=== PATIENT | male | born 1965 | race American Indian/Alaskan Native ===

== ENCOUNTER 2018-10-19 18:59 | Emergency (ER) | payer MEDICARE ==
[2018-10-19 20:23] LABS: Basophils % (Auto) 0.5 % (0.0-1.8); Eosinophils # (Auto) 0.1 K/mm3 (0.0-0.4); Eosinophils % (Auto) 2.6 % (0.0-4.3); Hematocrit 38.6 % (35.5-45.6); Hemoglobin 13.6 gm/dl (11.8-15.2); Lymphocytes # (Auto) 1.6 K/mm3 (1.2-5.4); Lymphocytes % (Auto) 46.4 % (13.4-35.0); Mean Corpuscular HGB Conc 35 % (32-34); Mean Corpuscular Volume 94 fl (84-94); Monocytes # (Auto) 0.4 K/mm3 (0.0-0.8); Monocytes % (Auto) 11.5 % (0.0-7.3); Platelet Count 191 K/mm3 (140-440); Red Blood Count 4.12 M/mm3 (3.65-5.03); Red Cell Distribution Width 13.3 % (13.2-15.2)
[2018-10-19 20:56] LABS: Bilirubin,Urine NEG (Negative); Blood,Urine NEG (Negative); Color,Urine Straw (Yellow); Protein,Urine <15 mg/dL mg/dL (Negative); Urobilinogen,Urine < 2.0 mg/dL (<2.0); WBC,Urine < 1.0 /HPF (0.0-6.0)
[2018-10-19 20:56] LABS: Creatine Kinase MB 1.7 ng/mL (0.0-4.0)
[2018-10-19 20:57] LABS: Alanine Aminotransferase 13 units/L (7-56); Albumin 3.9 g/dL (3.9-5); BUN/Creatinine Ratio 11; Blood Urea Nitrogen 10 mg/dL (9-20); Calcium 8.9 mg/dL (8.4-10.2); Hemolysis Index 8
--- NOTE | 2018-10-19 21:05 | XRay Report ---
FINAL REPORT EXAM: XR CHEST ROUTINE 2V HISTORY: Cough and congestion COMPARISON: August 2018 FINDINGS:: Frontal and lateral views of the chest obtained. Heart normal in size. Prior median quiles otomy.. No focal consolidation or effusion. No pneumothorax. Visualized bony thorax is grossly intact . IMPRESSION:: No acute findings.
--- NOTE | 2018-10-19 21:25 | Emergency Department Report ---
ED General Adult HPI - General Chief complaint: Dizziness Stated complaint: DIZZY,PASSING Time Seen by Provider: 10/19/18 20:53 Source: patient Mode of arrival: Ambulatory Limitations: Other - History of Present Illness Initial comments: Patient is a 53-year-old male past history of HIV CABG lupus and COPD who presents with syncopal episode. Patient states that he had a syncopal episode today he states that this is been going on. Much every day for the last 23 days. Patient states that he has some mild body pain all over his body. Patient denies any nausea or vomiting. He was admitted to this hospital 2 weeks ago for a similar complaint and had a full workup. Patient has no chest pain and was brought in by EMS. - Related Data Home Medications Medication Instructions Recorded Confirmed Last Taken Dronabinol [Marinol] 10 mg PO BID 09/20/18 09/20/18 09/19/18 22:00 Tapentadol HCl [Nucynta] 75 mg PO BID 09/20/18 09/20/18 09/19/18 22:00 Tapentadol HCl [Nucynta] 75 mg PO DAILY 09/20/18 09/20/18 09/18/18 ARIPiprazole [Abilify] 50 mg PO DAILY 09/21/18 09/21/18 Unknown Clopidogrel Bisulfate [Plavix] 75 mg PO DAILY 09/21/18 09/21/[address] [Depakote Dr] 500 mg PO DAILY 09/21/18 09/21/18 Unknown Doxepin [SINEquan] 10 mg PO QHS 09/21/18 09/21/18 Unknown Furosemide [Lasix] 40 mg PO DAILY 09/21/18 09/21/18 Unknown Potassium Chloride [K-Dur] 20 meq PO QDAY 09/21/18 09/21/18 Unknown Rosuvastatin Calcium [Crestor] 40 mg PO DAILY 09/21/18 09/21/18 Unknown busPIRone [Buspar] 10 mg PO DAILY 09/21/18 09/21/18 Unknown Previous Rx's Medication Instructions Recorded Last Taken Type Doxycycline [Vibramycin CAP] 100 mg PO Q12HR #10 capsule 09/09/18 09/19/18 Rx Acetaminophen/Codeine [Tylenol 1 tab PO Q6H PRN #14 tab 09/17/18 09/19/18 Rx /Codeine # 3 tab] Ofloxacin 0.3% [Ocuflox] 1 - 2 drops OP TID #1 bottle 09/18/18 09/19/18 Rx Meclizine HCl [Meclizine CHEW] 25 mg PO Q6H #20 tab.chew 10/19/18 Unknown Rx oxyCODONE /ACETAMINOPHEN [Percocet 1 tab PO Q4HR #7 tab 10/19/18 Unknown Rx 5/325] Allergies Allergy/AdvReac Type Severity Reaction Status Date / Time metoclopramide [From Reglan] Allergy Anaphylaxis Verified 09/09/18 01:28 prochlorperazine Allergy Anaphylaxis Verified 09/09/18 01:28 [From Compazine] promethazine [From Phenergan] Allergy Anaphylaxis Verified 09/09/18 01:28 ED Review of Systems ROS: Stated complaint: DIZZY,PASSING Other details as noted in HPI Constitutional: denies: chills, fever Eyes: denies: eye pain, eye discharge, vision change ENT: denies: ear pain, throat pain Respiratory: denies: cough, shortness of breath, wheezing Cardiovascular: syncope. denies: chest pain, palpitations Endocrine: no symptoms reported Gastrointestinal: denies: abdominal pain, nausea, diarrhea Genitourinary: denies: urgency, dysuria Musculoskeletal: denies: back pain, joint swelling, arthralgia Skin: denies: rash, lesions Neurological: denies: headache, weakness, paresthesias Psychiatric: denies: anxiety, depression Hematological/Lymphatic: denies: easy bleeding, easy bruising ED Past Medical Hx - Past Medical History Previous Medical History?: Yes Hx Hypertension: Yes Hx Heart Attack/AMI: Yes (x6 CABG 2016) Hx Congestive Heart Failure: Yes Hx Diabetes: Yes Hx Seizures: Yes Hx Psychiatric Treatment: Yes (PTSD,depression) Hx Asthma: Yes Hx COPD: Yes Hx HIV: Yes (Off meds x 4 months) Additional medical history: Cerebral palsy - Surgical History Past Surgical History?: Yes Additional Surgical History: CABG - Social History Smoking Status: Current Every Day Smoker - Medications Home Medications: Home Medications Medication Instructions Recorded Confirmed Last Taken Type Doxycycline [Vibramycin CAP] 100 mg PO Q12HR #10 capsule 09/09/18 09/20/18 09/19/18 Rx Acetaminophen/Codeine [Tylenol 1 tab PO Q6H PRN #14 tab 09/17/18 09/20/18 09/19/18 Rx /Codeine # 3 tab] Ofloxacin 0.3% [Ocuflox] 1 - 2 drops OP TID #1 bottle 09/18/18 09/20/18 09/19/18 Rx Dronabinol [Marinol] 10 mg PO BID 09/20/18 09/20/18 09/19/18 22:00 History Tapentadol HCl [Nucynta] 75 mg PO BID 09/20/18 09/20/18 09/19/18 22:00 History Tapentadol HCl [Nucynta] 75 mg PO DAILY 09/20/18 09/20/18 09/18/18 History ARIPiprazole [Abilify] 50 mg PO DAILY 09/21/18 09/21/18 Unknown History Clopidogrel Bisulfate [Plavix] 75 mg PO DAILY 09/21/18 09/21/[address] [Depakote Dr] 500 mg PO DAILY 09/21/18 09/21/18 Unknown History Doxepin [SINEquan] 10 mg PO QHS 09/21/18 09/21/18 Unknown History Furosemide [Lasix] 40 mg PO DAILY 09/21/18 09/21/18 Unknown History Potassium Chloride [K-Dur] 20 meq PO QDAY 09/21/18 09/21/18 Unknown History Rosuvastatin Calcium [Crestor] 40 mg PO DAILY 09/21/18 09/21/18 Unknown History busPIRone [Buspar] 10 mg PO DAILY 09/21/18 09/21/18 Unknown History Meclizine HCl [Meclizine CHEW] 25 mg PO Q6H #20 tab.chew 10/19/18 Unknown Rx oxyCODONE /ACETAMINOPHEN [Percocet 1 tab PO Q4HR #7 tab 10/19/18 Unknown Rx 5/325] ED Physical Exam - General Limitations: Other General appearance: alert, in no apparent distress - Head Head exam: Present: atraumatic, normocephalic - Eye Eye exam: Present: normal appearance - ENT ENT exam: Present: mucous membranes moist - Neck Neck exam: Present: normal inspection - Respiratory Respiratory exam: Present: normal lung sounds bilaterally. Absent: respiratory distress - Cardiovascular Cardiovascular Exam: Present: regular rate, normal rhythm. Absent: systolic murmur, diastolic murmur, rubs, gallop - GI/Abdominal GI/Abdominal exam: Present: soft, normal bowel sounds - Rectal Rectal exam: Present: deferred - Extremities Exam Extremities exam: Present: normal inspection - Back Exam Back exam: Present: normal inspection - Neurological Exam Neurological exam: Present: alert, oriented X3 - Psychiatric Psychiatric exam: Present: normal affect, normal mood - Skin Skin exam: Present: warm, dry, intact, normal color. Absent: rash ED Course Vital Signs 10/19/18 10/19/18 10/19/18 19:31 21:12 21:15 Temperature 98.6 F Pulse Rate 84 82 73 Respiratory 20 24 Rate Blood Pressure 135/82 127/79 O2 Sat by Pulse 99 94 Oximetry ED Medical Decision Making - Lab Data Result diagrams: 10/19/18 20:00 10/19/18 20:00 Lab Results 10/19/18 10/19/18 10/19/18 Range/Units 19:58 20:00 20:00 WBC 3.4 L (4.5-11.0) K/mm3 RBC 4.12 (3.65-5.03) M/mm3 Hgb 13.6 (11.8-15.2) gm/dl Hct 38.6 (35.5-45.6) % MCV 94 (84-94) fl MCH 33 H (28-32) pg MCHC 35 H (32-34) % RDW 13.3 (13.2-15.2) % Plt Count 191 (140-440) K/mm3 Lymph % (Auto) 46.4 H (13.4-35.0) % [place] % (Auto) 11.5 H (0.0-7.3) % Eos % (Auto) 2.6 (0.0-4.3) % Baso % (Auto) 0.5 (0.0-1.8) % Lymph # 1.6 (1.2-5.4) K/mm3 [place] # 0.4 (0.0-0.8) K/mm3 Eos # 0.1 (0.0-0.4) K/mm3 Baso # 0.0 (0.0-0.1) K/mm3 Seg Neutrophils % 39.0 L (40.0-70.0) % Seg Neutrophils # 1.3 L (1.8-7.7) K/mm3 Sodium 138 (137-145) mmol/L Potassium 4.7 (3.6-5.0) mmol/L Chloride 104.7 (98-107) mmol/L Carbon Dioxide 23 (22-30) mmol/L Anion Gap 15 mmol/L BUN 10 (9-20) mg/dL Creatinine 0.9 (0.8-1.5) mg/dL Estimated GFR > 60 ml/min BUN/Creatinine Ratio 11 % Glucose 105 H (75-100) mg/dL Calcium 8.9 (8.4-10.2) mg/dL Total Bilirubin 0.30 (0.1-1.2) mg/dL AST 16 (5-40) units/L ALT 13 (7-56) units/L Alkaline Phosphatase 81 (35-129) units/L Total Creatine Kinase 129 (55-170) units/L CK-MB (CK-2) 1.7 (0.0-4.0) ng/mL CK-MB (CK-2) Rel Index 1.3 (0-4) Troponin T < 0.010 (0.00-0.029) ng/mL Total Protein 7.4 (6.3-8.2) g/dL Albumin 3.9 (3.9-5) g/dL Albumin/Globulin Ratio 1.1 % Lipase 29 (13-60) units/L Urine Color Straw (Yellow) Urine Turbidity Clear (Clear) Urine pH 7.0 (5.0-7.0) Ur Specific [place] 1.010 (1.003-1.030) Urine Protein <15 mg/dl (Negative) mg/dL Urine Glucose (UA) Neg (Negative) mg/dL Urine Ketones Neg (Negative) mg/dL Urine Blood Neg (Negative) Urine Nitrite Neg (Negative) Urine Bilirubin Neg (Negative) Urine Urobilinogen < 2.0 (<2.0) mg/dL Ur Leukocyte Esterase Neg (Negative) Urine WBC (Auto) < 1.0 (0.0-6.0) /HPF Urine RBC (Auto) 1.0 (0.0-6.0) /HPF - EKG Data -: EKG Interpreted by Me - EKG Data 10/19/18 21:56 K she shows normal sinus rhythm no ST segment elevation noted T-wave inversion normal axis. - Radiology Data Radiology results: report reviewed, image reviewed Chest x-ray: Shows no acute cardiopulmonary process prior sternotomy wires. Head CT: Shows no acute intracranial process - Medical Decision Making Chief medical diagnosis: Vasogenic syncope Differential medical diagnosis: Arrhythmia, electrolyte abnormality I will get chest x-ray, CBC, BMP, troponin, EKG I will give PATIENT oral Valium The patient's blood work is unremarkable patient states that he does not want to be admitted to the hospital engaged in shared decision-making. Patient states that he will follow-up with his primary care doctor and states that there is "no way I am staying here." I'll send patient home with Percocet and meclizine Critical care attestation.: If time is entered above; I have spent that time in minutes in the direct care of this critically ill patient, excluding procedure time. ED Disposition Clinical Impression: History of syncope, Myalgia Syncope Qualifiers: Syncope type: unspecified Qualified Code(s): R55 - Syncope and collapse Disposition: DC- TO HOME OR SELFCARE Is pt being admited?: No Does the pt Need Aspirin: No Condition: Stable Instructions: Syncope (ED) Prescriptions: Meclizine HCl [Meclizine CHEW] 25 mg PO Q6H #20 tab.chew oxyCODONE /ACETAMINOPHEN [Percocet 5/325] 1 tab PO Q4HR #7 tab Referrals: ARASH CUEVAS MD [Staff Physician] - 3-5 Days
[2018-10-19] MEDS ORDERED: VALIUM PO ONE (21:28)
[2018-10-19 21:29] VITALS: BP 127/79
[2018-10-19] MEDS ORDERED: PERCOCET 5/325 PO ONE (22:06)
--- NOTE | 2018-10-19 22:13 | Cat Scan Report ---
FINAL REPORT EXAM: CT HEAD/BRAIN WO CON HISTORY: Syncope COMPARISON: CT of the head from August 2018. TECHNIQUE: Axial images obtained skull base through vertex. FINDINGS: No acute intracranial hemorrhage, midline shift or pathologic extra axial fluid collection. Stable vo lume loss the right cerebral hemisphere. Ex vacuo dilatation right lateral ventricle. Stable mild chr onic small vessel ischemic disease. Ocular globes are grossly unremarkable. Otherwise, randall-white dif ferentiation preserved. Calvarium grossly intact. Remote bilateral nasal bone fractures. Mastoid air cells are clear. IMPRESSION: No grossly acute intracranial abnormality. Stable volume loss the right cerebral hemisphere and mild chronic small vessel ischemic disease.
== END 2018-10-19 23:49 | disposition home or self-care (01) ==
LOC: ED 18:59
DX: R55 Syncope and collapse (principal); M79.10 Myalgia, unspecified site; I11.0 Hypertensive heart disease with heart failure; I50.9 Heart failure, unspecified; I25.2 Old myocardial infarction; E11.9 Type 2 diabetes mellitus without complications; F32.9 Major depressive disorder, single episode, unspecified; F43.10 Post-traumatic stress disorder, unspecified; J44.9 Chronic obstructive pulmonary disease, unspecified; F17.200 Nicotine dependence, unspecified, uncomplicated; G80.9 Cerebral palsy, unspecified; Z95.1 Presence of aortocoronary bypass graft; Z88.2 Allergy status to sulfonamides; Z88.8 Allergy status to other drugs, medicaments and biological substances
CPT/HCPCS: 36415; 70450; 71046; 80053; 81001; 82550; 82553; 83690; 84484; 85025; 93005; 93010

== ENCOUNTER 2018-11-14 23:28 | Emergency (ER) | payer MEDICARE ==
--- NOTE | 2018-11-15 00:37 | Emergency Department Report ---
ED General Adult HPI - General Chief complaint: Abdominal Pain Stated complaint: ABD PAIN Time Seen by Provider: 11/15/18 00:29 Source: patient, RN notes reviewed, old records reviewed Mode of arrival: Wheelchair Limitations: No Limitations - History of Present Illness Initial comments: This is a 53-year-old gentleman. I have evaluated him multiple times in the past. A few days ago, the patient was in this emergency department, and had a prolonged stay in room 18, with multiple complaints, including dizziness, syncope, diarrhea, incontinence. Of note, the patient was observed on a olive picker without any episodes of hypotension or arrhythmia, did not have any witnessed episodes of syncope, and multiple nurses, multiple physicians chuyin orion myself did not witness any episodes of diarrhea or loss of consciousness. He was seen in consultation with the hospital physician team, who prescribed him antibiotics, and recommended outpatient follow-up. The patient reports that he's been taking his antibiotic. He reports he is going to follow up with a city planner next week. He presents today to the emergency department stating "the same thing is happening to me." The patient is noted to be walking around his room without difficulty. He is noted to be eating food without difficulty or vomiting. He's not had any episodes of diarrhea. I asked the patient if he would like to speak to a heel caser or health care social worker because of housing issues. He indicated that he would like to do that. The patient is currently resting in his room, room 26, in no acute distress. -: Gradual Severity scale (0 -10): 10 - Related Data Home Medications Medication Instructions Recorded Confirmed Last Taken Dronabinol [Marinol] 10 mg PO BID 09/20/18 11/15/18 09/19/18 22:00 Tapentadol HCl [Nucynta] 75 mg PO BID 09/20/18 11/15/18 09/19/18 22:00 ARIPiprazole [Abilify] 50 mg PO DAILY 09/21/18 11/15/18 Unknown Clopidogrel Bisulfate [Plavix] 75 mg PO DAILY 09/21/18 11/15/18 Unknown Divalproex [Renetta Dykes] 500 mg PO DAILY 09/21/18 11/15/18 Unknown Doxepin [SINEquan] 10 mg PO QHS 09/21/18 11/15/18 Unknown Furosemide [Lasix] 40 mg PO DAILY 09/21/18 11/15/18 Unknown Potassium Chloride [K-Dur] 20 meq PO QDAY 09/21/18 11/15/18 Unknown Rosuvastatin Calcium [Crestor] 40 mg PO DAILY 09/21/18 11/15/18 Unknown busPIRone [Buspar] 10 mg PO DAILY 09/21/18 11/15/18 Unknown Oxycodone HCl [Oxycontin] 20 mg PO Q12H 11/12/18 11/15/18 Unknown Previous Rx's Medication Instructions Recorded Last Taken Type Doxycycline [Vibramycin CAP] 100 mg PO Q12HR #10 capsule 09/09/18 09/19/18 Rx Acetaminophen/Codeine [Tylenol 1 tab PO Q6H PRN #14 tab 09/17/18 09/19/18 Rx /Codeine # 3 tab] Ofloxacin 0.3% [Ocuflox] 1 - 2 drops OP TID #1 bottle 09/18/18 09/19/18 Rx Meclizine HCl [Meclizine CHEW] 25 mg PO Q6H #20 tab.chew 10/19/18 Unknown Rx oxyCODONE /ACETAMINOPHEN [Percocet 1 tab PO Q4HR #7 tab 10/19/18 Unknown Rx 5/325] Oxycodone HCl/Acetaminophen 1 each PO Q6HR PRN #20 tablet 11/12/18 Unknown Rx [Percocet 10/325 mg] levoFLOXacin [Levaquin] 750 mg PO QDAY #14 tablet 11/12/18 Unknown Rx metroNIDAZOLE [Flagyl] 500 mg PO Q8HR #21 tablet 11/12/18 Unknown Rx Allergies Allergy/AdvReac Type Severity Reaction Status Date / Time metoclopramide [From Reglan] Allergy Anaphylaxis Verified 09/09/18 01:28 prochlorperazine Allergy Anaphylaxis Verified 09/09/18 01:28 [From Compazine] promethazine [From Phenergan] Allergy Anaphylaxis Verified 09/09/18 01:28 ED Review of Systems ROS: Stated complaint: ABD PAIN Other details as noted in HPI Constitutional: denies: fever, malaise Eyes: denies: vision change Respiratory: denies: cough Cardiovascular: denies: chest pain Gastrointestinal: diarrhea. denies: abdominal pain Psychiatric: anxiety ED Past Medical Hx - Past Medical History Previous Medical History?: Yes Hx Hypertension: Yes Hx CVA: Yes (left sided weakness) Hx Heart Attack/AMI: Yes (x6 CABG 2016) Hx Congestive Heart Failure: Yes Hx Diabetes: Yes Hx Seizures: Yes Hx Psychiatric Treatment: Yes (PTSD,depression) Hx Asthma: Yes Hx COPD: Yes Hx HIV: Yes (Off meds x 4 months) Additional medical history: Cerebral palsy - Surgical History Past Surgical History?: Yes Additional Surgical History: CABG - Social History Smoking Status: Current Every Day Smoker Substance Use Type: Alcohol, Marijuana - Medications Home Medications: Home Medications Medication Instructions Recorded Confirmed Last Taken Type Doxycycline [Vibramycin CAP] 100 mg PO Q12HR #10 capsule 09/09/18 11/15/18 09/19/18 Rx Acetaminophen/Codeine [Tylenol 1 tab PO Q6H PRN #14 tab 09/17/18 11/15/18 09/19/18 Rx /Codeine # 3 tab] Ofloxacin 0.3% [Ocuflox] 1 - 2 drops OP TID #1 bottle 09/18/18 11/15/18 09/19/18 Rx Dronabinol [Marinol] 10 mg PO BID 09/20/18 11/15/18 09/19/18 22:00 History Tapentadol HCl [Nucynta] 75 mg PO BID 09/20/18 11/15/18 09/19/18 22:00 History ARIPiprazole [Abilify] 50 mg PO DAILY 09/21/18 11/15/18 Unknown History Clopidogrel Bisulfate [Plavix] 75 mg PO DAILY 09/21/18 11/15/18 Unknown History Divalproex [Renetta Dykes] 500 mg PO DAILY 09/21/18 11/15/18 Unknown History Doxepin [SINEquan] 10 mg PO QHS 09/21/18 11/15/18 Unknown History Furosemide [Lasix] 40 mg PO DAILY 09/21/18 11/15/18 Unknown History Potassium Chloride [K-Dur] 20 meq PO QDAY 09/21/18 11/15/18 Unknown History Rosuvastatin Calcium [Crestor] 40 mg PO DAILY 09/21/18 11/15/18 Unknown History busPIRone [Buspar] 10 mg PO DAILY 09/21/18 11/15/18 Unknown History Meclizine HCl [Meclizine CHEW] 25 mg PO Q6H #20 tab.chew 10/19/18 11/15/18 Unknown Rx oxyCODONE /ACETAMINOPHEN [Percocet 1 tab PO Q4HR #7 tab 10/19/18 11/15/18 Unknown Rx 5/325] Oxycodone HCl [Oxycontin] 20 mg PO Q12H 11/12/18 11/15/18 Unknown History Oxycodone HCl/Acetaminophen 1 each PO Q6HR PRN #20 tablet 11/12/18 11/15/18 Unknown Rx [Percocet 10/325 mg] levoFLOXacin [Levaquin] 750 mg PO QDAY #14 tablet 11/12/18 11/15/18 Unknown Rx metroNIDAZOLE [Flagyl] 500 mg PO Q8HR #21 tablet 11/12/18 11/15/18 Unknown Rx ED Physical Exam - General Limitations: Physical Limitation General appearance: alert, in no apparent distress - Head Head exam: Present: atraumatic, normocephalic - Eye Eye exam: Present: normal appearance, EOMI. Absent: nystagmus - ENT ENT exam: Present: normal exam, normal orophraynx, mucous membranes moist - Neck Neck exam: Present: normal inspection, full ROM. Absent: tenderness, meningismus - Respiratory Respiratory exam: Present: normal lung sounds bilaterally. Absent: respiratory distress - Cardiovascular Cardiovascular Exam: Present: regular rate, normal rhythm, normal heart sounds. Absent: bradycardia, tachycardia, irregular rhythm, systolic murmur, diastolic murmur, rubs, gallop - GI/Abdominal GI/Abdominal exam: Present: soft, pulsatile mass. Absent: distended, tenderness, guarding, rebound, rigid - Rectal Rectal exam: Present: deferred - Extremities Exam Extremities exam: Present: normal inspection, full ROM, other (patient moving 4 extremities spontaneously. No palpable cord. No redness, pus or streaking.). Absent: pedal edema, calf tenderness - Back Exam Back exam: Present: normal inspection, full ROM. Absent: paraspinal tenderness, vertebral tenderness - Neurological Exam Neurological exam: Present: alert, oriented X3, normal gait, other (there is no facial droop. Speaking in full sentences. Moving 4 extremities spontaneously.) - Psychiatric Psychiatric exam: Present: normal affect, normal mood - Skin Skin exam: Present: warm, dry, intact, normal color. Absent: rash ED Course Vital Signs 11/14/18 23:36 Temperature 98.2 F Pulse Rate 83 Respiratory 20 Rate Blood Pressure 136/88 O2 Sat by Pulse 97 Oximetry ED Medical Decision Making - Lab Data Vital Signs 11/14/18 23:36 Temperature 98.2 F Pulse Rate 83 Respiratory 20 Rate Blood Pressure 136/88 O2 Sat by Pulse 97 Oximetry - Medical Decision Making Differential diagnosis, including but not limited to: Homelessness, secondary gain, enteritis Assessment and plan: 53-year-old woman who presents to the emergency room, with a wheelchair, but walking around, has numerous bags packed with him, no active vomiting, no active diarrhea, stable vital signs, unremarkable physical exam. The patient appears to have a primary social issue as his main problem. He does not appear to have an acute medical decompensation. A case management consultation has been requested. The patient may be discharged in the [facility] waiting room pending case management evaluation. Critical care attestation.: If time is entered above; I have spent that time in minutes in the direct care of this critically ill patient, excluding procedure time. ED Disposition Clinical Impression: Homelessness Disposition: DC-01 TO HOME OR SELFCARE Is pt being admited?: No Does the pt Need Aspirin: No Condition: Stable Additional Instructions: Continue outpatient medications. Follow up with a primary care doctor or city planner within the next 2 weeks. Return to the emergency room right away with new, worsened, different symptoms. Referrals: VY LEE [Primary Care Provider] - 3-5 Days ADRIEL FLORES MD [Staff Physician] - 3-5 Days
[2018-11-15 03:18] VITALS: BP 134/76
== END 2018-11-15 03:30 | disposition home or self-care (01) ==
LOC: ED 23:28
DX: R42 Dizziness and giddiness (principal); R55 Syncope and collapse; I11.0 Hypertensive heart disease with heart failure; I50.9 Heart failure, unspecified; I25.2 Old myocardial infarction; E11.9 Type 2 diabetes mellitus without complications; F32.9 Major depressive disorder, single episode, unspecified; F43.10 Post-traumatic stress disorder, unspecified; J44.9 Chronic obstructive pulmonary disease, unspecified; F17.200 Nicotine dependence, unspecified, uncomplicated; F12.10 Cannabis abuse, uncomplicated; Z59.0 Homelessness; Z86.73 Personal history of transient ischemic attack (TIA), and cerebral infarction without residual deficits; Z95.1 Presence of aortocoronary bypass graft; Z86.69 Personal history of other diseases of the nervous system and sense organs; Z88.8 Allergy status to other drugs, medicaments and biological substances
CPT/HCPCS: 93005; 93010; 99282

== ENCOUNTER 2018-12-21 08:52 | Inpatient (IN) | payer MEDICARE ==
[2018-12-21 09:35] LABS: Eosinophils # (Auto) 0.2 K/mm3 (0.0-0.4); Eosinophils % (Auto) 4.4 % (0.0-4.3); Hematocrit 42.2 % (35.5-45.6); Hemoglobin 14.4 gm/dl (11.8-15.2); Lymphocytes # (Auto) 1.5 K/mm3 (1.2-5.4); Lymphocytes % (Auto) 37.8 % (13.4-35.0); Mean Corpuscular HGB Conc 34 % (32-34); Mean Corpuscular Volume 91 fl (84-94); Monocytes # (Auto) 0.5 K/mm3 (0.0-0.8); Monocytes % (Auto) 11.9 % (0.0-7.3); Platelet Count 197 K/mm3 (140-440); Red Blood Count 4.64 M/mm3 (3.65-5.03); Red Cell Distribution Width 12.3 % (13.2-15.2)
[2018-12-21] MEDS ORDERED: NORCO 5/325 PO ONE (09:46)
[2018-12-21 09:47] LABS: BUN/Creatinine Ratio 15; Blood Urea Nitrogen 12 mg/dL (9-20); Calcium 8.5 mg/dL (8.4-10.2); Hemolysis Index 34
--- NOTE | 2018-12-21 09:53 | Emergency Department Report ---
HPI - General Chief Complaint: GI Bleed Time Seen by Provider: 12/21/18 09:34 - HPI HPI: Room 22 The patient is a 53-year-old male presented with a chief complaint of syncope and rectal bleeding. Patient states for the past 3 weeks he has had multiple s yncopal episodes daily. Patient states he gets dizzy whenever he stands sits or lays. Patient states he gets dizzy and then has a syncopal episode. The patient states yesterday he has 7-8 syncopal episodes and today he's had approximately 3-4 so far. Patient states for the past 5 days he's noticed streaks of blood on his stool. Patient denies rectal pain. Patient states for the past 3 days he's noticed blood in his urine. Patient denies dysuria. Patient admits to occasional nausea vomiting but denies hematemesis. The patient currently complains of his chronic body aching secondary to his lupus Location: [See above] Duration: [See above] Quality: Pain Severity: Moderate Modifying factors: [see above] Context: [see above] Mode of transportation: [not driving] ED Past Medical Hx - Past Medical History Hx Hypertension: Yes Hx CVA: Yes (left sided weakness) Hx Heart Attack/AMI: Yes (x6 CABG 2016) Hx Congestive Heart Failure: Yes Hx Diabetes: Yes Hx Seizures: Yes Hx Psychiatric Treatment: Yes (PTSD,depression) Hx Asthma: Yes Hx COPD: Yes Hx HIV: Yes (last CD4 count 26 (November 2018)) Additional medical history: Cerebral palsy - Surgical History Additional Surgical History: CABG - Family History Family history: no significant - Social History Smoking Status: Current Some Day Smoker Substance Use Type: None (denies illicit drug use) - Medications Home Medications: Home Medications Medication Instructions Recorded Confirmed Last Taken Type Doxycycline [Vibramycin CAP] 100 mg PO Q12HR #10 capsule 09/09/18 11/15/18 09/19/18 Rx Acetaminophen/Codeine [Tylenol 1 tab PO Q6H PRN #14 tab 09/17/18 11/15/18 09/19/18 Rx /Codeine # 3 tab] Ofloxacin 0.3% [Ocuflox] 1 - 2 drops OP TID #1 bottle 09/18/18 11/15/18 09/19/18 Rx Dronabinol [Marinol] 10 mg PO BID 09/20/18 11/15/18 09/19/18 22:00 History Tapentadol HCl [Nucynta] 75 mg PO BID 09/20/18 11/15/18 09/19/18 22:00 History ARIPiprazole [Abilify] 50 mg PO DAILY 09/21/18 11/15/18 Unknown History Clopidogrel Bisulfate [Plavix] 75 mg PO DAILY 09/21/18 11/15/[address] [Depakote Dr] 500 mg PO DAILY 09/21/18 11/15/18 Unknown History Doxepin [SINEquan] 10 mg PO QHS 09/21/18 11/15/18 Unknown History Furosemide [Lasix] 40 mg PO DAILY 09/21/18 11/15/18 Unknown History Potassium Chloride [K-Dur] 20 meq PO QDAY 09/21/18 11/15/18 Unknown History Rosuvastatin Calcium [Crestor] 40 mg PO DAILY 09/21/18 11/15/18 Unknown History busPIRone [Buspar] 10 mg PO DAILY 09/21/18 11/15/18 Unknown History Meclizine HCl [Meclizine CHEW] 25 mg PO Q6H #20 tab.chew 10/19/18 11/15/18 Unknown Rx oxyCODONE /ACETAMINOPHEN [Percocet 1 tab PO Q4HR #7 tab 10/19/18 11/15/18 Unknown Rx 5/325] Oxycodone HCl [Oxycontin] 20 mg PO Q12H 11/12/18 11/15/18 Unknown History Oxycodone HCl/Acetaminophen 1 each PO Q6HR PRN #20 tablet 11/12/18 11/15/18 Unknown Rx [Percocet 10/325 mg] levoFLOXacin [Levaquin] 750 mg PO QDAY #14 tablet 11/12/18 11/15/18 Unknown Rx metroNIDAZOLE [Flagyl] 500 mg PO Q8HR #21 tablet 11/12/18 11/15/18 Unknown Rx ED Review of Systems ROS: Stated complaint: RECTUM BLEEDING/PAIN Other details as noted in HPI Constitutional: no symptoms reported Eyes: denies: eye pain ENT: denies: throat pain Respiratory: no symptoms reported Cardiovascular: denies: chest pain Endocrine: no symptoms reported Gastrointestinal: nausea, vomiting, hematochezia. denies: hematemesis Genitourinary: hematuria Musculoskeletal: myalgia Neurological: other (syncope) Physical Exam - Physical Exam Vital Signs: Vital Signs 12/21/18 08:58 Temperature 98.3 F Pulse Rate 95 H Respiratory 18 Rate Blood Pressure 126/83 [Left] O2 Sat by Pulse 98 Oximetry Physical Exam: GENERAL: The patient is well-developed well-nourished male lying on stretcher not appearing to be in acute distress. [] HEENT: Normocephalic. Atraumatic. Extraocular motions are intact. Patient has moist mucous membranes. NECK: Supple. No meningitic signs are noted. Trachea midline CHEST/LUNGS: Clear to auscultation. There is no respiratory distress noted. HEART/CARDIOVASCULAR: Regular. There is no tachycardia. There is no gallop rub or murmur. ABDOMEN: Abdomen is soft, nontender. Patient has normal bowel sounds. There is no abdominal distention. SKIN: There is no rash. There is no edema. There is no diaphoresis. NEURO: The patient is awake, alert, and oriented. The patient is cooperative. The patient has no focal neurologic deficits. The patient has normal speech. Cranial nerves II through XII grossly intact, no drift MUSCULOSKELETAL: There is no evidence of acute injury. ED Course Vital Signs 12/21/18 08:58 Temperature 98.3 F Pulse Rate 95 H Respiratory 18 Rate Blood Pressure 126/83 [Left] O2 Sat by Pulse 98 Oximetry - EJ/Peripheral Line Neck R Time Out Performed: No Indications: nurses unable to establis Skin Cleansed in Sterile Fashion: Yes Size: 20 Dressing Placed: Tegaderm, tape Patient Tolerated Procedure: no complications ED Medical Decision Making - Lab Data Result diagrams: 12/21/18 09:04 12/21/18 09:04 Laboratory Tests 12/21/18 12/21/18 12/21/18 09:04 09:04 09:04 WBC 3.9 L RBC 4.64 Hgb 14.4 Hct 42.2 MCV 91 MCH 31 MCHC 34 RDW 12.3 L Plt Count 197 Lymph % (Auto) 37.8 H [place] % (Auto) 11.9 H Eos % (Auto) 4.4 H Baso % (Auto) 1.0 Lymph # 1.5 Woodson # 0.5 Eos # 0.2 Baso # 0.0 Seg Neutrophils % 44.9 Seg Neutrophils # 1.8 PT INR APTT D-Dimer Sodium 137 Potassium 3.8 Chloride 103.3 Carbon Dioxide 23 Anion Gap 15 BUN 12 Creatinine 0.8 Estimated GFR > 60 BUN/Creatinine Ratio 15 Glucose 100 Calcium 8.5 Total Bilirubin Direct Bilirubin Indirect Bilirubin AST ALT Alkaline Phosphatase Total Creatine Kinase CK-MB (CK-2) CK-MB (CK-2) Rel Index Troponin T Total Protein Albumin Albumin/Globulin Ratio Valproic Acid Blood Type A POSITIVE Antibody Screen Negative 12/21/18 12/21/18 12/21/18 09:04 09:04 09:38 WBC RBC Hgb Hct MCV MCH MCHC RDW Plt Count Lymph % (Auto) [place] % (Auto) Eos % (Auto) Baso % (Auto) Lymph # Woodson # Eos # Baso # Seg Neutrophils % Seg Neutrophils # PT 12.7 INR 0.90 APTT 28.6 D-Dimer Sodium Potassium Chloride Carbon Dioxide Anion Gap BUN Creatinine Estimated GFR BUN/Creatinine Ratio Glucose Calcium Total Bilirubin 0.30 Direct Bilirubin < 0.2 Indirect Bilirubin 0.1 AST 14 ALT 15 Alkaline Phosphatase 78 Total Creatine Kinase 62 CK-MB (CK-2) 1.1 CK-MB (CK-2) Rel Index 1.7 Troponin T < 0.010 Total Protein 7.5 Albumin 3.7 L Albumin/Globulin Ratio 1.0 Valproic Acid Blood Type Antibody Screen 12/21/18 12/21/18 09:38 09:38 WBC RBC Hgb Hct MCV MCH MCHC RDW Plt Count Lymph % (Auto) [place] % (Auto) Eos % (Auto) Baso % (Auto) Lymph # Woodson # Eos # Baso # Seg Neutrophils % Seg Neutrophils # PT INR APTT D-Dimer 178.98 Sodium Potassium Chloride Carbon Dioxide Anion Gap BUN Creatinine Estimated GFR BUN/Creatinine Ratio Glucose Calcium Total Bilirubin Direct Bilirubin Indirect Bilirubin AST ALT Alkaline Phosphatase Total Creatine Kinase CK-MB (CK-2) CK-MB (CK-2) Rel Index Troponin T Total Protein Albumin Albumin/Globulin Ratio Valproic Acid < 2.8 L Blood Type Antibody Screen - EKG Data -: EKG Interpreted by Me EKG shows normal: sinus rhythm Rate: normal - EKG Data When compared to previous EKG there are: previous EKG unavailable Interpretation: nonspecific ST-T wave zeeshan (T-wave inversions in leads aVL, V2) - Radiology Data Radiology results: report reviewed (CT head), image reviewed (CT head) [facility] [address] [place] [address] Cat Scan Report Signed Patient: MARLY COELHO MR#: [id number] : 1965 Acct:[id number] Age/Sex: 53 / M ADM Date: 12/21/18 Loc: ED Attending Dr: Ordering Physician: ROBIN QUIROGA MD Date of Service: 12/21/18 Procedure(s): CT head/brain wo con Accession Number(s): [id number] cc: ROBIN QUIROGA MD PROCEDURE: CT HEAD/BRAIN WO CON TECHNIQUE: Computerized tomography of the head was performed without contrast material. Coronal and sagittal reformatted images were provided. CT DOSE LENGTH PRODUCT: 920.48 mGy-cm. HISTORY: syncope COMPARISONS: CT head November 12, 2018. FINDINGS: Asymmetrical atrophy of the right cerebral hemisphere may be congenital or chronic. Extra-axial dilatation of the right lateral ventricle noted. Overall similar compared to prior. There is no evidence for acute ischemia. There is no hemorrhage. There is no midline shift. There is no hydrocephalus. There is no mass. Age appropriate randall-white matter attenuation is noted. There is no calvarial fracture. The temporal bones demonstrate aerated mastoid air cells. The middle ears appear unremarkable. Paranasal sinuses are unremarkable. Globes are intact. IMPRESSION: * Comparison with prior will be made as an addendum once requested prior images and report are provided. * No acute intracranial findings. * This document is electronically signed by Suraj Georges MD., December 21 2018 11:12:16 AM ET Transcribed By: TYM Dictated By: SURAJ GEORGES MD Electronically Authenticated By: SURAJ GEORGES MD Signed Date/Time: 12/21/18 1114 DD/ 1011 TD/TT: 12/21/18 1013 - Differential Diagnosis syncope, dysrhythmia, ACS, symptomatic anemia, coagulopathy Critical care attestation.: If time is entered above; I have spent that time in minutes in the direct care of this critically ill patient, excluding procedure time. ED Disposition Clinical Impression: Syncope Disposition: - OP ADMIT IP TO THIS HOSP Is pt being admited?: Yes Does the pt Need Aspirin: No Condition: Stable Instructions: Syncope (ED) [facility] [Referring] - 3-5 Days Forms: Accompanied Note Time of Disposition: 12:50 (Hospitalist notified (Dr Turner))
[2018-12-21 10:15] LABS: INR 0.9 (0.87-1.13); Partial Thromboplastin Time 28.6 Sec. (24.2-36.6)
[2018-12-21 10:25] LABS: Alanine Aminotransferase 15 units/L (7-56); Albumin 3.7 g/dL (3.9-5)
[2018-12-21 10:27] LABS: Bilirubin,Direct < 0.2 mg/dL (0-0.2)
--- NOTE | 2018-12-21 11:14 | Cat Scan Report ---
PROCEDURE: CT HEAD/BRAIN WO CON TECHNIQUE: Computerized tomography of the head was performed without contrast material. Coronal and s agittal reformatted images were provided. CT DOSE LENGTH PRODUCT: 920.48 mGy-cm. HISTORY: syncope COMPARISONS: CT head November 12, 2018. FINDINGS: Asymmetrical atrophy of the right cerebral hemisphere may be congenital or chronic. Extra-axial dilat ation of the right lateral ventricle noted. Overall similar compared to prior. There is no evidence for acute ischemia. There is no hemorrhage. There is no midline shift. There is no hydrocephalus. There is no mass. Age appropriate randall-white matter attenuation is noted. There is no calvarial fracture. The temporal bones demonstrate aerated mastoid air cells. The middle ears appear unremarkable. Paranasal sinuses are unremarkable. Globes are intact. IMPRESSION: * Comparison with prior will be made as an addendum once requested prior images and report are provi ded. * No acute intracranial findings. * This document is electronically signed by Suraj Paula MD., December 21 2018 11:12:16 AM ET
[2018-12-21] MEDS ORDERED: ZOFRAN IV ONE (11:48)
[2018-12-21] MEDS ORDERED: SUBLIMAZE IV ONE (11:48)
[2018-12-21 11:50] LABS: Creatine Kinase MB 1.1 ng/mL (0.0-4.0)
--- NOTE | 2018-12-21 13:17 | History and Physical Report ---
History of Present Illness Chief complaint: Im bleeding History of present illness: 53 YO Male with HIV, CVA, CP, SLE, CAD S/P CABG, NV, Cardiomyopathy, DM, PTSD, Depression, HTN, Asthma, Chronic Pain Syndrome, COPD, Nicotine Dependence presents to ED for evaluation. Pt states that he has experienced blood in his stool over the past 5 days, dizziness, as well as 7 episodes of loss of consciousness when rising from a recumbent to a standing position which are preceded by nausea. Pt transported to [facility] via private vehicle. Pt seen and evaluated in ED and found to have GI Bleeding, as well as recurrent syncope and dizziness. pt denies fever, chills, CP, Palpitations, Trauma, Prolonged travel/immobility, unilateral leg swelling, calf pain, or recent ill contacts. Pt last admission on 09/20/18 reviewed. Past History Past Medical History: acute NV, CAD, diabetes, HIV/AIDS, hypertension, hyperlipidemia, seizures, other (Cerabral Palsy, Nicotine Dependence) Past Surgical History: CABG Social history: , smoking Family history: diabetes, hypertension Medications and Allergies Allergies Allergy/AdvReac Type Severity Reaction Status Date / Time metoclopramide [From Reglan] Allergy Anaphylaxis Verified 12/21/18 08:53 prochlorperazine Allergy Anaphylaxis Verified 12/21/18 08:53 [From Compazine] promethazine [From Phenergan] Allergy Anaphylaxis Verified 12/21/18 08:53 Home Medications Medication Instructions Recorded Confirmed Last Taken Type Doxycycline [Vibramycin CAP] 100 mg PO Q12HR #10 capsule 09/09/18 11/15/18 09/19/18 Rx Acetaminophen/Codeine [Tylenol 1 tab PO Q6H PRN #14 tab 09/17/18 11/15/18 09/19/18 Rx /Codeine # 3 tab] Ofloxacin 0.3% [Ocuflox] 1 - 2 drops OP TID #1 bottle 09/18/18 11/15/18 09/19/18 Rx Dronabinol [Marinol] 10 mg PO BID 09/20/18 11/15/18 09/19/18 22:00 History Tapentadol HCl [Nucynta] 75 mg PO BID 09/20/18 11/15/18 09/19/18 22:00 History ARIPiprazole [Abilify] 50 mg PO DAILY 09/21/18 11/15/18 Unknown History Clopidogrel Bisulfate [Plavix] 75 mg PO DAILY 09/21/18 11/15/18 Unknown History Divalproex [Renetta Dykes] 500 mg PO DAILY 09/21/18 11/15/18 Unknown History Doxepin [SINEquan] 10 mg PO QHS 09/21/18 11/15/18 Unknown History Furosemide [Lasix] 40 mg PO DAILY 09/21/18 11/15/18 Unknown History Potassium Chloride [K-Dur] 20 meq PO QDAY 09/21/18 11/15/18 Unknown History Rosuvastatin Calcium [Crestor] 40 mg PO DAILY 09/21/18 11/15/18 Unknown History busPIRone [Buspar] 10 mg PO DAILY 09/21/18 11/15/18 Unknown History Meclizine HCl [Meclizine CHEW] 25 mg PO Q6H #20 tab.chew 10/19/18 11/15/18 Unknown Rx oxyCODONE /ACETAMINOPHEN [Percocet 1 tab PO Q4HR #7 tab 10/19/18 11/15/18 Unknown Rx 5/325] Oxycodone HCl [Oxycontin] 20 mg PO Q12H 11/12/18 11/15/18 Unknown History Oxycodone HCl/Acetaminophen 1 each PO Q6HR PRN #20 tablet 11/12/18 11/15/18 Unknown Rx [Percocet 10/325 mg] levoFLOXacin [Levaquin] 750 mg PO QDAY #14 tablet 11/12/18 11/15/18 Unknown Rx metroNIDAZOLE [Flagyl] 500 mg PO Q8HR #21 tablet 11/12/18 11/15/18 Unknown Rx Review of Systems Constitutional: no weight loss, no weight gain, no fever, no chills Ears, nose, mouth and throat: no ear pain, no ear discharge, no tinnitis, no decreased hearing, no nose pain Cardiovascular: no chest pain, no orthopnea, no palpitations, no rapid/irregular heart beat, no edema Respiratory: no cough, no cough with sputum, no excessive sputum, no hemoptysis Gastrointestinal: nausea, no vomiting, no diarrhea, no constipation, no change in bowel habits, no hematemesis Genitourinary Male: no hematuria, no flank pain, no discharge, no urinary frequency, no urinary hesitancy Rectal: no pain, no incontinence, no bleeding Musculoskeletal: no neck stiffness, no neck pain, no shooting arm pain, no arm numbness/tingling, no low back pain, no shooting leg pain Integumentary: no rash, no pruritis, no redness, no sores, no wounds Neurological: syncope, no paralysis, no weakness, no parathesias, no numbness, no tingling Psychiatric: no anxiety, no memory loss, no sleep disturbances, no insomnia, no hypersomnia Endocrine: no cold intolerance, no heat intolerance, no polyphagia, no excessive thirst, no polydipsia, no polyuria Hematologic/Lymphatic: no easy bruising, no easy bleeding, no lymphadenopathy, no lymphedema Allergic/Immunologic: no urticaria, no allergic rhinitis, no wheezing, no persistent infections, no anaphylaxis, no angioedema Exam - Constitutional Vitals: Temp Pulse Resp BP Pulse Ox 98.3 F 95 H 16 126/83 98 12/21/18 08:58 12/21/18 08:58 12/21/18 10:08 12/21/18 08:58 12/21/18 08:58 General appearance: Present: mild distress - EENT Eyes: Present: PERRL ENT: hearing intact, clear oral mucosa - Neck Neck: Present: supple, normal ROM - Respiratory Respiratory effort: normal Respiratory: bilateral: CTA - Cardiovascular Heart Sounds: Present: S1 & S2. Absent: rub, click - Extremities Extremities: pulses symmetrical, No edema Peripheral Pulses: within normal limits - Abdominal General gastrointestinal: Present: soft, non-tender, non-distended, normal bowel sounds Male genitourinary: Present: normal - Integumentary Integumentary: Present: clear, warm, dry - Musculoskeletal Musculoskeletal: gait normal, strength equal bilaterally - Psychiatric Psychiatric: appropriate mood/affect, intact judgment & insight - Neurologic Neurologic: CNII-XII intact, moves all extremities Results - Labs CBC & Chem 7: 12/21/18 09:04 12/21/18 09:04 Labs: Abnormal lab results 12/21/18 12/21/18 12/21/18 Range/Units 09:04 09:04 09:38 WBC 3.9 L (4.5-11.0) K/mm3 RDW 12.3 L (13.2-15.2) % Lymph % (Auto) 37.8 H (13.4-35.0) % [place] % (Auto) 11.9 H (0.0-7.3) % Eos % (Auto) 4.4 H (0.0-4.3) % Albumin 3.7 L (3.9-5) g/dL Valproic Acid < 2.8 L (50-100) ug/mL Assessment and Plan - Patient Problems (1) GI bleed Current Visit: Yes Status: Acute Qualifiers: GI bleed type/associated pathology: anorectal hemorrhage Qualified Code(s): K62.5 - Hemorrhage of anus and rectum Plan to address problem: CBC, IV ppi therapy, GI consulted, no transfusion at this time. repeat cbc. (2) HIV (human immunodeficiency virus infection) Current Visit: Yes Status: Acute Plan to address problem: Otupatient ID F/U care, continue current therapy (3) Diabetes Current Visit: Yes Status: Acute Plan to address problem: ADA diet, insulin, accu check (4) HTN (hypertension) Current Visit: Yes Status: Acute Qualifiers: Hypertension type: essential hypertension Qualified Code(s): I10 - Essential (primary) hypertension Plan to address problem: monitor bp q shift, continue medical management. (5) Nicotine dependence Current Visit: Yes Status: Acute Qualifiers: Nicotine product type: cigarettes Plan to address problem: Smoking cessation counseling, supportive care. (6) Cardiomyopathy Current Visit: Yes Status: Acute Qualifiers: Cardiomyopathy type: other Qualified Code(s): I42.8 - Other cardiomyopathies Plan to address problem: Supportive care, Strict I/O, daily weight, monitor uop q shift, blood pressure control, no active disease at this time, continue to monitor. (7) DVT prophylaxis Current Visit: Yes Status: Acute Plan to address problem: SCD to BLE while in bed, Hold anticoagulation due to GI bleeding,
[2018-12-21] MEDS ORDERED: ZOFRAN IV PRN (13:18)
[2018-12-21] MEDS ORDERED: SODIUM CHLORIDE FLUSH SYRINGE 10 ML IV PRN (13:18)
[2018-12-21] MEDS ORDERED: PROVENTIL IH PRN (13:18)
[2018-12-21] MEDS ORDERED: TYLENOL PO PRN (13:18)
[2018-12-21] MEDS ORDERED: TYLENOL #3 PO PRN (13:20)
[2018-12-21] MEDS ORDERED: DepaKENE Liq PO ONE (13:26)
[2018-12-21] MEDS: PERCOCET 5/325 PO SCH ×3 (14:00→22:00)
[2018-12-21] MEDS ORDERED: NACL 0.45% 1000 ML 1,000 ML IV SCH (14:00)
[2018-12-21] MEDS: ANTIVERT PO SCH ×2 (14:05→18:56)
[2018-12-21] MEDS ORDERED: PERCOCET 5/325 ONE (19:01)
[2018-12-21] MEDS ORDERED: DRONABINOL 10 MG PO SCH (22:00)
[2018-12-21] MEDS ORDERED: VIBRAMYCIN PO SCH (22:00)
[2018-12-21] MEDS: OxyCONTIN PO SCH (22:02)
[2018-12-21] MEDS: MARINOL PO SCH (22:03)
[2018-12-21] MEDS: PROTONIX IV SCH (22:06)
[2018-12-21] MEDS: SINEquan PO SCH (22:07)
[2018-12-22] MEDS: PERCOCET 5/325 PO SCH ×6 (03:06→21:23)
[2018-12-22] MEDS: ANTIVERT PO SCH ×4 (03:07→18:39)
[2018-12-22] MEDS: SODIUM CHLORIDE FLUSH SYRINGE 10 ML IV SCH ×3 (03:10→21:25)
[2018-12-22 09:23] LABS: Basophils % (Auto) 0.9 % (0.0-1.8); Eosinophils # (Auto) 0.1 K/mm3 (0.0-0.4); Eosinophils % (Auto) 3.3 % (0.0-4.3); Hematocrit 38.9 % (35.5-45.6); Hemoglobin 13.4 gm/dl (11.8-15.2); Lymphocytes # (Auto) 1.4 K/mm3 (1.2-5.4); Lymphocytes % (Auto) 34.6 % (13.4-35.0); Mean Corpuscular HGB Conc 34 % (32-34); Mean Corpuscular Volume 91 fl (84-94); Monocytes # (Auto) 0.5 K/mm3 (0.0-0.8); Monocytes % (Auto) 11.8 % (0.0-7.3); Platelet Count 171 K/mm3 (140-440); Red Blood Count 4.27 M/mm3 (3.65-5.03); Red Cell Distribution Width 12.3 % (13.2-15.2)
[2018-12-22] MEDS ORDERED: NON-FORMULARY (Rosuvastatin Calcium [Crestor] 40 MG) PO SCH (10:00)
[2018-12-22] MEDS: LASIX PO SCH (10:55)
[2018-12-22] MEDS: PROTONIX IV SCH ×2 (10:57→21:22)
[2018-12-22] MEDS: OxyCONTIN PO SCH ×2 (10:57→21:22)
[2018-12-22] MEDS: K-DUR PO SCH (10:58)
[2018-12-22] MEDS ORDERED: ABILIFY PO SCH (11:00)
[2018-12-22] MEDS: NUCYNTA PO SCH ×2 (14:20→23:18)
--- NOTE | 2018-12-22 14:20 | Progress Note ---
Assessment and Plan Assessment and plan: --Lower GI bleeding; Mild improvement, patient is hemodynamically stable H&H stable, continue supportive care Pending GI evaluation --Type 2 diabetes mellitus; Accu-Chek sliding scale coverage and ADA diet Insulin as needed --Hypertension; well controlled Continue current antihypertensives and when necessary medications --History of HIV; not on antiretrovirals Patient with follow-up ID/health department upon discharge Consider ID evaluation if needed --Chronic pain syndrome; patient is on multiple pain medications Check with pharmacy, continue current management --History of seizure disorder; continue antiepileptic medications Seizure precautions --DVT prophylaxis; SCDs We'll closely monitor the patient and adjust management as needed Follow GI evaluation and recommendations Possible discharge in 1-2 days if stable Plan of care reviewed with the patient History Interval history: Patient seen and examined this afternoon medical records reviewed Admitted with rectal bleeding intermittent for the last 5 days Patient reports that he had mild rectal bleeding[red blood] this morning, Denies nausea vomiting or hematemesis. Patient comfortable not in acute distress Vital signs reviewed, stable Hospitalist Physical - Constitutional Vitals: Temp Pulse Resp BP Pulse Ox 98.2 F 74 20 124/79 99 12/22/18 11:26 12/22/18 11:26 12/22/18 11:26 12/22/18 11:26 12/22/18 11:26 General appearance: Present: no acute distress, well-nourished - EENT Eyes: Present: PERRL, EOM intact - Neck Neck: Present: supple, normal ROM - Respiratory Respiratory effort: normal Respiratory: negative: rales, rhonchi, wheezing - Cardiovascular Rhythm: regular Heart Sounds: Present: S1 & S2 - Extremities Extremities: no ischemia, No edema - Abdominal General gastrointestinal: soft, non-tender, non-distended, normal bowel sounds - Integumentary Integumentary: Present: clear, warm - Psychiatric Psychiatric: appropriate mood/affect, cooperative - Neurologic Neurologic: CNII-XII intact, moves all extremities Results - Labs CBC & Chem 7: 12/22/18 08:40 12/21/18 09:04 Labs: Laboratory Last Values WBC 4.1 K/mm3 (4.5-11.0) L 12/22/18 08:40 RBC 4.27 M/mm3 (3.65-5.03) 12/22/18 08:40 Hgb 13.4 gm/dl (11.8-15.2) 12/22/18 08:40 Hct 38.9 % (35.5-45.6) 12/22/18 08:40 MCV 91 fl (84-94) 12/22/18 08:40 MCH 31 pg (28-32) 12/22/18 08:40 MCHC 34 % (32-34) 12/22/18 08:40 RDW 12.3 % (13.2-15.2) L 12/22/18 08:40 Plt Count 171 K/mm3 (140-440) 12/22/18 08:40 Lymph % (Auto) 34.6 % (13.4-35.0) 12/22/18 08:40 [place] % (Auto) 11.8 % (0.0-7.3) H 12/22/18 08:40 Eos % (Auto) 3.3 % (0.0-4.3) 12/22/18 08:40 Baso % (Auto) 0.9 % (0.0-1.8) 12/22/18 08:40 Lymph # 1.4 K/mm3 (1.2-5.4) 12/22/18 08:40 [place] # 0.5 K/mm3 (0.0-0.8) 12/22/18 08:40 Eos # 0.1 K/mm3 (0.0-0.4) 12/22/18 08:40 Baso # 0.0 K/mm3 (0.0-0.1) 12/22/18 08:40 Seg Neutrophils % 49.4 % (40.0-70.0) 12/22/18 08:40 Seg Neutrophils # 2.0 K/mm3 (1.8-7.7) 12/22/18 08:40 PT 12.7 Sec. (12.2-14.9) 12/21/18 09:38 INR 0.90 (0.87-1.13) 12/21/18 09:38 APTT 28.6 Sec. (24.2-36.6) 12/21/18 09:38 D-Dimer 178.98 ng/mlDDU (0-234) 12/21/18 09:38 Sodium 137 mmol/L (137-145) 12/21/18 09:04 Potassium 3.8 mmol/L (3.6-5.0) 12/21/18 09:04 Chloride 103.3 mmol/L (98-107) 12/21/18 09:04 Carbon Dioxide 23 mmol/L (22-30) 12/21/18 09:04 Anion Gap 15 mmol/L 12/21/18 09:04 BUN 12 mg/dL (9-20) 12/21/18 09:04 Creatinine 0.8 mg/dL (0.8-1.5) 12/21/18 09:04 Estimated GFR > 60 ml/min 12/21/18 09:04 BUN/Creatinine Ratio 15 % 12/21/18 09:04 Glucose 100 mg/dL (75-100) 12/21/18 09:04 Calcium 8.5 mg/dL (8.4-10.2) 12/21/18 09:04 Total Bilirubin 0.30 mg/dL (0.1-1.2) 12/21/18 09:04 Direct Bilirubin < 0.2 mg/dL (0-0.2) 12/21/18 09:04 Indirect Bilirubin 0.1 mg/dL 12/21/18 09:04 AST 14 units/L (5-40) 12/21/18 09:04 ALT 15 units/L (7-56) 12/21/18 09:04 Alkaline Phosphatase 78 units/L (35-129) 12/21/18 09:04 Total Creatine Kinase 62 units/L (55-170) 12/21/18 09:04 CK-MB (CK-2) 1.1 ng/mL (0.0-4.0) 12/21/18 09:04 CK-MB (CK-2) Rel Index 1.7 (0-4) 12/21/18 09:04 Troponin T < 0.010 ng/mL (0.00-0.029) 12/21/18 09:04 Total Protein 7.5 g/dL (6.3-8.2) 12/21/18 09:04 Albumin 3.7 g/dL (3.9-5) L 12/21/18 09:04 Albumin/Globulin Ratio 1.0 % 12/21/18 09:04 Valproic Acid < 2.8 ug/mL (50-100) L 12/21/18 09:38 Blood Type A POSITIVE 12/21/18 09:04 Antibody Screen Negative 12/21/18 09:04 Active Medications - Current Medications Current Medications: Generic Name Dose Route Start Last Admin Trade Name Freq PRN Reason Stop Dose Admin Acetaminophen 650 mg 12/21/18 13:18 Tylenol PO Q4H PRN Pain MILD(1-3)/Fever >100.5/GARCIA Acetaminophen/Codeine Phosphate 1 tab 12/21/18 13:20 Tylenol #3 PO Q6H PRN moderate to severe pain Albuterol 2.5 mg 12/21/18 13:18 Proventil IH Q4H PRN Shortness Of Breath Aripiprazole 50 mg 12/23/18 10:00 Abilify PO QDAY DEBRA Atorvastatin Calcium 40 mg 12/21/18 22:00 12/21/18 22:07 Lipitor PO 40 mg QHS DEBRA Administration Buspirone HCl 10 mg 12/22/18 10:00 Buspar PO DAILY DEBRA Divalproex Sodium 500 mg 12/23/18 10:[address] PO DAILY DEBRA Doxepin HCl 10 mg 12/21/18 22:00 12/21/18 22:07 Sinequan PO 10 mg QHS DEBRA Administration Dronabinol 10 mg 12/21/18 22:00 12/21/18 22:03 Marinol PO 10 mg BID DBERA Administration Furosemide 40 mg 12/22/18 10:00 12/22/18 10:55 Lasix PO 40 mg DAILY DEBRA Administration Sodium Chloride 1,000 mls @ 42 mls/hr 12/21/18 14:00 Nacl 0.45% 1000 Ml IV DIRECT DEBRA Levetiracetam 500 mg 12/22/18 22:00 Keppra PO BID DBERA Meclizine HCl 25 mg 12/21/18 13:42 12/22/18 11:09 Antivert PO 25 mg Q6HR DEBRA Administration Ondansetron HCl 4 mg 12/21/18 13:18 Zofran IV Q8H PRN Nausea And Vomiting Oxycodone HCl 20 mg 12/21/18 22:00 12/22/18 10:57 Oxycontin PO 20 mg Q12HR DEBRA Administration Oxycodone/Acetaminophen 1 tab 12/21/18 14:00 12/22/18 10:56 Percocet 5/325 PO 1 tab Q4HR DEBRA Administration Pantoprazole Sodium 40 mg 12/21/18 22:00 12/22/18 10:57 Protonix IV 40 mg BID DEBRA Administration Potassium Chloride 20 meq 12/22/18 10:00 12/22/18 10:58 K-Dur PO 20 meq QDAY DEBRA Administration Sodium Chloride 10 ml 12/21/18 22:00 12/22/18 11:10 Sodium Chloride Flush Syringe 10 Ml IV 10 ml BID DEBRA Administration Sodium Chloride 10 ml 12/21/18 13:18 Sodium Chloride Flush Syringe 10 Ml IV PRN PRN LINE FLUSH Tapentadol 75 mg 12/22/18 11:16 Nucynta PO BID DEBRA
[2018-12-22] MEDS: MARINOL PO SCH ×2 (14:23→21:34)
[2018-12-22] MEDS: BUSPAR PO SCH (14:23)
--- NOTE | 2018-12-22 16:03 | Gastroenterology Consultation ---
History of Present Illness - Reason for Consult Consult date: 12/22/18 Rectal Bleeding Requesting physician: LARISSA MACK - History of Present Illness The patient is a 53 yo male with multiple medical problems who was admitted after "passing out" several times at home. He says this is associated with rectal bleeding (hematochezia) that has been present every day for several months. He has no N/V/anorexia but does have diffuse abdominal pain. He denies prior colonoscopy to evaluate, but was admitted here about 1 month ago for presumed diverticulitis (v mass in the sigmoid) based on a CT scan. It is not clear if he was compliant with his PO abx on discharge (says he is out of several of his medications; he is actively requesting more pain meds). He has n o family hx of colon cancer, and has no emesis (witness eating regular diet today). He denies blood thinners. Past History Past Medical History: acute OR, CAD, diabetes, HIV/AIDS, hypertension, hyperlipidemia, seizures, other (Cerabral Palsy, Nicotine Dependence) Past Surgical History: CABG Social history: , smoking Family history: diabetes, hypertension Medications and Allergies Allergies Allergy/AdvReac Type Severity Reaction Status Date / Time metoclopramide [From Reglan] Allergy Anaphylaxis Verified 12/21/18 08:53 prochlorperazine Allergy Anaphylaxis Verified 12/21/18 08:53 [From Compazine] promethazine [From Phenergan] Allergy Anaphylaxis Verified 12/21/18 08:53 Home Medications Medication Instructions Recorded Confirmed Last Taken Type Doxycycline [Vibramycin CAP] 100 mg PO Q12HR #10 capsule 09/09/18 12/22/18 12/21/18 Rx Acetaminophen/Codeine [Tylenol 1 tab PO Q6H PRN #14 tab 09/17/18 12/22/18 09/19/18 Rx /Codeine # 3 tab] Ofloxacin 0.3% [Ocuflox] 1 - 2 drops OP TID #1 bottle 09/18/18 12/22/18 12/21/18 Rx Dronabinol [Marinol] 10 mg PO BID 09/20/18 12/22/18 12/21/18 History Tapentadol HCl [Nucynta] 75 mg PO BID 09/20/18 12/22/18 12/21/18 History ARIPiprazole [Abilify] 50 mg PO DAILY 09/21/18 12/22/18 12/21/18 History Clopidogrel Bisulfate [Plavix] 75 mg PO DAILY 09/21/18 12/22/18 12/21/18 History Doxepin [SINEquan] 10 mg PO QHS 09/21/18 12/22/18 12/21/18 History Furosemide [Lasix] 40 mg PO DAILY 09/21/18 12/22/18 12/21/18 History Potassium Chloride [K-Dur] 20 meq PO QDAY 09/21/18 12/22/18 12/21/18 History Rosuvastatin Calcium [Crestor] 40 mg PO DAILY 09/21/18 12/22/18 12/21/18 History busPIRone [Buspar] 10 mg PO DAILY 09/21/18 12/22/18 12/21/18 History Meclizine HCl [Meclizine CHEW] 25 mg PO Q6H #20 tab.chew 10/19/18 12/22/18 12/21/18 Rx oxyCODONE /ACETAMINOPHEN [Percocet 1 tab PO Q4HR #7 tab 10/19/18 12/22/18 12/21/18 Rx 5/325] Oxycodone HCl [Oxycontin] 20 mg PO Q12H 11/12/18 12/22/18 12/21/18 History Oxycodone HCl/Acetaminophen 1 each PO Q6HR PRN #20 tablet 11/12/18 12/22/18 12/21/18 Rx [Percocet 10/325 mg] levoFLOXacin [Levaquin] 750 mg PO QDAY #14 tablet 11/12/18 12/22/18 12/20/18 Rx metroNIDAZOLE [Flagyl] 500 mg PO Q8HR #21 tablet 11/12/18 12/22/18 12/21/18 Rx Dilantin (Nf) 300 mg PO DAILY 12/22/18 12/22/18 12/21/18 History levETIRAcetam [Keppra] 1 mg PO QDAY 12/22/18 12/22/18 1 Day Ago History ~12/21/18 Active Meds: Active Medications Acetaminophen (Tylenol) 650 mg PO Q4H PRN PRN Reason: Pain MILD(1-3)/Fever >100.5/GARCIA Acetaminophen/Codeine Phosphate (Tylenol #3) 1 tab PO Q6H PRN PRN Reason: moderate to severe pain Albuterol (Proventil) 2.5 mg IH Q4H PRN PRN Reason: Shortness Of Breath Atorvastatin Calcium (Lipitor) 40 mg PO QHS [facility] Last Admin: 12/21/18 22:07 Dose: 40 mg Documented by: Buspirone HCl (Buspar) 10 mg PO DAILY [facility] Last Admin: 12/22/18 14:23 Dose: 10 mg Documented by: Divalproex Sodium (Depakote Dr) 500 mg PO DAILY [facility] Doxepin HCl (Sinequan) 10 mg PO QHS [facility] Last Admin: 12/21/18 22:07 Dose: 10 mg Documented by: Dronabinol (Marinol) 10 mg PO BID [facility] Last Admin: 12/22/18 14:23 Dose: Not Given Documented by: Furosemide (Lasix) 40 mg PO DAILY [facility] Last Admin: 12/22/18 10:55 Dose: 40 mg Documented by: Sodium Chloride (Nacl 0.45% 1000 Ml) 1,000 mls @ 42 mls/hr IV DIRECT [facility] Levetiracetam (Keppra) 500 mg PO BID [facility] Meclizine HCl (Antivert) 25 mg PO Q6HR [facility] Last Admin: 12/22/18 11:09 Dose: 25 mg Documented by: Ondansetron HCl (Zofran) 4 mg IV Q8H PRN PRN Reason: Nausea And Vomiting Oxycodone HCl (Oxycontin) 20 mg PO Q12HR [facility] Last Admin: 12/22/18 10:57 Dose: 20 mg Documented by: Oxycodone/Acetaminophen (Percocet 5/325) 1 tab PO Q4HR [facility] Last Admin: 12/22/18 15:04 Dose: 1 tab Documented by: Pantoprazole Sodium (Protonix) 40 mg IV BID [facility] Last Admin: 12/22/18 10:57 Dose: 40 mg Documented by: Phenytoin (Dilantin) 100 mg PO Q8HR [facility] Potassium Chloride (K-Dur) 20 meq PO QDAY [facility] Last Admin: 12/22/18 10:58 Dose: 20 meq Documented by: Sodium Chloride (Sodium Chloride Flush Syringe 10 Ml) 10 ml IV BID [facility] Last Admin: 12/22/18 11:10 Dose: 10 ml Documented by: Sodium Chloride (Sodium Chloride Flush Syringe 10 Ml) 10 ml IV PRN PRN PRN Reason: LINE FLUSH Tapentadol (Nucynta) 75 mg PO BID [facility] Last Admin: 12/22/18 14:20 Dose: 75 mg Documented by: I HAVE REVIEWED AND RECONCILED MEDICATIONS Review of Systems - Review of Systems All systems: negative (as noted in the HPI) Exam - Constitutional Vital Signs: Temp Pulse Resp BP Pulse Ox 98.2 F 74 20 124/79 99 12/22/18 11:26 12/22/18 11:26 12/22/18 11:26 12/22/18 11:26 12/22/18 11:26 General appearance: no acute distress - EENT Eyes: PERRL, EOM intact ENT: hearing intact, clear oral mucosa, poor dentition - Neck Neck: supple, normal ROM - Respiratory Respiratory effort: normal Respiratory: bilateral: CTA - Cardiovascular Rhythm: regular Heart Sounds: Present: S1 & S2 - Gastrointestinal General gastrointestinal: Present: soft, non-tender, non-distended - Integumentary Integumentary: Present: clear, warm, dry - Neurologic Neurological: alert and oriented x3 - Labs CBC & Chem 7: 12/22/18 08:40 12/21/18 09:04 Lab Results: Laboratory Results - last 24 hr 12/22/18 08:40 WBC 4.1 L RBC 4.27 Hgb 13.4 Hct 38.9 MCV 91 MCH 31 MCHC 34 RDW 12.3 L Plt Count 171 Lymph % (Auto) 34.6 [place] % (Auto) 11.8 H Eos % (Auto) 3.3 Baso % (Auto) 0.9 Lymph # 1.4 [place] # 0.5 Eos # 0.1 Baso # 0.0 Seg Neutrophils % 49.4 Seg Neutrophils # 2.0 Assessment and Plan - Patient Problems (1) GI bleed Current Visit: Yes Status: Acute Qualifiers: GI bleed type/associated pathology: anorectal hemorrhage Qualified Code(s): K62.5 - Hemorrhage of anus and rectum Plan to address problem: - Given CT scan from 11/2018, will plan colonoscopy to further evaluate, zainab with rectal bleeding. - No fevers/elevated WBC to suggest active diverticular disease. - Patient does take chronic pain meds, and has a hx of seeking behaviour. No documentation of HIV status, so will draw a rapid HIV panel to ascertain.
[2018-12-22] MEDS: SINEquan PO SCH (21:24)
[2018-12-23] MEDS: PERCOCET 5/325 PO SCH ×6 (01:27→22:17)
[2018-12-23] MEDS: ANTIVERT PO SCH ×4 (01:28→18:37)
[2018-12-23] MEDS ORDERED: XANAX PO ONE (01:35)
[2018-12-23 06:28] LABS: Basophils % (Auto) 0.9 % (0.0-1.8); Eosinophils # (Auto) 0.1 K/mm3 (0.0-0.4); Eosinophils % (Auto) 3.2 % (0.0-4.3); Hematocrit 41.6 % (35.5-45.6); Hemoglobin 14.4 gm/dl (11.8-15.2); Lymphocytes # (Auto) 1.4 K/mm3 (1.2-5.4); Lymphocytes % (Auto) 36.5 % (13.4-35.0); Mean Corpuscular HGB Conc 35 % (32-34); Mean Corpuscular Volume 90 fl (84-94); Monocytes # (Auto) 0.5 K/mm3 (0.0-0.8); Monocytes % (Auto) 12.2 % (0.0-7.3); Platelet Count 189 K/mm3 (140-440); Red Blood Count 4.62 M/mm3 (3.65-5.03); Red Cell Distribution Width 12.2 % (13.2-15.2)
[2018-12-23] MEDS ORDERED: ABILIFY PO SCH (10:00)
[2018-12-23] MEDS: PROTONIX IV SCH (10:03)
[2018-12-23] MEDS: K-DUR PO SCH (10:04)
[2018-12-23] MEDS: BUSPAR PO SCH (10:04)
[2018-12-23] MEDS: LASIX PO SCH (10:04)
[2018-12-23] MEDS: OxyCONTIN PO SCH ×2 (10:05→22:18)
[2018-12-23] MEDS: SODIUM CHLORIDE FLUSH SYRINGE 10 ML IV SCH ×2 (10:06→22:19)
[2018-12-23] MEDS: NUCYNTA PO SCH ×2 (10:26→23:45)
[2018-12-23] MEDS: MARINOL PO SCH ×2 (10:26→23:45)
--- NOTE | 2018-12-23 13:37 | Gastroenterology Progress Note ---
Assessment and Plan 1.GI bleed/rectal bleeding -H/H WNL (14.4/41.6) -continue to monitor H/H and transfuse as needed -reports 1 episode of rectal bleeding overnight but none this am -currently HD stable -etiology unclear -given CT scan from 11/2018, will plan a colonoscopy tomorrow for further evaluation r/o neoplasm (no fever or elevated WBC to suggest active diverticular disease) -clear liquids today then NPO after MN -continue supportive care -will follow 2.DM 3.HTN 4.HIV -rapid HIV reactive -ID evaluation as outpatient 5.chronic pain syndrome -hx of seeking behavior -on chronic pain meds 6.hx of seizure disorder Subjective Date of service: 12/23/18 Principal diagnosis: rectal bleeding Interval history: No acute distress. Reports 1 episode of rectal bleeding overnight but no signs of bleeding this am. Has mild lower abdominal pain. No N/V. Objective - Constitutional Vitals: Temp Pulse Resp BP Pulse Ox 97.8 F 98 H 18 128/77 97 12/23/18 05:21 12/23/18 05:21 12/23/18 05:21 12/23/18 05:21 12/23/18 05:21 General appearance: no acute distress - Respiratory Respiratory: bilateral: CTA - Cardiovascular Rhythm: regular - Gastrointestinal General gastrointestinal: Present: soft, tender (slight diffuse lower abdominal TTP), non-distended, normal bowel sounds - Neurologic Neurological: alert and oriented x3 - Labs CBC & Chem 7: 12/23/18 06:00 12/21/18 09:04 Labs: Laboratory Results - last 24 hr 12/23/18 06:00 WBC 3.7 L RBC 4.62 Hgb 14.4 Hct 41.6 MCV 90 MCH 31 MCHC 35 H RDW 12.2 L Plt Count 189 Lymph % (Auto) 36.5 H [place] % (Auto) 12.2 H Eos % (Auto) 3.2 Baso % (Auto) 0.9 Lymph # 1.4 [place] # 0.5 Eos # 0.1 Baso # 0.0 Seg Neutrophils % 47.2 Seg Neutrophils # 1.8 HIV 1&2 Antibody Rapid Reactive HIV P24 Antigen React
[2018-12-23] MEDS ORDERED: GOLYTELY PO ONE (13:48)
--- NOTE | 2018-12-23 13:58 | Progress Note ---
Assessment and Plan Assessment and plan: --Generalized anxiety disorder patient is anxious walking in the hallways; Xanax when necessary, psych evaluation --Lower GI bleeding; GI evaluation and recommendations noted the patient No new episodes of bleeding, H&H stable, GI plans colonoscopy tomorrow --Type 2 diabetes mellitus; Accu-Chek sliding scale coverage and ADA diet Insulin as needed --Hypertension; well controlled Continue current antihypertensives and when necessary medications --History of HIV; not on antiretrovirals Patient with follow-up ID/health department upon discharge Consider ID evaluation if needed --Chronic pain syndrome; patient is on multiple pain medications Check with pharmacy, continue current management --History of seizure disorder; continue antiepileptic medications Seizure precautions --DVT prophylaxis; SCDs We'll closely monitor the patient and adjust management as needed Follow GI evaluation and recommendations Possible discharge in 1-2 days if stable Plan of care reviewed with the patient History Interval history: Patient seen and examined medical records reviewed No new episodes of rectal bleeding Hemodynamically stable H&H no change Patient is comfortable no new complaints Vital signs noted Hospitalist Physical - Constitutional Vitals: Temp Pulse Resp BP Pulse Ox 97.8 F 98 H 18 128/77 97 12/23/18 05:21 12/23/18 05:21 12/23/18 05:21 12/23/18 05:21 12/23/18 05:21 General appearance: Present: no acute distress, well-nourished - EENT Eyes: Present: PERRL, EOM intact - Neck Neck: Present: supple, normal ROM - Respiratory Respiratory effort: normal Respiratory: bilateral: diminished, negative: rales, rhonchi, wheezing - Cardiovascular Rhythm: regular Heart Sounds: Present: S1 & S2 - Extremities Extremities: no ischemia, No edema - Abdominal General gastrointestinal: soft, non-tender, non-distended, normal bowel sounds - Integumentary Integumentary: Present: clear, warm - Psychiatric Psychiatric: appropriate mood/affect, cooperative - Neurologic Neurologic: CNII-XII intact, moves all extremities Results - Labs CBC & Chem 7: 12/23/18 06:00 12/21/18 09:04 Labs: Laboratory Last Values WBC 3.7 K/mm3 (4.5-11.0) L 12/23/18 06:00 RBC 4.62 M/mm3 (3.65-5.03) 12/23/18 06:00 Hgb 14.4 gm/dl (11.8-15.2) 12/23/18 06:00 Hct 41.6 % (35.5-45.6) 12/23/18 06:00 MCV 90 fl (84-94) 12/23/18 06:00 MCH 31 pg (28-32) 12/23/18 06:00 MCHC 35 % (32-34) H 12/23/18 06:00 RDW 12.2 % (13.2-15.2) L 12/23/18 06:00 Plt Count 189 K/mm3 (140-440) 12/23/18 06:00 Lymph % (Auto) 36.5 % (13.4-35.0) H 12/23/18 06:00 [place] % (Auto) 12.2 % (0.0-7.3) H 12/23/18 06:00 Eos % (Auto) 3.2 % (0.0-4.3) 12/23/18 06:00 Baso % (Auto) 0.9 % (0.0-1.8) 12/23/18 06:00 Lymph # 1.4 K/mm3 (1.2-5.4) 12/23/18 06:00 [place] # 0.5 K/mm3 (0.0-0.8) 12/23/18 06:00 Eos # 0.1 K/mm3 (0.0-0.4) 12/23/18 06:00 Baso # 0.0 K/mm3 (0.0-0.1) 12/23/18 06:00 Seg Neutrophils % 47.2 % (40.0-70.0) 12/23/18 06:00 Seg Neutrophils # 1.8 K/mm3 (1.8-7.7) 12/23/18 06:00 PT 12.7 Sec. (12.2-14.9) 12/21/18 09:38 INR 0.90 (0.87-1.13) 12/21/18 09:38 APTT 28.6 Sec. (24.2-36.6) 12/21/18 09:38 D-Dimer 178.98 ng/mlDDU (0-234) 12/21/18 09:38 Sodium 137 mmol/L (137-145) 12/21/18 09:04 Potassium 3.8 mmol/L (3.6-5.0) 12/21/18 09:04 Chloride 103.3 mmol/L (98-107) 12/21/18 09:04 Carbon Dioxide 23 mmol/L (22-30) 12/21/18 09:04 Anion Gap 15 mmol/L 12/21/18 09:04 BUN 12 mg/dL (9-20) 12/21/18 09:04 Creatinine 0.8 mg/dL (0.8-1.5) 12/21/18 09:04 Estimated GFR > 60 ml/min 12/21/18 09:04 BUN/Creatinine Ratio 15 % 12/21/18 09:04 Glucose 100 mg/dL (75-100) 12/21/18 09:04 Calcium 8.5 mg/dL (8.4-10.2) 12/21/18 09:04 Total Bilirubin 0.30 mg/dL (0.1-1.2) 12/21/18 09:04 Direct Bilirubin < 0.2 mg/dL (0-0.2) 12/21/18 09:04 Indirect Bilirubin 0.1 mg/dL 12/21/18 09:04 AST 14 units/L (5-40) 12/21/18 09:04 ALT 15 units/L (7-56) 12/21/18 09:04 Alkaline Phosphatase 78 units/L (35-129) 12/21/18 09:04 Total Creatine Kinase 62 units/L (55-170) 12/21/18 09:04 CK-MB (CK-2) 1.1 ng/mL (0.0-4.0) 12/21/18 09:04 CK-MB (CK-2) Rel Index 1.7 (0-4) 12/21/18 09:04 Troponin T < 0.010 ng/mL (0.00-0.029) 12/21/18 09:04 Total Protein 7.5 g/dL (6.3-8.2) 12/21/18 09:04 Albumin 3.7 g/dL (3.9-5) L 12/21/18 09:04 Albumin/Globulin Ratio 1.0 % 12/21/18 09:04 Valproic Acid < 2.8 ug/mL (50-100) L 12/21/18 09:38 HIV 1&2 Antibody Rapid Reactive (Non React) 12/23/18 06:00 HIV P24 Antigen React (Non React) 12/23/18 06:00 Blood Type A POSITIVE 12/21/18 09:04 Antibody Screen Negative 12/21/18 09:04 Active Medications - Current Medications Current Medications: Generic Name Dose Route Start Last Admin Trade Name Freq PRN Reason Stop Dose Admin Acetaminophen 650 mg 12/21/18 13:18 Tylenol PO Q4H PRN Pain MILD(1-3)/Fever >100.5/GARCIA Acetaminophen/Codeine Phosphate 1 tab 12/21/18 13:20 Tylenol #3 PO Q6H PRN moderate to severe pain Albuterol 2.5 mg 12/21/18 13:18 Proventil IH Q4H PRN Shortness Of Breath Atorvastatin Calcium 40 mg 12/21/18 22:00 12/22/18 21:23 Lipitor PO 40 mg QHS DEBRA Administration Buspirone HCl 10 mg 12/22/18 10:00 12/23/18 10:04 Buspar PO 10 mg DAILY DEBRA Administration Divalproex Sodium 500 mg 12/23/18 10:[address] PO DAILY DEBRA Doxepin HCl 10 mg 12/21/18 22:00 12/22/18 21:24 Sinequan PO 10 mg QHS DEBRA Administration Dronabinol 10 mg 12/21/18 22:00 12/23/18 10:26 Marinol PO 10 mg BID DEBRA Administration Furosemide 40 mg 12/22/18 10:00 12/23/18 10:04 Lasix PO 40 mg DAILY DEBRA Administration Levetiracetam 500 mg 12/22/18 22:00 Keppra PO BID DEBRA Meclizine HCl 25 mg 12/21/18 13:42 12/23/18 12:52 Antivert PO 25 mg Q6HR DEBRA Administration Ondansetron HCl 4 mg 12/21/18 13:18 Zofran IV Q8H PRN Nausea And Vomiting Oxycodone HCl 20 mg 12/21/18 22:00 12/23/18 10:05 Oxycontin PO 20 mg Q12HR DEBRA Administration Oxycodone/Acetaminophen 1 tab 12/21/18 14:00 12/23/18 10:05 Percocet 5/325 PO 1 tab Q4HR DEBRA Administration Pantoprazole Sodium 40 mg 12/24/18 10:00 Protonix PO DAILY DEBRA Phenytoin 100 mg 12/22/18 22:00 Dilantin PO Q8HR DEBRA Polyethylene Glycol/Electrolytes 4,000 ml 12/23/18 13:48 Golytely PO 12/23/18 13:49 ONCE ONE Potassium Chloride 20 meq 12/22/18 10:00 12/23/18 10:04 K-Dur PO 20 meq QDAY DEBRA Administration Sodium Chloride 10 ml 12/21/18 22:00 12/23/18 10:06 Sodium Chloride Flush Syringe 10 Ml IV 10 ml BID DEBRA Administration Sodium Chloride 10 ml 12/21/18 13:18 Sodium Chloride Flush Syringe 10 Ml IV PRN PRN LINE FLUSH Tapentadol 75 mg 12/22/18 11:16 12/23/18 10:26 Nucynta PO 75 mg BID DEBRA Administration
[2018-12-23] MEDS: XANAX PO PRN (16:00)
[2018-12-23] MEDS: SINEquan PO SCH (22:19)
[2018-12-24] MEDS ORDERED: D50W (25GM) Syringe IV PRN (01:27)
[2018-12-24] MEDS: PERCOCET 5/325 PO SCH ×5 (02:25→21:14)
[2018-12-24] MEDS: ANTIVERT PO SCH ×3 (02:25→15:22)
[2018-12-24] MEDS ORDERED: MORPHINE IV PRN (08:04)
[2018-12-24] MEDS: HumuLIN R SUB-Q SCH ×3 (08:06→22:56)
[2018-12-24] MEDS: DILANTIN PO SCH ×4 (08:46→21:15)
[2018-12-24] MEDS: KEPPRA PO SCH ×5 (08:47→21:12)
[2018-12-24] MEDS ORDERED: D5NS 1,000 ML IV SCH (10:00)
[2018-12-24] MEDS: MARINOL PO SCH ×2 (12:09→22:29)
[2018-12-24] MEDS: NUCYNTA PO SCH ×2 (12:09→22:28)
--- NOTE | 2018-12-24 12:25 | Anesthesia Day of Surgery ---
Anesthesia Day of Surgery - Day of Surgery Patient Examined: Yes Patient H&P Reviewed: Yes Patient is NPO: Yes Beta Blockers: No
--- NOTE | 2018-12-24 12:28 | Anesthesia Consultation ---
Anesthesia Consult and Med Hx Date of service: 12/24/18 - Airway Anesthetic Teeth Evaluation: Poor (missing and broken ) ROM Head & Neck: Adequate Mental/Hyoid Distance: Adequate Mallampati Class: Class III Intubation Access Assessment: Good - Pulmonary Exam CTA: Yes - Cardiac Exam Cardiac Exam: No Murmur - Pre-Operative Health Status ASA Pre-Surgery Classification: ASA3 Proposed Anesthetic Plan: MAC - Pulmonary Hx Smoking: Yes Hx Asthma: Yes COPD: Yes Hx Pneumonia: Yes - Cardiovascular System Hx Hypertension: Yes Hx Coronary Artery Disease: Yes (CABG X 4 2017) Hx Heart Attack/AMI: Yes (2019) - Central Nervous System Hx Seizures: Yes CVA: Yes (6 months ago) Hx Psychiatric Problems: Yes - Other Systems Hx Cancer: No - Additional Comments Anesthesia Medical History Comments: ASA IV : History of HIV, Cerebral palsy, ID, BM, Seizres, COPD
[2018-12-24] MEDS ORDERED: NACL 0.9% 1000 ML 1,000 ML IV SCH (13:00)
[2018-12-24] MEDS ORDERED: XYLOCAINE 2% INFILTRATI ONE (13:03)
[2018-12-24] MEDS ORDERED: DIPRIVAN 10 MG/ML IV ONE (13:03)
[2018-12-24] MEDS ORDERED: WATER FOR IRRIG STERILE IR ONE (13:57)
[2018-12-24] MEDS ORDERED: VERSED ONE (14:02)
[2018-12-24] MEDS ORDERED: WATER FOR IRRIG STERILE ONE (14:18)
--- NOTE | 2018-12-24 14:21 | Post Operative Note ---
Pre-op diagnosis: Abnormal CT Post-op diagnosis: other (Poor prep, diverticulosis, hemorrhoids) Findings: 1. Incomplete colonoscopy to transverse (poor prep with solid stool in colon) 2. Diverticulosis 3. Int hemorrhoids, grade I Procedure: Incomplete colonoscopy (to transverse colon, 2nd poor prep) Anesthesia: MAC Surgeon: GEORGE BENDER Estimated blood loss: none Pathology: none Specimen disposition: other (N/A) Condition: stable Disposition: floor (Recs: 1. OK to d/c patient home since no obvious divert iculitis or mass. 2. Patient may f/u in the clinic for repeat colonoscopy with improved prep.)
[2018-12-24] MEDS ORDERED: NEO SYNEPHRINE/NS Syringe(OR USE) IV ONE (14:28)
[2018-12-24] MEDS: OxyCONTIN PO SCH ×2 (15:16→21:12)
[2018-12-24] MEDS: BUSPAR PO SCH (15:22)
[2018-12-24] MEDS: K-DUR PO SCH (15:22)
[2018-12-24] MEDS: PROTONIX PO SCH (15:22)
[2018-12-24] MEDS: LASIX PO SCH (15:22)
[2018-12-24] MEDS: SODIUM CHLORIDE FLUSH SYRINGE 10 ML IV SCH ×2 (15:23→21:14)
[2018-12-24] MEDS: XANAX PO PRN (15:28)
--- NOTE | 2018-12-24 17:45 | Progress Note ---
Assessment and Plan Assessment and plan: --Lower GI bleeding; GI evaluated patient Had a colonoscopy today --Generalized anxiety disorder patient is anxious walking in the hallways; Xanax when necessary, psych evaluation --Type 2 diabetes mellitus; Accu-Chek sliding scale coverage and ADA diet Insulin as needed --Hypertension; well controlled Continue current antihypertensives and when necessary medications --History of HIV; not on antiretrovirals Patient with follow-up ID/health department upon discharge Consider ID evaluation if needed --Chronic pain syndrome; patient is on multiple pain medications Check with pharmacy, continue current management --History of seizure disorder; continue antiepileptic medications Seizure precautions --DVT prophylaxis; SCDs We'll closely monitor the patient and adjust management as needed Follow GI evaluation and recommendations Possible discharge in 1-2 days if stable Plan of care reviewed with the patient History Interval history: Patient seen and examined medical records reviewed Patient had colonoscopy today GI cleared for discharge if stable Patient is anxious Hospitalist Physical - Constitutional Vitals: Temp Pulse Resp BP Pulse Ox 98.2 F 77 17 95/53 100 12/24/18 14:21 12/24/18 14:51 12/24/18 14:51 12/24/18 14:51 12/24/18 14:51 General appearance: Present: no acute distress, well-nourished - EENT Eyes: Present: PERRL, EOM intact - Neck Neck: Present: supple, normal ROM - Respiratory Respiratory: bilateral: diminished, negative: rales, rhonchi, wheezing - Cardiovascular Rhythm: regular Heart Sounds: Present: S1 & S2 - Extremities Extremities: no ischemia, pulses intact Extremity abnormal: edema, cyanosis - Abdominal General gastrointestinal: soft, non-tender, non-distended, normal bowel sounds - Integumentary Integumentary: Present: clear, warm - Psychiatric Psychiatric: appropriate mood/affect, cooperative - Neurologic Neurologic: CNII-XII intact, moves all extremities Results - Labs CBC & Chem 7: 12/23/18 06:00 12/21/18 09:04 Labs: Laboratory Last Values WBC 3.7 K/mm3 (4.5-11.0) L 12/23/18 06:00 RBC 4.62 M/mm3 (3.65-5.03) 12/23/18 06:00 Hgb 14.4 gm/dl (11.8-15.2) 12/23/18 06:00 Hct 41.6 % (35.5-45.6) 12/23/18 06:00 MCV 90 fl (84-94) 12/23/18 06:00 MCH 31 pg (28-32) 12/23/18 06:00 MCHC 35 % (32-34) H 12/23/18 06:00 RDW 12.2 % (13.2-15.2) L 12/23/18 06:00 Plt Count 189 K/mm3 (140-440) 12/23/18 06:00 Lymph % (Auto) 36.5 % (13.4-35.0) H 12/23/18 06:00 Major % (Auto) 12.2 % (0.0-7.3) H 12/23/18 06:00 Eos % (Auto) 3.2 % (0.0-4.3) 12/23/18 06:00 Baso % (Auto) 0.9 % (0.0-1.8) 12/23/18 06:00 Lymph # 1.4 K/mm3 (1.2-5.4) 12/23/18 06:00 Major # 0.5 K/mm3 (0.0-0.8) 12/23/18 06:00 Eos # 0.1 K/mm3 (0.0-0.4) 12/23/18 06:00 Baso # 0.0 K/mm3 (0.0-0.1) 12/23/18 06:00 Seg Neutrophils % 47.2 % (40.0-70.0) 12/23/18 06:00 Seg Neutrophils # 1.8 K/mm3 (1.8-7.7) 12/23/18 06:00 PT 12.7 Sec. (12.2-14.9) 12/21/18 09:38 INR 0.90 (0.87-1.13) 12/21/18 09:38 APTT 28.6 Sec. (24.2-36.6) 12/21/18 09:38 D-Dimer 178.98 ng/mlDDU (0-234) 12/21/18 09:38 Sodium 137 mmol/L (137-145) 12/21/18 09:04 Potassium 3.8 mmol/L (3.6-5.0) 12/21/18 09:04 Chloride 103.3 mmol/L (98-107) 12/21/18 09:04 Carbon Dioxide 23 mmol/L (22-30) 12/21/18 09:04 Anion Gap 15 mmol/L 12/21/18 09:04 BUN 12 mg/dL (9-20) 12/21/18 09:04 Creatinine 0.8 mg/dL (0.8-1.5) 12/21/18 09:04 Estimated GFR > 60 ml/min 12/21/18 09:04 BUN/Creatinine Ratio 15 % 12/21/18 09:04 Glucose 100 mg/dL (75-100) 12/21/18 09:04 POC Glucose 130 (70-105) H 12/24/18 16:42 Calcium 8.5 mg/dL (8.4-10.2) 12/21/18 09:04 Total Bilirubin 0.30 mg/dL (0.1-1.2) 12/21/18 09:04 Direct Bilirubin < 0.2 mg/dL (0-0.2) 12/21/18 09:04 Indirect Bilirubin 0.1 mg/dL 12/21/18 09:04 AST 14 units/L (5-40) 12/21/18 09:04 ALT 15 units/L (7-56) 12/21/18 09:04 Alkaline Phosphatase 78 units/L (35-129) 12/21/18 09:04 Total Creatine Kinase 62 units/L (55-170) 12/21/18 09:04 CK-MB (CK-2) 1.1 ng/mL (0.0-4.0) 12/21/18 09:04 CK-MB (CK-2) Rel Index 1.7 (0-4) 12/21/18 09:04 Troponin T < 0.010 ng/mL (0.00-0.029) 12/21/18 09:04 Total Protein 7.5 g/dL (6.3-8.2) 12/21/18 09:04 Albumin 3.7 g/dL (3.9-5) L 12/21/18 09:04 Albumin/Globulin Ratio 1.0 % 12/21/18 09:04 Valproic Acid < 2.8 ug/mL (50-100) L 12/21/18 09:38 HIV 1&2 Antibody Rapid Reactive (Non React) 12/23/18 06:00 HIV P24 Antigen React (Non React) 12/23/18 06:00 Blood Type A POSITIVE 12/21/18 09:04 Antibody Screen Negative 12/21/18 09:04 Active Medications - Current Medications Current Medications: Generic Name Dose Route Start Last Admin Trade Name Freq PRN Reason Stop Dose Admin Acetaminophen 650 mg 12/21/18 13:18 Tylenol PO Q4H PRN Pain MILD(1-3)/Fever >100.5/GARCIA Acetaminophen/Codeine Phosphate 1 tab 12/21/18 13:20 Tylenol #3 PO Q6H PRN moderate to severe pain Albuterol 2.5 mg 12/21/18 13:18 Proventil IH Q4H PRN Shortness Of Breath Alprazolam 0.25 mg 12/23/18 13:55 12/24/18 15:28 Xanax PO 0.25 mg Q12HR PRN Administration Anxiety Atorvastatin Calcium 40 mg 12/21/18 22:00 12/23/18 22:18 Lipitor PO 40 mg QHS DEBRA Administration Buspirone HCl 10 mg 12/22/18 10:00 12/24/18 15:22 Buspar PO 10 mg DAILY DEBRA Administration Dextrose 50 ml 12/24/18 01:27 D50w (25gm) Syringe IV PRN PRN Hypoglycemia Doxepin HCl 10 mg 12/21/18 22:00 12/23/18 22:19 Sinequan PO 10 mg QHS DEBRA Administration Dronabinol 10 mg 12/21/18 22:00 12/24/18 12:09 Marinol PO Not Given BID DEBRA Furosemide 40 mg 12/22/18 10:00 12/24/18 15:22 Lasix PO 40 mg DAILY DEBRA Administration Sodium Chloride 1,000 mls @ 50 mls/hr 12/24/18 13:00 12/24/18 12:32 Nacl 0.9% 1000 Ml IV 50 mls/hr DIRECT DEBRA Administration Insulin Human Regular 0 units 12/24/18 07:30 12/24/18 12:10 Humulin R SUB-Q Not Given ACHS DEBRA Protocol Levetiracetam 500 mg 12/22/18 22:00 12/24/18 15:22 Keppra PO 500 mg BID DEBRA Administration Meclizine HCl 25 mg 12/21/18 13:42 12/24/18 15:22 Antivert PO 25 mg Q6HR DEBRA Administration Morphine Sulfate 1 mg 12/24/18 08:04 12/24/18 08:41 Morphine IV 1 mg Q4H PRN Administration Pain, Moderate (4-6) Ondansetron HCl 4 mg 12/21/18 13:18 Zofran IV Q8H PRN Nausea And Vomiting Oxycodone HCl 20 mg 12/21/18 22:00 12/24/18 15:16 Oxycontin PO Not Given Q12HR DEBRA Oxycodone/Acetaminophen 1 tab 12/21/18 14:00 12/24/18 15:22 Percocet 5/325 PO 1 tab Q4HR DEBRA Administration Pantoprazole Sodium 40 mg 12/24/18 10:00 12/24/18 15:22 Protonix PO 40 mg DAILY DEBRA Administration Phenytoin 100 mg 12/22/18 22:00 12/24/18 15:22 Dilantin PO 100 mg Q8HR DEBRA Administration Potassium Chloride 20 meq 12/22/18 10:00 12/24/18 15:22 K-Dur PO 20 meq QDAY DEBRA Administration Sodium Chloride 10 ml 12/21/18 22:00 12/24/18 15:23 Sodium Chloride Flush Syringe 10 Ml IV 10 ml BID DEBRA Administration Sodium Chloride 10 ml 12/21/18 13:18 Sodium Chloride Flush Syringe 10 Ml IV PRN PRN LINE FLUSH Tapentadol 75 mg 12/22/18 11:16 12/24/18 12:09 Nucynta PO Not Given BID [facility] Nutrition/Malnutrition Assess - Dietary Evaluation Nutrition/Malnutrition Findings: Nutrition Notes Start: 12/23/18 15:31 Freq: Status: Active Protocol: Document 12/24/18 15:21 TW (Rec: 12/24/18 15:39 TW [id number]) Co-Sign 12/24/18 15:21 NHALL Nutrition Notes Need for Assessment generated from: MD Order Initial or Follow up Brief Note Current Diagnosis Coronary Artery Disease, Hypertension,Stroke Other Pertinent Diagnosis HIV; DEPRESSION; chronic pain syndrome Current Diet consistent CHO Subjective/Other Information MD consult for malnutrition. Pt not in room at time of visit. Noted lunch tray at bedside and diet advanced to CHO consistent. Burn Absent Trauma Absent #1 Nutrition Diagnosis Inadequate oral intake Diagnosis Progress(for reassessment Continues documentation) Is patient on ventilator? No Is Patient Ambulatory and/or Out of Bed Yes REE-([place]-ambulatory/OOB) [ 0 NUTR.MSJOOB] Kcal/Kg value to use for calculation 30 Calculation Used for Recommendations Kcal/kg Additional Notes FLUID: 1 ml/kcal PRO: 1-1.3 G/KG 80-104 G/DAY Nutrition Intervention Change Diet Order: Continue current Goal #1 Meet at least 75% kcal and pro needs by PO/ONS intake Anticipated Discharge Needs: To be determined Follow-Up By: 12/26/18 Additional Comments F/U for PO/ONS intakes
--- NOTE | 2018-12-24 20:17 | Operative Report ---
PROCEDURE PERFORMED: Incomplete colonoscopy to the transverse colon, incomplete secondary to poor preparation. PREOPERATIVE DIAGNOSIS: Abnormal CT scan with possible lesion in the sigmoid colon. POSTOPERATIVE DIAGNOSES: Poor preparation, diverticulosis, hemorrhoids. ENDOSCOPIST: Sd Tom MD INSTRUMENT: [employer]vision [employer] video endoscope. MEDICATIONS: MAC anesthesia by Anesthesia Services. COMPLICATIONS: No apparent complications. ESTIMATED BLOOD LOSS: Minimal. SPECIMENS: None. IMPLANTS: None. ASSISTANTS: None. CONDITION AT COMPLETION: Stable. TECHNIQUE: The patient was informed of the risks and benefits of the procedure. He signed the informed consent to proceed. He was placed in the left lateral decubitus position. The above sedative medications were given. His vital signs remained stable throughout the procedure. The instrument was advanced from the anus to the mid transverse colon under direct visualization. At that point, the bowel was insufflated and the endoscope was slowly withdrawn. The transverse colon was identified by landmarks as well as palpation and transillumination. The quality of the preparation was poor. FINDINGS: 1. Solid stool extending from the rectosigmoid to the transverse colon, there was solid and unable to be lavaged. 2. Sigmoid diverticulosis. 3. Internal hemorrhoids, grade 1. 4. No evidence of significant diverticulitis or mass lesion in the sigmoid colon. RECOMMENDATIONS: 1. Okay to discharge the patient home since no obvious mass or diverticulosis. 2. The patient may follow up in the colon for repeat screening colonoscopy with improved preparation. 3. We will sign off. Please call if needed. JOB# [id number] RIMA/NTS
[2018-12-24] MEDS: SINEquan PO SCH (21:15)
[2018-12-24] MEDS ORDERED: XANAX PO ONE (23:33)
[2018-12-25] MEDS: PERCOCET 5/325 PO SCH ×5 (03:34→13:44)
[2018-12-25] MEDS: XANAX PO PRN (03:34)
[2018-12-25] MEDS: ANTIVERT PO SCH ×3 (04:59→11:32)
[2018-12-25] MEDS: DILANTIN PO SCH ×2 (06:48→13:55)
[2018-12-25] MEDS: HumuLIN R SUB-Q SCH ×2 (11:27→11:33)
[2018-12-25] MEDS: K-DUR PO SCH (11:28)
[2018-12-25] MEDS: MARINOL PO SCH (11:28)
[2018-12-25] MEDS: KEPPRA PO SCH (11:28)
[2018-12-25] MEDS: LASIX PO SCH (11:29)
[2018-12-25] MEDS: BUSPAR PO SCH (11:29)
[2018-12-25] MEDS: PROTONIX PO SCH (11:29)
[2018-12-25] MEDS: OxyCONTIN PO SCH (11:29)
[2018-12-25 12:26] VITALS: BP 87/43
--- NOTE | 2018-12-25 13:09 | Discharge Summary ---
Providers - Providers Date of Admission: 12/21/18 13:18 Date of discharge: 12/25/18 Attending physician: LARISSA MACK 12/21/18 13:18 Consult to Physician [CONS] Routine Comment: A/S NOTIFIED WESLEY Consulting Provider: ADRIEL FLORES Physician Instructions: Reason For Exam: rectal bleeding 12/23/18 13:52 psychiatry consult [Consult to Mental Health] [CONS] Routine Reason For Exam: gen anxiety ,psychotic at times Place consult to:: mission worker/ Notified:: Phone number called:: [phone] Was contact made?: Yes If yes, spoke with:: cherie Time called:: 14:56 12/24/18 01:27 Consult to Dietitian/Nutrition [CONS] Routine Physician Instructions: Reason For Exam: Reason for Consult: Malnutrition Primary care physician: KEV MILIAN Hospitalization Reason for admission: rectal bleeding Condition: Stable Procedures: Colonoscopy; 1. Incomplete colonoscopy to transverse (poor prep with solid stool in colon) 2. Diverticulosis 3. Int hemorrhoids, grade I Cleared for discharge follow-up in the office Hospital course: --Lower GI bleeding; resolved .GI evaluated patient s/p colonoscopy 1. Incomplete colonoscopy to transverse (poor prep with solid stool in colon) 2. Diverticulosis 3. Int hemorrhoids, grade I Cleared by GI for discharge follow-up in the office --Generalized anxiety disorder patient is anxious walking in the hallways; Xanax when necessary, psych evaluation --Type 2 diabetes mellitus; Accu-Chek sliding scale coverage and ADA diet Insulin as needed --Hypertension; well controlled Continue current antihypertensives and when necessary medications --History of HIV; not on antiretrovirals Patient with follow-up ID/health department upon discharge Consider ID evaluation if needed --Chronic pain syndrome; patient is on multiple pain medications Check with pharmacy, continue current management --History of seizure disorder; continue antiepileptic medications Seizure precautions --DVT prophylaxis; SCDs Medical stable for discharge Disposition: DC-01 TO HOME OR SELFCARE Time spent for discharge: 32min Core Measure Documentation - Palliative Care Palliative Care/ Comfort Measures: Not Applicable - Core Measures Any of the following diagnoses?: none Exam - Constitutional Vitals: Temp Pulse Resp BP Pulse Ox 97.2 F L 69 16 87/43 94 12/25/18 12:23 12/25/18 12:23 12/25/18 12:23 12/25/18 12:23 12/25/18 12:23 General appearance: Present: no acute distress, well-nourished - EENT Eyes: Present: PERRL, EOM intact - Neck Neck: Present: supple, normal ROM - Respiratory Respiratory effort: normal Respiratory: bilateral: diminished, negative: rales, rhonchi, wheezing - Cardiovascular Rhythm: regular Heart Sounds: Present: S1 & S2 - Extremities Extremities: no ischemia, No edema - Abdominal General gastrointestinal: Present: soft, non-tender, non-distended, normal bowel sounds - Integumentary Integumentary: Present: clear, warm - Musculoskeletal Musculoskeletal: strength equal bilaterally - Psychiatric Psychiatric: appropriate mood/affect, cooperative - Neurologic Neurologic: moves all extremities Plan Activity: advance as tolerated, fall precautions, other (seizure precautions) Additional Instructions: Advised to follow Infectious diseases/Health Department as scheduled. you are on many home medications, advised to check with primary care physician PMD before resuming them. Primary care physician to review the home med list and advise the patient Follow up with: ELIZABETH PICKERING MD [Referring] - 3-5 Days GEORGE BENDER MD [Staff Physician] - 7 Days Forms: Accompanied Note Prescriptions: Pantoprazole [Protonix TAB] 40 mg PO DAILY #30 tablet
[2018-12-25] MEDS: SODIUM CHLORIDE FLUSH SYRINGE 10 ML IV SCH (13:36)
[2018-12-25] MEDS: NUCYNTA PO SCH (13:55)
--- NOTE | 2018-12-25 14:04 | Consultation ---
History of Present Illness - Reason for Consult Consult date: 12/25/18 Reason for consult: Initial Psychiatric Evaluation - History of Present Psychiatric Illness Psychiatry was consulted for anxiety and intermittent psychosis. Current Psychiatric Medications: Past Psychiatric History: Past Medication Trials: History of Alcohol/Substance Abuse: History of Abuse/Trauma: Social History: Family History of Psychiatric Illness/ Substance Abuse: Mental Status Exam: Appearance: in hospital attire Behavior: regular eye contact Speech: regular rate and tone Mood: Affect: congruent to mood Thought Process: circumstantial Thought Content: denies SI/HI's with VH's Motor Activity: ambulatory Cognition: A/Ox 3 Insight: vague Judgment: poor Assessment and plan: Impression: Today the patient is during the assessment. DDx: Recommendation/Plan: Attempt to reassess the patient in 24 hours. Disposition: The patient was referred to inpatient psy services. Will staff with Dr. Hiren Bedoya. Medications and Allergies Allergies Allergy/AdvReac Type Severity Reaction Status Date / Time metoclopramide [From Reglan] Allergy Anaphylaxis Verified 12/21/18 08:53 prochlorperazine Allergy Anaphylaxis Verified 12/21/18 08:53 [From Compazine] promethazine [From Phenergan] Allergy Anaphylaxis Verified 12/21/18 08:53 Home Medications Medication Instructions Recorded Confirmed Last Taken Type Acetaminophen/Codeine [Tylenol 1 tab PO Q6H PRN #14 tab 09/17/18 12/22/18 09/19/18 Rx /Codeine # 3 tab] ARIPiprazole [Abilify] 50 mg PO DAILY 09/21/18 12/22/18 12/21/18 History Clopidogrel Bisulfate [Plavix] 75 mg PO DAILY 09/21/18 12/22/18 12/21/18 History Furosemide [Lasix] 40 mg PO DAILY 09/21/18 12/22/18 12/21/18 History Rosuvastatin Calcium [Crestor] 40 mg PO DAILY 09/21/18 12/22/18 12/21/18 History busPIRone [Buspar] 10 mg PO DAILY 09/21/18 12/22/18 12/21/18 History Meclizine HCl [Meclizine CHEW] 25 mg PO Q6H #20 tab.chew 10/19/18 12/22/18 12/21/18 Rx oxyCODONE /ACETAMINOPHEN [Percocet 1 tab PO Q4HR #7 tab 10/19/18 12/22/18 12/21/18 Rx 5/325 mg] Dilantin (Nf) 300 mg PO DAILY 12/22/18 12/22/18 12/21/18 History levETIRAcetam [Keppra] 1 mg PO QDAY 12/22/18 12/22/18 1 Day Ago History ~12/21/18 Abacavir 1 tab PO DAILY 12/23/18 12/23/18 Unknown History Aspirin 81 mg PO DAILY 12/23/18 12/23/18 Unknown History Colace CAP 1 cap PO Q12HR 12/23/18 12/23/18 Unknown History Divalproex Sodium 1,000 mg PO BID 12/23/18 12/23/18 Unknown History Doxepin [SINEquan] 10 mg PO QHS capsule 12/25/18 Unknown Rx Pantoprazole [Protonix TAB] 40 mg PO DAILY #30 tablet 12/25/18 Unknown Rx Active Meds: Active Medications Acetaminophen (Tylenol) 650 mg PO Q4H PRN PRN Reason: Pain MILD(1-3)/Fever >100.5/GARCIA Acetaminophen/Codeine Phosphate (Tylenol #3) 1 tab PO Q6H PRN PRN Reason: moderate to severe pain Albuterol (Proventil) 2.5 mg IH Q4H PRN PRN Reason: Shortness Of Breath Alprazolam (Xanax) 0.25 mg PO Q12HR PRN PRN Reason: Anxiety Last Admin: 12/25/18 03:34 Dose: 0.25 mg Documented by: Atorvastatin Calcium (Lipitor) 40 mg PO QHS [facility] Last Admin: 12/24/18 21:15 Dose: 40 mg Documented by: Buspirone HCl (Buspar) 10 mg PO DAILY [facility] Last Admin: 12/25/18 11:29 Dose: 10 mg Documented by: Dextrose (D50w (25gm) Syringe) 50 ml IV PRN PRN PRN Reason: Hypoglycemia Doxepin HCl (Sinequan) 10 mg PO QHS [facility] Last Admin: 12/24/18 21:15 Dose: 10 mg Documented by: Dronabinol (Marinol) 10 mg PO BID [facility] Last Admin: 12/25/18 11:28 Dose: 10 mg Documented by: Furosemide (Lasix) 40 mg PO DAILY [facility] Last Admin: 12/25/18 11:29 Dose: 40 mg Documented by: Sodium Chloride (Nacl 0.9% 1000 Ml) 1,000 mls @ 50 mls/hr IV DIRECT [facility] Last Admin: 12/24/18 12:32 Dose: 50 mls/hr Documented by: Insulin Human Regular (Humulin R) 0 units SUB-Q ACHS [facility]; Protocol Last Admin: 12/25/18 11:33 Dose: Not Given Documented by: Levetiracetam (Keppra) 500 mg PO BID [facility] Last Admin: 12/25/18 11:28 Dose: 500 mg Documented by: Meclizine HCl (Antivert) 25 mg PO Q6HR [facility] Last Admin: 12/25/18 11:32 Dose: 25 mg Documented by: Morphine Sulfate (Morphine) 1 mg IV Q4H PRN PRN Reason: Pain, Moderate (4-6) Last Admin: 12/24/18 08:41 Dose: 1 mg Documented by: Ondansetron HCl (Zofran) 4 mg IV Q8H PRN PRN Reason: Nausea And Vomiting Oxycodone HCl (Oxycontin) 20 mg PO Q12HR [facility] Last Admin: 12/25/18 11:29 Dose: 20 mg Documented by: Oxycodone/Acetaminophen (Percocet 5/325) 1 tab PO Q4HR [facility] Last Admin: 12/25/18 13:44 Dose: Not Given Documented by: Pantoprazole Sodium (Protonix) 40 mg PO DAILY [facility] Last Admin: 12/25/18 11:29 Dose: 40 mg Documented by: Phenytoin (Dilantin) 100 mg PO Q8HR [facility] Last Admin: 12/25/18 13:55 Dose: 100 mg Documented by: Potassium Chloride (K-Dur) 20 meq PO QDAY [facility] Last Admin: 12/25/18 11:28 Dose: 20 meq Documented by: Sodium Chloride (Sodium Chloride Flush Syringe 10 Ml) 10 ml IV BID [facility] Last Admin: 12/25/18 13:36 Dose: Not Given Documented by: Sodium Chloride (Sodium Chloride Flush Syringe 10 Ml) 10 ml IV PRN PRN PRN Reason: LINE FLUSH Tapentadol (Nucynta) 75 mg PO BID [facility] Last Admin: 12/25/18 13:55 Dose: 75 mg Documented by: Mental Status Exam - Vital signs Last Vital Signs Temp 97.2 F L 12/25/18 12:23 Pulse 69 12/25/18 12:23 Resp 16 12/25/18 12:23 BP 87/43 12/25/18 12:23 Pulse Ox 94 12/25/18 12:23 Results Result Diagrams: 12/23/18 06:00 12/21/18 09:04 Abnormal lab results 12/24/18 12/24/18 12/24/18 Range/Units 14:16 14:30 16:42 POC Glucose 68 L 134 H 130 H (70-105) All other labs normal.
[2019-01-02 08:33] LABS: HIV-1 Antibody Differentiation SEE SCANNED RESULTS; HIV-2 Antibody Differentiation SEE SCANNED RESULTS
== END 2018-12-25 16:30 | disposition home or self-care (01) | DRG 378 ==
LOC: ED 08:52 → 3A 13:18
PROVIDERS: ADMIT Internal Medicine; ATTEND Internal Medicine
PROC: 0DJD8ZZ Inspection of Lower Intestinal Tract, Via Natural or Artificial Opening Endoscopic (ICD-10-PCS; principal; 2018-12-24)
DX: K57.31 Diverticulosis of large intestine without perforation or abscess with bleeding (principal); I69.354 Hemiplegia and hemiparesis following cerebral infarction affecting left non-dominant side; I42.8 Other cardiomyopathies; K64.8 Other hemorrhoids; R55 Syncope and collapse; M32.9 Systemic lupus erythematosus, unspecified; I25.2 Old myocardial infarction; I11.0 Hypertensive heart disease with heart failure; I50.9 Heart failure, unspecified; E11.9 Type 2 diabetes mellitus without complications; F32.9 Major depressive disorder, single episode, unspecified; F43.10 Post-traumatic stress disorder, unspecified; J44.9 Chronic obstructive pulmonary disease, unspecified; F17.210 Nicotine dependence, cigarettes, uncomplicated; G80.9 Cerebral palsy, unspecified; I25.10 Atherosclerotic heart disease of native coronary artery without angina pectoris; G89.4 Chronic pain syndrome; G40.909 Epilepsy, unspecified, not intractable, without status epilepticus; F41.1 Generalized anxiety disorder; Z95.1 Presence of aortocoronary bypass graft; Z88.8 Allergy status to other drugs, medicaments and biological substances; Z21 Asymptomatic human immunodeficiency virus [HIV] infection status
CPT/HCPCS: 36415; 70450; 80048; 80076; 80164; 82270; 82550; 82553; 82962; 84484; 85025; 85379; 85610; 85730; 86689; 86850; 86900; 86901; 87116; 87806; 93005; 93010; 99406; G0378; A9270-GY; C9113; J2250; J2270; J2370; J2405; J2704; J3010; J7030; J7042; Q0167

== ENCOUNTER 2018-12-26 00:21 | Emergency (ER) | payer MEDICARE ==
[2018-12-26 01:24] LABS: Bilirubin,Urine NEG (Negative); Blood,Urine NEG (Negative); Color,Urine Yellow (Yellow); Protein,Urine <15 mg/dL mg/dL (Negative)
[2018-12-26 01:30] LABS: Amphetamine Screen,Urine PRESUMPTIVE NEGATIVE; Benzodiazepines Screen,Urine PRESUMPTIVE NEGATIVE; Cocaine Screen,Urine PRESUMPTIVE NEGATIVE; Methadone Screen,Urine PRESUMPTIVE NEGATIVE; Opiate Screen,Urine PRESUMPTIVE NEGATIVE; WBC,Urine < 1.0 /HPF (0.0-6.0)
[2018-12-26] MEDS ORDERED: ATIVAN IM PRN (02:15)
[2018-12-26] MEDS ORDERED: HALDOL IM PRN (02:15)
--- NOTE | 2018-12-26 02:17 | Emergency Department Report ---
<DUSTIN GOMEZ - Last Filed: 12/26/18 05:48> ED General Adult HPI - General Chief complaint: Psych Stated complaint: ROSIE MARCOS Time Seen by Provider: 12/26/18 02:10 Source: patient, RN notes reviewed, old records reviewed Mode of arrival: Ambulatory Limitations: No Limitations - History of Present Illness Initial comments: This is a 53-year-old gentleman. I am quite familiar with this patient, and I have evaluated him multiple times in the past. Please see my multiple ER evaluations for the details of his past medical history, or see his recent discharge summary from yesterday. Today, the patient presents to the emergency room with the complaint of painless depression. He endorses suicidality. He is vague about having access to guns or firearms. He states that he feels like he might jump into traffic just end i t all. He is elusive about having hallucinations. Apparently symptoms were constant, and they are worsening with numerous psychosocial stressors. -: Gradual Severity scale (0 -10): 10 Consistency: constant Improves with: none Worsens with: other (psychosocial stressors) - Related Data Home Medications Medication Instructions Recorded Confirmed Last Taken ARIPiprazole [Abilify] 50 mg PO DAILY 09/21/18 12/26/18 12/21/18 Clopidogrel Bisulfate [Plavix] 75 mg PO DAILY 09/21/18 12/26/18 12/21/18 Furosemide [Lasix] 40 mg PO DAILY 09/21/18 12/26/18 12/21/18 Rosuvastatin Calcium [Crestor] 40 mg PO DAILY 09/21/18 12/26/18 12/21/18 busPIRone [Buspar] 10 mg PO DAILY 09/21/18 12/26/18 12/21/18 Dilantin (Nf) 300 mg PO DAILY 12/22/18 12/26/18 12/21/18 levETIRAcetam [Keppra] 1 mg PO QDAY 12/22/18 12/26/18 1 Day Ago ~12/21/18 Abacavir 1 tab PO DAILY 12/23/18 12/26/18 Unknown Aspirin 81 mg PO DAILY 12/23/18 12/26/18 Unknown Colace CAP 1 cap PO Q12HR 12/23/18 12/26/18 Unknown Divalproex Sodium 1,000 mg PO BID 12/23/18 12/26/18 Unknown Previous Rx's Medication Instructions Recorded Last Taken Type Acetaminophen/Codeine [Tylenol 1 tab PO Q6H PRN #14 tab 09/17/18 09/19/18 Rx /Codeine # 3 tab] Meclizine HCl [Meclizine CHEW] 25 mg PO Q6H #20 tab.chew 10/19/18 12/21/18 Rx oxyCODONE /ACETAMINOPHEN [Percocet 1 tab PO Q4HR #7 tab 10/19/18 12/21/18 Rx 5/325 mg] Doxepin [SINEquan] 10 mg PO QHS capsule 12/25/18 Unknown Rx Pantoprazole [Protonix TAB] 40 mg PO DAILY #30 tablet 12/25/18 Unknown Rx Mirtazapine [Remeron] 15 mg PO HS #30 tablet 12/27/18 Unknown Rx Allergies Allergy/AdvReac Type Severity Reaction Status Date / Time metoclopramide [From Reglan] Allergy Anaphylaxis Verified 12/21/18 08:53 prochlorperazine Allergy Anaphylaxis Verified 12/21/18 08:53 [From Compazine] promethazine [From Phenergan] Allergy Anaphylaxis Verified 12/21/18 08:53 ED Review of Systems Constitutional: denies: fever, malaise Eyes: denies: vision change ENT: denies: epistaxis Respiratory: denies: cough Cardiovascular: denies: chest pain Gastrointestinal: denies: abdominal pain Genitourinary: denies: dysuria Musculoskeletal: denies: back pain Skin: denies: lesions Neurological: weakness Psychiatric: anxiety, depression, suicidal thoughts ED Past Medical Hx - Past Medical History Previous Medical History?: Yes Hx Hypertension: Yes Hx CVA: Yes (left sided weakness) Hx Heart Attack/AMI: Yes (2018) Hx Congestive Heart Failure: Yes Hx Diabetes: Yes Hx Seizures: Yes Hx Psychiatric Treatment: Yes (PTSD,depression) Hx Asthma: Yes Hx COPD: Yes Hx HIV: Yes Additional medical history: Cerebral palsy - Surgical History Past Surgical History?: Yes Additional Surgical History: CABG - Social History Smoking Status: Current Every Day Smoker Substance Use Type: None - Medications Home Medications: Home Medications Medication Instructions Recorded Confirmed Last Taken Type Acetaminophen/Codeine [Tylenol 1 tab PO Q6H PRN #14 tab 09/17/18 12/26/18 09/19/18 Rx /Codeine # 3 tab] ARIPiprazole [Abilify] 50 mg PO DAILY 09/21/18 12/26/18 12/21/18 History Clopidogrel Bisulfate [Plavix] 75 mg PO DAILY 09/21/18 12/26/18 12/21/18 History Furosemide [Lasix] 40 mg PO DAILY 09/21/18 12/26/18 12/21/18 History Rosuvastatin Calcium [Crestor] 40 mg PO DAILY 09/21/18 12/26/18 12/21/18 History busPIRone [Buspar] 10 mg PO DAILY 09/21/18 12/26/18 12/21/18 History Meclizine HCl [Meclizine CHEW] 25 mg PO Q6H #20 tab.chew 10/19/18 12/26/18 12/21/18 Rx oxyCODONE /ACETAMINOPHEN [Percocet 1 tab PO Q4HR #7 tab 10/19/18 12/26/18 12/21/18 Rx 5/325 mg] Dilantin (Nf) 300 mg PO DAILY 12/22/18 12/26/18 12/21/18 History levETIRAcetam [Keppra] 1 mg PO QDAY 12/22/18 12/26/18 1 Day Ago History ~12/21/18 Abacavir 1 tab PO DAILY 12/23/18 12/26/18 Unknown History Aspirin 81 mg PO DAILY 12/23/18 12/26/18 Unknown History Colace CAP 1 cap PO Q12HR 12/23/18 12/26/18 Unknown History Divalproex Sodium 1,000 mg PO BID 12/23/18 12/26/18 Unknown History Doxepin [SINEquan] 10 mg PO QHS capsule 12/25/18 12/26/18 Unknown Rx Pantoprazole [Protonix TAB] 40 mg PO DAILY #30 tablet 12/25/18 12/26/18 Unknown Rx Mirtazapine [Remeron] 15 mg PO HS #30 tablet 12/27/18 Unknown Rx ED Physical Exam - General Limitations: No Limitations General appearance: alert, in no apparent distress - Head Head exam: Present: atraumatic, normocephalic - Eye Eye exam: Present: normal appearance, EOMI. Absent: nystagmus - ENT ENT exam: Present: normal exam, normal orophraynx, mucous membranes moist, normal external ear exam, other (patient has poor dentition) - Neck Neck exam: Present: normal inspection, full ROM. Absent: tenderness, meningismus - Respiratory Respiratory exam: Present: normal lung sounds bilaterally. Absent: respiratory distress - Cardiovascular Cardiovascular Exam: Present: regular rate, normal rhythm, normal heart sounds. Absent: bradycardia, tachycardia, irregular rhythm, systolic murmur, diastolic murmur, rubs, gallop - GI/Abdominal GI/Abdominal exam: Present: soft. Absent: distended, tenderness, guarding, rebound, rigid, pulsatile mass - Rectal Rectal exam: Present: deferred - Extremities Exam Extremities exam: Present: normal inspection, full ROM, other (2+ pulses noted in the bilateral upper, lower extremities. Compartments soft. No long bony tenderness. The pelvis is stable.). Absent: pedal edema, joint swelling, calf tenderness - Back Exam Back exam: Present: normal inspection, full ROM. Absent: tenderness, CVA tenderness (R), paraspinal tenderness, vertebral tenderness - Neurological Exam Neurological exam: Present: alert, normal gait, other (Extraocular movements intact. Tongue midline. No facial droop. Facial sensation intact to light touch in the V1, V2, V3 distribution bilaterally. 5 and 5 strength in 4 extremities.. Sensation is intact to light touch in 4 extremities.). Absent: motor sensory deficit - Psychiatric Psychiatric exam: Present: suicidal ideation, other (patient is pleasant, cooperative, engaging and quite friendly. He complements this authorized haircut on multiple instances during the history and physical. He makes good eye contact, he is not withdrawn, and he is not sullen) - Skin Skin exam: Present: warm, dry, intact, normal color. Absent: rash ED Course - Reevaluation(s) Reevaluation #1: 12/26/18 02:47 Differential diagnosis, including not limited to: Depression, mood disorder, dysthymia, malingering Assessment and plan: 53-year-old gentleman who states that he is depressed and suicidal. However, he smiles, he is pleasant, he is calm, he is cooperative, he is engaging, and he is complementary to myself and other staff members. Geoff small discharged from the hospital yesterday. He is afebrile, with reassuring vital signs and benign, unremarkable physical examination. He is placed on a 1013 for his complaint of suicidality, and desired to walk, run into traffic. I suspect that the patient is motivated by secondary gain. We will obtain appropriate screening laboratory studies, psychiatric consultation, and contact the psychiatric team once medically suitable for placement. Reevaluation #2: 12/26/18 05:24 Laboratory studies so far unremarkable, only laboratory study pending at this time his phenytoin level. Assuming phenytoin level not toxic or supratherapeutic, we would consider the patient medically stable for psychiatric placement. Reevaluation #3: 12/26/18 05:48 Laboratory studies unremarkable. At this point in time, does not appear to be in immediate medical contraindication to psychiatric admission, evaluation, placement. Crisis team is paged. ED Medical Decision Making - Lab Data Result diagrams: 12/26/18 03:59 12/26/18 03:59 Vital Signs 12/26/18 00:44 Temperature 98.2 F Pulse Rate 91 H Respiratory 20 Rate Blood Pressure 103/79 O2 Sat by Pulse 99 Oximetry Vital Signs 12/26/18 12/26/18 00:44 04:42 Temperature 98.2 F 98.4 F Pulse Rate 91 H 88 Respiratory 20 18 Rate Blood Pressure 103/79 Blood Pressure 123/77 [Left] O2 Sat by Pulse 99 96 Oximetry Laboratory Last Values WBC 4.4 K/mm3 (4.5-11.0) L 12/26/18 03:59 RBC 4.34 M/mm3 (3.65-5.03) 12/26/18 03:59 Hgb 13.8 gm/dl (11.8-15.2) 12/26/18 03:59 Hct 39.6 % (35.5-45.6) 12/26/18 03:59 MCV 91 fl (84-94) 12/26/18 03:59 MCH 32 pg (28-32) 12/26/18 03:59 MCHC 35 % (32-34) H 12/26/18 03:59 RDW 12.3 % (13.2-15.2) L 12/26/18 03:59 Plt Count 169 K/mm3 (140-440) 12/26/18 03:59 Sodium 136 mmol/L (137-145) L 12/26/18 03:59 Potassium 4.5 mmol/L (3.6-5.0) 12/26/18 03:59 Chloride 98.5 mmol/L (98-107) 12/26/18 03:59 Carbon Dioxide 26 mmol/L (22-30) 12/26/18 03:59 Anion Gap 16 mmol/L 12/26/18 03:59 BUN 12 mg/dL (9-20) 12/26/18 03:59 Creatinine 0.9 mg/dL (0.8-1.5) 12/26/18 03:59 Estimated GFR > 60 ml/min 12/26/18 03:59 BUN/Creatinine Ratio 13 % 12/26/18 03:59 Glucose 105 mg/dL (75-100) H 12/26/18 03:59 Calcium 8.5 mg/dL (8.4-10.2) 12/26/18 03:59 Total Creatine Kinase 114 units/L (55-170) 12/26/18 03:59 Urine Color Yellow (Yellow) 12/26/18 00:58 Urine Turbidity Clear (Clear) 12/26/18 00:58 Urine pH 7.0 (5.0-7.0) 12/26/18 00:58 Ur Specific [place] 1.015 (1.003-1.030) 12/26/18 00:58 Urine Protein <15 mg/dl mg/dL (Negative) 12/26/18 00:58 Urine Glucose (UA) Neg mg/dL (Negative) 12/26/18 00:58 Urine Ketones Neg mg/dL (Negative) 12/26/18 00:58 Urine Blood Neg (Negative) 12/26/18 00:58 Urine Nitrite Neg (Negative) 12/26/18 00:58 Urine Bilirubin Neg (Negative) 12/26/18 00:58 Urine Urobilinogen 4.0 mg/dL (<2.0) 12/26/18 00:58 Ur Leukocyte Esterase Neg (Negative) 12/26/18 00:58 Urine WBC (Auto) < 1.0 /HPF (0.0-6.0) 12/26/18 00:58 Urine RBC (Auto) 1.0 /HPF (0.0-6.0) 12/26/18 00:58 Salicylates < 0.3 mg/dL (2.8-20.0) L 12/26/18 03:59 Urine Opiates Screen Presumptive negative 12/26/18 00:58 Urine Methadone Screen Presumptive negative 12/26/18 00:58 Acetaminophen < 5.0 ug/mL (10.0-30.0) L 12/26/18 03:59 Ur Barbiturates Screen Presumptive negative 12/26/18 00:58 Valproic Acid < 2.8 ug/mL (50-100) L 12/26/18 03:59 Ur Phencyclidine Scrn Presumptive negative 12/26/18 00:58 Ur Amphetamines Screen Presumptive negative 12/26/18 00:58 U Benzodiazepines Scrn Presumptive negative 12/26/18 00:58 Urine Cocaine Screen Presumptive negative 12/26/18 00:58 U Marijuana (THC) Screen Presumptive positive 12/26/18 00:58 Drugs of Abuse Note Disclamer 12/26/18 00:58 ED Disposition Clinical Impression: Depressed Qualifiers: Depression Type: unspecified Qualified Code(s): F32.9 - Major depressive disorder, single episode, unspecified Disposition: DC-01 TO HOME OR SELFCARE Is pt being admited?: No Does the pt Need Aspirin: No Condition: Good Instructions: Depression (ED) Prescriptions: Mirtazapine [Remeron] 15 mg PO HS #30 tablet Referrals: VY LEE MD [Primary Care Provider] - 3-5 Days <PILAR ARMSTRONG - Last Filed: 12/27/18 12:16> ED Review of Systems ROS: Stated complaint: MH EVAL Other details as noted in HPI ED Course Vital Signs 12/26/18 12/26/18 12/26/18 00:44 04:42 08:48 Temperature 98.2 F 98.4 F 97.6 F Pulse Rate 91 H 88 74 Respiratory 20 18 18 Rate Blood Pressure 103/79 Blood Pressure 123/77 109/65 [Left] O2 Sat by Pulse 99 96 98 Oximetry 12/26/18 12/26/18 12:00 19:05 Temperature 97.4 F L Pulse Rate 91 H Respiratory 18 18 Rate Blood Pressure Blood Pressure 116/83 [Left] O2 Sat by Pulse 99 96 Oximetry - Reevaluation(s) Reevaluation #4: 12/27/18 12:15 Patient was seen by mental health professionals. Tender to be rescinded. Patient is calm and states that they're no longer suicidal and that they're only just depressed. Patient was started on Remeron and will been given outpatient follow-up. ED Medical Decision Making - Lab Data Result diagrams: 12/26/18 03:59 12/26/18 03:59 Critical care attestation.: If time is entered above; I have spent that time in minutes in the direct care of this critically ill patient, excluding procedure time. ED Disposition Is pt being admited?: No Does the pt Need Aspirin: No Time of Disposition: 12:16
[2018-12-26 02:21] LABS: Cannabinoid Screen,Urine PRESUMPTIVE POSITIVE
[2018-12-26] MEDS: ANTIVERT PO SCH ×2 (02:51→14:51)
[2018-12-26] MEDS: LASIX PO SCH ×2 (02:51→11:15)
[2018-12-26 04:39] LABS: Hematocrit 39.6 % (35.5-45.6); Hemoglobin 13.8 gm/dl (11.8-15.2); Mean Corpuscular HGB Conc 35 % (32-34); Mean Corpuscular Volume 91 fl (84-94); Platelet Count 169 K/mm3 (140-440); Red Blood Count 4.34 M/mm3 (3.65-5.03); Red Cell Distribution Width 12.3 % (13.2-15.2)
[2018-12-26 05:02] LABS: BUN/Creatinine Ratio 13; Blood Urea Nitrogen 12 mg/dL (9-20); Calcium 8.5 mg/dL (8.4-10.2); Hemolysis Index 24
[2018-12-26] MEDS: KEPPRA PO SCH (11:15)
[2018-12-26] MEDS: PLAVIX PO SCH (11:15)
[2018-12-26] MEDS: PROTONIX PO SCH (11:15)
[2018-12-26] MEDS: ZIAGEN PO SCH (11:16)
--- NOTE | 2018-12-26 12:20 | Consultation ---
History of Present Illness - Reason for Consult Consult date: 12/26/18 Reason for consult: Mental Health EValuation Requesting physician: DUSTIN GOMEZ - Chief Complaint Chief complaint: "I was treated right" - History of Present Psychiatric Illness 53 y.o. male who presented to the ER with SI's. The patient was discharged from [facility] 12/25/2018 and returned to the ER the next day. Today the patient is calm, but vague during the assessment. He stated that he felt like the hospital didn't "do a good job" treating his medical concerns on his 12/21/2018 admission to [facility]. He stated that he thought about how he was treated by the hospital and became suicidal. He rate his depression 6/10, with 10 being the worse. He was asked several questions about his mental health, he was vague with his answers. He does endorse SI's, but would not confirm or deny a suicide plan. He denies HI's and AVH's. He denies recreational drug use, but was positive for marijuana. He denies alcohol consumption (etoh). Medications and Allergies Allergies Allergy/AdvReac Type Severity Reaction Status Date / Time metoclopramide [From Reglan] Allergy Anaphylaxis Verified 12/21/18 08:53 prochlorperazine Allergy Anaphylaxis Verified 12/21/18 08:53 [From Compazine] promethazine [From Phenergan] Allergy Anaphylaxis Verified 12/21/18 08:53 Home Medications Medication Instructions Recorded Confirmed Last Taken Type Acetaminophen/Codeine [Tylenol 1 tab PO Q6H PRN #14 tab 09/17/18 12/26/18 09/19/18 Rx /Codeine # 3 tab] ARIPiprazole [Abilify] 50 mg PO DAILY 09/21/18 12/26/18 12/21/18 History Clopidogrel Bisulfate [Plavix] 75 mg PO DAILY 09/21/18 12/26/18 12/21/18 History Furosemide [Lasix] 40 mg PO DAILY 09/21/18 12/26/18 12/21/18 History Rosuvastatin Calcium [Crestor] 40 mg PO DAILY 09/21/18 12/26/18 12/21/18 History busPIRone [Buspar] 10 mg PO DAILY 09/21/18 12/26/18 12/21/18 History Meclizine HCl [Meclizine CHEW] 25 mg PO Q6H #20 tab.chew 10/19/18 12/26/18 12/21/18 Rx oxyCODONE /ACETAMINOPHEN [Percocet 1 tab PO Q4HR #7 tab 10/19/18 12/26/18 12/21/18 Rx 5/325 mg] Dilantin (Nf) 300 mg PO DAILY 12/22/18 12/26/18 12/21/18 History levETIRAcetam [Keppra] 1 mg PO QDAY 12/22/18 12/26/18 1 Day Ago History ~12/21/18 Abacavir 1 tab PO DAILY 12/23/18 12/26/18 Unknown History Aspirin 81 mg PO DAILY 12/23/18 12/26/18 Unknown History Colace CAP 1 cap PO Q12HR 12/23/18 12/26/18 Unknown History Divalproex Sodium 1,000 mg PO BID 12/23/18 12/26/18 Unknown History Doxepin [SINEquan] 10 mg PO QHS capsule 12/25/18 12/26/18 Unknown Rx Pantoprazole [Protonix TAB] 40 mg PO DAILY #30 tablet 12/25/18 12/26/18 Unknown Rx Active Meds: Active Medications Abacavir Sulfate (Ziagen) 300 mg PO DAILY [facility] Last Admin: 12/26/18 11:16 Dose: Not Given Documented by: Atorvastatin Calcium (Lipitor) 40 mg PO QHS [facility] Clopidogrel Bisulfate (Plavix) 75 mg PO DAILY [facility] Last Admin: 12/26/18 11:15 Dose: Not Given Documented by: Furosemide (Lasix) 40 mg PO QDAY [facility] Last Admin: 12/26/18 11:15 Dose: Not Given Documented by: Haloperidol Lactate (Haldol) 5 mg IM Q6HR PRN PRN Reason: Agitation Levetiracetam (Keppra) 1,000 mg PO QDAY [facility] Last Admin: 12/26/18 11:15 Dose: Not Given Documented by: Lorazepam (Ativan) 2 mg IM Q4HR PRN PRN Reason: Agitation Meclizine HCl (Antivert) 25 mg PO Q6HR [facility] Last Admin: 12/26/18 02:51 Dose: Not Given Documented by: Pantoprazole Sodium (Protonix) 40 mg PO DAILY [facility] Last Admin: 12/26/18 11:15 Dose: Not Given Documented by: Past psychiatric history - Past Medical History Past Medical History: HIV/AIDS, hypertension Past Surgical History: No surgical history - past Psychiatric treatment and history psychiatric treatment history: Inpatient psy services in the past. Denies a fam psy hx. - Social History Social history: Lives alone Mental Status Exam - Vital signs Last Vital Signs Temp 97.6 F 12/26/18 08:48 Pulse 74 12/26/18 08:48 Resp 18 12/26/18 08:48 BP 109/65 12/26/18 08:48 Pulse Ox 98 12/26/18 08:48 - Exam Narrative exam: MSE: Appearance: calm Behavior: regular eye contact Speech: regular rate and tone Mood: guarded Affect: flat Thought Process: circumstantial Thought Content: denies HI and AVH's Motor Activity: ambulatory Cognition: A/Ox 3 Insight: vague Judgment: poor Results Result Diagrams: 12/26/18 03:59 12/26/18 03:59 Abnormal lab results 12/26/18 12/26/18 12/26/18 Range/Units 03:59 03:59 03:59 WBC 4.4 L (4.5-11.0) K/mm3 MCHC 35 H (32-34) % RDW 12.3 L (13.2-15.2) % Sodium 136 L (137-145) mmol/L Glucose 105 H (75-100) mg/dL Salicylates < 0.3 L (2.8-20.0) mg/dL Acetaminophen (10.0-30.0) ug/mL Phenytoin 3.5 L (10.0-20.0) ug/mL Valproic Acid < 2.8 L (50-100) ug/mL 12/26/18 Range/Units 03:59 WBC (4.5-11.0) K/mm3 MCHC (32-34) % RDW (13.2-15.2) % Sodium (137-145) mmol/L Glucose (75-100) mg/dL Salicylates (2.8-20.0) mg/dL Acetaminophen < 5.0 L (10.0-30.0) ug/mL Phenytoin (10.0-20.0) ug/mL Valproic Acid (50-100) ug/mL All other labs normal. Assessment and Plan Assessment and plan: Impression: MDD. Cannabis Use DO. Today the patient is calm, but vague during the assessment. DDx: Bipolar DO Recommendation/Plan: Continue 1013 and start Remeron 15 mg Po HS for depression. Discussed possible suicidality/medication induced jessica with patient reference Remeron. Dispo: The patient was referred to inpatient psy services. Will staff with Dr Diggs.
[2018-12-26] MEDS ORDERED: REMERON PO SCH (22:00)
[2018-12-27 03:42] VITALS: BP 116/83
[2018-12-27] MEDS: ANTIVERT PO SCH ×2 (08:01→12:57)
--- NOTE | 2018-12-27 10:52 | Progress Note ---
Subjective - Reason for Consult Consult date: 12/27/18 Reason for consult: Psychiatry Follow-up - Chief Complaint Chief complaint: "I am okay" 53 y.o. male who presented to the ER with SI's. The patient was discharged from [facility] 12/25/2018 and returned to the ER the next day. Today the patient is calm and cooperative during the assessment. He is more engaging today. He stated that he will handle his issues in a better way. He stated, "I wasn't suicidal, I was depressed yesterday." He denies SI/HI's and AVH's. He denies any side effects of his medication. Mental Status Exam - Vital signs Last Vital Signs Temp 97.4 F L 12/26/18 19:05 Pulse 91 H 12/26/18 19:05 Resp 18 12/26/18 19:05 BP 116/83 12/26/18 19:05 Pulse Ox 96 12/26/18 19:05 - Exam Narrative exam: MSE: Appearance: calm, cooperative Behavior: regular eye contact Speech: regular rate and tone Mood: "okay" Affect: congruent to mood Thought Process: logical Thought Content: denies SI/HI and AVH's Motor Activity: ambulatory Cognition: A/Ox 3 Insight: fair Judgment:fair Assessment and Plan Impression: MDD. Cannabis Use DO. Today the patient is calm and cooperative during the assessment. The patient is no threat to self. DDx: Bipolar DO Recommendation/Plan: Rescind 1013 and continue Remeron 15 mg Po HS for depression. Discussed possible suicidality/medication induced jessica with patient reference Remeron. Discussed the importance to abstain from recreational drug use. Dispo: The patient can follow up with [facility] for outpatient psy services. Will staff with Dr Mateo Bedoya.
[2018-12-27] MEDS: LASIX PO SCH (11:02)
[2018-12-27] MEDS: KEPPRA PO SCH (11:02)
[2018-12-27] MEDS: PLAVIX PO SCH (11:02)
[2018-12-27] MEDS: PROTONIX PO SCH (11:03)
[2018-12-27] MEDS: ZIAGEN PO SCH (11:03)
== END 2018-12-27 13:24 | disposition home or self-care (01) ==
LOC: ED 00:21
DX: F32.9 Major depressive disorder, single episode, unspecified (principal); F12.10 Cannabis abuse, uncomplicated; I11.0 Hypertensive heart disease with heart failure; I50.9 Heart failure, unspecified; I25.2 Old myocardial infarction; E11.9 Type 2 diabetes mellitus without complications; J44.9 Chronic obstructive pulmonary disease, unspecified; G80.9 Cerebral palsy, unspecified; F17.200 Nicotine dependence, unspecified, uncomplicated; F43.10 Post-traumatic stress disorder, unspecified; Z79.899 Other long term (current) drug therapy; Z88.8 Allergy status to other drugs, medicaments and biological substances
CPT/HCPCS: 36415; 80048; 80164; 80185; 80307; 81001; 82550; 85027; 99284; G0480; 80320

== ENCOUNTER 2019-01-08 11:15 | Emergency (ER) | payer MEDICARE ==
--- NOTE | 2019-01-08 12:11 | Emergency Department Report ---
Blank Doc - Documentation Documentation: This is a 53-year-old male that present with bilateral knee pain and lower back pain s/p fall. Stated that his legs keep giving out. Denies any head trauma or any other pain. This initial assessment/diagnostic orders/clinical plan/treatment(s) is/are subject to change based on patient's health status, clinical progression and re- assessment by fellow clinical providers in the ED. Further treatment and workup at subsequent clinical providers discretion. Patient/guardians urged not to elope from the ED as their condition may be serious if not clinically assessed and managed. Initial orders include: 1- Patient sent to [facility] for further evaluation and treatment 2- xrays 3- labs
[2019-01-08 13:15] LABS: Basophils % (Auto) 0.8 % (0.0-1.8); Eosinophils # (Auto) 0.1 K/mm3 (0.0-0.4); Eosinophils % (Auto) 3.4 % (0.0-4.3); Hematocrit 34.1 % (35.5-45.6); Hemoglobin 11.8 gm/dl (11.8-15.2); Lymphocytes # (Auto) 1.1 K/mm3 (1.2-5.4); Lymphocytes % (Auto) 32.1 % (13.4-35.0); Mean Corpuscular HGB Conc 35 % (32-34); Mean Corpuscular Volume 91 fl (84-94); Monocytes # (Auto) 0.4 K/mm3 (0.0-0.8); Platelet Count 172 K/mm3 (140-440); Red Blood Count 3.76 M/mm3 (3.65-5.03); Red Cell Distribution Width 12.3 % (13.2-15.2)
--- NOTE | 2019-01-08 13:31 | Emergency Department Report ---
ED Fall HPI - General Chief Complaint: Fall Stated Complaint: CONTINUE TO PASS OUT Time Seen by Provider: 01/08/19 11:58 Source: patient Mode of arrival: Ambulatory - History of Present Illness Initial Comments: Mrs. Barroso is a 53-year-old male with history of HIV, type 2 diabetes, coronary disease status post CABG, SLE, hypertension, COPD, chronic pain syndrome, seizure disorder, cerebral palsy who presents with frequent falls. He is wheelchair bound. MD Complaint: fall -: month(s) (several months) Severity: mild Context: history of frequent falls Associated Symptoms: denies - Related Data Home Medications Medication Instructions Recorded Confirmed Last Taken ARIPiprazole [Abilify] 50 mg PO DAILY 09/21/18 12/26/18 12/21/18 Clopidogrel Bisulfate [Plavix] 75 mg PO DAILY 09/21/18 12/26/18 12/21/18 Furosemide [Lasix] 40 mg PO DAILY 09/21/18 12/26/18 12/21/18 Rosuvastatin Calcium [Crestor] 40 mg PO DAILY 09/21/18 12/26/18 12/21/18 busPIRone [Buspar] 10 mg PO DAILY 09/21/18 12/26/18 12/21/18 Dilantin (Nf) 300 mg PO DAILY 12/22/18 12/26/18 12/21/18 levETIRAcetam [Keppra] 1 mg PO QDAY 12/22/18 12/26/18 1 Day Ago ~12/21/18 Abacavir 1 tab PO DAILY 12/23/18 12/26/18 Unknown Aspirin 81 mg PO DAILY 12/23/18 12/26/18 Unknown Colace CAP 1 cap PO Q12HR 12/23/18 12/26/18 Unknown Divalproex Sodium 1,000 mg PO BID 12/23/18 12/26/18 Unknown Previous Rx's Medication Instructions Recorded Last Taken Type Acetaminophen/Codeine [Tylenol 1 tab PO Q6H PRN #14 tab 09/17/18 09/19/18 Rx /Codeine # 3 tab] Meclizine HCl [Meclizine CHEW] 25 mg PO Q6H #20 tab.chew 10/19/18 12/21/18 Rx oxyCODONE /ACETAMINOPHEN [Percocet 1 tab PO Q4HR #7 tab 10/19/18 12/21/18 Rx 5/325 mg] Doxepin [SINEquan] 10 mg PO QHS capsule 12/25/18 Unknown Rx Pantoprazole [Protonix TAB] 40 mg PO DAILY #30 tablet 12/25/18 Unknown Rx Mirtazapine [Remeron] 15 mg PO HS #30 tablet 12/27/18 Unknown Rx Allergies Allergy/AdvReac Type Severity Reaction Status Date / Time metoclopramide [From Reglan] Allergy Anaphylaxis Verified 01/08/19 11:16 prochlorperazine Allergy Anaphylaxis Verified 01/08/19 11:16 [From Compazine] promethazine [From Phenergan] Allergy Anaphylaxis Verified 01/08/19 11:16 ED Review of Systems ROS: Stated complaint: CONTINUE TO PASS OUT Other details as noted in HPI Comment: All other systems reviewed and negative Respiratory: denies: cough Cardiovascular: denies: chest pain ED Past Medical Hx - Past Medical History Previous Medical History?: Yes Hx Hypertension: Yes Hx CVA: Yes (left sided weakness) Hx Heart Attack/AMI: Yes (2018) Hx Congestive Heart Failure: Yes Hx Diabetes: Yes Hx Seizures: Yes Hx Psychiatric Treatment: Yes (PTSD,depression) Hx Asthma: Yes Hx COPD: Yes Hx HIV: Yes Additional medical history: Cerebral palsy - Surgical History Additional Surgical History: CABG - Social History Smoking Status: Current Every Day Smoker Substance Use Type: None - Medications Home Medications: Home Medications Medication Instructions Recorded Confirmed Last Taken Type Acetaminophen/Codeine [Tylenol 1 tab PO Q6H PRN #14 tab 09/17/18 12/26/18 09/19/18 Rx /Codeine # 3 tab] ARIPiprazole [Abilify] 50 mg PO DAILY 09/21/18 12/26/18 12/21/18 History Clopidogrel Bisulfate [Plavix] 75 mg PO DAILY 09/21/18 12/26/18 12/21/18 History Furosemide [Lasix] 40 mg PO DAILY 09/21/18 12/26/18 12/21/18 History Rosuvastatin Calcium [Crestor] 40 mg PO DAILY 09/21/18 12/26/18 12/21/18 History busPIRone [Buspar] 10 mg PO DAILY 09/21/18 12/26/18 12/21/18 History Meclizine HCl [Meclizine CHEW] 25 mg PO Q6H #20 tab.chew 10/19/18 12/26/18 12/21/18 Rx oxyCODONE /ACETAMINOPHEN [Percocet 1 tab PO Q4HR #7 tab 10/19/18 12/26/18 12/21/18 Rx 5/325 mg] Dilantin (Nf) 300 mg PO DAILY 12/22/18 12/26/18 12/21/18 History levETIRAcetam [Keppra] 1 mg PO QDAY 12/22/18 12/26/18 1 Day Ago History ~12/21/18 Abacavir 1 tab PO DAILY 12/23/18 12/26/18 Unknown History Aspirin 81 mg PO DAILY 12/23/18 12/26/18 Unknown History Colace CAP 1 cap PO Q12HR 12/23/18 12/26/18 Unknown History Divalproex Sodium 1,000 mg PO BID 12/23/18 12/26/18 Unknown History Doxepin [SINEquan] 10 mg PO QHS capsule 12/25/18 12/26/18 Unknown Rx Pantoprazole [Protonix TAB] 40 mg PO DAILY #30 tablet 12/25/18 12/26/18 Unknown Rx Mirtazapine [Remeron] 15 mg PO HS #30 tablet 12/27/18 Unknown Rx ED Physical Exam - General Limitations: No Limitations General appearance: alert, in no apparent distress - Head Head exam: Present: atraumatic, normocephalic - Eye Eye exam: Present: normal appearance - ENT ENT exam: Present: mucous membranes moist - Neck Neck exam: Present: normal inspection, full ROM - Respiratory Respiratory exam: Present: normal lung sounds bilaterally. Absent: respiratory distress, wheezes, rales, rhonchi - Cardiovascular Cardiovascular Exam: Present: regular rate, normal rhythm, normal heart sounds. Absent: systolic murmur, diastolic murmur, rubs, gallop - GI/Abdominal GI/Abdominal exam: Present: soft, normal bowel sounds. Absent: distended, tenderness, guarding, rebound - Rectal Rectal exam: Present: deferred - Extremities Exam Extremities exam: Present: normal inspection - Back Exam Back exam: Present: normal inspection - Neurological Exam Neurological exam: Present: alert, oriented X3 - Psychiatric Psychiatric exam: Present: normal affect, agitated - Skin Skin exam: Present: warm, dry, intact, normal color. Absent: rash ED Course Vital Signs 01/08/19 01/08/19 13:06 13:15 Pulse Rate 72 77 Respiratory 12 19 Rate Blood Pressure 131/91 O2 Sat by Pulse 98 98 Oximetry ED Medical Decision Making - Lab Data Result diagrams: 01/08/19 12:56 Laboratory Results - last 24 hr 01/08/19 12:56 WBC 3.5 L RBC 3.76 Hgb 11.8 Hct 34.1 L MCV 91 MCH 31 MCHC 35 H RDW 12.3 L Plt Count 172 Lymph % (Auto) 32.1 [place] % (Auto) 11.0 H Eos % (Auto) 3.4 Baso % (Auto) 0.8 Lymph # 1.1 L [place] # 0.4 Eos # 0.1 Baso # 0.0 Seg Neutrophils % 52.7 Seg Neutrophils # 1.8 - Radiology Data Radiology results: image reviewed interpreted by me: Lumbar spine and bilateral knee radiographs reviewed per me no acute process - Medical Decision Making Mr. Barroso presents to ED with reported frequent falls. He has home health care nurse visitation mckayla. He lives with his who is unable to provide care due to mental illness, schizophrenia. Mr. Barroso is mostly in wheelchair 90% of the time according to his report. He is unable to describe the fall mechanism. Due to his of cerebral palsy and possible CVA, deconditioning and instability are likely. No indication of syncope or severe injury. Upon discharge Mr. Barroso became irate and agitated. He felt that an appropriate work up was not performed. He is discharged and encouraged to speak with patient advocate. Critical care attestation.: If time is entered above; I have spent that time in minutes in the direct care of this critically ill patient, excluding procedure time. ED Disposition Clinical Impression: Recurrent falls Disposition: DC-01 TO HOME OR SELFCARE Is pt being admited?: No Does the pt Need Aspirin: No Condition: Stable Instructions: Fall Prevention (ED) Referrals: VY LEE MD [Primary Care Provider] - 3-5 Days CJ GUO MD [Staff Physician] - 3-5 Days
[2019-01-08 13:52] VITALS: BP 131/81
[2019-01-08 13:52] LABS: BUN/Creatinine Ratio 13; Blood Urea Nitrogen 10 mg/dL (9-20); Hemolysis Index 6
[2019-01-08 13:56] LABS: Calcium 8.1 mg/dL (8.4-10.2)
--- NOTE | 2019-01-08 13:56 | XRay Report ---
AP AND LATERAL LUMBOSACRAL SPINE: History: Low back pain. The vertebral bodies are well mineralized and normal in alignment and vertebral height with well preserved interspace distances. The visualized portions of the posterior elements are normal. IMPRESSION: Unremarkable lumbar spine films.
--- NOTE | 2019-01-08 13:57 | XRay Report ---
BILATERAL KNEES, 3 VIEWS History: Bilateral knee pain. Findings: Normal bone mineralization. Minimal retropatellar and tibial spine spurring is identified in both knees. The joint space is within normal limits otherwise. No evidence for fracture, bone lesion or large joint effusion. Impression: Minimal osteoarthritic changes.
[2019-01-08 14:55] LABS: Bilirubin,Urine NEG (Negative); Blood,Urine NEG (Negative); Color,Urine Yellow (Yellow); Mucus,Urine 3+ /HPF; Protein,Urine <15 mg/dL mg/dL (Negative)
== END 2019-01-08 14:30 | disposition home or self-care (01) ==
LOC: ED 11:15
DX: M25.561 Pain in right knee (principal); M25.562 Pain in left knee; M54.5 Low back pain; I11.0 Hypertensive heart disease with heart failure; I50.9 Heart failure, unspecified; I25.2 Old myocardial infarction; E11.9 Type 2 diabetes mellitus without complications; F32.9 Major depressive disorder, single episode, unspecified; J44.9 Chronic obstructive pulmonary disease, unspecified; G80.9 Cerebral palsy, unspecified; F17.200 Nicotine dependence, unspecified, uncomplicated; Z88.8 Allergy status to other drugs, medicaments and biological substances; W18.30XA Fall on same level, unspecified, initial encounter; Y93.89 Activity, other specified; Y92.89 Other specified places as the place of occurrence of the external cause; Y99.8 Other external cause status
CPT/HCPCS: 36415; 72100; 80048; 81001; 85025; 99283

== ENCOUNTER 2019-03-08 21:57 | Observation (INO) | payer OTHER, MEDICARE ==
--- NOTE | 2019-03-08 22:28 | Emergency Department Report ---
Blank Doc - Documentation Documentation: 53 y o male who was recently d/c today from ER with a hx of MH returns to ED cc of dizziness that started today after he went [place] and ate at a restaurant also cc of a burning rash on his aems and leg MAin ed eval MH?
[2019-03-08 22:52] LABS: Eosinophils # (Auto) 0.1 K/mm3 (0.0-0.4); Hematocrit 37.3 % (35.5-45.6); Hemoglobin 13.4 gm/dl (11.8-15.2); Lymphocytes # (Auto) 1.2 K/mm3 (1.2-5.4); Lymphocytes % (Auto) 36.5 % (13.4-35.0); Mean Corpuscular HGB Conc 36 % (32-34); Mean Corpuscular Volume 90 fl (84-94); Monocytes # (Auto) 0.5 K/mm3 (0.0-0.8); Monocytes % (Auto) 14.8 % (0.0-7.3); Platelet Count 179 K/mm3 (140-440); Red Blood Count 4.12 M/mm3 (3.65-5.03); Red Cell Distribution Width 13.7 % (13.2-15.2)
[2019-03-08 23:07] LABS: BUN/Creatinine Ratio 13; Blood Urea Nitrogen 12 mg/dL (9-20); Calcium 8.1 mg/dL (8.4-10.2); Hemolysis Index 8
[2019-03-09] MEDS ORDERED: ANTIVERT PO ONE (00:06)
--- NOTE | 2019-03-09 00:16 | Emergency Department Report ---
HPI - General Chief Complaint: Dizziness Time Seen by Provider: 03/08/19 22:26 - HPI HPI: Room 24 The patient is a 53-year-old male presenting with chief complaint syncope and dizziness. The patient states he's had 6 syncopal episodes over the past 3 d ays. Patient states his episodes are preceded by dizziness. Patient states he becomes dizzy whenever he changes position. The patient states he did not have seizures during his 6 syncopal episodes as they were witnessed by his . The patient states his spouse has also noted patient has had worsening left sided facial droop and left-sided weakness for the past 32 hours. Patient states she is also had a diffuse pruritic rash over the past 2 weeks Location: [See above] Duration: [See above] Quality: [See above] Severity: [See above] Modifying factors: [see above] Context: [see above] Mode of transportation: [not driving] ED Past Medical Hx - Past Medical History Previous Medical History?: Yes Hx Hypertension: Yes Hx CVA: Yes (left sided weakness) Hx Heart Attack/AMI: Yes (2018) Hx Congestive Heart Failure: Yes Hx Diabetes: Yes Hx Seizures: Yes Hx Psychiatric Treatment: Yes (PTSD,depression) Hx Asthma: Yes Hx COPD: Yes Hx HIV: Yes (last CD4 count 10 (spring 2018)) Additional medical history: Cerebral palsy - Surgical History Past Surgical History?: Yes Additional Surgical History: CABG - Family History Family history: no significant - Social History Smoking Status: Current Every Day Smoker (2/3 pack per day) Substance Use Type: None (denies illicit drug use), Alcohol (occasional) - Medications Home Medications: Home Medications Medication Instructions Recorded Confirmed Last Taken Type Acetaminophen/Codeine [Tylenol 1 tab PO Q6H PRN #14 tab 09/17/18 12/26/18 09/19/18 Rx /Codeine # 3 tab] ARIPiprazole [Abilify] 50 mg PO DAILY 09/21/18 12/26/18 12/21/18 History Clopidogrel Bisulfate [Plavix] 75 mg PO DAILY 09/21/18 12/26/18 12/21/18 History Furosemide [Lasix] 40 mg PO DAILY 09/21/18 12/26/18 12/21/18 History Rosuvastatin Calcium [Crestor] 40 mg PO DAILY 09/21/18 12/26/18 12/21/18 History busPIRone [Buspar] 10 mg PO DAILY 09/21/18 12/26/18 12/21/18 History Meclizine HCl [Meclizine CHEW] 25 mg PO Q6H #20 tab.chew 10/19/18 12/26/18 12/21/18 Rx oxyCODONE /ACETAMINOPHEN [Percocet 1 tab PO Q4HR #7 tab 10/19/18 12/26/18 12/21/18 Rx 5/325 mg] Dilantin (Nf) 300 mg PO DAILY 12/22/18 12/26/18 12/21/18 History levETIRAcetam [Keppra] 1 mg PO QDAY 12/22/18 12/26/18 1 Day Ago History ~12/21/18 Abacavir 1 tab PO DAILY 12/23/18 12/26/18 Unknown History Aspirin 81 mg PO DAILY 12/23/18 12/26/18 Unknown History Colace CAP 1 cap PO Q12HR 12/23/18 12/26/18 Unknown History Divalproex Sodium 1,000 mg PO BID 12/23/18 12/26/18 Unknown History Doxepin [SINEquan] 10 mg PO QHS capsule 12/25/18 12/26/18 Unknown Rx Pantoprazole [Protonix TAB] 40 mg PO DAILY #30 tablet 12/25/18 12/26/18 Unknown Rx Mirtazapine [Remeron 15mg TAB] 15 mg PO HS #30 tablet 12/27/18 Unknown Rx Prednisone [predniSONE 10 mg 10 mg PO .TAPER #1 tab.ds.pk 03/08/19 Unknown Rx (6-Day Pack, 21 Tabs)] diphenhydrAMINE [Benadryl CAP] 25 mg PO Q8HR PRN #20 capsule 03/08/19 Unknown Rx traMADol [Ultram 50 MG tab] 50 mg PO Q4HR PRN #10 tablet 03/08/19 Unknown Rx ED Review of Systems ROS: Stated complaint: DIZZINESS Other details as noted in HPI Constitutional: no symptoms reported Eyes: denies: eye pain ENT: denies: throat pain Respiratory: no symptoms reported Cardiovascular: denies: chest pain Endocrine: no symptoms reported Gastrointestinal: denies: abdominal pain Genitourinary: denies: dysuria Musculoskeletal: denies: back pain Skin: rash, pruritus Neurological: vertigo, other (syncope). denies: headache Physical Exam - Physical Exam Vital Signs: Vital Signs 03/08/19 22:12 Temperature 97.4 F L Pulse Rate 76 Respiratory 18 Rate Blood Pressure 130/80 O2 Sat by Pulse 97 Oximetry Physical Exam: GENERAL: The patient is well-developed well-nourished male lying on stretcher not appear to be in acute distress. [] HEENT: Normocephalic. Atraumatic. Extraocular motions are intact. Patient has moist mucous membranes. NECK: Supple. Trachea midline CHEST/LUNGS: Clear to auscultation. There is no respiratory distress noted. HEART/CARDIOVASCULAR: Regular. There is no tachycardia. There is no gallop rub or murmur. ABDOMEN: Abdomen is soft, nontender. Patient has normal bowel sounds. There is no abdominal distention. SKIN: There is no rash. There is no edema. There is no diaphoresis. NEURO: The patient is awake, alert, and oriented. The patient is cooperative. There is left-sided pronator drift. The patient has normal speech. Cranial nerves II-12 grossly intact. MUSCULOSKELETAL: There is no evidence of acute injury. ED Course Vital Signs 03/08/19 22:12 Temperature 97.4 F L Pulse Rate 76 Respiratory 18 Rate Blood Pressure 130/80 O2 Sat by Pulse 97 Oximetry ED Medical Decision Making - Lab Data Result diagrams: 03/08/19 22:39 03/08/19 22:39 Laboratory Tests 03/08/19 03/08/19 03/09/19 22:39 22:39 00:14 WBC 3.3 L RBC 4.12 Hgb 13.4 Hct 37.3 MCV 90 MCH 32 MCHC 36 H RDW 13.7 Plt Count 179 Lymph % (Auto) 36.5 H [place] % (Auto) 14.8 H Eos % (Auto) 3.0 Baso % (Auto) 1.0 Lymph # 1.2 [place] # 0.5 Eos # 0.1 Baso # 0.0 Seg Neutrophils % 44.7 Seg Neutrophils # 1.5 L PT 13.7 INR 0.99 APTT 26.1 Sodium 137 Potassium 3.9 Chloride 105.0 Carbon Dioxide 21 L Anion Gap 15 BUN 12 Creatinine 0.9 Estimated GFR > 60 BUN/Creatinine Ratio 13 Glucose 122 H Calcium 8.1 L Magnesium Total Creatine Kinase CK-MB (CK-2) CK-MB (CK-2) Rel Index Troponin T 03/09/19 00:14 WBC RBC Hgb Hct MCV MCH MCHC RDW Plt Count Lymph % (Auto) [place] % (Auto) Eos % (Auto) Baso % (Auto) Lymph # [place] # Eos # Baso # Seg Neutrophils % Seg Neutrophils # PT INR APTT Sodium Potassium Chloride Carbon Dioxide Anion Gap BUN Creatinine Estimated GFR BUN/Creatinine Ratio Glucose Calcium Magnesium 1.70 Total Creatine Kinase 178 H CK-MB (CK-2) 2.6 CK-MB (CK-2) Rel Index 1.4 Troponin T < 0.010 - EKG Data -: EKG Interpreted by In EKG shows normal: sinus rhythm Rate: normal - EKG Data When compared to previous EKG there are: changes noted Interpretation: nonspecific ST-T wave zeeshan (Biphasic T-wave in lead V2 otherwise unchanged when compared to previous EKG dated 11/12/2018) - Radiology Data Radiology results: report reviewed (CT head), image reviewed (CT head) [place] [id number] Cat Scan Report Signed Patient: MARLY COELHO MR#: [id number] : 1965 Acct:[id number] Age/Sex: 53 / M ADM Date: 03/08/19 Loc: ED Attending Dr: Ordering Physician: ROBIN QUIROGA MD Date of Service: 03/09/19 Procedure(s): CT head/brain wo con Accession Number(s): [id number] cc: ROBIN QUIROGA MD PROCEDURE: CT HEAD/BRAIN WO CON TECHNIQUE: Computerized tomography of the head was performed without contrast material. CT DOSE LENGTH PRODUCT: 1035.5 mGycm HISTORY: mult syncopal episodes, dizziness, weak on left COMPARISONS: 12/21/2018 . FINDINGS: Skull and scalp: Normal . Paranasal sinuses: Normal . Ventricles and subarachnoid spaces: There is stable dilatation of the ventricular system with asymmetric enlargement of the right lateral ventricle. . Cerebrum: No evidence of hemorrhage, acute infarction or mass . Cerebellum and brainstem: No evidence of hemorrhage, acute infarction or mass . Vasculature: Normal . Other: None . ASPECTS: 10 IMPRESSION: No evidence of acute stroke or hemorrhage. Stable asymmetric enlargement of the right lateral ventricle . This document is elec tronically signed by Pati Hudson MD., March 09 2019 01:59:02 AM ET Transcribed By: RB Dictated By: PATI HUDSON MD Electronically Authenticated By: PATI HUDSON MD Signed Date/Time: 03/09/19200 DD/ TD/TT: 03/09/1945 - Differential Diagnosis syncope, dysrhythmia, CVA, Sanya's paralysis, Critical care attestation.: If time is entered above; I have spent that time in minutes in the direct care of this critically ill patient, excluding procedure time. ED Disposition Clinical Impression: Syncope, Left-sided weakness Disposition: OP ADMIT IP TO THIS HOSP Is pt being admited?: Yes Does the pt Need Aspirin: Yes Condition: Fair Instructions: Syncope (ED) Referrals: VY LEE MD [Primary Care Provider] - 3-5 Days Time of Disposition: 02:28 (hospitalist paged (Dr Merino))
[2019-03-09 00:42] LABS: INR 0.99 (0.87-1.13)
[2019-03-09 00:43] LABS: Partial Thromboplastin Time 26.1 Sec. (24.2-36.6)
[2019-03-09 01:28] LABS: Creatine Kinase MB 2.6 ng/mL (0.0-4.0)
[2019-03-09] MEDS ORDERED: BENADRYL IV ONE (01:57)
--- NOTE | 2019-03-09 02:01 | Cat Scan Report ---
PROCEDURE: CT HEAD/BRAIN WO CON TECHNIQUE: Computerized tomography of the head was performed without contrast material. CT DOSE LENGTH PRODUCT: 1035.5 mGycm HISTORY: mult syncopal episodes, dizziness, weak on left COMPARISONS: 12/21/2018 . FINDINGS: Skull and scalp: Normal . Paranasal sinuses: Normal . Ventricles and subarachnoid spaces: There is stable dilatation of the ventricular system with asymme tric enlargement of the right lateral ventricle. . Cerebrum: No evidence of hemorrhage, acute infarction or mass . Cerebellum and brainstem: No evidence of hemorrhage, acute infarction or mass . Vasculature: Normal . Other: None . ASPECTS: 10 IMPRESSION: No evidence of acute stroke or hemorrhage. Stable asymmetric enlargement of the right la teral ventricle . This document is electronically signed by Audie Hudson MD., March 09 2019 01:59:02 AM ET
[2019-03-09] MEDS ORDERED: ASPIRIN PO ONE (02:28)
[2019-03-09] MEDS ORDERED: ZOFRAN IV PRN (02:45)
[2019-03-09] MEDS ORDERED: TYLENOL PO PRN ×2 (02:45→02:49)
[2019-03-09] MEDS ORDERED: SODIUM CHLORIDE FLUSH SYRINGE 10 ML IV PRN (02:45)
[2019-03-09] MEDS ORDERED: SODIUM CHLORIDE FLUSH SYRINGE 10 ML INJ PRN (02:49)
--- NOTE | 2019-03-09 03:23 | History and Physical Report ---
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 According to patient he's had 6 syncopal episodes, 4 seizures over the past 3 days, and all events were witnessed by his . Of note patient's is not at bedside to confirm this. However, patient's brother is at the bedside, but is unable to confirm events. Patient states he also has worsening left side facial droop and left side weakness. Additionally diffuse pruritic rash over the past 2 weeks. He complains of itchiness associated with the rash. Of note this is patient's second visit to the ED within 12 hours. He was seen around 1pm and returned to ED around midnight. Even though patient states that he has been experiencing syncopal episodes and seizures for past 3 days he did not mention this on his initial visit on 03/08/19. Instead patient complained of diarrhea for 3 weeks, elevated BP for 1 day and diffuse pruritic rash. He is diagnosed with contact dermatitis. He was treated with Toradol for pain and advised to follow-up with PCP in 2-3 days. Denies fever, cough, sputum production, headache, visual disturbances, recent sick contact Past History Past Medical History: diabetes, heart failure (status post CABG), HIV/AIDS (last CD4 count of 10 in spring 2018), seizures, stroke (12/2018 residual left-sided weakness), other (asthma, lupus, cerebral palsy) Social history: smoking (smokes 2/3 pack per day) Medications and Allergies Allergies Allergy/AdvReac Type Severity Reaction Status Date / Time metoclopramide [From Reglan] Allergy Anaphylaxis Verified 01/08/19 11:16 prochlorperazine Allergy Anaphylaxis Verified 01/08/19 11:16 [From Compazine] promethazine [From Phenergan] Allergy Anaphylaxis Verified 01/08/19 11:16 Home Medications Medication Instructions Recorded Confirmed Last Taken Type Clopidogrel Bisulfate [Plavix] 75 mg PO DAILY 09/21/18 12/26/18 12/21/18 History Furosemide [Lasix] 40 mg PO DAILY 09/21/18 12/26/18 12/21/18 History Colace CAP 1 cap PO Q12HR 12/23/18 12/26/18 Unknown History Pantoprazole [Protonix TAB] 40 mg PO DAILY #30 tablet 12/25/18 03/10/19 Unknown Rx ALBUTEROL NEB's 03/09/19 Unknown History Advair Diskus 500-50 mcg 03/09/19 Unknown History Calcium Carbonate [Calcium 600MG 600 mg PO 03/09/19 Unknown History TAB] Combivent Inhaler 03/09/19 Unknown History Dronabinol [Marinol] 5 mg PO BID 03/09/19 03/09/19 Unknown History Insulin Aspart [NovoLOG Flexpen] 0 units SQ AC 03/09/19 03/09/19 Unknown History Insulin NPH Hum/Reg Insulin Hm 03/09/19 Unknown History [Novolin 70-30 100 Unit/ml Vial] Metoprolol [Lopressor] 100 mg PO BID 03/09/19 03/09/19 Unknown History Oxycodone HCl/Acetaminophen 1 each PO Q6HR PRN 03/09/19 03/09/19 Unknown History [Percocet 10/325 mg] Potassium Chloride [K-Dur] 20 meq PO BID 03/09/19 03/09/19 Unknown History Tapentadol HCl [Nucynta] 75 mg PO 03/09/19 Unknown History Triumeq 600-50-300 mg Tablet 03/09/19 Unknown History diphenhydrAMINE [Benadryl CAP] 50 mg PO Q8HR PRN 03/09/19 03/09/19 Unknown History levETIRAcetam [Keppra TAB] 750 mg PO BID 03/09/19 03/09/19 Unknown History Active Meds: Active Medications Acetaminophen (Tylenol) 650 mg PO Q4H PRN PRN Reason: Pain MILD(1-3)/Fever >100.5/GARCIA Clopidogrel Bisulfate (Plavix) 75 mg PO DAILY DEBRA Docusate Sodium (Colace) 100 mg PO BID DEBRA Enoxaparin Sodium (Lovenox) 40 mg SUB-Q QDAY DEBRA Levetiracetam (Keppra) 500 mg PO BID [facility] Ondansetron HCl (Zofran) 4 mg IV Q8H PRN PRN Reason: Nausea And Vomiting Pantoprazole Sodium (Protonix) 40 mg PO DAILY DEBRA Phenytoin (Dilantin) 300 mg PO DAILY DEBRA Pravastatin Sodium (Pravachol) 40 mg PO QHS DEBRA Sodium Chloride (Sodium Chloride Flush Syringe 10 Ml) 10 ml IV BID DEBRA Sodium Chloride (Sodium Chloride Flush Syringe 10 Ml) 10 ml IV PRN PRN PRN Reason: LINE FLUSH Review of Systems All systems: negative (reviewed an additional remarkable complaints except as noted below) Cardiovascular: syncope Respiratory: cough Musculoskeletal: gait dysfunction (Violette of left leg related to cerebral palsy and residual deficit s/p cva) Neurological: weakness (left-sided weakness), seizures, syncope Exam - Physical Exam Narrative exam: Physical exam General appearance: Present: No acute distress, alert and oriented 3, middle age adult male - EENT Eyes: Present: PERRL, EOM intact ENT: hearing intact, poor dentition - Neck Neck: Present: supple, normal ROM - Respiratory Respiratory effort: Non-labored Respiratory: Clear throughout - Cardiovascular Heart rate: 61 (bpm) Rhythm: Sinus rhythm, nonspecific T-wave abnormality Heart Sounds: Present: S1 & S2. Absent: rub, click - Extremities Extremities: no ischemia, pulses intact, abnormal (deformity and weakness and left upper and lower extremity related to cerebral palsy and residual deficit from CVA) - Peripheral Assessment Peripheral Pulses: within normal limits - Abdominal General gastrointestinal: soft, non-tender, normal bowel sounds - Integumentary Integumentary: Present: warm, dry - Musculoskeletal Musculoskeletal: Able to move all extremities, stable gait - Psychiatric Psychiatric: cooperative - Constitutional Vitals: Temp Pulse Resp BP Pulse Ox 97.4 F L 61 18 130/80 100 03/08/19 22:12 03/09/19 02:13 03/09/19 01:13 03/08/19 22:12 03/09/19 01:13 Results - Labs CBC & Chem 7: 03/08/19 22:39 03/08/19 22:39 Labs: Laboratory Last Values WBC 3.3 K/mm3 (4.5-11.0) L 03/08/19 22:39 RBC 4.12 M/mm3 (3.65-5.03) 03/08/19 22:39 Hgb 13.4 gm/dl (11.8-15.2) 03/08/19 22:39 Hct 37.3 % (35.5-45.6) 03/08/19 22:39 MCV 90 fl (84-94) 03/08/19 22:39 MCH 32 pg (28-32) 03/08/19 22:39 MCHC 36 % (32-34) H 03/08/19 22:39 RDW 13.7 % (13.2-15.2) 03/08/19 22:39 Plt Count 179 K/mm3 (140-440) 03/08/19 22:39 Lymph % (Auto) 36.5 % (13.4-35.0) H 03/08/19 22:39 Boy[place] % (Auto) 14.8 % (0.0-7.3) H 03/08/19 22:39 Eos % (Auto) 3.0 % (0.0-4.3) 03/08/19 22:39 Baso % (Auto) 1.0 % (0.0-1.8) 03/08/19 22:39 Lymph # 1.2 K/mm3 (1.2-5.4) 03/08/19 22:39 Boyle # 0.5 K/mm3 (0.0-0.8) 03/08/19 22:39 Eos # 0.1 K/mm3 (0.0-0.4) 03/08/19 22:39 Baso # 0.0 K/mm3 (0.0-0.1) 03/08/19 22:39 Seg Neutrophils % 44.7 % (40.0-70.0) 03/08/19 22:39 Seg Neutrophils # 1.5 K/mm3 (1.8-7.7) L 03/08/19 22:39 PT 13.7 Sec. (12.2-14.9) 03/09/19 00:14 INR 0.99 (0.87-1.13) 03/09/19 00:14 APTT 26.1 Sec. (24.2-36.6) 03/09/19 00:14 Sodium 137 mmol/L (137-145) 03/08/19 22:39 Potassium 3.9 mmol/L (3.6-5.0) 03/08/19 22:39 Chloride 105.0 mmol/L (98-107) 03/08/19 22:39 Carbon Dioxide 21 mmol/L (22-30) L 03/08/19 22:39 15 mmol/L 03/08/19 22:39 BUN 12 mg/dL (9-20) 03/08/19 22:39 0.9 mg/dL (0.8-1.5) 03/08/19 22:39 Estimated GFR > 60 ml/min 03/08/19 22:39 13 % 03/08/19 22:39 Glucose 122 mg/dL (75-100) H 03/08/19 22:39 Calcium 8.1 mg/dL (8.4-10.2) L 03/08/19 22:39 Magnesium 1.70 mg/dL (1.7-2.3) 03/09/19 00:14 178 units/L (55-170) H 03/09/19 00:14 CK-MB (CK-2) 2.6 ng/mL (0.0-4.0) 03/09/19 00:14 CK-MB (CK-2) Rel Index 1.4 (0-4) 03/09/19 00:14 < 0.010 ng/mL (0.00-0.029) 03/09/19 00:14 - Imaging and Cardiology EKG: image reviewed (sinus rhythm 61 bpm, nonspecific T-wave abnormalities) CT Scan - head: report reviewed ( FINDINGS: Skull and scalp: Normal .Paranasal sinuses: Normal . Ventricles and subarachnoid spaces: There is stable dilatation of the ventricular system with asymmetric enlargement of the right lateral ventricle.Cerebrum: No evidence of hemorrhage, acute infarction or mass .Cerebellum and brainstem: No evidence of hemorrhage, acute infarction or mass. Vasculature: Normal . IMPRESSION: No evidence of acute stroke or hemorrhage. 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 head negative for acute stroke or hemorrhage; and is stable compared to study done on 12/21/18. Troponin negative 1. Slight elevation in total creatinine kinase at 178. Will admit to telemetry for further evaluation. Syncope Seizure Neutropenia DM 2 CHF s/p CABG Asthma HTN Cerebral palsy with left-sided weakness CVA (12/2018) History of SLE HIV/AIDS (per pt CD4 count of 10 in ) Plan: Continue supportive care Initiate seizure precautions Neuro checks Repeat troponin pending Monitor BP Metoprolol 100 mg twice a day POC BG monitoring SSI and scheduled pre-meal coverage HgbA1c pending Echo, bilateral carotid duplex pending Resume home Plavix 75 mg daily, BB, Lasix Benadryl when necessary Resume keppra 500 mg twice a day and phenytoin 300 mg daily PT/OT eval pending Drug abuse panel pending Resume antiretrovirals Resume heart failure medication Monitor electrolytes and replete when necessary Schedule Pulmicort, albuterol when necessary Resume Dronabinol appetite stimulant Dietitian consult pending Monitor CBC, neutropenia likely secondary to advance disease progression HIV/AIDS DVT PPX anticoagulated on Plavix, on SCD's Advance Directives: No VTE prophylaxis?: Chemical Reason for no VTE Prophylaxis: Anticoagulant allergy Plan of care discussed with patient/family: Yes <FLORES MOSES - Last Filed: 03/21/19 21:15> History of Present Illness Date of admission: 03/09/19 02:45 Exam - Constitutional Vitals: Temp Pulse Resp BP Pulse Ox 98.1 F 63 18 120/73 97 03/10/19 12:15 03/10/19 13:00 03/10/19 12:15 03/10/19 12:15 03/10/19 05:11 Results - Labs CBC & Chem 7: 03/10/19 02:10 03/10/19 02:10 Labs: Laboratory Last Values WBC 3.7 K/mm3 (4.5-11.0) L 03/10/19 02:10 RBC 4.38 M/mm3 (3.65-5.03) 03/10/19 02:10 Hgb 13.8 gm/dl (11.8-15.2) 03/10/19 02:10 Hct 40.5 % (35.5-45.6) 03/10/19 02:10 MCV 93 fl (84-94) 03/10/19 02:10 MCH 32 pg (28-32) 03/10/19 02:10 MCHC 34 % (32-34) 03/10/19 02:10 RDW 13.8 % (13.2-15.2) 03/10/19 02:10 Plt Count 188 K/mm3 (140-440) 03/10/19 02:10 Lymph % (Auto) 35.2 % (13.4-35.0) H 03/10/19 02:10 Boy[place] % (Auto) 12.4 % (0.0-7.3) H 03/10/19 02:10 Eos % (Auto) 3.2 % (0.0-4.3) 03/10/19 02:10 Baso % (Auto) 0.8 % (0.0-1.8) 03/10/19 02:10 Lymph # 1.3 K/mm3 (1.2-5.4) 03/10/19 02:10 Boyle # 0.5 K/mm3 (0.0-0.8) 03/10/19 02:10 Eos # 0.1 K/mm3 (0.0-0.4) 03/10/19 02:10 Baso # 0.0 K/mm3 (0.0-0.1) 03/10/19 02:10 Seg Neutrophils % 48.4 % (40.0-70.0) 03/10/19 02:10 Seg Neutrophils # 1.8 K/mm3 (1.8-7.7) 03/10/19 02:10 PT 13.7 Sec. (12.2-14.9) 03/09/19 00:14 INR 0.99 (0.87-1.13) 03/09/19 00:14 APTT 26.1 Sec. (24.2-36.6) 03/09/19 00:14 Sodium 139 mmol/L (137-145) 03/10/19 02:10 Potassium 4.4 mmol/L (3.6-5.0) 03/10/19 02:10 Chloride 104.3 mmol/L (98-107) 03/10/19 02:10 Carbon Dioxide 22 mmol/L (22-30) 03/10/19 02:10 17 mmol/L 03/10/19 02:10 BUN 14 mg/dL (9-20) 03/10/19 02:10 1.1 mg/dL (0.8-1.5) 03/10/19 02:10 Estimated GFR > 60 ml/min 03/10/19 02:10 13 % 03/10/19 02:10 Glucose 99 mg/dL (75-100) 03/10/19 02:10 POC Glucose 93 (70-105) 03/10/19 12:40 5.1 % (4-6) 03/09/19 03:35 Calcium 8.7 mg/dL (8.4-10.2) 03/10/19 02:10 Magnesium 1.70 mg/dL (1.7-2.3) 03/09/19 00:14 178 units/L (55-170) H 03/09/19 00:14 CK-MB (CK-2) 2.6 ng/mL (0.0-4.0) 03/09/19 00:14 CK-MB (CK-2) Rel Index 1.4 (0-4) 03/09/19 00:14 < 0.010 ng/mL (0.00-0.029) 03/09/19 22:17 Triglycerides 103 mg/dL (2-149) 03/10/19 02:10 Cholesterol 124 mg/dL (50-199) 03/10/19 02:10 77 mg/dL (50-130) 03/10/19 02:10 41 mg/dL (40-59) 03/10/19 02:10 3.02 % 03/10/19 02:10 Assessment and Plan Assessment and plan: I personally discussed the patient with the CASINO DEALER-C and I agree with the above assessment and plan
[2019-03-09] MEDS ORDERED: D50W (25GM) Syringe IV PRN (03:26)
[2019-03-09] MEDS ORDERED: BENADRYL PO PRN (03:56)
[2019-03-09] MEDS ORDERED: PROVENTIL IH PRN (04:03)
[2019-03-09] MEDS: HumaLOG SUB-Q SCH ×4 (07:30→22:21)
[2019-03-09] MEDS: HumuLIN R SUB-Q SCH ×5 (07:30→17:22)
[2019-03-09] MEDS: PULMICORT IH SCH ×2 (09:30→21:44)
[2019-03-09] MEDS ORDERED: DILANTIN 300 MG PO SCH (10:00)
[2019-03-09] MEDS ORDERED: DRONABINOL 5 MG PO SCH (10:00)
[2019-03-09] MEDS ORDERED: KEPPRA PO SCH (10:00)
[2019-03-09] MEDS ORDERED: NON-FORMULARY (Triumeq 600-50-300 Mg Tablet 600 MG) PO SCH (10:00)
[2019-03-09] MEDS ORDERED: NON-FORMULARY (Calcium Carbonate [Calcium 600mg Tab] 600 MG) PO SCH (10:00)
[2019-03-09] MEDS ORDERED: LOVENOX SUB-Q SCH (10:00)
[2019-03-09] MEDS: ZIAGEN PO SCH (10:40)
[2019-03-09] MEDS: LOPRESSOR PO SCH ×2 (10:41→22:23)
[2019-03-09] MEDS: OSCAL PO SCH (10:41)
[2019-03-09] MEDS: K-DUR PO SCH ×2 (10:41→22:32)
[2019-03-09] MEDS: LASIX PO SCH (10:41)
[2019-03-09] MEDS: PROTONIX PO SCH (10:41)
[2019-03-09] MEDS: DILANTIN PO SCH (10:42)
[2019-03-09] MEDS: MARINOL PO SCH ×3 (10:44→22:42)
[2019-03-09] MEDS: COLACE PO SCH ×2 (10:44→22:33)
[2019-03-09] MEDS: EPIVIR PO SCH (10:44)
[2019-03-09] MEDS: PLAVIX PO SCH (10:45)
[2019-03-09] MEDS: TIVICAY PO SCH (10:46)
[2019-03-09] MEDS: SODIUM CHLORIDE FLUSH SYRINGE 10 ML IV SCH ×2 (10:46→22:34)
[2019-03-09] MEDS ORDERED: NON-FORMULARY (Levetiracetam [Keppra Tab] 750 MG) PO SCH (11:45)
--- NOTE | 2019-03-09 12:30 | Progress Note ---
Subjective Date of service: 03/09/19 Interval history: spoke to patient and the floor nurse supervisor inspection and testing, security and nurses aides... not medically appropriate to compelte neurology consut as he is not cooperative and belligerent... makes all types of threaths w/o justification in my view of outside details... clearly not in medical distress and no overt seizures reviewed records/ notes/ course in the ED... can not really make recommendation because patient not accepting medical advice... please review outside docum entation please note I was aware of background details before entering the room discussing with patient interesting only valid complaint is pain from lupus but no clear distress administrative disposition recommended Objective - Vital Sign Vital Signs - 12hr 03/09/19 03/09/19 03/09/19 01:13 02:13 05:21 Temperature Pulse Rate 61 62 Pulse Rate [ Throughout] Respiratory 18 18 Rate Respiratory Rate [ Throughout] Blood Pressure Blood Pressure 142/62 [Right] O2 Sat by Pulse 100 Oximetry 03/09/19 03/09/19 03/09/19 05:35 08:00 09:44 Temperature Pulse Rate 62 Pulse Rate [ 85 96 H Throughout] Respiratory Rate Respiratory 16 16 Rate [ Throughout] Blood Pressure Blood Pressure [Right] O2 Sat by Pulse Oximetry 03/09/19 12:00 Temperature 98.4 F Pulse Rate 72 Pulse Rate [ Throughout] Respiratory 20 Rate Respiratory Rate [ Throughout] Blood Pressure 123/74 Blood Pressure [Right] O2 Sat by Pulse 95 Oximetry - Laboratory Findings CBC and BMP: 03/08/19 22:39 03/08/19 22:39 Abnormal Lab Findings: Abnormal Labs 03/08/19 03/08/19 03/09/19 22:39 22:39 00:14 WBC 3.3 L MCHC 36 H Lymph % (Auto) 36.5 H [place] % (Auto) 14.8 H Seg Neutrophils # 1.5 L Carbon Dioxide 21 L Glucose 122 H POC Glucose Calcium 8.1 L Total Creatine Kinase 178 H 03/09/19 10:18 WBC MCHC Lymph % (Auto) [place] % (Auto) Seg Neutrophils # Carbon Dioxide Glucose POC Glucose 115 H Calcium Total Creatine Kinase
--- NOTE | 2019-03-09 12:51 | Event Note ---
Date: 03/09/19 Patient is 53 yo with HIV/AIDS, lupus , seizure disorder, presented with multiple syncopal episodes. I have seen and examined him. He has dogs with him in room and Admin is looking into that. Consulted Neurolgy.
[2019-03-09] MEDS ORDERED: KEPPRA PO ONE (13:00)
--- NOTE | 2019-03-09 13:07 | Vascular Lab Report ---
PROCEDURE: VL CAROTID DUPLEX BILAT TECHNIQUE: Carotid ultrasound. Degree of carotid stenosis calculated by indirect methods via the peak systolic velocities of the ICA and CCA and reference with the society of Radiologist and Ultrasound consensus conference radiology 2003. HISTORY: syncopal events x6 COMPARISONS: None currently available. FINDINGS: Catheter in the left neck limits evaluation. Note: Measurement of carotid stenosis is based on flow velocity values that correlate with the [place] Symptomatic Carotid Endarterectomy Trial (NASCET) based stenosis criteria using the internal carotid artery diameter as the denominator for stenosis calculation. RIGHT CCA, ICA, and ECA (cm/s): 92, 52, and 53. Ratio = 0.57. LEFT CCA, ICA, and ECA (cm/s): 91, 66, and 6 to. Ratio = 0.73. There is plaque in both carotids. Both vertebral arteries demonstrate antegrade flow. Normal spectral rhythm is identified. IMPRESSION: * No hemodynamically significant (>50%) stenosis noted based on the ratios, velocities, and color Do ppler images. This document is electronically signed by Suraj Paula MD., March 09 2019 01:05:09 PM ET
[2019-03-09] MEDS ORDERED: BANOPHEN ANTI-ITCH TP PRN (15:07)
[2019-03-09] MEDS: BENADRYL PO PRN (17:16)
[2019-03-09] MEDS ORDERED: PRAVACHOL PO SCH (22:00)
[2019-03-09] MEDS: PERCOCET 5/325 PO PRN (22:30)
[2019-03-09] MEDS: KEPPRA PO SCH (22:32)
[2019-03-10] MEDS: BENADRYL PO PRN (00:39)
[2019-03-10 02:28] LABS: Basophils % (Auto) 0.8 % (0.0-1.8); Eosinophils # (Auto) 0.1 K/mm3 (0.0-0.4); Eosinophils % (Auto) 3.2 % (0.0-4.3); Hematocrit 40.5 % (35.5-45.6); Hemoglobin 13.8 gm/dl (11.8-15.2); Lymphocytes # (Auto) 1.3 K/mm3 (1.2-5.4); Lymphocytes % (Auto) 35.2 % (13.4-35.0); Mean Corpuscular HGB Conc 34 % (32-34); Mean Corpuscular Volume 93 fl (84-94); Monocytes # (Auto) 0.5 K/mm3 (0.0-0.8); Monocytes % (Auto) 12.4 % (0.0-7.3); Platelet Count 188 K/mm3 (140-440); Red Blood Count 4.38 M/mm3 (3.65-5.03); Red Cell Distribution Width 13.8 % (13.2-15.2)
[2019-03-10 03:07] LABS: BUN/Creatinine Ratio 13; Blood Urea Nitrogen 14 mg/dL (9-20); Calcium 8.7 mg/dL (8.4-10.2); Hemolysis Index 22
[2019-03-10 04:41] LABS: Chol/HDL Ratio 3.02 %; HDL Cholesterol 41 mg/dL (40-59); LDL Cholesterol,Direct 77 mg/dL (50-130)
--- NOTE | 2019-03-10 08:30 | Progress Note ---
Subjective Date of service: 03/10/19 Interval history: I spoke to Dr. Maddox yesterday and advised him of the nature of the patient's state of uncooperation with nursing staff mesdical issue he was very evasive about the nature of what caused the maximino hole in skull I suspect trauma to lizzy and this was ventricular shunt or pressure monitor... he would not provide info this accounts for his seizures I went over his list of meds and there are very toxic amounts of antipsychotics and anticonvulsant drugs listed plus he self manages seizures with Ativan and prn Xanax clearly he is not appropriate and outside boundries for counseling etc. recommend mental health worker deal with his communication as he is very argumentative Objective - Vital Sign Vital Signs - 12hr 03/09/19 03/09/19 03/09/19 21:00 22:00 22:23 Temperature Pulse Rate 70 78 Pulse Rate [ 74 From Monitor] Respiratory 20 Rate Blood Pressure 109/70 O2 Sat by Pulse 97 Oximetry 03/10/19 03/10/19 03/10/19 00:09 05:00 05:11 Temperature 98.5 F 98.1 F Pulse Rate 68 61 61 Pulse Rate [ From Monitor] Respiratory 18 18 Rate Blood Pressure 102/64 84/43 O2 Sat by Pulse 98 97 Oximetry - Laboratory Findings CBC and BMP: 03/10/19 02:10 03/10/19 02:10 Abnormal Lab Findings: Abnormal Labs 03/08/19 03/08/19 03/09/19 22:39 22:39 00:14 WBC 3.3 L MCHC 36 H Lymph % (Auto) 36.5 H [place] % (Auto) 14.8 H Seg Neutrophils # 1.5 L Carbon Dioxide 21 L Glucose 122 H POC Glucose Calcium 8.1 L Total Creatine Kinase 178 H 03/09/19 03/09/19 03/10/19 10:18 16:55 02:10 WBC 3.7 L MCHC Lymph % (Auto) 35.2 H [place] % (Auto) 12.4 H Seg Neutrophils # Carbon Dioxide Glucose POC Glucose 115 H 114 H Calcium Total Creatine Kinase
[2019-03-10] MEDS: PULMICORT IH SCH (09:16)
--- NOTE | 2019-03-10 11:29 | Consultation ---
HISTORY OF PRESENT ILLNESS: A 53-year-old black male that is admitted to [facility]. Please see the Emergency Room note. This patient was admitted because of dizziness, although I do note he has been on profoundly high doses of Abilify ____ mg daily as well as taking Xanax, Keppra, Dilantin, and oxycodone. He has been also taking meclizine and BuSpar. He complained of being dizzy, but in noting his past medical history he has been on a great many medications including Remeron, prednisone, doxepin, valproic acid, all of which I expect would be associated with dizziness. The patient's history would indicate that he has issue with polypharmacy. His vital signs were all stable, pulse rate was 76, blood pressure was 110/80. His calcium was slightly low. His potassium was 3.3. Reviewing Dr. Haines's note from the Emergency Room, CT scan of the head was negative. The patient was thought to have a syncope and possibly Sanya's paralysis. PHYSICAL EXAMINATION: NEUROLOGIC: On my examination, the patient is fully alert. He has full speech. Face is symmetrical. Motor tone is normal. Library Technician strength is unremarkable. Unfortunately, the patient is agitated and very noncooperative towards the nursing staff, security, nursing supervisor sawmill, other care providers. There is a social disruption being created by the patient and/or family members, which is being dealt with administratively. The patient does not seem cooperative at all in discussing neurological aspects of his case. Interestingly, he did not reveal a history of being on seizure medicines which certainly could be contributing to his vertigo. I do not have any further recommendations in the case at this point. I have reviewed over his CT scan of the head and I do note that his sinuses appear normal. Mastoids are clear of any fluid. He has evidence of very mild brain atrophy bilaterally because the temporal horns are prominent more so on the right than the left cerebral hemisphere indicating some type of prior insult in the right brain and certainly he may be having seizures as a result of this process. 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 This may be responsible for area of focal seizures. I will further ask questions about that issue which is happened back. JOB# [id number] DEANNE/JUDY
[2019-03-10] MEDS: PERCOCET 5/325 PO PRN (12:20)
[2019-03-10] MEDS: LASIX PO SCH (12:20)
[2019-03-10] MEDS: DILANTIN PO SCH (12:21)
[2019-03-10] MEDS: KEPPRA PO SCH (12:23)
[2019-03-10] MEDS: OSCAL PO SCH (12:25)
[2019-03-10] MEDS: PROTONIX PO SCH (12:26)
[2019-03-10] MEDS: PLAVIX PO SCH (12:26)
[2019-03-10] MEDS: K-DUR PO SCH (12:26)
[2019-03-10] MEDS: HumuLIN R SUB-Q SCH ×2 (12:29→17:37)
[2019-03-10] MEDS: HumaLOG SUB-Q SCH ×2 (12:29→15:30)
[2019-03-10] MEDS: SODIUM CHLORIDE FLUSH SYRINGE 10 ML IV SCH (12:30)
[2019-03-10] MEDS: COLACE PO SCH (12:30)
[2019-03-10 13:59] VITALS: BP 120/73
[2019-03-10] MEDS: TIVICAY PO SCH (15:29)
[2019-03-10] MEDS: EPIVIR PO SCH (15:30)
[2019-03-10] MEDS: ZIAGEN PO SCH (15:30)
[2019-03-10] MEDS: MARINOL PO SCH (15:41)
--- NOTE | 2019-03-10 16:19 | Discharge Summary ---
Providers - Providers Date of Admission: 03/09/19 02:45 Date of discharge: 03/22/19 Attending physician: DUSTIN OSWALD 03/09/19 02:49 Consult to Dietitian/Nutrition [CONS] Routine Physician Instructions: Reason For Exam: Reason for Consult: Nutrition Recommendations Reason for Consult: Malnutrition Occupational Therapy Evaluate and Treat [CONS] Routine Comment: Reason For Exam: Neuro deficits Physical Therapy Evaluation and Treat [CONS] Routine Comment: Reason For Exam: Neuro deficits 03/09/19 11:31 Consult to Physician [CONS] Routine Comment: Consulting Provider: YURY MARTINEZ Physician Instructions: Reason For Exam: Syncope, dizziness,seizure disorder Primary care physician: VY LEE Hospitalization Condition: Fair Hospital course: Patient is 53-year-old male who is an ongoing smoker with history of chronic pain, diabetes, cerebral palsy, CHF, asthma, SLE, hypertension, epilepsy/seiz ure, 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 He presented to [facility] ED via EMS with complaints of syncopal episodes and dizziness. he stated that he has had 6 syncopal episodes over the past [address] head negative for acute stroke or hemorrhage; and is stable compared to study done on 12/21/18. Troponin negative 1. He was admitted, evaluated by Neurology. Echo was unremarkable. patient had 2 dogs with him in room. One of the dogs left the room and was running on the hallway in the telemetry floor. Security was called and Risk management was consulted. The patient was told that the dogs have to leave the hospital Patient got upset and decided to sign on left AGAINST MEDICAL ADVICE. Total time spent on discharge, 32 mins Disposition: [id number] LEFT AGAINST MED ADVICE - Discharge Diagnoses (1) Vasovagal syncope Status: Acute (2) Left against medical advice Status: Acute (3) CAD (coronary artery disease) Status: Chronic Qualifiers: Coronary Disease-Associated Artery/Lesion type: bypass graft [place] vs. transplanted heart: ione heart Associated angina: without angina Qualified Code(s): I25.810 - Atherosclerosis of coronary artery bypass graft(s) without angina pectoris (4) Cerebral palsy Status: Chronic (5) Diabetes Status: Acute (6) HIV (human immunodeficiency virus infection) Status: Acute (7) HIV (human immunodeficiency virus infection) Status: Chronic (8) HTN (hypertension) Status: Acute Qualifiers: Hypertension type: essential hypertension Qualified Code(s): I10 - Essential (primary) hypertension (9) Hx of CABG Status: Chronic (10) Hypertension Status: Chronic Qualifiers: Hypertension type: essential hypertension Qualified Code(s): I10 - Essential (primary) hypertension (11) Lupus (systemic lupus erythematosus) Status: Chronic Qualifiers: Systemic lupus erythematosus organ involvement: other (12) Syncope Status: Acute (13) Type 2 diabetes mellitus Status: Chronic Core Measure Documentation - Palliative Care Palliative Care/ Comfort Measures: Not Applicable - Core Measures Any of the following diagnoses?: none Exam - Constitutional Vitals: Temp Pulse Resp BP Pulse Ox 98.1 F 69 18 120/73 97 03/10/19 12:15 03/10/19 09:16 03/10/19 12:15 03/10/19 12:15 03/10/19 05:11 Plan Follow up with: VY LEE MD [Primary Care Provider] - 3-5 Days
== END 2019-03-10 15:50 | disposition left against medical advice (07) ==
LOC: ED 21:57 → INTOOBSV 03-09 02:45 → 4A 03-09 02:45
PROVIDERS: ADMIT Internal Medicine; ATTEND Internal Medicine
DX: R55 Syncope and collapse (principal); I63.9 Cerebral infarction, unspecified; B20 Human immunodeficiency virus [HIV] disease; D70.9 Neutropenia, unspecified; E11.9 Type 2 diabetes mellitus without complications; I11.0 Hypertensive heart disease with heart failure; I50.9 Heart failure, unspecified; G80.9 Cerebral palsy, unspecified; Z87.39 Personal history of other diseases of the musculoskeletal system and connective tissue; G89.29 Other chronic pain; J45.909 Unspecified asthma, uncomplicated; G40.909 Epilepsy, unspecified, not intractable, without status epilepticus; F17.210 Nicotine dependence, cigarettes, uncomplicated; Z79.899 Other long term (current) drug therapy; I25.10 Atherosclerotic heart disease of native coronary artery without angina pectoris; Z95.1 Presence of aortocoronary bypass graft
CPT/HCPCS: 36415; 70450; 80048; 80053; 80061; 82550; 82553; 82962; 83036; 83735; 84484; 85025; 85610; 85730; 93005; 93010; 93306; 93880; 94640; 96372; 96374; 99284; 99406; A9270; G0378; J1200; J1885; Q0167; J1815

== ENCOUNTER 2019-05-08 16:44 | Inpatient (IN) | payer OTHER, MEDICARE ==
--- NOTE | 2019-05-08 16:48 | Emergency Department Report ---
Blank Doc - Documentation Documentation: This is a 53-year-old male that presents with left sided weakness and slurred speech. HX of stroke. This initial assessment/diagnostic orders/clinical plan/treatment(s) is/are subject to change based on patient's health status, clinical progression and re- assessment by fellow clinical providers in the ED. Further treatment and workup at subsequent clinical providers discretion. Patient/guardians urged not to elope from the ED as their condition may be serious if not clinically assessed and managed. Initial orders include: 1- Patient sent to MAIN ED for further evaluation and treatment 2- stroke protocol initiated
--- NOTE | 2019-05-08 16:56 | Emergency Department Report ---
ED Neuro Deficit HPI - General Chief Complaint: Neuro Symptoms/Deficit Stated Complaint: POSS STROKE/MOUTH DROP Time Seen by Provider: 05/08/19 16:56 Source: patient Mode of arrival: Ambulatory Limitations: Physical Limitation - History of Present Illness Initial Comments: Patient is a 53-year-old male presents emergency room with sided facial droop and left-sided weakness. Patient states his last known well time was last night at 11:30. Patient states he went to sleep last night normal and woke up with these symptoms. Patient denies headache. Patient denies blurred vision. Patient denies chest pain shortness of breath. -: Sudden Presenting Symptoms: Present: Weak/Paralyzed One Side, Facial Droop/Numbness History of same: No Place: home Severity: severe Quality: weak Improves With: none Worsens With: none On Anticoagulants: No Associated Symptoms: weakness. denies: confusion, chest pain, cough, diaphoresis, fever/chills, headaches, loss of appetite, malise, nausea/vomiting, vertigo, seizures, shortness of breath, syncope Treatments Prior to Arrival: none - Related Data Home Medications: Home Medications Medication Instructions Recorded Confirmed Last Taken Clopidogrel Bisulfate [Plavix] 75 mg PO DAILY 09/21/18 05/08/19 12/21/18 Furosemide [Lasix] 40 mg PO DAILY 09/21/18 05/08/19 12/21/18 Colace CAP 1 cap PO DAILY 12/23/18 05/08/19 Unknown ALBUTEROL NEB's 1 each IH PRN PRN 03/09/19 05/08/19 Unknown Advair Diskus 500-50 mcg 1 puff IH DAILY 03/09/19 05/08/19 Unknown Calcium Carbonate [Calcium 600MG 600 mg PO DAILY 03/09/19 05/08/19 Unknown TAB] Combivent Inhaler 1 puff IH DAILY 03/09/19 05/08/19 Unknown Dronabinol [Marinol] 10 mg PO TID 03/09/19 05/08/19 Unknown Insulin Aspart [NovoLOG Flexpen] 0 units SQ AC 03/09/19 05/08/19 Unknown Insulin NPH Hum/Reg Insulin Hm 0 units SQ BID 03/09/19 05/08/19 Unknown [Novolin 70-30 100 Unit/ml Vial] Metoprolol [Lopressor] 100 mg PO BID 03/09/19 05/08/19 Unknown Oxycodone HCl/Acetaminophen 1 each PO Q6HR PRN 03/09/19 05/08/19 Unknown [Percocet 10/325 mg] Potassium Chloride [K-Dur] 20 meq PO BID 03/09/19 05/08/19 Unknown Tapentadol HCl [Nucynta] 75 mg PO DAILY 03/09/19 05/08/19 Unknown Triumeq 600-50-300 mg Tablet 1 each PO DAILY 03/09/19 05/08/19 Unknown diphenhydrAMINE [Benadryl CAP] 50 mg PO Q8HR PRN 03/09/19 05/08/19 Unknown levETIRAcetam [Keppra TAB] 750 mg PO BID 03/09/19 05/08/19 Unknown Previous Rx's Medication Instructions Recorded Last Taken Type Pantoprazole [Protonix TAB] 40 mg PO DAILY #30 tablet 12/25/18 Unknown Rx Allergies/Adverse Reactions: Allergies Allergy/AdvReac Type Severity Reaction Status Date / Time metoclopramide [From Reglan] Allergy Anaphylaxis Verified 05/08/19 16:45 prochlorperazine Allergy Anaphylaxis Verified 05/08/19 16:45 [From Compazine] promethazine [From Phenergan] Allergy Anaphylaxis Verified 05/08/19 16:45 ED Review of Systems ROS: Stated complaint: POSS STROKE/MOUTH DROP Other details as noted in HPI Constitutional: weakness. denies: chills, fever Eyes: denies: eye pain, eye discharge, vision change ENT: denies: ear pain, throat pain Respiratory: denies: cough, shortness of breath, wheezing Cardiovascular: denies: chest pain, palpitations Endocrine: no symptoms reported Gastrointestinal: denies: abdominal pain, nausea, diarrhea Genitourinary: denies: urgency, dysuria Musculoskeletal: denies: back pain, joint swelling, arthralgia Skin: denies: rash, lesions Neurological: weakness. denies: headache, paresthesias Psychiatric: denies: anxiety, depression Hematological/Lymphatic: denies: easy bleeding, easy bruising ED Past Medical Hx - Past Medical History Previous Medical History?: Yes Hx Hypertension: Yes Hx CVA: Yes (left sided weakness) Hx Heart Attack/AMI: Yes (2019) Hx Congestive Heart Failure: Yes Hx Diabetes: Yes Hx Seizures: Yes Hx Psychiatric Treatment: Yes (PTSD,depression) Hx Asthma: Yes Hx COPD: Yes Hx HIV: Yes Additional medical history: Cerebral palsy - Surgical History Past Surgical History?: Yes Additional Surgical History: CABG - Family History Family history: no significant - Social History Smoking Status: Current Every Day Smoker Substance Use Type: None - Medications Home Medications: Home Medications Medication Instructions Recorded Confirmed Last Taken Type Clopidogrel Bisulfate [Plavix] 75 mg PO DAILY 09/21/18 05/08/19 12/21/18 History Furosemide [Lasix] 40 mg PO DAILY 09/21/18 05/08/19 12/21/18 History Colace CAP 1 cap PO DAILY 12/23/18 05/08/19 Unknown History Pantoprazole [Protonix TAB] 40 mg PO DAILY #30 tablet 12/25/18 05/08/19 Unknown Rx ALBUTEROL NEB's 1 each IH PRN PRN 03/09/19 05/08/19 Unknown History Advair Diskus 500-50 mcg 1 puff IH DAILY 03/09/19 05/08/19 Unknown History Calcium Carbonate [Calcium 600MG 600 mg PO DAILY 03/09/19 05/08/19 Unknown History TAB] Combivent Inhaler 1 puff IH DAILY 03/09/19 05/08/19 Unknown History Dronabinol [Marinol] 10 mg PO TID 03/09/19 05/08/19 Unknown History Insulin Aspart [NovoLOG Flexpen] 0 units SQ AC 03/09/19 05/08/19 Unknown History Insulin NPH Hum/Reg Insulin Hm 0 units SQ BID 03/09/19 05/08/19 Unknown History [Novolin 70-30 100 Unit/ml Vial] Metoprolol [Lopressor] 100 mg PO BID 03/09/19 05/08/19 Unknown History Oxycodone HCl/Acetaminophen 1 each PO Q6HR PRN 03/09/19 05/08/19 Unknown History [Percocet 10/325 mg] Potassium Chloride [K-Dur] 20 meq PO BID 03/09/19 05/08/19 Unknown History Tapentadol HCl [Nucynta] 75 mg PO DAILY 03/09/19 05/08/19 Unknown History Triumeq 600-50-300 mg Tablet 1 each PO DAILY 03/09/19 05/08/19 Unknown History diphenhydrAMINE [Benadryl CAP] 50 mg PO Q8HR PRN 03/09/19 05/08/19 Unknown History levETIRAcetam [Keppra TAB] 750 mg PO BID 03/09/19 05/08/19 Unknown History ED Neuro Physical Exam - General Limitations: Physical Limitation General appearance: alert, in no apparent distress Suspected Stroke: Yes - Head Head exam: Present: atraumatic, normocephalic - Eye Eye exam: Present: normal appearance - ENT ENT exam: Present: mucous membranes moist - Neck Neck exam: Present: normal inspection - Respiratory Respiratory exam: Present: normal lung sounds bilaterally. Absent: respiratory distress - Cardiovascular Cardiovascular Exam: Present: regular rate, normal rhythm. Absent: systolic murmur, diastolic murmur, rubs, gallop - GI/Abdominal GI/Abdominal exam: Present: soft, normal bowel sounds - Rectal Rectal exam: Present: deferred - Extremities Exam Extremities exam: Present: normal inspection - Back Exam Back exam: Present: normal inspection - Neurological Exam Neurological exam: Present: alert, oriented X3 - NIHSS Assessment Interval: Baseline 1a. Level of Consciousness: alert/keenly responsive 1b. LOC Questions: answers both correctly 1c. LOC Commands: performs tasks correctly 2. Best Gaze: normal 3. Visual: no visual loss 4. Facial Palsy: normal symmetrical movement 5b. Motor Arm Right: no drift 5a. Motor Arm Left: some gravity effort 6a. Motor Leg Left: some gravity effort 6b. Motor Leg Right: some gravity effort 7. Limb Ataxia: absent 8. Sensory: mild/moderate sensory loss 9. Best Language: no aphasia 10. Dysarthria: normal 11. Extinction/Inattention: no abnormality Total Score: 7 Stroke Severity: Moderate Stroke - Psychiatric Psychiatric exam: Present: normal affect, normal mood - Skin Skin exam: Present: warm, dry, intact, normal color. Absent: rash ED Course Vital Signs 05/08/19 05/08/19 05/08/19 17:04 17:21 17:22 Temperature 97.7 F Pulse Rate 78 Respiratory 20 20 Rate Blood Pressure Blood Pressure 118/70 [Right] O2 Sat by Pulse 95 96 96 Oximetry 05/08/19 05/08/19 05/08/19 18:06 19:45 20:21 Temperature Pulse Rate 76 88 Respiratory 14 25 H Rate Blood Pressure 130/81 97/56 Blood Pressure 109/82 [Right] O2 Sat by Pulse 97 95 Oximetry 05/08/19 05/08/19 20:31 21:23 Temperature Pulse Rate Respiratory Rate Blood Pressure 97/56 115/89 Blood Pressure [Right] O2 Sat by Pulse 98 Oximetry - Reevaluation(s) Reevaluation #1: initial eval done. code stroke called. neuro consulted. 05/08/19 16:56 Reevaluation #2: I discussed all results with patient. I discussed plan of care with patient. Patient will be admitted to the hospital service. Patient agrees plan of care. 05/08/19 18:43 - Consultations Consultation #1: neurology consulted. 05/08/19 16:43 Consultation #2: Hospitalists consulted. Hospitalist to admit pt. 05/08/19 18:44 - Lab Data Result diagrams: 05/08/19 16:59 05/08/19 16:59 Lab Results 05/08/19 05/08/19 05/08/19 Range/Units 16:56 16:59 16:59 WBC 5.1 (4.5-11.0) K/mm3 RBC 4.54 (3.65-5.03) M/mm3 Hgb 14.5 (11.8-15.2) gm/dl Hct 41.2 (35.5-45.6) % MCV 91 (84-94) fl MCH 32 (28-32) pg MCHC 35 H (32-34) % RDW 13.8 (13.2-15.2) % Plt Count 218 (140-440) K/mm3 Lymph % (Auto) 43.2 H (13.4-35.0) % [place] % (Auto) 11.0 H (0.0-7.3) % Eos % (Auto) 3.1 (0.0-4.3) % Baso % (Auto) 1.0 (0.0-1.8) % Lymph # 2.2 (1.2-5.4) K/mm3 [place] # 0.6 (0.0-0.8) K/mm3 Eos # 0.2 (0.0-0.4) K/mm3 Baso # 0.1 (0.0-0.1) K/mm3 Seg Neutrophils % 41.7 (40.0-70.0) % Seg Neutrophils # 2.1 (1.8-7.7) K/mm3 PT 12.4 (12.2-14.9) Sec. INR 0.95 (0.87-1.13) APTT 24.4 (24.2-36.6) Sec. Thrombin Time 16.6 (15.1-19.6) Sec. Sodium (137-145) mmol/L Potassium (3.6-5.0) mmol/L Chloride (98-107) mmol/L Carbon Dioxide (22-30) mmol/L Anion Gap mmol/L BUN (9-20) mg/dL Creatinine (0.8-1.5) mg/dL Estimated GFR ml/min BUN/Creatinine Ratio % Glucose (75-100) mg/dL POC Glucose 98 (70-105) Calcium (8.4-10.2) mg/dL Total Bilirubin (0.1-1.2) mg/dL AST (5-40) units/L ALT (7-56) units/L Alkaline Phosphatase (35-129) units/L Total Creatine Kinase (55-170) units/L CK-MB (CK-2) (0.0-4.0) ng/mL CK-MB (CK-2) Rel Index (0-4) Troponin T (0.00-0.029) ng/mL Total Protein (6.3-8.2) g/dL Albumin (3.9-5) g/dL Albumin/Globulin Ratio % 05/08/19 05/08/19 Range/Units 16:59 17:10 WBC (4.5-11.0) K/mm3 RBC (3.65-5.03) M/mm3 Hgb (11.8-15.2) gm/dl Hct (35.5-45.6) % MCV (84-94) fl MCH (28-32) pg MCHC (32-34) % RDW (13.2-15.2) % Plt Count (140-440) K/mm3 Lymph % (Auto) (13.4-35.0) % [place] % (Auto) (0.0-7.3) % Eos % (Auto) (0.0-4.3) % Baso % (Auto) (0.0-1.8) % Lymph # (1.2-5.4) K/mm3 [place] # (0.0-0.8) K/mm3 Eos # (0.0-0.4) K/mm3 Baso # (0.0-0.1) K/mm3 Seg Neutrophils % (40.0-70.0) % Seg Neutrophils # (1.8-7.7) K/mm3 PT (12.2-14.9) Sec. INR (0.87-1.13) APTT (24.2-36.6) Sec. Thrombin Time (15.1-19.6) Sec. Sodium 138 (137-145) mmol/L Potassium 4.7 (3.6-5.0) mmol/L Chloride 101.2 (98-107) mmol/L Carbon Dioxide 24 (22-30) mmol/L Anion Gap 18 mmol/L BUN 13 (9-20) mg/dL Creatinine 0.8 (0.8-1.5) mg/dL Estimated GFR > 60 ml/min BUN/Creatinine Ratio 16 % Glucose 99 (75-100) mg/dL POC Glucose 101 (70-105) Calcium 9.2 (8.4-10.2) mg/dL Total Bilirubin 0.50 (0.1-1.2) mg/dL AST 37 (5-40) units/L ALT 23 (7-56) units/L Alkaline Phosphatase 104 (35-129) units/L Total Creatine Kinase 1081 H (55-170) units/L CK-MB (CK-2) 3.1 (0.0-4.0) ng/mL CK-MB (CK-2) Rel Index 0.2 (0-4) Troponin T < 0.010 (0.00-0.029) ng/mL Total Protein 8.5 H (6.3-8.2) g/dL Albumin 4.1 (3.9-5) g/dL Albumin/Globulin Ratio 0.9 % - EKG Data -: EKG Interpreted by Ia EKG shows normal: sinus rhythm, axis, intervals, QRS complexes, ST-T waves Rate: normal - Radiology Data Radiology results: report reviewed CT BRAIN: 05/08/2019 INDICATION / CLINICAL INFORMATION: MAIN: CODE STROKE . COMPARISON: 03/09/2019 FINDINGS: BRAIN/INTRACRANIAL STRUCTURES: Unenhanced CT images of the brain were obtained and compared to the prior exam from 03/09/2019. There has been no change. Again seen is relative volume loss of the right cerebral hemisphere. Right greater than left ventricular megaly is present, without change. There is no evidence of acute ischemic injury, hemorrhage, or mass. There are no abnormal extra- axial fluid collections. EXTRACRANIAL STRUCTURES: Unremarkable. IMPRESSION: No acute abnormality. No change when compared to 03/09/2019. Stable asymmetric cerebral atrophy. - Medical Decision Making Patient is a 53-year-old male presents [facility] with left-sided weakness. Patient also complained of left facial droop. Patient saw the neurologist immediately upon arrival. Patient had a head CT which is negative for acute findings. Patient's labs unremarkable. Patient admitted to the hospitalist service for further evaluation treatment and subacute stroke workup. Patient noted to have left-sided hemiparesis. Neurology recommends admission for subacute workup.. Patient's labs unremarkable except for elevated CK and UDS positive for cocaine - Differential Diagnosis left-sided weakness. CVA. Encephalopathy. Critical Care Time: Yes Critical care attestation.: If time is entered above; I have spent that time in minutes in the direct care of this critically ill patient, excluding procedure time. Critical Care Time: 45 minutes ED Disposition Clinical Impression: Left-sided weakness, Facial droop Hemiparesis Qualifiers: Hemiparesis etiology: unspecified Hemiparesis laterality: unspecified Qualified Code(s): G81.90 - Hemiplegia, unspecified affecting unspecified side Disposition: OP ADMIT IP TO THIS HOSP Is pt being admited?: Yes Does the pt Need Aspirin: No Condition: Critical Time of Disposition: 19:43
[2019-05-08 17:07] LABS: Basophils # (Auto) 0.1 K/mm3 (0.0-0.1); Eosinophils # (Auto) 0.2 K/mm3 (0.0-0.4); Eosinophils % (Auto) 3.1 % (0.0-4.3); Hematocrit 41.2 % (35.5-45.6); Hemoglobin 14.5 gm/dl (11.8-15.2); Lymphocytes # (Auto) 2.2 K/mm3 (1.2-5.4); Lymphocytes % (Auto) 43.2 % (13.4-35.0); Mean Corpuscular HGB Conc 35 % (32-34); Mean Corpuscular Volume 91 fl (84-94); Monocytes # (Auto) 0.6 K/mm3 (0.0-0.8); Red Blood Count 4.54 M/mm3 (3.65-5.03); Red Cell Distribution Width 13.8 % (13.2-15.2)
[2019-05-08 17:17] LABS: Platelet Count 218 K/mm3 (140-440)
--- NOTE | 2019-05-08 17:19 | Emergency Department Report ---
ED Neuro Deficit HPI - General Chief Complaint: Neuro Symptoms/Deficit Stated Complaint: POSS STROKE/MOUTH DROP Time Seen by Provider: 05/08/19 16:56 Source: patient Mode of arrival: Ambulatory Limitations: Physical Limitation - History of Present Illness Initial Comments: [employer] [facility] Date of Service: 05/08/2019 16:53:07 Impression: Right Hemispheric Mechanism of Stroke: Not Clear Metrics: Last Known Well: 05/07/2019 23:00:00 [employer] Notification Time: 05/08/2019 16:51:35 Arrival Time: 05/08/2019 16:44:00 Stamp Time: 05/08/2019 16:53:07 Time First Login Attempt: 05/08/2019 16:55:22 Video Start Time: 05/08/2019 16:55:22 Symptoms: left leg weakness NIHSS Start Assessment Time: 05/08/2019 17:03:00 Patient is not a candidate for tPA. Patient was not deemed candidate for tPA thrombolytics because of Last Well Known above 4.5 hours. Video End Time: 05/08/2019 17:14:24 CT head showed no acute hemorrhage or acute core infarct. CT head was reviewed. Advanced imaging was not obtained as the presentation was not suggestive of Large Vessel Occlusive Disease. ER physician notified of the decision on thrombolytics management. Comments: Would consider subcortical right hemispheric infarct vs post ictal weakness vs c spine lesion. Our recommendations are outlined below. Recommendations: Initiate Aspirin 81 MG Daily Recommended Scan: MRI Head Without Contrast Lipid Panel to Be Obtained, if Not Done in the Last Three Months Therapies: Physical Therapy, Occupational Therapy, Speech Therapy Assessment When Applicable Dysphaghia Screen: Swallow Evaluation, Bedside DVT prophylaxis: SCDs, Pneumatic Compression Disposition: Follow up with Teleneurology Follow up Sign Out: Discussed with Emergency Department Provider History of Present Illness: Patient is a 53 years old Male. Patient was brought by EMS for symptoms of left leg weakness 53 yo M with history of cerebral palsy and left leg weakness who is presenting with worsening left sided weakness. Patient has a history of cerebral palsy with weakness on the left leg and when he woke up from a nap it is worse. He now has left hand weakness that is new. He states that the last time his strength was at his baseline was when he went to bed last night at 23:00 CT head showed no acute hemorrhage or acute core infarct. CT head was reviewed. Examination: 1A: Level of Consciousness - Alert; keenly responsive + 0 1B: Ask Month and Age - 1 Question Right + 1 1C: Blink Eyes & Squeeze Hands - Performs Both Tasks + 0 2: Test Horizontal Extraocular Movements - Normal + 0 3: Test Visual Cam - No Visual Loss + 0 4: Test Facial Palsy (Use Grimace if Obtunded) - Normal symmetry + 0 5A: Test Left Arm Motor Drift - Some Effort Against [place] + 2 5B: Test Right Arm Motor Drift - No Effort Against [place] + 3 6A: Test Left Leg Motor Drift - No Movement + 4 6B: Test Right Leg Motor Drift - No Drift for 5 Seconds + 0 7: Test Limb Ataxia (FNF/Heel-Love) - No Ataxia + 0 8: Test Sensation - Mild-Moderate Loss: Less Sharp/More Dull + 1 9: Test Language/Aphasia - Normal; No aphasia + 0 10: Test Dysarthria - Normal + 0 11: Test Extinction/Inattention - No abnormality + 0 NIHSS Score: 11 Patient was informed the Neurology Consult would happen via TeleHealth consult by way of interactive audio and video telecommunications and consented to receiving care in this manner. Due to the immediate potential for life-threatening deterioration due to underlying acute neurologic illness, I spent 35 minutes providing critical care. This time includes time for face to face visit via telemedicine, review of medical records, imaging studies and discussion of findings with providers, the patient and/or family. Dr Aleida Landrum [employer] History of same: No Place: home Severity: severe Quality: weak Improves With: none Worsens With: none On Anticoagulants: No Treatments Prior to Arrival: none - Related Data Home Medications: Home Medications Medication Instructions Recorded Confirmed Last Taken Clopidogrel Bisulfate [Plavix] 75 mg PO DAILY 09/21/18 12/26/18 12/21/18 Furosemide [Lasix] 40 mg PO DAILY 1212/26/18 12/21/18 Colace CAP 1 cap PO Q12HR 12/23/18 12/26/18 Unknown ALBUTEROL NEB's 03/09/19 Unknown Advair Diskus 500-50 mcg 03/09/19 Unknown Calcium Carbonate [Calcium 600MG 600 mg PO 03/09/19 Unknown TAB] Combivent Inhaler 03/09/19 Unknown Dronabinol [Marinol] 5 mg PO BID 03/09/19 03/09/19 Unknown Insulin Aspart [NovoLOG Flexpen] 0 units SQ AC 03/09/19 03/09/19 Unknown Insulin NPH Hum/Reg Insulin Hm 03/09/19 Unknown [Novolin 70-30 100 Unit/ml Vial] Metoprolol [Lopressor] 100 mg PO BID 03/09/19 03/09/19 Unknown Oxycodone HCl/Acetaminophen 1 each PO Q6HR PRN 03/09/19 03/09/19 Unknown [Percocet 10/325 mg] Potassium Chloride [K-Dur] 20 meq PO BID 03/09/19 03/09/19 Unknown Tapentadol HCl [Nucynta] 75 mg PO 03/09/19 Unknown Triumeq 600-50-300 mg Tablet 03/09/19 Unknown diphenhydrAMINE [Benadryl CAP] 50 mg PO Q8HR PRN 03/09/19 03/09/19 Unknown levETIRAcetam [Keppra TAB] 750 mg PO BID 03/09/19 03/09/19 Unknown Previous Rx's Medication Instructions Recorded Last Taken Type Pantoprazole [Protonix TAB] 40 mg PO DAILY #30 tablet 12/25/18 Unknown Rx Allergies/Adverse Reactions: Allergies Allergy/AdvReac Type Severity Reaction Status Date / Time metoclopramide [From Reglan] Allergy Anaphylaxis Verified 05/08/19 16:45 prochlorperazine Allergy Anaphylaxis Verified 05/08/19 16:45 [From Compazine] promethazine [From Phenergan] Allergy Anaphylaxis Verified 05/08/19 16:45 ED Review of Systems ROS: Stated complaint: POSS STROKE/MOUTH DROP Other details as noted in HPI Constitutional: weakness. denies: chills, fever Eyes: denies: eye pain, eye discharge, vision change ENT: denies: ear pain, throat pain Respiratory: denies: cough, shortness of breath, wheezing Cardiovascular: denies: chest pain, palpitations Endocrine: no symptoms reported Gastrointestinal: denies: abdominal pain, nausea, diarrhea Genitourinary: denies: urgency, dysuria Musculoskeletal: denies: back pain, joint swelling, arthralgia Skin: denies: rash, lesions Neurological: weakness. denies: headache, paresthesias Psychiatric: denies: anxiety, depression Hematological/Lymphatic: denies: easy bleeding, easy bruising ED Past Medical Hx - Past Medical History Previous Medical History?: Yes Hx Hypertension: Yes Hx CVA: Yes (left sided weakness) Hx Heart Attack/AMI: Yes (2019) Hx Congestive Heart Failure: Yes Hx Diabetes: Yes Hx Seizures: Yes Hx Psychiatric Treatment: Yes (PTSD,depression) Hx Asthma: Yes Hx COPD: Yes Hx HIV: Yes Additional medical history: Cerebral palsy - Surgical History Past Surgical History?: Yes Additional Surgical History: CABG - Social History Smoking Status: Current Every Day Smoker Substance Use Type: None - Medications Home Medications: Home Medications Medication Instructions Recorded Confirmed Last Taken Type Clopidogrel Bisulfate [Plavix] 75 mg PO DAILY 09/21/18 12/26/18 12/21/18 History Furosemide [Lasix] 40 mg PO DAILY 09/21/18 12/26/18 12/21/18 History Colace CAP 1 cap PO Q12HR 12/23/18 12/26/18 Unknown History Pantoprazole [Protonix TAB] 40 mg PO DAILY #30 tablet 12/25/18 03/10/19 Unknown Rx ALBUTEROL NEB's 03/09/19 Unknown History Advair Diskus 500-50 mcg 03/09/19 Unknown History Calcium Carbonate [Calcium 600MG 600 mg PO 03/09/19 Unknown History TAB] Combivent Inhaler 03/09/19 Unknown History Dronabinol [Marinol] 5 mg PO BID 03/09/19 03/09/19 Unknown History Insulin Aspart [NovoLOG Flexpen] 0 units SQ AC 03/09/19 03/09/19 Unknown History Insulin NPH Hum/Reg Insulin Hm 03/09/19 Unknown History [Novolin 70-30 100 Unit/ml Vial] Metoprolol [Lopressor] 100 mg PO BID 03/09/19 03/09/19 Unknown History Oxycodone HCl/Acetaminophen 1 each PO Q6HR PRN 03/09/19 03/09/19 Unknown History [Percocet 10/325 mg] Potassium Chloride [K-Dur] 20 meq PO BID 03/09/19 03/09/19 Unknown History Tapentadol HCl [Nucynta] 75 mg PO 03/09/19 Unknown History Triumeq 600-50-300 mg Tablet 03/09/19 Unknown History diphenhydrAMINE [Benadryl CAP] 50 mg PO Q8HR PRN 03/09/19 03/09/19 Unknown History levETIRAcetam [Keppra TAB] 750 mg PO BID 03/09/19 03/09/19 Unknown History ED Neuro Physical Exam - General Limitations: Physical Limitation General appearance: alert, in no apparent distress Suspected Stroke: Yes - NIHSS Assessment Interval: Baseline 1a. Level of Consciousness: alert/keenly responsive 1b. LOC Questions: answers 1 question correctly 1c. LOC Commands: performs tasks correctly 2. Best Gaze: normal 3. Visual: no visual loss 4. Facial Palsy: normal symmetrical movement 5b. Motor Arm Right: no drift 5a. Motor Arm Left: some gravity effort 6a. Motor Leg Left: no drift 6b. Motor Leg Right: no gravity effort 7. Limb Ataxia: absent 8. Sensory: mild/moderate sensory loss 9. Best Language: no aphasia 10. Dysarthria: normal 11. Extinction/Inattention: no abnormality Total Score: 7 Stroke Severity: Moderate Stroke - Lab Data Result diagrams: 05/08/19 16:59 Lab Results 05/08/19 05/08/19 05/08/19 Range/Units 16:56 16:59 17:10 WBC 5.1 (4.5-11.0) K/mm3 RBC 4.54 (3.65-5.03) M/mm3 Hgb 14.5 (11.8-15.2) gm/dl Hct 41.2 (35.5-45.6) % MCV 91 (84-94) fl MCH 32 (28-32) pg MCHC 35 H (32-34) % RDW 13.8 (13.2-15.2) % Lymph % (Auto) 43.2 H (13.4-35.0) % [place] % (Auto) 11.0 H (0.0-7.3) % Eos % (Auto) 3.1 (0.0-4.3) % Baso % (Auto) 1.0 (0.0-1.8) % Lymph # 2.2 (1.2-5.4) K/mm3 [place] # 0.6 (0.0-0.8) K/mm3 Eos # 0.2 (0.0-0.4) K/mm3 Baso # 0.1 (0.0-0.1) K/mm3 Seg Neutrophils % 41.7 (40.0-70.0) % Seg Neutrophils # 2.1 (1.8-7.7) K/mm3 POC Glucose 98 101 (70-105) Critical care attestation.: If time is entered above; I have spent that time in minutes in the direct care of this critically ill patient, excluding procedure time. ED Disposition Clinical Impression: Hemiparesis Disposition: OP ADMIT IP TO THIS HOSP Is pt being admited?: Yes Condition: Stable
[2019-05-08 17:22] LABS: INR 0.95 (0.87-1.13); Partial Thromboplastin Time 24.4 Sec. (24.2-36.6); Thrombin Time 16.6 Sec. (15.1-19.6)
[2019-05-08 17:27] LABS: Creatine Kinase MB 3.1 ng/mL (0.0-4.0)
[2019-05-08 17:28] LABS: Alanine Aminotransferase 23 units/L (7-56); Albumin 4.1 g/dL (3.9-5); BUN/Creatinine Ratio 16; Blood Urea Nitrogen 13 mg/dL (9-20); Calcium 9.2 mg/dL (8.4-10.2); Hemolysis Index 35
--- NOTE | 2019-05-08 17:37 | Cat Scan Report ---
CT BRAIN: 05/08/2019 INDICATION / CLINICAL INFORMATION: MAIN: CODE STROKE . COMPARISON: 03/09/2019 FINDINGS: BRAIN/INTRACRANIAL STRUCTURES: Unenhanced CT images of the brain were obtained and compared to the pr ior exam from 03/09/2019. There has been no change. Again seen is relative volume loss of the right cerebral hemisphere. Right greater than left ventricu lar megaly is present, without change. There is no evidence of acute ischemic injury, hemorrhage, or mass. There are no abnormal extra-axial fluid collections. EXTRACRANIAL STRUCTURES: Unremarkable. IMPRESSION: No acute abnormality. No change when compared to 03/09/2019. Stable asymmetric cerebral atrophy. Called CS report [id number] scans at this location are performed using dose reduction to ALARA by means of automated expos ure control. Signer Name: Delvis Calles MD Signed: 05/08/2019 5:33 PM Workstation Name: [id number]
--- NOTE | 2019-05-08 19:13 | History and Physical Report ---
History of Present Illness Chief complaint: I feel weak History of present illness: 53 YO Male with HIV, CVA, CP, SLE, CAD S/P CABG, [place], Cardiomyopathy, DM, PTSD, Depression, HTN, Asthma, Chronic Pain Syndrome, COPD, Nicotine Dependence presents to ED for evaluation. Pt states that he was in his usual state of health at bedtime which was around 2330 hrs. Pt stats that he awoke from sleep this morning with Left arm and leg weakness, left sided facial drooping and slurred speech. Pt transported to [facility] via private vehicle. Pt seen and evaluated in ED and found to have neurologic deficit. A code stroke was called and the patient was initiated on CVA protocol. Pt is outside therapeutic window for TPA at time of my exam. Pt admitted to telemetry. Neurology consulted in ED. Pt denies fever, chills, CP, Palpitations, NVD, Trauma, BRBPR, Productive cough, skin rash, or recent ill contacts. Past History Past Medical History: CAD, COPD, diabetes, HIV/AIDS, stroke, other (PTSD,SLE,) Past Surgical History: CABG Social history: , smoking Family history: diabetes, hypertension Medications and Allergies Allergies Allergy/AdvReac Type Severity Reaction Status Date / Time metoclopramide [From Reglan] Allergy Anaphylaxis Verified 05/08/19 16:45 prochlorperazine Allergy Anaphylaxis Verified 05/08/19 16:45 [From Compazine] promethazine [From Phenergan] Allergy Anaphylaxis Verified 05/08/19 16:45 Home Medications Medication Instructions Recorded Confirmed Last Taken Type Furosemide [Lasix] 40 mg PO DAILY 09/21/18 05/08/19 12/21/18 History Colace CAP 1 cap PO DAILY 12/23/18 05/08/19 Unknown History ALBUTEROL NEB's 1 each IH PRN PRN 03/09/19 05/08/19 Unknown History Advair Diskus 500-50 mcg 1 puff IH DAILY 03/09/19 05/08/19 Unknown History Calcium Carbonate [Calcium 600MG 600 mg PO DAILY 03/09/19 05/08/19 Unknown History TAB] Combivent Inhaler 1 puff IH DAILY 03/09/19 05/08/19 Unknown History Dronabinol [Marinol] 10 mg PO TID 03/09/19 05/08/19 Unknown History Insulin Aspart [NovoLOG Flexpen] 0 units SQ AC 03/09/19 05/08/19 Unknown History Insulin NPH Hum/Reg Insulin Hm 0 units SQ BID 03/09/19 05/08/19 Unknown History [Novolin 70-30 100 Unit/ml Vial] Oxycodone HCl/Acetaminophen 1 each PO Q6HR PRN 03/09/19 05/08/19 Unknown History [Percocet 10/325 mg] Tapentadol HCl [Nucynta] 75 mg PO DAILY 03/09/19 05/08/19 Unknown History Triumeq 600-50-300 mg Tablet 1 each PO DAILY 03/09/19 05/08/19 Unknown History Aspirin 325 mg PO QDAY tablet 05/10/19 Unknown Rx AtorvaSTATin [Lipitor] 40 mg PO QHS #30 tablet 05/10/19 Unknown Rx Clopidogrel [Plavix] 75 mg PO DAILY #30 tablet 05/10/19 Unknown Rx Metoprolol [Lopressor TAB] 100 mg PO BID #60 tablet 05/10/19 Unknown Rx Pantoprazole [Protonix TAB] 40 mg PO DAILY #30 tablet 05/10/19 Unknown Rx diphenhydrAMINE [Benadryl CAP] 50 mg PO Q8HR PRN #15 capsule 05/10/19 Unknown Rx levETIRAcetam [Keppra TAB] 750 mg PO BID #60 tablet 05/10/19 Unknown Rx Review of Systems Constitutional: no weight loss, no weight gain, no fever, no chills Ears, nose, mouth and throat: no ear pain, no ear discharge, no tinnitis, no n ose pain, no nasal discharge, no sinus pressure Cardiovascular: no chest pain, no orthopnea, no palpitations, no rapid/irregular heart beat, no edema, no lightheadedness Respiratory: no cough, no cough with sputum, no excessive sputum Gastrointestinal: no abdominal pain, no nausea, no vomiting, no diarrhea, no change in bowel habits Genitourinary Male: no dysuria, no hematuria, no flank pain, no discharge, no urinary frequency, no urinary hesitancy Rectal: no pain, no incontinence, no bleeding Musculoskeletal: no neck stiffness, no neck pain, no arm numbness/tingling, no low back pain Integumentary: no rash, no pruritis, no redness, no sores, no wounds Neurological: weakness, gait dysfunction, no head injury, no paralysis, no parathesias, no tingling Psychiatric: no anxiety, no memory loss, no change in sleep habits, no sleep disturbances, no insomnia Endocrine: no cold intolerance, no heat intolerance, no polyphagia, no excessive thirst, no polydipsia, no polyuria, no excessive sweating Hematologic/Lymphatic: no easy bruising, no easy bleeding, no lymphadenopathy Allergic/Immunologic: no urticaria, no allergic rhinitis, no wheezing, no persistent infections, no anaphylaxis, no angioedema Exam - Constitutional Vitals: Temp Pulse Resp BP Pulse Ox 97.7 F 76 14 109/82 97 05/08/19 17:22 05/08/19 18:06 05/08/19 18:06 05/08/19 18:06 05/08/19 18:06 General appearance: Present: mild distress - EENT Eyes: Present: PERRL ENT: hearing intact, clear oral mucosa - Neck Neck: Present: supple, normal ROM - Respiratory Respiratory effort: normal Respiratory: bilateral: CTA - Cardiovascular Heart Sounds: Present: S1 & S2. Absent: rub, click - Extremities Extremities: pulses symmetrical, No edema Peripheral Pulses: within normal limits - Abdominal General gastrointestinal: Present: soft, non-tender, non-distended, normal bowel sounds Male genitourinary: Present: normal - Integumentary Integumentary: Present: clear, warm, dry - Musculoskeletal Musculoskeletal: left sided weakness - Psychiatric Psychiatric: appropriate mood/affect, intact judgment & insight - Neurologic Neurologic: CNII-XII intact, focal deficits, no moves all extremities, no gait normal Results - Labs CBC & Chem 7: 05/10/19 05:55 05/10/19 05:55 Labs: Abnormal lab results 05/08/19 05/08/19 Range/Units 16:59 16:59 MCHC 35 H (32-34) % Lymph % (Auto) 43.2 H (13.4-35.0) % [place] % (Auto) 11.0 H (0.0-7.3) % Total Creatine Kinase 1081 H (55-170) units/L Total Protein 8.5 H (6.3-8.2) g/dL Assessment and Plan - Patient Problems (1) CVA (cerebral vascular accident) Current Visit: Yes Status: Acute Qualifiers: Laterality of affected vessel: unspecified Plan to address problem: CVA Ptotocol: Admit to telemetry, CT head, Neuro check, MRI Brain, MRA Brain, Echo, Carotid doppler, antiplatelet therapy, PT/OT/Speech Therapy, lipid panel, Neurology consult (2) SLE (systemic lupus erythematosus) Current Visit: Yes Status: Acute Qualifiers: Systemic lupus erythematosus organ involvement: unspecified Plan to address problem: Supportive care, (3) CAD (coronary artery disease) Current Visit: Yes Status: Acute Plan to address problem: Lipid panel, statin therapy, risk factory reduction, (4) Diabetes Current Visit: Yes Status: Acute Plan to address problem: ADA diet, insulin, accu check (5) Nicotine dependence unspecified, with withdrawal Current Visit: Yes Status: Acute Qualifiers: Nicotine product type: cigarettes Qualified Code(s): F17.213 - Nicotine de pendence, cigarettes, with withdrawal Plan to address problem: smoking cessation counseling +15min, supportive care. (6) HIV (human immunodeficiency virus infection) Current Visit: No Status: Acute Qualifiers: HIV symptom status: unspecified Qualified Code(s): B20 - Human immunodeficiency virus [HIV] disease Plan to address problem: HAART therapy, supportive care, outpatient ID F/U care. (7) PTSD (post-traumatic stress disorder) Current Visit: Yes Status: Acute Plan to address problem: Supportive care, anxiolytic therapy prn, outpatient Psychiatry F/U care, (8) DVT prophylaxis Current Visit: Yes Status: Acute Plan to address problem: SCD to BLE while inbed.
[2019-05-08] MEDS ORDERED: TYLENOL PO PRN (19:14)
[2019-05-08] MEDS ORDERED: PHENERGAN PR PRN (19:14)
[2019-05-08] MEDS ORDERED: REGLAN PO PRN (19:14)
[2019-05-08] MEDS ORDERED: DULCOLAX PR PRN (19:14)
[2019-05-08] MEDS ORDERED: ZOFRAN IV PRN (19:14)
[2019-05-08] MEDS ORDERED: SODIUM CHLORIDE FLUSH SYRINGE 10 ML IV PRN (19:14)
[2019-05-08] MEDS ORDERED: PROVENTIL IH PRN (19:14)
[2019-05-08] MEDS ORDERED: MILK OF MAGNESIA PO PRN (19:14)
[2019-05-08] MEDS ORDERED: NON-FORMULARY (Oxycodone Hcl/Acetaminophen [Percocet 10/325 Mg] 1 EACH) PO PRN (19:16)
[2019-05-08] MEDS ORDERED: BENADRYL PO PRN (19:16)
[2019-05-08] MEDS ORDERED: PERCOCET 5/325 PO PRN (19:36)
[2019-05-08] MEDS ORDERED: ROXICODONE PO PRN (19:37)
[2019-05-08 20:38] LABS: Bilirubin,Urine NEG (Negative); Blood,Urine SM (Negative); Color,Urine Yellow (Yellow); Protein,Urine <15 mg/dL mg/dL (Negative); WBC,Urine < 1.0 /HPF (0.0-6.0)
[2019-05-08 20:45] LABS: Amphetamine Screen,Urine PRESUMPTIVE NEGATIVE; Benzodiazepines Screen,Urine PRESUMPTIVE NEGATIVE; Cannabinoid Screen,Urine PRESUMPTIVE NEGATIVE; Methadone Screen,Urine PRESUMPTIVE NEGATIVE; Opiate Screen,Urine PRESUMPTIVE NEGATIVE
[2019-05-08] MEDS ORDERED: PERCOCET 5/325 ONE (20:57)
[2019-05-08 21:04] LABS: Cocaine Screen,Urine PRESUMPTIVE POSITIVE
[2019-05-08] MEDS: PERCOCET 5/325 PO PRN (21:14)
[2019-05-08] MEDS ORDERED: DRONABINOL 5 MG PO SCH (22:00)
[2019-05-08] MEDS ORDERED: NON-FORMULARY (Levetiracetam [Keppra Tab] 750 MG) PO SCH (22:00)
[2019-05-08] MEDS: KEPPRA PO SCH (22:16)
[2019-05-08] MEDS: K-DUR PO SCH (22:17)
[2019-05-08] MEDS: LOPRESSOR PO SCH (22:18)
[2019-05-09] MEDS: MARINOL PO SCH ×3 (00:22→22:25)
[2019-05-09] MEDS: LASIX PO SCH (05:17)
[2019-05-09 06:08] LABS: Chol/HDL Ratio 3.26 %
[2019-05-09] MEDS: ASPIRIN PO SCH (09:28)
[2019-05-09] MEDS: K-DUR PO SCH ×2 (09:28→22:24)
[2019-05-09] MEDS: PROTONIX PO SCH (09:28)
[2019-05-09] MEDS: PLAVIX PO SCH (09:28)
[2019-05-09] MEDS: KEPPRA PO SCH ×2 (09:28→22:25)
[2019-05-09] MEDS: LOPRESSOR PO SCH ×2 (09:29→22:26)
--- NOTE | 2019-05-09 12:01 | Vascular Lab Report ---
"DUPLEX DOPPLER ULTRASOUND CAROTID, BILATERAL INDICATION: stroke. FINDINGS: RIGHT CAROTID: Mild atherosclerotic plaque Right CCA velocity: 101 cm/sec. Right ICA peak systolic velocity: 88 cm/sec. ICA/CCA PSV Ratio: Less than 2. Right Vertebral Artery: Antegrade flow. LEFT CAROTID: Mild atherosclerotic plaque Left CCA velocity: 85 cm/sec. Left ICA peak systolic velocity: 58 cm/sec. ICA/CCA PSV Ratio: Less than 2. Left Vertebral Artery: Antegrade flow. IMPRESSION: 1. Right Internal Carotid Artery: Less than 50% diameter stenosis. 2. Left Internal Carotid Artery: Less than 50% diameter stenosis. Velocity criteria are extrapolated from diameter data as defined by the Society of Radiologists in Ul trasound Consensus Conference, Radiology 2003; 229;340-346. Degree of Stenosis (%) || ICA PSV (cm/sec) || Plaque estimate (%) || ICA/CCA PSV Ratio Normal <125 None <2.0 <50 <125 <50 <2.0 50-69 125-230 50 2.0-4.0 70 but less than 100 >230 50 >4.0 Near occlusion High, low, or none visible variable Total occlusion None visible; no lumen N/A Signer Name: Dick Sandy MD Signed: 05/09/2019 11:56 AM Workstation Name: [id number]
--- NOTE | 2019-05-09 14:22 | Progress Note ---
Assessment and Plan Assessment and plan: CVA. Follow-up echocardiogram, carotid Doppler and MRI. Neuro consultation pending. PT evaluation. SLE. Continue supportive care. CAD. Stable. Diabetes mellitus type 2. Continue Accu-Cheks and sliding scale insulin. HIV. Stable. History of PTSD Tobacco abuse. Patient will be counseled on smoking cessation. History Interval history: No new issues overnight. Hospitalist Physical - Constitutional Vitals: Temp Pulse Resp BP Pulse Ox 98.0 F 76 18 110/60 98 05/09/19 07:20 05/09/19 09:29 05/09/19 10:00 05/09/19 09:29 05/09/19 04:00 General appearance: Present: mild distress - EENT Eyes: Present: PERRL, EOM intact ENT: hearing intact, clear oral mucosa, dentition normal - Neck Neck: Present: supple, normal ROM - Respiratory Respiratory effort: normal Respiratory: bilateral: CTA - Cardiovascular Rhythm: regular Heart Sounds: Present: S1 & S2. Absent: gallop, rub - Extremities Extremities: no ischemia, No edema, Full ROM - Abdominal General gastrointestinal: soft, non-tender, non-distended, normal bowel sounds - Integumentary Integumentary: Present: clear, warm, dry - Neurologic Neurologic: CNII-XII intact, moves all extremities Results - Labs CBC & Chem 7: 05/08/19 16:59 05/08/19 16:59 Labs: Laboratory Last Values WBC 5.1 K/mm3 (4.5-11.0) 05/08/19 16:59 RBC 4.54 M/mm3 (3.65-5.03) 05/08/19 16:59 Hgb 14.5 gm/dl (11.8-15.2) 05/08/19 16:59 Hct 41.2 % (35.5-45.6) 05/08/19 16:59 MCV 91 fl (84-94) 05/08/19 16:59 MCH 32 pg (28-32) 05/08/19 16:59 MCHC 35 % (32-34) H 05/08/19 16:59 RDW 13.8 % (13.2-15.2) 05/08/19 16:59 Plt Count 218 K/mm3 (140-440) 05/08/19 16:59 Lymph % (Auto) 43.2 % (13.4-35.0) H 05/08/19 16:59 [place] % (Auto) 11.0 % (0.0-7.3) H 05/08/19 16:59 Eos % (Auto) 3.1 % (0.0-4.3) 05/08/19 16:59 Baso % (Auto) 1.0 % (0.0-1.8) 05/08/19 16:59 Lymph # 2.2 K/mm3 (1.2-5.4) 05/08/19 16:59 [place] # 0.6 K/mm3 (0.0-0.8) 05/08/19 16:59 Eos # 0.2 K/mm3 (0.0-0.4) 05/08/19 16:59 Baso # 0.1 K/mm3 (0.0-0.1) 05/08/19 16:59 Seg Neutrophils % 41.7 % (40.0-70.0) 05/08/19 16:59 Seg Neutrophils # 2.1 K/mm3 (1.8-7.7) 05/08/19 16:59 PT 12.4 Sec. (12.2-14.9) 05/08/19 16:59 INR 0.95 (0.87-1.13) 05/08/19 16:59 APTT 24.4 Sec. (24.2-36.6) 05/08/19 16:59 16.6 Sec. (15.1-19.6) 05/08/19 16:59 Sodium 138 mmol/L (137-145) 05/08/19 16:59 Potassium 4.7 mmol/L (3.6-5.0) 05/08/19 16:59 Chloride 101.2 mmol/L (98-107) 05/08/19 16:59 Carbon Dioxide 24 mmol/L (22-30) 05/08/19 16:59 18 mmol/L 05/08/19 16:59 BUN 13 mg/dL (9-20) 05/08/19 16:59 0.8 mg/dL (0.8-1.5) 05/08/19 16:59 Estimated GFR > 60 ml/min 05/08/19 16:59 16 % 05/08/19 16:59 Glucose 99 mg/dL (75-100) 05/08/19 16:59 POC Glucose 102 (70-105) 05/09/19 07:25 Calcium 9.2 mg/dL (8.4-10.2) 05/08/19 16:59 0.50 mg/dL (0.1-1.2) 05/08/19 16:59 AST 37 units/L (5-40) 05/08/19 16:59 ALT 23 units/L (7-56) 05/08/19 16:59 104 units/L (35-129) 05/08/19 16:59 1081 units/L (55-170) H 05/08/19 16:59 CK-MB (CK-2) 3.1 ng/mL (0.0-4.0) 05/08/19 16:59 CK-MB (CK-2) Rel Index 0.2 (0-4) 05/08/19 16:59 < 0.010 ng/mL (0.00-0.029) 05/08/19 16:59 8.5 g/dL (6.3-8.2) H 05/08/19 16:59 4.1 g/dL (3.9-5) 05/08/19 16:59 0.9 % 05/08/19 16:59 Triglycerides 162 mg/dL (2-149) H 05/09/19 05:33 Cholesterol 134 mg/dL (50-199) 05/09/19 05:33 89 mg/dL (50-130) 05/09/19 05:33 41 mg/dL (40-59) 05/09/19 05:33 3.26 % 05/09/19 05:33 Yellow (Yellow) 05/08/19 Unknown Clear (Clear) 05/08/19 Unknown 6.0 (5.0-7.0) 05/08/19 Unknown Ur Specific [place] 1.018 (1.003-1.030) 05/08/19 Unknown <15 mg/dl mg/dL (Negative) 05/08/19 Unknown Neg mg/dL (Negative) 05/08/19 Unknown Neg mg/dL (Negative) 05/08/19 Unknown Sm (Negative) 05/08/19 Unknown Neg (Negative) 05/08/19 Unknown Neg (Negative) 05/08/19 Unknown 2.0 mg/dL (<2.0) 05/08/19 Unknown Ur Leukocyte Esterase Neg (Negative) 05/08/19 Unknown < 1.0 /HPF (0.0-6.0) 05/08/19 Unknown 4.0 /HPF (0.0-6.0) 05/08/19 Unknown U Epithel Cells (Auto) < 1.0 /HPF (0-13.0) 05/08/19 Unknown Presumptive negative 05/08/19 Unknown Presumptive negative 05/08/19 Unknown Ur Barbiturates Screen Presumptive negative 05/08/19 Unknown Ur Phencyclidine Scrn Presumptive negative 05/08/19 Unknown Ur Amphetamines Screen Presumptive negative 05/08/19 Unknown U Benzodiazepines Scrn Presumptive negative 05/08/19 Unknown Presumptive positive 05/08/19 Unknown U Marijuana (THC) Screen Presumptive negative 05/08/19 Unknown Disclamer 05/08/19 Unknown Active Medications - Current Medications Current Medications: Generic Name Dose Route Start Last Admin Trade Name Freq PRN Reason Stop Dose Admin Acetaminophen 650 mg 05/08/19 19:14 Tylenol PO Q4H PRN Pain, Mild (1-3) Albuterol 2.5 mg 05/08/19 19:14 Proventil IH Q3HRT PRN Shortness Of Breath Aspirin 325 mg 05/09/19 10:00 05/09/19 09:28 Aspirin PO 325 mg QDAY DEBRA Administration Atorvastatin Calcium 40 mg 05/08/19 22:00 05/08/19 22:16 Lipitor PO 40 mg QHS DEBRA Administration Bisacodyl 10 mg 05/08/19 19:14 Dulcolax UT QDAY PRN Constipation Clopidogrel Bisulfate 75 mg 05/09/19 10:00 05/09/19 09:28 Plavix PO 75 mg DAILY DEBRA Administration Diphenhydramine HCl 50 mg 05/08/19 19:16 Benadryl PO Q8HR PRN Itching Dronabinol 5 mg 05/08/19 22:00 05/09/19 10:46 Marinol PO 5 mg BID DEBRA Administration Furosemide 40 mg 05/09/19 06:00 05/09/19 05:17 Lasix PO 40 mg DAILY@0600 DEBRA Administration Levetiracetam 750 mg 05/08/19 22:00 05/09/19 09:28 Keppra PO 750 mg BID DEBRA Administration Magnesium Hydroxide 30 ml 05/08/19 19:14 Milk Of Magnesia PO Q4H PRN Constipation Metoprolol Tartrate 100 mg 05/08/19 22:00 05/09/19 09:29 Lopressor PO 100 mg BID DEBRA Administration Ondansetron HCl 4 mg 05/08/19 19:14 Zofran IV Q8H PRN Nausea And Vomiting Oxycodone HCl 5 mg 05/08/19 19:37 Roxicodone PO Q6H PRN Pain, Moderate (4-6) Oxycodone/Acetaminophen 1 tab 05/08/19 19:36 Percocet 5/325 PO Q6H PRN Pain, Moderate (4-6) Oxycodone/Acetaminophen 2 tab 05/08/19 20:50 05/08/19 21:14 Percocet 5/325 PO 2 tab Q8H PRN Administration Pain, Moderate (4-6) Pantoprazole Sodium 40 mg 05/09/19 10:00 05/09/19 09:28 Protonix PO 40 mg DAILY DEBRA Administration Potassium Chloride 20 meq 05/08/19 22:00 05/09/19 09:28 K-Dur PO 20 meq BID DEBRA Administration Sodium Chloride 10 ml 05/08/19 19:14 Sodium Chloride Flush Syringe 10 Ml IV PRN PRN LINE FLUSH
--- NOTE | 2019-05-09 15:59 | Magnetic Resonance Report ---
MRI BRAIN WITHOUT CONTRAST INDICATION / CLINICAL INFORMATION: stroke. TECHNIQUE: Multiplanar, multisequence MR images of the brain were obtained. COMPARISON: None available. FINDINGS: BRAIN / INTRACRANIAL CONTENTS: There is asymmetry of the right cerebral hemisphere with moderate atro phy. 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 However, there is no bony overgrowth of the right calvarium. There is corresponding prominence of the right lateral ventricle which.. This finding correlates with the earlier CT of 05/08/2019. There are mild cerebral white matter changes with a few small hyperintense foci most consistent with mild microvascular angiopathy. The diffusion imaging reveals no evidence of acute infarction. CRANIOCERVICAL JUNCTION: No significant abnormality. VASCULAR FLOW-VOIDS: No significant abnormality. ORBITS: No significant abnormality of visualized orbits. SINUSES / MASTOIDS: No significant abnormality of the visualized paranasal sinuses or mastoid air miracle ls. ADDITIONAL FINDINGS: None. IMPRESSION: 1. There is moderate to atrophy of the right cerebral hemisphere as detailed above which appears to b e a developmental. 2. There are minimal white matter changes without evidence of recent infarction. Signer Name: Juan Truong MD Signed: 05/09/2019 3:54 PM Workstation Name: [id number]
--- NOTE | 2019-05-09 16:09 | Magnetic Resonance Report ---
MRA HEAD 05/09/2019 INDICATION / CLINICAL INFORMATION: stroke. Left-sided weakness TECHNIQUE: Routine MRA of the head is performed. 3-D/MIP reformats postprocessed. COMPARISON: None available. FINDINGS: MRA HEAD: Intracranial internal carotid arteries: No significant abnormality. Anterior cerebral arteries: No significant abnormality. Middle cerebral arteries: No significant abnormality. Intracranial vertebral arteries: No significant abnormality. Basilar artery: No significant abnormality. Posterior cerebral arteries: No significant abnormality. IMPRESSION: No significant abnormality. Signer Name: Delvis Calles MD Signed: 05/09/2019 4:04 PM Workstation Name: [id number]
[2019-05-09] MEDS: PERCOCET 5/325 PO PRN (17:52)
--- NOTE | 2019-05-09 23:58 | Consultation ---
History of Present Illness Consult date: 05/09/19 Reason for Consult: Possible Stroke Chief complaint: Left sided weakness History of present illness: Patient is a 53 y/o man w/ a h/o cerebral palsy, h/o seizures, h/o stroke w/ residual left sided weakness, HTN, CAD, SLE, DM, COPD, HIV, PTSD, depression, s/p CABG. On Sunday, the patient awoke from a nap, and noted that his left arm and leg were weaker than usual. Patient has baseline of residual LUE/LLE weakness since after his stroke, however this was increased some baseline. He feels that symtpoms have not improved much since onset 2 days ago. Past History Past Medical History: CAD, COPD, diabetes, HIV/AIDS, stroke, other (PTSD,SLE,) Past Surgical History: CABG Social history: , smoking Family history: diabetes, hypertension Medications and Allergies Allergies Allergy/AdvReac Type Severity Reaction Status Date / Time metoclopramide [From Reglan] Allergy Anaphylaxis Verified 05/08/19 16:45 prochlorperazine Allergy Anaphylaxis Verified 05/08/19 16:45 [From Compazine] promethazine [From Phenergan] Allergy Anaphylaxis Verified 05/08/19 16:45 Home Medications Medication Instructions Recorded Confirmed Last Taken Type Clopidogrel Bisulfate [Plavix] 75 mg PO DAILY 09/21/18 05/08/19 12/21/18 History Furosemide [Lasix] 40 mg PO DAILY 09/21/18 05/08/19 12/21/18 History Colace CAP 1 cap PO DAILY 12/23/18 05/08/19 Unknown History Pantoprazole [Protonix TAB] 40 mg PO DAILY #30 tablet 12/25/18 05/08/19 Unknown Rx ALBUTEROL NEB's 1 each IH PRN PRN 03/09/19 05/08/19 Unknown History Advair Diskus 500-50 mcg 1 puff IH DAILY 03/09/19 05/08/19 Unknown History Calcium Carbonate [Calcium 600MG 600 mg PO DAILY 03/09/19 05/08/19 Unknown History TAB] Combivent Inhaler 1 puff IH DAILY 03/09/19 05/08/19 Unknown History Dronabinol [Marinol] 10 mg PO TID 03/09/19 05/08/19 Unknown History Insulin Aspart [NovoLOG Flexpen] 0 units SQ AC 03/09/19 05/08/19 Unknown History Insulin NPH Hum/Reg Insulin Hm 0 units SQ BID 03/09/19 05/08/19 Unknown History [Novolin 70-30 100 Unit/ml Vial] Metoprolol [Lopressor] 100 mg PO BID 03/09/19 05/08/19 Unknown History Oxycodone HCl/Acetaminophen 1 each PO Q6HR PRN 03/09/19 05/08/19 Unknown History [Percocet 10/325 mg] Potassium Chloride [K-Dur] 20 meq PO BID 03/09/19 05/08/19 Unknown History Tapentadol HCl [Nucynta] 75 mg PO DAILY 03/09/19 05/08/19 Unknown History Triumeq 600-50-300 mg Tablet 1 each PO DAILY 03/09/19 05/08/19 Unknown History diphenhydrAMINE [Benadryl CAP] 50 mg PO Q8HR PRN 03/09/19 05/08/19 Unknown History levETIRAcetam [Keppra TAB] 750 mg PO BID 03/09/19 05/08/19 Unknown History Active Meds: Active Medications Acetaminophen (Tylenol) 650 mg PO Q4H PRN PRN Reason: Pain, Mild (1-3) Albuterol (Proventil) 2.5 mg IH Q3HRT PRN PRN Reason: Shortness Of Breath Aspirin (Aspirin) 325 mg PO QDAY [facility] Last Admin: 05/09/19 09:28 Dose: 325 mg Documented by: Atorvastatin Calcium (Lipitor) 40 mg PO QHS [facility] Last Admin: 05/09/19 22:24 Dose: 40 mg Documented by: Bisacodyl (Dulcolax) 10 mg [place] QDAY PRN PRN Reason: Constipation Clopidogrel Bisulfate (Plavix) 75 mg PO DAILY [facility] Last Admin: 05/09/19 09:28 Dose: 75 mg Documented by: Diphenhydramine HCl (Benadryl) 50 mg PO Q8HR PRN PRN Reason: Itching Dronabinol (Marinol) 5 mg PO BID [facility] Last Admin: 05/09/19 22:25 Dose: 5 mg Documented by: Furosemide (Lasix) 40 mg PO DAILY@0600 [facility] Last Admin: 05/09/19 05:17 Dose: 40 mg Documented by: Levetiracetam (Keppra) 750 mg PO BID [facility] Last Admin: 05/09/19 22:25 Dose: 750 mg Documented by: Magnesium Hydroxide (Milk Of Magnesia) 30 ml PO Q4H PRN PRN Reason: Constipation Metoprolol Tartrate (Lopressor) 100 mg PO BID [facility] Last Admin: 05/09/19 22:26 Dose: 100 mg Documented by: Ondansetron HCl (Zofran) 4 mg IV Q8H PRN PRN Reason: Nausea And Vomiting Oxycodone HCl (Roxicodone) 5 mg PO Q6H PRN PRN Reason: Pain, Moderate (4-6) Oxycodone/Acetaminophen (Percocet 5/325) 1 tab PO Q6H PRN PRN Reason: Pain, Moderate (4-6) Oxycodone/Acetaminophen (Percocet 5/325) 2 tab PO Q8H PRN PRN Reason: Pain, Moderate (4-6) Last Admin: 05/09/19 17:52 Dose: 2 tab Documented by: Pantoprazole Sodium (Protonix) 40 mg PO DAILY [facility] Last Admin: 05/09/19 09:28 Dose: 40 mg Documented by: Potassium Chloride (K-Dur) 20 meq PO BID [facility] Last Admin: 05/09/19 22:24 Dose: 20 meq Documented by: Sodium Chloride (Sodium Chloride Flush Syringe 10 Ml) 10 ml IV PRN PRN PRN Reason: LINE FLUSH Review of Systems All systems: negative Neurological: weakness Physical Examination - Vital Signs Vital Signs: Vital Signs Pulse Ox 95 05/08/19 17:04 - Physical Exam Narrative exam: Gen: no distress, cooperative Neck: no JVD, masses, or bruits HEENT: atraumatic, sclera anicteric CV RRR Lung symmetric chest expansion Abd: soft, non-tender, non-distended Ext: no edema Neurological Examination: Mental status: Alert, oriented x 3, appropriate in conversation to recent and remote events Language: Fluent, comprehension, repetition and naming intact CN: Rt. HH, pupils ERR, EOMi, V1-3 decreased on left No droop, no dysarthria Uvula are midline Tongue midline Motor system: Muscle tone and appearance are normal Strength: RUE: proximal: 5/5, distal: 5/5 LUE: proximal: 1/5, distal: 1/5 RLE: proximal: 5/5, distal: 5/5 LLE: proximal: 1/5, distal: 1/5 Reflexes: 2+ in biceps/brachioradialis/triceps/patellar/ankle on right, 3+ on left. Sensory: decreased on left to LT Coord: No tremor, FTN, HTS intact on Rt., unable to assess on left to weakness. Gait: Walks with walker. Of note, patient was notably moving LUE/LLE when walking with walker, however when objectively examining LUE/ LLE, patient stated he was not able to move it at all. - Assessment Assessment Interval: Baseline - Level of Consciousness 1a. Level of Consciousness: alert/keenly responsive - LOC Questions 1b. LOC Questions: answers both correctly - LOC Command 1c. LOC Commands: performs tasks correctly - Visual 3. Visual: complete hemianopia - Facial Palsy 4. Facial Palsy: normal symmetrical movement - Motor Arm 5a. Motor Arm Left: no gravity effort 5b. Motor Arm Right: no drift - Motor Leg 6a. Motor Leg Left: no movement 6b. Motor Leg Right: no drift - Limb Ataxia 7. Limb Ataxia: absent - Sensory 8. Sensory: mild/moderate sensory loss - Best Language 9. Best Language: no aphasia - Dysarthria 10. Dysarthria: normal - Extinction and Inattention 11. Extinction/Inattention: no abnormality Results - Laboratory Findings CBC and BMP: 05/08/19 16:59 05/08/19 16:59 Abnormal Lab Findings: Abnormal Labs 05/08/19 05/08/19 05/09/19 16:59 16:59 05:33 MCHC 35 H Lymph % (Auto) 43.2 H [place] % (Auto) 11.0 H POC Glucose Total Creatine Kinase 1081 H Total Protein 8.5 H Triglycerides 162 H 05/09/19 20:57 MCHC Lymph % (Auto) [place] % (Auto) POC Glucose 131 H Total Creatine Kinase Total Protein Triglycerides Assessment and Plan Patient is a 53 y/o man w/ a h/o cerebral palsy, h/o seizures, h/o stroke w/ residual left sided weakness, HTN, CAD, SLE, DM, COPD, HIV, PTSD, depression, s/p CABG, who p/w increased left sided weakness. According to the patient's clinical findings, it is possible that the increase Lt. sided weakness may be due to recrudescence of previous stroke symptoms in setting of metabolic/infect ious abnormalities. Of note, patient was notably able to move left arm and leg to some extent when walking on his own with walker, however stated he could not move it on objective testing. Therefore, an alternative diagnosis is conversion disorder. Plan: 1. Conversion d/o vs. Recrudescence of previous stroke symptoms: - MRI did not reveal any evidence of acute ischemic strokes. - Cont current home medications for stroke prevention. - Patient states that he has not been able to take meds recently due to insurance issues. - Recommend psychiatry consult, for possible conversion d/o. - Recommend further workup per primary team of possible infectious metabolic derangements. -Will sign off, as I am not covering the weekend. Please consult neurologist that is covering tomorrow, if primary feels that patient will require neurologic monitoring. Charli Davison MD Neurology
[2019-05-10] MEDS: PERCOCET 5/325 PO PRN ×2 (02:27→13:33)
[2019-05-10] MEDS: LASIX PO SCH (06:40)
[2019-05-10 06:43] LABS: Hematocrit 42.2 % (35.5-45.6); Hemoglobin 14.5 gm/dl (11.8-15.2); Mean Corpuscular HGB Conc 34 % (32-34); Mean Corpuscular Volume 91 fl (84-94); Platelet Count 215 K/mm3 (140-440); Red Blood Count 4.64 M/mm3 (3.65-5.03); Red Cell Distribution Width 13.8 % (13.2-15.2)
[2019-05-10 07:01] LABS: BUN/Creatinine Ratio 19; Blood Urea Nitrogen 15 mg/dL (9-20); Calcium 8.6 mg/dL (8.4-10.2); Hemolysis Index 3
[2019-05-10 08:17] VITALS: BP 112/56
[2019-05-10] MEDS: ASPIRIN PO SCH (09:13)
[2019-05-10] MEDS: PLAVIX PO SCH (09:13)
[2019-05-10] MEDS: PROTONIX PO SCH (09:13)
[2019-05-10] MEDS: KEPPRA PO SCH (09:13)
[2019-05-10] MEDS: K-DUR PO SCH (09:13)
[2019-05-10] MEDS: LOPRESSOR PO SCH (09:16)
--- NOTE | 2019-05-10 10:21 | Discharge Summary ---
Providers - Providers Date of Admission: 05/08/19 19:14 Date of discharge: 05/10/19 Attending physician: KIERA ROSADO 05/08/19 19:14 Occupational Therapy Evaluate and Treat [CONS] Routine Comment: Reason For Exam: Neuro deficits Physical Therapy Evaluation and Treat [CONS] Routine Comment: Reason For Exam: Neuro deficits 05/08/19 19:15 Speech Therapy Evaluation and Treat [CONS] Routine Reason For Exam: swallow eval 05/09/19 09:13 Consult to Physician [CONS] Routine Comment: Consulting Provider: KEKE PIERCE Physician Instructions: Reason For Exam: CVA 05/09/19 21:06 Consult to Dietitian/Nutrition [CONS] Routine Physician Instructions: Boost/Ensure Reason For Exam: Reason for Consult: Pt needs oral supplement Primary care physician: VY LEE Hospitalization Reason for admission: Left sided weakness Condition: Critical Hospital course: Patient is a 53 y/o man w/ a h/o cerebral palsy, h/o seizures, h/o stroke w/ residual left sided weakness, HTN, CAD, SLE, DM, COPD, HIV, PTSD, depression, s/p CABG. On Sunday, the patient awoke from a nap, and noted that his left arm and leg were weaker than usual. Patient has baseline of residual LUE/LLE weakness since after his stroke, however this was increased some baseline. He feels that symtpoms have not improved much since onset 2 days ago. On exam from myself as well as the neurologist patient was notably moving LUE/LLE when walking with walker, however when objectively examining LUE/ LLE, patient stated he was not able to move it at all. This accident was also observed from the physical therapist based on their evaluation. Therefore, alternative diagnosis of conversion disorder likely. MRI did not reveal any evidence of acute ischemic strokes. Patient with no evidence of infectious or metabolic derangements. Mental health evaluation prior to discharge. If clear by mental health, patient will discharge home. Dedicated discharge time 32 minutes. Disposition: DC-01 TO HOME OR SELFCARE Time spent for discharge: 32 - Discharge Diagnoses (1) CAD (coronary artery disease) Status: Acute (2) Diabetes Status: Acute (3) Nicotine dependence unspecified, with withdrawal Status: Acute (4) PTSD (post-traumatic stress disorder) Status: Acute (5) SLE (systemic lupus erythematosus) Status: Acute (6) Cardiomyopathy Status: Acute Qualifiers: Cardiomyopathy type: other Qualified Code(s): I42.8 - Other cardiomyopathies (7) Diabetes Status: Acute (8) HIV (human immunodeficiency virus infection) Status: Acute (9) HTN (hypertension) Status: Acute Qualifiers: Hypertension type: essential hypertension Qualified Code(s): I10 - Essential (primary) hypertension (10) Conversion disorder Status: Acute Core Measure Documentation - Palliative Care Palliative Care/ Comfort Measures: Not Applicable - Core Measures Any of the following diagnoses?: none Exam - Constitutional Vitals: Temp Pulse Resp BP Pulse Ox 98.4 F 77 18 112/56 98 05/10/19 07:43 05/10/19 09:16 05/10/19 07:43 05/10/19 09:16 05/10/19 07:43 General appearance: Present: no acute distress, well-nourished - EENT Eyes: Present: PERRL ENT: hearing intact, clear oral mucosa - Neck Neck: Present: supple, normal ROM - Respiratory Respiratory effort: normal Respiratory: bilateral: CTA - Cardiovascular Heart Sounds: Present: S1 & S2. Absent: rub, click - Extremities Extremities: pulses symmetrical, No edema Peripheral Pulses: within normal limits - Abdominal General gastrointestinal: Present: soft, non-tender, non-distended, normal bowel sounds Male genitourinary: Present: normal - Integumentary Integumentary: Present: clear, warm, dry - Musculoskeletal Musculoskeletal: gait normal, strength equal bilaterally - Psychiatric Psychiatric: appropriate mood/affect, intact judgment & insight - Neurologic Neurologic: CNII-XII intact, moves all extremities Plan Activity: advance as tolerated Weight Bearing Status: Weight Bear as Tolerated Diet: diabetic Follow up with: VY LEE MD [Primary Care Provider] - 3-5 Days Prescriptions: diphenhydrAMINE [Benadryl CAP] 50 mg PO Q8HR PRN #15 capsule PRN Reason: Itching levETIRAcetam [Keppra TAB] 750 mg PO BID #60 tablet AtorvaSTATin [Lipitor] 40 mg PO QHS #30 tablet Metoprolol [Lopressor TAB] 100 mg PO BID #60 tablet Clopidogrel [Plavix] 75 mg PO DAILY #30 tablet Pantoprazole [Protonix TAB] 40 mg PO DAILY #30 tablet
[2019-05-10] MEDS: MARINOL PO SCH (10:23)
--- NOTE | 2019-05-10 11:54 | Consultation ---
History of Present Illness - Reason for Consult Consult date: 05/10/19 Reason for consult: Mental Health Evaluation Requesting physician: KIERA ROSADO - Chief Complaint Chief complaint: "I have some left sided weakness" - History of Present Psychiatric Illness 53 y.o. male who presented to the Er for left sided weakness. This patient is known to me. Today the patient was calm and cooperative during the assessment. He stated that he woke up with left side weakness 3 days ago. He stated that he suffered a stroke a couple of months ago and the residual was left sided weakness. He stated that the weakness have not gotten better. Per my observation, the patient needed assistance moving his upper and lower extremities (left side). He stated that prior to his stroke he didn't have any problems with the left side of his body. He wouldn't confirm rehab services when asked. He denies having any stressors in his life other than dealing with his about marital issues. He stated that he is compliant with his psy medications (Zoloft/Buspar). He stated that he has a appt with his psychiatrist (MARK) next week. He denies SI/HI's and AVH's. He denies being depressed, anxiety, erratic sleep, and a poor appetite. He denies alcohol consumption (etoh), but acknowledged some marijuana use. Medications and Allergies Allergies Allergy/AdvReac Type Severity Reaction Status Date / Time metoclopramide [From Reglan] Allergy Anaphylaxis Verified 05/08/19 16:45 prochlorperazine Allergy Anaphylaxis Verified 05/08/19 16:45 [From Compazine] promethazine [From Phenergan] Allergy Anaphylaxis Verified 05/08/19 16:45 Home Medications Medication Instructions Recorded Confirmed Last Taken Type Furosemide [Lasix] 40 mg PO DAILY 09/21/18 05/08/19 12/21/18 History Colace CAP 1 cap PO DAILY 12/23/18 05/08/19 Unknown History ALBUTEROL NEB's 1 each IH PRN PRN 03/09/19 05/08/19 Unknown History Advair Diskus 500-50 mcg 1 puff IH DAILY 03/09/19 05/08/19 Unknown History Calcium Carbonate [Calcium 600MG 600 mg PO DAILY 03/09/19 05/08/19 Unknown History TAB] Combivent Inhaler 1 puff IH DAILY 03/09/19 05/08/19 Unknown History Dronabinol [Marinol] 10 mg PO TID 03/09/19 05/08/19 Unknown History Insulin Aspart [NovoLOG Flexpen] 0 units SQ AC 03/09/19 05/08/19 Unknown History Insulin NPH Hum/Reg Insulin Hm 0 units SQ BID 03/09/19 05/08/19 Unknown History [Novolin 70-30 100 Unit/ml Vial] Oxycodone HCl/Acetaminophen 1 each PO Q6HR PRN 03/09/19 05/08/19 Unknown History [Percocet 10/325 mg] Tapentadol HCl [Nucynta] 75 mg PO DAILY 03/09/19 05/08/19 Unknown History Triumeq 600-50-300 mg Tablet 1 each PO DAILY 03/09/19 05/08/19 Unknown History Aspirin 325 mg PO QDAY tablet 05/10/19 Unknown Rx AtorvaSTATin [Lipitor] 40 mg PO QHS #30 tablet 05/10/19 Unknown Rx Clopidogrel [Plavix] 75 mg PO DAILY #30 tablet 05/10/19 Unknown Rx Metoprolol [Lopressor TAB] 100 mg PO BID #60 tablet 05/10/19 Unknown Rx Pantoprazole [Protonix TAB] 40 mg PO DAILY #30 tablet 05/10/19 Unknown Rx diphenhydrAMINE [Benadryl CAP] 50 mg PO Q8HR PRN #15 capsule 05/10/19 Unknown Rx levETIRAcetam [Keppra TAB] 750 mg PO BID #60 tablet 05/10/19 Unknown Rx Active Meds: Active Medications Acetaminophen (Tylenol) 650 mg PO Q4H PRN PRN Reason: Pain, Mild (1-3) Albuterol (Proventil) 2.5 mg IH Q3HRT PRN PRN Reason: Shortness Of Breath Aspirin (Aspirin) 325 mg PO QDAY [facility] Last Admin: 05/10/19 09:13 Dose: 325 mg Documented by: Atorvastatin Calcium (Lipitor) 40 mg PO QHS [facility] Last Admin: 05/09/19 22:24 Dose: 40 mg Documented by: Bisacodyl (Dulcolax) 10 mg [place] QDAY PRN PRN Reason: Constipation Clopidogrel Bisulfate (Plavix) 75 mg PO DAILY [facility] Last Admin: 05/10/19 09:13 Dose: 75 mg Documented by: Diphenhydramine HCl (Benadryl) 50 mg PO Q8HR PRN PRN Reason: Itching Last Admin: 05/10/19 11:28 Dose: 50 mg Documented by: Dronabinol (Marinol) 5 mg PO BID [facility] Last Admin: 05/10/19 10:23 Dose: 5 mg Documented by: Furosemide (Lasix) 40 mg PO DAILY@0600 [facility] Last Admin: 05/10/19 06:40 Dose: 40 mg Documented by: Levetiracetam (Keppra) 750 mg PO BID [facility] Last Admin: 05/10/19 09:13 Dose: 750 mg Documented by: Magnesium Hydroxide (Milk Of Magnesia) 30 ml PO Q4H PRN PRN Reason: Constipation Metoprolol Tartrate (Lopressor) 100 mg PO BID [facility] Last Admin: 05/10/19 09:16 Dose: 100 mg Documented by: Ondansetron HCl (Zofran) 4 mg IV Q8H PRN PRN Reason: Nausea And Vomiting Oxycodone HCl (Roxicodone) 5 mg PO Q6H PRN PRN Reason: Pain, Moderate (4-6) Oxycodone/Acetaminophen (Percocet 5/325) 1 tab PO Q6H PRN PRN Reason: Pain, Moderate (4-6) Oxycodone/Acetaminophen (Percocet 5/325) 2 tab PO Q8H PRN PRN Reason: Pain, Moderate (4-6) Last Admin: 05/10/19 02:27 Dose: 2 tab Documented by: Pantoprazole Sodium (Protonix) 40 mg PO DAILY [facility] Last Admin: 05/10/19 09:13 Dose: 40 mg Documented by: Potassium Chloride (K-Dur) 20 meq PO BID [facility] Last Admin: 05/10/19 09:13 Dose: 20 meq Documented by: Sodium Chloride (Sodium Chloride Flush Syringe 10 Ml) 10 ml IV PRN PRN PRN Reason: LINE FLUSH Past psychiatric history - Past Medical History Past Medical History: HIV/AIDS, seizures (Cerebral Palsy), stroke, other Past Surgical History: CABG - past Psychiatric treatment and history psychiatric treatment history: Hx of Anxiety. Denies a fam psy hx. - Social History Social history: other (Per the patient, he stated that he reside at personal residential) Mental Status Exam - Vital signs Last Vital Signs Temp 98.4 F 05/10/19 07:43 Pulse 77 05/10/19 09:16 Resp 18 05/10/19 07:43 BP 112/56 05/10/19 09:16 Pulse Ox 98 05/10/19 07:43 - Exam Narrative exam: MSE: Appearance: calm, cooperative Behavior: regular eye contact Speech: regular rate and tone Mood: "okay" Affect: congruent to mood Thought Process: logical Thought Content: denies SI/HI's and AVH's Motor Activity: sitting up in the bed Cognition: A/O x 3 Insight: appropriate Judgment: appropriate Results Result Diagrams: 05/10/19 05:55 05/10/19 05:55 Abnormal lab results 05/09/19 05/10/19 05/10/19 Range/Units 20:57 05:55 05:55 WBC 4.3 L (4.5-11.0) K/mm3 Sodium 134 L (137-145) mmol/L Chloride 97.7 L (98-107) mmol/L POC Glucose 131 H (70-105) 05/10/19 Range/Units 07:52 WBC (4.5-11.0) K/mm3 Sodium (137-145) mmol/L Chloride (98-107) mmol/L POC Glucose 129 H (70-105) All other labs normal. Assessment and Plan Assessment and plan: Impression: Hx of Anxiety DO and Depression. Conversion DO ruled out. Possible residual from previous stroke (left sided weakness). Today the patient was calm during the assessment. Recommendation/Plan: The patient has an appt with his psychiatrist for medication management this upcoming week. Psy sign off. Dispo: The patient can follow up with [facility] for outpatient psy services. Staffed with Dr Hiren Bedoya.
[2019-05-10 15:53] LABS: Basophils % (Manual) 0 % (0.0-1.8); Total Cells Counted 100
[2019-05-10 15:56] LABS: Anisocytosis 1+
== END 2019-05-10 15:20 | disposition home or self-care (01) | DRG 92 ==
LOC: ED 16:44 → 4A 19:14
PROVIDERS: ADMIT Internal Medicine; ATTEND Hospitalist
DX: R29.810 Facial weakness (principal); B20 Human immunodeficiency virus [HIV] disease; F17.203 Nicotine dependence unspecified, with withdrawal; I42.8 Other cardiomyopathies; R47.81 Slurred speech; M32.9 Systemic lupus erythematosus, unspecified; I25.10 Atherosclerotic heart disease of native coronary artery without angina pectoris; F43.10 Post-traumatic stress disorder, unspecified; F32.9 Major depressive disorder, single episode, unspecified; F41.9 Anxiety disorder, unspecified; G80.9 Cerebral palsy, unspecified; J44.9 Chronic obstructive pulmonary disease, unspecified; E11.9 Type 2 diabetes mellitus without complications; G89.4 Chronic pain syndrome; I11.0 Hypertensive heart disease with heart failure; I50.9 Heart failure, unspecified; Z95.1 Presence of aortocoronary bypass graft; Z82.49 Family history of ischemic heart disease and other diseases of the circulatory system; Z83.3 Family history of diabetes mellitus; Z88.8 Allergy status to other drugs, medicaments and biological substances; Z79.899 Other long term (current) drug therapy; Z79.4 Long term (current) use of insulin; Z71.6 Tobacco abuse counseling; I25.2 Old myocardial infarction
CPT/HCPCS: 36415; 70450; 70544; 70551; 80048; 80053; 80061; 80307; 81001; 82550; 82553; 82962; 84484; 85007; 85025; 85610; 85670; 85730; 93005; 93010; 93306; 93880; 94640; 94760; 99406; G0378; A9270-GY; Q0167

== ENCOUNTER 2019-06-05 10:41 | Inpatient (IN) | payer OTHER, MEDICARE ==
--- NOTE | 2019-06-05 11:12 | Emergency Department Report ---
ED Neuro Deficit HPI - General Stated Complaint: NEURO ISSUES - History of Present Illness Initial Comments: [facility] Date of Service: 06/05/2019 10:42:31 Impression: Right Hemispheric Comments: acute onset L sided weakness and slurred speech - concerning for R MCA syndrome. Recommend CTA head/neck to eval for LVO. If negative, recommend admission for stroke workup. Mechanism of Stroke: Possible Thromboembolic Possible Cardioembolic Metrics: Last Known Well: 06/05/2019 00:00:00 [employer] Notification Time: 06/05/2019 10:41:13 Arrival Time: 06/05/2019 10:41:23 Stamp Time: 06/05/2019 10:42:31 Time First Login Attempt: 06/05/2019 10:50:32 Video Start Time: 06/05/2019 10:50:32 Symptoms: slurred speech; L sided weakness NIHSS Start Assessment Time: 06/05/2019 11:03:12 Patient is not a candidate for tPA. Patient was not deemed candidate for tPA thrombolytics because of Last Well Known Above 4.5 Hours. Video End Time: 06/05/2019 11:08:55 CT head pending. Advanced imaging CTA head and neck recommended. ER physician not notified of the decision on thrombolytics management. Our recommendations are outlined below. Recommendations: Initiate Aspirin 325 MG Daily Recommended Scan: MRI Head Lipid Panel to Be Obtained, if Not Done in the Last Three Months Therapies: Physical Therapy, Occupational Therapy, Speech Therapy Assessment When Applicable Dysphaghia Screen: Swallow Evaluation, Bedside NPO Until Swallow Evaluation DVT prophylaxis: Lovenox or LMW Heparin Disposition: Follow up with Teleneurology Follow up Sign Out: Discussed with Emergency Department Provider History of Present Illness: Patient is a 53 years old Male. Patient was brought by EMS for symptoms of slurred speech; L sided weakness 53 yo man with acute onset difficulty speaking noted upon awakening this am. He was LSN at approx He has baseline L sided weakness from a previous stroke, which is worse than normal, as is his speech. He takes ASA but no other blood thinners. He had a CABG x [address] head was not reviewed. Examination: 1A: Level of Consciousness - Alert; keenly responsive + 0 1B: Ask Month and Age - 1 Question Right + 1 1C: Blink Eyes & Squeeze Hands - Performs Both Tasks + 0 2: Test Horizontal Extraocular Movements - Normal + 0 3: Test Visual Cam - No Visual Loss + 0 4: Test Facial Palsy (Use Grimace if Obtunded) - Normal symmetry + 0 5A: Test Left Arm Motor Drift - No Effort Against [place] + 3 5B: Test Right Arm Motor Drift - No Drift for 10 Seconds + 0 6A: Test Left Leg Motor Drift - No Effort Against [place] + 3 6B: Test Right Leg Motor Drift - No Drift for 5 Seconds + 0 7: Test Limb Ataxia (FNF/Heel-Love) - No Ataxia + 0 8: Test Sensation - Normal; No sensory loss + 0 9: Test Language/Aphasia - Mild-Moderate Aphasia: Some Obvious Changes, Without Significant Limitation + 1 10: Test Dysarthria - Severe Dysarthria: Unintelligble Slurring or Out of Proportion to Dysphasia + 2 11: Test Extinction/Inattention - No abnormality + 0 NIHSS Score: 10 Patient was informed the Neurology Consult would happen via TeleHealth consult by way of interactive audio and video telecommunications and consented to receiving care in this manner. Due to the immediate potential for life-threatening deterioration due to underlying acute neurologic illness, I spent 35 minutes providing critical care. This time includes time for face to face visit via telemedicine, review of medical records, imaging studies and discussion of findings with providers, the patient and/or family. Dr Mariano Hendrix [facility] - Related Data Home Medications: Home Medications Medication Instructions Recorded Confirmed Last Taken Furosemide [Lasix] 40 mg PO DAILY 09/21/18 05/08/19 12/21/18 Colace CAP 1 cap PO DAILY 12/23/18 05/08/19 Unknown ALBUTEROL NEB's 1 each IH PRN PRN 03/09/19 05/08/19 Unknown Advair Diskus 500-50 mcg 1 puff IH DAILY 03/09/19 05/08/19 Unknown Calcium Carbonate [Calcium 600MG 600 mg PO DAILY 03/09/19 05/08/19 Unknown TAB] Combivent Inhaler 1 puff IH DAILY 03/09/19 05/08/19 Unknown Dronabinol [Marinol] 10 mg PO TID 03/09/19 05/08/19 Unknown Insulin Aspart [NovoLOG Flexpen] 0 units SQ AC 03/09/19 05/08/19 Unknown Insulin NPH Hum/Reg Insulin Hm 0 units SQ BID 03/09/19 05/08/19 Unknown [Novolin 70-30 100 Unit/ml Vial] Oxycodone HCl/Acetaminophen 1 each PO Q6HR PRN 03/09/19 05/08/19 Unknown [Percocet 10/325 mg] Tapentadol HCl [Nucynta] 75 mg PO DAILY 03/09/19 05/08/19 Unknown Triumeq 600-50-300 mg Tablet 1 each PO DAILY 03/09/19 05/08/19 Unknown Previous Rx's Medication Instructions Recorded Last Taken Type Aspirin 325 mg PO QDAY tablet 05/10/19 Unknown Rx AtorvaSTATin [Lipitor] 40 mg PO QHS #30 tablet 05/10/19 Unknown Rx Clopidogrel [Plavix] 75 mg PO DAILY #30 tablet 05/10/19 Unknown Rx Metoprolol [Lopressor TAB] 100 mg PO BID #60 tablet 05/10/19 Unknown Rx Pantoprazole [Protonix TAB] 40 mg PO DAILY #30 tablet 05/10/19 Unknown Rx diphenhydrAMINE [Benadryl CAP] 50 mg PO Q8HR PRN #15 capsule 05/10/19 Unknown Rx levETIRAcetam [Keppra TAB] 750 mg PO BID #60 tablet 05/10/19 Unknown Rx Allergies/Adverse Reactions: Allergies Allergy/AdvReac Type Severity Reaction Status Date / Time metoclopramide [From Reglan] Allergy Anaphylaxis Verified 05/08/19 16:45 prochlorperazine Allergy Anaphylaxis Verified 05/08/19 16:45 [From Compazine] promethazine [From Phenergan] Allergy Anaphylaxis Verified 05/08/19 16:45 ED Review of Systems ROS: Stated complaint: NEURO ISSUES Other details as noted in HPI ED Past Medical Hx - Past Medical History Hx Hypertension: Yes Hx CVA: Yes (left sided weakness) Hx Heart Attack/AMI: Yes (2019) Hx Congestive Heart Failure: Yes Hx Diabetes: Yes Hx Seizures: Yes Hx Psychiatric Treatment: Yes (PTSD,depression) Hx Asthma: Yes Hx COPD: Yes Hx HIV: Yes Additional medical history: Cerebral palsy - Surgical History Additional Surgical History: CABG - Social History Smoking Status: Current Every Day Smoker Substance Use Type: None - Medications Home Medications: Home Medications Medication Instructions Recorded Confirmed Last Taken Type Furosemide [Lasix] 40 mg PO DAILY 09/21/18 05/08/19 12/21/18 History Colace CAP 1 cap PO DAILY 12/23/18 05/08/19 Unknown History ALBUTEROL NEB's 1 each IH PRN PRN 03/09/19 05/08/19 Unknown History Advair Diskus 500-50 mcg 1 puff IH DAILY 03/09/19 05/08/19 Unknown History Calcium Carbonate [Calcium 600MG 600 mg PO DAILY 03/09/19 05/08/19 Unknown History TAB] Combivent Inhaler 1 puff IH DAILY 03/09/19 05/08/19 Unknown History Dronabinol [Marinol] 10 mg PO TID 03/09/19 05/08/19 Unknown History Insulin Aspart [NovoLOG Flexpen] 0 units SQ AC 03/09/19 05/08/19 Unknown History Insulin NPH Hum/Reg Insulin Hm 0 units SQ BID 03/09/19 05/08/19 Unknown History [Novolin 70-30 100 Unit/ml Vial] Oxycodone HCl/Acetaminophen 1 each PO Q6HR PRN 03/09/19 05/08/19 Unknown History [Percocet 10/325 mg] Tapentadol HCl [Nucynta] 75 mg PO DAILY 03/09/19 05/08/19 Unknown History Triumeq 600-50-300 mg Tablet 1 each PO DAILY 03/09/19 05/08/19 Unknown History Aspirin 325 mg PO QDAY tablet 05/10/19 Unknown Rx AtorvaSTATin [Lipitor] 40 mg PO QHS #30 tablet 05/10/19 Unknown Rx Clopidogrel [Plavix] 75 mg PO DAILY #30 tablet 05/10/19 Unknown Rx Metoprolol [Lopressor TAB] 100 mg PO BID #60 tablet 05/10/19 Unknown Rx Pantoprazole [Protonix TAB] 40 mg PO DAILY #30 tablet 05/10/19 Unknown Rx diphenhydrAMINE [Benadryl CAP] 50 mg PO Q8HR PRN #15 capsule 05/10/19 Unknown Rx levETIRAcetam [Keppra TAB] 750 mg PO BID #60 tablet 05/10/19 Unknown Rx ED Neuro Physical Exam - General Suspected Stroke: Yes - NIHSS Assessment Interval: Baseline 1a. Level of Consciousness: alert/keenly responsive 1b. LOC Questions: answers both correctly 1c. LOC Commands: performs tasks correctly 2. Best Gaze: normal 3. Visual: no visual loss 4. Facial Palsy: normal symmetrical movement 5b. Motor Arm Right: no drift 5a. Motor Arm Left: no gravity effort 6a. Motor Leg Left: no drift 6b. Motor Leg Right: no gravity effort 7. Limb Ataxia: absent 8. Sensory: normal 9. Best Language: mild/moderate aphasia 10. Dysarthria: severe dysarthria 11. Extinction/Inattention: no abnormality Total Score: 9 Stroke Severity: Moderate Stroke ED Course Vital Signs 06/05/19 11:02 Temperature 98.1 F Pulse Rate 90 Respiratory 16 Rate Blood Pressure 131/83 O2 Sat by Pulse 97 Oximetry Critical care attestation.: If time is entered above; I have spent that time in minutes in the direct care of this critically ill patient, excluding procedure time. ED Disposition Clinical Impression: Left hemiparesis Disposition: OP ADMIT IP TO THIS HOSP Is pt being admited?: Yes Condition: Stable
[2019-06-05 11:13] LABS: Basophils % (Auto) 0.7 % (0.0-1.8); Eosinophils # (Auto) 0.1 K/mm3 (0.0-0.4); Eosinophils % (Auto) 1.8 % (0.0-4.3); Hematocrit 40.7 % (35.5-45.6); Hemoglobin 13.9 gm/dl (11.8-15.2); Lymphocytes # (Auto) 1.2 K/mm3 (1.2-5.4); Lymphocytes % (Auto) 31.5 % (13.4-35.0); Mean Corpuscular HGB Conc 34 % (32-34); Mean Corpuscular Volume 93 fl (84-94); Monocytes # (Auto) 0.6 K/mm3 (0.0-0.8); Monocytes % (Auto) 15.5 % (0.0-7.3); Platelet Count 208 K/mm3 (140-440); Red Blood Count 4.39 M/mm3 (3.65-5.03); Red Cell Distribution Width 14.1 % (13.2-15.2)
--- NOTE | 2019-06-05 11:21 | Emergency Department Report ---
ED General Adult HPI - General Chief complaint: Neuro Symptoms/Deficit Stated complaint: NEURO ISSUES Time Seen by Provider: 06/05/19 11:13 Source: patient, EMS Mode of arrival: Stretcher Limitations: Physical Limitation - History of Present Illness Initial comments: The patient presents to the emergency department with a chief complaint of left- sided weakness that was present upon awakening. Patient is also concerned about slurred speech as well. Patient denies chest pain, shortness breath, or abdominal pain. -: Sudden Severity scale (0 -10): 0 Consistency: constant Improves with: none Worsens with: none Associated Symptoms: denies other symptoms Treatments Prior to Arrival: none - Related Data Home Medications Medication Instructions Recorded Confirmed Last Taken ALBUTEROL Inhaler (OR & NICU) 2 puff IH Q4H PRN 06/05/19 06/05/19 Unknown [Proair] ARIPiprazole [Abilify] 15 mg PO DAILY 06/05/19 06/05/19 Unknown Aspirin [Adult Aspirin] 81 mg PO DAILY 06/05/19 06/05/19 Unknown Doxepin [SINEquan] 100 mg PO QHS 06/05/19 06/05/19 Unknown Fluticasone/Salmeterol(Nf) [Advair 2 puff IH BID 06/05/19 06/05/19 Unknown Hfa 230-21 Mcg Inhaler(Nf)] Furosemide [Lasix TAB] 40 mg PO QDAY 06/05/19 06/05/19 Unknown Insulin NPH Hum/Reg Insulin Hm 30 units SUB-Q QHS 06/05/19 06/05/19 Unknown [Novolin 70-30 Flexpen] Insulin NPH/Regular [Novolin 70/30] 20 units SUB-Q QAM 06/05/19 06/05/19 Unknown Ipratropium/Albuterol Sulfate 1 spray IH QID 06/05/19 06/05/19 Unknown [Combivent Respimat] Metoprolol [Lopressor] 100 mg PO BID 06/05/19 06/05/19 Unknown Mirtazapine [Remeron 15mg TAB] 15 mg PO QHS 06/05/19 06/05/19 Unknown Phenytoin [Dilantin] 300 mg PO QHS 06/05/19 06/05/19 Unknown Potassium Chloride [K-Dur] 20 meq PO QDAY 06/05/19 06/05/19 Unknown Rosuvastatin Calcium 40 mg PO QHS 06/05/19 06/05/19 Unknown busPIRone [Buspar] 10 mg PO BID 06/05/19 06/05/19 Unknown levETIRAcetam [Keppra TAB] 500 mg PO BID 06/05/19 06/05/19 Unknown Previous Rx's Medication Instructions Recorded Last Taken Type Clopidogrel [Plavix] 75 mg PO DAILY #30 tablet 05/10/19 Unknown Rx Allergies Allergy/AdvReac Type Severity Reaction Status Date / Time metoclopramide [From Reglan] Allergy Anaphylaxis Verified 05/08/19 16:45 prochlorperazine Allergy Anaphylaxis Verified 05/08/19 16:45 [From Compazine] promethazine [From Phenergan] Allergy Anaphylaxis Verified 05/08/19 16:45 ED Review of Systems ROS: Stated complaint: NEURO ISSUES Other details as noted in HPI Constitutional: denies: chills, fever Eyes: denies: eye pain, eye discharge, vision change ENT: denies: ear pain, throat pain Respiratory: denies: cough, shortness of breath, wheezing Cardiovascular: denies: chest pain, palpitations Endocrine: no symptoms reported Gastrointestinal: denies: abdominal pain, nausea, diarrhea Genitourinary: denies: urgency, dysuria Musculoskeletal: denies: back pain, joint swelling, arthralgia Skin: denies: rash, lesions Neurological: denies: weakness (left-sided weakness) Psychiatric: denies: anxiety, depression Hematological/Lymphatic: denies: easy bleeding, easy bruising ED Past Medical Hx - Past Medical History Previous Medical History?: Yes Hx Hypertension: Yes Hx CVA: Yes (left sided weakness) Hx Heart Attack/AMI: Yes (2019) Hx Congestive Heart Failure: Yes Hx Diabetes: Yes Hx Seizures: Yes Hx Psychiatric Treatment: Yes (PTSD,depression) Hx Asthma: Yes Hx COPD: Yes Hx HIV: Yes Additional medical history: Cerebral palsy - Surgical History Past Surgical History?: Yes Additional Surgical History: CABG - Social History Smoking Status: Current Every Day Smoker Substance Use Type: None - Medications Home Medications: Home Medications Medication Instructions Recorded Confirmed Last Taken Type Clopidogrel [Plavix] 75 mg PO DAILY #30 tablet 05/10/19 06/05/19 Unknown Rx ALBUTEROL Inhaler (OR & NICU) 2 puff IH Q4H PRN 06/05/19 06/05/19 Unknown History [Proair] ARIPiprazole [Abilify] 15 mg PO DAILY 06/05/19 06/05/19 Unknown History Aspirin [Adult Aspirin] 81 mg PO DAILY 06/05/19 06/05/19 Unknown History Doxepin [SINEquan] 100 mg PO QHS 06/05/19 06/05/19 Unknown History Fluticasone/Salmeterol(Nf) [Advair 2 puff IH BID 06/05/19 06/05/19 Unknown History Hfa 230-21 Mcg Inhaler(Nf)] Furosemide [Lasix TAB] 40 mg PO QDAY 06/05/19 06/05/19 Unknown History Insulin NPH Hum/Reg Insulin Hm 30 units SUB-Q QHS 06/05/19 06/05/19 Unknown History [Novolin 70-30 Flexpen] Insulin NPH/Regular [Novolin 70/30] 20 units SUB-Q QAM 06/05/19 06/05/19 Unknown History Ipratropium/Albuterol Sulfate 1 spray IH QID 06/05/19 06/05/19 Unknown History [Combivent Respimat] Metoprolol [Lopressor] 100 mg PO BID 06/05/19 06/05/19 Unknown History Mirtazapine [Remeron 15mg TAB] 15 mg PO QHS 06/05/19 06/05/19 Unknown History Phenytoin [Dilantin] 300 mg PO QHS 06/05/19 06/05/19 Unknown History Potassium Chloride [K-Dur] 20 meq PO QDAY 06/05/19 06/05/19 Unknown History Rosuvastatin Calcium 40 mg PO QHS 06/05/19 06/05/19 Unknown History busPIRone [Buspar] 10 mg PO BID 06/05/19 06/05/19 Unknown History levETIRAcetam [Keppra TAB] 500 mg PO BID 06/05/19 06/05/19 Unknown History ED Physical Exam - General Limitations: Physical Limitation General appearance: alert, in no apparent distress, other (slurred speech) - Head Head exam: Present: atraumatic, normocephalic - Eye Eye exam: Present: normal appearance, PERRL, EOMI, other (left hemianopsia) Pupils: Present: normal accommodation - ENT ENT exam: Present: mucous membranes moist - Neck Neck exam: Present: normal inspection - Respiratory Respiratory exam: Present: normal lung sounds bilaterally. Absent: respiratory distress, wheezes, rales - Cardiovascular Cardiovascular Exam: Present: regular rate, normal rhythm. Absent: systolic murmur, diastolic murmur, rubs, gallop - GI/Abdominal GI/Abdominal exam: Present: soft, normal bowel sounds. Absent: distended, tenderness - Rectal Rectal exam: Present: deferred - Extremities Exam Extremities exam: Present: normal inspection - Back Exam Back exam: Present: normal inspection - Neurological Exam Neurological exam: Present: alert, oriented X3, other (patient has no movement against gravity of the left upper or left lower extremity; patient has slurred speech; no facial droop present) - Psychiatric Psychiatric exam: Present: normal affect, normal mood - Skin Skin exam: Present: warm, dry, intact, normal color. Absent: rash ED Course Vital Signs 06/05/19 06/05/19 06/05/19 11:02 11:10 11:20 Temperature 98.1 F Pulse Rate 95 H 88 90 Respiratory 11 L 15 20 Rate Blood Pressure 131/83 135/72 121/73 O2 Sat by Pulse 97 94 90 Oximetry 06/05/19 06/05/19 06/05/19 11:30 11:40 11:50 Temperature Pulse Rate 87 83 83 Respiratory 20 17 17 Rate Blood Pressure 124/75 111/70 109/70 O2 Sat by Pulse 94 91 92 Oximetry 06/05/19 06/05/19 06/05/19 12:00 12:24 12:30 Temperature Pulse Rate 79 81 Respiratory 17 18 Rate Blood Pressure 112/71 112/71 113/68 O2 Sat by Pulse 93 95 Oximetry 06/05/19 06/05/19 13:00 13:30 Temperature Pulse Rate 87 83 Respiratory 20 13 Rate Blood Pressure 125/69 121/76 O2 Sat by Pulse 93 98 Oximetry ED Medical Decision Making - Lab Data Result diagrams: 06/05/19 11:01 06/05/19 11:01 Lab Results 06/05/19 06/05/19 06/05/19 Range/Units 11:01 11:01 11:01 WBC 3.9 L (4.5-11.0) K/mm3 RBC 4.39 (3.65-5.03) M/mm3 Hgb 13.9 (11.8-15.2) gm/dl Hct 40.7 (35.5-45.6) % MCV 93 (84-94) fl MCH 32 (28-32) pg MCHC 34 (32-34) % RDW 14.1 (13.2-15.2) % Plt Count 208 (140-440) K/mm3 Lymph % (Auto) 31.5 (13.4-35.0) % [place] % (Auto) 15.5 H (0.0-7.3) % Eos % (Auto) 1.8 (0.0-4.3) % Baso % (Auto) 0.7 (0.0-1.8) % Lymph # 1.2 (1.2-5.4) K/mm3 [place] # 0.6 (0.0-0.8) K/mm3 Eos # 0.1 (0.0-0.4) K/mm3 Baso # 0.0 (0.0-0.1) K/mm3 Seg Neutrophils % 50.5 (40.0-70.0) % Seg Neutrophils # 2.0 (1.8-7.7) K/mm3 PT 13.5 (12.2-14.9) Sec. INR 1.06 (0.87-1.13) APTT 27.5 (24.2-36.6) Sec. Thrombin Time 20.1 H (15.1-19.6) Sec. Sodium 138 (137-145) mmol/L Potassium 3.7 (3.6-5.0) mmol/L Chloride 103.3 (98-107) mmol/L Carbon Dioxide 24 (22-30) mmol/L Anion Gap 14 mmol/L BUN 15 (9-20) mg/dL Creatinine 0.9 (0.8-1.5) mg/dL Estimated GFR > 60 ml/min BUN/Creatinine Ratio 17 % Glucose 117 H (75-100) mg/dL Calcium 8.8 (8.4-10.2) mg/dL Troponin T < 0.010 (0.00-0.029) ng/mL - EKG Data -: EKG Interpreted by Il EKG shows normal: sinus rhythm Rate: normal - Radiology Data Radiology results: report reviewed - Medical Decision Making Discussed results with patient Critical Care Time: Yes Critical care time in (mins) excluding proc time.: 45 Critical care attestation.: If time is entered above; I have spent that time in minutes in the direct care of this critically ill patient, excluding procedure time. ED Disposition Clinical Impression: Left hemiparesis, CVA (cerebral vascular accident) Disposition: OP ADMIT IP TO THIS HOSP Is pt being admited?: Yes Does the pt Need Aspirin: Yes Condition: Fair Referrals: PRIMARY CARE, [Primary Care Provider] - 3-5 Days - Assessment Assessment Interval: Baseline - Level of Consciousness 1a. Level of Consciousness: alert/keenly responsive - LOC Questions 1b. LOC Questions: answers 1 question correctly - LOC Command 1c. LOC Commands: performs 1 task correctly - Best Gaze 2. Best Gaze: normal - Visual 3. Visual: complete hemianopia - Facial Palsy 4. Facial Palsy: normal symmetrical movement - Motor Arm 5a. Motor Arm Left: no gravity effort 5b. Motor Arm Right: no drift - Motor Leg 6a. Motor Leg Left: no gravity effort 6b. Motor Leg Right: no drift - Limb Ataxia 7. Limb Ataxia: absent - Sensory 8. Sensory: normal - Best Language 9. Best Language: no aphasia - Dysarthria 10. Dysarthria: mild/moderate dysarthria - Extinction and Inattention 11. Extinction/Inattention: no abnormality - Scoring Total Score: 11 Stroke Severity: Moderate Stroke
--- NOTE | 2019-06-05 11:25 | Cat Scan Report ---
CT HEAD WITHOUT CONTRAST INDICATION : neuro deficits <6hrs or sx present upon awakening. Code stroke. TECHNIQUE: Axial imaging performed from the skull apex through the skull base without the use of con trast. Sagittal and coronal reformatted images. All CT scans at this location are performed using C T dose reduction for ALARA by means of automated exposure control. COMPARISON: 05/08/2019 FINDINGS: Parenchyma: The left MCA appears slightly hyperdense within the left sylvian fissure which is best d emonstrated on image 28, series 2. Focal left MCA thrombosis is difficult to exclude. This is not lenin ntified on the previous study. There is mild diffuse atrophy of the right cerebral hemisphere which i s presumably developmental in nature. This was also noted on previous exams. The brain parenchyma dem onstrates normal attenuation. No evidence for hemorrhage, mass or large area of acute ischemia. No ch ronic infarct is identified. Ventricles: There is mild compensatory enlargement of the right lateral ventricle secondary to volum e loss. Ventricular size appears within normal limits otherwise. Bones: No acute osseous abnormality. Sinuses: Sinuses and mastoid air cells are clear. Soft tissues: Soft tissues including the orbits appear normal. IMPRESSION: Question focal thrombosis in the left MCA. No evidence for hemorrhage or large area of ac buzz ischemia on CT. Chronic volume loss throughout the right cerebral hemisphere which appears develo pmental in nature. These findings were discussed with Dr. Shi in the emergency department at 1114 hours Eastern standar d time. Signer Name: Syed Arnold Jr, MD Signed: 06/05/2019 11:20 AM Workstation Name: [id number]
[2019-06-05 11:29] LABS: BUN/Creatinine Ratio 17; Blood Urea Nitrogen 15 mg/dL (9-20); Calcium 8.8 mg/dL (8.4-10.2); Hemolysis Index 8; INR 1.06 (0.87-1.13)
[2019-06-05 11:31] LABS: Partial Thromboplastin Time 27.5 Sec. (24.2-36.6)
[2019-06-05 11:48] LABS: Thrombin Time 20.1 Sec. (15.1-19.6)
--- NOTE | 2019-06-05 13:37 | Cat Scan Report ---
CTA neck with and without contrast CLINICAL HISTORY: Cerebrovascular accident. Technique: Multiple contiguous postcontrast axial CT images of the neck were obtained at 0.63 mm inte rvals. 3 plane MIP reconstructions were produced. Precontrast localizing images were also performed. All CT scans at this location are performed using the CT dose reduction for ALARA by means of automat ed exposure control. FINDINGS: There is minimal plaque involving right carotid bifurcation. However, there is no significa nt stenosis by NASCET criteria involving the bifurcations at. Unfortunately, the motion significantly degrades segment of the mid cervical ICAs. However, there is grossly no significant narrowing. The c ommon carotid arteries are unremarkable. The corresponding mid segments of the vertebral arteries are also significant degraded by the motion artifact. However, the visualized vertebral arteries demonstrate appropriate caliber without focal na rrowing. The arch of vessels are unremarkable. IMPRESSION: The motion degrades image quality obscures the mid cervical vessels as detailed above. However, there is no significant stenosis involving the visualized carotid or vertebral arteries by NASCET criteria . Signer Name: Juan Truong MD Signed: 06/05/2019 1:32 PM Workstation Name: [id number]
--- NOTE | 2019-06-05 13:43 | Cat Scan Report ---
CTA head with and without IV contrast. CLINICAL HISTORY: Cerebrovascular accident. Technique: Multiple contiguous postcontrast CT images of the head were obtained at 0.63 mm intervals. 3 plane MIP reconstructions were obtained. Precontrast localizing images were also performed. CT scan s at this location are performed using the CT dose reduction for [email or web address] by means of automated exposure control. FINDINGS: The motion degrades the image quality . However, there is no clear CTA evidence of signific ant focal stenosis involving distal internal carotid arteries or vertebrobasilar system. On the [facility] noncontrast CT, there was relative atrophy of the right cerebral hemisphere with prominence of the ventricular system. There appears be a corresponding relative hypoplasia of the right-sided vessels. However, the proximal cerebral arteries also demonstrate appropriate caliber. The more distal branch es are obscured by the degree of motion though there is no clear evidence of occlusion. Furthermore, there is no CTA evidence of intracranial aneurysm. The dural venous sinuses opacify with contrast. On the earlier CT, there is suspicion for thrombus within the left MCA trifurcation. The trifurcation vessels opacify with contrast without evidence of a thrombosis in this region. IMPRESSION: The motion degrades the image quality at. However, there is no clear CT evidence of significant focal stenosis involving intracranial vessels. Signer Name: Juan Truong MD Signed: 06/05/2019 1:39 PM Workstation Name: [id number]
[2019-06-05] MEDS ORDERED: BABY ASPIRIN PO ONE (14:18)
--- NOTE | 2019-06-05 14:18 | History and Physical Report ---
History of Present Illness Chief complaint: Im weak on my left side History of present illness: 53 YO Male with HIV, CVA, CP, SLE, CAD S/P CABG, PA, Cardiomyopathy, DM, PTSD, Depression, HTN, Asthma, Chronic Pain Syndrome, COPD, Nicotine Dependence presents to ED for evaluation. Pt states that he was in his usual state of health at bedtime which was around 2130 hrs. Pt states that he awoke from sleep this morning with Left arm and leg weakness, left sided facial drooping and slurred speech. Pt transported to [facility] via private vehicle. Pt seen and evaluated in ED and found to have neurologic deficit. A code stroke was called and the patient was initiated on CVA protocol. Teleneurology consulted. Pt deemed not a candidate for TPA. Pt admitted to telemetry. Neurology consulted in ED. Pt denies fever, chills, CP, Palpitations, NVD, Trauma, BRBPR, Productive cough, skin rash, or recent ill contacts. Prior admission on 05/08/19 reviewed. All listed medication reconciled at time of admission. Past History Past Medical History: acute PA, COPD, diabetes, heart failure, HIV/AIDS, hypertension, seizures, other (PTSSD, Depression) Past Surgical History: No surgical history, Other (reviewed) Social history: , lives with family, smoking Family history: diabetes, hypertension Medications and Allergies Allergies Allergy/AdvReac Type Severity Reaction Status Date / Time metoclopramide [From Reglan] Allergy Anaphylaxis Verified 05/08/19 16:45 prochlorperazine Allergy Anaphylaxis Verified 05/08/19 16:45 [From Compazine] promethazine [From Phenergan] Allergy Anaphylaxis Verified 05/08/19 16:45 Home Medications Medication Instructions Recorded Confirmed Last Taken Type Clopidogrel [Plavix] 75 mg PO DAILY #30 tablet 05/10/19 06/05/19 Unknown Rx ALBUTEROL Inhaler (OR & NICU) 2 puff IH Q4H PRN 06/05/19 06/05/19 Unknown History [Proair] ARIPiprazole [Abilify] 15 mg PO DAILY 06/05/19 06/05/19 Unknown History Aspirin [Adult Aspirin] 81 mg PO DAILY 06/05/19 06/05/19 Unknown History Doxepin [SINEquan] 100 mg PO QHS 06/05/19 06/05/19 Unknown History Fluticasone/Salmeterol(Nf) [Advair 2 puff IH BID 06/05/19 06/05/19 Unknown History Hfa 230-21 Mcg Inhaler(Nf)] Furosemide [Lasix TAB] 40 mg PO QDAY 06/05/19 06/05/19 Unknown History Insulin NPH Hum/Reg Insulin Hm 30 units SUB-Q QHS 06/05/19 06/05/19 Unknown History [Novolin 70-30 Flexpen] Insulin NPH/Regular [Novolin 70/30] 20 units SUB-Q QAM 06/05/19 06/05/19 Unknown History Ipratropium/Albuterol Sulfate 1 spray IH QID 06/05/19 06/05/19 Unknown History [Combivent Respimat] Metoprolol [Lopressor] 100 mg PO BID 06/05/19 06/05/19 Unknown History Mirtazapine [Remeron 15mg TAB] 15 mg PO QHS 06/05/19 06/05/19 Unknown History Phenytoin [Dilantin] 300 mg PO QHS 06/05/19 06/05/19 Unknown History Potassium Chloride [K-Dur] 20 meq PO QDAY 06/05/19 06/05/19 Unknown History Rosuvastatin Calcium 40 mg PO QHS 06/05/19 06/05/19 Unknown History busPIRone [Buspar] 10 mg PO BID 06/05/19 06/05/19 Unknown History levETIRAcetam [Keppra TAB] 500 mg PO BID 06/05/19 06/05/19 Unknown History Review of Systems Constitutional: no weight loss, no weight gain, no fever, no chills Ears, nose, mouth and throat: no ear pain, no ear discharge, no decreased hearing, no nose pain, no nasal congestion, no nasal discharge Cardiovascular: no chest pain, no orthopnea, no palpitations, no rapid/irregular heart beat, no syncope, no lightheadedness Respiratory: no cough, no cough with sputum, no excessive sputum, no hemoptysis, no shortness of breath, no dyspnea on exertion Gastrointestinal: no abdominal pain, no nausea, no vomiting, no diarrhea, no constipation, no change in bowel habits Genitourinary Male: no dysuria, no hematuria, no flank pain, no discharge, no incontinence Rectal: no pain, no incontinence Musculoskeletal: no neck pain, no arm numbness/tingling, no low back pain, no shooting leg pain Integumentary: no rash, no pruritis, no boils, no lesions, no depigmentation, no acne, no dryness Neurological: weakness, numbness, lack of coordination, change in speech, no head injury, no seizures, no syncope, no memory loss, no hearing difficulties Psychiatric: no anxiety, no memory loss, no change in sleep habits, no sleep disturbances, no insomnia, no hypersomnia Endocrine: no cold intolerance, no heat intolerance, no polyphagia, no excessive thirst, no polydipsia, no nocturia Hematologic/Lymphatic: no easy bruising, no easy bleeding, no lymphadenopathy, no lymphedema Allergic/Immunologic: no urticaria, no allergic rhinitis, no persistent infections, no anaphylaxis Exam - Constitutional Vitals: Temp Pulse Resp BP Pulse Ox 98.1 F 83 13 121/76 98 06/05/19 11:02 06/05/19 13:30 06/05/19 13:30 06/05/19 13:30 06/05/19 13:30 General appearance: Present: mild distress - EENT Eyes: Present: PERRL ENT: hearing intact, clear oral mucosa - Neck Neck: Present: supple, normal ROM - Respiratory Respiratory effort: normal Respiratory: bilateral: CTA - Cardiovascular Heart Sounds: Present: S1 & S2. Absent: rub, click - Extremities Extremities: pulses symmetrical, No edema Peripheral Pulses: within normal limits - Abdominal General gastrointestinal: Present: soft, non-tender, non-distended, normal bowel sounds Male genitourinary: Present: normal - Integumentary Integumentary: Present: clear, warm, dry - Musculoskeletal Musculoskeletal: left sided weakness - Psychiatric Psychiatric: no appropriate mood/affect, no intact judgment & insight, no memory intact - Neurologic Neurologic: CNII-XII intact, moves all extremities, no gait normal Results - Labs CBC & Chem 7: 06/05/19 11:01 06/05/19 11: Labs: Abnormal lab results 06/05/19 06/05/19 06/05/19 Range/Units 11:01 11:01 11:01 WBC 3.9 L (4.5-11.0) K/mm3 [place] % (Auto) 15.5 H (0.0-7.3) % Thrombin Time 20.1 H (15.1-19.6) Sec. Glucose 117 H (75-100) mg/dL Assessment and Plan - Patient Problems (1) CVA (cerebral vascular accident) Current Visit: Yes Status: Acute Qualifiers: Precerebral and cerebral artery: middle cerebral artery Laterality of affected vessel: right Plan to address problem: CT head, Neurology consulted in ED, MRI Brain, MRA brain, Carotid Doppler, neuro check, PT/OT/Speech, Echo, antiplatelet therapy, lipid panel, statin therapy. (2) Nicotine dependence unspecified, with withdrawal Current Visit: No Status: Acute Qualifiers: Nicotine product type: cigarettes Qualified Code(s): F17.213 - Nicotine dependence, cigarettes, with withdrawal Plan to address problem: supportive care, smoking cessation counseling, supportive care. (3) Seizure Current Visit: No Status: Acute Plan to address problem: Antiepileptic drug therapy, neuro check, supportive care. (4) COPD (chronic obstructive pulmonary disease) Current Visit: No Status: Chronic Qualifiers: Chronic bronchitis type: mixed simple and mucopurulent Plan to address problem: supplemental oxygen, nebulizer therapy, pulse oximetry, supportive care. (5) Cerebral palsy Current Visit: No Status: Chronic Qualifiers: Cerebral palsy type: other type Qualified Code(s): G80.8 - Other cerebral palsy Plan to address problem: Supportive care, (6) HIV (human immunodeficiency virus infection) Current Visit: No Status: Chronic Plan to address problem: supportive care, Outpatient I/D F/U care. (7) Hypertension Current Visit: No Status: Chronic Qualifiers: Hypertension type: essential hypertension Qualified Code(s): I10 - Essential (primary) hypertension Plan to address problem: monitor BP q shift, continue medical management, (8) Diabetes Current Visit: Yes Status: Acute Plan to address problem: ADA diet, insulin, accu check, hypoglycemia protocol (9) CHF (congestive heart failure) Current Visit: Yes Status: Acute Qualifiers: Heart failure chronicity: chronic Plan to address problem: supplemental oxygen, strict I/O, daily weight, chest x ray, afterload reduction, pulse oximetry (10) PTSD (post-traumatic stress disorder) Current Visit: Yes Status: Acute Plan to address problem: Supportive care, continue medical management. (11) Depression Current Visit: Yes Status: Acute Plan to address problem: supportive care. (12) DVT prophylaxis Current Visit: No Status: Acute Plan to address problem: SCD to BLE while in bed, prophylactic heparin
[2019-06-05] MEDS ORDERED: PHENERGAN PR PRN (14:30)
[2019-06-05] MEDS ORDERED: TYLENOL PO PRN (14:30)
[2019-06-05] MEDS ORDERED: REGLAN PO PRN (14:30)
[2019-06-05] MEDS ORDERED: SODIUM CHLORIDE FLUSH SYRINGE 10 ML IV PRN (14:30)
[2019-06-05] MEDS ORDERED: DULCOLAX PR PRN (14:30)
[2019-06-05] MEDS ORDERED: ZOFRAN IV PRN (14:30)
[2019-06-05] MEDS ORDERED: MILK OF MAGNESIA PO PRN (14:30)
[2019-06-05] MEDS ORDERED: PROAIR IH PRN (14:38)
[2019-06-05] MEDS ORDERED: PROVENTIL IH PRN (14:48)
--- NOTE | 2019-06-05 15:59 | Vascular Lab Report ---
BILATERAL CAROTID DOPPLER ULTRASOUND INDICATION : stroke TECHNIQUE: Grayscale and color Doppler imaging performed through the neck. COMPARISON: None FINDINGS: Right: There is minimal calcified plaque in the right carotid bulb. Peak systolic velocity in the C CA is 82 cm/s with end-diastolic velocity of 19 cm/s. Peak systolic velocity in the proximal ICA is 7 6 cm/s with end-diastolic velocity of 31 cm/s. ICA to CCA ratio is less than 2. There is antegrade f low in the ECA and the vertebral artery. Left: There is minimal soft plaque in the left carotid bulb. Peak systolic velocity in the CCA is 77 cm/s with end-diastolic velocity of 26 cm/s. Peak systolic velocity in the proximal ICA is 77 cm/s wi th end-diastolic velocity of 33 cm/s. ICA to CCA ratio is less than 2. There is antegrade flow in th e ECA and the vertebral artery. IMPRESSION: No hemodynamically significant stenosis by NASCET criteria. Signer Name: Syed Arnold Jr, MD Signed: 06/05/2019 3:55 PM Workstation Name: [id number]
[2019-06-05] MEDS ORDERED: ORAPRED PO SCH (16:00)
[2019-06-05] MEDS ORDERED: FLUTICASONE IH SCH (22:00)
[2019-06-05] MEDS ORDERED: NON-FORMULARY (Rosuvastatin Calcium [Rosuvastatin Calcium] 40 MG) PO SCH (22:00)
[2019-06-05] MEDS ORDERED: SALMETEROL IH SCH (22:00)
[2019-06-05] MEDS: SINEquan PO SCH (22:46)
[2019-06-05] MEDS: REMERON PO SCH (22:46)
[2019-06-05] MEDS: KEPPRA PO SCH (22:48)
[2019-06-05] MEDS: BUSPAR PO SCH (22:48)
[2019-06-05] MEDS: DILANTIN PO SCH (22:48)
[2019-06-06] MEDS: PULMICORT IH SCH ×3 (08:14→19:37)
[2019-06-06] MEDS: BROVANA NEBU IH SCH ×3 (08:15→19:37)
[2019-06-06] MEDS: PERCOCET 5/325 PO PRN ×2 (10:11→23:40)
[2019-06-06] MEDS: K-DUR PO SCH (10:12)
[2019-06-06] MEDS: ABILIFY PO SCH (10:12)
[2019-06-06] MEDS: HALFPRIN EC PO SCH (10:12)
[2019-06-06] MEDS: LASIX PO SCH (10:12)
[2019-06-06] MEDS: PLAVIX PO SCH (10:12)
[2019-06-06] MEDS: KEPPRA PO SCH ×2 (10:12→22:48)
[2019-06-06] MEDS: BUSPAR PO SCH ×2 (10:12→22:48)
--- NOTE | 2019-06-06 15:11 | Progress Note ---
Assessment and Plan Assessment and plan: CVA (cerebral vascular accident) CT head negative, Neurology consulted in ED, MRI Brain, MRA brain, Carotid Doppler, neuro check, PT/OT/Speech, Echo, antiplatelet therapy, lipid panel, statin therapy. Nicotine dependence unspecified, with withdrawal supportive care, smoking cessation counseling, supportive care. Seizure Antiepileptic drug therapy, neuro check, supportive care. COPD (chronic obstructive pulmonary disease) supplemental oxygen, nebulizer therapy, pulse oximetry, supportive care. Cerebral palsy Supportive care, HIV (human immunodeficiency virus infection) supportive care, Outpatient I/D F/U care. Hypertension monitor BP q shift, continue medical management, Diabetes ADA diet, insulin, accu check, hypoglycemia protocol CHF (congestive heart failure) supplemental oxygen, strict I/O, daily weight, chest x ray, afterload reduction, pulse oximetry PTSD (post-traumatic stress disorder) Supportive care, continue medical management. Depression supportive care. DVT prophylaxis SCD to BLE while in bed, prophylactic heparin History Interval history: No new issues Hospitalist Physical - Constitutional Vitals: Temp Pulse Resp BP Pulse Ox 98.0 F 75 20 97/65 96 06/06/19 04:23 06/06/19 08:15 06/06/19 11:11 06/06/19 04:23 06/06/19 08:15 General appearance: Present: no acute distress - EENT Eyes: Present: PERRL, EOM intact ENT: hearing intact, clear oral mucosa, dentition normal - Neck Neck: Present: supple, normal ROM - Respiratory Respiratory effort: normal Respiratory: bilateral: CTA - Cardiovascular Rhythm: regular Heart Sounds: Present: S1 & S2. Absent: gallop, rub - Extremities Extremities: no ischemia, No edema, Full ROM - Abdominal General gastrointestinal: soft, non-tender, non-distended, normal bowel sounds - Integumentary Integumentary: Present: clear, warm, dry - Neurologic Neurologic: CNII-XII intact, moves all extremities Results - Labs CBC & Chem 7: 06/05/19 11:01 06/05/19 11:01 Labs: Laboratory Last Values WBC 3.9 K/mm3 (4.5-11.0) L 06/05/19 11:01 RBC 4.39 M/mm3 (3.65-5.03) 06/05/19 11:01 Hgb 13.9 gm/dl (11.8-15.2) 06/05/19 11:01 Hct 40.7 % (35.5-45.6) 06/05/19 11:01 MCV 93 fl (84-94) 06/05/19 11:01 MCH 32 pg (28-32) 06/05/19 11:01 MCHC 34 % (32-34) 06/05/19 11:01 RDW 14.1 % (13.2-15.2) 06/05/19 11:01 Plt Count 208 K/mm3 (140-440) 06/05/19 11:01 Lymph % (Auto) 31.5 % (13.4-35.0) 06/05/19 11:01 [place] % (Auto) 15.5 % (0.0-7.3) H 06/05/19 11:01 Eos % (Auto) 1.8 % (0.0-4.3) 06/05/19 11:01 Baso % (Auto) 0.7 % (0.0-1.8) 06/05/19 11:01 Lymph # 1.2 K/mm3 (1.2-5.4) 06/05/19 11:01 [place] # 0.6 K/mm3 (0.0-0.8) 06/05/19 11:01 Eos # 0.1 K/mm3 (0.0-0.4) 06/05/19 11:01 Baso # 0.0 K/mm3 (0.0-0.1) 06/05/19 11:01 Seg Neutrophils % 50.5 % (40.0-70.0) 06/05/19 11:01 Seg Neutrophils # 2.0 K/mm3 (1.8-7.7) 06/05/19 11:01 PT 13.5 Sec. (12.2-14.9) 06/05/19 11:01 INR 1.06 (0.87-1.13) 06/05/19 11:01 APTT 27.5 Sec. (24.2-36.6) 06/05/19 11:01 20.1 Sec. (15.1-19.6) H 06/05/19 11:01 Sodium 138 mmol/L (137-145) 06/05/19 11:01 Potassium 3.7 mmol/L (3.6-5.0) 06/05/19 11:01 Chloride 103.3 mmol/L (98-107) 06/05/19 11:01 Carbon Dioxide 24 mmol/L (22-30) 06/05/19 11:01 14 mmol/L 06/05/19 11:01 BUN 15 mg/dL (9-20) 06/05/19 11:01 0.9 mg/dL (0.8-1.5) 06/05/19 11:01 Estimated GFR > 60 ml/min 06/05/19 11:01 17 % 06/05/19 11:01 Glucose 117 mg/dL (75-100) H 06/05/19 11:01 POC Glucose 104 (70-105) 06/06/19 13:00 Calcium 8.8 mg/dL (8.4-10.2) 06/05/19 11:01 < 0.010 ng/mL (0.00-0.029) 06/05/19 11:01 Active Medications - Current Medications Current Medications: Generic Name Dose Route Start Last Admin Trade Name Freq PRN Reason Stop Dose Admin Acetaminophen 650 mg 06/05/19 14:30 Tylenol PO Q4H PRN Pain, Mild (1-3) Albuterol 2.5 mg 06/05/19 14:48 Proventil IH Q4HRT PRN Shortness Of Breath Arformoterol Tartrate 15 mcg 06/05/19 20:00 06/06/19 08:15 Brovana Nebu IH 15 mcg Q12HRT DEBRA Administration Aripiprazole 15 mg 06/06/19 10:00 06/06/19 10:12 Abilify PO 15 mg DAILY DEBRA Administration Aspirin 81 mg 06/06/19 10:00 06/06/19 10:12 Halfprin Ec PO 81 mg DAILY DEBRA Administration Atorvastatin Calcium 80 mg 06/05/19 22:00 06/05/19 22:45 Lipitor PO 80 mg QHS DEBRA Administration Bisacodyl 10 mg 06/05/19 14:30 Dulcolax NM QDAY PRN Constipation Budesonide 0.5 mg 06/05/19 20:00 06/06/19 08:15 Pulmicort IH 0.5 mg Q12HRT DEBRA Administration Buspirone HCl 10 mg 06/05/19 22:00 06/06/19 10:12 Buspar PO 10 mg BID DEBRA Administration Clopidogrel Bisulfate 75 mg 06/06/19 10:00 06/06/19 10:12 Plavix PO 75 mg DAILY DEBRA Administration Doxepin HCl 100 mg 06/05/19 22:00 06/05/19 22:46 Sinequan PO 100 mg QHS DEBRA Administration Furosemide 40 mg 06/06/19 10:00 06/06/19 10:12 Lasix PO 40 mg QDAY DEBRA Administration Levetiracetam 500 mg 06/05/19 22:00 06/06/19 10:12 Keppra PO 500 mg BID DEBRA Administration Magnesium Hydroxide 30 ml 06/05/19 14:30 Milk Of Magnesia PO Q4H PRN Constipation Metoclopramide HCl 10 mg 06/05/19 14:30 Reglan PO Q6H PRN Nausea And Vomiting Mirtazapine 15 mg 06/05/19 22:00 06/05/19 22:46 Remeron PO 15 mg QHS DEBRA Administration Ondansetron HCl 4 mg 06/05/19 14:30 Zofran IV Q8H PRN Nausea And Vomiting Oxycodone/Acetaminophen 2 tab 06/05/19 23:25 06/06/19 10:11 Percocet 5/325 PO 2 tab Q6H PRN Administration Pain, Moderate (4-6) Phenytoin 300 mg 06/05/19 22:00 06/05/19 22:48 Dilantin PO 300 mg QHS DEBRA Administration Potassium Chloride 20 meq 06/06/19 10:00 06/06/19 10:12 K-Dur PO 20 meq QDAY DEBRA Administration Promethazine HCl 25 mg 06/05/19 14:30 Phenergan NM Q6H PRN Nausea And Vomiting Sodium Chloride 10 ml 06/05/19 14:30 Sodium Chloride Flush Syringe 10 Ml IV PRN PRN LINE FLUSH Nutrition/Malnutrition Assess - Dietary Evaluation Nutrition/Malnutrition Findings: Nutrition Notes Start: 06/06/19 14:24 Freq: Status: Active Protocol: Document 06/06/19 14:24 RS (Rec: 06/06/19 14:33 RS [id number]) Co-Sign 06/06/19 14:24 LP Nutrition Notes Need for Assessment generated from: [email or web address] Initial or Follow up Brief Note Current Diagnosis COPD,Coronary Artery Disease, Diabetes,Hypertension,Heart Failure Other Pertinent Diagnosis HIV Current Diet Cardiac/Consistent Carb Diet Labs/Tests reviewed Pertinent Medications Lasix, KCl, Remeron Height 5 ft 11 in Weight 83.3 kg [place] Body Weight (kg) 78.18 BMI 25.6 Intake Prior to Admission Excellent Weight Status Overweight Subjective/Other Information Observed 100% of bfast consumed. Pt self reports drinking 3 Ensure Enlive TID Percent of energy/protein needs met: 100% Burn Absent Trauma Absent #1 Nutrition Diagnosis No nutrition diagnosis at this time Nutrition Intervention Change Diet Order: Continue cardiac/ consistent carb diet Revisit per MD consult or patient Sign Off request:
--- NOTE | 2019-06-06 15:47 | Magnetic Resonance Report ---
MRI BRAIN WITHOUT CONTRAST INDICATION / CLINICAL INFORMATION: MAIN: stroke, lt arm and leg weakness. TECHNIQUE: Multisequence, multiplanar images were obtained. COMPARISON: CT head dated 06/05/2019. MR brain dated 05/09/2019 FINDINGS: CEREBRAL and CEREBELLAR HEMISPHERES: No evidence of mass or mass effect. No midline shift. No acute hemorrhage. No diffusion restriction to suggest acute infarct. No extra-axial fluid collection. T here is mild diffuse atrophy of the right cerebral hemisphere which appears to be developmental. VENTRICLES: Normal in size and configuration for age. VISUALIZED ORBITS: No significant abnormality. VISUALIZED PARANASAL SINUSES: No significant abnormality. ADDITIONAL FINDINGS: None. IMPRESSION: 1. No acute intracranial abnormality. Atrophy of the right cerebral hemisphere which appears developm ental. No significant change since 05/09/2019. MRA HEAD WITHOUT CONTRAST HISTORY: Stroke, left arm and leg weakness COMPARISON: 05/09/2019 TECHNIQUE: Routine MRA of the head is performed. 3-D/MIP reformats postprocessed. CONTRAST: None. FINDINGS: Intracranial vertebral arteries: No significant abnormality. Basilar artery: No significant abnormality. Posterior cerebral arteries: No significant abnormality. Intracranial internal carotid arteries: No significant abnormality. Anterior cerebral arteries: No significant abnormality. Middle cerebral arteries: No significant abnormality. Additional findings: None. IMPRESSION: 1. No significant abnormality. Signer Name: Syed Arnold Jr, MD Signed: 06/06/2019 3:42 PM Workstation Name: [id number]
--- NOTE | 2019-06-06 16:22 | Consultation ---
History of Present Illness Consult date: 06/06/19 Past History Past Medical History: acute MS, COPD, diabetes, heart failure, HIV/AIDS, hypertension, seizures, other (PTSSD, Depression) Past Surgical History: No surgical history, Other (reviewed) Social history: , lives with family, smoking Family history: diabetes, hypertension Medications and Allergies Allergies Allergy/AdvReac Type Severity Reaction Status Date / Time metoclopramide [From Reglan] Allergy Anaphylaxis Verified 05/08/19 16:45 prochlorperazine Allergy Anaphylaxis Verified 05/08/19 16:45 [From Compazine] promethazine [From Phenergan] Allergy Anaphylaxis Verified 05/08/19 16:45 Home Medications Medication Instructions Recorded Confirmed Last Taken Type Clopidogrel [Plavix] 75 mg PO DAILY #30 tablet 05/10/19 06/05/19 Unknown Rx ALBUTEROL Inhaler (OR & NICU) 2 puff IH Q4H PRN 06/05/19 06/05/19 Unknown History [Proair] ARIPiprazole [Abilify] 15 mg PO DAILY 06/05/19 06/05/19 Unknown History Aspirin [Adult Aspirin] 81 mg PO DAILY 06/05/19 06/05/19 Unknown History Doxepin [SINEquan] 100 mg PO QHS 06/05/19 06/05/19 Unknown History Fluticasone/Salmeterol(Nf) [Advair 2 puff IH BID 06/05/19 06/05/19 Unknown History Hfa 230-21 Mcg Inhaler(Nf)] Furosemide [Lasix TAB] 40 mg PO QDAY 06/05/19 06/05/19 Unknown History Insulin NPH Hum/Reg Insulin Hm 30 units SUB-Q QHS 06/05/19 06/05/19 Unknown History [Novolin 70-30 Flexpen] Insulin NPH/Regular [Novolin 70/30] 20 units SUB-Q QAM 06/05/19 06/05/19 Unknown History Ipratropium/Albuterol Sulfate 1 spray IH QID 06/05/19 06/05/19 Unknown History [Combivent Respimat] Metoprolol [Lopressor] 100 mg PO BID 06/05/19 06/05/19 Unknown History Mirtazapine [Remeron 15mg TAB] 15 mg PO QHS 06/05/19 06/05/19 Unknown History Oxycodone HCl/Acetaminophen 1 each PO Q6HR PRN 06/05/19 06/05/19 Unknown History [Percocet 10/325 mg] Phenytoin [Dilantin] 300 mg PO QHS 06/05/19 06/05/19 Unknown History Potassium Chloride [K-Dur] 20 meq PO QDAY 06/05/19 06/05/19 Unknown History Rosuvastatin Calcium 40 mg PO QHS 06/05/19 06/05/19 Unknown History busPIRone [Buspar] 10 mg PO BID 06/05/19 06/05/19 Unknown History levETIRAcetam [Keppra TAB] 500 mg PO BID 06/05/19 06/05/19 Unknown History Active Meds: Active Medications Acetaminophen (Tylenol) 650 mg PO Q4H PRN PRN Reason: Pain, Mild (1-3) Albuterol (Proventil) 2.5 mg IH Q4HRT PRN PRN Reason: Shortness Of Breath Arformoterol Tartrate (Brovana Nebu) 15 mcg IH Q12HRT [facility] Last Admin: 06/06/19 08:15 Dose: 15 mcg Documented by: Aripiprazole (Abilify) 15 mg PO DAILY [facility] Last Admin: 06/06/19 10:12 Dose: 15 mg Documented by: Aspirin (Halfprin Ec) 81 mg PO DAILY [facility] Last Admin: 06/06/19 10:12 Dose: 81 mg Documented by: Atorvastatin Calcium (Lipitor) 80 mg PO QHS [facility] Last Admin: 06/05/19 22:45 Dose: 80 mg Documented by: Bisacodyl (Dulcolax) [address] QDAY PRN PRN Reason: Constipation Budesonide (Pulmicort) 0.5 mg IH Q12HRT [facility] Last Admin: 06/06/19 08:15 Dose: 0.5 mg Documented by: Buspirone HCl (Buspar) 10 mg PO BID [facility] Last Admin: 06/06/19 10:12 Dose: 10 mg Documented by: Clopidogrel Bisulfate (Plavix) 75 mg PO DAILY [facility] Last Admin: 06/06/19 10:12 Dose: 75 mg Documented by: Doxepin HCl (Sinequan) 100 mg PO QHS [facility] Last Admin: 06/05/19 22:46 Dose: 100 mg Documented by: Furosemide (Lasix) 40 mg PO QDAY [facility] Last Admin: 06/06/19 10:12 Dose: 40 mg Documented by: Levetiracetam (Keppra) 500 mg PO BID [facility] Last Admin: 06/06/19 10:12 Dose: 500 mg Documented by: Magnesium Hydroxide (Milk Of Magnesia) 30 ml PO Q4H PRN PRN Reason: Constipation Metoclopramide HCl (Reglan) 10 mg PO Q6H PRN PRN Reason: Nausea And Vomiting Mirtazapine (Remeron) 15 mg PO QHS [facility] Last Admin: 06/05/19 22:46 Dose: 15 mg Documented by: Ondansetron HCl (Zofran) 4 mg IV Q8H PRN PRN Reason: Nausea And Vomiting Oxycodone/Acetaminophen (Percocet 5/325) 2 tab PO Q6H PRN PRN Reason: Pain, Moderate (4-6) Last Admin: 06/06/19 10:11 Dose: 2 tab Documented by: Phenytoin (Dilantin) 300 mg PO QHS [facility] Last Admin: 06/05/19 22:48 Dose: 300 mg Documented by: Potassium Chloride (K-Dur) 20 meq PO QDAY [facility] Last Admin: 06/06/19 10:12 Dose: 20 meq Documented by: Promethazine HCl (Phenergan) [address] Q6H PRN PRN Reason: Nausea And Vomiting Sodium Chloride (Sodium Chloride Flush Syringe 10 Ml) 10 ml IV PRN PRN PRN Reason: LINE FLUSH Physical Examination - Vital Signs Vital Signs: Vital Signs Temp Pulse Resp BP Pulse Ox 98.1 F 90 16 131/83 97 06/05/19 11:02 06/05/19 11:02 06/05/19 11:02 06/05/19 11:02 06/05/19 11:02 Results - Laboratory Findings CBC and BMP: 06/05/19 11:01 06/05/19 11:01 Abnormal Lab Findings: Abnormal Labs 06/05/19 06/05/19 06/05/19 11:01 11:01 11:01 WBC 3.9 L [place] % (Auto) 15.5 H Thrombin Time 20.1 H Glucose 117 H POC Glucose 06/05/19 22:15 WBC [place] % (Auto) Thrombin Time Glucose POC Glucose 124 H Assessment and Plan 53 YR OLD MALE WITH HIST OF MULTIPLE MEDICAL PROBLEM INCLUDING HIST OF HIV,HTN,CAD,S/P STENT PLACEMENT,STROKE IN THE PAST FROM HE HAD RESIDUAL LEFT NILTON PARESIS,COPD,NICOTINE DEPENDENCE,WHO WAS ON CLOPIDOGREL AND ASPIRIN AND ALSO STATIN DEVELOPED SUDDEN ONSET OF LEFT SIDED INCREASED WEAKNESS ON WAKING UP FROM SLEEP ON 06/05/2016. PATIENT CAME TO ER TEL[facility]URO WAS CONSULTED AND ADMITTED PER STROKE PROTOCOL.TPA WAS NOT GIVEN.WORK UP DID NOT SHOW ANY ACUTE ABNORMALITY INCLUDING, MRA,CT ANGIO AND MRI OF THE BRAIN.MRI SHOWED SIGNIFICANT ATROPHY OF RT HEMISPHERE CAUSING PROMINENT DILATATION OF RIGHT LATERAL VENTRICLES.PATIENT STATED HE WAS REGULAR WITH MEDICATION,HOWEVER HE MAY HAVE FORGOTTEN TO TAKE ASPIRIN,STATIN AND CLOPIDOGREL FOR FEW DAYS OR SO. PHYSICAL EXAMINATION- ALERT AND AWAKE, ANSWERS ALL QUESTIONS APPROPRIATELY, HAS INSIGHT INTO HIS PROBLEM HEART-NORMAL RATE AND RYTHM. CAROTID-BOTH PALPABLE CRANIAL NERVES-ALL WITH IN NORMAL LIMIT,NO FACIAL ASYMMETRY,PUPILS REACT TO LIGHT,EOMI,OTHER CRANIAL NERVES ARE WITH IN NORMAL LIMIT. MOTOR- WEAK LEFT UPPER AND LOWER EXTREMITIE, SIGNIFICANTLY INCRAESED MUSCLE TONE ON THE LEFT UPPER AND LOWER EXTREMITIES.LEFT UPPER AND LOWER EXTREMITIES ARE EQUALLY WEAK. REFLEXES- INCRAESD ON THE LEFT SIDE COMPARED TO THE RIGHT.WITH UP GOING TOE O N THE LEFT. SENSORY- GROSSLY WITH IN NORMAL LIMIT. IMPRESSION. 1. WORSENING OF PRE EXISTING LEFT NILTON PARESIS FROM A NEW INFARCT PROBABLY IN THE RIGHT INTERNAL CAPSULE I.E. SMALL VESSEL DISEASE, WHICH WAS NOT DETECTED BY MRI DUE TO BEING A SMALL INFARCT AND MOTION ARTEFACT CREATED BY MOVEMENT OF THE PATIENT DURING PROCEDUE. RECOMMEND; 1. PATIENT WILL NEED EXTENSIVE PHYSICAL THERAPY AND OCCUPATIONAL THERAPY. 2. SHOULD CONTINUE ASPIRIN,PLAVIX AND STATIN PRESCRIBED AND SHOULD BE REGULAR WITH MEDICATION 3. PATIENT SHOULD BE ADVISED TO AVOID EATING BROCCOLI,SPINACH,AC GREEN THESE AGENTS PROMOTES BLOOD COAGULATION. PATIENT IS IN HYPERCOAGULABLE STATE. 4. IN FUTURE PATIENT MAY BE PLACED ON APIXABAN IF OK WITH HIS MANAGER PUBLIC
[2019-06-06 17:59] LABS: Chol/HDL Ratio 3.2 %
[2019-06-06] MEDS: REMERON PO SCH (22:47)
[2019-06-06] MEDS: DILANTIN PO SCH (22:48)
[2019-06-06] MEDS: SINEquan PO SCH (22:49)
[2019-06-07] MEDS: PERCOCET 5/325 PO PRN ×3 (04:40→23:09)
[2019-06-07] MEDS: BROVANA NEBU IH SCH ×2 (08:13→20:05)
[2019-06-07] MEDS: PULMICORT IH SCH ×2 (08:13→20:05)
[2019-06-07] MEDS: HumuLIN R SUB-Q SCH ×3 (10:17→22:33)
[2019-06-07] MEDS: HALFPRIN EC PO SCH (10:24)
[2019-06-07] MEDS: BUSPAR PO SCH ×2 (10:24→23:07)
[2019-06-07] MEDS: ABILIFY PO SCH (10:24)
[2019-06-07] MEDS: K-DUR PO SCH (10:25)
[2019-06-07] MEDS: PLAVIX PO SCH (10:25)
[2019-06-07] MEDS: KEPPRA PO SCH ×2 (10:25→23:08)
[2019-06-07] MEDS: LASIX PO SCH (10:25)
--- NOTE | 2019-06-07 15:51 | Progress Note ---
Assessment and Plan Assessment and plan: CVA (cerebral vascular accident) CT head negative, MRI Brain, MRA brain, Carotid Doppler shows nothing acute. However, Neurology believes there is worsening of pre-existing L hemiparesis from new infarct prob in right internal capsule. Cont. neuro check, PT/OT/Speech. Cont ASA, plavix, statin. Consider apixaban Nicotine dependence unspecified, with withdrawal supportive care, smoking cessation counseling, supportive care. Seizure Antiepileptic drug therapy, neuro check, supportive care. COPD (chronic obstructive pulmonary disease) supplemental oxygen, nebulizer therapy, pulse oximetry, supportive care. Cerebral palsy Supportive care, HIV (human immunodeficiency virus infection) supportive care, Outpatient I/D F/U care. Hypertension monitor BP q shift, continue medical management, Diabetes ADA diet, insulin, accu check, hypoglycemia protocol CHF (congestive heart failure) supplemental oxygen, strict I/O, daily weight, chest x ray, afterload reduction, pulse oximetry PTSD (post-traumatic stress disorder) Supportive care, continue medical management. Depression supportive care. DVT prophylaxis SCD to BLE while in bed, prophylactic heparin History Interval history: No new issues Hospitalist Physical - Constitutional Vitals: Temp Pulse Resp BP Pulse Ox 98.0 F 84 18 115/78 100 06/07/19 04:22 06/07/19 08:13 06/07/19 08:13 06/07/19 04:22 06/07/19 08:13 General appearance: Present: no acute distress - EENT Eyes: Present: PERRL, EOM intact ENT: hearing intact, clear oral mucosa, dentition normal - Neck Neck: Present: supple, normal ROM - Respiratory Respiratory effort: normal Respiratory: bilateral: CTA - Cardiovascular Rhythm: regular Heart Sounds: Present: S1 & S2. Absent: gallop, rub - Extremities Extremities: no ischemia, No edema, Full ROM - Abdominal General gastrointestinal: soft, non-tender, non-distended, normal bowel sounds - Integumentary Integumentary: Present: clear, warm, dry - Neurologic Neurologic: CNII-XII intact, moves all extremities Results - Labs CBC & Chem 7: 06/05/19 11:01 06/05/19 11:01 Labs: Laboratory Last Values WBC 3.9 K/mm3 (4.5-11.0) L 06/05/19 11:01 RBC 4.39 M/mm3 (3.65-5.03) 06/05/19 11:01 Hgb 13.9 gm/dl (11.8-15.2) 06/05/19 11:01 Hct 40.7 % (35.5-45.6) 06/05/19 11:01 MCV 93 fl (84-94) 06/05/19 11:01 MCH 32 pg (28-32) 06/05/19 11:01 MCHC 34 % (32-34) 06/05/19 11:01 RDW 14.1 % (13.2-15.2) 06/05/19 11:01 Plt Count 208 K/mm3 (140-440) 06/05/19 11:01 Lymph % (Auto) 31.5 % (13.4-35.0) 06/05/19 11:01 [place] % (Auto) 15.5 % (0.0-7.3) H 06/05/19 11:01 Eos % (Auto) 1.8 % (0.0-4.3) 06/05/19 11:01 Baso % (Auto) 0.7 % (0.0-1.8) 06/05/19 11:01 Lymph # 1.2 K/mm3 (1.2-5.4) 06/05/19 11:01 [place] # 0.6 K/mm3 (0.0-0.8) 06/05/19 11:01 Eos # 0.1 K/mm3 (0.0-0.4) 06/05/19 11:01 Baso # 0.0 K/mm3 (0.0-0.1) 06/05/19 11:01 Seg Neutrophils % 50.5 % (40.0-70.0) 06/05/19 11:01 Seg Neutrophils # 2.0 K/mm3 (1.8-7.7) 06/05/19 11:01 PT 13.5 Sec. (12.2-14.9) 06/05/19 11:01 INR 1.06 (0.87-1.13) 06/05/19 11:01 APTT 27.5 Sec. (24.2-36.6) 06/05/19 11:01 20.1 Sec. (15.1-19.6) H 06/05/19 11:01 Sodium 138 mmol/L (137-145) 06/05/19 11:01 Potassium 3.7 mmol/L (3.6-5.0) 06/05/19 11:01 Chloride 103.3 mmol/L (98-107) 06/05/19 11:01 Carbon Dioxide 24 mmol/L (22-30) 06/05/19 11:01 14 mmol/L 06/05/19 11:01 BUN 15 mg/dL (9-20) 06/05/19 11:01 0.9 mg/dL (0.8-1.5) 06/05/19 11:01 Estimated GFR > 60 ml/min 06/05/19 11:01 17 % 06/05/19 11:01 Glucose 117 mg/dL (75-100) H 06/05/19 11:01 POC Glucose 100 (70-105) 06/07/19 08:40 Calcium 8.8 mg/dL (8.4-10.2) 06/05/19 11:01 < 0.010 ng/mL (0.00-0.029) 06/05/19 11:01 Triglycerides 149 mg/dL (2-149) 06/06/19 16:50 Cholesterol 96 mg/dL (50-199) 06/06/19 16:50 63 mg/dL (50-130) 06/06/19 16:50 30 mg/dL (40-59) L 06/06/19 16:50 3.20 % 06/06/19 16:50 Active Medications - Current Medications Current Medications: Generic Name Dose Route Start Last Admin Trade Name Freq PRN Reason Stop Dose Admin Acetaminophen 650 mg 06/05/19 14:30 Tylenol PO Q4H PRN Pain, Mild (1-3) Albuterol 2.5 mg 06/05/19 14:48 Proventil IH Q4HRT PRN Shortness Of Breath Arformoterol Tartrate 15 mcg 06/05/19 20:00 06/07/19 08:13 Brovana Nebu IH 15 mcg Q12HRT [facility] Administration Aripiprazole 15 mg 06/06/19 10:00 06/07/19 10:24 Abilify PO 15 mg DAILY [facility] Administration Aspirin 81 mg 06/06/19 10:00 06/07/19 10:24 Halfprin Ec PO 81 mg DAILY [facility] Administration Atorvastatin Calcium 80 mg 06/05/19 22:00 06/06/19 22:47 Lipitor PO 80 mg QHS [facility] Administration Bisacodyl 10 mg 06/05/19 14:30 Dulcolax [place] QDAY PRN Constipation Budesonide 0.5 mg 06/05/19 20:00 06/07/19 08:13 Pulmicort IH 0.5 mg Q12HRT [facility] Administration Buspirone HCl 10 mg 06/05/19 22:00 06/07/19 10:24 Buspar PO 10 mg BID [facility] Administration Clopidogrel Bisulfate 75 mg 06/06/19 10:00 06/07/19 10:25 Plavix PO 75 mg DAILY [facility] Administration Doxepin HCl 100 mg 06/05/19 22:00 06/06/19 22:49 Sinequan PO 100 mg QHS [facility] Administration Furosemide 40 mg 06/06/19 10:00 06/07/19 10:25 Lasix PO 40 mg QDAY [facility] Administration Insulin Human Regular 0 units 06/07/19 07:30 06/07/19 10:17 Humulin R SUB-Q Not [facility] Protocol Levetiracetam 500 mg 06/05/19 22:00 06/07/19 10:25 Keppra PO 500 mg BID [facility] Administration Magnesium Hydroxide 30 ml 06/05/19 14:30 Milk Of Magnesia PO Q4H PRN Constipation Metoclopramide HCl 10 mg 06/05/19 14:30 Reglan PO Q6H PRN Nausea And Vomiting Mirtazapine 15 mg 06/05/19 22:00 06/06/19 22:47 Remeron PO 15 mg QHS [facility] Administration Ondansetron HCl 4 mg 06/05/19 14:30 Zofran IV Q8H PRN Nausea And Vomiting Oxycodone/Acetaminophen 2 tab 06/05/19 23:25 06/07/19 10:25 Percocet 5/325 PO 2 tab Q6H PRN Administration Pain, Moderate (4-6) Phenytoin 300 mg 06/05/19 22:00 06/06/19 22:48 Dilantin PO 300 mg QHS [facility] Administration Potassium Chloride 20 meq 06/06/19 10:00 06/07/19 10:25 K-Dur PO 20 meq QDAY [facility] Administration Promethazine HCl 25 mg 06/05/19 14:30 Phenergan [place] Q6H PRN Nausea And Vomiting Sodium Chloride 10 ml 06/05/19 14:30 Sodium Chloride Flush Syringe 10 Ml IV PRN PRN LINE FLUSH Nutrition/Malnutrition Assess - Dietary Evaluation Nutrition/Malnutrition Findings: Nutrition Notes Start: 06/06/19 14:24 Freq: Status: Active Protocol: Document 06/06/19 14:24 RS (Rec: 06/06/19 14:33 RS [id number]) Co-Sign 06/06/19 14:24 LP Nutrition Notes Need for Assessment generated from: vendor representatives Initial or Follow up Brief Note Current Diagnosis COPD,Coronary Artery Disease, Diabetes,Hypertension,Heart Failure Other Pertinent Diagnosis HIV Current Diet Cardiac/Consistent Carb Diet Labs/Tests reviewed Pertinent Medications Lasix, KCl, Remeron Height 5 ft 11 in Weight 83.3 kg [place] Body Weight (kg) 78.18 BMI 25.6 Intake Prior to Admission Excellent Weight Status Overweight Subjective/Other Information Observed 100% of bfast consumed. Pt self reports drinking 3 Ensure Enlive TID Percent of energy/protein needs met: 100% Burn Absent Trauma Absent #1 Nutrition Diagnosis No nutrition diagnosis at this time Nutrition Intervention Change Diet Order: Continue cardiac/ consistent carb diet Revisit per MD consult or patient Sign Off request:
[2019-06-07] MEDS: DILANTIN PO SCH (23:08)
[2019-06-07] MEDS: REMERON PO SCH (23:08)
[2019-06-07] MEDS: SINEquan PO SCH (23:09)
[2019-06-08] MEDS: PULMICORT IH SCH ×2 (07:06→20:19)
[2019-06-08] MEDS: BROVANA NEBU IH SCH ×2 (07:06→20:19)
[2019-06-08] MEDS: HumuLIN R SUB-Q SCH ×4 (08:15→21:50)
--- NOTE | 2019-06-08 09:59 | Progress Note ---
Assessment and Plan Assessment and plan: CVA (cerebral vascular accident) CT head negative, MRI Brain, MRA brain, Carotid Doppler shows nothing acute. However, Neurology believes there is worsening of pre-existing L hemiparesis from new infarct prob in right internal capsule. Cont. neuro check, PT/OT/Speech. Cont ASA, plavix, statin. Consider apixaban Nicotine dependence unspecified, with withdrawal supportive care, smoking cessation counseling, supportive care. Seizure Antiepileptic drug therapy, neuro check, supportive care. COPD (chronic obstructive pulmonary disease) supplemental oxygen, nebulizer therapy, pulse oximetry, supportive care. Cerebral palsy Supportive care, HIV (human immunodeficiency virus infection) supportive care, Outpatient I/D F/U care. Hypertension monitor BP q shift, continue medical management, Diabetes ADA diet, insulin, accu check, hypoglycemia protocol CHF (congestive heart failure) supplemental oxygen, strict I/O, daily weight, chest x ray, afterload reduction, pulse oximetry PTSD (post-traumatic stress disorder) Supportive care, continue medical management. Depression supportive care. DVT prophylaxis SCD to BLE while in bed, prophylactic heparin Disposition. Physical therapy recommended home health PT. However, patient reportedly is homeless. Therefore we will discuss with case management options. History Interval history: No new issues Hospitalist Physical - Constitutional Vitals: Temp Pulse Resp BP Pulse Ox 97.8 F 73 20 114/69 98 06/08/19 08:32 06/08/19 08:32 06/08/19 08:32 06/08/19 08:32 06/08/19 08:32 General appearance: Present: no acute distress - EENT Eyes: Present: PERRL, EOM intact ENT: hearing intact, clear oral mucosa, dentition normal - Neck Neck: Present: supple, normal ROM - Respiratory Respiratory effort: normal Respiratory: bilateral: CTA - Cardiovascular Rhythm: regular Heart Sounds: Present: S1 & S2. Absent: gallop, rub - Extremities Extremities: no ischemia, No edema, Full ROM - Abdominal General gastrointestinal: soft, non-tender, non-distended, normal bowel sounds - Integumentary Integumentary: Present: clear, warm, dry - Neurologic Neurologic: CNII-XII intact, moves all extremities Results - Labs CBC & Chem 7: 06/05/19 11:01 06/05/19 11:01 Labs: Laboratory Last Values WBC 3.9 K/mm3 (4.5-11.0) L 06/05/19 11:01 RBC 4.39 M/mm3 (3.65-5.03) 06/05/19 11:01 Hgb 13.9 gm/dl (11.8-15.2) 06/05/19 11:01 Hct 40.7 % (35.5-45.6) 06/05/19 11:01 MCV 93 fl (84-94) 06/05/19 11:01 MCH 32 pg (28-32) 06/05/19 11:01 MCHC 34 % (32-34) 06/05/19 11:01 RDW 14.1 % (13.2-15.2) 06/05/19 11:01 Plt Count 208 K/mm3 (140-440) 06/05/19 11:01 Lymph % (Auto) 31.5 % (13.4-35.0) 06/05/19 11:01 [place] % (Auto) 15.5 % (0.0-7.3) H 06/05/19 11:01 Eos % (Auto) 1.8 % (0.0-4.3) 06/05/19 11:01 Baso % (Auto) 0.7 % (0.0-1.8) 06/05/19 11:01 Lymph # 1.2 K/mm3 (1.2-5.4) 06/05/19 11:01 [place] # 0.6 K/mm3 (0.0-0.8) 06/05/19 11:01 Eos # 0.1 K/mm3 (0.0-0.4) 06/05/19 11:01 Baso # 0.0 K/mm3 (0.0-0.1) 06/05/19 11:01 Seg Neutrophils % 50.5 % (40.0-70.0) 06/05/19 11:01 Seg Neutrophils # 2.0 K/mm3 (1.8-7.7) 06/05/19 11:01 PT 13.5 Sec. (12.2-14.9) 06/05/19 11:01 INR 1.06 (0.87-1.13) 06/05/19 11:01 APTT 27.5 Sec. (24.2-36.6) 06/05/19 11:01 20.1 Sec. (15.1-19.6) H 06/05/19 11:01 Sodium 138 mmol/L (137-145) 06/05/19 11:01 Potassium 3.7 mmol/L (3.6-5.0) 06/05/19 11:01 Chloride 103.3 mmol/L (98-107) 06/05/19 11:01 Carbon Dioxide 24 mmol/L (22-30) 06/05/19 11:01 14 mmol/L 06/05/19 11:01 BUN 15 mg/dL (9-20) 06/05/19 11:01 0.9 mg/dL (0.8-1.5) 06/05/19 11:01 Estimated GFR > 60 ml/min 06/05/19 11:01 17 % 06/05/19 11:01 Glucose 117 mg/dL (75-100) H 06/05/19 11:01 POC Glucose 106 (70-105) H 06/08/19 08:42 Calcium 8.8 mg/dL (8.4-10.2) 06/05/19 11:01 < 0.010 ng/mL (0.00-0.029) 06/05/19 11:01 Triglycerides 149 mg/dL (2-149) 06/06/19 16:50 Cholesterol 96 mg/dL (50-199) 06/06/19 16:50 63 mg/dL (50-130) 06/06/19 16:50 30 mg/dL (40-59) L 06/06/19 16:50 3.20 % 06/06/19 16:50 Active Medications - Current Medications Current Medications: Generic Name Dose Route Start Last Admin Trade Name Freq PRN Reason Stop Dose Admin Acetaminophen 650 mg 06/05/19 14:30 Tylenol PO Q4H PRN Pain, Mild (1-3) Albuterol 2.5 mg 06/05/19 14:48 Proventil IH Q4HRT PRN Shortness Of Breath Arformoterol Tartrate 15 mcg 06/05/19 20:00 06/08/19 07:06 Brovana Nebu IH 15 mcg Q12HRT [facility] Administration Aripiprazole 15 mg 06/06/19 10:00 06/07/19 10:24 Abilify PO 15 mg DAILY [facility] Administration Aspirin 81 mg 06/06/19 10:00 06/07/19 10:24 Halfprin Ec PO 81 mg DAILY [facility] Administration Atorvastatin Calcium 80 mg 06/05/19 22:00 06/07/19 23:07 Lipitor PO 80 mg QHS [facility] Administration Bisacodyl 10 mg 06/05/19 14:30 Dulcolax [place] QDAY PRN Constipation Budesonide 0.5 mg 06/05/19 20:00 06/08/19 07:06 Pulmicort IH 0.5 mg Q12HRT [facility] Administration Buspirone HCl 10 mg 06/05/19 22:00 06/07/19 23:07 Buspar PO 10 mg BID [facility] Administration Clopidogrel Bisulfate 75 mg 06/06/19 10:00 06/07/19 10:25 Plavix PO 75 mg DAILY [facility] Administration Doxepin HCl 100 mg 06/05/19 22:00 06/07/19 23:09 Sinequan PO 100 mg QHS [facility] Administration Furosemide 40 mg 06/06/19 10:00 06/07/19 10:25 Lasix PO 40 mg QDAY [facility] Administration Insulin Human Regular 0 units 06/07/19 07:30 06/07/19 22:33 Humulin R SUB-Q Not Given [facility] Protocol Levetiracetam 500 mg 06/05/19 22:00 06/07/19 23:08 Keppra PO 500 mg BID [facility] Administration Magnesium Hydroxide 30 ml 06/05/19 14:30 Milk Of Magnesia PO Q4H PRN Constipation Metoclopramide HCl 10 mg 06/05/19 14:30 Reglan PO Q6H PRN Nausea And Vomiting Mirtazapine 15 mg 06/05/19 22:00 06/07/19 23:08 Remeron PO 15 mg QHS [facility] Administration Ondansetron HCl 4 mg 06/05/19 14:30 Zofran IV Q8H PRN Nausea And Vomiting Oxycodone/Acetaminophen 2 tab 06/05/19 23:25 06/07/19 23:09 Percocet 5/325 PO 2 tab Q6H PRN Administration Pain, Moderate (4-6) Phenytoin 300 mg 06/05/19 22:00 06/07/19 23:08 Dilantin PO 300 mg QHS [facility] Administration Potassium Chloride 20 meq 06/06/19 10:00 06/07/19 10:25 K-Dur PO 20 meq QDAY [facility] Administration Promethazine HCl 25 mg 06/05/19 14:30 Phenergan [place] Q6H PRN Nausea And Vomiting Sodium Chloride 10 ml 06/05/19 14:30 Sodium Chloride Flush Syringe 10 Ml IV PRN PRN LINE FLUSH Nutrition/Malnutrition Assess - Dietary Evaluation Nutrition/Malnutrition Findings: Nutrition Notes Start: 06/06/19 14:24 Freq: Status: Active Protocol: Document 06/06/19 14:24 RS (Rec: 06/06/19 14:33 RS [id number]) Co-Sign 06/06/19 14:24 LP Nutrition Notes Need for Assessment generated from: event operations manager Initial or Follow up Brief Note Current Diagnosis COPD,Coronary Artery Disease, Diabetes,Hypertension,Heart Failure Other Pertinent Diagnosis HIV Current Diet Cardiac/Consistent Carb Diet Labs/Tests reviewed Pertinent Medications Lasix, KCl, Remeron Height 5 ft 11 in Weight 83.3 kg [place] Body Weight (kg) 78.18 BMI 25.6 Intake Prior to Admission Excellent Weight Status Overweight Subjective/Other Information Observed 100% of bfast consumed. Pt self reports drinking 3 Ensure Enlive TID Percent of energy/protein needs met: 100% Burn Absent Trauma Absent #1 Nutrition Diagnosis No nutrition diagnosis at this time Nutrition Intervention Change Diet Order: Continue cardiac/ consistent carb diet Revisit per MD consult or patient Sign Off request:
[2019-06-08] MEDS: K-DUR PO SCH (10:44)
[2019-06-08] MEDS: ABILIFY PO SCH (10:44)
[2019-06-08] MEDS: KEPPRA PO SCH ×2 (10:44→21:49)
[2019-06-08] MEDS: HALFPRIN EC PO SCH (10:44)
[2019-06-08] MEDS: BUSPAR PO SCH ×2 (10:44→21:50)
[2019-06-08] MEDS: PLAVIX PO SCH (10:44)
[2019-06-08] MEDS: LASIX PO SCH (10:46)
[2019-06-08] MEDS: DILANTIN PO SCH (21:49)
[2019-06-08] MEDS: REMERON PO SCH (21:49)
[2019-06-08] MEDS: SINEquan PO SCH (21:50)
[2019-06-08] MEDS: PERCOCET 5/325 PO PRN (21:51)
[2019-06-09] MEDS: PULMICORT IH SCH ×2 (08:24→21:43)
[2019-06-09] MEDS: BROVANA NEBU IH SCH ×2 (08:24→21:43)
[2019-06-09] MEDS: HumuLIN R SUB-Q SCH ×4 (08:29→22:00)
[2019-06-09] MEDS: LASIX PO SCH (10:51)
[2019-06-09] MEDS: HALFPRIN EC PO SCH (10:51)
[2019-06-09] MEDS: KEPPRA PO SCH ×2 (10:51→22:07)
[2019-06-09] MEDS: PLAVIX PO SCH (10:51)
[2019-06-09] MEDS: K-DUR PO SCH (10:51)
[2019-06-09] MEDS: ABILIFY PO SCH (10:52)
[2019-06-09] MEDS: BUSPAR PO SCH ×2 (10:52→22:07)
[2019-06-09] MEDS: PERCOCET 5/325 PO PRN ×2 (11:02→22:11)
--- NOTE | 2019-06-09 17:34 | Progress Note ---
Assessment and Plan Assessment and plan: CVA (cerebral vascular accident) CT head negative, MRI Brain, MRA brain, Carotid Doppler shows nothing acute. However, Neurology believes there is worsening of pre-existing L hemiparesis from new infarct prob in right internal capsule. Cont. neuro check, PT/OT/Speech. Cont ASA, plavix, statin. Consider apixaban Nicotine dependence unspecified, with withdrawal supportive care, smoking cessation counseling, supportive care. Seizure Antiepileptic drug therapy, neuro check, supportive care. COPD (chronic obstructive pulmonary disease) supplemental oxygen, nebulizer therapy, pulse oximetry, supportive care. Cerebral palsy Supportive care, HIV (human immunodeficiency virus infection) supportive care, Outpatient I/D F/U care. Hypertension monitor BP q shift, continue medical management, Diabetes ADA diet, insulin, accu check, hypoglycemia protocol CHF (congestive heart failure) supplemental oxygen, strict I/O, daily weight, chest x ray, afterload reduction, pulse oximetry PTSD (post-traumatic stress disorder) Supportive care, continue medical management. Depression supportive care. DVT prophylaxis SCD to BLE while in bed, prophylactic heparin Disposition. Physical therapy recommended home health PT. However, patient reportedly is homeless. Cont. to discuss with case management options. History Interval history: No new issues Hospitalist Physical - Constitutional Vitals: Temp Pulse Resp BP Pulse Ox 97.8 F 83 18 121/75 96 06/09/19 17:03 06/09/19 17:03 06/09/19 17:03 06/09/19 17:03 06/09/19 17:03 General appearance: Present: no acute distress - EENT Eyes: Present: PERRL, EOM intact ENT: hearing intact, clear oral mucosa, dentition normal - Neck Neck: Present: supple, normal ROM - Respiratory Respiratory effort: normal Respiratory: bilateral: CTA - Cardiovascular Rhythm: regular Heart Sounds: Present: S1 & S2. Absent: gallop, rub - Extremities Extremities: no ischemia, No edema, Full ROM - Abdominal General gastrointestinal: soft, non-tender, non-distended, normal bowel sounds - Integumentary Integumentary: Present: clear, warm, dry - Neurologic Neurologic: CNII-XII intact, moves all extremities Results - Labs CBC & Chem 7: 06/05/19 11:01 06/05/19 11:01 Labs: Laboratory Last Values WBC 3.9 K/mm3 (4.5-11.0) L 06/05/19 11:01 RBC 4.39 M/mm3 (3.65-5.03) 06/05/19 11:01 Hgb 13.9 gm/dl (11.8-15.2) 06/05/19 11:01 Hct 40.7 % (35.5-45.6) 06/05/19 11:01 MCV 93 fl (84-94) 06/05/19 11:01 MCH 32 pg (28-32) 06/05/19 11:01 MCHC 34 % (32-34) 06/05/19 11:01 RDW 14.1 % (13.2-15.2) 06/05/19 11:01 Plt Count 208 K/mm3 (140-440) 06/05/19 11:01 Lymph % (Auto) 31.5 % (13.4-35.0) 06/05/19 11:01 [place] % (Auto) 15.5 % (0.0-7.3) H 06/05/19 11:01 Eos % (Auto) 1.8 % (0.0-4.3) 06/05/19 11:01 Baso % (Auto) 0.7 % (0.0-1.8) 06/05/19 11:01 Lymph # 1.2 K/mm3 (1.2-5.4) 06/05/19 11:01 [place] # 0.6 K/mm3 (0.0-0.8) 06/05/19 11:01 Eos # 0.1 K/mm3 (0.0-0.4) 06/05/19 11:01 Baso # 0.0 K/mm3 (0.0-0.1) 06/05/19 11:01 Seg Neutrophils % 50.5 % (40.0-70.0) 06/05/19 11:01 Seg Neutrophils # 2.0 K/mm3 (1.8-7.7) 06/05/19 11:01 PT 13.5 Sec. (12.2-14.9) 06/05/19 11:01 INR 1.06 (0.87-1.13) 06/05/19 11:01 APTT 27.5 Sec. (24.2-36.6) 06/05/19 11:01 20.1 Sec. (15.1-19.6) H 06/05/19 11:01 Sodium 138 mmol/L (137-145) 06/05/19 11:01 Potassium 3.7 mmol/L (3.6-5.0) 06/05/19 11:01 Chloride 103.3 mmol/L (98-107) 06/05/19 11:01 Carbon Dioxide 24 mmol/L (22-30) 06/05/19 11:01 14 mmol/L 06/05/19 11:01 BUN 15 mg/dL (9-20) 06/05/19 11:01 0.9 mg/dL (0.8-1.5) 06/05/19 11:01 Estimated GFR > 60 ml/min 06/05/19 11:01 17 % 06/05/19 11:01 Glucose 117 mg/dL (75-100) H 06/05/19 11:01 POC Glucose 116 (70-105) H 06/09/19 17:09 Calcium 8.8 mg/dL (8.4-10.2) 06/05/19 11:01 < 0.010 ng/mL (0.00-0.029) 06/05/19 11:01 Triglycerides 149 mg/dL (2-149) 06/06/19 16:50 Cholesterol 96 mg/dL (50-199) 06/06/19 16:50 63 mg/dL (50-130) 06/06/19 16:50 30 mg/dL (40-59) L 06/06/19 16:50 3.20 % 06/06/19 16:50 Active Medications - Current Medications Current Medications: Generic Name Dose Route Start Last Admin Trade Name Freq PRN Reason Stop Dose Admin Acetaminophen 650 mg 06/05/19 14:30 Tylenol PO Q4H PRN Pain, Mild (1-3) Albuterol 2.5 mg 06/05/19 14:48 Proventil IH Q4HRT PRN Shortness Of Breath Arformoterol Tartrate 15 mcg 06/05/19 20:00 06/09/19 08:24 Brovana Nebu IH 15 mcg Q12HRT DEBRA Administration Aripiprazole 15 mg 06/06/19 10:00 06/09/19 10:52 Abilify PO 15 mg DAILY DEBRA Administration Aspirin 81 mg 06/06/19 10:00 06/09/19 10:51 Halfprin Ec PO 81 mg DAILY DEBRA Administration Atorvastatin Calcium 80 mg 06/05/19 22:00 06/08/19 21:49 Lipitor PO 80 mg QHS DEBRA Administration Bisacodyl 10 mg 06/05/19 14:30 Dulcolax ID QDAY PRN Constipation Budesonide 0.5 mg 06/05/19 20:00 06/09/19 08:24 Pulmicort IH 0.5 mg Q12HRT DEBRA Administration Buspirone HCl 10 mg 06/05/19 22:00 06/09/19 10:52 Buspar PO 10 mg BID DEBRA Administration Clopidogrel Bisulfate 75 mg 06/06/19 10:00 06/09/19 10:51 Plavix PO 75 mg DAILY DEBRA Administration Doxepin HCl 100 mg 06/05/19 22:00 06/08/19 21:50 Sinequan PO 100 mg QHS DEBRA Administration Furosemide 40 mg 06/06/19 10:00 06/09/19 10:51 Lasix PO 40 mg QDAY DEBRA Administration Insulin Human Regular 0 units 06/07/19 07:30 06/09/19 12:29 Humulin R SUB-Q Not Given [facility] Protocol Levetiracetam 500 mg 06/05/19 22:00 06/09/19 10:51 Keppra PO 500 mg BID DEBRA Administration Magnesium Hydroxide 30 ml 06/05/19 14:30 Milk Of Magnesia PO Q4H PRN Constipation Metoclopramide HCl 10 mg 06/05/19 14:30 Reglan PO Q6H PRN Nausea And Vomiting Mirtazapine 15 mg 06/05/19 22:00 06/08/19 21:49 Remeron PO 15 mg QHS DEBRA Administration Ondansetron HCl 4 mg 06/05/19 14:30 Zofran IV Q8H PRN Nausea And Vomiting Oxycodone/Acetaminophen 2 tab 06/05/19 23:25 06/09/19 11:02 Percocet 5/325 PO 2 tab Q6H PRN Administration Pain, Moderate (4-6) Phenytoin 300 mg 06/05/19 22:00 06/08/19 21:49 Dilantin PO 300 mg QHS DEBRA Administration Potassium Chloride 20 meq 06/06/19 10:00 06/09/19 10:51 K-Dur PO 20 meq QDAY DEBRA Administration Promethazine HCl 25 mg 06/05/19 14:30 Phenergan ID Q6H PRN Nausea And Vomiting Sodium Chloride 10 ml 06/05/19 14:30 Sodium Chloride Flush Syringe 10 Ml IV PRN PRN LINE FLUSH Nutrition/Malnutrition Assess - Dietary Evaluation Nutrition/Malnutrition Findings: Nutrition Notes Start: 06/06/19 14:24 Freq: Status: Active Protocol: Document 06/06/19 14:24 RS (Rec: 06/06/19 14:33 RS [id number]) Co-Sign 06/06/19 14:24 LP Nutrition Notes Need for Assessment generated from: cdl program coordinator Initial or Follow up Brief Note Current Diagnosis COPD,Coronary Artery Disease, Diabetes,Hypertension,Heart Failure Other Pertinent Diagnosis HIV Current Diet Cardiac/Consistent Carb Diet Labs/Tests reviewed Pertinent Medications Lasix, KCl, Remeron Height 5 ft 11 in Weight 83.3 kg [place] Body Weight (kg) 78.18 BMI 25.6 Intake Prior to Admission Excellent Weight Status Overweight Subjective/Other Information Observed 100% of bfast consumed. Pt self reports drinking 3 Ensure Enlive TID Percent of energy/protein needs met: 100% Burn Absent Trauma Absent #1 Nutrition Diagnosis No nutrition diagnosis at this time Nutrition Intervention Change Diet Order: Continue cardiac/ consistent carb diet Revisit per MD consult or patient Sign Off request:
[2019-06-09] MEDS: SINEquan PO SCH (22:06)
[2019-06-09] MEDS: DILANTIN PO SCH (22:06)
[2019-06-09] MEDS: REMERON PO SCH (22:07)
[2019-06-10] MEDS: BROVANA NEBU IH SCH (09:08)
[2019-06-10] MEDS: PULMICORT IH SCH (09:08)
--- NOTE | 2019-06-10 10:52 | Discharge Summary ---
Providers - Providers Date of Admission: 06/05/19 14:48 Date of discharge: 06/10/19 Attending physician: CARMELITA CURRAN MD 06/05/19 14:30 Occupational Therapy Evaluate and Treat [CONS] Routine Comment: Reason For Exam: Neuro deficits Physical Therapy Evaluation and Treat [CONS] Routine Comment: Reason For Exam: Neuro deficits 06/05/19 14:36 Speech Therapy Evaluation and Treat [CONS] Routine Reason For Exam: swallow eval 06/06/19 08:28 Consult to Physician [CONS] Routine Comment: Consulting Provider: TRISTIAN VIGIL Physician Instructions: Reason For Exam: cva Primary care physician: FIELD AGENT Hospitalization Reason for admission: left-sided weakness, history of CVA, HIV, homelessness, PTSD Condition: Fair Pertinent studies: CT, MRI head Echo Carotid Doppler Hospital course: 53 YO Male with HIV, CVA, CP, SLE, CAD S/P CABG, [place], Cardiomyopathy, DM, PTSD, Depression, HTN, Asthma, Chronic Pain Syndrome, COPD, Nicotine Dependence presents to ED for evaluation. Pt states that he was in his usual state of health at bedtime which was around 2130 hrs. Pt states that he awoke from sleep this morning with Left arm and leg weakness, left sided facial drooping and slurred speech. Pt transported to [facility] via private vehicle. Pt seen and evaluated in ED and found to have neurologic deficit. A code stroke was called and the patient was initiated on CVA protocol. Teleneurology consulted. Pt deemed not a candidate for TPA. Pt admitted to telemetry. Neurology consulted in ED. Pt denies fever, chills, CP, Palpitations, NVD, Trauma, BRBPR, Productive cough, skin rash, or recent ill contacts. Prior admission on 05/08/19 reviewed. All listed medication reconciled at time of admission. CVA (cerebral vascular accident) CT head negative, MRI Brain, MRA brain, Carotid Doppler shows nothing acute. However, Neurology believes there is worsening of pre-existing L hemiparesis from new infarct prob in right internal capsule. Cont ASA, plavix, statin. Nicotine dependence unspecified, with withdrawal; supportive care, smoking cessation counseling, supportive care. Seizure; continue Antiepileptic drug therapy. COPD (chronic obstructive pulmonary disease); supplemental oxygen, nebulizer therapy, pulse oximetry. Cerebral palsy; Supportive care, HIV (human immunodeficiency virus infection); Outpatient I/D F/U care. Hypertension; and told continue current medication regimen Diabetes; continue outpatient medications CHF (congestive heart failure); stable continue home medication PTSD (post-traumatic stress disorder);Supportive care, continue medical management. Depression; continue medications. Disposition: [id number] HOME UND[facility] Time spent for discharge: 32 minutes - Discharge Diagnoses (1) CHF (congestive heart failure) Status: Chronic Qualifiers: Heart failure chronicity: chronic (2) CVA (cerebral vascular accident) Status: Acute Qualifiers: Precerebral and cerebral artery: middle cerebral artery Laterality of affected vessel: right (3) Depression Status: Acute Qualifiers: Depression Type: major depressive disorder Psychotic features: without psychotic features (4) Diabetes Status: Acute Qualifiers: Diabetes mellitus type: type 2 Diabetes mellitus long goods drier insulin use: with long goods drier use Diabetes mellitus complication status: without complication Qualified Code(s): E11.9 - Type 2 diabetes mellitus without complications; Z79.4 - parts counterman (current) use of insulin (5) Left hemiparesis Status: Acute (6) PTSD (post-traumatic stress disorder) Status: Chronic (7) Seizure Status: Chronic Core Measure Documentation - Palliative Care Palliative Care/ Comfort Measures: Not Applicable - Core Measures Any of the following diagnoses?: stroke - Stroke Discharge Requirements Statin for LDL = or >70 mg/dl on DC: Yes Anticoag for atrial fib/atrial flutter: Not Applicable Antithrombotic for ischemic stroke: Yes Exam - Physical Exam Narrative exam: Not in cardiopulmonary distress. The patient appeared well nourished and normally developed. Vital signs as documented. Head exam is unremarkable. No scleral icterus . Neck is without jugular venous distension, thyromegaly, or carotid bruits. Lungs are clear to auscultation. Cardiac exam reveals regular rate and Rhythm. First and second heart sounds normal. No murmurs, rubs or gallops. Abdominal exam reveals normal bowel sounds, no masses, no organomegaly and no aortic enlargement. Extremities are nonedematous and both femoral and pedal pulses are normal. FLOOR COVERING INSTALLER: Alert and oriented 3. No focal weakness. - Constitutional Vitals: Temp Pulse Resp BP Pulse Ox 98.3 F 85 18 102/69 98 06/10/19 08:53 06/10/19 09:09 06/10/19 09:09 06/10/19 08:53 06/10/19 09:11 Plan Activity: advance as tolerated Weight Bearing Status: Weight Bear as Tolerated Diet: low cholesterol, low salt, diabetic Special Instructions: physical therapy Follow up with: PRIMARY CARE, [Primary Care Provider] - 3-5 Days LEONIDAS SIMON MD [Staff Physician] - 10 Days
[2019-06-10] MEDS: BUSPAR PO SCH (11:02)
[2019-06-10] MEDS: K-DUR PO SCH (11:02)
[2019-06-10] MEDS: HALFPRIN EC PO SCH (11:03)
[2019-06-10] MEDS: PLAVIX PO SCH (11:03)
[2019-06-10] MEDS: ABILIFY PO SCH (11:03)
[2019-06-10] MEDS: LASIX PO SCH (11:03)
[2019-06-10] MEDS: KEPPRA PO SCH (11:03)
[2019-06-10 12:15] VITALS: BP 117/73
== END 2019-06-10 13:52 | disposition home or self-care (01) | DRG 65 ==
LOC: ED 10:41 → 4A 14:48
PROVIDERS: ADMIT Internal Medicine; ATTEND Internal Medicine
DX: I63.9 Cerebral infarction, unspecified (principal); B20 Human immunodeficiency virus [HIV] disease; D68.59 Other primary thrombophilia; I50.22 Chronic systolic (congestive) heart failure; G81.94 Hemiplegia, unspecified affecting left nondominant side; I42.9 Cardiomyopathy, unspecified; F17.213 Nicotine dependence, cigarettes, with withdrawal; J44.9 Chronic obstructive pulmonary disease, unspecified; F43.11 Post-traumatic stress disorder, acute; I11.0 Hypertensive heart disease with heart failure; F32.9 Major depressive disorder, single episode, unspecified; R47.81 Slurred speech; R29.810 Facial weakness; G89.4 Chronic pain syndrome; R29.710 NIHSS score 10; E11.9 Type 2 diabetes mellitus without complications; Z71.6 Tobacco abuse counseling; Z79.82 Long term (current) use of aspirin; Z79.899 Other long term (current) drug therapy; Z88.8 Allergy status to other drugs, medicaments and biological substances; I25.2 Old myocardial infarction; Z79.51 Long term (current) use of inhaled steroids; Z95.1 Presence of aortocoronary bypass graft; Z86.73 Personal history of transient ischemic attack (TIA), and cerebral infarction without residual deficits; Z83.3 Family history of diabetes mellitus; Z82.49 Family history of ischemic heart disease and other diseases of the circulatory system; Z59.0 Homelessness; Z79.4 Long term (current) use of insulin
CPT/HCPCS: 36415; 70450; 70496; 70498; 70544; 70551; 80048; 80061; 82962; 84484; 85025; 85610; 85670; 85730; 93005; 93010; 93880; 94640; 94760; 99406; G0378; A9270-GY; Q9967

== ENCOUNTER 2020-01-21 11:20 | Inpatient (IN) | payer MEDICARE, OTHER ==
[2020-01-21] MEDS ORDERED: FAMOTIDINE 20 MG TAB PO ONE (11:52)
[2020-01-21] MEDS ORDERED: NITROGLYCERIN 0.4 MG TAB SUBL SL PRN (11:52)
--- NOTE | 2020-01-21 11:54 | Emergency Department Report ---
ED Neuro Deficit HPI - General Chief Complaint: Chest Pain Stated Complaint: FEVER/CHEST PAIN/SHORTNESS OF BREATH Time Seen by Provider: 01/21/20 11:38 Source: patient, EMS ( EMS documentation not available at time of chart dictation ), RN notes reviewed, old records reviewed Mode of arrival: Stretcher Limitations: Physical Limitation - History of Present Illness Initial Comments: The patient is a 54-year-old gentleman. I have evaluated this patient in the past. His past medical history includes HIV, stroke, chest pain, lupus, heart disease, CABG, coronary artery disease, cardiomyopathy, diabetes, PTSD, depression, hypertension, asthma, chronic pain syndrome and nicotine dependence. He does not have a local primary care doctor. He presents to the ER today with 2 complaints. He indicates no fever, no cough, no confirmed exposure to the coronavirus. His first complaint is "I think I have a stroke." He indicates left arm weakness, left leg weakness, which started at 9-10 o'clock yesterday evening. Symptoms are constant. He reports no headache, neck pain, abdominal pain, fever, cough, urinary symptoms. This complaint of weakness is constant. He apparently also has a history of cerebral palsy. Please note that the patient had a similar presentation and June 2019, he had a CT scan of the brain which was negative, MRI, MRA, carotid duplex which were fairly unremarkable. His symptoms today are constant, and do not have exacerbating or relieving factors. He also endorses chest pressure and pain. He indicates that it is frontal, and occasionally on the right and the left. There is no complaint of shortness of breath, vomiting, diaphoresis or radiation. He denies recent travel and surgery. He denies recent hospitalizations. He has poor mobility at baseline secondary to underlying cerebral palsy. There is no leg pain or leg swelling at this time. -: Gradual, hour(s) Location: left arm, left leg Presenting Symptoms: Present: Weak/Paralyzed One Side. Absent: Sudden, Severe Headache, Blurred/Loss of Vision, Facial Droop/Numbness, Unable to Speak Clearly, Altered Mental Status History of same: Yes Place: home Improves With: none Worsens With: none Context: gradual onset Associated Symptoms: chest pain - Related Data Home Medications: Home Medications Medication Instructions Recorded Confirmed Last Taken ARIPiprazole [Abilify TAB] 15 mg PO DAILY 06/05/19 06/05/19 Unknown Albuterol INH(or & Nicu Only) 2 puff IH Q4H PRN 06/05/19 06/05/19 Unknown [ProAir HFA Inhaler] Aspirin [Adult Aspirin] 81 mg PO DAILY 06/05/19 06/05/19 Unknown Doxepin [SINEquan] 100 mg PO QHS 06/05/19 06/05/19 Unknown Fluticasone/Salmeterol(Nf) [Advair 2 puff IH BID 06/05/19 06/05/19 Unknown HFA 230-21 mcg] Furosemide [Lasix TAB] 40 mg PO QDAY 06/05/19 06/05/19 Unknown Insulin NPH Hum/Reg Insulin Hm 30 units SUB-Q QHS 06/05/19 06/05/19 Unknown [Novolin 70-30 Flexpen] Insulin NPH/Regular [NovoLIN 70/30] 20 units SUB-Q QAM 06/05/19 06/05/19 Unknown Ipratropium/Albuterol Sulfate 1 spray IH QID 06/05/19 06/05/19 Unknown [Combivent Respimat] Metoprolol [Lopressor TAB] 100 mg PO BID 06/05/19 06/05/19 Unknown Mirtazapine [Remeron 15mg TAB] 15 mg PO QHS 06/05/19 06/05/19 Unknown Oxycodone HCl/Acetaminophen 1 each PO Q6HR PRN 06/05/19 06/05/19 Unknown [Percocet 10/325 mg] Phenytoin [Dilantin] 300 mg PO QHS 06/05/19 06/05/19 Unknown Potassium Chloride [K-Dur] 20 meq PO QDAY 06/05/19 06/05/19 Unknown Rosuvastatin Calcium 40 mg PO QHS 06/05/19 06/05/19 Unknown busPIRone [Buspar] 10 mg PO BID 06/05/19 06/05/19 Unknown levETIRAcetam [Keppra TAB] 500 mg PO BID 06/05/19 06/05/19 Unknown Previous Rx's Medication Instructions Recorded Last Taken Type Clopidogrel [Plavix] 75 mg PO DAILY #30 tablet 05/10/19 Unknown Rx Allergies/Adverse Reactions: Allergies Allergy/AdvReac Type Severity Reaction Status Date / Time metoclopramide [From Reglan] Allergy Anaphylaxis Verified 05/08/19 16:45 prochlorperazine Allergy Anaphylaxis Verified 05/08/19 16:45 [From Compazine] promethazine [From Phenergan] Allergy Anaphylaxis Verified 05/08/19 16:45 ED Review of Systems ROS: Stated complaint: FEVER/CHEST PAIN/SHORTNESS OF BREATH Other details as noted in HPI Constitutional: denies: fever Eyes: denies: eye discharge ENT: denies: epistaxis Respiratory: denies: shortness of breath Cardiovascular: chest pain Gastrointestinal: denies: abdominal pain Genitourinary: denies: dysuria Musculoskeletal: as per HPI Skin: as per HPI Neurological: as per HPI, weakness Psychiatric: as per HPI Hematological/Lymphatic: as per HPI ED Past Medical Hx - Past Medical History Hx Hypertension: Yes Hx CVA: Yes (left sided weakness) Hx Heart Attack/AMI: Yes Hx Congestive Heart Failure: Yes Hx Diabetes: Yes Hx Seizures: Yes Hx Psychiatric Treatment: Yes (PTSD,depression) Hx Asthma: Yes Hx COPD: Yes Hx HIV: Yes Additional medical history: Cerebral palsy - Surgical History Additional Surgical History: CABG - Social History Smoking Status: Never Smoker Substance Use Type: None - Medications Home Medications: Home Medications Medication Instructions Recorded Confirmed Last Taken Type Clopidogrel [Plavix] 75 mg PO DAILY #30 tablet 05/10/19 06/05/19 Unknown Rx ARIPiprazole [Abilify TAB] 15 mg PO DAILY 06/05/19 06/05/19 Unknown History Albuterol INH(or & Nicu Only) 2 puff IH Q4H PRN 06/05/19 06/05/19 Unknown Hi story [ProAir HFA Inhaler] Aspirin [Adult Aspirin] 81 mg PO DAILY 06/05/19 06/05/19 Unknown History Doxepin [SINEquan] 100 mg PO QHS 06/05/19 06/05/19 Unknown History Fluticasone/Salmeterol(Nf) [Advair 2 puff IH BID 06/05/19 06/05/19 Unknown History HFA 230-21 mcg] Furosemide [Lasix TAB] 40 mg PO QDAY 06/05/19 06/05/19 Unknown History Insulin NPH Hum/Reg Insulin Hm 30 units SUB-Q QHS 06/05/19 06/05/19 Unknown History [Novolin 70-30 Flexpen] Insulin NPH/Regular [NovoLIN 70/30] 20 units SUB-Q QAM 06/05/19 06/05/19 Unknown History Ipratropium/Albuterol Sulfate 1 spray IH QID 06/05/19 06/05/19 Unknown History [Combivent Respimat] Metoprolol [Lopressor TAB] 100 mg PO BID 06/05/19 06/05/19 Unknown History Mirtazapine [Remeron 15mg TAB] 15 mg PO QHS 06/05/19 06/05/19 Unknown History Oxycodone HCl/Acetaminophen 1 each PO Q6HR PRN 06/05/19 06/05/19 Unknown History [Percocet 10/325 mg] Phenytoin [Dilantin] 300 mg PO QHS 06/05/19 06/05/19 Unknown History Potassium Chloride [K-Dur] 20 meq PO QDAY 06/05/19 06/05/19 Unknown History Rosuvastatin Calcium 40 mg PO QHS 06/05/19 06/05/19 Unknown History busPIRone [Buspar] 10 mg PO BID 06/05/19 06/05/19 Unknown History levETIRAcetam [Keppra TAB] 500 mg PO BID 06/05/19 06/05/19 Unknown History ED Neuro Physical Exam - General Limitations: Physical Limitation General appearance: alert, in no apparent distress Suspected Stroke: No - Head Head exam: Present: atraumatic, normocephalic - Eye Eye exam: Present: normal appearance, PERRL, EOMI, other (Visual acuity intact to finger counting, color perception, reading at a close distance). Absent: conjunctival injection, nystagmus - ENT ENT exam: Present: normal exam, normal orophraynx, mucous membranes moist, normal external ear exam - Neck Neck exam: Present: normal inspection, full ROM. Absent: tenderness, meningismus - Respiratory Respiratory exam: Present: normal lung sounds bilaterally. Absent: respiratory distress - Cardiovascular Cardiovascular Exam: Present: normal rhythm, tachycardia, normal heart sounds. Absent: systolic murmur, diastolic murmur, rubs, gallop - GI/Abdominal GI/Abdominal exam: Present: soft. Absent: distended, tenderness, guarding, rebound, rigid, pulsatile mass - Rectal Rectal exam: Present: deferred - Extremities Exam Extremities exam: Present: normal inspection, other (2+ pulses noted in the bilateral upper and lower extremities. There is no palpable cord. negative Homans sign. Muscular compartments are soft. The pelvis is stable.). Absent: calf tenderness - Back Exam Back exam: Present: normal inspection. Absent: tenderness, CVA tenderness (R), CVA tenderness (L), paraspinal tenderness, vertebral tenderness - Neurological Exam Neurological exam: Present: alert, oriented X3 - NIHSS Assessment Interval: Baseline 1a. Level of Consciousness: alert/keenly responsive 1b. LOC Questions: answers both correctly 1c. LOC Commands: performs tasks correctly 2. Best Gaze: normal 3. Visual: no visual loss 4. Facial Palsy: normal symmetrical movement 5b. Motor Arm Right: no drift 5a. Motor Arm Left: no movement 6a. Motor Leg Left: no movement 6b. Motor Leg Right: no drift 7. Limb Ataxia: absent 8. Sensory: mild/moderate sensory loss 9. Best Language: no aphasia 10. Dysarthria: normal 11. Extinction/Inattention: no abnormality Total Score: 9 Stroke Severity: Moderate Stroke - Psychiatric Psychiatric exam: Present: normal affect, normal mood - Skin Skin exam: Present: warm, dry, intact, normal color. Absent: rash ED Course - Reevaluation(s) Reevaluation #1: 01/21/20 12:25 Differential diagnosis, including but not limited to: Stroke, pneumonia, urinary tract infection, acute coronary syndrome, aortic dissection, secondary gain, malingering Assessment and plan: 54-year-old gentleman presenting with 2 complaints Complaints #1, acute on chronic left-sided weakness. The patient is afebrile with reassuring vital signs. I have examined this patient multiple times in the past. To my recollection, his left-sided deficits are chronic, and do not appear to be significantly worse when compared to my prior documentation. However, the patient is insistent that he has acutely worsened left-sided weakness and has a number of vascular risk factors. Therefore, code stroke called overhead. Last known well time was last night, he presents more than 4.5 hours after symptom onset, and he is not a TPA candidate. Given NIH score of 9, emergent CT angiogram head and neck will be obtained to evaluate for large vessel occlusion. I think aortic dissection is unlikely, however, the CT angiogram will visualize the arch of the aorta, so if there is indeed a dissection involving either the arterial takeoff from the aorta as they travel to the head and neck, these should be visualized. Complaints #2, chest pain, nonspecific The patient is tachycardic, but he is not hypoxic or tachypneic. I think a pulmonary embolism is unlikely at this time; he does have a number of vascular risk factors, his EKG is unchanged from prior, however, he is at moderate risk for major adverse cardiac event. Assuming no findings noted on CAT scan that would require transfer, patient to be admitted to the medical service for further evaluation and management. Please note that the patient's mood and demeanor are inconsistent with his presentation, he is quite happy, smiling, director of state, watching TV, and does not appear to be in any acute distress or discomfort at this time. Urinalysis and x-ray of the chest are pending. Noncontrast CT scan of the brain is interpreted as negative by neuroradiology. Case is discussed with consulting neurology, Dr. Moran, who agrees with the aforementioned recommendations, and most importantly agrees that the patient is not a TPA candidate. - Consultations Consultation #1: 01/21/20 14:19 Dr Moran advises cta head neck negative for LVO Patient reassessed multiple times. He does not appear to be in any acute distress at this time. Indeed, on multiple re-evaluations, he is playing with his cellular phone, and in no acute distress. Patient will be admitted to the medical service under the care of Dr. Lino Najera - Lab Data Result diagrams: 01/21/20 12:50 01/21/20 12:50 Lab Results 01/21/20 01/21/20 01/21/20 Range/Units 12:12 12:50 12:50 WBC 5.3 (4.5-11.0) K/mm3 RBC 4.38 (3.65-5.03) M/mm3 Hgb 13.9 (11.8-15.2) gm/dl Hct 39.8 (35.5-45.6) % MCV 91 (84-94) fl MCH 32 (28-32) pg MCHC 35 H (32-34) % RDW 13.6 (13.2-15.2) % Plt Count 196 (140-440) K/mm3 Lymph % (Auto) 30.6 (13.4-35.0) % Cannon % (Auto) 8.6 H (0.0-7.3) % Eos % (Auto) 3.4 (0.0-4.3) % Baso % (Auto) 0.7 (0.0-1.8) % Lymph # 1.6 (1.2-5.4) K/mm3 Cannon # 0.5 (0.0-0.8) K/mm3 Eos # 0.2 (0.0-0.4) K/mm3 Baso # 0.0 (0.0-0.1) K/mm3 Seg Neutrophils % 56.7 (40.0-70.0) % Seg Neutrophils # 3.0 (1.8-7.7) K/mm3 PT 13.6 (12.2-14.9) Sec. INR 1.03 (0.87-1.13) APTT 29.0 (24.2-36.6) Sec. Thrombin Time 18.0 (15.1-19.6) Sec. Sodium (137-145) mmol/L Potassium (3.6-5.0) mmol/L Chloride (98-107) mmol/L Carbon Dioxide (22-30) mmol/L Anion Gap mmol/L BUN (9-20) mg/dL Creatinine (0.8-1.5) mg/dL Estimated GFR ml/min BUN/Creatinine Ratio % Glucose (75-100) mg/dL POC Glucose 74 (70-105) Calcium (8.4-10.2) mg/dL Total Bilirubin (0.1-1.2) mg/dL AST (5-40) units/L ALT (7-56) units/L Alkaline Phosphatase (35-129) units/L CK-MB (CK-2) (0.0-4.0) ng/mL Troponin T (0.00-0.029) ng/mL Total Protein (6.3-8.2) g/dL Albumin (3.9-5) g/dL Albumin/Globulin Ratio % Salicylates (2.8-20.0) mg/dL Acetaminophen (10.0-30.0) ug/mL Plasma/Serum Alcohol (0-0.07) % 01/21/20 01/21/20 01/21/20 Range/Units 12:50 12:50 12:50 WBC (4.5-11.0) K/mm3 RBC (3.65-5.03) M/mm3 Hgb (11.8-15.2) gm/dl Hct (35.5-45.6) % MCV (84-94) fl MCH (28-32) pg MCHC (32-34) % RDW (13.2-15.2) % Plt Count (140-440) K/mm3 Lymph % (Auto) (13.4-35.0) % Cannon % (Auto) (0.0-7.3) % Eos % (Auto) (0.0-4.3) % Baso % (Auto) (0.0-1.8) % Lymph # (1.2-5.4) K/mm3 Cannon # (0.0-0.8) K/mm3 Eos # (0.0-0.4) K/mm3 Baso # (0.0-0.1) K/mm3 Seg Neutrophils % (40.0-70.0) % Seg Neutrophils # (1.8-7.7) K/mm3 PT (12.2-14.9) Sec. INR (0.87-1.13) APTT (24.2-36.6) Sec. Thrombin Time (15.1-19.6) Sec. Sodium 138 (137-145) mmol/L Potassium 4.0 (3.6-5.0) mmol/L Chloride 99.1 (98-107) mmol/L Carbon Dioxide 24 (22-30) mmol/L Anion Gap 19 mmol/L BUN 14 (9-20) mg/dL Creatinine 0.9 (0.8-1.5) mg/dL Estimated GFR > 60 ml/min BUN/Creatinine Ratio 16 % Glucose 86 (75-100) mg/dL POC Glucose (70-105) Calcium 9.2 (8.4-10.2) mg/dL Total Bilirubin 1.10 (0.1-1.2) mg/dL AST 57 H (5-40) units/L ALT 94 H (7-56) units/L Alkaline Phosphatase 97 (35-129) units/L CK-MB (CK-2) 2.3 (0.0-4.0) ng/mL Troponin T < 0.010 (0.00-0.029) ng/mL Total Protein 8.1 (6.3-8.2) g/dL Albumin 4.3 (3.9-5) g/dL Albumin/Globulin Ratio 1.1 % Salicylates < 0.3 L (2.8-20.0) mg/dL Acetaminophen < 5.0 L (10.0-30.0) ug/mL Plasma/Serum Alcohol (0-0.07) % 01/21/20 Range/Units 12:50 WBC (4.5-11.0) K/mm3 RBC (3.65-5.03) M/mm3 Hgb (11.8-15.2) gm/dl Hct (35.5-45.6) % MCV (84-94) fl MCH (28-32) pg MCHC (32-34) % RDW (13.2-15.2) % Plt Count (140-440) K/mm3 Lymph % (Auto) (13.4-35.0) % Cannon % (Auto) (0.0-7.3) % Eos % (Auto) (0.0-4.3) % Baso % (Auto) (0.0-1.8) % Lymph # (1.2-5.4) K/mm3 Cannon # (0.0-0.8) K/mm3 Eos # (0.0-0.4) K/mm3 Baso # (0.0-0.1) K/mm3 Seg Neutrophils % (40.0-70.0) % Seg Neutrophils # (1.8-7.7) K/mm3 PT (12.2-14.9) Sec. INR (0.87-1.13) APTT (24.2-36.6) Sec. Thrombin Time (15.1-19.6) Sec. Sodium (137-145) mmol/L Potassium (3.6-5.0) mmol/L Chloride (98-107) mmol/L Carbon Dioxide (22-30) mmol/L Anion Gap mmol/L BUN (9-20) mg/dL Creatinine (0.8-1.5) mg/dL Estimated GFR ml/min BUN/Creatinine Ratio % Glucose (75-100) mg/dL POC Glucose (70-105) Calcium (8.4-10.2) mg/dL Total Bilirubin (0.1-1.2) mg/dL AST (5-40) units/L ALT (7-56) units/L Alkaline Phosphatase (35-129) units/L CK-MB (CK-2) (0.0-4.0) ng/mL Troponin T (0.00-0.029) ng/mL Total Protein (6.3-8.2) g/dL Albumin (3.9-5) g/dL Albumin/Globulin Ratio % Salicylates (2.8-20.0) mg/dL Acetaminophen (10.0-30.0) ug/mL Plasma/Serum Alcohol < 0.01 (0-0.07) % - EKG Data -: EKG Interpreted by Mt EKG shows normal: sinus rhythm Rate: tachycardia 01/21/20 12:30 Sinus rhythm, tachycardia, 104 bpm, normal axis, normal intervals, poor R wave progression, motion artifact, not a STEMI, unchanged from prior EKG from June 2019 - Radiology Data Radiology results: report reviewed, image reviewed FINDINGS: Parenchyma: No acute intracranial hemorrhage or parenchymal abnormality. Ventricles: Stable ventriculomegaly involving the right greater than left lateral ventricles. There is also slight prominence of the third ventricle. The fourth ventricle is normal. Soft tissues: Soft tissues including the orbits appear normal. Bones: No acute osseous abnormality. Sinuses: Sinuses and mastoid air cells are clear. IMPRESSION: No acute abnormality. Chronic findings. COMMUNICATION: Time of Communication (SLIP COVER SEWER/CDT): 11:17 AM Licensed Practitioner Receiving Report: Dr. Mcgrath. Print Report Referring Physician: DUSTIN MCGRATH Patient Name: MARLY COELHO Date of : 1965 Sex: Male Report Date: 2020-01-21 Report Status: Finalized Findings [facility] [address] [place] [address] XRay Report Signed Patient: MARLY COELHO MR#: [id number] : 1965 Acct:[id number] Age/Sex: 54 / M ADM Date: 01/21/20 Loc: ED Attending Dr: Ordering Physician: DUSTIN MCGRATH MD Date of Service: 01/21/20 Procedure(s): XR chest 1V ap Accession Number(s): [id number] cc: DUSTIN MCGRATH MD Fluoro Time In Minutes: CHEST 1 VIEW INDICATION: cp. COMPARISON: 10/19/2018 FINDINGS: Support devices: None. Heart: Within normal limits. Lungs/Pleura: Lungs are normally expanded and clear. No airspace disease or pleural effusion. Additional findings: Median sternotomy wires and aortic sutures. IMPRESSION: 1. No acute findings. Signer Name: Yury Le MD Signed: 01/21/2020 12:55 PM Workstation Name: [id number] Transcribed By: REF Dictated By: YURY LE MD Electronically Authenticated By: YURY LE MD Signed Date/Time: 01/21/20 1255 DD/ 1253 Print Report Referring Physician: MAIRA MORAN Patient Name: MARLY COELHO Date of : 1965 Sex: Male Report Date: 2020-01-21 Report Status: [place] [address] Cat Scan Report Signed Patient: MARLY COELHO MR#: [id number] : 1965 Acct:[id number] Age/Sex: 54 / M ADM Date: 01/21/20 Loc: ED Attending Dr: Ordering Physician: MAIRA MORAN MD Date of Service: 01/21/20 Procedure(s): CT angio head Accession Number(s): [id number] cc: MAIRA MORAN MD CT angio head INDICATION / CLINICAL INFORMATION: 54 years Male; left hemiplegia. TECHNIQUE: Thin cut axial images obtained through the head during IV bolus contrast administration. Sagittal, coronal, and 3 plane MIP reconstructions performed by the technologist. NASCET type cr iteria used evaluate stenoses. Automated exposure control utilized for radiation reduction purposes. Vision artifact present. COMPARISON: 06/05/2019 FINDINGS: INTERNAL CAROTID ARTERIES: No significant narrowing appreciated. There is mild narrowing in the anterior genu of the cavernous portion of the right internal carotid artery. VERTEBROBASILAR SYSTEM: No significant narrowing appreciated. DISTAL BRANCHES: Distal branches of the left MCA territory are better visualized than the right, although there is asymmetrically prominent cerebral atrophy on the right, when compared with the left. Blood flow to the right parietal region, peripherally, appears to be relatively decreased when compared with the same area on the left. Similar type findings seen on prior. The possibility of mild narrowing in the distal M1 segment or in the MCA trifurcation region on the left cannot be excluded, although these findings may be related to motion. Similar type findings seen in the A2 regions of both anterior cerebral arteries. ANEURYSM: None identified. ADDITIONAL FINDINGS: Remainder of the surrounding soft tissues are grossly normal. IMPRESSION: No definitive signs of branch occlusion. Study is limited by motion, as described above. Signer Name: Abdoulaye Tse MD, III Signed: 01/21/2020 2:09 PM Workstation Name: [id number] Transcribed By: HR Dictated By: Abdoulaye Tse MD Electronically Authenticated By: Abdoulaye Tse MD Signed Date/Time: 01/21/20 1409 DD/ 1334 TD/TT: - Core Measures Measure Exclusions: not indicated - Thrombolytic Inclusion/Exclusion Thrombolytic Exclusion Criteria: Symptom Onset > 3 Hours Critical Care Time: Yes Critical care time in (mins) excluding proc time.: 35 Critical care attestation.: If time is entered above; I have spent that time in minutes in the direct care of this critically ill patient, excluding procedure time. ED Disposition Clinical Impression: CAD (coronary artery disease), Abnormal EKG, Hx of CABG, Left-sided weakness, Left hemiparesis, History of chest pain Disposition: OP ADMIT IP TO THIS HOSP Is pt being admited?: Yes Does the pt Need Aspirin: Yes Condition: Stable Referrals: PRIMARY CAREMD [Primary Care Provider] - 3-5 Days
--- NOTE | 2020-01-21 11:59 | Consultation ---
History of Present Illness Consult date: 01/21/20 Requesting physician: DUSTIN GOMEZ Reason for Consult: stroke Chief complaint: left weakness History of present illness: . Medications and Allergies Allergies Allergy/AdvReac Type Severity Reaction Status Date / Time metoclopramide [From Reglan] Allergy Anaphylaxis Verified 05/08/19 16:45 prochlorperazine Allergy Anaphylaxis Verified 05/08/19 16:45 [From Compazine] promethazine [From Phenergan] Allergy Anaphylaxis Verified 05/08/19 16:45 Home Medications Medication Instructions Recorded Confirmed Last Taken Type Clopidogrel [Plavix] 75 mg PO DAILY #30 tablet 05/10/19 06/05/19 Unknown Rx ARIPiprazole [Abilify TAB] 15 mg PO DAILY 06/05/19 06/05/19 Unknown History Albuterol INH(or & Nicu Only) 2 puff IH Q4H PRN 06/05/19 06/05/19 Unknown History [ProAir HFA Inhaler] Aspirin [Adult Aspirin] 81 mg PO DAILY 06/05/19 06/05/19 Unknown History Doxepin [SINEquan] 100 mg PO QHS 06/05/19 06/05/19 Unknown History Fluticasone/Salmeterol(Nf) [Advair 2 puff IH BID 06/05/19 06/05/19 Unknown History HFA 230-21 mcg] Furosemide [Lasix TAB] 40 mg PO QDAY 06/05/19 06/05/19 Unknown History Insulin NPH Hum/Reg Insulin Hm 30 units SUB-Q QHS 06/05/19 06/05/19 Unknown History [Novolin 70-30 Flexpen] Insulin NPH/Regular [NovoLIN 70/30] 20 units SUB-Q QAM 06/05/19 06/05/19 Unknown History Ipratropium/Albuterol Sulfate 1 spray IH QID 06/05/19 06/05/19 Unknown History [Combivent Respimat] Metoprolol [Lopressor TAB] 100 mg PO BID 06/05/19 06/05/19 Unknown History Mirtazapine [Remeron 15mg TAB] 15 mg PO QHS 06/05/19 06/05/19 Unknown History Oxycodone HCl/Acetaminophen 1 each PO Q6HR PRN 06/05/19 06/05/19 Unknown History [Percocet 10/325 mg] Phenytoin [Dilantin] 300 mg PO QHS 06/05/19 06/05/19 Unknown History Potassium Chloride [K-Dur] 20 meq PO QDAY 06/05/19 06/05/19 Unknown History Rosuvastatin Calcium 40 mg PO QHS 06/05/19 06/05/19 Unknown History busPIRone [Buspar] 10 mg PO BID 06/05/19 06/05/19 Unknown History levETIRAcetam [Keppra TAB] 500 mg PO BID 06/05/19 06/05/19 Unknown History Active Meds: Active Medications Nitroglycerin (Nitrostat) 0.4 mg SL .Q5MIN PRN PRN Reason: Chest Pain Assessment and Plan [facility] Date of Service: 01/21/2020 11:51:49 Impression: Rule Out Acute Ischemic Stroke Rule out conversion disorder Less likely post ictal paralysis Comments/Sign-Out: 54 yo M with dense L hemilplegia with onset of symptoms last night around 1999. He has had presentations like this in the past with negative workup concerning for psychogenic etiology. His presentation seems severe today, though he lacks a facial droop and reports sensory loss in his left forehead which is also a ref flag Nonetheless given his cardiac history and report of prior stroke, reasonable to rule out an LVO with CTA. If negative recommend admission and MRI to prove no stroke Mechanism of Stroke: Not Clear Metrics: Last Known Well: 01/20/2020 20:00:00 [facility] Notification Time: 01/21/2020 11:51:13 Arrival Time: 01/21/2020 11:20:00 Stamp Time: 01/21/2020 11:51:49 Time First Login Attempt: 01/21/2020 11:54:28 Video Start Time: 01/21/2020 11:54:28 Symptoms: left sided weakness NIHSS Start Assessment Time: 01/21/2020 12:10:45 Patient is not a candidate for tPA. Patient was not deemed candidate for tPA thrombolytics because of Last Well Known Above 4.5 Hours. Video End Time: 01/21/2020 12:17:00 CT head showed no acute hemorrhage or acute core infarct. Clinical Presentation is Suggestive of Large Vessel Occlusive Disease, Recommendations are as Follows CTA Head and Neck. ED Physician notified of diagnostic impression and management plan on 01/21/2020 12:18:56 Our recommendations are outlined below. Recommendations: Activate Stroke Protocol Admission/Order Set Stroke/Telemetry Floor Neuro Checks Bedside Swallow Eval DVT Prophylaxis IV Fluids, Normal Saline Head of Bed Below 30 Degrees Euglycemia and Avoid Hyperthermia (PRN Acetaminophen) Antiplatelet Therapy Recommended Initiate Aspirin Initiate Plavix Will follow up after CTA head and neck, and discuss with ED attending Routine Consultation with Inhouse Neurology for Follow up Care Sign Out: Discussed with Emergency Department Provider History of Present Illness: Patient is a 54 year old Male. Patient was brought by EMS for symptoms of left sided weakness 54 yo M hx depression/PTSD, HIV, CAD, DM2, HTN, and seizures with chronic developmental R cerebral atrophy on Keppra/dilantin who presents with left sided weakness this morning. He was last well last night at 2000. Last night he was dragging his foot a little. He had a seizure at 2345, but that is typical for him to have a seizure weekly since . He reports no history of post ictal paralysis after a seizure Today he is resting comfortably but plegic on his left side, and also complains of complete lack of sensation including his left forehead. He has no facial droop or dysarthria, though. He had similar presentations in past and is known to the ED physician CT head showed no acute hemorrhage or acute core infarct. Last seen normal was beyond 4.5 hours of presentation. There is no history of hemorrhagic complications or intracranial hemorrhage. There is no history of Recent Anticoagulants. There is no history of recent major surgery. There is no history of recent stroke. Examination: Blood Glucose(74) 1A: Level of Consciousness - Alert; keenly responsive + 0 1B: Ask Month and Age - Both Questions Right + 0 1C: Blink Eyes & Squeeze Hands - Performs Both Tasks + 0 2: Test Horizontal Extraocular Movements - Normal + 0 3: Test Visual Cam - No Visual Loss + 0 4: Test Facial Palsy (Use Grimace if Obtunded) - Normal symmetry + 0 5A: Test Left Arm Motor Drift - No Movement + 4 5B: Test Right Arm Motor Drift - No Drift for 10 Seconds + 0 6A: Test Left Leg Motor Drift - No Movement + 4 6B: Test Right Leg Motor Drift - No Drift for 5 Seconds + 0 7: Test Limb Ataxia (FNF/Heel-Love) - No Ataxia + 0 8: Test Sensation - Complete Loss: Cannot Sense Being Touched At All + 2 9: Test Language/Aphasia - Normal; No aphasia + 0 10: Test Dysarthria - Normal + 0 11: Test Extinction/Inattention - No abnormality + 0 NIHSS Score: 10 Patient was informed the Neurology Consult would happen via TeleHealth consult by way of interactive audio and video telecommunications and consented to receiving care in this manner. Due to the immediate potential for life-threatening deterioration due to underlying acute neurologic illness, I spent 35 minutes providing critical care. This time includes time for face to face visit via telemedicine, review of medical records, imaging studies and discussion of findings with providers, the patient and/or family. Dr Arley [facility] Case [id number]
--- NOTE | 2020-01-21 12:22 | Cat Scan Report ---
CT head without contrast INDICATION : MAIN: CODE STROKE CALL [phone]. TECHNIQUE: Axial imaging performed from the skull apex through the skull base without the use of con trast. All CT scans at this location are performed using CT dose reduction for ALARA by means of aut omated exposure control. COMPARISON: CT head from 06/05/2019 FINDINGS: Parenchyma: No acute intracranial hemorrhage or parenchymal abnormality. Ventricles: Stable ventriculomegaly involving the right greater than left lateral ventricles. There is also slight prominence of the third ventricle. The fourth ventricle is normal. Soft tissues: Soft tissues including the orbits appear normal. Bones: No acute osseous abnormality. Sinuses: Sinuses and mastoid air cells are clear. IMPRESSION: No acute abnormality. Chronic findings. COMMUNICATION: Time of Communication (CHARGE LOADER/CDT): 11:17 AM Licensed Practitioner Receiving Report: Dr. Mcgrath. Signer Name: Brad Ríos MD Signed: 01/21/2020 12:18 PM Workstation Name: [id number]
[2020-01-21] MEDS ORDERED: SODIUM CHLORIDE 0.9% 500 ML 500 ML IV ONE (12:25)
--- NOTE | 2020-01-21 12:59 | XRay Report ---
CHEST 1 VIEW INDICATION: cp. COMPARISON: 10/19/2018 FINDINGS: Support devices: None. Heart: Within normal limits. Lungs/Pleura: Lungs are normally expanded and clear. No airspace disease or pleural effusion. Additional findings: Median sternotomy wires and aortic sutures. IMPRESSION: 1. No acute findings. Signer Name: Kenn Gonzalez MD Signed: 01/21/2020 12:55 PM Workstation Name: [id number]
[2020-01-21 13:25] LABS: Basophils % (Auto) 0.7 % (0.0-1.8); Eosinophils # (Auto) 0.2 K/mm3 (0.0-0.4); Eosinophils % (Auto) 3.4 % (0.0-4.3); Hematocrit 39.8 % (35.5-45.6); Hemoglobin 13.9 gm/dl (11.8-15.2); Lymphocytes # (Auto) 1.6 K/mm3 (1.2-5.4); Lymphocytes % (Auto) 30.6 % (13.4-35.0); Mean Corpuscular HGB Conc 35 % (32-34); Mean Corpuscular Volume 91 fl (84-94); Monocytes # (Auto) 0.5 K/mm3 (0.0-0.8); Monocytes % (Auto) 8.6 % (0.0-7.3); Platelet Count 196 K/mm3 (140-440); Red Blood Count 4.38 M/mm3 (3.65-5.03); Red Cell Distribution Width 13.6 % (13.2-15.2)
[2020-01-21 13:35] LABS: INR 1.03 (0.87-1.13)
[2020-01-21 13:52] LABS: Creatine Kinase MB 2.3 ng/mL (0.0-4.0)
[2020-01-21 13:53] LABS: Alanine Aminotransferase 94 units/L (7-56); Albumin 4.3 g/dL (3.9-5); BUN/Creatinine Ratio 16; Blood Urea Nitrogen 14 mg/dL (9-20); Calcium 9.2 mg/dL (8.4-10.2); Hemolysis Index 2
--- NOTE | 2020-01-21 14:14 | Cat Scan Report ---
CT angio head INDICATION / CLINICAL INFORMATION: 54 years Male; left hemiplegia. TECHNIQUE: Thin cut axial images obtained through the head during IV bolus contrast administration. S agittal, coronal, and 3 plane MIP reconstructions performed by the technologist. NASCET type criteria used evaluate stenoses. Automated exposure control utilized for radiation reduction purposes. Vision artifact present. COMPARISON: 06/05/2019 FINDINGS: INTERNAL CAROTID ARTERIES: No significant narrowing appreciated. There is mild narrowing in the anter ior genu of the cavernous portion of the right internal carotid artery. VERTEBROBASILAR SYSTEM: No significant narrowing appreciated. DISTAL BRANCHES: Distal branches of the left MCA territory are better visualized than the right, alth ough there is asymmetrically prominent cerebral atrophy on the right, when compared with the left. Bl ood flow to the right parietal region, peripherally, appears to be relatively decreased when compared with the same area on the left. Similar type findings seen on prior. The possibility of mild narrowi ng in the distal M1 segment or in the MCA trifurcation region on the left cannot be excluded, althoug h these findings may be related to motion. Similar type findings seen in the A2 regions of both anter ior cerebral arteries. ANEURYSM: None identified. ADDITIONAL FINDINGS: Remainder of the surrounding soft tissues are grossly normal. IMPRESSION: No definitive signs of branch occlusion. Study is limited by motion, as described above. Signer Name: Abdoulaye Tse MD, III Signed: 01/21/2020 2:09 PM Workstation Name: [id number]
--- NOTE | 2020-01-21 14:18 | Cat Scan Report ---
CT angio neck INDICATION / CLINICAL INFORMATION: 54 years Male; left hemiplegia. TECHNIQUE: Thin cut axial images obtained through the head during IV bolus contrast administration. S agittal, coronal, and 3 plane MIP reconstructions performed by the technologist. NASCET type criteria used evaluate stenoses. All CT scans at this location are performed using CT dose reduction for ALAR A by means of automated exposure control. COMPARISON: 06/05/2019 FINDINGS: ARCH: Normal aortic arch branching suggested. CAROTID ARTERIES: The visualized common and internal carotid arteries are widely patent. VERTEBRAL ARTERIES: Codominant vertebral system seen. No significant stenosis appreciated. ADDITIONAL FINDINGS: Mild degenerative changes seen in the cervical spine. No definitive signs of sig nificant canal stenosis. Mild osseous foraminal narrowing seen at various levels from uncinate hypert rophy. IMPRESSION: No significant stenosis appreciated on this CTA of the neck. Signer Name: Abdoulaye Tse MD, III Signed: 01/21/2020 2:14 PM Workstation Name: [id number]
[2020-01-21 14:51] LABS: Bilirubin,Urine NEG (Negative); Blood,Urine NEG (Negative); Color,Urine Yellow (Yellow); Mucus,Urine 3+ /HPF; Protein,Urine <15 mg/dL mg/dL (Negative)
[2020-01-21 14:57] LABS: Amphetamine Screen,Urine PRESUMPTIVE NEGATIVE; Benzodiazepines Screen,Urine PRESUMPTIVE NEGATIVE; Cannabinoid Screen,Urine PRESUMPTIVE NEGATIVE; Cocaine Screen,Urine PRESUMPTIVE NEGATIVE; Methadone Screen,Urine PRESUMPTIVE NEGATIVE; Opiate Screen,Urine PRESUMPTIVE NEGATIVE
--- NOTE | 2020-01-21 17:43 | History and Physical Report ---
History of Present Illness Date of examination: 01/21/20 Date of admission: 01/21/20 14:19 Chief complaint: L sided weakness since 1 day History of present illness: 54-year-old male past medical history includes HIV, stroke, chest pain, lupus, heart disease, CABG, coronary artery disease, cardiomyopathy, diabetes, PTSD, depression, hypertension, asthma, chronic pain syndrome and nicotine dependence comes in for L sided weakness and difficulty walking since yesterday. Has some weakness on L side from prior stroke.He says the weakness in LLE is more pronunced and unable to walk.Has gait difficulty.ALso has some LUE weakness and Dysarthria. Past Medical History Hypertension: Yes CVA: Yes (left sided weakness) Heart Attack/AMI: Yes Congestive Heart Failure: Yes Diabetes: Yes Seizures: Yes Psychiatric Treatment: Yes (PTSD,depression) Asthma: Yes COPD: Yes HIV: Yes Additional medical history: Cerebral palsy -Surgical History Additional Surgical History: CABG Social History Smoking Status: Never Smoker Substance Use Type: None - Medications Home Medications: Home Medications Medication Instructions Recorded Confirmed Last Taken Type Clopidogrel [Plavix] 75 mg PO DAILY #30 tablet 05/10/19 06/05/19 Unknown Rx ARIPiprazole [Abilify TAB] 15 mg PO DAILY 06/05/19 06/05/19 Unknown History Albuterol INH(or & Nicu Only) 2 puff IH Q4H PRN 06/05/19 06/05/19 Unknown History [ProAir HFA Inhaler] Aspirin [Adult Aspirin] 81 mg PO DAILY 06/05/19 06/05/19 Unknown History Doxepin [SINEquan] 100 mg PO QHS 06/05/19 06/05/19 Unknown History Fluticasone/Salmeterol(Nf) [Advair 2 puff IH BID 06/05/19 06/05/19 Unknown History HFA 230-21 mcg] Furosemide [Lasix TAB] 40 mg PO QDAY 06/05/19 06/05/19 Unknown History Insulin NPH Hum/Reg Insulin Hm 30 units SUB-Q QHS 06/05/19 06/05/19 Unknown History [Novolin 70-30 Flexpen] Insulin NPH/Regular [NovoLIN 70/30] 20 units SUB-Q QAM 06/05/19 06/05/19 Unknown History Ipratropium/Albuterol Sulfate 1 spray IH QID 06/05/19 06/05/19 Unknown History [Combivent Respimat] Metoprolol [Lopressor TAB] 100 mg PO BID 06/05/19 06/05/19 Unknown History Mirtazapine [Remeron 15mg TAB] 15 mg PO QHS 06/05/19 06/05/19 Unknown History Oxycodone HCl/Acetaminophen 1 each PO Q6HR PRN 06/05/19 06/05/19 Unknown History [Percocet 10/325 mg] Phenytoin [Dilantin] 300 mg PO QHS 06/05/19 06/05/19 Unknown History Potassium Chloride [K-Dur] 20 meq PO QDAY 06/05/19 06/05/19 Unknown History Rosuvastatin Calcium 40 mg PO QHS 06/05/19 06/05/19 Unknown History busPIRone [Buspar] 10 mg PO BID 06/05/19 06/05/19 Unknown History levETIRAcetam [Keppra TAB] 500 mg PO BID 06/05/19 06/05/19 Unknown History Review of Systems ROS: Stated complaint: FEVER/CHEST PAIN/SHORTNESS OF BREATH Other details as noted in HPI Constitutional: denies: fever Eyes: denies: eye discharge ENT: denies: epistaxis Respiratory: denies: shortness of breath Cardiovascular: chest pain Gastrointestinal: denies: abdominal pain Genitourinary: denies: dysuria Musculoskeletal: as per HPI Skin: as per HPI Neurological: as per HPI, weakness Psychiatric: as per HPI Hematological/Lymphatic: as per HPI Medications and Allergies Allergies Allergy/AdvReac Type Severity Reaction Status Date / Time metoclopramide [From Reglan] Allergy Anaphylaxis Verified 05/08/19 16:45 prochlorperazine Allergy Anaphylaxis Verified 05/08/19 16:45 [From Compazine] promethazine [From Phenergan] Allergy Anaphylaxis Verified 05/08/19 16:45 Home Medications Medication Instructions Recorded Confirmed Last Taken Type Clopidogrel [Plavix] 75 mg PO DAILY #30 tablet 05/10/19 06/05/19 Unknown Rx ARIPiprazole [Abilify TAB] 15 mg PO DAILY 06/05/19 06/05/19 Unknown History Albuterol INH(or & Nicu Only) 2 puff IH Q4H PRN 06/05/19 06/05/19 Unknown History [ProAir HFA Inhaler] Aspirin [Adult Aspirin] 81 mg PO DAILY 06/05/19 06/05/19 Unknown History Doxepin [SINEquan] 100 mg PO QHS 06/05/19 06/05/19 Unknown History Fluticasone/Salmeterol(Nf) [Advair 2 puff IH BID 06/05/19 06/05/19 Unknown History HFA 230-21 mcg] Furosemide [Lasix TAB] 40 mg PO QDAY 06/05/19 06/05/19 Unknown History Insulin NPH Hum/Reg Insulin Hm 30 units SUB-Q QHS 06/05/19 06/05/19 Unknown History [Novolin 70-30 Flexpen] Insulin NPH/Regular [NovoLIN 70/30] 20 units SUB-Q QAM 06/05/19 06/05/19 Unknown History Ipratropium/Albuterol Sulfate 1 spray IH QID 06/05/19 06/05/19 Unknown History [Combivent Respimat] Metoprolol [Lopressor TAB] 100 mg PO BID 06/05/19 06/05/19 Unknown History Mirtazapine [Remeron 15mg TAB] 15 mg PO QHS 06/05/19 06/05/19 Unknown History Oxycodone HCl/Acetaminophen 1 each PO Q6HR PRN 06/05/19 06/05/19 Unknown History [Percocet 10/325 mg] Phenytoin [Dilantin] 300 mg PO QHS 06/05/19 06/05/19 Unknown History Potassium Chloride [K-Dur] 20 meq PO QDAY 06/05/19 06/05/19 Unknown History Rosuvastatin Calcium 40 mg PO QHS 06/05/19 06/05/19 Unknown History busPIRone [Buspar] 10 mg PO BID 06/05/19 06/05/19 Unknown History levETIRAcetam [Keppra TAB] 500 mg PO BID 06/05/19 06/05/19 Unknown History Active Meds: Active Medications Nitroglycerin (Nitrostat) 0.4 mg SL .Q5MIN PRN PRN Reason: Chest Pain Last Admin: 01/21/20 13:50 Dose: 0.4 mg Documented by: Exam - Constitutional Vitals: Temp Pulse Resp BP Pulse Ox 96 H 16 99/70 96 01/21/20 15:42 01/21/20 15:42 01/21/20 15:42 01/21/20 15:42 General appearance: Present: no acute distress, well-nourished - EENT Eyes: Present: PERRL ENT: hearing intact, clear oral mucosa - Neck Neck: Present: supple, normal ROM - Respiratory Respiratory effort: normal Respiratory: bilateral: CTA - Cardiovascular Heart rate: 78 Rhythm: regular Heart Sounds: Present: S1 & S2. Absent: rub, click - Extremities Extremities: no ischemia, pulses symmetrical, No edema Peripheral Pulses: within normal limits - Abdominal General gastrointestinal: Present: soft, non-tender, non-distended, normal bowel sounds Male genitourinary: Present: normal - Rectal Rectal Exam: deferred - Integumentary Integumentary: Present: clear, warm, dry - Musculoskeletal Musculoskeletal: left sided weakness (3/5 power in LLE and 4/5 powert in LUE) - Psychiatric Psychiatric: appropriate mood/affect, intact judgment & insight - Neurologic Neurologic: CNII-XII intact, focal deficits, other (Gait abnormal) ARLEN score - Arlen Score Age > 65: (0) No Aspirin use within the Past 7 Days: (1) Yes 3 or more CAD Risk Factors: (1) Yes 2 or more Angina events in past 24 hrs: (0) No Known CAD with more than 50% Stenosis: (0) No Elevated Cardiac Markers: (0) No ST Deviation Greater than 0.5mm: (0) No ALREN Score: 2 Results - Labs CBC & Chem 7: 01/22/20 04:23 01/22/20 04:23 Labs: Laboratory Last Values WBC 5.3 K/mm3 (4.5-11.0) 01/21/20 12:50 RBC 4.38 M/mm3 (3.65-5.03) 01/21/20 12:50 Hgb 13.9 gm/dl (11.8-15.2) 01/21/20 12:50 Hct 39.8 % (35.5-45.6) 01/21/20 12:50 MCV 91 fl (84-94) 01/21/20 12:50 MCH 32 pg (28-32) 01/21/20 12:50 MCHC 35 % (32-34) H 01/21/20 12:50 RDW 13.6 % (13.2-15.2) 01/21/20 12:50 Plt Count 196 K/mm3 (140-440) 01/21/20 12:50 Lymph % (Auto) 30.6 % (13.4-35.0) 01/21/20 12:50 [place] % (Auto) 8.6 % (0.0-7.3) H 01/21/20 12:50 Eos % (Auto) 3.4 % (0.0-4.3) 01/21/20 12:50 Baso % (Auto) 0.7 % (0.0-1.8) 01/21/20 12:50 Lymph # 1.6 K/mm3 (1.2-5.4) 01/21/20 12:50 [place] # 0.5 K/mm3 (0.0-0.8) 01/21/20 12:50 Eos # 0.2 K/mm3 (0.0-0.4) 01/21/20 12:50 Baso # 0.0 K/mm3 (0.0-0.1) 01/21/20 12:50 Seg Neutrophils % 56.7 % (40.0-70.0) 01/21/20 12:50 Seg Neutrophils # 3.0 K/mm3 (1.8-7.7) 01/21/20 12:50 PT 13.6 Sec. (12.2-14.9) 01/21/20 12:50 INR 1.03 (0.87-1.13) 01/21/20 12:50 APTT 29.0 Sec. (24.2-36.6) 01/21/20 12:50 Thrombin Time 18.0 Sec. (15.1-19.6) 01/21/20 12:50 Sodium 138 mmol/L (137-145) 01/21/20 12:50 Potassium 4.0 mmol/L (3.6-5.0) 01/21/20 12:50 Chloride 99.1 mmol/L (98-107) 01/21/20 12:50 Carbon Dioxide 24 mmol/L (22-30) 01/21/20 12:50 Anion Gap 19 mmol/L 01/21/20 12:50 BUN 14 mg/dL (9-20) 01/21/20 12:50 Creatinine 0.9 mg/dL (0.8-1.5) 01/21/20 12:50 Estimated GFR > 60 ml/min 01/21/20 12:50 BUN/Creatinine Ratio 16 % 01/21/20 12:50 Glucose 86 mg/dL (75-100) 01/21/20 12:50 POC Glucose 74 (70-105) 01/21/20 12:12 Calcium 9.2 mg/dL (8.4-10.2) 01/21/20 12:50 Total Bilirubin 1.10 mg/dL (0.1-1.2) 01/21/20 12:50 AST 57 units/L (5-40) H 01/21/20 12:50 ALT 94 units/L (7-56) H 01/21/20 12:50 Alkaline Phosphatase 97 units/L (35-129) 01/21/20 12:50 Total Creatine Kinase 132 units/L (55-170) 01/21/20 12:50 CK-MB (CK-2) 2.3 ng/mL (0.0-4.0) 01/21/20 12:50 CK-MB (CK-2) Rel Index 1.7 (0-4) 01/21/20 12:50 Troponin T < 0.010 ng/mL (0.00-0.029) 01/21/20 12:50 Total Protein 8.1 g/dL (6.3-8.2) 01/21/20 12:50 Albumin 4.3 g/dL (3.9-5) 01/21/20 12:50 Albumin/Globulin Ratio 1.1 % 01/21/20 12:50 Urine Color Yellow (Yellow) 01/21/20 13:52 Urine Turbidity Clear (Clear) 01/21/20 13:52 Urine pH 5.0 (5.0-7.0) 01/21/20 13:52 Ur Specific [place] 1.027 (1.003-1.030) 01/21/20 13:52 Urine Protein <15 mg/dl mg/dL (Negative) 01/21/20 13:52 Urine Glucose (UA) Neg mg/dL (Negative) 01/21/20 13:52 Urine Ketones Neg mg/dL (Negative) 01/21/20 13:52 Urine Blood Neg (Negative) 01/21/20 13:52 Urine Nitrite Neg (Negative) 01/21/20 13:52 Urine Bilirubin Neg (Negative) 01/21/20 13:52 Urine Urobilinogen 2.0 mg/dL (<2.0) 01/21/20 13:52 Ur Leukocyte Esterase Neg (Negative) 01/21/20 13:52 Urine WBC (Auto) 1.0 /HPF (0.0-6.0) 01/21/20 13:52 Urine RBC (Auto) 5.0 /HPF (0.0-6.0) 01/21/20 13:52 U Epithel Cells (Auto) 1.0 /HPF (0-13.0) 01/21/20 13:52 Urine Mucus 3+ /HPF 01/21/20 13:52 Salicylates < 0.3 mg/dL (2.8-20.0) L 01/21/20 12:50 Urine Opiates Screen Presumptive negative 01/21/20 13:52 Urine Methadone Screen Presumptive negative 01/21/20 13:52 Acetaminophen < 5.0 ug/mL (10.0-30.0) L 01/21/20 12:50 Ur Barbiturates Screen Presumptive negative 01/21/20 13:52 Ur Phencyclidine Scrn Presumptive negative 01/21/20 13:52 Ur Amphetamines Screen Presumptive negative 01/21/20 13:52 U Benzodiazepines Scrn Presumptive negative 01/21/20 13:52 Urine Cocaine Screen Presumptive negative 01/21/20 13:52 U Marijuana (THC) Screen Presumptive negative 01/21/20 13:52 Drugs of Abuse Note Disclamer 01/21/20 13:52 Plasma/Serum Alcohol < 0.01 % (0-0.07) 01/21/20 12:50 Short CBC 01/21/20 01/22/20 Range/Units 12:50 04:23 WBC 5.3 3.5 L (4.5-11.0) K/mm3 Hgb 13.9 12.5 (11.8-15.2) gm/dl Hct 39.8 36.3 (35.5-45.6) % Plt Count 196 178 (140-440) K/mm3 BMP 01/21/20 01/22/20 12:50 04:23 Sodium 138 137 Potassium 4.0 3.7 Chloride 99.1 101.9 Carbon Dioxide 24 19 L BUN 14 13 Creatinine 0.9 0.8 Glucose 86 117 H Calcium 9.2 8.2 L Cardiac Enzymes 01/21/20 Range/Units 12:50 Total Creatine Kinase 132 (55-170) units/L CK-MB (CK-2) 2.3 (0.0-4.0) ng/mL Troponin T < 0.010 (0.00-0.029) ng/mL Liver Function 01/21/20 01/22/20 Range/Units 12:50 04:23 Total Bilirubin 1.10 0.60 (0.1-1.2) mg/dL AST 57 H 37 (5-40) units/L ALT 94 H 69 H (7-56) units/L Alkaline Phosphatase 97 86 (35-129) units/L Albumin 4.3 3.5 L (3.9-5) g/dL Urine 01/21/20 Range/Units 13:52 Urine Color Yellow (Yellow) Urine pH 5.0 (5.0-7.0) Ur Specific [place] 1.027 (1.003-1.030) Urine Protein <15 mg/dl (Negative) mg/dL Urine Glucose (UA) Neg (Negative) mg/dL - Imaging and Cardiology EKG: report reviewed Imaging and Cardiology: Neck CTA [place] CTA Head CT and CXR --NAF or blockages [place]/IV: IV Catheter Type [Left INT / Saline Lock Antecubital] Assessment and Plan Advance Directives: Yes (FC) VTE prophylaxis?: Chemical Plan of care discussed with patient/family: Yes - Patient Problems (1) Acute CVA (cerebrovascular accident) Current Visit: Yes Status: Acute Plan to address problem: Has increased wekaness on L side Stroke protocol MRA and CDS not ordered b/c of CTAs done in ED Neuro consult Statins (2) CAD (coronary artery disease) Current Visit: Yes Status: Chronic Qualifiers: Coronary Disease-Associated Artery/Lesion type: [place] artery [place] vs. transplanted heart: [place] heart Plan to address problem: On ASA and Statins (3) Hx of CABG Current Visit: Yes Status: Chronic (4) HTN (hypertension) Current Visit: No Status: Acute Qualifiers: Hypertension type: essential hypertension Qualified Code(s): I10 - Essential (primary) hypertension (5) Seizure Current Visit: No Status: Chronic Plan to address problem: COnt Keppra and phenytoin (6) CHF (congestive heart failure) Current Visit: No Status: Chronic Qualifiers: Heart failure chronicity: chronic Plan to address problem: Cont lasix (7) COPD (chronic obstructive pulmonary disease) Current Visit: No Status: Chronic Qualifiers: Chronic bronchitis type: mixed simple and mucopurulent Plan to address problem: Bronchodilators prn (8) Nicotine dependence Current Visit: No Status: Chronic Qualifiers: Nicotine product type: cigarettes Plan to address problem: Counselled and Nicoderm patch for now (9) IDDM (insulin dependent diabetes mellitus) Current Visit: Yes Status: Chronic Plan to address problem: Cont Home INsulin and coverage Check A1c (10) DVT prophylaxis Current Visit: No Status: Acute Plan to address problem: On Heparin
[2020-01-21] MEDS ORDERED: ALBUTEROL 8.5 GM INHALATION IH PRN (20:52)
[2020-01-21] MEDS ORDERED: ACETAMINOPHEN 325 MG TAB PO PRN (20:54)
[2020-01-21] MEDS ORDERED: HYDROmorphone 1 MG/1 ML INJ IV PRN (20:54)
[2020-01-21] MEDS ORDERED: ONDANSETRON 4 MG/2 ML INJ IV PRN (20:54)
[2020-01-21] MEDS ORDERED: METOCLOPRAMIDE 10 MG/2 ML INJ IV PRN (20:54)
[2020-01-21] MEDS ORDERED: PROMETHAZINE 25 MG RECT SUPP PR PRN (20:54)
[2020-01-21] MEDS ORDERED: ASPIRIN EC 81 MG TAB PO SCH (21:00)
[2020-01-21] MEDS ORDERED: ALBUTEROL 2.5 MG/3 ML NEBU IH PRN (21:45)
[2020-01-21] MEDS ORDERED: MIRTAZAPINE 15 MG TAB PO SCH (22:00)
[2020-01-21] MEDS ORDERED: SALMETEROL IH SCH (22:00)
[2020-01-21] MEDS ORDERED: FLUTICASONE IH SCH (22:00)
[2020-01-21] MEDS ORDERED: PHENYTOIN 100 MG CAPSULE.ER PO SCH (22:00)
[2020-01-21] MEDS ORDERED: INSULIN NPH HUM SUB-Q SCH (22:00)
[2020-01-21] MEDS ORDERED: DOXEPIN 100 MG CAP PO SCH (22:00)
[2020-01-21] MEDS ORDERED: REG INSULIN SUB-Q SCH (22:00)
[2020-01-21] MEDS: levETIRAcetam 500 MG TAB PO SCH (22:11)
[2020-01-21] MEDS: FAMOTIDINE 20 MG TAB PO SCH (22:11)
[2020-01-21] MEDS: POTASSIUM CHLORIDE ER 20 MEQ TAB PO SCH (22:11)
[2020-01-21] MEDS: oxyCODONE /ACETAMINOPHEN 5-325MG TAB PO PRN (22:12)
[2020-01-21] MEDS: oxyCODONE 5 MG TAB PO PRN (22:12)
[2020-01-21] MEDS: METOPROLOL TARTRATE 100 MG TAB PO SCH (23:13)
[2020-01-21] MEDS: busPIRone 10 MG TAB PO SCH (23:14)
[2020-01-21] MEDS: ARIPiprazole 15 MG TAB PO SCH (23:14)
[2020-01-21] MEDS: INSULIN LISPRO 100 UNIT/ML SUB-Q SCH (23:15)
[2020-01-22 05:03] LABS: Eosinophils % (Auto) 5.6 % (0.0-4.3); Lymphocytes % (Auto) 47.2 % (13.4-35.0)
[2020-01-22 05:09] LABS: Eosinophils # (Auto) 0.2 K/mm3 (0.0-0.4); Hematocrit 36.3 % (35.5-45.6); Hemoglobin 12.5 gm/dl (11.8-15.2); Lymphocytes # (Auto) 1.6 K/mm3 (1.2-5.4); Mean Corpuscular HGB Conc 35 % (32-34); Mean Corpuscular Volume 93 fl (84-94); Monocytes # (Auto) 0.4 K/mm3 (0.0-0.8); Platelet Count 178 K/mm3 (140-440); Red Cell Distribution Width 13.5 % (13.2-15.2)
[2020-01-22 05:46] LABS: Alanine Aminotransferase 69 units/L (7-56); Albumin 3.5 g/dL (3.9-5); BUN/Creatinine Ratio 16; Blood Urea Nitrogen 13 mg/dL (9-20); Calcium 8.2 mg/dL (8.4-10.2); HDL Cholesterol 40 mg/dL (40-59); Hemolysis Index 7; LDL Cholesterol,Direct 72 mg/dL (50-130)
[2020-01-22] MEDS: INSULIN LISPRO 100 UNIT/ML SUB-Q SCH ×3 (07:57→16:44)
[2020-01-22] MEDS ORDERED: INSULIN NPH/REGULAR 70/30 INJ SUB-Q SCH (08:00)
[2020-01-22] MEDS: METOPROLOL TARTRATE 100 MG TAB PO SCH (08:15)
[2020-01-22] MEDS: ARFORMOTEROL 15 MCG/2 ML NEBU IH SCH ×2 (09:03→14:38)
[2020-01-22] MEDS: BUDESONIDE 0.5 MG/2 ML NEBU IH SCH ×2 (09:04→14:39)
[2020-01-22] MEDS ORDERED: HEPARIN 5,000 UNIT/1 ML VIAL SUB-Q SCH (10:00)
[2020-01-22] MEDS ORDERED: CLOPIDOGREL 75 MG TAB PO SCH (10:00)
[2020-01-22] MEDS ORDERED: ASPIRIN 325 MG TAB PO SCH (10:00)
[2020-01-22] MEDS ORDERED: FUROSEMIDE 40 MG TAB PO SCH (10:00)
--- NOTE | 2020-01-22 10:09 | Magnetic Resonance Report ---
MRI BRAIN WITHOUT CONTRAST INDICATION / CLINICAL INFORMATION: Left-sided weakness and difficulty walking. TECHNIQUE: Multiplanar, multisequence MR images of the brain were obtained. COMPARISON: Head CT on 01/21/2020. Brain MRIs on 06/05/2019 and 05/09/2019. FINDINGS: BRAIN / INTRACRANIAL CONTENTS: No acute ischemia, acute hemorrhage, mass effect, midline shift, or hy drocephalus. Stable asymmetric decreased volume of the right cerebral hemisphere with ex vacuo dilat ion of the right lateral ventricle (likely developmental) with decreased gyration. CRANIOCERVICAL JUNCTION: No significant abnormality. VASCULAR FLOW-VOIDS: No significant abnormality. ORBITS: No significant abnormality of visualized orbits. SINUSES / MASTOIDS: No significant abnormality of visualized sinuses and mastoid air cells. ADDITIONAL FINDINGS: None. IMPRESSION: 1. No acute intracranial abnormality. Stable chronic findings compared with multiple previous brain M RIs. Signer Name: Dick Sandy MD Signed: 01/22/2020 10:05 AM Workstation Name: [id number]
[2020-01-22] MEDS: NICOTINE 14 MG/24 HR PATCH TD SCH ×2 (10:18→10:43)
[2020-01-22] MEDS: FAMOTIDINE 20 MG TAB PO SCH (10:18)
[2020-01-22] MEDS: POTASSIUM CHLORIDE ER 20 MEQ TAB PO SCH (10:19)
[2020-01-22] MEDS: levETIRAcetam 500 MG TAB PO SCH (10:19)
[2020-01-22] MEDS: busPIRone 10 MG TAB PO SCH (10:20)
[2020-01-22] MEDS: ARIPiprazole 15 MG TAB PO SCH (10:21)
[2020-01-22] MEDS: oxyCODONE /ACETAMINOPHEN 5-325MG TAB PO PRN (10:41)
[2020-01-22] MEDS: oxyCODONE 5 MG TAB PO PRN (10:45)
[2020-01-22] MEDS ORDERED: FLU VACC QUAD 2019-20 (3 YR UP)/PF 60 MCG/0.5 ML SYRINGE IM ONE (12:00)
--- NOTE | 2020-01-22 13:00 | Discharge Summary ---
Providers - Providers Date of Admission: 01/21/20 14:19 Date of discharge: 01/22/20 Attending physician: JUWAN BROWN 01/21/20 20:54 Consult to Physician [CONS] Routine Comment: Consulting Provider: TRISTIAN VIGIL Physician Instructions: Reason For Exam: cva 01/21/20 20:59 Occupational Therapy Evaluate and Treat [CONS] Routine Comment: Reason For Exam: Neuro deficits Physical Therapy Evaluation and Treat [CONS] Routine Comment: Reason For Exam: Neuro deficits Primary care physician: SENIOR INVESTMENT MANAGER Hospitalization Condition: Stable Hospital course: 54-year-old male past medical history includes HIV, h/o stroke with left-sided weakness, lupus, CABG with coronary artery disease, cardiomyopathy, diabetes, PTSD, depression, hypertension, asthma, chronic pain syndrome and nicotine dependence comes in for L sided weakness and difficulty walking for 1 day. Has some weakness on L side from prior stroke.he stated that the weakness in LLE is more pronunced and unable to walk. Patient was admitted with stroke protocol. Following admission patient noted playing on his phone using his plegic side, raising more suspicion for psychogenic etiology. CT head, CTA head neck in the ER did not show any acute process. MRI of the brain obtained and showed no acute infarct. 2D echo showed preserved EF. Patient was then discharged from the hospital with outpatient follow-up and recommended to be compliant with the medications. Discharge diagnosis: Acute CVA, ruled out -Episodes could be psychogenic -CT head, CTA head neck and MRI brain did not show any acute process -Patient will continue aspirin and statin Coronary artery disease, status post CABG -Continue aspirin statin and beta-vero Hypertension, stable Seizure disorder chronic -On Keppra/Dilantin Developmental delay with a right cerebral atrophy, supportive care CHF, with diastolic dysfunction, compensated COPD without any exacerbation Nicotine dependence, counseled for cessation Chronic pain syndrome, pain management clinic follow-up Insulin-dependent diabetes mellitus type 2, continue home insulin regimen Physical exam: GENERAL: well-developed and well-nourished male lying on bed appeared to be in no discomfort. HEENT: Normocephalic. Atraumatic. No conjunctival congestion or icterus. Patient has moist mucous membranes. NECK: Supple. Trachea midline. CHEST/LUNGS: Clear to auscultated bilaterally, breathing nonlabored. No wheezes crackles or rhonchi. HEART/CARDIOVASCULAR: Regular in rate and rhythm. S1 and S2 positive. ABDOMEN: Abdomen is soft, nontender. Patient has normal bowel sounds. SKIN: There is no rash. Warm and dry. NEURO: Left-sided weakness. Follows command. MUSCULOSKELETAL: No joint effusion or tenderness. EXTRIMITY: No edema, no cyanosis or clubbing. PSYCH: Cooperative. Disposition: [id number] HOME UNDER HOME [facility] Time spent for discharge: 34 minutes Core Measure Documentation - Palliative Care Palliative Care/ Comfort Measures: Not Applicable - Core Measures Any of the following diagnoses?: history only Exam - Constitutional Vitals: Temp Pulse Resp BP Pulse Ox 97.4 F L 69 20 89/58 94 01/22/20 11:08 01/22/20 11:08 01/22/20 11:08 01/22/20 11:08 01/22/20 11:08 Plan Activity: fall precautions Weight Bearing Status: Non-Weight Bearing Diet: low fat, low salt Special Instructions: smoking cessation, home health RN Follow up with: PRIMARY MD YESENIA [Primary Care Provider] - 3-5 Days LEONIDAS SIMON MD [Staff Physician] - 7 Days
[2020-01-22 13:44] VITALS: BP 105/63
--- NOTE | 2020-01-22 14:55 | Consultation ---
Medications and Allergies Allergies Allergy/AdvReac Type Severity Reaction Status Date / Time metoclopramide [From Reglan] Allergy Anaphylaxis Verified 05/08/19 16:45 prochlorperazine Allergy Anaphylaxis Verified 05/08/19 16:45 [From Compazine] promethazine [From Phenergan] Allergy Anaphylaxis Verified 05/08/19 16:45 Home Medications Medication Instructions Recorded Confirmed Last Taken Type Clopidogrel [Plavix] 75 mg PO DAILY #30 tablet 05/10/19 06/05/19 Unknown Rx ARIPiprazole [Abilify TAB] 15 mg PO DAILY 06/05/19 06/05/19 Unknown History Albuterol INH(or & Nicu Only) 2 puff IH Q4H PRN 06/05/19 06/05/19 Unknown History [ProAir HFA Inhaler] Aspirin [Adult Aspirin] 81 mg PO DAILY 06/05/19 06/05/19 Unknown History Doxepin [SINEquan] 100 mg PO QHS 06/05/19 06/05/19 Unknown History Fluticasone/Salmeterol(Nf) [Advair 2 puff IH BID 06/05/19 06/05/19 Unknown History HFA 230-21 mcg] Furosemide [Lasix TAB] 40 mg PO QDAY 06/05/19 06/05/19 Unknown History Insulin NPH Hum/Reg Insulin Hm 30 units SUB-Q QHS 06/05/19 06/05/19 Unknown History [Novolin 70-30 Flexpen] Insulin NPH/Regular [NovoLIN 70/30] 20 units SUB-Q QAM 06/05/19 06/05/19 Unknown History Ipratropium/Albuterol Sulfate 1 spray IH QID 06/05/19 06/05/19 Unknown History [Combivent Respimat] Metoprolol [Lopressor TAB] 100 mg PO BID 06/05/19 06/05/19 Unknown History Mirtazapine [Remeron 15mg TAB] 15 mg PO QHS 06/05/19 06/05/19 Unknown History Oxycodone HCl/Acetaminophen 1 each PO Q6HR PRN 06/05/19 06/05/19 Unknown History [Percocet 10/325 mg] Phenytoin [Dilantin] 300 mg PO QHS 06/05/19 06/05/19 Unknown History Potassium Chloride [K-Dur] 20 meq PO QDAY 06/05/19 06/05/19 Unknown History Rosuvastatin Calcium 40 mg PO QHS 06/05/19 06/05/19 Unknown History busPIRone [Buspar] 10 mg PO BID 06/05/19 06/05/19 Unknown History levETIRAcetam [Keppra TAB] 500 mg PO BID 06/05/19 06/05/19 Unknown History Active Meds: Active Medications Acetaminophen (Tylenol) 650 mg PO Q4H PRN PRN Reason: Pain MILD(1-3)/Fever >100.5/GARCIA Albuterol (Proventil) 2.5 mg IH Q4HRT PRN PRN Reason: Shortness Of Breath Arformoterol Tartrate (Brovana Nebu) 15 mcg IH Q12HRT [facility] Last Admin: 01/22/20 09:03 Dose: Not Given Documented by: Aripiprazole (Abilify) 15 mg PO DAILY [facility] Last Admin: 01/22/20 10:21 Dose: 15 mg Documented by: Aspirin (Aspirin) 325 mg PO QDAY [facility] Last Admin: 01/22/20 10:19 Dose: 325 mg Documented by: Atorvastatin Calcium (Lipitor) 40 mg PO QHS [facility] Last Admin: 01/21/20 22:11 Dose: 40 mg Documented by: Budesonide (Pulmicort) 0.5 mg IH Q12HRT [facility] Last Admin: 01/22/20 09:04 Dose: Not Given Documented by: Buspirone HCl (Buspar) 10 mg PO BID [facility] Last Admin: 01/22/20 10:20 Dose: 10 mg Documented by: Clopidogrel Bisulfate (Plavix) 75 mg PO DAILY [facility] Last Admin: 01/22/20 10:19 Dose: 75 mg Documented by: Doxepin HCl (Sinequan) 100 mg PO QHS [facility] Last Admin: 01/21/20 23:15 Dose: 100 mg Documented by: Famotidine (Pepcid) 20 mg PO BID [facility] Last Admin: 01/22/20 10:18 Dose: 20 mg Documented by: Furosemide (Lasix) 40 mg PO QDAY [facility] Last Admin: 01/22/20 10:19 Dose: 40 mg Documented by: Heparin Sodium (Porcine) (Heparin) 5,000 unit SUB-Q Q12HR [facility] Last Admin: 01/22/20 10:18 Dose: 5,000 unit Documented by: Hydromorphone HCl (Dilaudid) 0.5 mg IV Q3H PRN PRN Reason: Pain , Severe (7-10) Insulin Human Isoph/Insulin Regular (Humulin 70/30) 20 unit SUB-Q BIDDIAB [facility] Last Admin: 01/22/20 08:10 Dose: Not Given Documented by: Insulin Human Lispro (Humalog) 0 unit SUB-Q ACHS [facility]; Protocol Last Admin: 01/22/20 11:57 Dose: Not Given Documented by: Levetiracetam (Keppra) 500 mg PO BID [facility] Last Admin: 01/22/20 10:19 Dose: 500 mg Documented by: Metoprolol Tartrate (Metoprolol) 100 mg PO BID@0800,1700 [facility] Last Admin: 01/22/20 08:15 Dose: Not Given Documented by: Mirtazapine (Remeron) 15 mg PO QHS [facility] Last Admin: 01/21/20 22:12 Dose: 15 mg Documented by: Nicotine (Habitrol) 14 mg TD QDAY [facility] Last Admin: 01/22/20 10:43 Dose: Not Given Documented by: Nitroglycerin (Nitrostat) 0.4 mg SL .Q5MIN PRN PRN Reason: Chest Pain Last Admin: 01/21/20 13:50 Dose: 0.4 mg Documented by: Ondansetron HCl (Zofran) 4 mg IV Q8H PRN PRN Reason: Nausea And Vomiting Oxycodone HCl (Roxicodone) 5 mg PO Q6H PRN PRN Reason: Pain, Moderate (4-6) Last Admin: 01/22/20 10:45 Dose: 5 mg Documented by: Oxycodone/Acetaminophen (Percocet 5/325) 1 tab PO Q6H PRN PRN Reason: Pain, Moderate (4-6) Last Admin: 01/22/20 10:41 Dose: 1 tab Documented by: Phenytoin (Dilantin) 300 mg PO QHS [facility] Last Admin: 01/21/20 22:11 Dose: 300 mg Documented by: Potassium Chloride (K-Dur) 20 meq PO QDAY [facility] Last Admin: 01/22/20 10:19 Dose: 20 meq Documented by: Sodium Chloride (Sodium Chloride Flush Syringe 10 Ml) 10 ml IV BID [facility] Last Admin: 01/22/20 10:20 Dose: 10 ml Documented by: Sodium Chloride (Sodium Chloride Flush Syringe 10 Ml) 10 ml IV PRN PRN PRN Reason: LINE FLUSH Physical Examination - Vital Signs Vital Signs: Vital Signs Pulse Resp BP Pulse Ox 96 H 16 99/70 96 01/21/20 15:42 01/21/20 15:42 01/21/20 15:42 01/21/20 15:42 Results - Laboratory Findings CBC and BMP: 01/22/20 04:23 01/22/20 04:23 Abnormal Lab Findings: Abnormal Labs 01/21/20 01/21/20 01/21/20 12:50 12:50 12:50 WBC MCHC 35 H Lymph % (Auto) Rosebud % (Auto) 8.6 H Eos % (Auto) Seg Neutrophils % Seg Neutrophils # Carbon Dioxide Glucose POC Glucose Calcium AST 57 H ALT 94 H Albumin Salicylates < 0.3 L Acetaminophen 01/21/20 01/21/20 01/22/20 12:50 22:07 04:23 WBC 3.5 L MCHC 35 H Lymph % (Auto) 47.2 H Rosebud % (Auto) 11.0 H Eos % (Auto) 5.6 H Seg Neutrophils % 35.2 L Seg Neutrophils # 1.3 L Carbon Dioxide Glucose POC Glucose 126 H Calcium AST ALT Albumin Salicylates Acetaminophen < 5.0 L 01/22/20 01/22/20 04:23 11:19 WBC MCHC Lymph % (Auto) Rosebud % (Auto) Eos % (Auto) Seg Neutrophils % Seg Neutrophils # Carbon Dioxide 19 L Glucose 117 H POC Glucose 144 H Calcium 8.2 L AST ALT 69 H Albumin 3.5 L Salicylates Acetaminophen Assessment and Plan 54 YR OLD MALE WITH HISTORY OF HTN,PTSD,DM,HIV,CAD DISEASE WHO PRESENT ED TO ER ON 01/21/2020 WITH ONSET OF LEFT SIDED WEAKNESS. PATIENT HAS A HISTORY OF SIMILAR PRESENTATION IN THE PAST WITH IMAGING STUDIES SHOWING NO EVIDENCE OF INFARCT.HE HAD CTA AND CT SCAN OF THE BRAIN YESTERDAY FOLLOWING HIS PRESENTATION TO THE ER,CT SCAN DID NOT SHOW ANY ACUTE CHANGE,HE MORRHAGE OR INFARCT, CT SCAN ALSO SHOWED ATROPHY OF THE RIGHT CEREBRAL HEMISPHERE, WHICH SEEMS TO BE DEVELOPEMENTAL. CTA SHOWED LEFT MCA DISTAL M1 SEGMENT NARROWING COMPARED TO THE RIGHT SIDE. PATIENT WAS FOUND TO PLAY WITH HIS CELL PHONE USING THE HEMIPLEGIC DISTAL UPPER EXTREMITY WHICH RAISED THE POSSIBILITY OF PSYCHOGENIC OVERPLAY. PHYSICAL EXAMINATION- GENERAL- PATIENT IS ALERT AND APPROPRIATE. ANSWERS QUESTIONS APPROPRIATELY. HEART-NORMAL RATE AND RHYTHM. CAROTIDS-BOTH PALPABLE, CRANIAL NERVES- NO FACIAL ASYMMETRY OR WEAKNESS, OTHER CRANIAL NERVES ARE WITH IN NORMAL, LIMIT MOTOR- WEAK LEFT UPPER AND LOWER EXTREMITIES REFLEXES- INCREASED ON THE LEFT SIDE SENSORY- GROSSLY WITH IN NORMAL LIMIT, GAIT-CAN NOT AMBULATE WITH OUT ANY ASSISTIVE DEVICE. IMPRESSION. 1. 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 RECOMMEND 1. PSYCH EVALUATION FOR CONVERSION DISORDER OUT PATIENT 2. ASPIRIN 81MG PO QD.. 3.CONTINUE OTHER MEDS PRESCRIBED.
== END 2020-01-22 16:43 | disposition home health service (06) | DRG 948 ==
LOC: ED 11:20 → 4A 14:19
PROVIDERS: ADMIT Internal Medicine; ATTEND Internal Medicine
DX: R53.1 Weakness (principal); I69.354 Hemiplegia and hemiparesis following cerebral infarction affecting left non-dominant side; I42.9 Cardiomyopathy, unspecified; I50.32 Chronic diastolic (congestive) heart failure; G31.9 Degenerative disease of nervous system, unspecified; I25.10 Atherosclerotic heart disease of native coronary artery without angina pectoris; E11.9 Type 2 diabetes mellitus without complications; F43.10 Post-traumatic stress disorder, unspecified; F32.9 Major depressive disorder, single episode, unspecified; F17.200 Nicotine dependence, unspecified, uncomplicated; J45.909 Unspecified asthma, uncomplicated; G89.4 Chronic pain syndrome; R56.9 Unspecified convulsions; J44.9 Chronic obstructive pulmonary disease, unspecified; I11.0 Hypertensive heart disease with heart failure; Z87.898 Personal history of other specified conditions; Z95.1 Presence of aortocoronary bypass graft; Z88.8 Allergy status to other drugs, medicaments and biological substances; I25.2 Old myocardial infarction; Z79.4 Long term (current) use of insulin; Z71.6 Tobacco abuse counseling
CPT/HCPCS: 36415; 70450; 70496; 70498; 70551; 71045; 80053; 80061; 80307; 80320; 81001; 82550; 82553; 82962; 83036; 84484; 85025; 85610; 85670; 85730; 87641; 90686; 93005; 93306; 94640; G0378; A9270-GY; G0480; J1644; J1815; J7040; Q9967

== ENCOUNTER 2020-04-12 19:50 | Inpatient (IN) | payer MEDICARE ==
--- NOTE | 2020-04-12 20:18 | Emergency Department Report ---
ED Neuro Deficit HPI - General Chief Complaint: Neuro Symptoms/Deficit Stated Complaint: LEFT SIDE NUMBNESS Time Seen by Provider: 04/12/20 20:14 Source: patient Mode of arrival: Ambulatory Limitations: Physical Limitation - History of Present Illness Initial Comments: [facility] Date of Service: 04/12/2020 19:55:40 Impression: Rule Out Acute Ischemic Stroke Comments/Sign-Out: acute onset left sided weakness, worse than baseline - concerning for new right hemisphere stroke. Outside tpa window. Recommend CTA head/neck to eval for LVO. Mechanism of Stroke: Possible Thromboembolic Possible Cardioembolic Small Vessel Disease Metrics: Last Known Well: 04/12/2020 13:00:00 [employer] Notification Time: 04/12/2020 19:55:13 Arrival Time: 04/12/2020 19:50:00 Stamp Time: 04/12/2020 19:55:40 Time First Login Attempt: 04/12/2020 20:02:51 Video Start Time: 04/12/2020 20:02:51 Symptoms: L sided weakenss. NIHSS Start Assessment Time: 04/12/2020 20:08:23 Patient is not a candidate for tPA. Patient was not deemed candidate for tPA thrombolytics because of Last Well Known Above 4.5 Hours. Video End Time: 04/12/2020 20:14:46 CT head showed no acute hemorrhage or acute core infarct. CT head was reviewed. Clinical Presentation is Suggestive of Large Vessel Occlusive Disease, Recomm endations are as Follows CTA Head and Neck. ED Physician notified of diagnostic impression and management plan on 04/12/2020 20:14:47 Our recommendations are outlined below. Recommendations: Activate Stroke Protocol Admission/Order Set Stroke/Telemetry Floor Neuro Checks Bedside Swallow Eval DVT Prophylaxis IV Fluids, Normal Saline Head of Bed 30 Degrees Euglycemia and Avoid Hyperthermia (PRN Acetaminophen) continue plavix if CT head is neg for hemorrhage. Routine Consultation with Inhouse Neurology for Follow up Care Sign Out: Discussed with Emergency Department Provider History of Present Illness: Patient is a 54 year old Male. Patient was brought by private transportation with symptoms of L sided weakenss. 54 yo man with acute onset left sided weakness noted at approx 1700 when he woke up from a nap. He went to sleep at approx 1300, which is the N time. The left face,arm, and leg are involved. He also notes numbness. He takes plavix. He has baseline L sided weakness, but it is weaker than normal. Examination: 1A: Level of Consciousness - Alert; keenly responsive + 0 1B: Ask Month and Age - Could Not Answer Either Question Correctly + 2 1C: Blink Eyes & Squeeze Hands - Performs Both Tasks + 0 2: Test Horizontal Extraocular Movements - Partial Gaze Palsy: Can Be Overcome + 1 3: Test Visual Cam - No Visual Loss + 0 4: Test Facial Palsy (Use Grimace if Obtunded) - Minor paralysis (flat nasolabial fold, smile asymmetry) + 1 5A: Test Left Arm Motor Drift - No Movement + 4 5B: Test Right Arm Motor Drift - No Drift for 10 Seconds + 0 6A: Test Left Leg Motor Drift - Some Effort Against Jackson + 2 6B: Test Right Leg Motor Drift - No Drift for 5 Seconds + 0 7: Test Limb Ataxia (FNF/Heel-Love) - No Ataxia + 0 8: Test Sensation - Complete Loss: Cannot Sense Being Touched At All + 2 9: Test Language/Aphasia - Normal; No aphasia + 0 10: Test Dysarthria - Normal + 0 11: Test Extinction/Inattention - No abnormality + 0 NIHSS Score: 12 Due to the immediate potential for life-threatening deterioration due to underlying acute neurologic illness, I spent 35 minutes providing critical care. This time includes time for face to face visit via telemedicine, review of medical records, imaging studies and discussion of findings with providers, the patient and/or family. Dr Mariano [facility] Case [id number] - Related Data Home Medications: Home Medications Medication Instructions Recorded Confirmed Last Taken ARIPiprazole [Abilify TAB] 15 mg PO DAILY 06/05/19 01/22/20 Unknown Albuterol Mdi (or & Nicu Only) 2 puff IH Q4H PRN 06/05/19 01/22/20 Unknown [ProAir HFA Inhaler] Aspirin [Adult Aspirin] 81 mg PO DAILY 06/05/19 01/22/20 Unknown Doxepin [SINEquan] 100 mg PO QHS 06/05/19 01/22/20 Unknown Fluticasone/Salmeterol(Nf) [Advair 2 puff IH BID 06/05/19 01/22/20 Unknown HFA 230-21 mcg] Furosemide [Lasix TAB] 40 mg PO QDAY 06/05/19 01/22/20 Unknown Insulin NPH Hum/Reg Insulin Hm 30 units SUB-Q QHS 06/05/19 01/22/20 Unknown [Novolin 70-30 Flexpen] Insulin NPH/Regular [NovoLIN 70/30] 20 units SUB-Q QAM 06/05/19 01/22/20 Unknown Ipratropium/Albuterol Sulfate 1 spray IH QID 06/05/19 01/22/20 Unknown [Combivent Respimat] Metoprolol [Lopressor TAB] 100 mg PO BID 06/05/19 01/22/20 Unknown Mirtazapine [Remeron 15mg TAB] 15 mg PO QHS 06/05/19 01/22/20 Unknown Oxycodone HCl/Acetaminophen 1 each PO Q6HR PRN 06/05/19 01/22/20 Unknown [Percocet 10/325 mg] Phenytoin [Dilantin] 300 mg PO QHS 06/05/19 01/22/20 Unknown Potassium Chloride [K-Dur] 20 meq PO QDAY 06/05/19 01/22/20 Unknown Rosuvastatin Calcium 40 mg PO QHS 06/05/19 01/22/20 Unknown busPIRone [Buspar] 10 mg PO BID 06/05/19 01/22/20 Unknown levETIRAcetam [Keppra TAB] 500 mg PO BID 06/05/19 01/22/20 Unknown Previous Rx's Medication Instructions Recorded Last Taken Type Clopidogrel [Plavix] 75 mg PO DAILY #30 tablet 05/10/19 Unknown Rx Allergies/Adverse Reactions: Allergies Allergy/AdvReac Type Severity Reaction Status Date / Time metoclopramide [From Reglan] Allergy Anaphylaxis Verified 05/08/19 16:45 prochlorperazine Allergy Anaphylaxis Verified 05/08/19 16:45 [From Compazine] promethazine [From Phenergan] Allergy Anaphylaxis Verified 05/08/19 16:45 ED Review of Systems ROS: Stated complaint: LEFT SIDE NUMBNESS Other details as noted in HPI ED Past Medical Hx - Past Medical History Hx Hypertension: Yes Hx CVA: Yes (left sided weakness) Hx Heart Attack/AMI: Yes Hx Congestive Heart Failure: Yes Hx Diabetes: Yes Hx Seizures: Yes Hx Psychiatric Treatment: Yes (PTSD,depression) Hx Asthma: Yes Hx COPD: Yes Hx HIV: Yes Additional medical history: Cerebral palsy - Surgical History Additional Surgical History: CABG - Social History Smoking Status: Current Every Day Smoker - Medications Home Medications: Home Medications Medication Instructions Recorded Confirmed Last Taken Type Clopidogrel [Plavix] 75 mg PO DAILY #30 tablet 05/10/19 01/22/20 Unknown Rx ARIPiprazole [Abilify TAB] 15 mg PO DAILY 06/05/19 01/22/20 Unknown History Albuterol Mdi (or & Nicu Only) 2 puff IH Q4H PRN 06/05/19 01/22/20 Unknown History [ProAir HFA Inhaler] Aspirin [Adult Aspirin] 81 mg PO DAILY 06/05/19 01/22/20 Unknown History Doxepin [SINEquan] 100 mg PO QHS 06/05/19 01/22/20 Unknown History Fluticasone/Salmeterol(Nf) [Advair 2 puff IH BID 06/05/19 01/22/20 Unknown History HFA 230-21 mcg] Furosemide [Lasix TAB] 40 mg PO QDAY 06/05/19 01/22/20 Unknown History Insulin NPH Hum/Reg Insulin Hm 30 units SUB-Q QHS 06/05/19 01/22/20 Unknown History [Novolin 70-30 Flexpen] Insulin NPH/Regular [NovoLIN 70/30] 20 units SUB-Q QAM 06/05/19 01/22/20 Unknown History Ipratropium/Albuterol Sulfate 1 spray IH QID 06/05/19 01/22/20 Unknown History [Combivent Respimat] Metoprolol [Lopressor TAB] 100 mg PO BID 06/05/19 01/22/20 Unknown History Mirtazapine [Remeron 15mg TAB] 15 mg PO QHS 06/05/19 01/22/20 Unknown History Oxycodone HCl/Acetaminophen 1 each PO Q6HR PRN 06/05/19 01/22/20 Unknown History [Percocet 10/325 mg] Phenytoin [Dilantin] 300 mg PO QHS 06/05/19 01/22/20 Unknown History Potassium Chloride [K-Dur] 20 meq PO QDAY 06/05/19 01/22/20 Unknown History Rosuvastatin Calcium 40 mg PO QHS 06/05/19 01/22/20 Unknown History busPIRone [Buspar] 10 mg PO BID 06/05/19 01/22/20 Unknown History levETIRAcetam [Keppra TAB] 500 mg PO BID 06/05/19 01/22/20 Unknown History ED Neuro Physical Exam - General Limitations: Physical Limitation Suspected Stroke: Yes - NIHSS Assessment Interval: Baseline 1a. Level of Consciousness: alert/keenly responsive 1b. LOC Questions: answers no questions correctly 1c. LOC Commands: performs tasks correctly 2. Best Gaze: partial gaze palsy 3. Visual: no visual loss 4. Facial Palsy: minor paralysis 5b. Motor Arm Right: no drift 5a. Motor Arm Left: no movement 6a. Motor Leg Left: some gravity effort 6b. Motor Leg Right: no drift 7. Limb Ataxia: absent 8. Sensory: severe/total sensory loss 9. Best Language: no aphasia 10. Dysarthria: normal 11. Extinction/Inattention: no abnormality Total Score: 12 Stroke Severity: Moderate Stroke - Lab Data Lab Results 04/12/20 Range/Units 20:12 POC Glucose 189 H (70-105) Critical care attestation.: If time is entered above; I have spent that time in minutes in the direct care of this critically ill patient, excluding procedure time. ED Disposition Clinical Impression: CVA (cerebral vascular accident) Disposition: -09 OP ADMIT IP TO THIS HOSP Is pt being admited?: Yes Condition: Stable
--- NOTE | 2020-04-12 20:18 | Emergency Department Report ---
ED Neuro Deficit HPI - General Chief Complaint: Neuro Symptoms/Deficit Stated Complaint: LEFT SIDE NUMBNESS Time Seen by Provider: 04/12/20 20:14 Source: patient Mode of arrival: Ambulatory Limitations: Physical Limitation - History of Present Illness Initial Comments: Mr. Barroso is 54 years old male with history of HIV, CVA, CP, SLE, CAD S/P CABG, NE, Cardiomyopathy, DM, PTSD, Depression, HTN, Asthma, Chronic Pain Syndrome, COPD, Nicotine Dependence presents to ED for evaluation of possible stroke. Patient stated that he went to sleep around 1 PM today and he woke up around 7 PM with left upper and lower extremity weakness. Stroke protocol immediately initiated and patient immediately moved to CT for stat CT brain without contrast. Stroke telemetry neurologist immediately consulted and Dr. Hendrix examined the patient through video conference. CT brain is negative for acute finding. Patient is not a TPA candidate because patient presented more than 4.5 hours of last known well time. Patient moved to CT scanner again for stat CTA brain and neck to rule out any large occlusive vessels stroke. - Related Data Home Medications: Home Medications Medication Instructions Recorded Confirmed Last Taken ARIPiprazole [Abilify TAB] 15 mg PO DAILY 06/05/19 01/22/20 Unknown Albuterol Mdi (or & Nicu Only) 2 puff IH Q4H PRN 06/05/19 01/22/20 Unknown [ProAir HFA Inhaler] Aspirin [Adult Aspirin] 81 mg PO DAILY 06/05/19 01/22/20 Unknown Doxepin [SINEquan] 100 mg PO QHS 06/05/19 01/22/20 Unknown Fluticasone/Salmeterol(Nf) [Advair 2 puff IH BID 06/05/19 01/22/20 Unknown HFA 230-21 mcg] Furosemide [Lasix TAB] 40 mg PO QDAY 06/05/19 01/22/20 Unknown Insulin NPH Hum/Reg Insulin Hm 30 units SUB-Q QHS 06/05/19 01/22/20 Unknown [Novolin 70-30 Flexpen] Insulin NPH/Regular [NovoLIN 70/30] 20 units SUB-Q QAM 06/05/19 01/22/20 Unknown Ipratropium/Albuterol Sulfate 1 spray IH QID 06/05/19 01/22/20 Unknown [Combivent Respimat] Metoprolol [Lopressor TAB] 100 mg PO BID 06/05/19 01/22/20 Unknown Mirtazapine [Remeron 15mg TAB] 15 mg PO QHS 06/05/19 01/22/20 Unknown Oxycodone HCl/Acetaminophen 1 each PO Q6HR PRN 06/05/19 01/22/20 Unknown [Percocet 10/325 mg] Phenytoin [Dilantin] 300 mg PO QHS 06/05/19 01/22/20 Unknown Potassium Chloride [K-Dur] 20 meq PO QDAY 06/05/19 01/22/20 Unknown Rosuvastatin Calcium 40 mg PO QHS 06/05/19 01/22/20 Unknown busPIRone [Buspar] 10 mg PO BID 06/05/19 01/22/20 Unknown levETIRAcetam [Keppra TAB] 500 mg PO BID 06/05/19 01/22/20 Unknown Previous Rx's Medication Instructions Recorded Last Taken Type Clopidogrel [Plavix] 75 mg PO DAILY #30 tablet 05/10/19 Unknown Rx Allergies/Adverse Reactions: Allergies Allergy/AdvReac Type Severity Reaction Status Date / Time metoclopramide [From Reglan] Allergy Anaphylaxis Verified 05/08/19 16:45 prochlorperazine Allergy Anaphylaxis Verified 05/08/19 16:45 [From Compazine] promethazine [From Phenergan] Allergy Anaphylaxis Verified 05/08/19 16:45 ED Review of Systems ROS: Stated complaint: LEFT SIDE NUMBNESS Other details as noted in HPI Comment: All other systems reviewed and negative Constitutional: denies: chills, fever Respiratory: denies: cough, shortness of breath, SOB with exertion, wheezing Cardiovascular: denies: chest pain, palpitations Gastrointestinal: denies: abdominal pain, nausea, vomiting Musculoskeletal: denies: back pain Neurological: weakness, numbness. denies: headache, paresthesias, confusion, abnormal gait ED Past Medical Hx - Past Medical History Hx Hypertension: Yes Hx CVA: Yes (left sided weakness) Hx Heart Attack/AMI: Yes Hx Congestive Heart Failure: Yes Hx Diabetes: Yes Hx Seizures: Yes Hx Psychiatric Treatment: Yes (PTSD,depression) Hx Asthma: Yes Hx COPD: Yes Hx HIV: Yes Additional medical history: Cerebral palsy - Surgical History Additional Surgical History: CABG - Social History Smoking Status: Current Every Day Smoker - Medications Home Medications: Home Medications Medication Instructions Recorded Confirmed Last Taken Type Clopidogrel [Plavix] 75 mg PO DAILY #30 tablet 05/10/19 01/22/20 Unknown Rx ARIPiprazole [Abilify TAB] 15 mg PO DAILY 06/05/19 01/22/20 Unknown History Albuterol Mdi (or & Nicu Only) 2 puff IH Q4H PRN 06/05/19 01/22/20 Unknown Hist ory [ProAir HFA Inhaler] Aspirin [Adult Aspirin] 81 mg PO DAILY 06/05/19 01/22/20 Unknown History Doxepin [SINEquan] 100 mg PO QHS 06/05/19 01/22/20 Unknown History Fluticasone/Salmeterol(Nf) [Advair 2 puff IH BID 06/05/19 01/22/20 Unknown History HFA 230-21 mcg] Furosemide [Lasix TAB] 40 mg PO QDAY 06/05/19 01/22/20 Unknown History Insulin NPH Hum/Reg Insulin Hm 30 units SUB-Q QHS 06/05/19 01/22/20 Unknown History [Novolin 70-30 Flexpen] Insulin NPH/Regular [NovoLIN 70/30] 20 units SUB-Q QAM 06/05/19 01/22/20 Unknown History Ipratropium/Albuterol Sulfate 1 spray IH QID 06/05/19 01/22/20 Unknown History [Combivent Respimat] Metoprolol [Lopressor TAB] 100 mg PO BID 06/05/19 01/22/20 Unknown History Mirtazapine [Remeron 15mg TAB] 15 mg PO QHS 06/05/19 01/22/20 Unknown History Oxycodone HCl/Acetaminophen 1 each PO Q6HR PRN 06/05/19 01/22/20 Unknown History [Percocet 10/325 mg] Phenytoin [Dilantin] 300 mg PO QHS 06/05/19 01/22/20 Unknown History Potassium Chloride [K-Dur] 20 meq PO QDAY 06/05/19 01/22/20 Unknown History Rosuvastatin Calcium 40 mg PO QHS 06/05/19 01/22/20 Unknown History busPIRone [Buspar] 10 mg PO BID 06/05/19 01/22/20 Unknown History levETIRAcetam [Keppra TAB] 500 mg PO BID 06/05/19 01/22/20 Unknown History ED Neuro Physical Exam - General Limitations: Physical Limitation General appearance: alert, in no apparent distress Suspected Stroke: Yes - Head Head exam: Present: atraumatic, normocephalic, normal inspection - Eye Eye exam: Present: normal appearance - ENT ENT exam: Present: normal exam, normal orophraynx, mucous membranes moist - Neck Neck exam: Present: normal inspection, full ROM. Absent: tenderness, meningismus, lymphadenopathy, thyromegaly - Respiratory Respiratory exam: Present: normal lung sounds bilaterally - Cardiovascular Cardiovascular Exam: Present: regular rate, normal rhythm, normal heart sounds - GI/Abdominal GI/Abdominal exam: Present: soft, normal bowel sounds. Absent: distended, tenderness, guarding, rebound, rigid, organomegaly, mass, bruit, pulsatile mass, hernia - Extremities Exam Extremities exam: Present: normal inspection, full ROM, normal capillary refill. Absent: tenderness, pedal edema, calf tenderness - Back Exam Back exam: Present: normal inspection, full ROM. Absent: CVA tenderness (R), CVA tenderness (L) - Neurological Exam Neurological exam: Present: alert, oriented X3 - NIHSS Assessment Interval: Baseline 1a. Level of Consciousness: alert/keenly responsive 1b. LOC Questions: answers both correctly 1c. LOC Commands: performs tasks correctly 2. Best Gaze: normal 3. Visual: no visual loss 4. Facial Palsy: minor paralysis 5b. Motor Arm Right: no drift 5a. Motor Arm Left: no gravity effort 6a. Motor Leg Left: some gravity effort 6b. Motor Leg Right: no drift 7. Limb Ataxia: absent 8. Sensory: severe/total sensory loss 9. Best Language: no aphasia 10. Dysarthria: normal 11. Extinction/Inattention: no abnormality Total Score: 8 Stroke Severity: Moderate Stroke - Psychiatric Psychiatric exam: Present: normal mood - Skin Skin exam: Present: warm, intact, normal color ED Course Vital Signs 04/12/20 04/12/20 19:56 21:05 Temperature 98.1 F 98.6 F Pulse Rate 128 H 114 H Respiratory 28 H 19 Rate Blood Pressure 151/92 Blood Pressure 129/92 [Left] O2 Sat by Pulse 96 100 Oximetry - EJ/Peripheral Line Arm R Time Out Performed: Yes Indications: nurses unable to establis Skin Cleansed in Sterile Fashion: Yes Size: 18 Dressing Placed: Tegaderm, tape Patient Tolerated Procedure: well, no complications Additional Comments: Ultrasound-guided. - Lab Data Result diagrams: 04/12/20 20:56 04/12/20 20:56 Lab Results 04/12/20 04/12/20 04/12/20 Range/Units 20:12 20:56 20:56 WBC 3.7 L (4.5-11.0) K/mm3 RBC 4.49 (3.65-5.03) M/mm3 Hgb 14.2 (11.8-15.2) gm/dl Hct 41.6 (35.5-45.6) % MCV 93 (84-94) fl MCH 32 (28-32) pg MCHC 34 (32-34) % RDW 12.6 L (13.2-15.2) % Plt Count 189 (140-440) K/mm3 Lymph % (Auto) 42.3 H (13.4-35.0) % [place] % (Auto) 10.7 H (0.0-7.3) % Eos % (Auto) 1.4 (0.0-4.3) % Baso % (Auto) 0.7 (0.0-1.8) % Lymph # 1.6 (1.2-5.4) K/mm3 [place] # 0.4 (0.0-0.8) K/mm3 Eos # 0.1 (0.0-0.4) K/mm3 Baso # 0.0 (0.0-0.1) K/mm3 Seg Neutrophils % 44.9 (40.0-70.0) % Seg Neutrophils # 1.6 L (1.8-7.7) K/mm3 PT 13.2 (12.2-14.9) Sec. INR 1.02 (0.87-1.13) APTT 28.4 (24.2-36.6) Sec. Thrombin Time (15.1-19.6) Sec. Sodium (137-145) mmol/L Potassium (3.6-5.0) mmol/L Chloride (98-107) mmol/L Carbon Dioxide (22-30) mmol/L Anion Gap mmol/L BUN (9-20) mg/dL Creatinine (0.8-1.5) mg/dL Estimated GFR ml/min BUN/Creatinine Ratio % Glucose (75-100) mg/dL POC Glucose 189 H (70-105) Calcium (8.4-10.2) mg/dL Troponin T (0.00-0.029) ng/mL 04/12/20 04/12/20 Range/Units 20:56 20:56 WBC (4.5-11.0) K/mm3 RBC (3.65-5.03) M/mm3 Hgb (11.8-15.2) gm/dl Hct (35.5-45.6) % MCV (84-94) fl MCH (28-32) pg MCHC (32-34) % RDW (13.2-15.2) % Plt Count (140-440) K/mm3 Lymph % (Auto) (13.4-35.0) % [place] % (Auto) (0.0-7.3) % Eos % (Auto) (0.0-4.3) % Baso % (Auto) (0.0-1.8) % Lymph # (1.2-5.4) K/mm3 [place] # (0.0-0.8) K/mm3 Eos # (0.0-0.4) K/mm3 Baso # (0.0-0.1) K/mm3 Seg Neutrophils % (40.0-70.0) % Seg Neutrophils # (1.8-7.7) K/mm3 PT (12.2-14.9) Sec. INR (0.87-1.13) APTT (24.2-36.6) Sec. Thrombin Time 19.5 (15.1-19.6) Sec. Sodium 136 L (137-145) mmol/L Potassium 4.1 (3.6-5.0) mmol/L Chloride 101.1 (98-107) mmol/L Carbon Dioxide 23 (22-30) mmol/L Anion Gap 16 mmol/L BUN 16 (9-20) mg/dL Creatinine 1.0 (0.8-1.5) mg/dL Estimated GFR > 60 ml/min BUN/Creatinine Ratio 16 % Glucose 193 H (75-100) mg/dL POC Glucose (70-105) Calcium 8.9 (8.4-10.2) mg/dL Troponin T < 0.010 (0.00-0.029) ng/mL - EKG Data -: EKG Interpreted by Me EKG shows normal: sinus rhythm Rate: tachycardia Interpretation: no acute changes - Radiology Data Radiology results: report reviewed - Medical Decision Making Mr. Barroso is 54 years old male with history of HIV, CVA, CP, SLE, CAD S/P CABG, NE, Cardiomyopathy, DM, PTSD, Depression, HTN, Asthma, Chronic Pain Syndrome, COPD, Nicotine Dependence presents to ED for evaluation of possible stroke. Patient stated that he went to sleep around 1 PM today and he woke up around 7 PM with left upper and lower extremity weakness. Stroke protocol immediately initiated and patient immediately moved to CT for stat CT brain without contrast. Stroke telemetry neurologist immediately consul sung and Dr. Hendrix examined the patient through video conference. CT brain is negative for acute finding. Patient is not a TPA candidate because patient presented more than 4.5 hours of last known well time. Patient moved to CT scanner again for stat CTA brain and neck to rule out any large occlusive vessels stroke. CTA neck and brain is negative for large vessels occlusion or stenosis. I discussed the patient with Dr. Waggoner, he agreed to admit the patient to medical service for stroke work-up and further management. Critical Care Time: Yes Critical care time in (mins) excluding proc time.: 30 Critical care attestation.: If time is entered above; I have spent that time in minutes in the direct care of this critically ill patient, excluding procedure time. ED Disposition Clinical Impression: CVA (cerebral vascular accident) Disposition: DC-[id number] OP ADMIT IP TO THIS HOSP Is pt being admited?: Yes Condition: Stable Referrals: PRIMARY CARE,MD [Primary Care Provider] - 3-5 Days
--- NOTE | 2020-04-12 20:34 | Cat Scan Report ---
CT head/brain wo con INDICATION / CLINICAL INFORMATION: 54 years Male; neuro deficits <6hrs or sx present upon awakening. TECHNIQUE: Routine CT head without contrast. All CT scans at this location are performed using CT dos e reduction for ALARA by means of automated exposure control. COMPARISON: The study is compared to the previous CT of 01/21/2020. FINDINGS: BRAIN / INTRACRANIAL CONTENTS: There is continued relative atrophy of the right cerebral hemisphere w ith associated prominence of the right lateral ventricle. Additionally, there is prominence of the CS F attenuation along the right cerebral convexity in the above findings may be developmental. However, there is a persistent bony a defect along the right lateral calvarium as above the findings may be r elated to previous traumatic or ischemic process and correlation would be needed. Similar findings ar e seen on the prior exam. There otherwise appears be mild cerebral white matter disease most consistent with microvascular vida opathy. The ventricular system is unchanged in size and configuration. There is no clear CT evidence of acute intracranial hemorrhage or significant mass effect. ORBITS: No significant abnormality of visualized orbits. SINUSES / MASTOIDS: No significant abnormality in the visualized paranasal sinuses or mastoid air miracle ls. CRANIOCERVICAL JUNCTION: No significant abnormality. ADDITIONAL FINDINGS: None. IMPRESSION: 1. There are continued atrophic changes of the right cerebral hemisphere as detailed above which mimi elates with the previous CT of 01/21/2020. 2. There is no CT evidence of acute intracranial hemorrhage. Signer Name: Juan Truong MD Signed: 04/12/2020 8:29 PM Workstation Name: [id number]
[2020-04-12 21:04] LABS: Basophils % (Auto) 0.7 % (0.0-1.8); Eosinophils # (Auto) 0.1 K/mm3 (0.0-0.4); Eosinophils % (Auto) 1.4 % (0.0-4.3); Hematocrit 41.6 % (35.5-45.6); Hemoglobin 14.2 gm/dl (11.8-15.2); Lymphocytes # (Auto) 1.6 K/mm3 (1.2-5.4); Lymphocytes % (Auto) 42.3 % (13.4-35.0); Mean Corpuscular HGB Conc 34 % (32-34); Mean Corpuscular Volume 93 fl (84-94); Monocytes # (Auto) 0.4 K/mm3 (0.0-0.8); Monocytes % (Auto) 10.7 % (0.0-7.3); Platelet Count 189 K/mm3 (140-440); Red Blood Count 4.49 M/mm3 (3.65-5.03); Red Cell Distribution Width 12.6 % (13.2-15.2)
[2020-04-12 21:14] LABS: INR 1.02 (0.87-1.13)
[2020-04-12 21:15] LABS: Partial Thromboplastin Time 28.4 Sec. (24.2-36.6)
[2020-04-12 21:17] LABS: BUN/Creatinine Ratio 16; Blood Urea Nitrogen 16 mg/dL (9-20); Calcium 8.9 mg/dL (8.4-10.2); Hemolysis Index 13
--- NOTE | 2020-04-12 21:59 | Cat Scan Report ---
. CT angio head INDICATION / CLINICAL INFORMATION: 54 years Male; MAIN. TECHNIQUE: Thin cut axial images obtained through the head during IV bolus contrast administration. S agittal, coronal, and 3 plane MIP reconstructions performed by the technologist. NASCET type criteria used evaluate stenoses. Automated exposure control utilized for radiation reduction purposes. COMPARISON: The study is compared to the most recent of multiple previous CTA exams dated 01/21/2020. FINDINGS: INTERNAL CAROTID ARTERIES: The distal internal carotid arteries demonstrate appropriate caliber witho ut significant developing stenosis by NASCET criteria from the previous CTA. VERTEBROBASILAR SYSTEM: The vertebral basilar system also demonstrate appropriate caliber without dev eloping focal stenosis. CEREBRAL ARTERIES: There is no evidence of significant stenosis involving the proximal cerebral arter ies or of large vessel occlusion. ANEURYSM: None identified. ADDITIONAL FINDINGS: There is opacification of the dural venous sinuses there appears to be relative developmental hypoplasia of the right transverse and sigmoid sinuses. IMPRESSION: There is no CTA evidence of developing significant focal stenosis involving the intracranial vessels. Signer Name: Juan Truong MD Signed: 04/12/2020 9:54 PM Workstation Name: [id number]
--- NOTE | 2020-04-12 22:20 | Cat Scan Report ---
CT angio neck INDICATION / CLINICAL INFORMATION: 54 years Male; stroke. TECHNIQUE: Thin cut axial images obtained through the head during IV bolus contrast administration. S agittal, coronal, and 3 plane MIP reconstructions performed by the technologist. NASCET type criteria used evaluate stenoses. All CT scans at this location are performed using CT dose reduction for ALAR A by means of automated exposure control. COMPARISON: The study is compared to the most recent CTA neck of 01/21/2020. FINDINGS: CAROTID ARTERIES: There is very mild calcified plaque involving proximal internal carotid arteries wi thout significant developing stenosis by NASCET criteria from the previous CTA. VERTEBRAL ARTERIES: The motion and beam hardening degrade the image quality. However, there is also n o CTA evidence of significant developing stenosis involving the vertebral arteries. ARCH: The arch vessels are unremarkable without developing focal stenosis. ADDITIONAL FINDINGS: Remainder of the surrounding soft tissues are grossly normal. IMPRESSION: There is no significant developing stenosis involving the carotid or vertebral arteries by NASCET cr iteria. Signer Name: Juan Truong MD Signed: 04/12/2020 10:16 PM Workstation Name: [id number]
[2020-04-13] MEDS ORDERED: DEXTROSE 50% IN WATER (25GM) 50 ML SYRINGE IV PRN (00:41)
[2020-04-13] MEDS: INSULIN REGULAR, HUMAN 100 UNITS/1 ML SUB-Q SCH ×5 (06:08→22:09)
--- NOTE | 2020-04-13 06:31 | History and Physical Report ---
History of Present Illness Date of examination: 04/12/20 Date of admission: 04/12/20 22:55 Chief complaint: Chief complaint is weakness on the left side of the body History of present illness: History of presenting illness, patient is a 54-year-old male who said he started sleeping at about 1:00 yesterday and woke up 6 hours later with weakness on the left side of the body more than his baseline weakness which he sustained from old stroke. There was also speech impairment, patient denied history of dizziness, headache, change in mental status, chest pain, shortness of breath, nausea or vomiting, there is no history of fever. Past History Past Medical History: CAD, COPD, diabetes, hypertension, seizures, stroke, other (HIV INFECTION, PTSD, DEPRESSION, CEREBRAL PALSY) Past Surgical History: CABG Social history: , smoking Family history: no significant family history Medications and Allergies Allergies Allergy/AdvReac Type Severity Reaction Status Date / Time metoclopramide [From Reglan] Allergy Anaphylaxis Verified 05/08/19 16:45 prochlorperazine Allergy Anaphylaxis Verified 05/08/19 16:45 [From Compazine] promethazine [From Phenergan] Allergy Anaphylaxis Verified 05/08/19 16:45 Home Medications Medication Instructions Recorded Confirmed Last Taken Type Clopidogrel [Plavix] 75 mg PO DAILY #30 tablet 05/10/19 01/22/20 Unknown Rx ARIPiprazole [Abilify TAB] 15 mg PO DAILY 06/05/19 01/22/20 Unknown History Albuterol Mdi (or & Nicu Only) 2 puff IH Q4H PRN 06/05/19 01/22/20 Unknown History [ProAir HFA Inhaler] Aspirin [Adult Aspirin] 81 mg PO DAILY 06/05/19 01/22/20 Unknown History Doxepin [SINEquan] 100 mg PO QHS 06/05/19 01/22/20 Unknown History Fluticasone/Salmeterol(Nf) [Advair 2 puff IH BID 06/05/19 01/22/20 Unknown History HFA 230-21 mcg] Furosemide [Lasix TAB] 40 mg PO QDAY 06/05/19 01/22/20 Unknown History Insulin NPH Hum/Reg Insulin Hm 30 units SUB-Q QHS 06/05/19 01/22/20 Unknown Hist ory [Novolin 70-30 Flexpen] Insulin NPH/Regular [NovoLIN 70/30] 20 units SUB-Q QAM 06/05/19 01/22/20 Unknown History Ipratropium/Albuterol Sulfate 1 spray IH QID 06/05/19 01/22/20 Unknown History [Combivent Respimat] Metoprolol [Lopressor TAB] 100 mg PO BID 06/05/19 01/22/20 Unknown History Mirtazapine [Remeron 15mg TAB] 15 mg PO QHS 06/05/19 01/22/20 Unknown History Oxycodone HCl/Acetaminophen 1 each PO Q6HR PRN 06/05/19 01/22/20 Unknown History [Percocet 10/325 mg] Phenytoin [Dilantin] 300 mg PO QHS 06/05/19 01/22/20 Unknown History Potassium Chloride [K-Dur] 20 meq PO QDAY 06/05/19 01/22/20 Unknown History Rosuvastatin Calcium 40 mg PO QHS 06/05/19 01/22/20 Unknown History busPIRone [Buspar] 10 mg PO BID 06/05/19 01/22/20 Unknown History levETIRAcetam [Keppra TAB] 500 mg PO BID 06/05/19 01/22/20 Unknown History Active Meds: Active Medications Aspirin (Aspirin) 325 mg PO QDAY DEBRA Dextrose (D50w (25gm) Syringe) 0 ml IV Q30MIN PRN; Protocol PRN Reason: Hypoglycemia Insulin Human Regular (Humulin R) 0 units SUB-Q Q4H DEBRA; Protocol Last Admin: 04/13/20 06:08 Dose: Not Given Documented by: Review of Systems Constitutional: weakness, no weight loss, no weight gain, no fever, no chills, no sweats, no anorexia, no malaise, no chronic pain Eyes: bilateral: other (NO BILATERAL EYE SYMPTOM) Ears, nose, mouth and throat: no ear pain, no ear discharge, no tinnitis, no decreased hearing, no nose pain, no nasal congestion, no nasal discharge, no dental pain, no mouth pain, no dysphagia, no hoarseness, no sore throat, no swelling in mouth, no post-nasal drip, no headache, no vertigo, no pain front of neck Cardiovascular: high blood pressure, no chest pain, no orthopnea, no palpitations, no rapid/irregular heart beat, no edema, no syncope, no lightheadedness Respiratory: no cough, no cough with sputum, no excessive sputum, no hemoptysis, no shortness of breath, no dyspnea on exertion, no wheezing, no pleurisy, no pain, no pain on inspiration, no respiratory infections, no home oxygen, no other Gastrointestinal: no nausea, no vomiting, no diarrhea, no constipation, no change in bowel habits, no hematemesis, no coffee ground emesis, no melena, no hematochezia, no loss of appetite, no early satiety, no heartburn, no indigestion, no belching, no jaundice, no dyspepsia/bloating Genitourinary Male: no dysuria, no hematuria, no flank pain, no discharge, no urinary frequency, no urinary hesitancy, no nocturia, no incontinence, no erectile dysfunction, no genital pain, no decreased libido, no testicular pain, no testicular lump, no difficulties fathering child Rectal: no pain, no itching Musculoskeletal: muscle weakness, no neck stiffness, no neck pain, no shooting arm pain, no arm numbness/tingling, no low back pain, no shooting leg pain, no leg numbness/tingling, no redness of joints, no muscle cramps, no myalgias, no atrophy, no limitation of motion, no fractures, no loss of height Integumentary: no rash, no pruritis, no redness, no sores, no wounds, no jaundice, no lesions, no darkening of skin, no depigmentation, no striae Neurological: paralysis, weakness, numbness, change in speech, no parathesias, no tingling, no seizures, no syncope, no tremors, no vertigo, no headaches, no migraines, no convulsions, no aphasia, no change in mentation, no confusion, no memory loss, no double vision, no loss of vision Psychiatric: no anxiety, no memory loss, no change in sleep habits, no sleep disturbances, no insomnia, no hypersomnia, no change in appetite, no change in libido, no suicidal ideation, no disorientation, no depression, no hopelessness, no anhedonia, no anxiety attacks, no difficulties concentrating, no confusion Endocrine: no heat intolerance, no polyphagia, no excessive thirst, no polydipsia, no polyuria, no nocturia, no excessive sweating, no thyroid mass, no palpatations, no high blood sugars, no low blood sugars Hematologic/Lymphatic: no easy bruising, no easy bleeding, no lymphadenopathy, no lymphedema Allergic/Immunologic: no persistent infections, no anaphylaxis, no angioedema Exam - Constitutional Vitals: Temp Pulse Resp BP Pulse Ox 98.6 F 114 H 19 129/92 100 04/12/20 21:05 04/12/20 21:05 04/12/20 21:05 04/12/20 21:05 04/12/20 21:05 General appearance: Present: no acute distress - EENT Eyes: Present: PERRL, EOM intact ENT: hearing intact, clear oral mucosa - Neck Neck: Present: supple, normal ROM. Absent: enlarged thyroid, carotid bruits - Respiratory Respiratory effort: normal - Cardiovascular Rhythm: regular Heart Sounds: Present: S1 & S2. Absent: gallop, systolic murmur, diastolic murmur, rub, click - Extremities Extremities: no ischemia, No edema Peripheral Pulses: within normal limits - Abdominal General gastrointestinal: Present: soft, non-distended. Absent: tender, distended, hepatomegaly, splenomegaly Male genitourinary: Present: deferred - Rectal Rectal Exam: deferred - Integumentary Integumentary: Present: clear, warm, dry - Musculoskeletal Musculoskeletal: left sided weakness - Psychiatric Psychiatric: appropriate mood/affect HEART Score - HEART Score Troponin: Troponin T < 0.010 ng/mL (0.00-0.029) 04/12/20 20:56 Results - Labs CBC & Chem 7: 04/12/20 20:56 04/12/20 20:56 Labs: Laboratory Last Values WBC 3.7 K/mm3 (4.5-11.0) L 04/12/20 20:56 RBC 4.49 M/mm3 (3.65-5.03) 04/12/20 20:56 Hgb 14.2 gm/dl (11.8-15.2) 04/12/20 20:56 Hct 41.6 % (35.5-45.6) 04/12/20 20:56 MCV 93 fl (84-94) 04/12/20 20:56 MCH 32 pg (28-32) 04/12/20 20:56 MCHC 34 % (32-34) 04/12/20 20:56 RDW 12.6 % (13.2-15.2) L 04/12/20 20:56 Plt Count 189 K/mm3 (140-440) 04/12/20 20:56 Lymph % (Auto) 42.3 % (13.4-35.0) H 04/12/20 20:56 [place] % (Auto) 10.7 % (0.0-7.3) H 04/12/20 20:56 Eos % (Auto) 1.4 % (0.0-4.3) 04/12/20 20:56 Baso % (Auto) 0.7 % (0.0-1.8) 04/12/20 20:56 Lymph # 1.6 K/mm3 (1.2-5.4) 04/12/20 20:56 [place] # 0.4 K/mm3 (0.0-0.8) 04/12/20 20:56 Eos # 0.1 K/mm3 (0.0-0.4) 04/12/20 20:56 Baso # 0.0 K/mm3 (0.0-0.1) 04/12/20 20:56 Seg Neutrophils % 44.9 % (40.0-70.0) 04/12/20 20:56 Seg Neutrophils # 1.6 K/mm3 (1.8-7.7) L 04/12/20 20:56 PT 13.2 Sec. (12.2-14.9) 04/12/20 20:56 INR 1.02 (0.87-1.13) 04/12/20 20:56 APTT 28.4 Sec. (24.2-36.6) 04/12/20 20:56 Thrombin Time 19.5 Sec. (15.1-19.6) 04/12/20 20:56 Sodium 136 mmol/L (137-145) L 04/12/20 20:56 Potassium 4.1 mmol/L (3.6-5.0) 04/12/20 20:56 Chloride 101.1 mmol/L (98-107) 04/12/20 20:56 Carbon Dioxide 23 mmol/L (22-30) 04/12/20 20:56 Anion Gap 16 mmol/L 07/13/20 20:56 BUN 16 mg/dL (9-20) 04/12/20 20:56 Creatinine 1.0 mg/dL (0.8-1.5) 04/12/20 20:56 Estimated GFR > 60 ml/min 04/12/20 20:56 BUN/Creatinine Ratio 16 % 04/12/20 20:56 Glucose 193 mg/dL (75-100) H 04/12/20 20:56 POC Glucose 87 (70-105) 04/13/20 05:53 Calcium 8.9 mg/dL (8.4-10.2) 04/12/20 20:56 Troponin T < 0.010 ng/mL (0.00-0.029) 04/12/20 20:56 Iyer/IV: IV Catheter Type [Right Peripheral IV Antecubital] IV Catheter Type [Left Upper INT / Saline Lock arm] Assessment and Plan - Patient Problems (1) Acute CVA (cerebrovascular accident) Current Visit: No Status: Acute Plan to address problem: 1 MRI BRAIN WITHOUT CONTRAST 2. 2 ECHO CARDIOGRAM 3. NEUROLOGY CONSULT 4. PHYSICAL THERSPY CONSULT 5. SPEECH THERAPY CONSULT 6. ASPIRIN PO 7. ATORVASTATIN PO 8. NPO AND SWALLOW STUDY
[2020-04-13] MEDS: ASPIRIN 325 MG TAB PO SCH (11:18)
[2020-04-13 14:34] LABS: Chol/HDL Ratio 5.06 %
--- NOTE | 2020-04-13 15:59 | Consultation ---
History of Present Illness Consult date: 04/13/20 Reason for Consult: Increased left sided weakness Chief complaint: Increased left sided weakness History of present illness: Patient is a 54 y/o man w/ a h/o cerebral palsy, h/o seizures, h/o CVA w/ residual left sided weakness, DM, HTN, PTSD, COPD, HIV, CHF, CAD s/p CABG, depression, asthma, HLD. Patient presented yesterday with increased left sided weakness, which began yesterday at about 5pm, when he awoke from a nap. Patient was brought to [facility] or further evaluation. For seizures he takes keppra 500mg BID and phenytoin 300mg QHS. He states that Lt. sided weakness has persisted since yesterday, and has not had much improvement. Past History Past Medical History: CAD, COPD, diabetes, hypertension, seizures, stroke, other (HIV INFECTION, PTSD, DEPRESSION, CEREBRAL PALSY) Past Surgical History: CABG Social history: , smoking Family history: no significant family history Medications and Allergies Allergies Allergy/AdvReac Type Severity Reaction Status Date / Time metoclopramide [From Reglan] Allergy Anaphylaxis Verified 05/08/19 16:45 prochlorperazine Allergy Anaphylaxis Verified 05/08/19 16:45 [From Compazine] promethazine [From Phenergan] Allergy Anaphylaxis Verified 05/08/19 16:45 Home Medications Medication Instructions Recorded Confirmed Last Taken Type Clopidogrel [Plavix] 75 mg PO DAILY #30 tablet 05/10/19 04/13/20 04/12/20 Rx ARIPiprazole [Abilify TAB] 15 mg PO DAILY 06/05/19 04/13/20 Unknown History Albuterol Mdi (or & Nicu Only) 2 puff IH Q4H PRN 06/05/19 04/13/20 04/12/20 History [ProAir HFA Inhaler] Aspirin [Adult Aspirin] 81 mg PO DAILY 06/05/19 04/13/20 04/13/20 12:17 History Doxepin [SINEquan] 100 mg PO QHS 06/05/19 04/13/20 04/12/20 History Fluticasone/Salmeterol(Nf) [Advair 2 puff IH BID 06/05/19 04/13/20 04/12/20 History HFA 230-21 mcg] Furosemide [Lasix TAB] 40 mg PO QDAY 06/05/19 04/13/20 04/12/20 History Insulin NPH Hum/Reg Insulin Hm 30 units SUB-Q QHS 06/05/19 04/13/20 Unknown History [Novolin 70-30 Flexpen] Insulin NPH/Regular [NovoLIN 70/30] 20 units SUB-Q QAM 06/05/19 04/13/20 Unknown History Ipratropium/Albuterol Sulfate 1 spray IH QID 06/05/19 04/13/20 Unknown History [Combivent Respimat] Metoprolol [Lopressor TAB] 100 mg PO BID 06/05/19 04/13/20 04/12/20 History Mirtazapine [Remeron 15mg TAB] 15 mg PO QHS 06/05/19 04/13/20 04/12/20 History Oxycodone HCl/Acetaminophen 1 each PO Q6HR PRN 06/05/19 04/13/20 04/12/20 History [Percocet 10/325 mg] Phenytoin [Dilantin] 300 mg PO QHS 06/05/19 04/13/20 04/12/20 History Potassium Chloride [K-Dur] 20 meq PO QDAY 06/05/19 04/13/20 04/12/20 History Rosuvastatin Calcium 40 mg PO QHS 06/05/19 04/13/20 Unknown History busPIRone [Buspar] 10 mg PO BID 06/05/19 04/13/20 04/12/20 History levETIRAcetam [Keppra TAB] 500 mg PO BID 06/05/19 04/13/20 04/12/20 History Nucynta 75 mg PO ONCE 04/13/20 04/13/20 04/12/20 History Active Meds: Active Medications Aspirin (Aspirin) 325 mg PO QDAY [facility] Last Admin: 04/13/20 11:18 Dose: 325 mg Documented by: Atorvastatin Calcium (Lipitor) 40 mg PO QHS [facility] Last Admin: 04/13/20 13:53 Dose: 40 mg Documented by: Dextrose (D50w (25gm) Syringe) 0 ml IV Q30MIN PRN; Protocol PRN Reason: Hypoglycemia Insulin Human Regular (Humulin R) 0 units SUB-Q Q4H [facility]; Protocol Last Admin: 04/13/20 12:55 Dose: Not Given Documented by: Review of Systems All systems: negative Neurological: weakness Physical Examination - Vital Signs Vital Signs: Vital Signs Temp Pulse Resp BP Pulse Ox 98.1 F 128 H 28 H 151/92 96 04/12/20 19:56 04/12/20 19:56 04/12/20 19:56 04/12/20 19:56 04/12/20 19:56 - Physical Exam Narrative exam: Patient is alert, awake, oriented x4, follows complex commands. No dysarthria or aphasia noted. PERRL, EOMI, decreased vision in left field, tongue midline, decreased on Lt. to LT, no facial weakness noted. Decreased on Lt. to LT. 5/5 st rength in RUE/RLE, 3/5 in LUE, 2/5 in LLE. Results - Laboratory Findings CBC and BMP: 04/12/20 20:56 04/12/20 20:56 Abnormal Lab Findings: Abnormal Labs 04/12/20 04/12/20 04/12/20 20:12 20:56 20:56 WBC 3.7 L RDW 12.6 L Lymph % (Auto) 42.3 H [place] % (Auto) 10.7 H Seg Neutrophils # 1.6 L Sodium 136 L Glucose 193 H POC Glucose 189 H Triglycerides HDL Cholesterol 04/13/20 04/13/20 13:08 13:44 WBC RDW Lymph % (Auto) [place] % (Auto) Seg Neutrophils # Sodium Glucose POC Glucose 126 H Triglycerides 213 H HDL Cholesterol 33 L Assessment and Plan Patient is a 54 y/o man w/ a h/o cerebral palsy, h/o seizures, h/o CVA w/ residual left sided weakness, DM, HTN, PTSD, COPD, HIV, CHF, CAD s/p CABG, depression, asthma, HLD, who p/w increased left sided weakness. According to the patient's clinical findings it is likely that he has had recrudescence of previous stroke symptoms. Alternatively, he may have had a focal seizure causing increased left sided weakness. Plan: 1. Recrudescence of previous stroke symptoms vs. focal seizure vs. conversion disorder: - MRI brain: no acute abnormalities. Noted to have chronic hemispheric atrophy. - CT head: No acute abnormalities - CTA head/neck: no significant stenosis. - Cont. ASA and plavix, which he is taking at home. - Cont. statin. - Check UA. - Increase keppra to 750mg BID. - - Discussed with patient regarding starting keppra. Discussed risks/benefits, and patient agreed to continuing keppra. - Discussed with patient regarding no driving until cleared by DMV/DPS. Patient understood and accepted this. Further discussed seizure precautions. Also do not recommend driving until weakness has improved to the point where it is safe for him to drive. - If patient has a seizure lasting >2 minutes, recommend giving ativan 1mg IV stat. If seizure does not resolve within 2 minutes, can repeat x1. Please call primary team and neurology stat if patient has a seizure. - Recommend PT/OT - Recommend outpatient psychiatry follow up to address possible conversion disorder with h/o PTSD, depression, and patient also states he is under somewhat increased stress recently. - Will continue to monitor patient. Thank you for allowing me to take part in the care of this patient. Charli Davison MD Neurology This clinical encounter was provided via live telemedicine platform. Consultative service was provided for neurology to support local providers. The Acute Teleneurology team should be contacted with any neurologic worsening or clinical changes, new test results, or new patient history that is reported to or discovered by the local team following completion of the teleneurology consultation, specifically that which has the potential to impact the consultative recommendations. Patient/Family was informed the Neurology Consult would happen via TeleHealth consult by way of interactive audio and video telecommunications and consented to receiving care in this manner. Due to the potential for life-threatening deterioration due to underlying neurologic illness, and limited resources available for patient care, telemedicine was used as means of patient care. Telemedicine consultation is limited in the extent of physical exam that can be virtually provided. Time spent evaluating patient includes time for face to face visit via telemedicine, review of medical records, imaging studies and discussion of findings with providers, the patient and/or family.
--- NOTE | 2020-04-13 19:23 | Progress Note ---
Assessment and Plan Assessment and plan: patient is a 54-year-old male who said he started sleeping at about 1:00 yesterday and woke up 6 hours later with weakness on the left side of the body more than his baseline weakness which he sustained from old stroke. There was also speech impairment, patient denied history of dizziness, headache, change in mental status, chest pain, shortness of breath, nausea or vomiting, there is no history of fever. Patient was seen by neurology and as noted by them patient is a 54 y/o man w/ a h/o cerebral palsy, h/o seizures, h/o CVA w/ residual left sided weakness, DM, HTN, PTSD, COPD, HIV, CHF, CAD s/p CABG, depression, asthma, HLD, who p/w increased left sided weakness. According to the patient's clinical findings it is likely that he has had recrudescence of previous stroke symptoms. Alternatively, he may have had a focal seizure causing increased left sided weakness. He also has a history of syphilis. Acute CVA (cerebrovascular accident)-ruled out no evidence on current imaging study. Recrudescence of previous stroke symptoms vs. focal seizure vs. conversion diso rder: Seizures DM, HTN, PTSD, COPD, HIV, CHF, CAD s/p CABG, depression, asthma, HLD, who p/w increased left sided weaknes h/o cerebral palsy, h/o CVA w/ residual left sided weakness, Plan Renew meds. Continue supportive care - MRI brain: no acute abnormalities. Noted to have chronic hemispheric atrophy. - CT head: No acute abnormalities - CTA head/neck: no significant stenosis. - Cont. ASA and plavix, which he is taking at home. - Cont. statin. - Check UA. - Increase keppra to 750mg BID. PER NEUROLOGY - Recommend outpatient psychiatry follow up to address possible conversion diso rder with h/o PTSD, depression, and patient also states he is under somewhat increased stress recently. dISCHARGE IN AM AND RENEW MEDS. History Interval history: Patient seen and examined no new complaints at this time. According to the patient he ran out of her meds. Hospitalist Physical - Physical exam Narrative exam: VITAL SIGNS: Reviewed. GENERAL: The patient appears normally developed, Vital signs as documented. HEAD: No signs of head trauma. EYES: Pupils are equal. Extraocular motions intact. EARS: Hearing grossly intact. MOUTH: Oropharynx is normal. NECK: No adenopathy, no JVD. CHEST: Chest with clear breath sounds bilaterally. No wheezes, rales, or rhon chi. CARDIAC: Regular rate and rhythm. S1 and S2, without murmurs, gallops, or rubs. VASCULAR: No Edema. Peripheral pulses normal and equal in all extremities. ABDOMEN: Soft, non tender and non distended. No rebound or guarding, and no masses palpated. Bowel Sounds normal. MUSCULOSKELETAL: Good range of motion of all major joints. Extremities without clubbing, cyanosis or edema. NEUROLOGIC EXAM: AAOX3, No dysarthria or aphasia noted. PERRL, EOMI, decreased vision in left field, tongue midline, decreased on Lt. to LT, no facial weakness noted. Decreased on Lt. to LT. 5/5 strength in RUE/RLE, 3/5 in LUE, 2/5 in LLE. PSYCHIATRIC: Mood normal. SKIN: detial exam as documented in skin assessment - Constitutional Vitals: Temp Pulse Resp BP Pulse Ox 98.1 F 99 H 19 130/81 99 04/13/20 15:00 04/13/20 15:10 04/13/20 15:00 04/13/20 15:00 04/13/20 15:00 General appearance: Present: no acute distress HEART Score - HEART Score Troponin: Troponin T < 0.010 ng/mL (0.00-0.029) 04/12/20 20:56 Results - Labs CBC & Chem 7: 04/12/20 20:56 04/12/20 20:56 Labs: Laboratory Last Values WBC 3.7 K/mm3 (4.5-11.0) L 04/12/20 20:56 RBC 4.49 M/mm3 (3.65-5.03) 04/12/20 20:56 Hgb 14.2 gm/dl (11.8-15.2) 04/12/20 20:56 Hct 41.6 % (35.5-45.6) 04/12/20 20:56 MCV 93 fl (84-94) 04/12/20 20:56 MCH 32 pg (28-32) 04/12/20 20:56 MCHC 34 % (32-34) 04/12/20 20:56 RDW 12.6 % (13.2-15.2) L 04/12/20 20:56 Plt Count 189 K/mm3 (140-440) 04/12/20 20:56 Lymph % (Auto) 42.3 % (13.4-35.0) H 04/12/20 20:56 [place] % (Auto) 10.7 % (0.0-7.3) H 04/12/20 20:56 Eos % (Auto) 1.4 % (0.0-4.3) 04/12/20 20:56 Baso % (Auto) 0.7 % (0.0-1.8) 04/12/20 20:56 Lymph # 1.6 K/mm3 (1.2-5.4) 04/12/20 20:56 [place] # 0.4 K/mm3 (0.0-0.8) 04/12/20 20:56 Eos # 0.1 K/mm3 (0.0-0.4) 04/12/20 20:56 Baso # 0.0 K/mm3 (0.0-0.1) 04/12/20 20:56 Seg Neutrophils % 44.9 % (40.0-70.0) 04/12/20 20:56 Seg Neutrophils # 1.6 K/mm3 (1.8-7.7) L 04/12/20 20:56 PT 13.2 Sec. (12.2-14.9) 04/12/20 20:56 INR 1.02 (0.87-1.13) 04/12/20 20:56 APTT 28.4 Sec. (24.2-36.6) 04/12/20 20:56 Thrombin Time 19.5 Sec. (15.1-19.6) 04/12/20 20:56 Sodium 136 mmol/L (137-145) L 04/12/20 20:56 Potassium 4.1 mmol/L (3.6-5.0) 04/12/20 20:56 Chloride 101.1 mmol/L (98-107) 04/12/20 20:56 Carbon Dioxide 23 mmol/L (22-30) 04/12/20 20:56 Anion Gap 16 mmol/L 04/12/20 20:56 BUN 16 mg/dL (9-20) 04/12/20 20:56 Creatinine 1.0 mg/dL (0.8-1.5) 04/12/20 20:56 Estimated GFR > 60 ml/min 04/12/20 20:56 BUN/Creatinine Ratio 16 % 04/12/20 20:56 Glucose 193 mg/dL (75-100) H 04/12/20 20:56 POC Glucose 73 (70-105) 04/13/20 16:46 Calcium 8.9 mg/dL (8.4-10.2) 04/12/20 20:56 Troponin T < 0.010 ng/mL (0.00-0.029) 04/12/20 20:56 Triglycerides 213 mg/dL (2-149) H 04/13/20 13:44 Cholesterol 167 mg/dL (50-199) 04/13/20 13:44 LDL Cholesterol Direct 118 mg/dL (50-130) 04/13/20 13:44 HDL Cholesterol 33 mg/dL (40-59) L 04/13/20 13:44 Cholesterol/HDL Ratio 5.06 % 04/13/20 13:44 Iyer/IV: Voiding Method Toilet IV Catheter Type [Right Peripheral IV Antecubital] IV Catheter Type [Left Upper INT / Saline Lock arm] Active Medications - Current Medications Current Medications: Generic Name Dose Route Start Last Admin Trade Name Nasq PRN Reason Stop Dose Admin Aspirin 325 mg 04/13/20 10:00 04/13/20 11:18 Aspirin PO 325 mg QDAY DEBRA Administration Atorvastatin Calcium 40 mg 04/13/20 14:00 04/13/20 13:53 Lipitor PO 40 mg QHS DEBRA Administration Dextrose 0 ml 04/13/20 00:41 D50w (25gm) Syringe IV Q30MIN PRN Hypoglycemia Protocol Insulin Human Regular 0 units 04/13/20 01:00 04/13/20 16:41 Humulin R SUB-Q Not Given Q4H DEBRA Protocol Levetiracetam 750 mg 04/13/20 22:00 Keppra PO BID DEBRA Phenytoin 300 mg 04/13/20 22:00 Dilantin PO QHS DEBRA
[2020-04-13 21:32] LABS: Bilirubin,Urine NEG (Negative); Blood,Urine NEG (Negative); Color,Urine Yellow (Yellow); Mucus,Urine 1+ /HPF; Protein,Urine <15 mg/dL mg/dL (Negative); Urobilinogen,Urine < 2.0 mg/dL (<2.0)
[2020-04-13] MEDS ORDERED: PHENYTOIN 100 MG CAPSULE.ER PO SCH (22:00)
[2020-04-13] MEDS: levETIRAcetam 500 MG TAB PO SCH (22:36)
[2020-04-14] MEDS: INSULIN REGULAR, HUMAN 100 UNITS/1 ML SUB-Q SCH ×4 (02:54→14:26)
[2020-04-14 10:09] VITALS: BP 119/76
[2020-04-14] MEDS: ASPIRIN 325 MG TAB PO SCH (10:11)
[2020-04-14] MEDS: levETIRAcetam 500 MG TAB PO SCH (10:11)
--- NOTE | 2020-04-14 12:06 | Discharge Summary ---
Providers - Providers Date of Admission: 04/12/20 22:55 Attending physician: JIMENEZ FLORES MD 04/13/20 06:00 Consult to Physician [CONS] Routine Comment: Consulting Provider: KEKE PIERCE Physician Instructions: Reason For Exam: CVA Physical Therapy Evaluation and Treat [CONS] Routine Comment: Reason For Exam: CVA WITH LEFT SIDED WEAKNESS Speech Therapy Evaluation and Treat [CONS] Routine Reason For Exam: CVA WITH SPEECH IMPAIRMENT 04/13/20 17:22 Occupational Therapy Evaluate and Treat [CONS] Routine Comment: Reason For Exam: left sided weakness Primary care physician: FLAP CURER Hospitalization Condition: Stable Hospital course: patient is a 54-year-old male who said he started sleeping at about 1:00 yesterday and woke up 6 hours later with weakness on the left side of the body more than his baseline weakness which he sustained from old stroke. There was also speech impairment, patient denied history of dizziness, headache, change in mental status, chest pain, shortness of breath, nausea or vomiting, there is no history of fever. Patient was seen by neurology and as noted by them patient is a 54 y/o man w/ a h/o cerebral palsy, h/o seizures, h/o CVA w/ residual left sided weakness, DM, HTN, PTSD, COPD, HIV, CHF, CAD s/p CABG, depression, asthma, HLD, who p/w increased left sided weakness. According to the patient's clinical findings it is likely that he has had recrudescence of previous stroke symptoms. Alternatively, he may have had a focal seizure causing increased left sided weakness. He also has a history of syphilis. Acute CVA (cerebrovascular accident)-ruled out no evidence on current imaging study. Recrudescence of previous stroke symptoms vs. focal seizure vs. conversion di sorder: Seizures DM, HTN, PTSD, COPD, HIV, CHF, CAD s/p CABG, depression, asthma, HLD, who p/w increased left sided weaknes h/o cerebral palsy, h/o CVA w/ residual left sided weakness, Plan Renew meds. Continue supportive care - MRI brain: no acute abnormalities. Noted to have chronic hemispheric atrophy. - CT head: No acute abnormalities - CTA head/neck: no significant stenosis. - Cont. ASA and plavix, which he is taking at home. - Cont. statin. - Check UA. - Increase keppra to 750mg BID. PER NEUROLOGY - Recommend outpatient psychiatry follow up to address possible conversion di sorder with h/o PTSD, depression, and patient also states he is under somewhat increased stress recently. dISCHARGE IN AM AND RENEW MEDS. Disposition: DC-01 TO HOME OR SELFCARE Core Measure Documentation - Palliative Care Palliative Care/ Comfort Measures: Not Applicable Exam - Constitutional Vitals: Temp Pulse Resp BP Pulse Ox 97.9 F 95 H 20 119/76 99 04/14/20 09:49 04/14/20 09:49 04/14/20 10:00 04/14/20 09:49 04/14/20 10:00 Plan Activity: advance as tolerated, fall precautions Diet: low fat, diabetic Special Instructions: record daily weights, record daily BP diary, record blood sugar diary Additional Instructions: neurology follow up to be arranged by PCP Follow up with: PRIMARY CARE, [Primary Care Provider] - 3-5 Days [facility] [Outside] - 7 Days Prescriptions: Phenytoin [Dilantin] 300 mg PO QHS #90 Dicyclomine [Bentyl] 10 mg PO QID #30 capsule Docusate Sodium [Colace] 100 mg PO BID PRN #30 capsule PRN Reason: Constipation levETIRAcetam [Keppra TAB] 750 mg PO BID #90 tablet Metoprolol [Lopressor TAB] 100 mg PO BID #60
== END 2020-04-14 14:40 | disposition home or self-care (01) | DRG 101 ==
LOC: ED 19:50 → UNDOADMIN 22:55 → 4A 22:55
PROVIDERS: ADMIT Internal Medicine; ATTEND Internal Medicine
DX: G40.109 Localization-related (focal) (partial) symptomatic epilepsy and epileptic syndromes with simple partial seizures, not intractable, without status epilepticus (principal); I69.354 Hemiplegia and hemiparesis following cerebral infarction affecting left non-dominant side; I11.0 Hypertensive heart disease with heart failure; F44.4 Conversion disorder with motor symptom or deficit; I50.9 Heart failure, unspecified; E11.9 Type 2 diabetes mellitus without complications; I25.2 Old myocardial infarction; F43.10 Post-traumatic stress disorder, unspecified; F32.9 Major depressive disorder, single episode, unspecified; J44.9 Chronic obstructive pulmonary disease, unspecified; Z95.5 Presence of coronary angioplasty implant and graft; F17.210 Nicotine dependence, cigarettes, uncomplicated; G89.4 Chronic pain syndrome; Z88.8 Allergy status to other drugs, medicaments and biological substances; Z88.9 Allergy status to unspecified drugs, medicaments and biological substances; G80.9 Cerebral palsy, unspecified; E78.5 Hyperlipidemia, unspecified; Z21 Asymptomatic human immunodeficiency virus [HIV] infection status; Z79.4 Long term (current) use of insulin
CPT/HCPCS: 36415; 70450; 70496; 70498; 70551; 80048; 80061; 81001; 82962; 84484; 85025; 85610; 85670; 85730; G0378; A9270-GY; Q9967

== ENCOUNTER 2020-07-03 14:36 | Inpatient (IN) | payer MEDICARE ==
--- NOTE | 2020-07-03 15:09 | Cat Scan Report ---
Examination: CT of the head without contrast Clinical information: Stroke symptoms Comparison: CT of the head, 04/12/2020 Technical: Multiple axial CT images of the head were obtained without intravenous contrast. Sagittal and coronal reformats were obtained. All CTs at this facility utilize dose reduction techniques inc luding automated exposure control, iterative reconstruction and weight based dosing when appropriate to reduce patient radiation dose to as low as reasonable achievable. Findings: There is no definitive CT evidence of acute intracranial hemorrhage or acute large territor ial infarct. Atrophic changes throughout the right cerebral hemisphere are again noted with stable mo derate dilatation of the ventricular system most prominently involving the right lateral ventricle. Evaluation of the calvarium demonstrates no evidence of acute bony abnormality. Chronic bony changes of the right calvarium are again noted that may be posttraumatic or postsurgical. The visualized para nasal sinuses and mastoid air cells are clear. Impression: 1. No CT evidence of acute intracranial hemorrhage or large territorial infarct. 2. Stable chronic appearing atrophic changes throughout the right cerebral hemisphere with stable ex vacuo dilatation of the ventricular system. This study was designated as a code stroke protocol. Findings were personally communicated to Dr. Aiden rios in the Emergency Department at 2:05 PM Central time. Signer Name: Romi Vo MD Signed: 07/03/2020 3:05 PM Workstation Name: [id number]
[2020-07-03 15:26] LABS: Hematocrit 40.9 % (35.5-45.6); Hemoglobin 14.5 gm/dl (11.8-15.2); Mean Corpuscular HGB Conc 35 % (32-34); Mean Corpuscular Volume 91 fl (84-94); Platelet Count 178 K/mm3 (140-440); Red Cell Distribution Width 13.6 % (13.2-15.2)
[2020-07-03 15:38] LABS: INR 0.86 (0.87-1.13)
[2020-07-03 15:39] LABS: BUN/Creatinine Ratio 20; Blood Urea Nitrogen 16 mg/dL (9-20); Calcium 8.8 mg/dL (8.4-10.2); Hemolysis Index 24
[2020-07-03 15:40] LABS: Partial Thromboplastin Time 28.1 Sec. (24.2-36.6)
[2020-07-03] MEDS ORDERED: ASPIRIN 325 MG TAB PO ONE (16:03)
--- NOTE | 2020-07-03 16:03 | Emergency Department Report ---
ED Neuro Deficit HPI - General Chief Complaint: Neuro Symptoms/Deficit Stated Complaint: STROKE Time Seen by Provider: 07/03/20 14:42 Source: patient, EMS Mode of arrival: Stretcher Limitations: Physical Limitation - History of Present Illness Initial Comments: Patient is a 54-year-old F [place] male with a past medical history of coronary disease and remote CVA, syphilis and SZ who had bypass surgery approximately 6 months ago is presenting with left-sided weakness and slurred speech. Patient went to bed approximately 11-12 last night and woke up with the symptoms. Patient is denying any chest pain shortness of breath fevers chills cough cold or congestion. - Related Data Home Medications: Home Medications Medication Instructions Recorded Confirmed Last Taken ARIPiprazole [Abilify TAB] 15 mg PO DAILY 06/05/19 04/13/20 Unknown Albuterol Mdi (or & Nicu Only) 2 puff IH Q4H PRN 06/05/19 04/13/20 04/12/20 [ProAir HFA Inhaler] Aspirin [Adult Aspirin] 81 mg PO DAILY 06/05/19 04/13/20 04/13/20 12:17 Doxepin [SINEquan] 100 mg PO QHS 06/05/19 04/13/20 04/12/20 Fluticasone/Salmeterol(Nf) [Advair 2 puff IH BID 06/05/19 04/13/20 04/12/20 HFA 230-21 mcg] Furosemide [Lasix TAB] 40 mg PO QDAY 06/05/19 04/13/20 04/12/20 Insulin NPH Hum/Reg Insulin Hm 30 units SUB-Q QHS 06/05/19 04/13/20 Unknown [Novolin 70-30 Flexpen] Insulin NPH/Regular [NovoLIN 70/30] 20 units SUB-Q QAM 06/05/19 04/13/20 Unknown Ipratropium/Albuterol Sulfate 1 spray IH QID 06/05/19 04/13/20 Unknown [Combivent Respimat] Mirtazapine [Remeron 15mg TAB] 15 mg PO QHS 06/05/19 04/13/20 04/12/20 Oxycodone HCl/Acetaminophen 1 each PO Q6HR PRN 06/05/19 04/13/20 04/12/20 [Percocet 10/325 mg] Potassium Chloride [K-Dur] 20 meq PO QDAY 06/05/19 04/13/20 04/12/20 Rosuvastatin Calcium 40 mg PO QHS 06/05/19 04/13/20 Unknown busPIRone [Buspar] 10 mg PO BID 06/05/19 04/13/20 04/12/20 Nucynta 75 mg PO ONCE 04/13/20 04/13/20 04/12/20 Triumeq 600-50-300 mg Tablet 600 mg PO DAILY 04/14/20 04/14/20 04/12/20 Previous Rx's Medication Instructions Recorded Last Taken Type Clopidogrel [Plavix] 75 mg PO DAILY #30 tablet 05/10/19 04/12/20 Rx Dicyclomine [Bentyl] 10 mg PO QID #30 capsule 04/14/20 Unknown Rx Docusate Sodium [Colace] 100 mg PO BID PRN #30 capsule 04/14/20 Unknown Rx Metoprolol [Lopressor TAB] 100 mg PO BID #60 04/14/20 Unknown Rx Phenytoin [Dilantin] 300 mg PO QHS #90 04/14/20 Unknown Rx levETIRAcetam [Keppra TAB] 750 mg PO BID #90 tablet 04/14/20 Unknown Rx Allergies/Adverse Reactions: Allergies Allergy/AdvReac Type Severity Reaction Status Date / Time metoclopramide [From Reglan] Allergy Anaphylaxis Verified 05/08/19 16:45 prochlorperazine Allergy Anaphylaxis Verified 05/08/19 16:45 [From Compazine] promethazine [From Phenergan] Allergy Anaphylaxis Verified 05/08/19 16:45 ED Review of Systems ROS: Stated complaint: STROKE Other details as noted in HPI Comment: All other systems reviewed and negative ED Past Medical Hx - Past Medical History Previous Medical History?: Yes Hx Hypertension: Yes Hx CVA: Yes (left sided weakness) Hx Heart Attack/AMI: Yes Hx Congestive Heart Failure: Yes Hx Diabetes: Yes Hx Seizures: Yes Hx Psychiatric Treatment: Yes (PTSD,depression) Hx Asthma: Yes Hx COPD: Yes Hx HIV: Yes Additional medical history: Cerebral palsy - Surgical History Additional Surgical History: CABG - Social History Smoking Status: Current Every Day Smoker Substance Use Type: None - Medications Home Medications: Home Medications Medication Instructions Recorded Confirmed Last Taken Type Clopidogrel [Plavix] 75 mg PO DAILY #30 tablet 05/10/19 04/13/20 04/12/20 Rx ARIPiprazole [Abilify TAB] 15 mg PO DAILY 06/05/19 04/13/20 Unknown History Albuterol Mdi (or & Nicu Only) 2 puff IH Q4H PRN 06/05/19 04/13/20 04/12/20 History [ProAir HFA Inhaler] Aspirin [Adult Aspirin] 81 mg PO DAILY 06/05/19 04/13/20 04/13/20 12:17 History Doxepin [SINEquan] 100 mg PO QHS 06/05/19 04/13/20 04/12/20 History Fluticasone/Salmeterol(Nf) [Advair 2 puff IH BID 06/05/19 04/13/20 04/12/20 H istory HFA 230-21 mcg] Furosemide [Lasix TAB] 40 mg PO QDAY 06/05/19 04/13/20 04/12/20 History Insulin NPH Hum/Reg Insulin Hm 30 units SUB-Q QHS 06/05/19 04/13/20 Unknown History [Novolin 70-30 Flexpen] Insulin NPH/Regular [NovoLIN 70/30] 20 units SUB-Q QAM 06/05/19 04/13/20 Unknown History Ipratropium/Albuterol Sulfate 1 spray IH QID 06/05/19 04/13/20 Unknown History [Combivent Respimat] Mirtazapine [Remeron 15mg TAB] 15 mg PO QHS 06/05/19 04/13/20 04/12/20 History Oxycodone HCl/Acetaminophen 1 each PO Q6HR PRN 06/05/19 04/13/20 04/12/20 History [Percocet 10/325 mg] Potassium Chloride [K-Dur] 20 meq PO QDAY 06/05/19 04/13/20 04/12/20 History Rosuvastatin Calcium 40 mg PO QHS 06/05/19 04/13/20 Unknown History busPIRone [Buspar] 10 mg PO BID 06/05/19 04/13/20 04/12/20 History Nucynta 75 mg PO ONCE 04/13/20 04/13/20 04/12/20 History Dicyclomine [Bentyl] 10 mg PO QID #30 capsule 04/14/20 Unknown Rx Docusate Sodium [Colace] 100 mg PO BID PRN #30 capsule 04/14/20 Unknown Rx Metoprolol [Lopressor TAB] 100 mg PO BID #60 04/14/20 Unknown Rx Phenytoin [Dilantin] 300 mg PO QHS #90 04/14/20 Unknown Rx Triumeq 600-50-300 mg Tablet 600 mg PO DAILY 04/14/20 04/14/20 04/12/20 History levETIRAcetam [Keppra TAB] 750 mg PO BID #90 tablet 04/14/20 Unknown Rx ED Neuro Physical Exam - General Limitations: Physical Limitation General appearance: alert, in no apparent distress Suspected Stroke: Yes - Head Head exam: Present: atraumatic, normocephalic - Eye Eye exam: Present: normal appearance, PERRL, EOMI - ENT ENT exam: Present: normal orophraynx, mucous membranes moist - Neck Neck exam: Present: normal inspection - Respiratory Respiratory exam: Present: normal lung sounds bilaterally. Absent: respiratory distress, wheezes, rales, rhonchi - Cardiovascular Cardiovascular Exam: Present: regular rate, normal rhythm, normal heart sounds. Absent: systolic murmur, diastolic murmur, rubs, gallop - GI/Abdominal GI/Abdominal exam: Present: soft, normal bowel sounds. Absent: distended, tenderness, guarding, rebound - Rectal Rectal exam: Present: deferred - Extremities Exam Extremities exam: Present: normal inspection - Back Exam Back exam: Present: normal inspection - Neurological Exam Neurological exam: Present: alert, oriented X3, motor sensory deficit - NIHSS Assessment Interval: Baseline 1a. Level of Consciousness: alert/keenly responsive 1b. LOC Questions: answers both correctly 1c. LOC Commands: performs tasks correctly 2. Best Gaze: normal 3. Visual: no visual loss 4. Facial Palsy: minor paralysis 5b. Motor Arm Right: no drift 5a. Motor Arm Left: some gravity effort 6a. Motor Leg Left: some gravity effort 6b. Motor Leg Right: no drift 7. Limb Ataxia: absent 8. Sensory: normal 9. Best Language: mild/moderate aphasia 10. Dysarthria: normal 11. Extinction/Inattention: no abnormality Total Score: 6 Stroke Severity: Moderate Stroke - Psychiatric Psychiatric exam: Present: normal affect, normal mood - Skin Skin exam: Present: warm, dry, intact, normal color. Absent: rash ED Course Vital Signs 07/03/20 15:30 Temperature 98 F Pulse Rate 90 Respiratory 18 Rate Blood Pressure 131/80 O2 Sat by Pulse 100 Oximetry - Lab Data Result diagrams: 07/03/20 15:15 07/03/20 15:15 Lab Results 07/03/20 07/03/20 07/03/20 Range/Units 15:15 15:15 15:15 WBC 3.6 L (4.5-11.0) K/mm3 RBC 4.50 (3.65-5.03) M/mm3 Hgb 14.5 (11.8-15.2) gm/dl Hct 40.9 (35.5-45.6) % MCV 91 (84-94) fl MCH 32 (28-32) pg MCHC 35 H (32-34) % RDW 13.6 (13.2-15.2) % Plt Count 178 (140-440) K/mm3 [place] % (Auto) Church Official Add Manual Diff Complete Total Counted 100 Seg Neuts % (Manual) 44.0 (40.0-70.0) % Band Neutrophils % 0 % Lymphocytes % (Manual) 38.0 H (13.4-35.0) % Reactive Lymphs % (Man) 0 % Monocytes % (Manual) 16.0 H (0.0-7.3) % Eosinophils % (Manual) 1.0 (0.0-4.3) % Basophils % (Manual) 1.0 (0.0-1.8) % Metamyelocytes % 0 % Myelocytes % 0 % Promyelocytes % 0 % Blast Cells % 0 % Nucleated RBC % Not Reportable Seg Neutrophils # Man 1.6 L (1.8-7.7) K/mm3 Band Neutrophils # 0.0 K/mm3 Lymphocytes # (Manual) 1.4 (1.2-5.4) K/mm3 Abs React Lymphs (Man) 0.0 K/mm3 Monocytes # (Manual) 0.6 (0.0-0.8) K/mm3 Eosinophils # (Manual) 0.0 (0.0-0.4) K/mm3 Basophils # (Manual) 0.0 (0.0-0.1) K/mm3 Metamyelocytes # 0.0 K/mm3 Myelocytes # 0.0 K/mm3 Promyelocytes # 0.0 K/mm3 Blast Cells # 0.0 K/mm3 WBC Morphology Not Reportable Hypersegmented Neuts Not Reportable Hyposegmented Neuts Not Reportable Hypogranular Neuts Not Reportable Smudge Cells Not Reportable Toxic Granulation Not Reportable Toxic Vacuolation Not Reportable Dohle Bodies Not Reportable Pelger-Huet Anomaly Not Reportable Michael Rods Not Reportable Platelet Estimate Not Reportable Clumped Platelets Not Reportable Plt Clumps, EDTA Not Reportable Large Platelets Not Reportable Giant Platelets Not Reportable Platelet Satelliting Not Reportable Plt Morphology Comment Not Reportable RBC Morphology Normal Dimorphic RBCs Not Reportable Polychromasia Not Reportable Hypochromasia Not Reportable Poikilocytosis Not Reportable Anisocytosis Not Reportable Microcytosis Not Reportable Macrocytosis Not Reportable Spherocytes Not Reportable Pappenheimer Bodies Not Reportable Sickle Cells Not Reportable Target Cells Not Reportable Tear Drop Cells Not Reportable Ovalocytes Not Reportable Helmet Cells Not Reportable Lowe-Ronneby Bodies Not Reportable Brea Rings Not Reportable Doug Cells Not Reportable Bite Cells Not Reportable Crenated Cell Not Reportable Elliptocytes Not Reportable Acanthocytes (Spur) Not Reportable Rouleaux Not Reportable Hemoglobin C Crystals Not Reportable Schistocytes Not Reportable Malaria parasites Not Reportable Kirill Bodies Not Reportable Hem Pathologist Commnt No PT 11.9 L (12.2-14.9) Sec. INR 0.86 L (0.87-1.13) APTT 28.1 (24.2-36.6) Sec. Thrombin Time (15.1-19.6) Sec. Sodium 140 (137-145) mmol/L Potassium 4.3 (3.6-5.0) mmol/L Chloride 103.8 (98-107) mmol/L Carbon Dioxide 23 (22-30) mmol/L Anion Gap 18 mmol/L BUN 16 (9-20) mg/dL Creatinine 0.8 (0.8-1.3) mg/dL Estimated GFR > 60 ml/min BUN/Creatinine Ratio 20 % Glucose 86 (75-100) mg/dL POC Glucose (70-105) Calcium 8.8 (8.4-10.2) mg/dL Troponin T < 0.010 (0.00-0.029) ng/mL 07/03/20 07/03/20 Range/Units 15:15 15:55 WBC (4.5-11.0) K/mm3 RBC (3.65-5.03) M/mm3 Hgb (11.8-15.2) gm/dl Hct (35.5-45.6) % MCV (84-94) fl MCH (28-32) pg MCHC (32-34) % RDW (13.2-15.2) % Plt Count (140-440) K/mm3 [place] % (Auto) Add Manual Diff Total Counted Seg Neuts % (Manual) (40.0-70.0) % Band Neutrophils % % Lymphocytes % (Manual) (13.4-35.0) % Reactive Lymphs % (Man) % Monocytes % (Manual) (0.0-7.3) % Eosinophils % (Manual) (0.0-4.3) % Basophils % (Manual) (0.0-1.8) % Metamyelocytes % % Myelocytes % % Promyelocytes % % Blast Cells % % Nucleated RBC % Seg Neutrophils # Man (1.8-7.7) K/mm3 Band Neutrophils # K/mm3 Lymphocytes # (Manual) (1.2-5.4) K/mm3 Abs React Lymphs (Man) K/mm3 Monocytes # (Manual) (0.0-0.8) K/mm3 Eosinophils # (Manual) (0.0-0.4) K/mm3 Basophils # (Manual) (0.0-0.1) K/mm3 Metamyelocytes # K/mm3 Myelocytes # K/mm3 Promyelocytes # K/mm3 Blast Cells # K/mm3 WBC Morphology Hypersegmented Neuts Hyposegmented Neuts Hypogranular Neuts Smudge Cells Toxic Granulation Toxic Vacuolation Dohle Bodies Pelger-Huet Anomaly Michael Rods Platelet Estimate Clumped Platelets Plt Clumps, EDTA Large Platelets Giant Platelets Platelet Satelliting Plt Morphology Comment RBC Morphology Dimorphic RBCs Polychromasia Hypochromasia Poikilocytosis Anisocytosis Microcytosis Macrocytosis Spherocytes Pappenheimer Bodies Sickle Cells Target Cells Tear Drop Cells Ovalocytes Helmet Cells Lowe-Ronneby Bodies Brea Rings Doug Cells Bite Cells Crenated Cell Elliptocytes Acanthocytes (Spur) Rouleaux Hemoglobin C Crystals Schistocytes Malaria parasites Kirill Bodies Hem Pathologist Commnt PT (12.2-14.9) Sec. INR (0.87-1.13) APTT (24.2-36.6) Sec. Thrombin Time 18.1 (15.1-19.6) Sec. Sodium (137-145) mmol/L Potassium (3.6-5.0) mmol/L Chloride (98-107) mmol/L Carbon Dioxide (22-30) mmol/L Anion Gap mmol/L BUN (9-20) mg/dL Creatinine (0.8-1.3) mg/dL Estimated GFR ml/min BUN/Creatinine Ratio % Glucose (75-100) mg/dL POC Glucose 88 (70-105) Calcium (8.4-10.2) mg/dL Troponin T (0.00-0.029) ng/mL - EKG Data -: EKG Interpreted by Ks EKG shows normal: sinus rhythm, axis, intervals, QRS complexes, ST-T waves Rate: normal Interpretation: normal EKG - Radiology Data Ordering Physician: PILAR ABRAMS MD Date of Service: 07/03/20 Procedure(s): CT head/brain wo con Accession Number(s): [id number] cc: PILAR ABRAMS MD Examination: CT of the head without contrast Clinical information: Stroke symptoms Comparison: CT of the head, 04/12/2020 Technical: Multiple axial CT images of the head were obtained without intravenous contrast. Sagittal and coronal reformats were obtained. All CTs at this facility utilize dose reduction techniques including automated exposure control, iterative reconstruction and weight based dosing when appropriate to reduce patient radiation dose to as low as reasonable achievable. Findings: There is no definitive CT evidence of acute intracranial hemorrhage or acute large territorial infarct. Atrophic changes throughout the right cerebral hemisphere are again noted with stable moderate dilatation of the ventricular system most prominently involving the right lateral ventricle. Evaluation of the calvarium demonstrates no evidence of acute bony abnormality. Chronic bony changes of the right calvarium are again noted that may be posttraumatic or postsurgical. The visualized paranasal sinuses and mastoid air cells are clear. Impression: 1. No CT evidence of acute intracranial hemorrhage or large territorial infarct. 2. Stable chronic appearing atrophic changes throughout the right cerebral hemisphere with stable ex vacuo dilatation of the ventricular system. This study was designated as a code stroke protocol. Findings were personally communicated to Dr. Abrams in the Emergency Department at 2:05 PM Central time. Signer Name: Romi Vo MD Signed: 07/03/2020 3:05 PM Workstation Name: [id number] CT angio neck INDICATION / CLINICAL INFORMATION: 54 years Male; stroke. TECHNIQUE: Thin cut axial images obtained through the head during IV bolus contrast administration. Sagittal, coronal, and 3 plane MIP reconstructions performed by the technologist. NASCET type criteria used evaluate stenoses. All CT scans at this location are performed using CT dose reduction for ALARA by means of automated exposure control. COMPARISON: None available. FINDINGS: CAROTID ARTERIES: There is mild atherosclerotic plaque involving carotid bifurcations and proximal ICAs with small foci of calcification. However, there is no significant stenosis of the carotid arteries by NASCET criteria. VERTEBRAL ARTERIES: The vertebral arteries appear to demonstrate appropriate caliber without significant focal narrowing. ARCH: There is no significant stenosis involving the arch vessels. ADDITIONAL FINDINGS: Remainder of the surrounding soft tissues are grossly normal. IMPRESSION: There is mild atherosclerotic plaque involving proximal internal carotid arteries without significant stenosis by NASCET criteria. Signer Name: Juan Truong MD Signed: 07/03/2020 3:13 PM Workstation Name: [id number] CT angio head INDICATION / CLINICAL INFORMATION: 54 years Male; MAIN. TECHNIQUE: Thin cut axial images obtained through the head during IV bolus contrast administration. Sagittal, coronal, and 3 plane MIP reconstructions performed by the technologist. NASCET type criteria used evaluate stenoses. Automated exposure control utilized for radiation reduction purposes. COMPARISON: The study is compared with the most recent of numerous CTAs of the head dated 04/12/2020. FINDINGS: INTERNAL CAROTID ARTERIES: There is minimal atherosclerotic disease involving distal internal carotid arteries without clear evidence of significant developing stenosis from the previous CTA. VERTEBROBASILAR SYSTEM: The vertebral basilar system also demonstrate appropriate caliber without significant developing stenosis. CEREBRAL ARTERIES: There is no CTA evidence of developing focal stenosis involving proximal cerebral arteries or adjacent branches. There is no developing large vessel occlusion. ANEURYSM: None identified. ADDITIONAL FINDINGS: The dural venous sinuses opacify with contrast. IMPRESSION: There is no clear CTA evidence of significant interval developing stenosis involving intracranial vessels from the previous exam of 04/12/2020. The study was specified as code stroke. The initial exam was incomplete and resulted in some delay dictation of this study. Signer Name: Juan Truong MD Signed: 07/03/2020 3:21 PM Workstation Name: [id number] - Medical Decision Making Patient is a 54-year-old F [place] male who is presenting with strokelike symptoms upon waking. CT a of the head and neck showed no significant lesions warranting further surgical intervention. Patient will be admitted to the [facility] for further management. Critical care attestation.: If time is entered above; I have spent that time in minutes in the direct care of this critically ill patient, excluding procedure time. ED Disposition Clinical Impression: Hx of CABG, Acute CVA (cerebrovascular accident) Disposition: DC-09 OP ADMIT IP TO THIS HOSP Is pt being admited?: Yes Does the pt Need Aspirin: No Condition: Stable Time of Disposition: 16:41
--- NOTE | 2020-07-03 16:17 | Cat Scan Report ---
CT angio neck INDICATION / CLINICAL INFORMATION: 54 years Male; stroke. TECHNIQUE: Thin cut axial images obtained through the head during IV bolus contrast administration. S agittal, coronal, and 3 plane MIP reconstructions performed by the technologist. NASCET type criteria used evaluate stenoses. All CT scans at this location are performed using CT dose reduction for ALAR A by means of automated exposure control. COMPARISON: None available. FINDINGS: CAROTID ARTERIES: There is mild atherosclerotic plaque involving carotid bifurcations and proximal IC As with small foci of calcification. However, there is no significant stenosis of the carotid arterie s by NASCET criteria. VERTEBRAL ARTERIES: The vertebral arteries appear to demonstrate appropriate caliber without signific ant focal narrowing. ARCH: There is no significant stenosis involving the arch vessels. ADDITIONAL FINDINGS: Remainder of the surrounding soft tissues are grossly normal. IMPRESSION: There is mild atherosclerotic plaque involving proximal internal carotid arteries without significant stenosis by NASCET criteria. Signer Name: Juan Truong MD Signed: 07/03/2020 4:13 PM Workstation Name: [id number]
--- NOTE | 2020-07-03 16:25 | Cat Scan Report ---
CT angio head INDICATION / CLINICAL INFORMATION: 54 years Male; MAIN. TECHNIQUE: Thin cut axial images obtained through the head during IV bolus contrast administration. S agittal, coronal, and 3 plane MIP reconstructions performed by the technologist. NASCET type criteria used evaluate stenoses. Automated exposure control utilized for radiation reduction purposes. COMPARISON: The study is compared with the most recent of numerous CTAs of the head dated 04/12/2020. FINDINGS: INTERNAL CAROTID ARTERIES: There is minimal atherosclerotic disease involving distal internal carotid arteries without clear evidence of significant developing stenosis from the previous CTA. VERTEBROBASILAR SYSTEM: The vertebral basilar system also demonstrate appropriate caliber without sig nificant developing stenosis. CEREBRAL ARTERIES: There is no CTA evidence of developing focal stenosis involving proximal cerebral arteries or adjacent branches. There is no developing large vessel occlusion. ANEURYSM: None identified. ADDITIONAL FINDINGS: The dural venous sinuses opacify with contrast. IMPRESSION: There is no clear CTA evidence of significant interval developing stenosis involving intracranial ves sels from the previous exam of 04/12/2020. The study was specified as code stroke. The initial exam was incomplete and resulted in some delay di ctation of this study. Signer Name: Juan Truong MD Signed: 07/03/2020 4:21 PM Workstation Name: [id number]
--- NOTE | 2020-07-03 16:26 | XRay Report ---
CHEST 1 VIEW, 07/03/2020 3:58 PM CLINICAL INFORMATION/INDICATION: Stroke symptoms COMPARISON: Chest radiograph, 01/21/2020 FINDINGS: SUPPORT DEVICES: None. HEART: The cardiac silhouette is normal in size. LUNGS/PLEURA: The lungs are clear of focal airspace disease or significant pleural effusion. ADDITIONAL FINDINGS: No additional acute findings. IMPRESSION: 1. No evidence of acute cardiopulmonary process. Signer Name: Romi Vo MD Signed: 07/03/2020 4:22 PM Workstation Name: [id number]
[2020-07-03 16:30] LABS: Total Cells Counted 100
[2020-07-03 16:31] LABS: RBC Morphology Normal
--- NOTE | 2020-07-03 16:41 | History and Physical Report ---
History of Present Illness Chief complaint: I am weak on my left and my speech is slurred History of present illness: 54 YO Male with HIV, CVA with LHP on DAPT, CP, SLE, CAD S/P CABG, [place], DM, PTSD, Depression, HTN, HLD, Asthma, Chronic Pain Syndrome, COPD, Seizure Disorder, Nicotine Dependence presents to ED for evaluation. Patient states that he was in his usual state of health at bedtime which was around 2200 hrs. last night. Patient states that he awoke from sleep this morning and was found to have new onset worsening of left-sided weakness as well as slurred speech. EMS was notified and upon arrival the patient was found to be in distress with a neurologic deficit. A code stroke was called and the patient was transported to [facility] for further care and evaluation of the aforementioned symptoms. Patient seen and evaluated in the emergency department. Lab and imaging studies reviewed. Patient found to have symptoms consistent with CVA with concomitant diagnosis of HIV, coronary artery disease, and seizure disorder. Tele-neurology consulted. Patient placed in observation status and admitted to medical floor for further care and evaluation. Patient denies fever, chills, chest pain, palpitation, productive cough, skin rash, recent ill contacts. Prior admission on 04/12/2020 reviewed. All medication listed at time of admission has been reconciled. Pt Past History Past Medical History: acute [place], CAD, HIV/AIDS, hyperlipidemia, stroke Past Surgical History: CABG Social history: , smoking. denies: alcohol abuse, prescription drug abuse Family history: diabetes, hypertension Medications and Allergies Allergies Allergy/AdvReac Type Severity Reaction Status Date / Time metoclopramide [From Reglan] Allergy Anaphylaxis Verified 05/08/19 16:45 prochlorperazine Allergy Anaphylaxis Verified 05/08/19 16:45 [From Compazine] promethazine [From Phenergan] Allergy Anaphylaxis Verified 05/08/19 16:45 Home Medications Medication Instructions Recorded Confirmed Last Taken Type Clopidogrel [Plavix] 75 mg PO DAILY #30 tablet 05/10/19 04/13/20 04/12/20 Rx ARIPiprazole [Abilify TAB] 15 mg PO DAILY 06/05/19 04/13/20 Unknown History Albuterol Mdi (or & Nicu Only) 2 puff IH Q4H PRN 06/05/19 04/13/20 04/12/20 History [ProAir HFA Inhaler] Aspirin [Adult Aspirin] 81 mg PO DAILY 06/05/19 04/13/20 04/13/20 12:17 History Doxepin [SINEquan] 100 mg PO QHS 06/05/19 04/13/20 04/12/20 History Fluticasone/Salmeterol(Nf) [Advair 2 puff IH BID 06/05/19 04/13/20 04/12/20 History HFA 230-21 mcg] Furosemide [Lasix TAB] 40 mg PO QDAY 06/05/19 04/13/20 04/12/20 History Insulin NPH Hum/Reg Insulin Hm 30 units SUB-Q QHS 06/05/19 04/13/20 Unknown History [Novolin 70-30 Flexpen] Insulin NPH/Regular [NovoLIN 70/30] 20 units SUB-Q QAM 06/05/19 04/13/20 Unknown History Ipratropium/Albuterol Sulfate 1 spray IH QID 06/05/19 04/13/20 Unknown History [Combivent Respimat] Mirtazapine [Remeron 15mg TAB] 15 mg PO QHS 06/05/19 04/13/20 04/12/20 History Oxycodone HCl/Acetaminophen 1 each PO Q6HR PRN 06/05/19 04/13/20 04/12/20 History [Percocet 10/325 mg] Potassium Chloride [K-Dur] 20 meq PO QDAY 06/05/19 04/13/20 04/12/20 History Rosuvastatin Calcium 40 mg PO QHS 06/05/19 04/13/20 Unknown History busPIRone [Buspar] 10 mg PO BID 06/05/19 04/13/20 04/12/20 History Nucynta 75 mg PO ONCE 04/13/20 04/13/20 04/12/20 History Dicyclomine [Bentyl] 10 mg PO QID #30 capsule 04/14/20 Unknown Rx Docusate Sodium [Colace] 100 mg PO BID PRN #30 capsule 04/14/20 Unknown Rx Metoprolol [Lopressor TAB] 100 mg PO BID #60 04/14/20 Unknown Rx Phenytoin [Dilantin] 300 mg PO QHS #90 04/14/20 Unknown Rx Triumeq 600-50-300 mg Tablet 600 mg PO DAILY 04/14/20 04/14/20 04/12/20 History levETIRAcetam [Keppra TAB] 750 mg PO BID #90 tablet 04/14/20 Unknown Rx Review of Systems Constitutional: no weight loss, no weight gain, no fever, no chills Ears, nose, mouth and throat: no ear pain, no ear discharge, no tinnitis, no decreased hearing, no nose pain, no nasal congestion Cardiovascular: no chest pain, no orthopnea, no palpitations, no rapid/irregular heart beat, no edema, no lightheadedness Respiratory: no cough, no cough with sputum, no excessive sputum, no hemoptysis Gastrointestinal: no abdominal pain, no nausea, no diarrhea, no change in bowel habits Genitourinary Male: no dysuria, no discharge, no urinary hesitancy, no erectile dysfunction Rectal: no pain, no incontinence, no bleeding Musculoskeletal: no arm numbness/tingling Integumentary: no rash, no pruritis, no redness, no sores, no wounds Neurological: paralysis, weakness, change in speech, motor disturbance, no tingling, no seizures, no vertigo, no headaches, no migraines Psychiatric: no anxiety, no memory loss, no change in sleep habits, no sleep disturbances, no insomnia, no hypersomnia, no change in libido Endocrine: no cold intolerance, no heat intolerance, no polyphagia, no polydipsia, no polyuria, no nocturia Hematologic/Lymphatic: no easy bruising, no easy bleeding, no lymphedema Allergic/Immunologic: no urticaria, no wheezing, no angioedema Exam - Constitutional Vitals: Temp Pulse Resp BP Pulse Ox 98 F 90 18 131/80 100 07/03/20 15:30 07/03/20 15:30 07/03/20 15:30 07/03/20 15:30 07/03/20 15:30 General appearance: Present: mild distress - EENT Eyes: Present: PERRL ENT: hearing intact, clear oral mucosa - Neck Neck: Present: supple, normal ROM - Respiratory Respiratory effort: normal Respiratory: bilateral: CTA - Cardiovascular Heart Sounds: Present: S1 & S2. Absent: rub, click - Extremities Extremities: pulses symmetrical, No edema Peripheral Pulses: within normal limits - Abdominal General gastrointestinal: Present: soft, non-tender, non-distended, normal bowel sounds Male genitourinary: Present: normal - Integumentary Integumentary: Present: clear, warm, dry - Musculoskeletal Musculoskeletal: left sided weakness - Psychiatric Psychiatric: appropriate mood/affect, intact judgment & insight - Neurologic Neurologic: CNII-XII intact, focal deficits, moves all extremities, no gait normal HEART Score - HEART Score Troponin: Troponin T < 0.010 ng/mL (0.00-0.029) 07/03/20 15:15 Results - Labs CBC & Chem 7: 07/03/20 15:15 07/03/20 15:15 Labs: Abnormal lab results 07/03/20 07/03/20 Range/Units 15:15 15:15 WBC 3.6 L (4.5-11.0) K/mm3 MCHC 35 H (32-34) % Lymphocytes % (Manual) 38.0 H (13.4-35.0) % Monocytes % (Manual) 16.0 H (0.0-7.3) % Seg Neutrophils # Man 1.6 L (1.8-7.7) K/mm3 PT 11.9 L (12.2-14.9) Sec. INR 0.86 L (0.87-1.13) Assessment and Plan - Patient Problems (1) CVA (cerebral vascular accident) Current Visit: No Status: Acute Qualifiers: Precerebral and cerebral artery: middle cerebral artery Laterality of affected vessel: right Plan to address problem: CVA protocol: CT head, neuro check, seizure precaution, fall precautions, physical therapy consulted, Occupational Therapy consulted, speech therapy consulted, dual antiplatelet therapy, CTA of the head and neck, carotid Doppler, echocardiogram from 01/18 reviewed, carotid Doppler from 06/19 reviewed. (2) CAD (coronary artery disease) Current Visit: Yes Status: Acute Qualifiers: Associated angina: without angina Plan to address problem: Statin therapy, low-cholesterol diet, smoking cessation, risk factor reduction therapy. (3) Nicotine dependence Current Visit: Yes Status: Acute Qualifiers: Nicotine product type: cigarettes Substance use status: in withdrawal Qualified Code(s): F17.213 - Nicotine dependence, cigarettes, with withdrawal Plan to address problem: Supportive care, smoking cessation counseling, behavior change counseling, +15 minutes. (4) HIV disease Current Visit: Yes Status: Acute Plan to address problem: Continue current therapy, outpatient infectious disease service follow-up. (5) Chronic pain syndrome Current Visit: Yes Status: Acute Plan to address problem: Continue pain management, supportive care. Pain assessment as per nursing care routine. (6) Seizure disorder Current Visit: Yes Status: Acute Plan to address problem: Seizure precautions, continue Keppra, neurochecks. (7) DVT prophylaxis Current Visit: No Status: Acute Plan to address problem: SCD to bilateral lower extremities while in bed, patient is ambulatory
[2020-07-03] MEDS ORDERED: METOCLOPRAMIDE 10 MG TAB PO PRN (16:44)
[2020-07-03] MEDS ORDERED: ONDANSETRON 4 MG/2 ML INJ IV PRN (16:44)
[2020-07-03] MEDS ORDERED: MAGNESIUM HYDROXIDE (MOM) ORAL LIQD UDC PO PRN (16:44)
[2020-07-03] MEDS ORDERED: ACETAMINOPHEN 325 MG TAB PO PRN (16:44)
[2020-07-03] MEDS ORDERED: PROMETHAZINE 25 MG RECT SUPP PR PRN (16:44)
--- NOTE | 2020-07-03 18:57 | Emergency Department Report ---
ED Neuro Deficit HPI - General Chief Complaint: Neuro Symptoms/Deficit Stated Complaint: STROKE Time Seen by Provider: 07/03/20 14:42 Source: patient, EMS Mode of arrival: Wheelchair Limitations: Physical Limitation - History of Present Illness Initial Comments: [facility] Tele[facility]urology Consult [facility] Date of Service: 07/03/2020 14:35:08 Impression: Rule Out Acute Ischemic Stroke Comments/Sign-Out: CTA head/neck was negative. He was weak on the left side. No alteplase. No Neuro Interventional. Conisder possible seizure. EEG. MRI tomorrow. Etiology: Unknown 1. Conversion 2. Seizure 3. Stroke All three need ro Mechanism of Stroke: Possible Thromboembolic Metrics: Last Known Well: 07/02/2020 23:00:00 [facility] Notification Time: 07/03/2020 14:34:46 Arrival Time: 07/03/2020 14:36:01 Stamp Time: 07/03/2020 14:35:08 Time First Login Attempt: 07/03/2020 14:39:11 Video Start Time: 07/03/2020 14:39:11 Symptoms: woke up had left sided weakness NIHSS Start Assessment Time: 07/03/2020 14:43:37 Patient is not a candidate for Alteplase/Activase. Patient was not deemed candidate for Alteplase/Activase thrombolytics because of Last Well Known Above 4.5 Hours. Video End Time: 07/03/2020 14:45:57 CT head showed no acute hemorrhage or acute core infarct. Clinical Presentation is Suggestive of Large Vessel Occlusive Disease, Recommendations are as Follows Reviewed, No Indication of Large Vessel Occlusive Thrombus, Patient is not an PATSY Candidate. ED Physician notified of diagnostic impression and management plan on 07/03/2020 14:45:57 Our recommendations are outlined below. Recommendations: Activate Stroke Protocol Admission/Order Set Stroke/Telemetry Floor Neuro Checks Bedside Swallow Eval DVT Prophylaxis IV Fluids, Normal Saline Head of Bed 30 Degrees Euglycemia and Avoid Hyperthermia (PRN Acetaminophen) Antiplatelet Therapy Recommended Sign Out: Discussed with Emergency Department Provider History of Present Illness: Patient is a 55 year old Male. Patient was brought by EMS for symptoms of woke up had left sided weakness The patient woke up and had left sided weakness, with history of seizures (last seizure six months prior), quadruple bypass, left sided weakness, chf. He was unable to move his left arm or left leg at all today on wakeup. There is no effort that I notice on examination. He has a history of stroke. Past Medical History: Hypertension Hyperlipidemia Atrial Fibrillation Coronary Artery Disease Stroke There is NO history of Diabetes Mellitus Anticoagulant use: No Antiplatelet use: plavix Examination: BP(136/87), Pulse(90), Blood Glucose(86) 1A: Level of Consciousness - Alert; keenly responsive + 0 1B: Ask Month and Age - Both Questions Right + 0 1C: Blink Eyes & Squeeze Hands - Performs Both Tasks + 0 2: Test Horizontal Extraocular Movements - Normal + 0 3: Test Visual Cam - No Visual Loss + 0 4: Test Facial Palsy (Use Grimace if Obtunded) - Normal symmetry + 0 5A: Test Left Arm Motor Drift - No Movement + 4 5B: Test Right Arm Motor Drift - No Drift for 10 Seconds + 0 6A: Test Left Leg Motor Drift - No Movement + 4 6B: Test Right Leg Motor Drift - No Drift for 5 Seconds + 0 7: Test Limb Ataxia (FNF/Heel-Love) - No Ataxia + 0 8: Test Sensation - Normal; No sensory loss + 0 9: Test Language/Aphasia - Normal; No aphasia + 0 10: Test Dysarthria - Normal + 0 11: Test Extinction/Inattention - No abnormality + 0 NIHSS Score: 8 Patient/Family was informed the Neurology Consult would happen via TeleHealth consult by way of interactive audio and video telecommunications and consented to receiving care in this manner. Due to the immediate potential for life-threatening deterioration due to underlying acute neurologic illness, I spent 35 minutes providing critical care. This time includes time for face to face visit via telemedicine, review of medical records, imaging studies and discussion of findings with providers, the patient and/or family. Dr Aki Delgado [facility] Case [id number] -: Gradual Time: 00:00 (see note) Last Observed Normal: 00:00 (see note) - Related Data Home Medications: Home Medications Medication Instructions Recorded Confirmed Last Taken ARIPiprazole [Abilify TAB] 15 mg PO DAILY 06/05/19 04/13/20 Unknown Albuterol Mdi (or & Nicu Only) 2 puff IH Q4H PRN 06/05/19 04/13/20 04/12/20 [ProAir HFA Inhaler] Aspirin [Adult Aspirin] 81 mg PO DAILY 06/05/19 04/13/20 04/13/20 12:17 Doxepin [SINEquan] 100 mg PO QHS 06/05/19 04/13/20 04/12/20 Fluticasone/Salmeterol(Nf) [Advair 2 puff IH BID 06/05/19 04/13/20 04/12/20 HFA 230-21 mcg] Furosemide [Lasix TAB] 40 mg PO QDAY 06/05/19 04/13/20 04/12/20 Insulin NPH Hum/Reg Insulin Hm 30 units SUB-Q QHS 06/05/19 04/13/20 Unknown [Novolin 70-30 Flexpen] Insulin NPH/Regular [NovoLIN 70/30] 20 units SUB-Q QAM 06/05/19 04/13/20 Unknown Ipratropium/Albuterol Sulfate 1 spray IH QID 06/05/19 04/13/20 Unknown [Combivent Respimat] Mirtazapine [Remeron 15mg TAB] 15 mg PO QHS 06/05/19 04/13/20 04/12/20 Oxycodone HCl/Acetaminophen 1 each PO Q6HR PRN 06/05/19 04/13/20 04/12/20 [Percocet 10/325 mg] Potassium Chloride [K-Dur] 20 meq PO QDAY 06/05/19 04/13/20 04/12/20 Rosuvastatin Calcium 40 mg PO QHS 06/05/19 04/13/20 Unknown busPIRone [Buspar] 10 mg PO BID 06/05/19 04/13/20 04/12/20 Nucynta 75 mg PO ONCE 04/13/20 04/13/20 04/12/20 Triumeq 600-50-300 mg Tablet 600 mg PO DAILY 04/14/20 04/14/20 04/12/20 Previous Rx's Medication Instructions Recorded Last Taken Type Clopidogrel [Plavix] 75 mg PO DAILY #30 tablet 05/10/19 04/12/20 Rx Dicyclomine [Bentyl] 10 mg PO QID #30 capsule 04/14/20 Unknown Rx Docusate Sodium [Colace] 100 mg PO BID PRN #30 capsule 04/14/20 Unknown Rx Metoprolol [Lopressor TAB] 100 mg PO BID #60 04/14/20 Unknown Rx Phenytoin [Dilantin] 300 mg PO QHS #90 04/14/20 Unknown Rx levETIRAcetam [Keppra TAB] 750 mg PO BID #90 tablet 04/14/20 Unknown Rx Allergies/Adverse Reactions: Allergies Allergy/AdvReac Type Severity Reaction Status Date / Time metoclopramide [From Reglan] Allergy Anaphylaxis Verified 05/08/19 16:45 prochlorperazine Allergy Anaphylaxis Verified 05/08/19 16:45 [From Compazine] promethazine [From Phenergan] Allergy Anaphylaxis Verified 05/08/19 16:45 ED Review of Systems ROS: Stated complaint: STROKE Other details as noted in HPI ED Past Medical Hx - Past Medical History Previous Medical History?: Yes Hx Hypertension: Yes Hx CVA: Yes (left sided weakness) Hx Heart Attack/AMI: Yes Hx Congestive Heart Failure: Yes Hx Diabetes: Yes Hx Seizures: Yes Hx Psychiatric Treatment: Yes (PTSD,depression) Hx Asthma: Yes Hx COPD: Yes Hx HIV: Yes Additional medical history: Cerebral palsy - Surgical History Additional Surgical History: CABG - Social History Smoking Status: Current Every Day Smoker Substance Use Type: None - Medications Home Medications: Home Medications Medication Instructions Recorded Confirmed Last Taken Type Clopidogrel [Plavix] 75 mg PO DAILY #30 tablet 05/10/19 04/13/20 04/12/20 Rx ARIPiprazole [Abilify TAB] 15 mg PO DAILY 06/05/19 04/13/20 Unknown History Albuterol Mdi (or & Nicu Only) 2 puff IH Q4H PRN 06/05/19 04/13/20 04/12/20 History [ProAir HFA Inhaler] Aspirin [Adult Aspirin] 81 mg PO DAILY 06/05/19 04/13/20 04/13/20 12:17 History Doxepin [SINEquan] 100 mg PO QHS 06/05/19 04/13/20 04/12/20 History Fluticasone/Salmeterol(Nf) [Advair 2 puff IH BID 06/05/19 04/13/20 04/12/20 History HFA 230-21 mcg] Furosemide [Lasix TAB] 40 mg PO QDAY 06/05/19 04/13/20 04/12/20 History Insulin NPH Hum/Reg Insulin Hm 30 units SUB-Q QHS 06/05/19 04/13/20 Unknown History [Novolin 70-30 Flexpen] Insulin NPH/Regular [NovoLIN 70/30] 20 units SUB-Q QAM 06/05/19 04/13/20 Unknown History Ipratropium/Albuterol Sulfate 1 spray IH QID 06/05/19 04/13/20 Unknown History [Combivent Respimat] Mirtazapine [Remeron 15mg TAB] 15 mg PO QHS 06/05/19 04/13/20 04/12/20 History Oxycodone HCl/Acetaminophen 1 each PO Q6HR PRN 06/05/19 04/13/20 04/12/20 History [Percocet 10/325 mg] Potassium Chloride [K-Dur] 20 meq PO QDAY 06/05/19 04/13/20 04/12/20 History Rosuvastatin Calcium 40 mg PO QHS 06/05/19 04/13/20 Unknown History busPIRone [Buspar] 10 mg PO BID 06/05/19 04/13/20 04/12/20 History Nucynta 75 mg PO ONCE 04/13/20 04/13/20 04/12/20 History Dicyclomine [Bentyl] 10 mg PO QID #30 capsule 04/14/20 Unknown Rx Docusate Sodium [Colace] 100 mg PO BID PRN #30 capsule 04/14/20 Unknown Rx Metoprolol [Lopressor TAB] 100 mg PO BID #60 04/14/20 Unknown Rx Phenytoin [Dilantin] 300 mg PO QHS #90 04/14/20 Unknown Rx Triumeq 600-50-300 mg Tablet 600 mg PO DAILY 04/14/20 04/14/20 04/12/20 History levETIRAcetam [Keppra TAB] 750 mg PO BID #90 tablet 04/14/20 Unknown Rx ED Neuro Physical Exam - General Limitations: Physical Limitation General appearance: alert, in no apparent distress Suspected Stroke: Yes (maybe - could be sz) - Neurological Exam Neurological exam: Present: oriented X3 - NIHSS 1a. Level of Consciousness: alert/keenly responsive 1b. LOC Questions: answers no questions correctly 1c. LOC Commands: performs tasks correctly 2. Best Gaze: normal 3. Visual: no visual loss 4. Facial Palsy: normal symmetrical movement 5b. Motor Arm Right: no drift 5a. Motor Arm Left: no movement 6a. Motor Leg Left: no movement 6b. Motor Leg Right: no drift 7. Limb Ataxia: absent 8. Sensory: normal 9. Best Language: no aphasia 10. Dysarthria: normal 11. Extinction/Inattention: no abnormality Total Score: 10 Stroke Severity: Moderate Stroke ED Course Vital Signs 07/03/20 07/03/20 07/03/20 15:30 16:00 16:30 Temperature 98 F Pulse Rate 90 91 H 86 Respiratory 18 24 16 Rate Blood Pressure 131/80 128/82 130/85 O2 Sat by Pulse 100 99 98 Oximetry 07/03/20 07/03/20 07/03/20 17:00 17:40 17:50 Temperature Pulse Rate 86 92 H 91 H Respiratory 21 18 21 Rate Blood Pressure 136/87 136/87 136/87 O2 Sat by Pulse 99 97 95 Oximetry 07/03/20 07/03/20 07/03/20 18:00 18:10 18:20 Temperature Pulse Rate 90 89 83 Respiratory 19 21 22 Rate Blood Pressure 126/68 126/68 136/87 O2 Sat by Pulse 98 97 96 Oximetry 07/03/20 18:41 Temperature 98.1 F Pulse Rate 97 H Respiratory 22 Rate Blood Pressure 115/67 O2 Sat by Pulse 95 Oximetry - Lab Data Result diagrams: 07/03/20 15:15 07/03/20 15:15 Lab Results 07/03/20 07/03/20 07/03/20 Range/Units 15:15 15:15 15:15 WBC 3.6 L (4.5-11.0) K/mm3 RBC 4.50 (3.65-5.03) M/mm3 Hgb 14.5 (11.8-15.2) gm/dl Hct 40.9 (35.5-45.6) % MCV 91 (84-94) fl MCH 32 (28-32) pg MCHC 35 H (32-34) % RDW 13.6 (13.2-15.2) % Plt Count 178 (140-440) K/mm3 Harrison % (Auto) Precision Grinder Add Manual Diff Complete Total Counted 100 Seg Neuts % (Manual) 44.0 (40.0-70.0) % Band Neutrophils % 0 % Lymphocytes % (Manual) 38.0 H (13.4-35.0) % Reactive Lymphs % (Man) 0 % Monocytes % (Manual) 16.0 H (0.0-7.3) % Eosinophils % (Manual) 1.0 (0.0-4.3) % Basophils % (Manual) 1.0 (0.0-1.8) % Metamyelocytes % 0 % Myelocytes % 0 % Promyelocytes % 0 % Blast Cells % 0 % Nucleated RBC % Not Reportable Seg Neutrophils # Man 1.6 L (1.8-7.7) K/mm3 Band Neutrophils # 0.0 K/mm3 Lymphocytes # (Manual) 1.4 (1.2-5.4) K/mm3 Abs React Lymphs (Man) 0.0 K/mm3 Monocytes # (Manual) 0.6 (0.0-0.8) K/mm3 Eosinophils # (Manual) 0.0 (0.0-0.4) K/mm3 Basophils # (Manual) 0.0 (0.0-0.1) K/mm3 Metamyelocytes # 0.0 K/mm3 Myelocytes # 0.0 K/mm3 Promyelocytes # 0.0 K/mm3 Blast Cells # 0.0 K/mm3 WBC Morphology Not Reportable Hypersegmented Neuts Not Reportable Hyposegmented Neuts Not Reportable Hypogranular Neuts Not Reportable Smudge Cells Not Reportable Toxic Granulation Not Reportable Toxic Vacuolation Not Reportable Dohle Bodies Not Reportable Pelger-Huet Anomaly Not Reportable Michael Rods Not Reportable Platelet Estimate Not Reportable Clumped Platelets Not Reportable Plt Clumps, EDTA Not Reportable Large Platelets Not Reportable Giant Platelets Not Reportable Platelet Satelliting Not Reportable Plt Morphology Comment Not Reportable RBC Morphology Normal Dimorphic RBCs Not Reportable Polychromasia Not Reportable Hypochromasia Not Reportable Poikilocytosis Not Reportable Anisocytosis Not Reportable Microcytosis Not Reportable Macrocytosis Not Reportable Spherocytes Not Reportable Pappenheimer Bodies Not Reportable Sickle Cells Not Reportable Target Cells Not Reportable Tear Drop Cells Not Reportable Ovalocytes Not Reportable Helmet Cells Not Reportable Lowe-Tyro Bodies Not Reportable Salley Rings Not Reportable Silverpeak Cells Not Reportable Bite Cells Not Reportable Crenated Cell Not Reportable Elliptocytes Not Reportable Acanthocytes (Spur) Not Reportable Rouleaux Not Reportable Hemoglobin C Crystals Not Reportable Schistocytes Not Reportable Malaria parasites Not Reportable Kirill Bodies Not Reportable Hem Pathologist Commnt No PT 11.9 L (12.2-14.9) Sec. INR 0.86 L (0.87-1.13) APTT 28.1 (24.2-36.6) Sec. Thrombin Time (15.1-19.6) Sec. Sodium 140 (137-145) mmol/L Potassium 4.3 (3.6-5.0) mmol/L Chloride 103.8 (98-107) mmol/L Carbon Dioxide 23 (22-30) mmol/L Anion Gap 18 mmol/L BUN 16 (9-20) mg/dL Creatinine 0.8 (0.8-1.3) mg/dL Estimated GFR > 60 ml/min BUN/Creatinine Ratio 20 % Glucose 86 (75-100) mg/dL POC Glucose (70-105) Calcium 8.8 (8.4-10.2) mg/dL Troponin T < 0.010 (0.00-0.029) ng/mL 07/03/20 07/03/20 Range/Units 15:15 15:55 WBC (4.5-11.0) K/mm3 RBC (3.65-5.03) M/mm3 Hgb (11.8-15.2) gm/dl Hct (35.5-45.6) % MCV (84-94) fl MCH (28-32) pg MCHC (32-34) % RDW (13.2-15.2) % Plt Count (140-440) K/mm3 Harrison % (Auto) Add Manual Diff Total Counted Seg Neuts % (Manual) (40.0-70.0) % Band Neutrophils % % Lymphocytes % (Manual) (13.4-35.0) % Reactive Lymphs % (Man) % Monocytes % (Manual) (0.0-7.3) % Eosinophils % (Manual) (0.0-4.3) % Basophils % (Manual) (0.0-1.8) % Metamyelocytes % % Myelocytes % % Promyelocytes % % Blast Cells % % Nucleated RBC % Seg Neutrophils # Man (1.8-7.7) K/mm3 Band Neutrophils # K/mm3 Lymphocytes # (Manual) (1.2-5.4) K/mm3 Abs React Lymphs (Man) K/mm3 Monocytes # (Manual) (0.0-0.8) K/mm3 Eosinophils # (Manual) (0.0-0.4) K/mm3 Basophils # (Manual) (0.0-0.1) K/mm3 Metamyelocytes # K/mm3 Myelocytes # K/mm3 Promyelocytes # K/mm3 Blast Cells # K/mm3 WBC Morphology Hypersegmented Neuts Hyposegmented Neuts Hypogranular Neuts Smudge Cells Toxic Granulation Toxic Vacuolation Dohle Bodies Pelger-Huet Anomaly Michael Rods Platelet Estimate Clumped Platelets Plt Clumps, EDTA Large Platelets Giant Platelets Platelet Satelliting Plt Morphology Comment RBC Morphology Dimorphic RBCs Polychromasia Hypochromasia Poikilocytosis Anisocytosis Microcytosis Macrocytosis Spherocytes Pappenheimer Bodies Sickle Cells Target Cells Tear Drop Cells Ovalocytes Helmet Cells Lowe-Tyro Bodies Salley Rings Silverpeak Cells Bite Cells Crenated Cell Elliptocytes Acanthocytes (Spur) Rouleaux Hemoglobin C Crystals Schistocytes Malaria parasites Kirill Bodies Hem Pathologist Commnt PT (12.2-14.9) Sec. INR (0.87-1.13) APTT (24.2-36.6) Sec. Thrombin Time 18.1 (15.1-19.6) Sec. Sodium (137-145) mmol/L Potassium (3.6-5.0) mmol/L Chloride (98-107) mmol/L Carbon Dioxide (22-30) mmol/L Anion Gap mmol/L BUN (9-20) mg/dL Creatinine (0.8-1.3) mg/dL Estimated GFR ml/min BUN/Creatinine Ratio % Glucose (75-100) mg/dL POC Glucose 88 (70-105) Calcium (8.4-10.2) mg/dL Troponin T (0.00-0.029) ng/mL Critical care attestation.: If time is entered above; I have spent that time in minutes in the direct care of this critically ill patient, excluding procedure time. ED Disposition Clinical Impression: Hx of CABG, Acute CVA (cerebrovascular accident) Disposition: 09 OP ADMIT IP TO THIS HOSP Is pt being admited?: Yes Does the pt Need Aspirin: Yes (see note) Condition: Stable Referrals: ELIZABETH PICKERING MD [Primary Care Provider] - 3-5 Days
[2020-07-04 09:17] LABS: Chol/HDL Ratio 3.78 %
[2020-07-04] MEDS: ASPIRIN 325 MG TAB PO SCH (09:44)
--- NOTE | 2020-07-04 11:02 | Progress Note ---
<AILEEN RUSHING - Last Filed: 07/04/20 12:06> Assessment and Plan - Patient Problems (1) CVA (cerebral vascular accident) Current Visit: No Status: Acute Qualifiers: Precerebral and cerebral artery: middle cerebral artery Laterality of affected vessel: right Plan to address problem: CVA protocol: CT head, neuro check, seizure precaution, fall precautions, ph ysical therapy consulted, Occupational Therapy consulted, speech therapy consulted, dual antiplatelet therapy, CTA of the head and neck, carotid Doppler, echocardiogram from 01/18 reviewed, carotid Doppler from 06/19 reviewed. (2) CAD (coronary artery disease) Current Visit: Yes Status: Acute Qualifiers: Associated angina: without angina Plan to address problem: Statin therapy, low-cholesterol diet, smoking cessation, risk factor reduction therapy. (3) Nicotine dependence Current Visit: Yes Status: Acute Qualifiers: Nicotine product type: cigarettes Substance use status: in withdrawal Qualified Code(s): F17.213 - Nicotine dependence, cigarettes, with withdrawal Plan to address problem: smoking cessation counseling. (4) HIV disease Current Visit: Yes Status: Acute Plan to address problem: Continue current therapy, outpatient infectious disease service follow-up. (5) Chronic pain syndrome Current Visit: Yes Status: Acute Plan to address problem: Continue pain management, supportive care. Pain assessment as per nursing care routine. (6) Seizure disorder Current Visit: Yes Status: Acute Plan to address problem: Seizure precautions, continue Keppra, neurochecks. (7) DVT prophylaxis Current Visit: No Status: Acute Plan to address problem: SCD to bilateral lower extremities while in bed, patient is ambulatory Subjective Date of service: 07/04/20 Principal diagnosis: Stroke Interval history: Patient seen at bedside. patient left side weakness CT of the head negative. Reviewed lab, mar, and v/s patient appears stable-possible d/c tomorrow Objective - Constitutional Vitals: Vital Signs - 12hr 07/04/20 07/04/20 05:02 08:07 Temperature 98.3 F Pulse Rate 95 H Respiratory 18 Rate Blood Pressure 126/79 O2 Sat by Pulse 94 95 Oximetry General appearance: Present: no acute distress, well-nourished - EENT Eyes: PERRL, EOM intact ENT: hearing intact, clear oral mucosa Ears: bilateral: normal - Neck Neck: supple, normal ROM - Respiratory Respiratory effort: normal Respiratory: bilateral: CTA - Breasts Breasts: normal - Cardiovascular Heart rate: 74 Rhythm: regular Heart Sounds: Present: S1 & S2. Absent: gallop, rub Extremities: pulses intact, No edema, normal color, Full ROM - Gastrointestinal General gastrointestinal: Present: soft, non-tender, non-distended, normal bowel sounds - Genitourinary Male genitourinary: normal - Integumentary Integumentary: clear, warm, dry - Musculoskeletal Musculoskeletal: left sided weakness - Neurologic Neurologic: moves all extremities - Psychiatric Psychiatric: memory intact, appropriate mood/affect, intact judgment & insight - Allied health notes Allied health notes reviewed: nursing - Labs CBC & Chem 7: 07/03/20 15:15 07/03/20 15:15 Labs: Abnormal lab results 07/03/20 07/03/20 07/04/20 Range/Units 15:15 15:15 07:56 WBC 3.6 L (4.5-11.0) K/mm3 MCHC 35 H (32-34) % Lymphocytes % (Manual) 38.0 H (13.4-35.0) % Monocytes % (Manual) 16.0 H (0.0-7.3) % Seg Neutrophils # Man 1.6 L (1.8-7.7) K/mm3 PT 11.9 L (12.2-14.9) Sec. INR 0.86 L (0.87-1.13) HDL Cholesterol 37 L (40-59) mg/dL HEART Score - HEART Score Troponin: Troponin T < 0.010 ng/mL (0.00-0.029) 07/03/20 15:15 <JUWAN BROWN R - Last Filed: 07/05/20 09:33> Assessment and Plan I saw and evaluated the patient. I agree with the findings and the plan of care as documented in the Nurse Practitioner's~note, with the following corrections and additions. patient presented to hospital multiple times prior with similar complaint. he states that he cannot ambulate. Will wait for PT eval. Objective - Constitutional Vitals: Vital Signs - 12hr 07/04/20 07/04/20 07/05/20 23:11 23:35 05:10 Temperature 98.5 F Pulse Rate 88 Respiratory 22 20 Rate Blood Pressure 124/77 147/81 O2 Sat by Pulse 94 96 Oximetry - Labs CBC & Chem 7: 07/03/20 15:15 07/03/20 15:15 HEART Score - HEART Score Troponin: Troponin T < 0.010 ng/mL (0.00-0.029) 07/03/20 15:15
[2020-07-04] MEDS ORDERED: MORPHINE 2 MG/1 ML INJ IV ONE (22:35)
[2020-07-04] MEDS ORDERED: LORazepam 1 MG TAB PO PRN (23:12)
[2020-07-04] MEDS ORDERED: LORazepam 2 MG/ML VIAL IV PRN (23:16)
[2020-07-05] MEDS ORDERED: ALBUTEROL 8.5 GM MDI INHALATION IH PRN (09:19)
[2020-07-05] MEDS ORDERED: DOCUSATE SODIUM 100 MG CAP PO PRN (09:19)
[2020-07-05] MEDS ORDERED: NON-FORMULARY EACH (Oxycodone Hcl/Acetaminophen [Percocet 10/325 Mg] 1 EACH) PO PRN (09:19)
[2020-07-05] MEDS: ASPIRIN 325 MG TAB PO SCH (09:20)
[2020-07-05] MEDS ORDERED: NUCYNTA 75 MG PO SCH (09:30)
[2020-07-05] MEDS ORDERED: ALBUTEROL 2.5 MG/3 ML NEBU IH PRN (09:34)
[2020-07-05] MEDS ORDERED: SALMETEROL IH SCH (10:00)
[2020-07-05] MEDS ORDERED: TRIUMEQ PO SCH (10:00)
[2020-07-05] MEDS ORDERED: FLUTICASONE IH SCH (10:00)
[2020-07-05] MEDS: DICYCLOMINE 10 MG CAP PO SCH ×4 (10:16→21:17)
[2020-07-05] MEDS: ARIPiprazole 15 MG TAB PO SCH (10:16)
[2020-07-05] MEDS: POTASSIUM CHLORIDE ER 20 MEQ TAB PO SCH (10:17)
[2020-07-05] MEDS: CLOPIDOGREL 75 MG TAB PO SCH (10:17)
[2020-07-05] MEDS: FUROSEMIDE 40 MG TAB PO SCH (10:17)
[2020-07-05] MEDS: levETIRAcetam 500 MG TAB PO SCH ×2 (10:17→21:16)
[2020-07-05] MEDS: METOPROLOL TARTRATE 100 MG TAB PO SCH ×3 (10:17→21:15)
[2020-07-05] MEDS: oxyCODONE 5 MG TAB PO PRN ×2 (10:21→16:40)
[2020-07-05] MEDS: ASPIRIN EC 81 MG TAB PO SCH (10:22)
[2020-07-05] MEDS: oxyCODONE /ACETAMINOPHEN 5-325MG TAB PO PRN ×2 (10:22→16:40)
[2020-07-05] MEDS: busPIRone 10 MG TAB PO SCH ×2 (12:31→21:17)
[2020-07-05] MEDS: ABACAVIR 300 MG TAB PO SCH (12:31)
[2020-07-05] MEDS: DOLUTEGRAVIR 50 MG TAB PO SCH (12:31)
[2020-07-05] MEDS: INSULIN NPH/REGULAR 70/30 INJ SUB-Q SCH (12:35)
[2020-07-05] MEDS: ARFORMOTEROL 15 MCG/2 ML NEBU IH SCH ×2 (14:06→19:49)
[2020-07-05] MEDS: BUDESONIDE 0.5 MG/2 ML NEBU IH SCH ×2 (14:06→19:49)
--- NOTE | 2020-07-05 15:29 | Progress Note ---
Assessment and Plan -- CVA (cerebral vascular accident) Has h/o CVA with left sided weakness CVA protocol: CT head, neuro check, seizure precaution, fall precautions, physical therapy consulted, Occupational Therapy consulted, speech therapy consulted, dual antiplatelet therapy, CTA of the head and neck, carotid Doppler, echocardiogram from 01/18 reviewed, carotid Doppler from 06/19 reviewed. Had multiple MRI in recent past showing no new changes, he was recommended acute rehab during last admission but was discharged home with PT now recommending [facility] - sent referrals -- CAD (coronary artery disease) Statin therapy, low-cholesterol diet, smoking cessation, risk factor reduction therapy. -- Nicotine dependence smoking cessation counseling. -- HIV disease Continue current therapy, outpatient infectious disease service follow-up. -- Chronic pain syndrome Continue pain management, supportive care. Pain assessment as per nursing care routine. -- Seizure disorder Seizure precautions, continue Keppra, neurochecks. -- DVT prophylaxis SCD to bilateral lower extremities while in bed, patient is ambulatory -- disposition: pending placement to [facility] Subjective Date of service: 07/05/20 Principal diagnosis: Stroke Interval history: Patient seen and examined c/o left sided weakness and generalized pain tolerating diet Objective - Constitutional Vitals: Vital Signs - 12hr 07/05/20 07/05/20 05:10 11:46 Temperature 98.5 F 97.7 F Pulse Rate 88 75 Respiratory 20 18 Rate Blood Pressure 147/81 116/76 O2 Sat by Pulse 96 95 Oximetry General appearance: Present: no acute distress, well-nourished - EENT Eyes: PERRL, EOM intact ENT: hearing intact, clear oral mucosa Ears: bilateral: normal - Neck Neck: supple, normal ROM - Respiratory Respiratory effort: normal Respiratory: bilateral: CTA - Breasts Breasts: normal - Cardiovascular Rhythm: regular Heart Sounds: Present: S1 & S2. Absent: gallop, rub Extremities: pulses intact, No edema, normal color, Full ROM - Gastrointestinal General gastrointestinal: Present: soft, non-tender, non-distended, normal bowel sounds - Genitourinary Male genitourinary: normal - Integumentary Integumentary: clear, warm, dry - Musculoskeletal Musculoskeletal: left sided weakness - Neurologic Neurologic: CNII-XII intact - Psychiatric Psychiatric: memory intact, appropriate mood/affect, intact judgment & insight - Labs CBC & Chem 7: 07/03/20 15:15 07/03/20 15:15 Labs: Abnormal lab results 07/05/20 Range/Units 12:07 POC Glucose 61 L (70-105) HEART Score - HEART Score Troponin: Troponin T < 0.010 ng/mL (0.00-0.029) 07/03/20 15:15
[2020-07-05] MEDS: PHENYTOIN 100 MG CAPSULE.ER PO SCH (21:11)
[2020-07-05] MEDS: MIRTAZAPINE 15 MG TAB PO SCH (21:16)
[2020-07-05] MEDS: DOXEPIN 100 MG CAP PO SCH (21:17)
[2020-07-05] MEDS ORDERED: NON-FORMULARY EACH (Rosuvastatin Calcium [Rosuvastatin Calcium] 40 MG) PO SCH (22:00)
[2020-07-06] MEDS: oxyCODONE /ACETAMINOPHEN 5-325MG TAB PO PRN ×3 (07:57→23:09)
[2020-07-06] MEDS: oxyCODONE 5 MG TAB PO PRN ×3 (07:57→23:09)
[2020-07-06] MEDS: BUDESONIDE 0.5 MG/2 ML NEBU IH SCH ×2 (08:05→21:01)
[2020-07-06] MEDS: ARFORMOTEROL 15 MCG/2 ML NEBU IH SCH ×2 (08:05→21:00)
[2020-07-06] MEDS: POTASSIUM CHLORIDE ER 20 MEQ TAB PO SCH (09:16)
[2020-07-06] MEDS: levETIRAcetam 500 MG TAB PO SCH ×2 (09:16→23:06)
[2020-07-06] MEDS: ASPIRIN EC 81 MG TAB PO SCH (09:16)
[2020-07-06] MEDS: ABACAVIR 300 MG TAB PO SCH (09:17)
[2020-07-06] MEDS: METOPROLOL TARTRATE 100 MG TAB PO SCH ×2 (09:17→23:09)
[2020-07-06] MEDS: DICYCLOMINE 10 MG CAP PO SCH ×4 (09:17→23:10)
[2020-07-06] MEDS: CLOPIDOGREL 75 MG TAB PO SCH (09:17)
[2020-07-06] MEDS: FUROSEMIDE 40 MG TAB PO SCH (09:17)
[2020-07-06] MEDS: DOLUTEGRAVIR 50 MG TAB PO SCH (09:17)
[2020-07-06] MEDS: ARIPiprazole 15 MG TAB PO SCH (09:18)
[2020-07-06] MEDS: busPIRone 10 MG TAB PO SCH ×2 (09:18→23:08)
[2020-07-06] MEDS: INSULIN NPH/REGULAR 70/30 INJ SUB-Q SCH (09:23)
--- NOTE | 2020-07-06 15:03 | Progress Note ---
Assessment and Plan -- CVA (cerebral vascular accident) Has h/o CVA with left sided weakness CVA protocol: CT head, neuro check, seizure precaution, fall precautions, physical therapy consulted, Occupational Therapy consulted, speech therapy consulted, dual antiplatelet therapy, CTA of the head and neck, carotid Doppler, echocardiogram from 01/18 reviewed, carotid Doppler from 06/19 reviewed. Had multiple MRI in recent past showing no new changes, he was recommended acute rehab during last admission but was discharged home with PT now recommending [facility] - sent referrals -- CAD (coronary artery disease) Statin therapy, low-cholesterol diet, smoking cessation, risk factor reduction therapy. -- Nicotine dependence smoking cessation counseling. -- HIV disease Continue current therapy, outpatient infectious disease service follow-up. -- Chronic pain syndrome Continue pain management, supportive care. Pain assessment as per nursing care routine. -- Seizure disorder Seizure precautions, continue Keppra, neurochecks. -- DVT prophylaxis SCD to bilateral lower extremities while in bed, patient is ambulatory -- disposition: pending placement to [facility], patient need insurance authorization Subjective Date of service: 07/06/20 Principal diagnosis: Stroke Interval history: Patient seen and examined c/o left sided weakness and generalized pain tolerating diet Objective - Exam Narrative Exam: General appearance: Present: no acute distress, well-nourished - EENT Eyes: PERRL, EOM intact ENT: hearing intact, clear oral mucosa Ears: bilateral: normal - Neck Neck: supple, normal ROM - Respiratory Respiratory effort: normal Respiratory: bilateral: CTA - Breasts Breasts: normal - Cardiovascular Rhythm: regular Heart Sounds: Present: S1 & S2. Absent: gallop, rub Extremities: pulses intact, No edema, normal color, Full ROM - Gastrointestinal General gastrointestinal: Present: soft, non-tender, non-distended, normal bowel sounds - Genitourinary Male genitourinary: normal - Integumentary Integumentary: clear, warm, dry - Musculoskeletal Musculoskeletal: left sided weakness - Neurologic Neurologic: CNII-XII intact - Psychiatric Psychiatric: memory intact, appropriate mood/affect, intact judgment & insight - Constitutional Vitals: Vital Signs - 12hr 07/06/20 07/06/20 07/06/20 04:23 04:28 08:05 Temperature 97.4 F L 97.4 F L Pulse Rate 60 Pulse Rate [ 73 Bilateral] Respiratory 18 18 Rate Respiratory 18 Rate [Bilateral ] Blood Pressure 126/71 O2 Sat by Pulse 96 Oximetry 07/06/20 11:49 Temperature 98.1 F Pulse Rate 56 L Pulse Rate [ Bilateral] Respiratory 20 Rate Respiratory Rate [Bilateral ] Blood Pressure 97/62 O2 Sat by Pulse 96 Oximetry - Labs CBC & Chem 7: 07/03/20 15:15 07/03/20 15:15 HEART Score - HEART Score Troponin: Troponin T < 0.010 ng/mL (0.00-0.029) 07/03/20 15:15
[2020-07-06] MEDS: PHENYTOIN 100 MG CAPSULE.ER PO SCH (23:07)
[2020-07-06] MEDS: MIRTAZAPINE 15 MG TAB PO SCH (23:09)
[2020-07-06] MEDS: DOXEPIN 100 MG CAP PO SCH (23:10)
[2020-07-07] MEDS: oxyCODONE /ACETAMINOPHEN 5-325MG TAB PO PRN (05:40)
[2020-07-07] MEDS: oxyCODONE 5 MG TAB PO PRN ×2 (05:41→22:01)
[2020-07-07] MEDS: ARFORMOTEROL 15 MCG/2 ML NEBU IH SCH ×2 (07:27→20:30)
[2020-07-07] MEDS: BUDESONIDE 0.5 MG/2 ML NEBU IH SCH ×2 (07:27→20:30)
[2020-07-07] MEDS: INSULIN NPH/REGULAR 70/30 INJ SUB-Q SCH (09:14)
[2020-07-07] MEDS: busPIRone 10 MG TAB PO SCH ×2 (09:15→22:17)
[2020-07-07] MEDS: ASPIRIN EC 81 MG TAB PO SCH (09:15)
[2020-07-07] MEDS: ARIPiprazole 15 MG TAB PO SCH (09:16)
[2020-07-07] MEDS: DICYCLOMINE 10 MG CAP PO SCH ×4 (09:16→22:17)
[2020-07-07] MEDS: DOLUTEGRAVIR 50 MG TAB PO SCH (09:17)
[2020-07-07] MEDS: ABACAVIR 300 MG TAB PO SCH (09:18)
[2020-07-07] MEDS: METOPROLOL TARTRATE 100 MG TAB PO SCH (09:19)
[2020-07-07] MEDS: FUROSEMIDE 40 MG TAB PO SCH (09:19)
[2020-07-07] MEDS: CLOPIDOGREL 75 MG TAB PO SCH (09:20)
[2020-07-07] MEDS: POTASSIUM CHLORIDE ER 20 MEQ TAB PO SCH (09:20)
[2020-07-07] MEDS: levETIRAcetam 500 MG TAB PO SCH ×2 (09:33→22:10)
--- NOTE | 2020-07-07 10:14 | Discharge Summary ---
Providers - Providers Date of Admission: 07/05/20 14:03 Date of discharge: 07/07/20 Attending physician: JUWAN BROWN 07/03/20 16:44 Speech Therapy Evaluation and Treat [CONS] Routine Reason For Exam: cva 07/03/20 16:46 Occupational Therapy Evaluate and Treat [CONS] Routine Comment: Reason For Exam: Neuro deficits Physical Therapy Evaluation and Treat [CONS] Routine Comment: Reason For Exam: Neuro deficits 07/03/20 16:47 Speech Therapy Evaluation and Treat [CONS] Routine Reason For Exam: swallow eval [facility]: Stable Disposition: DC/[place]-70 ANOTHER [facility] Time spent for discharge: 34 minutes Core Measure Documentation - Palliative Care Palliative Care/ Comfort Measures: Not Applicable - Core Measures Any of the following diagnoses?: none Exam - Constitutional Vitals: Temp Pulse Resp BP Pulse Ox 98.0 F 89 18 107/76 97 07/07/20 04:15 07/07/20 07:29 07/07/20 07:29 07/07/20 04:15 07/06/20 20:33 Plan Activity: fall precautions Weight Bearing Status: Weight Bear as Tolerated Diet: low fat, low salt [facility] [Primary Care Provider] - 3-5 Days Prescriptions: Oxycodone HCl/Acetaminophen [Percocet 10/325 mg] 1 each PO Q6HR PRN #10 PRN Reason: Pain
[2020-07-07] MEDS: PHENYTOIN 100 MG CAPSULE.ER PO SCH (22:13)
[2020-07-07] MEDS: DOXEPIN 100 MG CAP PO SCH ×2 (22:16→22:29)
[2020-07-08] MEDS: METOPROLOL TARTRATE 100 MG TAB PO SCH ×3 (00:05→21:20)
[2020-07-08] MEDS: MIRTAZAPINE 15 MG TAB PO SCH ×2 (04:48→21:19)
--- NOTE | 2020-07-08 06:17 | Progress Note ---
Assessment and Plan -- CVA (cerebral vascular accident) Has h/o CVA with left sided weakness CVA protocol: CT head, neuro check, seizure precaution, fall precautions, physical therapy consulted, Occupational Therapy consulted, speech therapy consulted, dual antiplatelet therapy, CTA of the head and neck, carotid Doppler, echocardiogram from 01/18 reviewed, carotid Doppler from 06/19 reviewed. Had multiple MRI in recent past showing no new changes, he was recommended acute rehab during last admission but was discharged home with PT now recommending [facility] - sent referrals -- CAD (coronary artery disease) Statin therapy, low-cholesterol diet, smoking cessation, risk factor reduction therapy. -- Nicotine dependence smoking cessation counseling. -- HIV disease Continue current therapy, outpatient infectious disease service follow-up. -- Chronic pain syndrome Continue pain management, supportive care. Pain assessment as per nursing care routine. -- Seizure disorder Seizure precautions, continue Keppra, neurochecks. -- DVT prophylaxis SCD to bilateral lower extremities while in bed, patient is ambulatory -- disposition: pending placement to [facility], patient need insurance authorization Subjective Date of service: 07/07/20 Principal diagnosis: Stroke Interval history: Patient seen and examined c/o left sided weakness and generalized pain tolerating diet Objective - Exam Narrative Exam: General appearance: Present: no acute distress, well-nourished - EENT Eyes: PERRL, EOM intact ENT: hearing intact, clear oral mucosa Ears: bilateral: normal - Neck Neck: supple, normal ROM - Respiratory Respiratory effort: normal Respiratory: bilateral: CTA - Breasts Breasts: normal - Cardiovascular Rhythm: regular Heart Sounds: Present: S1 & S2. Absent: gallop, rub Extremities: pulses intact, No edema, normal color, Full ROM - Gastrointestinal General gastrointestinal: Present: soft, non-tender, non-distended, normal bowel sounds - Genitourinary Male genitourinary: normal - Integumentary Integumentary: clear, warm, dry - Musculoskeletal Musculoskeletal: left sided weakness - Neurologic Neurologic: CNII-XII intact - Psychiatric Psychiatric: memory intact, appropriate mood/affect, intact judgment & insight - Constitutional Vitals: Vital Signs - 12hr 07/07/20 07/07/20 07/07/20 20:33 22:01 22:16 Temperature 97.4 F L Pulse Rate 72 Pulse Rate [ 68 Bilateral] Pulse Rate [ 65 Posterior Bilateral Throughout] Respiratory 18 19 Rate Respiratory 18 Rate [Bilateral ] Respiratory 18 Rate [Posterior Bilateral Throughout] Blood Pressure 98/62 O2 Sat by Pulse 98 Oximetry 07/08/20 00:05 Temperature Pulse Rate 72 Pulse Rate [ Bilateral] Pulse Rate [ Posterior Bilateral Throughout] Respiratory Rate Respiratory Rate [Bilateral ] Respiratory Rate [Posterior Bilateral Throughout] Blood Pressure 98/62 O2 Sat by Pulse Oximetry - Labs CBC & Chem 7: 07/03/20 15:15 07/03/20 15:15 HEART Score - HEART Score Troponin: Troponin T < 0.010 ng/mL (0.00-0.029) 07/03/20 15:15
--- NOTE | 2020-07-08 08:22 | Progress Note ---
Assessment and Plan Assessment and plan: -- CVA (cerebral vascular accident) Has h/o CVA with left sided weakness CVA protocol: CT head, neuro check, seizure precaution, fall precautions, physical therapy consulted, Occupational Therapy consulted, speech therapy consulted, dual antiplatelet therapy, CTA of the head and neck, carotid Doppler, echocardiogram from 01/18 reviewed, carotid Doppler from 06/19 reviewed. Had multiple MRI in recent past showing no new changes, he was recommended acute rehab during last admission but was discharged home with PT now recommending [facility] sent referrals -- CAD (coronary artery disease) Statin therapy, low-cholesterol diet, smoking cessation, risk factor reduction therapy. -- Nicotine dependence smoking cessation counseling. -- HIV disease Continue current therapy, outpatient infectious disease service follow-up. -- Chronic pain syndrome Continue pain management, supportive care. Pain assessment as per nursing care routine. -- Seizure disorder Seizure precautions, continue Keppra, neurochecks. -- DVT prophylaxis SCD to bilateral lower extremities while in bed, patient is ambulatory -- disposition: pending placement to [facility], patient need insurance authorization History Interval history: Patient was seen and evaluated this morning Patient was working with PT by the time I saw him No new complaints Hospitalist Physical - Physical exam Narrative exam: Not in cardiopulmonary distress. The patient appeared well nourished and normally developed. Vital signs as documented. Head exam is unremarkable. No scleral icterus . Neck is without jugular venous distension, thyromegaly, or carotid bruits. Lungs are clear to auscultation. Cardiac exam reveals regular rate and Rhythm. Abdominal exam reveals normal bowel sounds, nontender, no organomegaly. Extremities are nonedematous and both femoral and pedal pulses are normal. MSWS: Alert and oriented 3. Left-sided weakness. - Constitutional Vitals: Temp Pulse Resp BP Pulse Ox 97.4 F L 72 19 98/62 98 07/07/20 22:16 07/08/20 00:05 07/07/20 22:16 07/08/20 00:05 07/07/20 22:16 General appearance: Present: no acute distress, well-nourished HEART Score - HEART Score Troponin: Troponin T < 0.010 ng/mL (0.00-0.029) 07/03/20 15:15 Results - Labs CBC & Chem 7: 07/03/20 15:15 07/03/20 15:15 Labs: Laboratory Last Values WBC 3.6 K/mm3 (4.5-11.0) L 07/03/20 15:15 RBC 4.50 M/mm3 (3.65-5.03) 07/03/20 15:15 Hgb 14.5 gm/dl (11.8-15.2) 07/03/20 15:15 Hct 40.9 % (35.5-45.6) 07/03/20 15:15 MCV 91 fl (84-94) 07/03/20 15:15 MCH 32 pg (28-32) 07/03/20 15:15 MCHC 35 % (32-34) H 07/03/20 15:15 RDW 13.6 % (13.2-15.2) 07/03/20 15:15 Plt Count 178 K/mm3 (140-440) 07/03/20 15:15 Dixon % (Auto) Communication Coordinator 07/03/20 15:15 Add Manual Diff Complete 07/03/20 15:15 Total Counted 100 07/03/20 15:15 Seg Neuts % (Manual) 44.0 % (40.0-70.0) 07/03/20 15:15 Band Neutrophils % 0 % 07/03/20 15:15 Lymphocytes % (Manual) 38.0 % (13.4-35.0) H 07/03/20 15:15 Reactive Lymphs % (Man) 0 % 07/03/20 15:15 Monocytes % (Manual) 16.0 % (0.0-7.3) H 07/03/20 15:15 Eosinophils % (Manual) 1.0 % (0.0-4.3) 07/03/20 15:15 Basophils % (Manual) 1.0 % (0.0-1.8) 07/03/20 15:15 Metamyelocytes % 0 % 07/03/20 15:15 Myelocytes % 0 % 07/03/20 15:15 Promyelocytes % 0 % 07/03/20 15:15 Blast Cells % 0 % 07/03/20 15:15 Nucleated RBC % Not Reportable 07/03/20 15:15 Seg Neutrophils # Man 1.6 K/mm3 (1.8-7.7) L 07/03/20 15:15 Band Neutrophils # 0.0 K/mm3 07/03/20 15:15 Lymphocytes # (Manual) 1.4 K/mm3 (1.2-5.4) 07/03/20 15:15 Abs React Lymphs (Man) 0.0 K/mm3 07/03/20 15:15 Monocytes # (Manual) 0.6 K/mm3 (0.0-0.8) 07/03/20 15:15 Eosinophils # (Manual) 0.0 K/mm3 (0.0-0.4) 07/03/20 15:15 Basophils # (Manual) 0.0 K/mm3 (0.0-0.1) 07/03/20 15:15 Metamyelocytes # 0.0 K/mm3 07/03/20 15:15 Myelocytes # 0.0 K/mm3 07/03/20 15:15 Promyelocytes # 0.0 K/mm3 07/03/20 15:15 Blast Cells # 0.0 K/mm3 07/03/20 15:15 WBC Morphology Not Reportable 07/03/20 15:15 Hypersegmented Neuts Not Reportable 07/03/20 15:15 Hyposegmented Neuts Not Reportable 07/03/20 15:15 Hypogranular Neuts Not Reportable 07/03/20 15:15 Smudge Cells Not Reportable 07/03/20 15:15 Toxic Granulation Not Reportable 07/03/20 15:15 Toxic Vacuolation Not Reportable 07/03/20 15:15 Dohle Bodies Not Reportable 07/03/20 15:15 Pelger-Huet Anomaly Not Reportable 07/03/20 15:15 Michael Rods Not Reportable 07/03/20 15:15 Platelet Estimate Not Reportable 07/03/20 15:15 Clumped Platelets Not Reportable 07/03/20 15:15 Plt Clumps, EDTA Not Reportable 07/03/20 15:15 Large Platelets Not Reportable 07/03/20 15:15 Giant Platelets Not Reportable 07/03/20 15:15 Platelet Satelliting Not Reportable 07/03/20 15:15 Plt Morphology Comment Not Reportable 07/03/20 15:15 RBC Morphology Normal 07/03/20 15:15 Dimorphic RBCs Not Reportable 07/03/20 15:15 Polychromasia Not Reportable 07/03/20 15:15 Hypochromasia Not Reportable 07/03/20 15:15 Poikilocytosis Not Reportable 07/03/20 15:15 Anisocytosis Not Reportable 07/03/20 15:15 Microcytosis Not Reportable 07/03/20 15:15 Macrocytosis Not Reportable 07/03/20 15:15 Spherocytes Not Reportable 07/03/20 15:15 Pappenheimer Bodies Not Reportable 07/03/20 15:15 Sickle Cells Not Reportable 07/03/20 15:15 Target Cells Not Reportable 07/03/20 15:15 Tear Drop Cells Not Reportable 07/03/20 15:15 Ovalocytes Not Reportable 07/03/20 15:15 Helmet Cells Not Reportable 07/03/20 15:15 [place] Bodies Not Reportable 07/03/20 15:15 [place] Rings Not Reportable 07/03/20 15:15 Doug Cells Not Reportable 07/03/20 15:15 Bite Cells Not Reportable 07/03/20 15:15 Crenated Cell Not Reportable 07/03/20 15:15 Elliptocytes Not Reportable 07/03/20 15:15 Acanthocytes (Spur) Not Reportable 07/03/20 15:15 Rouleaux Not Reportable 07/03/20 15:15 Hemoglobin C Crystals Not Reportable 07/03/20 15:15 Schistocytes Not Reportable 07/03/20 15:15 Malaria parasites Not Reportable 07/03/20 15:15 Kirill Bodies Not Reportable 07/03/20 15:15 Hem Pathologist Commnt No 07/03/20 15:15 PT 11.9 Sec. (12.2-14.9) L 07/03/20 15:15 INR 0.86 (0.87-1.13) L 07/03/20 15:15 APTT 28.1 Sec. (24.2-36.6) 07/03/20 15:15 Thrombin Time 18.1 Sec. (15.1-19.6) 07/03/20 15:15 Sodium 140 mmol/L (137-145) 07/03/20 15:15 Potassium 4.3 mmol/L (3.6-5.0) 07/03/20 15:15 Chloride 103.8 mmol/L (98-107) 07/03/20 15:15 Carbon Dioxide 23 mmol/L (22-30) 07/03/20 15:15 Anion Gap 18 mmol/L 07/03/20 15:15 BUN 16 mg/dL (9-20) 07/03/20 15:15 Creatinine 0.8 mg/dL (0.8-1.3) 07/03/20 15:15 Estimated GFR > 60 ml/min 07/03/20 15:15 BUN/Creatinine Ratio 20 % 07/03/20 15:15 Glucose 86 mg/dL (75-100) 07/03/20 15:15 POC Glucose 89 (70-105) 07/08/20 07:51 Calcium 8.8 mg/dL (8.4-10.2) 07/03/20 15:15 Troponin T < 0.010 ng/mL (0.00-0.029) 07/03/20 15:15 Triglycerides 82 mg/dL (2-149) 07/04/20 07:56 Cholesterol 140 mg/dL (50-199) 07/04/20 07:56 LDL Cholesterol Direct 96 mg/dL (50-130) 07/04/20 07:56 HDL Cholesterol 37 mg/dL (40-59) L 07/04/20 07:56 Cholesterol/HDL Ratio 3.78 % 07/04/20 07:56 Nasal Screen MRSA (PCR) Negative (Negative) 07/04/20 14:47 Coronavirus (PCR) Negative (Negative) 07/06/20 08:51 Iyer/IV: Voiding Method Toilet IV Catheter Type [Left Forearm Peripheral IV ] Active Medications - Current Medications Current Medications: Generic Name Dose Route Start Last Admin Trade Name Freq PRN Reason Stop Dose Admin Abacavir Sulfate 600 mg 07/05/20 11:00 07/07/20 09:18 Ziagen PO 600 mg DAILY DEBRA Administration Acetaminophen 650 mg 07/03/20 16:44 Tylenol PO Q4H PRN Pain, Mild (1-3) Albuterol 2.5 mg 07/05/20 09:34 Proventil IH Q4HRT PRN Shortness Of Breath Arformoterol Tartrate 15 mcg 07/05/20 09:45 07/07/20 20:30 Brovana Nebu IH 15 mcg Q12HRT DEBRA Administration Aripiprazole 15 mg 07/05/20 10:00 07/07/20 09:16 Abilify PO 15 mg DAILY DEBRA Administration Aspirin 81 mg 07/05/20 10:00 07/07/20 09:15 Halfprin Ec PO 81 mg DAILY DEBRA Administration Atorvastatin Calcium 80 mg 07/05/20 22:00 07/07/20 22:15 Lipitor PO 80 mg QHS DEBRA Administration Bisacodyl 10 mg 07/03/20 16:44 Dulcolax OR QDAY PRN Constipation Budesonide 0.5 mg 07/06/20 13:12 07/07/20 20:30 Pulmicort IH 0.5 mg Q12HRT DEBRA Administration Buspirone HCl 10 mg 07/05/20 10:00 07/07/20 22:17 Buspar PO 10 mg BID DEBRA Administration Clopidogrel Bisulfate 75 mg 07/05/20 10:00 07/07/20 09:20 Plavix PO 75 mg DAILY DEBRA Administration Dicyclomine HCl 10 mg 07/05/20 10:00 07/07/20 22:17 Bentyl PO 10 mg QID DEBRA Administration Docusate Sodium 100 mg 07/05/20 09:19 Colace PO BID PRN STOOL SOFTENING Doxepin HCl 100 mg 07/05/20 22:00 07/07/20 22:29 Sinequan PO Not Given QHS DEBRA Furosemide 40 mg 07/05/20 10:00 07/07/20 09:19 Lasix PO 40 mg QDAY DEBRA Administration Insulin Human Isoph/Insulin Regular 20 unit 07/05/20 10:00 07/07/20 09:14 Humulin 70/30 SUB-Q 20 unit QAMDIAB [facility] Administration Lamivudine 300 mg 07/05/20 11:00 07/07/20 09:15 Epivir PO 300 mg DAILY DEBRA Administration Levetiracetam 750 mg 07/05/20 10:00 07/07/20 22:10 Keppra PO 750 mg BID DEBRA Administration Lorazepam 2 mg 07/04/20 23:16 07/04/20 23:31 Ativan IV 2 mg Q4H PRN Administration Seizures Magnesium Hydroxide 30 ml 07/03/20 16:44 Milk Of Magnesia PO Q4H PRN Constipation Metoprolol Tartrate 100 mg 07/05/20 10:00 07/08/20 00:05 Metoprolol PO Not Given BID [facility] Mirtazapine 15 mg 07/05/20 22:00 07/08/20 04:48 Remeron PO Not Given QHS [facility] Ondansetron HCl 4 mg 07/03/20 16:44 Zofran IV Q8H PRN Nausea And Vomiting Oxycodone HCl 5 mg 07/05/20 09:31 07/07/20 22:01 Roxicodone PO 5 mg Q6H PRN Administration Pain, Moderate (4-6) Oxycodone/Acetaminophen 1 tab 07/05/20 09:30 07/07/20 05:40 Percocet 5/325 PO 1 tab Q6H PRN Administration Pain, Moderate (4-6) Phenytoin 300 mg 07/05/20 22:00 07/07/20 22:13 Dilantin PO 300 mg QHS DEBRA Administration Potassium Chloride 20 meq 07/05/20 10:00 07/07/20 09:20 K-Dur PO 20 meq QDAY DEBRA Administration Sodium Chloride 10 ml 07/03/20 16:44 Sodium Chloride Flush Syringe 10 Ml IV PRN PRN LINE FLUSH
[2020-07-08] MEDS: BUDESONIDE 0.5 MG/2 ML NEBU IH SCH ×2 (08:25→20:34)
[2020-07-08] MEDS: ARFORMOTEROL 15 MCG/2 ML NEBU IH SCH ×2 (08:25→20:34)
[2020-07-08] MEDS: INSULIN NPH/REGULAR 70/30 INJ SUB-Q SCH (08:48)
[2020-07-08] MEDS: FUROSEMIDE 40 MG TAB PO SCH (10:37)
[2020-07-08] MEDS: ASPIRIN EC 81 MG TAB PO SCH (10:37)
[2020-07-08] MEDS: levETIRAcetam 500 MG TAB PO SCH ×2 (10:37→21:20)
[2020-07-08] MEDS: CLOPIDOGREL 75 MG TAB PO SCH (10:38)
[2020-07-08] MEDS: POTASSIUM CHLORIDE ER 20 MEQ TAB PO SCH (10:38)
[2020-07-08] MEDS: oxyCODONE /ACETAMINOPHEN 5-325MG TAB PO PRN (12:20)
[2020-07-08] MEDS: busPIRone 10 MG TAB PO SCH ×2 (12:20→21:19)
[2020-07-08] MEDS: ARIPiprazole 15 MG TAB PO SCH (12:21)
[2020-07-08] MEDS: ABACAVIR 300 MG TAB PO SCH (12:22)
[2020-07-08] MEDS: DICYCLOMINE 10 MG CAP PO SCH ×4 (12:24→22:01)
[2020-07-08] MEDS: DOLUTEGRAVIR 50 MG TAB PO SCH (12:27)
[2020-07-08] MEDS: PHENYTOIN 100 MG CAPSULE.ER PO SCH (21:19)
[2020-07-08] MEDS: DOXEPIN 100 MG CAP PO SCH (21:23)
[2020-07-09] MEDS ORDERED: SODIUM CHLORIDE 0.9% 500 ML 500 ML IV ONE (07:00)
--- NOTE | 2020-07-09 07:22 | Progress Note ---
Assessment and Plan Assessment and plan: -- CVA (cerebral vascular accident) Has h/o CVA with left sided weakness CVA protocol: CT head, neuro check, seizure precaution, fall precautions, physical therapy consulted, Occupational Therapy consulted, speech therapy consulted, dual antiplatelet therapy, CTA of the head and neck, carotid Doppler, echocardiogram from 01/18 reviewed, carotid Doppler from 06/19 reviewed. Had multiple MRI in recent past showing no new changes, he was recommended acute rehab during last admission but was discharged home with PT now recommending [facility] sent referrals -- CAD (coronary artery disease) Statin therapy, low-cholesterol diet, smoking cessation, risk factor reduction therapy. -- Nicotine dependence smoking cessation counseling. -- HIV disease Continue current therapy, outpatient infectious disease service follow-up. -- Chronic pain syndrome Continue pain management, supportive care. Pain assessment as per nursing care routine. -- Seizure disorder Seizure precautions, continue Dilantin, neurochecks. -- DVT prophylaxis SCD to bilateral lower extremities while in bed, patient is ambulatory -- disposition: pending placement to [facility], patient need insurance authorization History Interval history: Patient was seen and evaluated this morning Patient states he does have any appetite, but advised him to eat and he said he is going to eat. Patient refused Accu-Chek Hospitalist Physical - Physical exam Narrative exam: Not in cardiopulmonary distress. The patient appeared well nourished and normally developed. Vital signs as documented. Head exam is unremarkable. No scleral icterus . Neck is without jugular venous distension, thyromegaly, or carotid bruits. Lungs are clear to auscultation. Cardiac exam reveals regular rate and Rhythm. Abdominal exam reveals normal bowel sounds, nontender, no organomegaly. Extremities are nonedematous and both femoral and pedal pulses are normal. NEGOTIATIONS DIRECTOR: Alert and oriented 3. Left-sided weakness. - Constitutional Vitals: Temp Pulse Resp BP Pulse Ox 97.6 F 68 18 81/46 94 07/09/20 05:41 07/09/20 05:41 07/09/20 05:41 07/09/20 05:41 07/09/20 05:41 General appearance: Present: no acute distress, well-nourished HEART Score - HEART Score Troponin: Troponin T < 0.010 ng/mL (0.00-0.029) 07/03/20 15:15 Results - Labs CBC & Chem 7: 07/03/20 15:15 07/03/20 15:15 Labs: Laboratory Last Values WBC 3.6 K/mm3 (4.5-11.0) L 07/03/20 15:15 RBC 4.50 M/mm3 (3.65-5.03) 07/03/20 15:15 Hgb 14.5 gm/dl (11.8-15.2) 07/03/20 15:15 Hct 40.9 % (35.5-45.6) 07/03/20 15:15 MCV 91 fl (84-94) 07/03/20 15:15 MCH 32 pg (28-32) 07/03/20 15:15 MCHC 35 % (32-34) H 07/03/20 15:15 RDW 13.6 % (13.2-15.2) 07/03/20 15:15 Plt Count 178 K/mm3 (140-440) 07/03/20 15:15 [place] % (Auto) Manager Of Training 07/03/20 15:15 Add Manual Diff Complete 07/03/20 15:15 Total Counted 100 07/03/20 15:15 Seg Neuts % (Manual) 44.0 % (40.0-70.0) 07/03/20 15:15 Band Neutrophils % 0 % 07/03/20 15:15 Lymphocytes % (Manual) 38.0 % (13.4-35.0) H 07/03/20 15:15 Reactive Lymphs % (Man) 0 % 07/03/20 15:15 Monocytes % (Manual) 16.0 % (0.0-7.3) H 07/03/20 15:15 Eosinophils % (Manual) 1.0 % (0.0-4.3) 07/03/20 15:15 Basophils % (Manual) 1.0 % (0.0-1.8) 07/03/20 15:15 Metamyelocytes % 0 % 07/03/20 15:15 Myelocytes % 0 % 07/03/20 15:15 Promyelocytes % 0 % 07/03/20 15:15 Blast Cells % 0 % 07/03/20 15:15 Nucleated RBC % Not Reportable 07/03/20 15:15 Seg Neutrophils # Man 1.6 K/mm3 (1.8-7.7) L 07/03/20 15:15 Band Neutrophils # 0.0 K/mm3 07/03/20 15:15 Lymphocytes # (Manual) 1.4 K/mm3 (1.2-5.4) 07/03/20 15:15 Abs React Lymphs (Man) 0.0 K/mm3 07/03/20 15:15 Monocytes # (Manual) 0.6 K/mm3 (0.0-0.8) 07/03/20 15:15 Eosinophils # (Manual) 0.0 K/mm3 (0.0-0.4) 07/03/20 15:15 Basophils # (Manual) 0.0 K/mm3 (0.0-0.1) 07/03/20 15:15 Metamyelocytes # 0.0 K/mm3 07/03/20 15:15 Myelocytes # 0.0 K/mm3 07/03/20 15:15 Promyelocytes # 0.0 K/mm3 07/03/20 15:15 Blast Cells # 0.0 K/mm3 07/03/20 15:15 WBC Morphology Not Reportable 07/03/20 15:15 Hypersegmented Neuts Not Reportable 07/03/20 15:15 Hyposegmented Neuts Not Reportable 07/03/20 15:15 Hypogranular Neuts Not Reportable 07/03/20 15:15 Smudge Cells Not Reportable 07/03/20 15:15 Toxic Granulation Not Reportable 07/03/20 15:15 Toxic Vacuolation Not Reportable 07/03/20 15:15 Dohle Bodies Not Reportable 07/03/20 15:15 Pelger-Huet Anomaly Not Reportable 07/03/20 15:15 Michael Rods Not Reportable 07/03/20 15:15 Platelet Estimate Not Reportable 07/03/20 15:15 Clumped Platelets Not Reportable 07/03/20 15:15 Plt Clumps, EDTA Not Reportable 07/03/20 15:15 Large Platelets Not Reportable 07/03/20 15:15 Giant Platelets Not Reportable 07/03/20 15:15 Platelet Satelliting Not Reportable 07/03/20 15:15 Plt Morphology Comment Not Reportable 07/03/20 15:15 RBC Morphology Normal 07/03/20 15:15 Dimorphic RBCs Not Reportable 07/03/20 15:15 Polychromasia Not Reportable 07/03/20 15:15 Hypochromasia Not Reportable 07/03/20 15:15 Poikilocytosis Not Reportable 07/03/20 15:15 Anisocytosis Not Reportable 07/03/20 15:15 Microcytosis Not Reportable 07/03/20 15:15 Macrocytosis Not Reportable 07/03/20 15:15 Spherocytes Not Reportable 07/03/20 15:15 Pappenheimer Bodies Not Reportable 07/03/20 15:15 Sickle Cells Not Reportable 07/03/20 15:15 Target Cells Not Reportable 07/03/20 15:15 Tear Drop Cells Not Reportable 07/03/20 15:15 Ovalocytes Not Reportable 07/03/20 15:15 Helmet Cells Not Reportable 07/03/20 15:15 [place] Bodies Not Reportable 07/03/20 15:15 [place] Rings Not Reportable 07/03/20 15:15 [place] Cells Not Reportable 07/03/20 15:15 Bite Cells Not Reportable 07/03/20 15:15 Crenated Cell Not Reportable 07/03/20 15:15 Elliptocytes Not Reportable 07/03/20 15:15 Acanthocytes (Spur) Not Reportable 07/03/20 15:15 Rouleaux Not Reportable 07/03/20 15:15 Hemoglobin C Crystals Not Reportable 07/03/20 15:15 Schistocytes Not Reportable 07/03/20 15:15 Malaria parasites Not Reportable 07/03/20 15:15 Kirill Bodies Not Reportable 07/03/20 15:15 Hem Pathologist Commnt No 07/03/20 15:15 PT 11.9 Sec. (12.2-14.9) L 07/03/20 15:15 INR 0.86 (0.87-1.13) L 07/03/20 15:15 APTT 28.1 Sec. (24.2-36.6) 07/03/20 15:15 Thrombin Time 18.1 Sec. (15.1-19.6) 07/03/20 15:15 Sodium 140 mmol/L (137-145) 07/03/20 15:15 Potassium 4.3 mmol/L (3.6-5.0) 07/03/20 15:15 Chloride 103.8 mmol/L (98-107) 07/03/20 15:15 Carbon Dioxide 23 mmol/L (22-30) 07/03/20 15:15 Anion Gap 18 mmol/L 07/03/20 15:15 BUN 16 mg/dL (9-20) 07/03/20 15:15 Creatinine 0.8 mg/dL (0.8-1.3) 07/03/20 15:15 Estimated GFR > 60 ml/min 07/03/20 15:15 BUN/Creatinine Ratio 20 % 07/03/20 15:15 Glucose 86 mg/dL (75-100) 07/03/20 15:15 POC Glucose 159 (70-105) H 07/08/20 22:11 Calcium 8.8 mg/dL (8.4-10.2) 07/03/20 15:15 Troponin T < 0.010 ng/mL (0.00-0.029) 07/03/20 15:15 Triglycerides 82 mg/dL (2-149) 07/04/20 07:56 Cholesterol 140 mg/dL (50-199) 07/04/20 07:56 LDL Cholesterol Direct 96 mg/dL (50-130) 07/04/20 07:56 HDL Cholesterol 37 mg/dL (40-59) L 07/04/20 07:56 Cholesterol/HDL Ratio 3.78 % 07/04/20 07:56 Nasal Screen MRSA (PCR) Negative (Negative) 07/04/20 14:47 Coronavirus (PCR) Negative (Negative) 07/06/20 08:51 Iyer/IV: Voiding Method Urinal IV Catheter Type [Left Forearm Peripheral IV ] Active Medications - Current Medications Current Medications: Generic Name Dose Route Start Last Admin Trade Name Freq PRN Reason Stop Dose Admin Abacavir Sulfate 600 mg 07/05/20 11:00 07/08/20 12:22 Ziagen PO 600 mg DAILY DEBRA Administration Acetaminophen 650 mg 07/03/20 16:44 Tylenol PO Q4H PRN Pain, Mild (1-3) Albuterol 2.5 mg 07/05/20 09:34 Proventil IH Q4HRT PRN Shortness Of Breath Arformoterol Tartrate 15 mcg 07/05/20 09:45 07/08/20 20:34 Brovana Nebu IH 15 mcg Q12HRT DEBRA Administration Aripiprazole 15 mg 07/05/20 10:00 07/08/20 12:21 Abilify PO 15 mg DAILY DEBRA Administration Aspirin 81 mg 07/05/20 10:00 07/08/20 10:37 Halfprin Ec PO 81 mg DAILY DEBRA Administration Atorvastatin Calcium 80 mg 07/05/20 22:00 07/08/20 21:18 Lipitor PO 80 mg QHS DEBRA Administration Bisacodyl 10 mg 07/03/20 16:44 Dulcolax PA QDAY PRN Constipation Budesonide 0.5 mg 07/06/20 13:12 07/08/20 20:34 Pulmicort IH 0.5 mg Q12HRT DEBRA Administration Buspirone HCl 10 mg 07/05/20 10:00 07/08/20 21:19 Buspar PO 10 mg BID DEBRA Administration Clopidogrel Bisulfate 75 mg 07/05/20 10:00 07/08/20 10:38 Plavix PO 75 mg DAILY DEBRA Administration Dicyclomine HCl 10 mg 07/05/20 10:00 07/08/20 22:01 Bentyl PO Not Given QID DEBRA Docusate Sodium 100 mg 07/05/20 09:19 Colace PO BID PRN STOOL SOFTENING Doxepin HCl 100 mg 07/05/20 22:00 07/08/20 21:23 Sinequan PO 100 mg QHS DEBRA Administration Furosemide 40 mg 07/05/20 10:00 07/08/20 10:37 Lasix PO 40 mg QDAY DEBRA Administration Sodium Chloride 500 mls @ 999 mls/hr 07/09/20 07:00 07/09/20 07:13 Nacl 0.9% 500 Ml IV 07/09/20 07:30 999 mls/hr ONCE ONE Administration Insulin Human Isoph/Insulin Regular 20 unit 07/05/20 10:00 07/08/20 08:48 Humulin 70/30 SUB-Q Not Given QAMDIAB DEBRA Lamivudine 300 mg 07/05/20 11:00 07/08/20 12:23 Epivir PO 300 mg DAILY DEBRA Administration Levetiracetam 750 mg 07/05/20 10:00 07/08/20 21:20 Keppra PO 750 mg BID DEBRA Administration Lorazepam 2 mg 07/04/20 23:16 07/04/20 23:31 Ativan IV 2 mg Q4H PRN Administration Seizures Magnesium Hydroxide 30 ml 07/03/20 16:44 Milk Of Magnesia PO Q4H PRN Constipation Metoprolol Tartrate 100 mg 07/05/20 10:00 07/08/20 21:20 Metoprolol PO 100 mg BID DEBRA Administration Mirtazapine 15 mg 07/05/20 22:00 07/08/20 21:19 Remeron PO 15 mg QHS DEBRA Administration Ondansetron HCl 4 mg 07/03/20 16:44 Zofran IV Q8H PRN Nausea And Vomiting Oxycodone HCl 5 mg 07/05/20 09:31 07/07/20 22:01 Roxicodone PO 5 mg Q6H PRN Administration Pain, Moderate (4-6) Oxycodone/Acetaminophen 1 tab 07/05/20 09:30 07/08/20 12:20 Percocet 5/325 PO 1 tab Q6H PRN Administration Pain, Moderate (4-6) Phenytoin 300 mg 07/05/20 22:00 07/08/20 21:19 Dilantin PO 300 mg QHS DEBRA Administration Potassium Chloride 20 meq 07/05/20 10:00 07/08/20 10:38 K-Dur PO 20 meq QDAY DEBRA Administration Sodium Chloride 10 ml 07/03/20 16:44 Sodium Chloride Flush Syringe 10 Ml IV PRN PRN LINE FLUSH
[2020-07-09] MEDS: ARFORMOTEROL 15 MCG/2 ML NEBU IH SCH (07:38)
[2020-07-09] MEDS: BUDESONIDE 0.5 MG/2 ML NEBU IH SCH (07:38)
[2020-07-09] MEDS: INSULIN NPH/REGULAR 70/30 INJ SUB-Q SCH (08:00)
[2020-07-09] MEDS: busPIRone 10 MG TAB PO SCH ×2 (10:06→23:14)
[2020-07-09] MEDS: DICYCLOMINE 10 MG CAP PO SCH ×4 (10:06→23:14)
[2020-07-09] MEDS: ARIPiprazole 15 MG TAB PO SCH (10:06)
[2020-07-09] MEDS: DOLUTEGRAVIR 50 MG TAB PO SCH (10:06)
[2020-07-09] MEDS: CLOPIDOGREL 75 MG TAB PO SCH (10:07)
[2020-07-09] MEDS: levETIRAcetam 500 MG TAB PO SCH ×2 (10:07→23:12)
[2020-07-09] MEDS: ABACAVIR 300 MG TAB PO SCH (10:08)
[2020-07-09] MEDS: POTASSIUM CHLORIDE ER 20 MEQ TAB PO SCH (10:08)
[2020-07-09] MEDS: METOPROLOL TARTRATE 100 MG TAB PO SCH ×2 (10:09→23:14)
[2020-07-09] MEDS: FUROSEMIDE 40 MG TAB PO SCH (10:09)
[2020-07-09] MEDS: oxyCODONE /ACETAMINOPHEN 5-325MG TAB PO PRN (10:21)
[2020-07-09] MEDS: ASPIRIN EC 81 MG TAB PO SCH (10:22)
[2020-07-09] MEDS: PHENYTOIN 100 MG CAPSULE.ER PO SCH (23:13)
[2020-07-09] MEDS: DOXEPIN 100 MG CAP PO SCH (23:14)
[2020-07-09] MEDS: MIRTAZAPINE 15 MG TAB PO SCH (23:14)
[2020-07-10] MEDS: oxyCODONE /ACETAMINOPHEN 5-325MG TAB PO PRN
[2020-07-10] MEDS: BUDESONIDE 0.5 MG/2 ML NEBU IH SCH ×3 (00:36→20:07)
[2020-07-10] MEDS: ARFORMOTEROL 15 MCG/2 ML NEBU IH SCH ×3 (00:36→20:07)
--- NOTE | 2020-07-10 07:33 | Progress Note ---
Assessment and Plan Assessment and plan: -- CVA (cerebral vascular accident) Has h/o CVA with left sided weakness CVA protocol: CT head, neuro check, seizure precaution, fall precautions, physical therapy consulted, Occupational Therapy consulted, speech therapy consulted, dual antiplatelet therapy, CTA of the head and neck, carotid Doppler, echocardiogram from 01/18 reviewed, carotid Doppler from 06/19 reviewed. Had multiple MRI in recent past showing no new changes, he was recommended acute rehab during last admission but was discharged home with PT now recommending [facility] sent referrals -- CAD (coronary artery disease) Statin therapy, low-cholesterol diet, smoking cessation, risk factor reduction therapy. -- Nicotine dependence smoking cessation counseling. -- HIV disease Continue current therapy, outpatient infectious disease service follow-up. -- Chronic pain syndrome Continue pain management, supportive care. Pain assessment as per nursing care routine. -- Seizure disorder Seizure precautions, continue Dilantin, neurochecks. -- DVT prophylaxis SCD to bilateral lower extremities while in bed, patient is ambulatory -- disposition: pending placement to [facility], patient need insurance authorization History Interval history: Patient was seen and evaluated this morning No nursing issues overnight Patient did not have any complaints Hospitalist Physical - Physical exam Narrative exam: Not in cardiopulmonary distress. The patient appeared well nourished and normally developed. Vital signs as documented. Head exam is unremarkable. No scleral icterus . Neck is without jugular venous distension, thyromegaly, or carotid bruits. Lungs are clear to auscultation. Cardiac exam reveals regular rate and Rhythm. Abdominal exam reveals normal bowel sounds, nontender, no organomegaly. Extremities are nonedematous and both femoral and pedal pulses are normal. INVESTMENT BROKER: Alert and oriented 3. Left-sided weakness. - Constitutional Vitals: Temp Pulse Resp BP Pulse Ox 98.1 F 78 16 83/43 96 07/10/20 04:57 07/10/20 04:57 07/10/20 04:57 07/10/20 04:57 07/10/20 04:57 General appearance: Present: no acute distress, well-nourished HEART Score - HEART Score Troponin: Troponin T < 0.010 ng/mL (0.00-0.029) 07/03/20 15:15 Results - Labs CBC & Chem 7: 07/03/20 15:15 07/03/20 15:15 Labs: Laboratory Last Values WBC 3.6 K/mm3 (4.5-11.0) L 07/03/20 15:15 RBC 4.50 M/mm3 (3.65-5.03) 07/03/20 15:15 Hgb 14.5 gm/dl (11.8-15.2) 07/03/20 15:15 Hct 40.9 % (35.5-45.6) 07/03/20 15:15 MCV 91 fl (84-94) 07/03/20 15:15 MCH 32 pg (28-32) 07/03/20 15:15 MCHC 35 % (32-34) H 07/03/20 15:15 RDW 13.6 % (13.2-15.2) 07/03/20 15:15 Plt Count 178 K/mm3 (140-440) 07/03/20 15:15 [place] % (Auto) Golf Ball Winder 07/03/20 15:15 Add Manual Diff Complete 07/03/20 15:15 Total Counted 100 07/03/20 15:15 Seg Neuts % (Manual) 44.0 % (40.0-70.0) 07/03/20 15:15 Band Neutrophils % 0 % 07/03/20 15:15 Lymphocytes % (Manual) 38.0 % (13.4-35.0) H 07/03/20 15:15 Reactive Lymphs % (Man) 0 % 07/03/20 15:15 Monocytes % (Manual) 16.0 % (0.0-7.3) H 07/03/20 15:15 Eosinophils % (Manual) 1.0 % (0.0-4.3) 07/03/20 15:15 Basophils % (Manual) 1.0 % (0.0-1.8) 07/03/20 15:15 Metamyelocytes % 0 % 07/03/20 15:15 Myelocytes % 0 % 07/03/20 15:15 Promyelocytes % 0 % 07/03/20 15:15 Blast Cells % 0 % 07/03/20 15:15 Nucleated RBC % Not Reportable 07/03/20 15:15 Seg Neutrophils # Man 1.6 K/mm3 (1.8-7.7) L 07/03/20 15:15 Band Neutrophils # 0.0 K/mm3 07/03/20 15:15 Lymphocytes # (Manual) 1.4 K/mm3 (1.2-5.4) 07/03/20 15:15 Abs React Lymphs (Man) 0.0 K/mm3 07/03/20 15:15 Monocytes # (Manual) 0.6 K/mm3 (0.0-0.8) 07/03/20 15:15 Eosinophils # (Manual) 0.0 K/mm3 (0.0-0.4) 07/03/20 15:15 Basophils # (Manual) 0.0 K/mm3 (0.0-0.1) 07/03/20 15:15 Metamyelocytes # 0.0 K/mm3 07/03/20 15:15 Myelocytes # 0.0 K/mm3 07/03/20 15:15 Promyelocytes # 0.0 K/mm3 07/03/20 15:15 Blast Cells # 0.0 K/mm3 07/03/20 15:15 WBC Morphology Not Reportable 07/03/20 15:15 Hypersegmented Neuts Not Reportable 07/03/20 15:15 Hyposegmented Neuts Not Reportable 07/03/20 15:15 Hypogranular Neuts Not Reportable 07/03/20 15:15 Smudge Cells Not Reportable 07/03/20 15:15 Toxic Granulation Not Reportable 07/03/20 15:15 Toxic Vacuolation Not Reportable 07/03/20 15:15 Dohle Bodies Not Reportable 07/03/20 15:15 Pelger-Huet Anomaly Not Reportable 07/03/20 15:15 Michael Rods Not Reportable 07/03/20 15:15 Platelet Estimate Not Reportable 07/03/20 15:15 Clumped Platelets Not Reportable 07/03/20 15:15 Plt Clumps, EDTA Not Reportable 07/03/20 15:15 Large Platelets Not Reportable 07/03/20 15:15 Giant Platelets Not Reportable 07/03/20 15:15 Platelet Satelliting Not Reportable 07/03/20 15:15 Plt Morphology Comment Not Reportable 07/03/20 15:15 RBC Morphology Normal 07/03/20 15:15 Dimorphic RBCs Not Reportable 07/03/20 15:15 Polychromasia Not Reportable 07/03/20 15:15 Hypochromasia Not Reportable 07/03/20 15:15 Poikilocytosis Not Reportable 07/03/20 15:15 Anisocytosis Not Reportable 07/03/20 15:15 Microcytosis Not Reportable 07/03/20 15:15 Macrocytosis Not Reportable 07/03/20 15:15 Spherocytes Not Reportable 07/03/20 15:15 Pappenheimer Bodies Not Reportable 07/03/20 15:15 Sickle Cells Not Reportable 07/03/20 15:15 Target Cells Not Reportable 07/03/20 15:15 Tear Drop Cells Not Reportable 07/03/20 15:15 Ovalocytes Not Reportable 07/03/20 15:15 Helmet Cells Not Reportable 07/03/20 15:15 [place] Bodies Not Reportable 07/03/20 15:15 [place] Rings Not Reportable 07/03/20 15:15 [place] Cells Not Reportable 07/03/20 15:15 Bite Cells Not Reportable 07/03/20 15:15 Crenated Cell Not Reportable 07/03/20 15:15 Elliptocytes Not Reportable 07/03/20 15:15 Acanthocytes (Spur) Not Reportable 07/03/20 15:15 Rouleaux Not Reportable 07/03/20 15:15 Hemoglobin C Crystals Not Reportable 07/03/20 15:15 Schistocytes Not Reportable 07/03/20 15:15 Malaria parasites Not Reportable 07/03/20 15:15 Kirill Bodies Not Reportable 07/03/20 15:15 Hem Pathologist Commnt No 07/03/20 15:15 PT 11.9 Sec. (12.2-14.9) L 07/03/20 15:15 INR 0.86 (0.87-1.13) L 07/03/20 15:15 APTT 28.1 Sec. (24.2-36.6) 07/03/20 15:15 Thrombin Time 18.1 Sec. (15.1-19.6) 07/03/20 15:15 Sodium 140 mmol/L (137-145) 07/03/20 15:15 Potassium 4.3 mmol/L (3.6-5.0) 07/03/20 15:15 Chloride 103.8 mmol/L (98-107) 07/03/20 15:15 Carbon Dioxide 23 mmol/L (22-30) 07/03/20 15:15 Anion Gap 18 mmol/L 07/03/20 15:15 BUN 16 mg/dL (9-20) 07/03/20 15:15 Creatinine 0.8 mg/dL (0.8-1.3) 07/03/20 15:15 Estimated GFR > 60 ml/min 07/03/20 15:15 BUN/Creatinine Ratio 20 % 07/03/20 15:15 Glucose 86 mg/dL (75-100) 07/03/20 15:15 POC Glucose 157 (70-105) H 07/09/20 21:49 Calcium 8.8 mg/dL (8.4-10.2) 07/03/20 15:15 Troponin T < 0.010 ng/mL (0.00-0.029) 07/03/20 15:15 Triglycerides 82 mg/dL (2-149) 07/04/20 07:56 Cholesterol 140 mg/dL (50-199) 07/04/20 07:56 LDL Cholesterol Direct 96 mg/dL (50-130) 07/04/20 07:56 HDL Cholesterol 37 mg/dL (40-59) L 07/04/20 07:56 Cholesterol/HDL Ratio 3.78 % 07/04/20 07:56 Nasal Screen MRSA (PCR) Negative (Negative) 07/04/20 14:47 Coronavirus (PCR) Negative (Negative) 07/06/20 08:51 Iyer/IV: Voiding Method Urinal IV Catheter Type [Left Forearm INT / Saline Lock ] Active Medications - Current Medications Current Medications: Generic Name Dose Route Start Last Admin Trade Name Freq PRN Reason Stop Dose Admin Abacavir Sulfate 600 mg 07/05/20 11:00 07/09/20 10:08 Ziagen PO 600 mg DAILY DEBRA Administration Acetaminophen 650 mg 07/03/20 16:44 Tylenol PO Q4H PRN Pain, Mild (1-3) Albuterol 2.5 mg 07/05/20 09:34 Proventil IH Q4HRT PRN Shortness Of Breath Arformoterol Tartrate 15 mcg 07/05/20 09:45 07/10/20 00:36 Brovana Nebu IH Not Given Q12HRT DEBRA Aripiprazole 15 mg 07/05/20 10:00 07/09/20 10:06 Abilify PO 15 mg DAILY [facility] Administration Aspirin 81 mg 07/05/20 10:00 07/09/20 10:22 Halfprin Ec PO 81 mg DAILY [facility] Administration Atorvastatin Calcium 80 mg 07/05/20 22:00 07/09/20 22:00 Lipitor PO 80 mg QHS [facility] Administration Bisacodyl 10 mg 07/03/20 16:44 Dulcolax [place] QDAY PRN Constipation Budesonide 0.5 mg 07/06/20 13:12 07/10/20 00:36 Pulmicort IH Not Given Q12HRT [facility] Buspirone HCl 10 mg 07/05/20 10:00 07/09/20 23:14 Buspar PO 10 mg BID [facility] Administration Clopidogrel Bisulfate 75 mg 07/05/20 10:00 07/09/20 10:07 Plavix PO 75 mg DAILY [facility] Administration Dicyclomine HCl 10 mg 07/05/20 10:00 07/09/20 23:14 Bentyl PO 10 mg QID [facility] Administration Docusate Sodium 100 mg 07/05/20 09:19 Colace PO BID PRN STOOL SOFTENING Doxepin HCl 100 mg 07/05/20 22:00 07/09/20 23:14 Sinequan PO 100 mg QHS [facility] Administration Furosemide 40 mg 07/05/20 10:00 07/09/20 10:09 Lasix PO Not Given QDAY [facility] Insulin Human Isoph/Insulin Regular 20 unit 07/05/20 10:00 07/09/20 08:00 Humulin 70/30 SUB-Q Not Given QAMDIAB [facility] Lamivudine 300 mg 07/05/20 11:00 07/09/20 10:23 Epivir PO 300 mg DAILY [facility] Administration Levetiracetam 750 mg 07/05/20 10:00 07/09/20 23:12 Keppra PO 750 mg BID [facility] Administration Lorazepam 2 mg 07/04/20 23:16 07/04/20 23:31 Ativan IV 2 mg Q4H PRN Administration Seizures Magnesium Hydroxide 30 ml 07/03/20 16:44 Milk Of Magnesia PO Q4H PRN Constipation Metoprolol Tartrate 100 mg 07/05/20 10:00 07/09/20 23:14 Metoprolol PO 100 mg BID DEBRA Administration Mirtazapine 15 mg 07/05/20 22:00 07/09/20 23:14 Remeron PO 15 mg QHS DEBRA Administration Ondansetron HCl 4 mg 07/03/20 16:44 Zofran IV Q8H PRN Nausea And Vomiting Oxycodone HCl 5 mg 07/05/20 09:31 07/07/20 22:01 Roxicodone PO 5 mg Q6H PRN Administration Pain, Moderate (4-6) Oxycodone/Acetaminophen 1 tab 07/05/20 09:30 07/10/20 00:00 Percocet 5/325 PO 1 tab Q6H PRN Administration Pain, Moderate (4-6) Phenytoin 300 mg 07/05/20 22:00 07/09/20 23:13 Dilantin PO 300 mg QHS DEBRA Administration Potassium Chloride 20 meq 07/05/20 10:00 07/09/20 10:08 K-Dur PO 20 meq QDAY DEBRA Administration Sodium Chloride 10 ml 07/03/20 16:44 Sodium Chloride Flush Syringe 10 Ml IV PRN PRN LINE FLUSH
[2020-07-10] MEDS ORDERED: SODIUM CHLORIDE 0.9% 1000 ML 500 ML IV SCH (10:45)
[2020-07-10] MEDS: busPIRone 10 MG TAB PO SCH ×2 (11:41→22:54)
[2020-07-10] MEDS: METOPROLOL TARTRATE 100 MG TAB PO SCH ×2 (11:41→22:55)
[2020-07-10] MEDS: DICYCLOMINE 10 MG CAP PO SCH ×5 (11:42→23:07)
[2020-07-10] MEDS: levETIRAcetam 500 MG TAB PO SCH ×3 (11:42→23:07)
[2020-07-10] MEDS: ABACAVIR 300 MG TAB PO SCH (11:43)
[2020-07-10] MEDS: FUROSEMIDE 40 MG TAB PO SCH (11:43)
[2020-07-10] MEDS: POTASSIUM CHLORIDE ER 20 MEQ TAB PO SCH (11:43)
[2020-07-10] MEDS: DOLUTEGRAVIR 50 MG TAB PO SCH (11:44)
[2020-07-10] MEDS: ASPIRIN EC 81 MG TAB PO SCH (11:44)
[2020-07-10] MEDS: CLOPIDOGREL 75 MG TAB PO SCH (11:44)
[2020-07-10] MEDS: ARIPiprazole 15 MG TAB PO SCH (11:45)
[2020-07-10] MEDS: INSULIN NPH/REGULAR 70/30 INJ SUB-Q SCH (11:45)
[2020-07-10] MEDS: PHENYTOIN 100 MG CAPSULE.ER PO SCH ×2 (22:53→23:07)
[2020-07-10] MEDS: DOXEPIN 100 MG CAP PO SCH ×2 (22:54→23:07)
[2020-07-10] MEDS: MIRTAZAPINE 15 MG TAB PO SCH (22:54)
[2020-07-10] MEDS ORDERED: MORPHINE 2 MG/1 ML INJ IV ONE (23:30)
[2020-07-11] MEDS: ARFORMOTEROL 15 MCG/2 ML NEBU IH SCH ×2 (07:47→21:41)
[2020-07-11] MEDS: BUDESONIDE 0.5 MG/2 ML NEBU IH SCH ×2 (07:47→21:41)
--- NOTE | 2020-07-11 09:46 | Progress Note ---
Assessment and Plan - CVA (cerebral vascular accident) Has h/o CVA with left sided weakness CVA protocol: CT head, neuro check, seizure precaution, fall precautions, physical therapy consulted, Occupational Therapy consulted, speech therapy consulted, dual antiplatelet therapy, CTA of the head and neck, carotid Doppler, echocardiogram from 01/18 reviewed, carotid Doppler from 06/19 reviewed. Had multiple MRI in recent past showing no new changes, therfore no need to get additional test. at baseline on PE he was recommended acute rehab during last admission but was discharged home with PT now recommending [facility] - sent referrals awainting SNF placement -- CAD (coronary artery disease) Statin therapy, low-cholesterol diet, smoking cessation, risk factor reduction therapy. -- Nicotine dependence smoking cessation counseling. -- HIV disease Continue current therapy, no opportunistic infections present outpatient infectious disease service follow-up. -- Chronic pain syndrome Continue pain management, supportive care. non in pain now Pain assessment as per nursing care routine. -- Seizure disorder Seizure precautions, continue Dilantin, neurochecks. -- DVT prophylaxis SCD to bilateral lower extremities while in bed, patient is ambulatory -- disposition: pending placement to [facility], patient need insurance authorization Subjective Date of service: 07/11/20 Principal diagnosis: Stroke Interval history: The patient woke up and had left sided weakness, with history of seizures (last seizure six months prior), quadruple bypass, left sided weakness, chf. He was unable to move his left arm or left leg at all today on wakeup. There is no effo rt that I notice on examination. He has a history of stroke. Patient pleasant denies any pain or any concerns today. Awaiting longterm facility. Objective - Constitutional Vitals: Vital Signs - 12hr 07/10/20 07/10/20 07/10/20 22:00 22:55 23:49 Temperature Pulse Rate 103 H Pulse Rate [ Bilateral] Respiratory 18 17 Rate Respiratory Rate [Bilateral ] Respiratory 18 Rate [Chest] Respiratory 18 Rate [ Generalized] Blood Pressure 120/88 O2 Sat by Pulse Oximetry 07/11/20 07/11/20 07/11/20 00:19 05:21 07:48 Temperature 97.7 F Pulse Rate 71 Pulse Rate [ 67 Bilateral] Respiratory 17 19 Rate Respiratory 20 Rate [Bilateral ] Respiratory Rate [Chest] Respiratory Rate [ Generalized] Blood Pressure 108/70 O2 Sat by Pulse 94 Oximetry General appearance: Present: no acute distress - EENT Eyes: PERRL, EOM intact ENT: hearing intact, clear oral mucosa, poor dentition - Neck Neck: supple, normal ROM - Cardiovascular Rhythm: regular Heart Sounds: Present: S1 & S2. Absent: gallop, rub Extremities: pulses intact, No edema, normal color, Full ROM Extremity abnormal: other (Left-sided weakness with dysarthria) - Gastrointestinal General gastrointestinal: Present: soft, non-tender, non-distended, normal bowel sounds. Absent: hepatomegaly, splenomegaly - Musculoskeletal Musculoskeletal: left sided weakness, other (Contractures functional quadrip legia) - Psychiatric Psychiatric: appropriate mood/affect, intact judgment & insight - Labs CBC & Chem 7: 07/03/20 15:15 07/11/20 09:03 Labs: Abnormal lab results 07/10/20 Range/Units 21:13 POC Glucose 112 H (70-105) HEART Score - HEART Score Troponin: Troponin T < 0.010 ng/mL (0.00-0.029) 07/03/20 15:15
[2020-07-11 10:27] LABS: BUN/Creatinine Ratio 17; Blood Urea Nitrogen 15 mg/dL (9-20); Calcium 8.6 mg/dL (8.4-10.2); Hemolysis Index 7
[2020-07-11] MEDS: METOPROLOL TARTRATE 100 MG TAB PO SCH ×2 (11:26→22:41)
[2020-07-11] MEDS: POTASSIUM CHLORIDE ER 20 MEQ TAB PO SCH (11:26)
[2020-07-11] MEDS: CLOPIDOGREL 75 MG TAB PO SCH (11:26)
[2020-07-11] MEDS: FUROSEMIDE 40 MG TAB PO SCH (11:26)
[2020-07-11] MEDS: ASPIRIN EC 81 MG TAB PO SCH (11:26)
[2020-07-11] MEDS: levETIRAcetam 500 MG TAB PO SCH ×2 (11:27→22:40)
[2020-07-11] MEDS: busPIRone 10 MG TAB PO SCH ×2 (11:27→22:42)
[2020-07-11] MEDS: DICYCLOMINE 10 MG CAP PO SCH ×5 (11:27→22:53)
[2020-07-11] MEDS: DOLUTEGRAVIR 50 MG TAB PO SCH (11:28)
[2020-07-11] MEDS: ABACAVIR 300 MG TAB PO SCH (11:28)
[2020-07-11] MEDS: INSULIN NPH/REGULAR 70/30 INJ SUB-Q SCH (13:33)
[2020-07-11] MEDS: ARIPiprazole 15 MG TAB PO SCH (13:34)
[2020-07-11] MEDS: AQUAPHOR OINTMENT TP SCH ×2 (17:14→23:11)
[2020-07-11] MEDS: PHENYTOIN 100 MG CAPSULE.ER PO SCH ×2 (22:41→22:53)
[2020-07-11] MEDS: MIRTAZAPINE 15 MG TAB PO SCH (22:41)
[2020-07-11] MEDS: DOXEPIN 100 MG CAP PO SCH ×2 (22:42→22:53)
[2020-07-12] MEDS: oxyCODONE 5 MG TAB PO PRN (07:41)
[2020-07-12] MEDS: BUDESONIDE 0.5 MG/2 ML NEBU IH SCH (07:51)
[2020-07-12] MEDS: ARFORMOTEROL 15 MCG/2 ML NEBU IH SCH (07:51)
[2020-07-12] MEDS ORDERED: AQUAPHOR OINTMENT TP SCH (10:00)
[2020-07-12] MEDS: levETIRAcetam 500 MG TAB PO SCH (10:30)
[2020-07-12] MEDS: POTASSIUM CHLORIDE ER 20 MEQ TAB PO SCH (10:30)
[2020-07-12] MEDS: FUROSEMIDE 40 MG TAB PO SCH (10:31)
[2020-07-12] MEDS: DICYCLOMINE 10 MG CAP PO SCH ×2 (10:31→15:24)
[2020-07-12] MEDS: busPIRone 10 MG TAB PO SCH (10:31)
[2020-07-12] MEDS: ASPIRIN EC 81 MG TAB PO SCH (10:31)
[2020-07-12] MEDS: DOLUTEGRAVIR 50 MG TAB PO SCH (10:32)
[2020-07-12] MEDS: ABACAVIR 300 MG TAB PO SCH (10:33)
[2020-07-12] MEDS: CLOPIDOGREL 75 MG TAB PO SCH (10:35)
[2020-07-12] MEDS: ARIPiprazole 15 MG TAB PO SCH (10:35)
[2020-07-12] MEDS: METOPROLOL TARTRATE 100 MG TAB PO SCH (10:36)
[2020-07-12] MEDS: INSULIN NPH/REGULAR 70/30 INJ SUB-Q SCH (11:48)
--- NOTE | 2020-07-12 11:53 | Progress Note ---
Assessment and Plan - CVA (cerebral vascular accident) Has h/o CVA with left sided weakness CVA protocol: CT head, neuro check, seizure precaution, fall precautions, physical therapy consulted, Occupational Therapy consulted, speech therapy consulted, reccommed SNF dual antiplatelet therapy, CTA of the head and neck, carotid Doppler, echocardiogram from 01/18 reviewed, carotid Doppler from 06/19 reviewed. Had multiple MRI in recent past showing no new changes, therfore no need to get additional test. at baseline on PE he was recommended acute rehab during last admission but was discharged home with PT now recommending [facility] - sent referrals awainting SNF placement -- CAD (coronary artery disease) Statin therapy, low-cholesterol diet, smoking cessation, risk factor reduction therapy. -- Nicotine dependence smoking cessation counseling. -- HIV disease Continue current therapy, no opportunistic infections present outpatient infectious disease service follow-up. -- Chronic pain syndrome Continue pain management, supportive care. non in pain now Pain assessment as per nursing care routine. -- Seizure disorder Seizure precautions, continue Dilantin, neurochecks. -- DVT prophylaxis SCD to bilateral lower extremities while in bed, patient is ambulatory -- disposition: pending placement to [facility], patient need insurance authorization Subjective Date of service: 07/12/20 Principal diagnosis: Stroke Interval history: The patient woke up and had left sided weakness, with history of seizures (last seizure six months prior), quadruple bypass, left sided weakness, chf. He was unable to move his left arm or left leg at all today on wakeup. There is no effort that I notice on examination. He has a history of stroke. Patient complains of insomnia and anxiety especially at night.. Awaiting intermediate facility. Objective - Constitutional Vitals: Vital Signs - 12hr 07/12/20 07/12/20 07/12/20 04:26 09:33 10:36 Temperature 98.1 F Pulse Rate 56 L 56 L Pulse Rate [ 56 L Bilateral] Respiratory 18 Rate Respiratory 18 Rate [Bilateral ] Blood Pressure 112/62 112/52 O2 Sat by Pulse 98 Oximetry General appearance: Present: no acute distress, well-nourished - EENT Eyes: PERRL, EOM intact ENT: hearing intact, clear oral mucosa Ears: bilateral: normal - Neck Neck: supple, normal ROM - Respiratory Respiratory effort: normal Respiratory: bilateral: CTA - Breasts Breasts: normal - Cardiovascular Rhythm: regular Heart Sounds: Present: S1 & S2. Absent: gallop, rub Extremities: pulses intact, No edema, normal color, Full ROM - Gastrointestinal General gastrointestinal: Present: soft, non-tender, non-distended, normal bowel sounds - Genitourinary Male genitourinary: normal - Integumentary Integumentary: clear, warm, dry - Musculoskeletal Musculoskeletal: left sided weakness - Neurologic Neurologic: moves all extremities - Psychiatric Psychiatric: memory intact, appropriate mood/affect, intact judgment & insight - Labs CBC & Chem 7: 07/03/20 15:15 07/11/20 09:03 Labs: Abnormal lab results 07/11/20 Range/Units 22:16 POC Glucose 109 H (70-105) HEART Score - HEART Score Troponin: Troponin T < 0.010 ng/mL (0.00-0.029) 07/03/20 15:15
--- NOTE | 2020-07-12 12:13 | Discharge Summary ---
Providers - Providers Date of Admission: 07/05/20 14:03 Date of discharge: 07/12/20 Attending physician: ANDREA HANKS 07/03/20 16:44 Speech Therapy Evaluation and Treat [CONS] Routine Reason For Exam: cva 07/03/20 16:46 Occupational Therapy Evaluate and Treat [CONS] Routine Comment: Reason For Exam: Neuro deficits Physical Therapy Evaluation and Treat [CONS] Routine Comment: Reason For Exam: Neuro deficits 07/03/20 16:47 Speech Therapy Evaluation and Treat [CONS] Routine Reason For Exam: swallow eval [facility] Condition: Stable Hospital course: CVA (cerebral vascular accident) Has h/o CVA with left sided weakness CVA protocol: CT head, neuro check, seizure precaution, fall precautions, physical therapy consulted, Occupational Therapy consulted, speech therapy consulted, reccommed SNF dual antiplatelet therapy, CTA of the head and neck, carotid Doppler, ec hocardiogram from 01/18 reviewed, carotid Doppler from 06/19 reviewed. Had multiple MRI in recent past showing no new changes, therfore no need to get additional test. at baseline on PE he was recommended acute rehab during last admission but was discharged home with PT now recommending [facility] - CM sent referrals awainting SNF placement patient now changed his mind and stated that he wanted to go home with physical therapy. Patient states he has [facility] and home health they are already and would like to proceed this and not go to care home facility therefore will be discharging patient. Disposition: [id number] HOME UNDER HOME HLTH - Discharge Diagnoses (1) Acute CVA (cerebrovascular accident) Status: Acute (2) CAD (coronary artery disease) Status: Acute Qualifiers: Associated angina: without angina (3) Chronic pain syndrome Status: Acute (4) HIV disease Status: Acute (5) Nicotine dependence Status: Acute Qualifiers: Nicotine product type: cigarettes Substance use status: in withdrawal Qualified Code(s): F17.213 - Nicotine dependence, cigarettes, with withdrawal (6) Seizure disorder Status: Acute Core Measure Documentation - Palliative Care Palliative Care/ Comfort Measures: Not Applicable - Core Measures Any of the following diagnoses?: stroke - Stroke Discharge Requirements Statin for LDL = or >70 mg/dl on DC: Yes Anticoag for atrial fib/atrial flutter: Yes Antithrombotic for ischemic stroke: Yes Exam - Constitutional Vitals: Temp Pulse Resp BP Pulse Ox 98.1 F 56 L 18 112/52 98 07/12/20 04:26 07/12/20 10:36 07/12/20 09:33 07/12/20 10:36 07/12/20 04:26 General appearance: Present: no acute distress, well-nourished - EENT Eyes: Present: PERRL ENT: hearing intact, clear oral mucosa - Neck Neck: Present: supple, normal ROM - Respiratory Respiratory effort: normal Respiratory: bilateral: CTA - Cardiovascular Heart Sounds: Present: S1 & S2. Absent: rub, click - Extremities Extremities: pulses symmetrical, No edema Extremity abnormal: other (Left-sided weakness and hemiparesis.) Peripheral Pulses: within normal limits - Abdominal General gastrointestinal: Present: soft, non-tender, non-distended, normal bowel sounds Male genitourinary: Present: normal - Integumentary Integumentary: Present: clear, warm, dry - Musculoskeletal Musculoskeletal: left sided weakness - Psychiatric Psychiatric: appropriate mood/affect, intact judgment & insight - Neurologic Neurologic: CNII-XII intact, focal deficits, moves all extremities Plan Activity: fall precautions Weight Bearing Status: Full Weight Bearing Diet: low cholesterol Special Instructions: home health RN Follow up with: ELIZABETH PICKERING MD [Primary Care Provider] - 3-5 Days Prescriptions: Arformoterol Nebu [Brovana Nebu] 15 mcg IH Q12HRT #1 ml Aspirin EC [Halfprin EC] 81 mg PO DAILY #30 tablet AtorvaSTATin [Lipitor] 80 mg PO QHS #30 tablet Oxycodone HCl/Acetaminophen [Percocet 10/325 mg] 1 each PO Q6HR PRN #10 PRN Reason: Pain oxyCODONE /ACETAMINOPHEN [Percocet 5/325 mg] 1 tab PO Q6H PRN #14 tablet PRN Reason: Pain, Moderate (4-6) Clopidogrel [Plavix] 75 mg PO DAILY #30 tablet
[2020-07-12 16:46] VITALS: BP 111/68
== END 2020-07-12 17:20 | disposition home health service (06) | DRG 69 ==
LOC: ED 14:36 → 3A 18:26 → OBSVTOIN 07-05 14:03
PROVIDERS: ADMIT Internal Medicine; ATTEND Internal Medicine
DX: G45.9 Transient cerebral ischemic attack, unspecified (principal); F17.213 Nicotine dependence, cigarettes, with withdrawal; G81.94 Hemiplegia, unspecified affecting left nondominant side; I25.10 Atherosclerotic heart disease of native coronary artery without angina pectoris; Z21 Asymptomatic human immunodeficiency virus [HIV] infection status; G40.909 Epilepsy, unspecified, not intractable, without status epilepticus; G89.4 Chronic pain syndrome; Z20.828 Contact with and (suspected) exposure to other viral communicable diseases; I11.0 Hypertensive heart disease with heart failure; I50.9 Heart failure, unspecified; E11.9 Type 2 diabetes mellitus without complications; F32.9 Major depressive disorder, single episode, unspecified; J44.9 Chronic obstructive pulmonary disease, unspecified; Z95.1 Presence of aortocoronary bypass graft; Z71.6 Tobacco abuse counseling; Z79.899 Other long term (current) drug therapy; I25.2 Old myocardial infarction; Z79.4 Long term (current) use of insulin; Z82.49 Family history of ischemic heart disease and other diseases of the circulatory system; Z83.3 Family history of diabetes mellitus
CPT/HCPCS: 36415; 70450; 70496; 70498; 71045; 80048; 80061; 82962; 84484; 85007; 85025; 85610; 85670; 85730; 87641; 93005; 94640; 96365; 96375; G0378; A9270-GY; G0515-GN; J1815; J2060; J2270; J7040; U0003-CS

== ENCOUNTER 2020-08-11 08:34 | Observation (INO) | payer MEDICARE ==
--- NOTE | 2020-08-11 09:13 | Emergency Department Report ---
ED Neuro Deficit HPI - General Chief Complaint: Neuro Symptoms/Deficit Stated Complaint: STROKE Time Seen by Provider: 08/11/20 09:01 Source: patient, EMS Mode of arrival: Stretcher Limitations: No Limitations - History of Present Illness Initial Comments: [facility] Date of Service: 08/11/2020 08:29:13 Impression: Right Hemispheric Infarct Comments/Sign-Out: There are inconsistencies in the history and records. He is had some type of right hemispheric event in the past but no territorial infarction is identified. He has had negative CTA one month ago. He needs CTA now as well as MRI, EKG monitoring, fasting lipid profile, A1c, echocardiogram, rehabilitation services. Mechanism of Stroke: Not Clear Metrics: Last Known Well: 08/10/2020 21:00:12 [employer] Notification Time: 08/11/2020 08:29:00 Arrival Time: 08/11/2020 08:32:18 Stamp Time: 08/11/2020 08:29:13 Time First Login Attempt: 08/11/2020 08:31:55 Video Start Time: 08/11/2020 08:31:55 Symptoms: Left side weakness NIHSS Start Assessment Time: 08/11/2020 08:51:44 Patient is not a candidate for Alteplase/Activase. Patient was not deemed candidate for Alteplase/Activase thrombolytics because of Last Well Known Above 4.5 Hours. Video End Time: 08/11/2020 09:04:00 CT head showed no acute hemorrhage or acute core infarct. CT head was reviewed and results were: Right hemispheric atrophy and compensatory hydrocephalus ex vacuo but no evidence of acute ischemic change, hemorrhage, or mass lesion. Lower Likelihood of Large Vessel Occlusion but Following Stat Studies are Recommended CTA Head and Neck. Radiologist was not called back for review of advanced imaging because Not completed. Intervention unlikely but not impossible. No will be amended. ED Physician notified of diagnostic impression and management plan on 08/11/2020 09:03:00 Our recommendations are outlined below. Recommendations: Activate Stroke Protocol Admission/Order Set Stroke/Telemetry Floor Neuro Checks Bedside Swallow Eval DVT Prophylaxis IV Fluids, Normal Saline Head of Bed 30 Degrees Euglycemia and Avoid Hyperthermia (PRN Acetaminophen) Antiplatelet Therapy Recommended Initiate Plavix 75 MG Daily Routine Consultation with Inhouse Neurology for Follow up Care Sign Out: Discussed with Emergency Department Provider History of Present Illness: Patient is a 55 year old Male. Patient was brought by EMS for symptoms of Left side weakness This is a 55-year-old man who has a history of the right side of stroke and the previous episode of left-sided weakness about one month ago. I reviewed the medical record but he claims he was not at this hospital last month. The name and birthday on that record are the same. He has multiple risk factors listed below in and adding history of IL and coronary bypass. He is an active smoker. He is HIV-positive. Last seen normal was beyond 4.5 hours of presentation. There is no history of hemorrhagic complications or intracranial hemorrhage. There is no history of Recent Anticoagulants. There is no history of recent major surgery. There is history of recent stroke. Past Medical History: Hypertension Diabetes Mellitus Hyperlipidemia Coronary Artery Disease Stroke There is NO history of Atrial Fibrillation Anticoagulant use: No Antiplatelet use: Plavix Examination: BP(130/88), Pulse(88), Blood Glucose(97) 1A: Level of Consciousness - Alert; keenly responsive + 0 1B: Ask Month and Age - Both Questions Right + 0 1C: Blink Eyes & Squeeze Hands - Performs Both Tasks + 0 2: Test Horizontal Extraocular Movements - Normal + 0 3: Test Visual Cam - No Visual Loss + 0 4: Test Facial Palsy (Use Grimace if Obtunded) - Normal symmetry + 0 5A: Test Left Arm Motor Drift - Drift, hits bed + 2 5B: Test Right Arm Motor Drift - No Drift for 10 Seconds + 0 6A: Test Left Leg Motor Drift - No Effort Against [place] + 3 6B: Test Right Leg Motor Drift - No Drift for 5 Seconds + 0 7: Test Limb Ataxia (FNF/Heel-Love) - No Ataxia + 0 8: Test Sensation - Complete Loss: Cannot Sense Being Touched At All + 2 9: Test Language/Aphasia - Normal; No aphasia + 0 10: Test Dysarthria - Normal + 0 11: Test Extinction/Inattention - No abnormality + 0 NIHSS Score: 7 Patient/Family was informed the Neurology Consult would happen via TeleHealth consult by way of interactive audio and video telecommunications and consented to receiving care in this manner. Due to the immediate potential for life-threatening deterioration due to underlying acute neurologic illness, I spent 42 minutes providing critical care. This time includes time for face to face visit via telemedicine, review of medical records, imaging studies and discussion of findings with providers, the patient and/or family. Dr Kenn Hernández [employer] Case [id number] - Related Data Home Medications: Home Medications Medication Instructions Recorded Confirmed Last Taken ARIPiprazole [Abilify TAB] 15 mg PO DAILY 06/05/19 07/04/20 07/03/20 Albuterol Mdi (or & Nicu Only) 2 puff IH Q4H PRN 06/05/19 07/04/20 07/03/20 [ProAir HFA Inhaler] Aspirin [Adult Aspirin] 81 mg PO DAILY 06/05/19 07/04/20 07/03/20 Doxepin [SINEquan] 100 mg PO QHS 06/05/19 07/04/20 07/03/20 Fluticasone/Salmeterol(Nf) [Advair 2 puff IH BID 06/05/19 07/04/20 07/03/20 HFA 230-21 mcg] Furosemide [Lasix TAB] 40 mg PO QDAY 06/05/19 07/04/20 07/03/20 40 mg Ipratropium/Albuterol Sulfate 1 spray IH QID 06/05/19 07/04/20 07/03/20 [Combivent Respimat] Mirtazapine [Remeron 15mg TAB] 15 mg PO QHS 06/05/19 07/04/20 07/03/20 16:00 15 mg Potassium Chloride [K-Dur] 20 meq PO QDAY 06/05/19 07/04/20 07/03/20 16:00 20 meq Rosuvastatin Calcium 40 mg PO QHS 06/05/19 07/04/20 07/03/20 40 busPIRone [Buspar] 10 mg PO BID 06/05/19 07/04/20 07/03/20 10 Nucynta 75 mg PO ONCE 04/13/20 07/04/2020 16:00 75 mg Triumeq 600-50-300 mg Tablet 600 mg PO DAILY 04/14/20 07/04/20 07/03/20 600-50-300 Previous Rx's Medication Instructions Recorded Last Taken Type Dicyclomine [Bentyl] 10 mg PO QID #30 capsule 04/14/20 07/03/20 Rx Docusate Sodium [Colace CAP] 100 mg PO BID PRN #30 capsule 04/14/20 07/03/20 Rx Metoprolol [Lopressor TAB] 100 mg PO BID #60 04/14/20 07/03/20 Rx 100 mg Phenytoin [Dilantin] 300 mg PO QHS #90 04/14/20 07/03/20 Rx 300 levETIRAcetam [Keppra TAB] 750 mg PO BID #90 tablet 04/14/20 07/03/20 Rx 750 Insulin NPH/Regular [NovoLIN 70/30] 20 unit SUB-Q QAM&QHS units 07/07/20 Unknown Rx Oxycodone HCl/Acetaminophen 1 each PO Q6HR PRN #10 07/07/20 Unknown Rx [Percocet 10/325 mg] Abacavir [Ziagen TAB] 600 mg PO DAILY tablet 07/12/20 Unknown Rx Acetaminophen [Acetaminophen TAB] 650 mg PO Q4H PRN tablet 07/12/20 Unknown Rx Arformoterol Nebu [Brovana Nebu] 15 mcg IH Q12HRT #1 ml 07/12/20 Unknown Rx Aspirin EC [Halfprin EC] 81 mg PO DAILY #30 tablet 07/12/20 Unknown Rx AtorvaSTATin [Lipitor] 80 mg PO QHS #30 tablet 07/12/20 Unknown Rx Budesonide [Pulmicort Respules] 0.5 mg IH Q12HRT nebu 07/12/20 Unknown Rx Clopidogrel [Plavix] 75 mg PO DAILY #30 tablet 07/12/20 Unknown Rx Dolutegravir [Tivicay] 50 mg PO DAILY tablet 07/12/20 Unknown Rx oxyCODONE /ACETAMINOPHEN [Percocet 1 tab PO Q6H PRN #14 tablet 07/12/20 Unknown Rx 5/325 mg] Allergies/Adverse Reactions: Allergies Allergy/AdvReac Type Severity Reaction Status Date / Time metoclopramide [From Reglan] Allergy Anaphylaxis Verified 05/08/19 16:45 prochlorperazine Allergy Anaphylaxis Verified 05/08/19 16:45 [From Compazine] promethazine [From Phenergan] Allergy Anaphylaxis Verified 05/08/19 16:45 rice Allergy Hives Verified 07/10/20 17:07 ED Review of Systems ROS: Stated complaint: STROKE Other details as noted in HPI ED Past Medical Hx - Past Medical History Hx Hypertension: Yes Hx CVA: Yes (left sided weakness) Hx Heart Attack/AMI: Yes Hx Congestive Heart Failure: Yes Hx Diabetes: Yes Hx Seizures: Yes Hx Psychiatric Treatment: Yes (PTSD,depression) Hx Asthma: Yes Hx COPD: Yes Hx HIV: Yes Additional medical history: Cerebral palsy - Surgical History Additional Surgical History: CABG - Social History Smoking Status: Current Every Day Smoker - Medications Home Medications: Home Medications Medication Instructions Recorded Confirmed Last Taken Type ARIPiprazole [Abilify TAB] 15 mg PO DAILY 06/05/19 07/04/20 07/03/20 History Albuterol Mdi (or & Nicu Only) 2 puff IH Q4H PRN 06/05/19 07/04/20 07/03/20 History [ProAir HFA Inhaler] Aspirin [Adult Aspirin] 81 mg PO DAILY 06/05/19 07/04/20 07/03/20 History Doxepin [SINEquan] 100 mg PO QHS 06/05/19 07/04/20 07/03/20 History Fluticasone/Salmeterol(Nf) [Advair 2 puff IH BID 06/05/19 07/04/20 07/03/20 History HFA 230-21 mcg] Furosemide [Lasix TAB] 40 mg PO QDAY 06/05/19 07/04/20 07/03/20 History 40 mg Ipratropium/Albuterol Sulfate 1 spray IH QID 06/05/19 07/04/20 07/03/20 History [Combivent Respimat] Mirtazapine [Remeron 15mg TAB] 15 mg PO QHS 06/05/19 07/04/20 07/03/20 16:00 History 15 mg Potassium Chloride [K-Dur] 20 meq PO QDAY 06/05/19 07/04/20 07/03/20 16:00 History 20 meq Rosuvastatin Calcium 40 mg PO QHS 06/05/19 07/04/20 07/03/20 History 40 busPIRone [Buspar] 10 mg PO BID 06/05/19 07/04/20 07/03/20 History 10 Nucynta 75 mg PO ONCE 04/13/20 07/04/20 07/03/20 16:00 History 75 mg Dicyclomine [Bentyl] 10 mg PO QID #30 capsule 04/14/20 07/04/20 07/03/20 Rx Docusate Sodium [Colace CAP] 100 mg PO BID PRN #30 capsule 04/14/20 07/04/20 1 Rx Metoprolol [Lopressor TAB] 100 mg PO BID #60 04/14/20 07/04/20 07/03/20 Rx 100 mg Phenytoin [Dilantin] 300 mg PO QHS #90 04/14/20 07/04/20 07/03/20 Rx 300 Triumeq 600-50-300 mg Tablet 600 mg PO DAILY 04/14/20 07/04/20 07/03/20 History 600-50-300 levETIRAcetam [Keppra TAB] 750 mg PO BID #90 tablet 04/14/20 07/04/20 07/03/20 Rx 750 Insulin NPH/Regular [NovoLIN 70/30] 20 unit SUB-Q QAM&QHS units 07/07/20 Unknown Rx Oxycodone HCl/Acetaminophen 1 each PO Q6HR PRN #10 07/07/20 Unknown Rx [Percocet 10/325 mg] Abacavir [Ziagen TAB] 600 mg PO DAILY tablet 07/12/20 Unknown Rx Acetaminophen [Acetaminophen TAB] 650 mg PO Q4H PRN tablet 07/12/20 Unknown Rx Arformoterol Nebu [Brovana Nebu] 15 mcg IH Q12HRT #1 ml 07/12/20 Unknown Rx Aspirin EC [Halfprin EC] 81 mg PO DAILY #30 tablet 07/12/20 Unknown Rx AtorvaSTATin [Lipitor] 80 mg PO QHS #30 tablet 07/12/20 Unknown Rx Budesonide [Pulmicort Respules] 0.5 mg IH Q12HRT nebu 07/12/20 Unknown Rx Clopidogrel [Plavix] 75 mg PO DAILY #30 tablet 07/12/20 Unknown Rx Dolutegravir [Tivicay] 50 mg PO DAILY tablet 07/12/20 Unknown Rx oxyCODONE /ACETAMINOPHEN [Percocet 1 tab PO Q6H PRN #14 tablet 07/12/20 Unknown Rx 5/325 mg] ED Neuro Physical Exam - General Limitations: No Limitations Suspected Stroke: Yes - NIHSS Assessment Interval: Baseline 1a. Level of Consciousness: alert/keenly responsive 1b. LOC Questions: answers both correctly 1c. LOC Commands: performs tasks correctly 2. Best Gaze: normal 3. Visual: no visual loss 4. Facial Palsy: normal symmetrical movement 5b. Motor Arm Right: no drift 5a. Motor Arm Left: some gravity effort 6a. Motor Leg Left: no gravity effort 6b. Motor Leg Right: no drift 7. Limb Ataxia: absent 8. Sensory: severe/total sensory loss 9. Best Language: no aphasia 10. Dysarthria: normal 11. Extinction/Inattention: no abnormality () Total Score: 7 Stroke Severity: Moderate Stroke Critical care attestation.: If time is entered above; I have spent that time in minutes in the direct care of this critically ill patient, excluding procedure time. ED Disposition Clinical Impression: Acute CVA (cerebrovascular accident) Disposition: [id number] OP ADMIT IP TO THIS HOSP Is pt being admited?: Yes Condition: Stable
[2020-08-11 09:27] LABS: Hematocrit 45.3 % (35.5-45.6); Hemoglobin 15.8 gm/dl (11.8-15.2); Mean Corpuscular HGB Conc 35 % (32-34); Mean Corpuscular Volume 91 fl (84-94); Platelet Count 149 K/mm3 (140-440); Red Cell Distribution Width 13.4 % (13.2-15.2)
--- NOTE | 2020-08-11 09:32 | Cat Scan Report ---
CT HEAD WITHOUT CONTRAST INDICATION / CLINICAL INFORMATION: neuro deficits <6hrs or sx present upon awakening. Code stroke. Symptom onset 2100 hours on 0. TECHNIQUE: All CT scans at this location are performed using CT dose reduction for ALARA by means of automated e xposure control. COMPARISON: Head CT 07/03/2020. MRI brain 04/13/2020 FINDINGS: HEMORRHAGE: No evidence of intracranial hemorrhage or extra-axial fluid collection. EXTRA-AXIAL SPACES: There is decreased sulcation over the lateral convexity of the right cerebral hem isphere. The right sylvian fissure is underdeveloped. There is increase in the size of the subarachno id space along the anterior pole of the right middle cranial fossa. These stable findings are likely on a developmental basis. VENTRICULAR SYSTEM: Developmental asymmetry of the lateral ventricles is noted, right larger than lef t. Ventricular system has an otherwise unremarkable appearance. CEREBRAL PARENCHYMA: A small area of decreased brain parenchymal attenuation is identified just above the head of the caudate nucleus. I do not identify a comparable finding on previous studies. This co uld represent the sequelae of small deep infarction new since 07/03/2020. This could also represent a volume averaging artifact with adjacent lateral ventricle. No additional areas of abnormal brain pare nchymal attenuation are identified. There is no indication of recent infarction. MIDLINE SHIFT OR HERNIATION: There are about 5 mm of [id number] midline shift at the level of the septum pellucidum. This is secondary to a relative hypoplasia of the right cerebral hemisphere compar ed to the left. CEREBELLUM / BRAINSTEM: Atrophy of the right cerebral peduncle is noted. MIDLINE STRUCTURES:No abnormalities of the pituitary gland or pineal region are identified. INTRACRANIAL VESSELS:No abnormalities are identified on this noncontrast head CT. ORBITS: visualized portions of the orbits have an unremarkable appearance. SOFT TISSUES of HEAD: No significant abnormality. CALVARIUM: Evaluation of bone windows reveals no abnormalities. PARANASAL SINUSES / MASTOID AIR CELLS: Paranasal sinuses are free from inflammatory mucosal disease. Mastoid air cells are normally pneumatized. ADDITIONAL FINDINGS: None. IMPRESSION: 1. 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 These finding s are stable. 2. Subtle area of decreased attenuation just above the head of the caudate nucleus on the right could represent a recent small deep infarction versus volume averaging artifact. I do not identify a betty rable abnormality on study dated 07/03/2020 CODE STROKE: Time of Communication (LOGISTICS OFFICER/CDT): 0825 Central standard time Licensed Practitioner Receiving Report: Dr. Abrams the [facility] emergency dep artment. Signer Name: Jamie Muhammad MD Signed: 08/11/2020 9:27 AM Workstation Name: [id number]
[2020-08-11 09:56] LABS: BUN/Creatinine Ratio 12; Blood Urea Nitrogen 11 mg/dL (9-20); Calcium 8.7 mg/dL (8.4-10.2); Hemolysis Index 5; INR 1.01 (0.87-1.13); Partial Thromboplastin Time 31.1 Sec. (24.2-36.6)
[2020-08-11 10:24] LABS: Eosinophils % (Manual) 0 % (0.0-4.3); Platelet Estimate Consistent w Auto; RBC Morphology Normal; Total Cells Counted 100
--- NOTE | 2020-08-11 10:52 | Cat Scan Report ---
CT angio neck INDICATION / CLINICAL INFORMATION: 55 years Male; stroke symptoms left sided weakness. TECHNIQUE: Thin cut axial images obtained through the head during IV bolus contrast administration. S agittal, coronal, and 3 plane MIP reconstructions performed by the technologist. NASCET type criteria used evaluate stenoses. All CT scans at this location are performed using CT dose reduction for ALAR A by means of automated exposure control. COMPARISON: The study is compared to the most recent of numerous previous emergent CTA neck dated 07/03/2020. FINDINGS: CAROTID ARTERIES: Unfortunately, the motion significantly degrades the image quality. However, there is continued mild atherosclerotic plaque involving visualized carotid bifurcations without significan t developing stenosis from 07/03/2020. VERTEBRAL ARTERIES: The vertebral arteries are also secured by the degree of motion. However, flow is seen distally without evidence of developing occlusion or significant focal stenosis at. ARCH: The arch of vessels also appear unremarkable without clear evidence of developing stenosis. ADDITIONAL FINDINGS: Remainder of the surrounding soft tissues are grossly normal. IMPRESSION: The study is limited by motion. However, there is no gross CT evidence of significant developing sten osis involving the cervical carotid or vertebral arteries by NASCET criteria from the previous exam o f 07/03/2020. Signer Name: Juan Truong MD Signed: 08/11/2020 10:48 AM Workstation Name: [id number]
--- NOTE | 2020-08-11 10:59 | Cat Scan Report ---
CT angio head INDICATION / CLINICAL INFORMATION: 55 years Male; stroke symptoms left sided weakness. TECHNIQUE: Thin cut axial images obtained through the head during IV bolus contrast administration. S agittal, coronal, and 3 plane MIP reconstructions performed by the technologist. NASCET type criteria used evaluate stenoses. Automated exposure control utilized for radiation reduction purposes. COMPARISON: The study is compared to the most recent of multiple previous exams dated 07/03/2020. FINDINGS: INTERNAL CAROTID ARTERIES: Unfortunately, there is significant movement of the patient and the study is of nondiagnostic quality. Additionally, the distal ICAs are not included in the [id number] on t his exam given the degree of movement. VERTEBROBASILAR SYSTEM: Flow is seen with an visualized segments of the basilar artery. CEREBRAL ARTERIES: The proximal anterior and middle cerebral arteries are also not included in the fi eld-of-view on this exam given the significant motion. However, contrast is enhancement is seen withi n the distal segments along the visualized cerebrum. Flow is noted at within the visualized proximal posterior cerebral arteries. ANEURYSM: The study is of nondiagnostic quality and assessment for intracranial aneurysm. ADDITIONAL FINDINGS: Remainder of the surrounding soft tissues are grossly normal. IMPRESSION: The study is significantly limited by motion as a detailed above. Flow is seen within the visualized included segments of the vertebral basilar system. Signer Name: Juan Truong MD Signed: 08/11/2020 10:54 AM Workstation Name: [id number]
[2020-08-11] MEDS ORDERED: METOCLOPRAMIDE 10 MG TAB PO PRN (11:29)
[2020-08-11] MEDS ORDERED: MAGNESIUM HYDROXIDE (MOM) ORAL LIQD UDC PO PRN (11:29)
[2020-08-11] MEDS ORDERED: PROMETHAZINE 25 MG RECT SUPP PR PRN (11:29)
[2020-08-11] MEDS ORDERED: ONDANSETRON 4 MG/2 ML INJ IV PRN (11:29)
[2020-08-11] MEDS ORDERED: ACETAMINOPHEN 325 MG TAB PO PRN ×2 (11:29→11:31)
--- NOTE | 2020-08-11 11:29 | History and Physical Report ---
History of Present Illness Chief complaint: I feel weak, left side History of present illness: 55 YO Male with HIV, CVA with LHP on DAPT, CP, SLE, CAD S/P CABG, NH, DM, PTSD, Depression, HTN, HLD, Asthma, Chronic Pain Syndrome, COPD, Seizure Disorder, Nicotine Dependence presents to ED for evaluation. Patient states that he was in his usual state of health at bedtime which was around 2100 hrs. patient reports awakening from sleep today around 0830 hrs. with left arm weakness and difficulty speaking. EMS was notified and upon arrival the patient was found to be in distress with a neurologic deficit. A code stroke was called and the patient was transported to [facility] for further care and evaluation of the aforemen tioned symptoms. Patient seen and evaluated in the emergency department. Lab and imaging studies reviewed. Patient found to have symptoms consistent with CVA with concomitant diagnosis of HIV, coronary artery disease, and seizure disorder. Tele-neurology consulted. Patient placed in observation status and admitted to medical floor for further care and evaluation. Patient denies fever, chills, chest pain, palpitation, productive cough, skin rash, recent ill contacts, or known exposure to COVID-19. Prior admission on 07/05/2020 reviewed. All medication listed at time of admission has been reconciled. Past History Past Medical History: acute NH, CAD, COPD, diabetes, hypertension, hyperlipidemia, other (See HPI) Past Surgical History: CABG Social history: , smoking. denies: alcohol abuse, prescription drug abuse Family history: diabetes, hypertension Medications and Allergies Allergies Allergy/AdvReac Type Severity Reaction Status Date / Time metoclopramide [From Reglan] Allergy Anaphylaxis Verified 05/08/19 16:45 prochlorperazine Allergy Anaphylaxis Verified 05/08/19 16:45 [From Compazine] promethazine [From Phenergan] Allergy Anaphylaxis Verified 05/08/19 16:45 rice Allergy Hives Verified 07/10/20 17:07 Home Medications Medication Instructions Recorded Confirmed Last Taken Type ARIPiprazole [Abilify TAB] 15 mg PO DAILY 06/05/19 08/11/20 07/03/20 History Albuterol Mdi (or & Nicu Only) 2 puff IH Q4H PRN 06/05/19 08/11/20 07/03/20 History [ProAir HFA Inhaler] Doxepin [SINEquan] 100 mg PO QHS 06/05/19 08/11/20 07/03/20 History Fluticasone/Salmeterol(Nf) [Advair 2 puff IH BID 06/05/19 08/11/20 07/03/20 History HFA 230-21 mcg] Furosemide [Lasix TAB] 40 mg PO QDAY 06/05/19 08/11/20 07/03/20 History 40 mg Ipratropium/Albuterol Sulfate 1 spray IH QID 06/05/19 08/11/20 07/03/20 History [Combivent Respimat] Mirtazapine [Remeron 15mg TAB] 15 mg PO QHS 06/05/19 08/11/20 07/03/20 16:00 History 15 mg Potassium Chloride [K-Dur] 20 meq PO QDAY 06/05/19 08/11/20 07/03/20 16:00 History 20 meq Rosuvastatin Calcium 40 mg PO QHS 06/05/19 08/11/20 07/03/20 History 40 busPIRone [Buspar] 10 mg PO BID 06/05/19 08/11/20 07/03/20 History 10 Nucynta 75 mg PO ONCE 04/13/20 08/11/20 07/03/20 16:00 History 75 mg Dicyclomine [Bentyl] 10 mg PO QID #30 capsule 04/14/20 08/11/20 07/03/20 Rx Docusate Sodium [Colace CAP] 100 mg PO BID PRN #30 capsule 04/14/20 08/11/20 07/03/20 Rx Metoprolol [Lopressor TAB] 100 mg PO BID #60 04/14/20 08/11/20 07/03/20 Rx 100 mg Phenytoin [Dilantin] 300 mg PO QHS #90 04/14/20 08/11/20 07/03/20 Rx 300 Triumeq 600-50-300 mg Tablet 600 mg PO DAILY 04/14/20 08/11/20 07/03/20 History 600-50-300 levETIRAcetam [Keppra TAB] 750 mg PO BID #90 tablet 04/14/20 08/11/20 07/03/20 Rx 750 Insulin NPH/Regular [NovoLIN 70/30] 20 unit SUB-Q QAM&QHS units 07/07/20 08/11/20 Unknown Rx Oxycodone HCl/Acetaminophen 1 each PO Q6HR PRN #10 07/07/20 08/11/20 Unknown Rx [Percocet 10/325 mg] Abacavir [Ziagen TAB] 600 mg PO DAILY tablet 07/12/20 08/11/20 Unknown Rx Acetaminophen [Acetaminophen TAB] 650 mg PO Q4H PRN tablet 07/12/20 08/11/20 Unknown Rx Arformoterol Nebu [Brovana Nebu] 15 mcg IH Q12HRT #1 ml 07/12/20 08/11/20 Unknown Rx Aspirin EC [Halfprin EC] 81 mg PO DAILY #30 tablet 07/12/20 08/11/20 Unknown Rx AtorvaSTATin [Lipitor] 80 mg PO QHS #30 tablet 07/12/20 08/11/20 Unknown Rx Budesonide [Pulmicort Respules] 0.5 mg IH Q12HRT nebu 07/12/20 08/11/20 Unknown Rx Clopidogrel [Plavix] 75 mg PO DAILY #30 tablet 07/12/20 08/11/20 Unknown Rx Dolutegravir [Tivicay] 50 mg PO DAILY tablet 07/12/20 08/11/20 Unknown Rx oxyCODONE /ACETAMINOPHEN [Percocet 1 tab PO Q6H PRN #14 tablet 07/12/20 08/11/20 Unknown Rx 5/325 mg] Review of Systems Constitutional: no weight loss, no weight gain, no fever, no chills Ears, nose, mouth and throat: no ear pain, no ear discharge, no decreased hearing, no nose pain, no nasal discharge Cardiovascular: no chest pain, no palpitations, no edema, no syncope Respiratory: no cough, no hemoptysis, no shortness of breath Gastrointestinal: no abdominal pain, no vomiting, no diarrhea, no change in bowel habits Genitourinary Male: no hematuria, no flank pain, no discharge, no urinary frequency, no nocturia Rectal: no pain, no incontinence, no bleeding Musculoskeletal: no neck stiffness, no arm numbness/tingling, no low back pain, no shooting leg pain Integumentary: no rash, no sores, no blisters Neurological: no paralysis, no weakness, no numbness, no tingling Psychiatric: no sleep disturbances, no hypersomnia, no suicidal ideation, no hallucinations Endocrine: no excessive thirst, no polyuria Hematologic/Lymphatic: no easy bruising, no easy bleeding, no lymphadenopathy Allergic/Immunologic: no persistent infections, no anaphylaxis Exam - Constitutional Vitals: Temp Pulse Resp BP Pulse Ox 98.6 F 77 19 116/90 97 08/11/20 10:01 08/11/20 11:15 08/11/20 11:15 08/11/20 11:15 08/11/20 11:15 General appearance: Present: mild distress - EENT Eyes: Present: PERRL ENT: hearing intact, clear oral mucosa - Neck Neck: Present: supple, normal ROM - Respiratory Respiratory effort: normal Respiratory: bilateral: CTA - Cardiovascular Heart Sounds: Present: S1 & S2. Absent: rub, click - Extremities Extremities: pulses symmetrical, No edema Peripheral Pulses: within normal limits - Abdominal General gastrointestinal: Present: soft, non-tender, non-distended, normal bowel sounds Male genitourinary: Present: normal - Integumentary Integumentary: Present: clear, warm, dry - Musculoskeletal Musculoskeletal: left sided weakness - Psychiatric Psychiatric: appropriate mood/affect, intact judgment & insight - Neurologic Neurologic: CNII-XII intact, no focal deficits, moves all extremities, no gait normal HEART Score - HEART Score Troponin: Troponin T < 0.010 ng/mL (0.00-0.029) 08/11/20 09:18 Results - Labs CBC & Chem 7: 08/11/20 09:18 08/11/20 09:18 Labs: Abnormal lab results 08/11/20 08/11/20 Range/Units 09:18 09:18 WBC 3.0 L (4.5-11.0) K/mm3 Hgb 15.8 H (11.8-15.2) gm/dl MCHC 35 H (32-34) % Monocytes % (Manual) 18.0 H (0.0-7.3) % Basophils % (Manual) 2.0 H (0.0-1.8) % Seg Neutrophils # Man 1.4 L (1.8-7.7) K/mm3 Lymphocytes # (Manual) 0.9 L (1.2-5.4) K/mm3 Sodium 136 L (137-145) mmol/L Glucose 103 H (75-100) mg/dL Assessment and Plan - Patient Problems (1) CVA (cerebral vascular accident) Current Visit: No Status: Acute Qualifiers: Precerebral and cerebral artery: middle cerebral artery Laterality of affected vessel: right Plan to address problem: CVA protocol: CT head, neuro check, seizure precautions, physical therapy cons ulted, Occupational Therapy consulted, speech therapy consulted (2) Chronic pain syndrome Current Visit: No Status: Acute Plan to address problem: Continue medical management, supportive care. Pain assessment as per nursing routine. (3) Diabetes Current Visit: No Status: Acute Plan to address problem: Sliding-scale insulin therapy, Accu-Chek, hypoglycemia protocol, consistent carbohydrate diet. (4) Left hemiparesis Current Visit: No Status: Acute Plan to address problem: Physical therapy consulted, supportive care (5) SLE (systemic lupus erythematosus) Current Visit: No Status: Acute Qualifiers: Systemic lupus erythematosus organ involvement: unspecified Plan to address problem: Supportive care, continue medical management, (6) HIV (human immunodeficiency virus infection) Current Visit: No Status: Chronic Qualifiers: HIV symptom status: asymptomatic Qualified Code(s): Z21 - Asymptomatic human immunodeficiency virus [HIV] infection status Plan to address problem: Continue medical management. Outpatient infectious disease service follow-up. (7) Hypertension Current Visit: No Status: Chronic Qualifiers: Hypertension type: essential hypertension Qualified Code(s): I10 - Essential (primary) hypertension Plan to address problem: Monitor blood pressure every shift, continue medical management. (8) Seizure disorder Current Visit: Yes Status: Acute Plan to address problem: Continue Keppra, supportive care, seizure precautions. (9) Nicotine dependence Current Visit: No Status: Chronic Qualifiers: Nicotine product type: cigarettes Plan to address problem: Smoking cessation counseling, supportive care, behavior change counseling, +15 minutes. (10) DVT prophylaxis Current Visit: Yes Status: Acute Plan to address problem: SCD to bilateral lower extremities while in bed, patient is ambulatory
[2020-08-11] MEDS ORDERED: oxyCODONE /ACETAMINOPHEN 5-325MG TAB PO PRN (11:31)
[2020-08-11] MEDS ORDERED: DOCUSATE SODIUM 100 MG CAP PO PRN (11:31)
--- NOTE | 2020-08-11 11:42 | Emergency Department Report ---
ED Neuro Deficit HPI - General Chief Complaint: Neuro Symptoms/Deficit Stated Complaint: STROKE Time Seen by Provider: 08/11/20 09:01 Source: patient, EMS Mode of arrival: Stretcher Limitations: No Limitations - History of Present Illness Initial Comments: Chief complaint: Left-sided weakness HPI: This is a 55-year-old male with history of cerebral palsy, coronary artery disease status post CABG, HIV, COPD, diabetes mellitus, SLE, PTSD, conversion di sorder, CHF, seizure disorder, chronic pain syndrome who presents with left- sided weakness and slurred speech. Last well time 2100 yesterday evening. He awakened with these new deficits. According to electronic record, patient was evaluated last month for stroke symptoms. At that time he had left facial droop and slurred speech. Patient takes Plavix. -: Sudden, This morning Location: speech, left arm, left leg History of same: No Place: home Severity: severe Quality: weak Improves With: none Worsens With: none Context: other (Awakened this morning with symptoms) Associated Symptoms: denies other symptoms - Related Data Home Medications: Home Medications Medication Instructions Recorded Confirmed Last Taken ARIPiprazole [Abilify TAB] 15 mg PO DAILY 06/05/19 07/04/20 07/03/20 Albuterol Mdi (or & Nicu Only) 2 puff IH Q4H PRN 06/05/19 07/04/20 07/03/20 [ProAir HFA Inhaler] Aspirin [Adult Aspirin] 81 mg PO DAILY 06/05/19 07/04/20 07/03/20 Doxepin [SINEquan] 100 mg PO QHS 06/05/19 07/04/20 07/03/20 Fluticasone/Salmeterol(Nf) [Advair 2 puff IH BID 06/05/19 07/04/20 07/03/20 HFA 230-21 mcg] Furosemide [Lasix TAB] 40 mg PO QDAY 06/05/19 07/04/20 07/03/20 40 mg Ipratropium/Albuterol Sulfate 1 spray IH QID 06/05/19 07/04/20 07/03/20 [Combivent Respimat] Mirtazapine [Remeron 15mg TAB] 15 mg PO QHS 06/05/19 07/04/20 07/03/20 16:00 15 mg Potassium Chloride [K-Dur] 20 meq PO QDAY 06/05/19 07/04/20 07/03/20 16:00 20 meq Rosuvastatin Calcium 40 mg PO QHS 06/05/19 07/04/20 07/03/20 40 busPIRone [Buspar] 10 mg PO BID 06/05/19 07/04/20 07/03/20 10 Nucynta 75 mg PO ONCE 04/13/20 07/04/20 07/03/20 16:00 75 mg Triumeq 600-50-300 mg Tablet 600 mg PO DAILY 04/14/20 07/04/20 07/03/20 600-50-300 Previous Rx's Medication Instructions Recorded Last Taken Type Dicyclomine [Bentyl] 10 mg PO QID #30 capsule 04/14/20 07/03/20 Rx Docusate Sodium [Colace CAP] 100 mg PO BID PRN #30 capsule 04/14/20 07/03/20 Rx Metoprolol [Lopressor TAB] 100 mg PO BID #60 04/14/20 07/03/20 Rx 100 mg Phenytoin [Dilantin] 300 mg PO QHS #90 04/14/20 07/03/20 Rx 300 levETIRAcetam [Keppra TAB] 750 mg PO BID #90 tablet 04/14/20 07/03/20 Rx 750 Insulin NPH/Regular [NovoLIN 70/30] 20 unit SUB-Q QAM&QHS units 07/07/20 Unknown Rx Oxycodone HCl/Acetaminophen 1 each PO Q6HR PRN #10 07/07/20 Unknown Rx [Percocet 10/325 mg] Abacavir [Ziagen TAB] 600 mg PO DAILY tablet 07/12/20 Unknown Rx Acetaminophen [Acetaminophen TAB] 650 mg PO Q4H PRN tablet 07/12/20 Unknown Rx Arformoterol Nebu [Brovana Nebu] 15 mcg IH Q12HRT #1 ml 07/12/20 Unknown Rx Aspirin EC [Halfprin EC] 81 mg PO DAILY #30 tablet 07/12/20 Unknown Rx AtorvaSTATin [Lipitor] 80 mg PO QHS #30 tablet 07/12/20 Unknown Rx Budesonide [Pulmicort Respules] 0.5 mg IH Q12HRT nebu 07/12/20 Unknown Rx Clopidogrel [Plavix] 75 mg PO DAILY #30 tablet 07/12/20 Unknown Rx Dolutegravir [Tivicay] 50 mg PO DAILY tablet 07/12/20 Unknown Rx oxyCODONE /ACETAMINOPHEN [Percocet 1 tab PO Q6H PRN #14 tablet 07/12/20 Unknown Rx 5/325 mg] Allergies/Adverse Reactions: Allergies Allergy/AdvReac Type Severity Reaction Status Date / Time metoclopramide [From Reglan] Allergy Anaphylaxis Verified 05/08/19 16:45 prochlorperazine Allergy Anaphylaxis Verified 05/08/19 16:45 [From Compazine] promethazine [From Phenergan] Allergy Anaphylaxis Verified 05/08/19 16:45 rice Allergy Hives Verified 07/10/20 17:07 ED Review of Systems ROS: Stated complaint: STROKE Other details as noted in HPI Comment: All other systems reviewed and negative Constitutional: denies: fever, malaise Respiratory: denies: cough, shortness of breath Cardiovascular: denies: chest pain Gastrointestinal: denies: abdominal pain, nausea, vomiting Neurological: weakness, numbness. denies: headache, paresthesias, confusion, abnormal gait ED Past Medical Hx - Past Medical History Previous Medical History?: Yes Hx Hypertension: Yes Hx CVA: Yes (left sided weakness) Hx Heart Attack/AMI: Yes Hx Congestive Heart Failure: Yes Hx Diabetes: Yes Hx Seizures: Yes Hx Psychiatric Treatment: Yes (PTSD,depression) Hx Asthma: Yes Hx COPD: Yes Hx HIV: Yes Additional medical history: Cerebral palsy - Surgical History Additional Surgical History: CABG - Social History Smoking Status: Current Every Day Smoker - Medications Home Medications: Home Medications Medication Instructions Recorded Confirmed Last Taken Type ARIPiprazole [Abilify TAB] 15 mg PO DAILY 06/05/19 07/04/20 07/03/20 History Albuterol Mdi (or & Nicu Only) 2 puff IH Q4H PRN 06/05/19 07/04/20 07/03/20 History [ProAir HFA Inhaler] Aspirin [Adult Aspirin] 81 mg PO DAILY 06/05/19 07/04/20 07/03/20 History Doxepin [SINEquan] 100 mg PO QHS 06/05/19 07/04/20 07/03/20 History Fluticasone/Salmeterol(Nf) [Advair 2 puff IH BID 06/05/19 07/04/20 07/03/20 History HFA 230-21 mcg] Furosemide [Lasix TAB] 40 mg PO QDAY 06/05/19 07/04/20 07/03/20 History 40 mg Ipratropium/Albuterol Sulfate 1 spray IH QID 06/05/19 07/04/20 07/03/20 History [Combivent Respimat] Mirtazapine [Remeron 15mg TAB] 15 mg PO QHS 06/05/19 07/04/20 07/03/20 16:00 History 15 mg Potassium Chloride [K-Dur] 20 meq PO QDAY 06/05/19 07/04/20 07/03/20 16:00 History 20 meq Rosuvastatin Calcium 40 mg PO QHS 06/05/19 07/04/20 07/03/20 History 40 busPIRone [Buspar] 10 mg PO BID 06/05/19 07/04/20 07/03/20 History 10 Nucynta 75 mg PO ONCE 04/13/20 07/04/20 07/03/20 16:00 History 75 mg Dicyclomine [Bentyl] 10 mg PO QID #30 capsule 04/14/20 07/04/20 07/03/20 Rx Docusate Sodium [Colace CAP] 100 mg PO BID PRN #30 capsule 04/14/20 07/04/20 07/03/20 Rx Metoprolol [Lopressor TAB] 100 mg PO BID #60 04/14/20 07/04/20 07/03/20 Rx 100 mg Phenytoin [Dilantin] 300 mg PO QHS #90 04/14/20 07/04/20 07/03/20 Rx 300 Triumeq 600-50-300 mg Tablet 600 mg PO DAILY 04/14/20 07/04/20 07/03/20 History 600-50-300 levETIRAcetam [Keppra TAB] 750 mg PO BID #90 tablet 04/14/20 07/04/20 07/03/20 Rx 750 Insulin NPH/Regular [NovoLIN 70/30] 20 unit SUB-Q QAM&QHS units 07/07/20 Unknown Rx Oxycodone HCl/Acetaminophen 1 each PO Q6HR PRN #10 07/07/20 Unknown Rx [Percocet 10/325 mg] Abacavir [Ziagen TAB] 600 mg PO DAILY tablet 07/12/20 Unknown Rx Acetaminophen [Acetaminophen TAB] 650 mg PO Q4H PRN tablet 07/12/20 Unknown Rx Arformoterol Nebu [Brovana Nebu] 15 mcg IH Q12HRT #1 ml 07/12/20 Unknown Rx Aspirin EC [Halfprin EC] 81 mg PO DAILY #30 tablet 07/12/20 Unknown Rx AtorvaSTATin [Lipitor] 80 mg PO QHS #30 tablet 07/12/20 Unknown Rx Budesonide [Pulmicort Respules] 0.5 mg IH Q12HRT nebu 07/12/20 Unknown Rx Clopidogrel [Plavix] 75 mg PO DAILY #30 tablet 07/12/20 Unknown Rx Dolutegravir [Tivicay] 50 mg PO DAILY tablet 07/12/20 Unknown Rx oxyCODONE /ACETAMINOPHEN [Percocet 1 tab PO Q6H PRN #14 tablet 07/12/20 Unknown Rx 5/325 mg] ED Neuro Physical Exam - General Limitations: No Limitations General appearance: alert, in no apparent distress Suspected Stroke: Yes - Head Head exam: Present: atraumatic, normocephalic - Eye Eye exam: Present: normal appearance - ENT ENT exam: Present: mucous membranes moist - Neck Neck exam: Present: normal inspection, full ROM - Respiratory Respiratory exam: Present: normal lung sounds bilaterally. Absent: respiratory distress, wheezes, rales, rhonchi - Cardiovascular Cardiovascular Exam: Present: regular rate, normal rhythm, normal heart sounds. Absent: systolic murmur, diastolic murmur, rubs, gallop - GI/Abdominal GI/Abdominal exam: Present: soft, normal bowel sounds. Absent: distended, tenderness, guarding, rebound - Rectal Rectal exam: Present: deferred - Extremities Exam Extremities exam: Present: normal inspection - Neurological Exam Neurological exam: Present: alert, oriented X3 - NIHSS Assessment Interval: Baseline 1a. Level of Consciousness: alert/keenly responsive 1b. LOC Questions: answers both correctly 1c. LOC Commands: performs tasks correctly 2. Best Gaze: normal 3. Visual: no visual loss 4. Facial Palsy: minor paralysis 5b. Motor Arm Right: no drift 5a. Motor Arm Left: no gravity effort 6a. Motor Leg Left: no gravity effort 6b. Motor Leg Right: no drift 7. Limb Ataxia: absent 8. Sensory: mild/moderate sensory loss 9. Best Language: no aphasia 10. Dysarthria: normal 11. Extinction/Inattention: no abnormality Total Score: 8 Stroke Severity: Moderate Stroke - Psychiatric Psychiatric exam: Present: normal affect, normal mood - Skin Skin exam: Present: warm, dry, intact, normal color. Absent: rash ED Course Vital Signs 08/11/20 08/11/20 08/11/20 09:16 10:01 11:15 Temperature 98.6 F Pulse Rate 89 77 Respiratory 12 19 Rate Blood Pressure 116/90 Blood Pressure 108/83 [Right] O2 Sat by Pulse 95 97 97 Oximetry - Lab Data Result diagrams: 08/11/20 09:18 08/11/20 09:18 Lab Results 08/11/20 08/11/20 08/11/20 Range/Units 09:18 09:18 09:18 WBC 3.0 L (4.5-11.0) K/mm3 RBC 5.00 (3.65-5.03) M/mm3 Hgb 15.8 H (11.8-15.2) gm/dl Hct 45.3 (35.5-45.6) % MCV 91 (84-94) fl MCH 32 (28-32) pg MCHC 35 H (32-34) % RDW 13.4 (13.2-15.2) % Plt Count 149 (140-440) K/mm3 Add Manual Diff Complete Total Counted 100 Seg Neutrophils % Reducing Salon Attendant Seg Neuts % (Manual) 45.0 (40.0-70.0) % Band Neutrophils % 1.0 % Lymphocytes % (Manual) 31.0 (13.4-35.0) % Reactive Lymphs % (Man) 1.0 % Monocytes % (Manual) 18.0 H (0.0-7.3) % Eosinophils % (Manual) 0 (0.0-4.3) % Basophils % (Manual) 2.0 H (0.0-1.8) % Metamyelocytes % 2.0 % Myelocytes % 0 % Promyelocytes % 0 % Blast Cells % 0 % Nucleated RBC % Not Reportable Seg Neutrophils # Man 1.4 L (1.8-7.7) K/mm3 Band Neutrophils # 0.0 K/mm3 Lymphocytes # (Manual) 0.9 L (1.2-5.4) K/mm3 Abs React Lymphs (Man) 0.0 K/mm3 Monocytes # (Manual) 0.5 (0.0-0.8) K/mm3 Eosinophils # (Manual) 0.0 (0.0-0.4) K/mm3 Basophils # (Manual) 0.1 (0.0-0.1) K/mm3 Metamyelocytes # 0.1 K/mm3 Myelocytes # 0.0 K/mm3 Promyelocytes # 0.0 K/mm3 Blast Cells # 0.0 K/mm3 WBC Morphology Not Reportable Hypersegmented Neuts Not Reportable Hyposegmented Neuts Not Reportable Hypogranular Neuts Not Reportable Smudge Cells Not Reportable Toxic Granulation Not Reportable Toxic Vacuolation Not Reportable Dohle Bodies Not Reportable Pelger-Huet Anomaly Not Reportable Michael Rods Not Reportable Platelet Estimate Consistent w auto Clumped Platelets Not Reportable Plt Clumps, EDTA Not Reportable Large Platelets Not Reportable Giant Platelets Not Reportable Platelet Satelliting Not Reportable Plt Morphology Comment Not Reportable RBC Morphology Normal Dimorphic RBCs Not Reportable Polychromasia Not Reportable Hypochromasia Not Reportable Poikilocytosis Not Reportable Anisocytosis Not Reportable Microcytosis Not Reportable Macrocytosis Not Reportable Spherocytes Not Reportable Pappenheimer Bodies Not Reportable Sickle Cells Not Reportable Target Cells Not Reportable Tear Drop Cells Not Reportable Ovalocytes Not Reportable Helmet Cells Not Reportable Lowe-[place] Bodies Not Reportable [place] Rings Not Reportable Morrill Cells Not Reportable Bite Cells Not Reportable Crenated Cell Not Reportable Elliptocytes Not Reportable Acanthocytes (Spur) Not Reportable Rouleaux Not Reportable Hemoglobin C Crystals Not Reportable Schistocytes Not Reportable Malaria parasites Not Reportable Kirill Bodies Not Reportable Hem Pathologist Commnt No PT 13.5 (12.2-14.9) Sec. INR 1.01 (0.87-1.13) APTT 31.1 (24.2-36.6) Sec. Thrombin Time (15.1-19.6) Sec. Sodium 136 L (137-145) mmol/L Potassium 4.1 (3.6-5.0) mmol/L Chloride 102.4 (98-107) mmol/L Carbon Dioxide 26 (22-30) mmol/L Anion Gap 12 mmol/L BUN 11 (9-20) mg/dL Creatinine 0.9 (0.8-1.3) mg/dL Estimated GFR > 60 ml/min BUN/Creatinine Ratio 12 % Glucose 103 H (75-100) mg/dL Calcium 8.7 (8.4-10.2) mg/dL Troponin T < 0.010 (0.00-0.029) ng/mL 08/11/20 Range/Units 09:18 WBC (4.5-11.0) K/mm3 RBC (3.65-5.03) M/mm3 Hgb (11.8-15.2) gm/dl Hct (35.5-45.6) % MCV (84-94) fl MCH (28-32) pg MCHC (32-34) % RDW (13.2-15.2) % Plt Count (140-440) K/mm3 Add Manual Diff Total Counted Seg Neutrophils % Seg Neuts % (Manual) (40.0-70.0) % Band Neutrophils % % Lymphocytes % (Manual) (13.4-35.0) % Reactive Lymphs % (Man) % Monocytes % (Manual) (0.0-7.3) % Eosinophils % (Manual) (0.0-4.3) % Basophils % (Manual) (0.0-1.8) % Metamyelocytes % % Myelocytes % % Promyelocytes % % Blast Cells % % Nucleated RBC % Seg Neutrophils # Man (1.8-7.7) K/mm3 Band Neutrophils # K/mm3 Lymphocytes # (Manual) (1.2-5.4) K/mm3 Abs React Lymphs (Man) K/mm3 Monocytes # (Manual) (0.0-0.8) K/mm3 Eosinophils # (Manual) (0.0-0.4) K/mm3 Basophils # (Manual) (0.0-0.1) K/mm3 Metamyelocytes # K/mm3 Myelocytes # K/mm3 Promyelocytes # K/mm3 Blast Cells # K/mm3 WBC Morphology Hypersegmented Neuts Hyposegmented Neuts Hypogranular Neuts Smudge Cells Toxic Granulation Toxic Vacuolation Dohle Bodies Pelger-Huet Anomaly Michael Rods Platelet Estimate Clumped Platelets Plt Clumps, EDTA Large Platelets Giant Platelets Platelet Satelliting Plt Morphology Comment RBC Morphology Dimorphic RBCs Polychromasia Hypochromasia Poikilocytosis Anisocytosis Microcytosis Macrocytosis Spherocytes Pappenheimer Bodies Sickle Cells Target Cells Tear Drop Cells Ovalocytes Helmet Cells Lowe-Stonefort Bodies [place] Rings Morrill Cells Bite Cells Crenated Cell Elliptocytes Acanthocytes (Spur) Rouleaux Hemoglobin C Crystals Schistocytes Malaria parasites Kirill Bodies Hem Pathologist Commnt PT (12.2-14.9) Sec. INR (0.87-1.13) APTT (24.2-36.6) Sec. Thrombin Time 18.4 (15.1-19.6) Sec. Sodium (137-145) mmol/L Potassium (3.6-5.0) mmol/L Chloride (98-107) mmol/L Carbon Dioxide (22-30) mmol/L Anion Gap mmol/L BUN (9-20) mg/dL Creatinine (0.8-1.3) mg/dL Estimated GFR ml/min BUN/Creatinine Ratio % Glucose (75-100) mg/dL Calcium (8.4-10.2) mg/dL Troponin T (0.00-0.029) ng/mL - EKG Data -: EKG Interpreted by Nh EKG shows normal: sinus rhythm, axis, intervals, QRS complexes Rate: normal 08/11/20 11:46 EKG obtained 922 EKG interpreted by co Normal sinus rhythm rate 90 bpm normal axis normal intervals no ST elevation nonspecific T wave pattern - Radiology Data Radiology results: report reviewed CT of the head: 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 - Medical Decision Making Mr. Babcock 55-year-old male with history of coronary disease status post CABG, previous CVA. Patient is taking Plavix. NIH score 8. Last well-known time 2100. TPA is not indicated considering symptoms began potentially greater than 4.5 hours. Upon observation, patient has a presentation. When I reexamined patient. He is laying on his affected left side. He does have spontaneous movement of the left leg. His exam does not appear to be consistent. Patient has had 5 evaluations for stroke symptoms since June of last year. Including for total CT angiograms of the head and neck. Considering patient has not exhibited previous large vessel occlusion, I do not feel repeat of CT angiogram head and neck is necessary considering poor study quality due to motion artifact. Patient is admitted to the hospital service. Critical care attestation.: If time is entered above; I have spent that time in minutes in the direct care of this critically ill patient, excluding procedure time. ED Disposition Clinical Impression: Acute CVA (cerebrovascular accident) Disposition: OP ADMIT IP TO THIS HOSP Is pt being admited?: Yes Does the pt Need Aspirin: No Condition: Stable
[2020-08-11] MEDS: DICYCLOMINE 10 MG CAP PO SCH ×2 (16:07→17:49)
[2020-08-11] MEDS ORDERED: DICYCLOMINE 10 MG CAP ONE (17:31)
[2020-08-11] MEDS ORDERED: ARFORMOTEROL 15 MCG/2 ML NEBU IH ONE (21:52)
[2020-08-11] MEDS ORDERED: BUDESONIDE 0.5 MG/2 ML NEBU IH ONE (21:52)
[2020-08-11] MEDS: BUDESONIDE 0.5 MG/2 ML NEBU IH SCH (21:55)
[2020-08-11] MEDS: ARFORMOTEROL 15 MCG/2 ML NEBU IH SCH (21:55)
[2020-08-12] MEDS ORDERED: PHENYTOIN 100 MG CAPSULE.ER ONE (00:10)
[2020-08-12] MEDS ORDERED: DICYCLOMINE 10 MG CAP ONE (00:10)
[2020-08-12] MEDS ORDERED: levETIRAcetam 500 MG TAB PO ONE (00:12)
[2020-08-12] MEDS ORDERED: METOPROLOL SUCCINATE XL 100 MG TAB PO ONE (00:13)
[2020-08-12] MEDS ORDERED: MIRTAZAPINE 15 MG TAB ONE (00:13)
[2020-08-12] MEDS: DICYCLOMINE 10 MG CAP PO SCH ×6 (00:19→21:07)
[2020-08-12] MEDS: MIRTAZAPINE 15 MG TAB PO SCH ×2 (00:20→21:09)
[2020-08-12] MEDS: levETIRAcetam 500 MG TAB PO SCH ×4 (00:20→21:07)
[2020-08-12] MEDS: PHENYTOIN 100 MG CAPSULE.ER PO SCH ×2 (00:21→21:06)
[2020-08-12] MEDS: METOPROLOL TARTRATE 100 MG TAB PO SCH ×4 (00:23→21:09)
[2020-08-12] MEDS: DOXEPIN 100 MG CAP PO SCH ×2 (00:24→21:09)
[2020-08-12 05:56] LABS: Chol/HDL Ratio 4.77 %
[2020-08-12] MEDS ORDERED: NUCYNTA 75 MG PO SCH (09:30)
[2020-08-12] MEDS ORDERED: ASPIRIN EC 81 MG TAB PO SCH (10:00)
[2020-08-12] MEDS ORDERED: TRIUMEQ PO SCH (10:00)
[2020-08-12] MEDS: BUDESONIDE 0.5 MG/2 ML NEBU IH SCH ×2 (10:23→22:47)
[2020-08-12] MEDS: ARFORMOTEROL 15 MCG/2 ML NEBU IH SCH ×2 (10:23→22:46)
[2020-08-12] MEDS: POTASSIUM CHLORIDE ER 20 MEQ TAB PO SCH ×2 (10:58→11:11)
[2020-08-12] MEDS: CLOPIDOGREL 75 MG TAB PO SCH (10:58)
[2020-08-12] MEDS: ASPIRIN 325 MG TAB PO SCH ×2 (10:58→11:10)
[2020-08-12] MEDS: FUROSEMIDE 40 MG TAB PO SCH (10:59)
[2020-08-12] MEDS: ABACAVIR 300 MG TAB PO SCH (10:59)
[2020-08-12] MEDS: DOLUTEGRAVIR 50 MG TAB PO SCH (11:00)
[2020-08-12] MEDS: ARIPiprazole 15 MG TAB PO SCH ×2 (11:00→11:10)
[2020-08-12] MEDS: busPIRone 10 MG TAB PO SCH ×3 (11:01→21:07)
--- NOTE | 2020-08-12 11:04 | Discharge Summary ---
Providers - Providers Date of Admission: 08/11/20 11:29 Attending physician: JIMENEZ FLORES MD 08/11/20 11:30 Occupational Therapy Evaluate and Treat [CONS] Routine Comment: Reason For Exam: Neuro deficits Physical Therapy Evaluation and Treat [CONS] Routine Comment: Reason For Exam: Neuro deficits 08/11/20 11:31 Speech Therapy Evaluation and Treat [CONS] Routine Reason For Exam: swallow eval 08/12/20 09:28 Consult to Physician [CONS] Routine Comment: Consulting Provider: SUSU IRAHETA Physician Instructions: Reason For Exam: CVA Primary care physician: [facility] M Hospitalization Condition: Stable Hospital course: 55 YO Male with HIV, CVA with LHP on DAPT, CP, SLE, CAD S/P CABG, MS, DM, PTSD, Depression, HTN, HLD, Asthma, Chronic Pain Syndrome, COPD, Seizure Disorder, Nicotine Dependence presents to ED for evaluation. Patient states that he was in his usual state of health at bedtime which was around 2100 hrs. patient reports awakening from sleep today around 0830 hrs. with left arm weakness and difficulty speaking. EMS was notified and upon arrival the patient was found to be in distress with a neurologic deficit. A code stroke was called and the patient was transported to [facility] for further care and evaluation of the aforementioned symptoms. Patient seen and evaluated in the emergency department. Lab and imaging studies reviewed. Patient found to have symptoms consistent with CVA with concomitant diagnosis of HIV, coronary artery disease, and seizure disorder. Tele-neurology consulted. Patient placed in observation status and admitted to medical floor for further care and evaluation. Patient denies fever, chills, chest pain, palpitation, productive cough, skin rash, recent ill contacts, or known exposure to COVID-19. Prior admission on 07/05/2020 reviewed. All medication listed at time of admission has been reconciled. CT head was unremarkable QUIT ETOH AND TOBACCO PERSISTENT REFUSING MEDS PER NURSING STAFF LEFT UPPER EXT WEAKNESS APPEARS TO BE HOMELESS BASED ON ALL CLOTHS AND BAG IN ROOM BUT STATES HE HAS A RESIDENT. Positive COVID 19 confirmed from outside facility at [place] per the patient. Stable, now, 95% on room air will discharge on steroids. No respiratory status again or abnormality noted. pateint advised of isolation and community/family prevention of spread and to monitor oxygen levels. MRI is negative for CVA (1) CVA (cerebral vascular accident) Current Visit: No Status: Acute Qualifiers: Precerebral and cerebral artery: middle cerebral artery Laterality of affected vessel: right Plan to address problem: CVA protocol: CT head, neuro check, seizure precautions, physical therapy consulted, Occupational Therapy consulted, speech therapy consulted Will obtain MRI of the brain (2) Chronic pain syndrome Current Visit: No Status: Acute Plan to address problem: Continue medical management, supportive care. Pain assessment as per nursing routine. (3) Diabetes Current Visit: No Status: Acute Plan to address problem: Sliding-scale insulin therapy, Accu-Chek, hypoglycemia protocol, consistent carbohydrate diet. (4) Left hemiparesis Current Visit: No Status: Acute Plan to address problem: Physical therapy consulted, supportive care (5) SLE (systemic lupus erythematosus) Current Visit: No Status: Acute Qualifiers: Systemic lupus erythematosus organ involvement: unspecified Plan to address problem: Supportive care, continue medical management, (6) HIV (human immunodeficiency virus infection) Current Visit: No Status: Chronic Qualifiers: HIV symptom status: asymptomatic Qualified Code(s): Z21 - Asymptomatic human immunodeficiency virus [HIV] infection status Plan to address problem: Continue medical management. Outpatient infectious disease service follow-up. (7) Hypertension Current Visit: No Status: Chronic Qualifiers: Hypertension type: essential hypertension Qualified Code(s): I10 - Essential (primary) hypertension Plan to address problem: Monitor blood pressure every shift, continue medical management. (8) Seizure disorder Current Visit: Yes Status: Acute Plan to address problem: Continue Keppra, supportive care, seizure precautions. (9) Nicotine dependence Current Visit: No Status: Chronic Qualifiers: Nicotine product type: cigarettes Plan to address problem: Smoking cessation counseling, supportive care, behavior change counseling, +15 minutes. (10) DVT prophylaxis Current Visit: Yes Status: Acute Plan to address problem: SCD to bilateral lower extremities while in bed, patient is ambulatory Disposition: DC-01 TO HOME OR SELFCARE Time spent for discharge: 35 MINS Core Measure Documentation - Palliative Care Palliative Care/ Comfort Measures: Not Applicable - Core Measures Any of the following diagnoses?: none Exam - Physical Exam Narrative exam: VITAL SIGNS: Reviewed. GENERAL: The patient appears normally developed, Vital signs as documented. HEAD: No signs of head trauma. EYES: Pupils are equal. Extraocular motions intact. EARS: Hearing grossly intact. MOUTH: Oropharynx is normal. NECK: No adenopathy, no JVD. CHEST: Chest with clear breath sounds bilaterally. No wheezes, rales, or rhonchi. CARDIAC: Regular rate and rhythm. S1 and S2, without murmurs, gallops, or rubs. VASCULAR: No Edema. Peripheral pulses normal and equal in all extremities. ABDOMEN: Soft, non tender and non distended. No rebound or guarding, and no masses palpated. Bowel Sounds normal. MUSCULOSKELETAL: Good range of motion of all major joints. Extremities without clubbing, cyanosis or edema. NEUROLOGIC EXAM: Alert and oriented x 3, left-sided hemiparesis motor strength 3/5 at baseline per my discussion today with the patient speech normal. Follows commands. PSYCHIATRIC: Mood normal. SKIN: detail exam as documented in skin assessment - Constitutional Vitals: Temp Pulse Resp BP Pulse Ox 97.9 F 72 16 97/63 95 08/12/20 08:04 08/12/20 10:58 08/12/20 08:04 08/12/20 10:58 08/12/20 08:04 Plan Activity: advance as tolerated, fall precautions Diet: low fat Special Instructions: smoking cessation, other (etoh cessation AA meetings if needed) Additional Instructions: follow with PCP at [place]. wear mask. socailly distance/isolate for at least 14 days. monitor oxygen level and return to hospital if oxygen saturation is less than 92% with activity or at rest Follow up with: NURIS PATTERSON MD [Primary Care Provider] - 7 Days PATI PAULSON MD [Referring] - 7 Days DAKOTAH NOEL DO [Staff Physician] - 7 Days Prescriptions: AtorvaSTATin [Lipitor] 80 mg PO QHS #30 tablet Aspirin 325 mg PO QDAY #30 tablet Dexamethasone [Decadron] 6 mg PO DAILY #10 tablet Other Discharge Orders: Occupational Therapy (Amb) Location: None Selected
--- NOTE | 2020-08-12 16:51 | Consultation ---
History of Present Illness Consult date: 08/12/20 Reason for Consult: left-sided weakness and slurred speech History of present illness: This is a comprehensive neurological consultation on Mr. Phan Barroso who is a very pleasant 55-year-old gentleman presented with the symptoms of left-sided weakness and slurred speech. He has history of cerebral palsy seizure disorder HIV, and left-sided weakness in the past but now he reported that he cannot move on his left side of the body. According to the chart and nursing report that he has had left-sided weakness and therefore primary team is about to discharge him.his CT scan of the brain did show right subcortical low density area consistent with?old versus new stroke. Patient reports that he has been taking aspirin and he did not miss the dose of it. I reviewed his H&P performed by the admitting team. Past History Past Medical History: acute [place], CAD, COPD, diabetes, hypertension, hyperlipidem ia, other (See HPI) Past Surgical History: CABG Social history: , smoking. denies: alcohol abuse, prescription drug abuse Family history: diabetes, hypertension Medications and Allergies Allergies Allergy/AdvReac Type Severity Reaction Status Date / Time metoclopramide [From Reglan] Allergy Anaphylaxis Verified 05/08/19 16:45 prochlorperazine Allergy Anaphylaxis Verified 05/08/19 16:45 [From Compazine] promethazine [From Phenergan] Allergy Anaphylaxis Verified 05/08/19 16:45 rice Allergy Hives Verified 07/10/20 17:07 Home Medications Medication Instructions Recorded Confirmed Last Taken Type ARIPiprazole [Abilify TAB] 15 mg PO DAILY 06/05/19 08/11/20 07/03/20 History Albuterol Mdi (or & Nicu Only) 2 puff IH Q4H PRN 06/05/19 08/11/20 07/03/20 History [ProAir HFA Inhaler] Doxepin [SINEquan] 100 mg PO QHS 06/05/19 08/11/20 07/03/20 History Fluticasone/Salmeterol(Nf) [Advair 2 puff IH BID 06/05/19 08/11/20 07/03/20 History HFA 230-21 mcg] Furosemide [Lasix TAB] 40 mg PO QDAY 06/05/19 08/11/20 07/03/20 History 40 mg Ipratropium/Albuterol Sulfate 1 spray IH QID 06/05/19 08/11/20 07/03/20 History [Combivent Respimat] Mirtazapine [Remeron 15mg TAB] 15 mg PO QHS 06/05/19 08/11/20 07/03/20 16:00 History 15 mg Potassium Chloride [K-Dur] 20 meq PO QDAY 06/05/19 08/11/20 07/03/20 16:00 History 20 meq busPIRone [Buspar] 10 mg PO BID 06/05/19 08/11/20 07/03/20 History 10 Nucynta 75 mg PO ONCE 04/13/20 08/11/20 07/03/20 16:00 History 75 mg Dicyclomine [Bentyl] 10 mg PO QID #30 capsule 04/14/20 08/11/20 07/03/20 Rx Docusate Sodium [Colace CAP] 100 mg PO BID PRN #30 capsule 04/14/20 08/11/20 07/03/20 Rx Metoprolol [Lopressor TAB] 100 mg PO BID #60 04/14/20 08/11/20 07/03/20 Rx 100 mg Phenytoin [Dilantin] 300 mg PO QHS #90 04/14/20 08/11/20 07/03/20 Rx 300 Triumeq 600-50-300 mg Tablet 600 mg PO DAILY 04/14/20 08/11/20 07/03/20 History 600-50-300 levETIRAcetam [Keppra TAB] 750 mg PO BID #90 tablet 04/14/20 08/11/20 07/03/20 Rx 750 Insulin NPH/Regular [NovoLIN 70/30] 20 unit SUB-Q QAM&QHS units 07/07/20 08/11/20 Unknown Rx Oxycodone HCl/Acetaminophen 1 each PO Q6HR PRN #10 07/07/20 08/11/20 Unknown Rx [Percocet 10/325 mg] Abacavir [Ziagen TAB] 600 mg PO DAILY tablet 07/12/20 08/11/20 Unknown Rx Acetaminophen [Acetaminophen TAB] 650 mg PO Q4H PRN tablet 07/12/20 08/11/20 Unknown Rx Arformoterol Nebu [Brovana Nebu] 15 mcg IH Q12HRT #1 ml 07/12/20 08/11/20 Unknown Rx Budesonide [Pulmicort Respules] 0.5 mg IH Q12HRT nebu 07/12/20 08/11/20 Unknown Rx Clopidogrel [Plavix] 75 mg PO DAILY #30 tablet 07/12/20 08/11/20 Unknown Rx Dolutegravir [Tivicay] 50 mg PO DAILY tablet 07/12/20 08/11/20 Unknown Rx Aspirin 325 mg PO QDAY #30 tablet 08/12/20 Unknown Rx AtorvaSTATin [Lipitor] 80 mg PO QHS #30 tablet 08/12/20 Unknown Rx Active Meds: Active Medications Abacavir Sulfate (Ziagen) 600 mg PO DAILY [facility] Last Admin: 08/12/20 10:59 Dose: 600 mg Documented by: Acetaminophen (Tylenol) 650 mg PO Q4H PRN PRN Reason: Pain, Mild (1-3) Arformoterol Tartrate (Brovana Nebu) 15 mcg IH Q12HRT [facility] Last Admin: 08/12/20 10:23 Dose: 15 mcg Documented by: Aripiprazole (Abilify) 15 mg PO DAILY [facility] Last Admin: 08/12/20 11:10 Dose: Not Given Documented by: Aspirin (Aspirin) 325 mg PO QDAY [facility] Last Admin: 08/12/20 11:10 Dose: Not Given Documented by: Atorvastatin Calcium (Lipitor) 40 mg PO QHS [facility] Last Admin: 08/12/20 00:20 Dose: 40 mg Documented by: Bisacodyl (Dulcolax) 10 mg IA QDAY PRN PRN Reason: Constipation Budesonide (Pulmicort) 0.5 mg IH Q12HRT [facility] Last Admin: 08/12/20 10:23 Dose: 0.5 mg Documented by: Buspirone HCl (Buspar) 10 mg PO BID [facility] Last Admin: 08/12/20 11:11 Dose: Not Given Documented by: Clopidogrel Bisulfate (Plavix) 75 mg PO DAILY [facility] Last Admin: 08/12/20 10:58 Dose: 75 mg Documented by: Dicyclomine HCl (Bentyl) 10 mg PO QID [facility] Last Admin: 08/12/20 14:27 Dose: Not Given Documented by: Docusate Sodium (Colace) 100 mg PO BID PRN PRN Reason: Constipation Doxepin HCl (Sinequan) 100 mg PO QHS [facility] Last Admin: 08/12/20 00:24 Dose: 100 mg Documented by: Furosemide (Lasix) 40 mg PO QDAY [facility] Last Admin: 08/12/20 10:59 Dose: Not Given Documented by: Lamivudine (Epivir) 300 mg PO QDAY [facility] Last Admin: 08/12/20 11:11 Dose: Not Given Documented by: Levetiracetam (Keppra) 750 mg PO BID [facility] Last Admin: 08/12/20 11:11 Dose: Not Given Documented by: Magnesium Hydroxide (Milk Of Magnesia) 30 ml PO Q4H PRN PRN Reason: Constipation Metoprolol Tartrate (Metoprolol) 100 mg PO BID [facility] Last Admin: 08/12/20 11:11 Dose: Not Given Documented by: Mirtazapine (Remeron) 15 mg PO QHS [facility] Last Admin: 08/12/20 00:20 Dose: 15 mg Documented by: Miscellaneous Medication (Nucynta) 75 mg PO ONCE [facility] Ondansetron HCl (Zofran) 4 mg IV Q8H PRN PRN Reason: Nausea And Vomiting Oxycodone/Acetaminophen (Percocet 5/325) 1 tab PO Q6H PRN PRN Reason: Pain, Moderate (4-6) Phenytoin (Dilantin) 300 mg PO QHS [facility] Last Admin: 08/12/20 00:21 Dose: 300 mg Documented by: Potassium Chloride (K-Dur) 20 meq PO QDAY [facility] Last Admin: 08/12/20 11:11 Dose: Not Given Documented by: Sodium Chloride (Sodium Chloride Flush Syringe 10 Ml) 10 ml IV PRN PRN PRN Reason: LINE FLUSH Review of Systems All systems: negative (what reported in HPI, with mild slurred speech due to cerebral palsy) Physical Examination - Vital Signs Vital Signs: Vital Signs Pulse Ox 95 08/11/20 09:16 - Physical Exam Narrative exam: Comprehensive Neurological Examinations: Mental status: alert. knows that he is in the hospital but does not know today's date. Speech-mild dysarthric Cranial nerves: II Optic: Visual yzweub-vfcawpkno-ljxtxr. Visual field-normal. III Oculomotor: Bilateral-normal IV Trochlear: Bilateral-normal V Trigeminal: Bilateral-normal. Abducens: Bilateral-normal VII Facial: Bilateral-normal VIII Acoustic: jmsltxgyq-vgqvjjx-gadils( tested by finger rub) IX Glossopharyngeal/ X Vzkyd-mtfcc-guzjol XI Accessory-normal shoulder shrug XII Pxpybicspyb-gexbtizxn-hoxnlx Eye movements: Djbq-ucbgqplyr-hqolgu Nystagmus: Bilateral-none Motor: Bulk and contour: Normal Tone: Normal Strength: Head and neck-normal Upper extremities: Right-no drift Left-1/5 Lower extremities: Right-no drift Left-1/5 DTRs: Deferred Sensory: Light touch/pinprick-decreased sensation on left side - Constitutional General appearance: comfortable - EENT EENT: Present: ATNC, PERRL, hearing intact, vision intact - Respiratory Respiratory: Present: chest non-tender - Cardiovascular Cardiovascular: Present: regular rate Extremities: Present: no peripheral edema bilatateraly - Gastrointestinal Gastrointestinal: Present: soft, non-tender - Level of Consciousness 1a. Level of Consciousness: alert/keenly responsive - LOC Questions 1b. LOC Questions: answers both correctly - LOC Command 1c. LOC Commands: performs tasks correctly - Best Gaze 2. Best Gaze: normal - Visual 3. Visual: no visual loss - Facial Palsy 4. Facial Palsy: minor paralysis - Motor Arm 5a. Motor Arm Left: no gravity effort 5b. Motor Arm Right: no drift - Motor Leg 6a. Motor Leg Left: no gravity effort 6b. Motor Leg Right: no drift - Limb Ataxia 7. Limb Ataxia: absent - Sensory 8. Sensory: mild/moderate sensory loss - Best Language 9. Best Language: no aphasia - Dysarthria 10. Dysarthria: mild/moderate dysarthria - Extinction and Inattention 11. Extinction/Inattention: visual/tactile inattention - Scoring Total Score: 10 Stroke Severity: Moderate Stroke Results - Laboratory Findings CBC and BMP: 08/11/20 09:18 08/11/20 09:18 Abnormal Lab Findings: Abnormal Labs 08/11/20 08/11/20 08/12/20 09:18 09:18 04:50 WBC 3.0 L Hgb 15.8 H MCHC 35 H Monocytes % (Manual) 18.0 H Basophils % (Manual) 2.0 H Seg Neutrophils # Man 1.4 L Lymphocytes # (Manual) 0.9 L Sodium 136 L Glucose 103 H HDL Cholesterol 31 L - Diagnostic Findings Additional findings: CT scan of the brain did show a low density area in the right subcortical region. CT angios of head and neck are unremarkable. Assessment and Plan - Patient Problems (1) Acute CVA (cerebrovascular accident) Current Visit: Yes Status: Acute Plan to address problem: Plan: 1) Patient needs MRI of brain with and without WIN to delineate new versus old stroke in the right subcortical region visible on CT scan of the brain before discharge home. 2) Agree with the dual antiplatelet drug( aspirin plus Plavix) along with statin as prescribed. 3) Aggressive physical therapy, occupational therapy, speech therapy in the hospital and upon discharge home. 4) Please provide him secondary stroke prevention education and compliance of taking his medications. 5) Patient needs follow-up visit with the local neurologist in 2 weeks upon discharge. 6) Continue anti-seizure medicine as prescribed at this moment. I discussed at length with the patient regarding his condition and possible treatment options. I have answered multiple questions posed by the patient to his best satisfactions. Patient agreed with the plan. Thank you very much for allowing us in the care of your patient. Please call us if you have any questions. Molly Bedoya MD Tele-neurologist [phone]
[2020-08-13] MEDS: BUDESONIDE 0.5 MG/2 ML NEBU IH SCH ×2 (08:13→21:31)
[2020-08-13] MEDS: ARFORMOTEROL 15 MCG/2 ML NEBU IH SCH ×2 (08:13→21:31)
[2020-08-13] MEDS: DOLUTEGRAVIR 50 MG TAB PO SCH (10:34)
[2020-08-13] MEDS: METOPROLOL TARTRATE 100 MG TAB PO SCH ×2 (10:34→22:24)
[2020-08-13] MEDS: ASPIRIN 325 MG TAB PO SCH (10:34)
[2020-08-13] MEDS: FUROSEMIDE 40 MG TAB PO SCH (10:34)
[2020-08-13] MEDS: POTASSIUM CHLORIDE ER 20 MEQ TAB PO SCH (10:36)
[2020-08-13] MEDS: ABACAVIR 300 MG TAB PO SCH (10:36)
[2020-08-13] MEDS: CLOPIDOGREL 75 MG TAB PO SCH (10:36)
[2020-08-13] MEDS: levETIRAcetam 500 MG TAB PO SCH ×2 (10:36→22:23)
[2020-08-13] MEDS: DICYCLOMINE 10 MG CAP PO SCH ×4 (10:36→22:24)
[2020-08-13] MEDS: busPIRone 10 MG TAB PO SCH ×2 (10:36→22:23)
[2020-08-13] MEDS: ARIPiprazole 15 MG TAB PO SCH (10:37)
[2020-08-13] MEDS ORDERED: DEXAMETHASONE 4 MG TAB PO SCH (15:00)
--- NOTE | 2020-08-13 15:22 | Magnetic Resonance Report ---
MR brain wo con INDICATION / CLINICAL INFORMATION: 55 years Male; Left sided weakness. TECHNIQUE: Multiplanar, multisequence MR images of the brain were obtained. 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 Small arachnoid cyst suggested in the middle cranial fossa, anteriorly on the right, which should be of no clinical significance. Small lacunar infarct seen along the lateral aspect of the head of the caudate on the right is chroni c in age. Otherwise, no acute hemorrhage, mass effect, midline shift, hydrocephalus, or acute, large territori al infarct. No chronic infarct or atrophy. No significant white matter abnormality. CRANIOCERVICAL JUNCTION: No significant abnormality. VASCULAR FLOW-VOIDS: No significant abnormality. ORBITS: No significant abnormality of visualized orbits. SINUSES / MASTOIDS: No significant abnormality in the visualized paranasal sinuses or mastoid air miracle ls. ADDITIONAL FINDINGS: None. IMPRESSION: 1. No focal mass, hemorrhage, hydrocephalus, or acute ischemia. Signer Name: Abdoulaye Tse MD, III Signed: 08/13/2020 3:17 PM Workstation Name: [email or web address]
--- NOTE | 2020-08-13 16:34 | Progress Note ---
Assessment and Plan Assessment and plan: 55 YO Male with HIV, CVA with LHP on DAPT, CP, SLE, CAD S/P CABG, [place], DM, PTSD, Depression, HTN, HLD, Asthma, Chronic Pain Syndrome, COPD, Seizure Disorder, Nicotine Dependence presents to ED for evaluation. Patient states that he was in his usual state of health at bedtime which was around 2100 hrs. patient reports awakening from sleep today around 0830 hrs. with left arm weakness and difficulty speaking. EMS was notified and upon arrival the patient was found to be in distress with a neurologic deficit. A code stroke was called and the patient was transported to [facility] for further care and evaluation of the aforementioned symptoms. Patient seen and evaluated in the emergency department. Lab and imaging studies reviewed. Patient found to have symptoms consistent with CVA with concomitant diagnosis of HIV, coronary artery disease, and seizure disorder. Tele-neurology consulted. Patient placed in observation status and admitted to medical floor for further care and evaluation. Patient d enies fever, chills, chest pain, palpitation, productive cough, skin rash, recent ill contacts, or known exposure to COVID-19. Prior admission on 07/05/2020 reviewed. All medication listed at time of admission has been reconciled. CT head was unremarkable (1) CVA (cerebral vascular accident) Current Visit: No Status: Acute Qualifiers: Precerebral and cerebral artery: middle cerebral artery Laterality of affected vessel: right Plan to address problem: CVA protocol: CT head, neuro check, seizure precautions, physical therapy consulted, Occupational Therapy consulted, speech therapy consulted Will obtain MRI of the brain (2) Chronic pain syndrome Current Visit: No Status: Acute Plan to address problem: Continue medical management, supportive care. Pain assessment as per nursing routine. (3) Diabetes Current Visit: No Status: Acute Plan to address problem: Sliding-scale insulin therapy, Accu-Chek, hypoglycemia protocol, consistent carbohydrate diet. (4) Left hemiparesis Current Visit: No Status: Acute Plan to address problem: Physical therapy consulted, supportive care (5) SLE (systemic lupus erythematosus) Current Visit: No Status: Acute Qualifiers: Systemic lupus erythematosus organ involvement: unspecified Plan to address problem: Supportive care, continue medical management, (6) HIV (human immunodeficiency virus infection) Current Visit: No Status: Chronic Qualifiers: HIV symptom status: asymptomatic Qualified Code(s): Z21 - Asymptomatic human immunodeficiency virus [HIV] infection status Plan to address problem: Continue medical management. Outpatient infectious disease service follow-up. (7) Hypertension Current Visit: No Status: Chronic Qualifiers: Hypertension type: essential hypertension Qualified Code(s): I10 - Es sential (primary) hypertension Plan to address problem: Monitor blood pressure every shift, continue medical management. (8) Seizure disorder Current Visit: Yes Status: Acute Plan to address problem: Continue Keppra, supportive care, seizure precautions. (9) Nicotine dependence Current Visit: No Status: Chronic Qualifiers: Nicotine product type: cigarettes Plan to address problem: Smoking cessation counseling, supportive care, behavior change counseling, +15 minutes. (10) DVT prophylaxis Current Visit: Yes Status: Acute Plan to address problem: SCD to bilateral lower extremities while in bed, patient is ambulatory History Interval history: Patient seen and examined reports left-sided pain. Review of records shows that he was here not too long ago with the same complaints although patient denies that. Hospitalist Physical - Physical exam Narrative exam: VITAL SIGNS: Reviewed. GENERAL: The patient appears normally developed, Vital signs as documented. HEAD: No signs of head trauma. EYES: Pupils are equal. Extraocular motions intact. EARS: Hearing grossly intact. MOUTH: Oropharynx is normal. NECK: No adenopathy, no JVD. CHEST: Chest with clear breath sounds bilaterally. No wheezes, rales, or rhonchi. CARDIAC: Regular rate and rhythm. S1 and S2, without murmurs, gallops, or rubs. VASCULAR: No Edema. Peripheral pulses normal and equal in all extremities. ABDOMEN: Soft, non tender and non distended. No rebound or guarding, and no masses palpated. Bowel Sounds normal. MUSCULOSKELETAL: Good range of motion of all major joints. Extremities without clubbing, cyanosis or edema. NEUROLOGIC EXAM: Alert and oriented x 3, left-sided hemiparesis motor strength 3/5. Speech normal. Follows commands. PSYCHIATRIC: Mood normal. SKIN: detail exam as documented in skin assessment - Constitutional Vitals: Temp Pulse Resp BP Pulse Ox 98.3 F 65 20 113/64 97 08/13/20 15:50 08/13/20 15:50 08/13/20 15:50 08/13/20 15:50 08/13/20 15:50 General appearance: Present: mild distress HEART Score - HEART Score Troponin: Troponin T < 0.010 ng/mL (0.00-0.029) 08/11/20 09:18 Results - Labs CBC & Chem 7: 08/11/20 09:18 08/11/20 09:18 Labs: Laboratory Last Values WBC 3.0 K/mm3 (4.5-11.0) L 08/11/20 09:18 RBC 5.00 M/mm3 (3.65-5.03) 08/11/20 09:18 Hgb 15.8 gm/dl (11.8-15.2) H 08/11/20 09:18 Hct 45.3 % (35.5-45.6) 08/11/20 09:18 MCV 91 fl (84-94) 08/11/20 09:18 MCH 32 pg (28-32) 08/11/20 09:18 MCHC 35 % (32-34) H 08/11/20 09:18 RDW 13.4 % (13.2-15.2) 08/11/20 09:18 Plt Count 149 K/mm3 (140-440) 08/11/20 09:18 Add Manual Diff Complete 08/11/20 09:18 Total Counted 100 08/11/20 09:18 Seg Neutrophils % Stock Sorter 08/11/20 09:18 Seg Neuts % (Manual) 45.0 % (40.0-70.0) 08/11/20 09:18 Band Neutrophils % 1.0 % 08/11/20 09:18 Lymphocytes % (Manual) 31.0 % (13.4-35.0) 08/11/20 09:18 Reactive Lymphs % (Man) 1.0 % 08/11/20 09:18 Monocytes % (Manual) 18.0 % (0.0-7.3) H 08/11/20 09:18 Eosinophils % (Manual) 0 % (0.0-4.3) 08/11/20 09:18 Basophils % (Manual) 2.0 % (0.0-1.8) H 08/11/20 09:18 Metamyelocytes % 2.0 % 08/11/20 09:18 Myelocytes % 0 % 08/11/20 09:18 Promyelocytes % 0 % 08/11/20 09:18 Blast Cells % 0 % 08/11/20 09:18 Nucleated RBC % Not Reportable 08/11/20 09:18 Seg Neutrophils # Man 1.4 K/mm3 (1.8-7.7) L 08/11/20 09:18 Band Neutrophils # 0.0 K/mm3 08/11/20 09:18 Lymphocytes # (Manual) 0.9 K/mm3 (1.2-5.4) L 08/11/20 09:18 Abs React Lymphs (Man) 0.0 K/mm3 08/11/20 09:18 Monocytes # (Manual) 0.5 K/mm3 (0.0-0.8) 08/11/20 09:18 Eosinophils # (Manual) 0.0 K/mm3 (0.0-0.4) 08/11/20 09:18 Basophils # (Manual) 0.1 K/mm3 (0.0-0.1) 08/11/20 09:18 Metamyelocytes # 0.1 K/mm3 08/11/20 09:18 Myelocytes # 0.0 K/mm3 08/11/20 09:18 Promyelocytes # 0.0 K/mm3 08/11/20 09:18 Blast Cells # 0.0 K/mm3 08/11/20 09:18 WBC Morphology Not Reportable 08/11/20 09:18 Hypersegmented Neuts Not Reportable 08/11/20 09:18 Hyposegmented Neuts Not Reportable 08/11/20 09:18 Hypogranular Neuts Not Reportable 08/11/20 09:18 Smudge Cells Not Reportable 08/11/20 09:18 Toxic Granulation Not Reportable 08/11/20 09:18 Toxic Vacuolation Not Reportable 08/11/20 09:18 Dohle Bodies Not Reportable 08/11/20 09:18 Pelger-Huet Anomaly Not Reportable 08/11/20 09:18 Michael Rods Not Reportable 08/11/20 09:18 Platelet Estimate Consistent w auto 08/11/20 09:18 Clumped Platelets Not Reportable 08/11/20 09:18 Plt Clumps, EDTA Not Reportable 08/11/20 09:18 Large Platelets Not Reportable 08/11/20 09:18 Giant Platelets Not Reportable 08/11/20 09:18 Platelet Satelliting Not Reportable 08/11/20 09:18 Plt Morphology Comment Not Reportable 08/11/20 09:18 RBC Morphology Normal 08/11/20 09:18 Dimorphic RBCs Not Reportable 08/11/20 09:18 Polychromasia Not Reportable 08/11/20 09:18 Hypochromasia Not Reportable 08/11/20 09:18 Poikilocytosis Not Reportable 08/11/20 09:18 Anisocytosis Not Reportable 08/11/20 09:18 Microcytosis Not Reportable 08/11/20 09:18 Macrocytosis Not Reportable 08/11/20 09:18 Spherocytes Not Reportable 08/11/20 09:18 Pappenheimer Bodies Not Reportable 08/11/20 09:18 Sickle Cells Not Reportable 08/11/20 09:18 Target Cells Not Reportable 08/11/20 09:18 Tear Drop Cells Not Reportable 08/11/20 09:18 Ovalocytes Not Reportable 08/11/20 09:18 Helmet Cells Not Reportable 08/11/20 09:18 [place] Bodies Not Reportable 08/11/20 09:18 [place] Rings Not Reportable 08/11/20 09:18 Doug Cells Not Reportable 08/11/20 09:18 Bite Cells Not Reportable 08/11/20 09:18 Crenated Cell Not Reportable 08/11/20 09:18 Elliptocytes Not Reportable 08/11/20 09:18 Acanthocytes (Spur) Not Reportable 08/11/20 09:18 Rouleaux Not Reportable 08/11/20 09:18 Hemoglobin C Crystals Not Reportable 08/11/20 09:18 Schistocytes Not Reportable 08/11/20 09:18 Malaria parasites Not Reportable 08/11/20 09:18 Kirill Bodies Not Reportable 08/11/20 09:18 Hem Pathologist Commnt No 08/11/20 09:18 PT 13.5 Sec. (12.2-14.9) 08/11/20 09:18 INR 1.01 (0.87-1.13) 08/11/20 09:18 APTT 31.1 Sec. (24.2-36.6) 08/11/20 09:18 Thrombin Time 18.4 Sec. (15.1-19.6) 08/11/20 09:18 Sodium 136 mmol/L (137-145) L 08/11/20 09:18 Potassium 4.1 mmol/L (3.6-5.0) 08/11/20 09:18 Chloride 102.4 mmol/L (98-107) 08/11/20 09:18 Carbon Dioxide 26 mmol/L (22-30) 08/11/20 09:18 Anion Gap 12 mmol/L 08/11/20 09:18 BUN 11 mg/dL (9-20) 08/11/20 09:18 Creatinine 0.9 mg/dL (0.8-1.3) 08/11/20 09:18 Estimated GFR > 60 ml/min 08/11/20 09:18 BUN/Creatinine Ratio 12 % 08/11/20 09:18 Glucose 103 mg/dL (75-100) H 08/11/20 09:18 POC Glucose 92 mg/dL (70-105) 08/13/20 16:09 Calcium 8.7 mg/dL (8.4-10.2) 08/11/20 09:18 Troponin T < 0.010 ng/mL (0.00-0.029) 08/11/20 09:18 Triglycerides 102 mg/dL (2-149) 08/12/20 04:50 Cholesterol 148 mg/dL (50-199) 08/12/20 04:50 LDL Cholesterol Direct 109 mg/dL (50-130) 08/12/20 04:50 HDL Cholesterol 31 mg/dL (40-59) L 08/12/20 04:50 Cholesterol/HDL Ratio 4.77 % 08/12/20 04:50 Coronavirus (PCR) Positive (Negative) A 08/13/20 Unknown Iyer/IV: Voiding Method Toilet IV Catheter Type [Left Forearm INT / Saline Lock ] Active Medications - Current Medications Current Medications: Generic Name Dose Route Start Last Admin Trade Name Freq PRN Reason Stop Dose Admin Abacavir Sulfate 600 mg 08/12/20 10:00 08/13/20 10:36 Ziagen PO 600 mg DAILY [facility] Administration Acetaminophen 650 mg 08/11/20 11:31 Tylenol PO Q4H PRN Pain, Mild (1-3) Arformoterol Tartrate 15 mcg 08/11/20 20:00 08/13/20 08:13 Brovana Nebu IH 15 mcg Q12HRT [facility] Administration Aripiprazole 15 mg 11/12/20 10:00 08/13/20 10:37 Abilify PO 15 mg DAILY [facility] Administration Aspirin 325 mg 08/12/20 10:00 08/13/20 10:34 Aspirin PO 325 mg QDAY [facility] Administration Atorvastatin Calcium 40 mg 08/11/20 22:00 08/12/20 21:07 Lipitor PO 40 mg QHS [facility] Administration Bisacodyl 10 mg 08/11/20 11:29 Dulcolax NC QDAY PRN Constipation Budesonide 0.5 mg 08/11/20 20:00 08/13/20 08:13 Pulmicort IH 0.5 mg Q12HRT [facility] Administration Buspirone HCl 10 mg 08/12/20 10:00 08/13/20 10:36 Buspar PO 10 mg BID [facility] Administration Clopidogrel Bisulfate 75 mg 08/12/20 10:00 08/13/20 10:36 Plavix PO 75 mg DAILY [facility] Administration Dexamethasone 6 mg 08/13/20 15:00 Decadron PO 08/22/20 10:01 DAILY [facility] Dicyclomine HCl 10 mg 08/11/20 14:00 08/13/20 14:58 Bentyl PO Not Given QID [facility] Docusate Sodium 100 mg 08/11/20 11:31 Colace PO BID PRN Constipation Doxepin HCl 100 mg 08/11/20 22:00 08/12/20 21:09 Sinequan PO 100 mg QHS [facility] Administration Furosemide 40 mg 08/12/20 10:00 08/13/20 10:34 Lasix PO 40 mg QDAY [facility] Administration Lamivudine 300 mg 08/12/20 10:00 08/13/20 10:38 Epivir PO 300 mg QDAY [facility] Administration Levetiracetam 750 mg 08/11/20 22:00 08/13/20 10:36 Keppra PO 750 mg BID [facility] Administration Magnesium Hydroxide 30 ml 08/11/20 11:29 Milk Of Magnesia PO Q4H PRN Constipation Metoprolol Tartrate 100 mg 08/11/20 22:00 08/13/20 10:34 Metoprolol PO 100 mg BID [facility] Administration Mirtazapine 15 mg 08/11/20 22:00 08/12/20 21:09 Remeron PO 15 mg QHS [facility] Administration Miscellaneous Medication 75 mg 08/12/20 09:30 Nucynta PO ONCE [facility] Ondansetron HCl 4 mg 08/11/20 11:29 Zofran IV Q8H PRN Nausea And Vomiting Oxycodone/Acetaminophen 1 tab 08/11/20 11:31 08/12/20 20:27 Percocet 5/325 PO 1 tab Q6H PRN Administration Pain, Moderate (4-6) Phenytoin 300 mg 08/11/20 22:00 08/12/20 21:06 Dilantin PO 300 mg QHS [facility] Administration Potassium Chloride 20 meq 08/12/20 10:00 08/13/20 10:36 K-Dur PO 20 meq QDAY [facility] Administration Sodium Chloride 10 ml 08/11/20 11:29 Sodium Chloride Flush Syringe 10 Ml IV PRN PRN LINE FLUSH
[2020-08-13] MEDS: PHENYTOIN 100 MG CAPSULE.ER PO SCH (22:22)
[2020-08-13] MEDS: MIRTAZAPINE 15 MG TAB PO SCH (22:22)
[2020-08-13] MEDS: DOXEPIN 100 MG CAP PO SCH (22:23)
[2020-08-13 23:40] VITALS: BP 116/80
== END 2020-08-14 01:00 | disposition home or self-care (01) ==
LOC: ED 08:34 → 3A 11:29 → 4A 23:02
PROVIDERS: ADMIT Internal Medicine; ATTEND Internal Medicine
DX: U07.1 COVID-19 (principal); I63.9 Cerebral infarction, unspecified; G89.4 Chronic pain syndrome; G81.94 Hemiplegia, unspecified affecting left nondominant side; M32.9 Systemic lupus erythematosus, unspecified; E11.9 Type 2 diabetes mellitus without complications; I10 Essential (primary) hypertension; I25.10 Atherosclerotic heart disease of native coronary artery without angina pectoris; G40.909 Epilepsy, unspecified, not intractable, without status epilepticus; E78.5 Hyperlipidemia, unspecified; J44.9 Chronic obstructive pulmonary disease, unspecified; F17.210 Nicotine dependence, cigarettes, uncomplicated; R29.708 NIHSS score 8; F43.10 Post-traumatic stress disorder, unspecified; F32.9 Major depressive disorder, single episode, unspecified; Z21 Asymptomatic human immunodeficiency virus [HIV] infection status; Z95.1 Presence of aortocoronary bypass graft; Z79.4 Long term (current) use of insulin; Z79.82 Long term (current) use of aspirin
CPT/HCPCS: 36415; 70450; 70496; 70498; 70551; 80048; 80061; 82962; 84484; 85025; 85610; 85670; 85730; 92610; 93005; 94640; 97162; 99291; 99406; A9270; G0378; J8540; Q9967; U0003; 85007; 94644

== ENCOUNTER 2020-09-25 15:06 | Emergency (ER) | payer MEDICAID, MEDICARE ==
[2020-09-25 17:43] VITALS: BP 132/81
[2020-09-25 19:10] LABS: Alanine Aminotransferase 48 units/L (7-56); Albumin 3.7 g/dL (3.9-5); BUN/Creatinine Ratio 11; Blood Urea Nitrogen 10 mg/dL (9-20); Calcium 8.9 mg/dL (8.4-10.2); Hemolysis Index 5
[2020-09-25 19:31] LABS: Basophils % (Auto) 0.4 % (0.0-1.8); Eosinophils # (Auto) 0.1 K/mm3 (0.0-0.4); Eosinophils % (Auto) 1.8 % (0.0-4.3); Hematocrit 43.4 % (35.5-45.6); Hemoglobin 14.6 gm/dl (11.8-15.2); Lymphocytes # (Auto) 2.2 K/mm3 (1.2-5.4); Lymphocytes % (Auto) 29.4 % (13.4-35.0); Mean Corpuscular HGB Conc 34 % (32-34); Mean Corpuscular Volume 93 fl (84-94); Monocytes # (Auto) 0.7 K/mm3 (0.0-0.8); Monocytes % (Auto) 9.5 % (0.0-7.3); Platelet Count 342 K/mm3 (140-440); Red Blood Count 4.66 M/mm3 (3.65-5.03); Red Cell Distribution Width 13.3 % (13.2-15.2)
== END 2020-09-26 01:20 | disposition left against medical advice (07) ==
LOC: ED 15:06
DX: R19.7 Diarrhea, unspecified (principal); R11.2 Nausea with vomiting, unspecified; Z53.21 Procedure and treatment not carried out due to patient leaving prior to being seen by health care provider
CPT/HCPCS: 36415; 80053; 83690; 85025

== ENCOUNTER 2020-09-27 13:36 | Emergency (ER) | payer MEDICAID ==
--- NOTE | 2020-09-27 14:19 | Emergency Department Report ---
ED Psych HPI - General Chief Complaint: Psych Stated Complaint: BEHAVIORAL Time Seen by Provider: 09/27/20 14:00 Source: patient, RN/MD, EMS Mode of arrival: Ambulatory - History of Present Illness Initial Comments: Patient is a 55-year-old male with past medical history of schizophrenia and bipolar who presents the emergency department with complaint of auditory hallucinations. Patient reports that he has been out of his medications and has been feeling like this for a while. Patient states that he is hearing voices that are telling him to kill himself and to go and be with his mother who is . Patient also states that he has a history of lupus and reports pain all over. MD Complaint: suicidal ideation Associated Psychiatric Symptoms: auditory hallucinations Treatments Prior to Arrival: none If Self Harm: admits thoughts of - Related Data Home Medications Medication Instructions Recorded Confirmed Last Taken ARIPiprazole [Abilify TAB] 15 mg PO DAILY 06/05/19 09/27/20 07/03/20 Albuterol Mdi (or & Nicu Only) 2 puff IH Q4H PRN 06/05/19 08/11/20 07/03/20 [ProAir HFA Inhaler] Doxepin [SINEquan] 100 mg PO QHS 06/05/19 09/27/20 07/03/20 Fluticasone/Salmeterol(Nf) [Advair 2 puff IH BID 06/05/19 09/27/20 07/03/20 HFA 230-21 mcg] Furosemide [Lasix TAB] 40 mg PO QDAY 06/05/19 09/27/20 07/03/20 40 mg Ipratropium/Albuterol Sulfate 1 spray IH QID 06/05/19 09/27/20 07/03/20 [Combivent Respimat] Mirtazapine [Remeron 15mg TAB] 15 mg PO QHS 06/05/19 09/27/20 07/03/20 16:00 15 mg Potassium Chloride [K-Dur] 20 meq PO QDAY 06/05/19 09/27/20 07/03/20 16:00 20 meq busPIRone [Buspar] 10 mg PO BID 06/05/19 09/27/20 07/03/20 10 Nucynta 75 mg PO ONCE 04/13/20 09/27/20 07/03/20 16:00 75 mg Triumeq 600-50-300 mg Tablet 600 mg PO DAILY 04/14/20 09/27/20 07/03/20 600-50-300 Previous Rx's Medication Instructions Recorded Last Taken Type Dicyclomine [Bentyl] 10 mg PO QID #30 capsule 04/14/20 07/03/20 Rx Docusate Sodium [Colace CAP] 100 mg PO BID PRN #30 capsule 04/14/20 07/03/20 Rx Metoprolol [Lopressor TAB] 100 mg PO BID #60 04/14/20 07/03/20 Rx 100 mg Phenytoin [Dilantin] 300 mg PO QHS #90 04/14/20 07/03/20 Rx 300 levETIRAcetam [Keppra TAB] 750 mg PO BID #90 tablet 04/14/20 07/03/20 Rx 750 Insulin NPH/Regular [NovoLIN 70/30] 20 unit SUB-Q QAM&QHS units 07/07/20 Unknown Rx Oxycodone HCl/Acetaminophen 1 each PO Q6HR PRN #10 07/07/20 Unknown Rx [Percocet 10/325 mg] Abacavir [Ziagen TAB] 600 mg PO DAILY tablet 07/12/20 Unknown Rx Acetaminophen [Acetaminophen TAB] 650 mg PO Q4H PRN tablet 07/12/20 Unknown Rx Arformoterol Nebu [Brovana Nebu] 15 mcg IH Q12HRT #1 ml 07/12/20 Unknown Rx Budesonide [Pulmicort Respules] 0.5 mg IH Q12HRT nebu 07/12/20 Unknown Rx Clopidogrel [Plavix] 75 mg PO DAILY #30 tablet 07/12/20 Unknown Rx Dolutegravir [Tivicay] 50 mg PO DAILY tablet 07/12/20 Unknown Rx Aspirin 325 mg PO QDAY #30 tablet 08/12/20 Unknown Rx AtorvaSTATin [Lipitor] 80 mg PO QHS #30 tablet 08/12/20 Unknown Rx Dexamethasone [Decadron] 6 mg PO DAILY #10 tablet 08/13/20 Unknown Rx Allergies Allergy/AdvReac Type Severity Reaction Status Date / Time metoclopramide [From Reglan] Allergy Anaphylaxis Verified 09/27/20 13:41 prochlorperazine Allergy Anaphylaxis Verified 09/27/20 13:41 [From Compazine] promethazine [From Phenergan] Allergy Anaphylaxis Verified 09/27/20 13:41 rice Allergy Hives Verified 09/27/20 13:41 ED Review of Systems ROS: Stated complaint: BEHAVIORAL Other details as noted in HPI Constitutional: denies: fever Eyes: denies: eye discharge ENT: denies: dental pain Respiratory: denies: shortness of breath Cardiovascular: denies: chest pain Endocrine: no symptoms reported Gastrointestinal: denies: abdominal pain, nausea, vomiting Genitourinary: denies: dysuria Musculoskeletal: denies: joint swelling Skin: denies: rash Neurological: denies: numbness Psychiatric: auditory hallucinations, suicidal thoughts Hematological/Lymphatic: denies: easy bleeding, easy bruising ED Past Medical Hx - Past Medical History Previous Medical History?: Yes Hx Hypertension: Yes Hx CVA: Yes (left sided weakness) Hx Heart Attack/AMI: Yes Hx Congestive Heart Failure: Yes Hx Diabetes: Yes Hx Seizures: Yes Hx Psychiatric Treatment: Yes (PTSD,depression) Hx Asthma: Yes Hx COPD: Yes Hx HIV: Yes Additional medical history: Cerebral palsy - Surgical History Past Surgical History?: Yes Additional Surgical History: CABG - Social History Smoking Status: Current Every Day Smoker Substance Use Type: None - Medications Home Medications: Home Medications Medication Instructions Recorded Confirmed Last Taken Type ARIPiprazole [Abilify TAB] 15 mg PO DAILY 06/05/19 09/27/20 07/03/20 History Albuterol Mdi (or & Nicu Only) 2 puff IH Q4H PRN 06/05/19 08/11/20 07/03/20 History [ProAir HFA Inhaler] Doxepin [SINEquan] 100 mg PO QHS 06/05/19 09/27/20 07/03/20 History Fluticasone/Salmeterol(Nf) [Advair 2 puff IH BID 06/05/19 09/27/20 07/03/20 History HFA 230-21 mcg] Furosemide [Lasix TAB] 40 mg PO QDAY 06/05/19 09/27/20 07/03/20 History 40 mg Ipratropium/Albuterol Sulfate 1 spray IH QID 06/05/19 09/27/20 07/03/20 History [Combivent Respimat] Mirtazapine [Remeron 15mg TAB] 15 mg PO QHS 06/05/19 09/27/20 07/03/20 16:00 History 15 mg Potassium Chloride [K-Dur] 20 meq PO QDAY 06/05/19 09/27/20 07/03/20 16:00 History 20 meq busPIRone [Buspar] 10 mg PO BID 06/05/19 09/27/20 07/03/20 History 10 Nucynta 75 mg PO ONCE 04/13/20 09/27/20 07/03/20 16:00 History 75 mg Dicyclomine [Bentyl] 10 mg PO QID #30 capsule 04/14/20 09/27/20 07/03/20 Rx Docusate Sodium [Colace CAP] 100 mg PO BID PRN #30 capsule 04/14/20 09/27/20 07/03/20 Rx Metoprolol [Lopressor TAB] 100 mg PO BID #60 04/14/20 09/27/20 07/03/20 Rx 100 mg Phenytoin [Dilantin] 300 mg PO QHS #90 04/14/20 09/27/20 07/03/20 Rx 300 Triumeq 600-50-300 mg Tablet 600 mg PO DAILY 04/14/20 09/27/20 07/03/20 History 600-50-300 levETIRAcetam [Keppra TAB] 750 mg PO BID #90 tablet 04/14/20 09/27/20 07/03/20 Rx 750 Insulin NPH/Regular [NovoLIN 70/30] 20 unit SUB-Q QAM&QHS units 07/07/20 09/27/20 Unknown Rx Oxycodone HCl/Acetaminophen 1 each PO Q6HR PRN #10 07/07/20 09/27/20 Unknown Rx [Percocet 10/325 mg] Abacavir [Ziagen TAB] 600 mg PO DAILY tablet 07/12/20 09/27/20 Unknown Rx Acetaminophen [Acetaminophen TAB] 650 mg PO Q4H PRN tablet 07/12/20 09/27/20 U nknown Rx Arformoterol Nebu [Brovana Nebu] 15 mcg IH Q12HRT #1 ml 07/12/20 09/27/20 Unknown Rx Budesonide [Pulmicort Respules] 0.5 mg IH Q12HRT nebu 07/12/20 09/27/20 Unknown Rx Clopidogrel [Plavix] 75 mg PO DAILY #30 tablet 07/12/20 09/27/20 Unknown Rx Dolutegravir [Tivicay] 50 mg PO DAILY tablet 07/12/20 09/27/20 Unknown Rx Aspirin 325 mg PO QDAY #30 tablet 08/12/20 09/27/20 Unknown Rx AtorvaSTATin [Lipitor] 80 mg PO QHS #30 tablet 08/12/20 09/27/20 Unknown Rx Dexamethasone [Decadron] 6 mg PO DAILY #10 tablet 08/13/20 09/27/20 Unknown Rx ED Physical Exam - General Limitations: Other General appearance: alert - Head Head exam: Present: atraumatic, normal inspection - Eye Eye exam: Present: normal appearance Pupils: Present: normal accommodation - ENT ENT exam: Present: normal exam - Neck Neck exam: Present: normal inspection - Respiratory Respiratory exam: Present: normal lung sounds bilaterally. Absent: respiratory distress - Cardiovascular Cardiovascular Exam: Present: regular rate, normal rhythm, normal heart sounds - GI/Abdominal GI/Abdominal exam: Present: soft, normal bowel sounds. Absent: distended, tenderness, guarding, rebound - Rectal Rectal exam: Present: deferred - Extremities Exam Extremities exam: Present: normal inspection - Back Exam Back exam: Present: normal inspection - Neurological Exam Neurological exam: Present: alert, oriented X3 - Psychiatric Psychiatric exam: Present: depressed, suicidal ideation - Skin Skin exam: Present: warm, dry ED Course Vital Signs 09/27/20 09/27/20 09/28/20 14:07 20:06 01:52 Temperature 98.3 F 98.2 F 98.3 F Pulse Rate 99 H 59 L 100 H Respiratory 18 16 18 Rate Blood Pressure 127/88 117/66 97/61 [Left] O2 Sat by Pulse 97 95 96 Oximetry - Reevaluation(s) Reevaluation #1: 09/27/20 14:25 Patient is placed on a 1013 due to thoughts of self-harm, auditory hallucinatio ns. Reevaluation #2: 09/27/20 15:19 Patient is medically cleared at this time. He remains on a 1013. ED Medical Decision Making - Lab Data Result diagrams: 09/27/20 14:22 09/27/20 14:22 - Medical Decision Making Patient is a 55-year-old male with history of schizophrenia and bipolar currently on medications who presents to the emergency department with complaint of auditory hallucinations, suicidal ideations. He states the voices are telling him to kill himself and to go and be with his mother who is . Plan for psychiatric evaluation will obtain basic labs in order to medically clear the patient for likely psychiatric hospitalization Critical care attestation.: If time is entered above; I have spent that time in minutes in the direct care of this critically ill patient, excluding procedure time. ED Disposition Clinical Impression: Auditory hallucinations, Suicidal ideation Disposition: [id number] PSY HOSP/PSY UNIT Is pt being admited?: No Does the pt Need Aspirin: No Condition: Stable Referrals: PRIMARY CARE [Primary Care Provider] - 3-5 Days
[2020-09-27 14:35] LABS: Bilirubin,Urine NEG (Negative); Blood,Urine NEG (Negative); Color,Urine Yellow (Yellow); Mucus,Urine 3+ /HPF
[2020-09-27 14:41] LABS: Basophils % (Auto) 0.5 % (0.0-1.8); Eosinophils % (Auto) 0.4 % (0.0-4.3); Hematocrit 42.1 % (35.5-45.6); Hemoglobin 14.7 gm/dl (11.8-15.2); Lymphocytes # (Auto) 1.5 K/mm3 (1.2-5.4); Lymphocytes % (Auto) 21.8 % (13.4-35.0); Mean Corpuscular HGB Conc 35 % (32-34); Mean Corpuscular Volume 89 fl (84-94); Monocytes # (Auto) 0.6 K/mm3 (0.0-0.8); Monocytes % (Auto) 9.3 % (0.0-7.3); Platelet Count 366 K/mm3 (140-440); Red Blood Count 4.72 M/mm3 (3.65-5.03); Red Cell Distribution Width 13.8 % (13.2-15.2)
[2020-09-27 14:42] LABS: Amphetamine Screen,Urine Negative; Benzodiazepines Screen,Urine Negative; Cannabinoid Screen,Urine Negative; Cocaine Screen,Urine Negative; Methadone Screen,Urine Negative; Opiate Screen,Urine Negative
[2020-09-27 14:57] LABS: BUN/Creatinine Ratio 19; Blood Urea Nitrogen 15 mg/dL (9-20); Calcium 9.2 mg/dL (8.4-10.2); Hemolysis Index 76
[2020-09-27] MEDS ORDERED: ACETAMINOPHEN 325 MG TAB PO PRN (15:28)
[2020-09-27] MEDS ORDERED: MAGNESIUM HYDROXIDE (MOM) ORAL LIQD UDC PO PRN (15:28)
[2020-09-27] MEDS ORDERED: ALUM-MAG HYDROXIDE-SIMETHICONE 200-200-20MG/5ML ORAL LIQD 30 ML PO PRN (15:28)
[2020-09-27] MEDS ORDERED: LORazepam 1 MG TAB PO ONE (15:30)
[2020-09-28 08:00] VITALS: BP 124/90
--- NOTE | 2020-09-28 10:33 | Consultation ---
History of Present Illness - Reason for Consult Consult date: 09/28/20 Reason for consult: MHE Requesting physician: ARTHUR DUGGAN - History of Present Psychiatric Illness Per ED Provider: Patient is a 55-year-old male with past medical history of schizophrenia and bipolar who presents the emergency department with complaint of auditory hallucinations. Patient reports that he has been out of his medications and has been feeling like this for a while. Patient states that he is hearing voices that are telling him to kill himself and to go and be with his mother who is . Patient also states that he has a history of lupus and reports pain all over. PSYCH HPI Patient is a 55-year-old , currently unemployed on SSI male with past psychiatric history of schizophrenia and bipolar, and past medical history of CABG, cerebral palsy, diabetes, HIV and CVA who presented to the ED with chief complaint of auditory hallucinations accompanied by suicidal ideation. Patient reported he started hearing voices about 3 weeks ago, and voices got worse in the last 3 days telling him to go see his mom, both of his parents are currently meaning the voices have been telling him to kill himself and sometimes voices sounds like his mom and this has made him to be more depressed because he misses his parents. Patient also reported to be on psych medication but has not been taking any medication for very long time due to noncompliance and no follow ups PAST PSYCHIATRIC HISTORY Diagnoses: Schizophrenia, bipolar Suicide attempts or Self-harm behavior: Yes, OD Prior psychiatric hospitalizations: yes Substance Abuse history: none reported Previous psychiatric medications tried: stopped taking meds Outpatient treatment: none PAST MEDICAL HISTORY: CABG, DM, cerebral palsy, HIV and CVA Family Psychiatric History: None reported or documented SOCIAL HISTORY Marital Status: Living Arrangements: rent Employment Status: [employer] Access to guns/weapons: none reported Education: College degree History of Abuse: All types Legal History: none reported REVIEW OF SYSTEMS Constitutional: Negative for weight loss ENT: Negative for stridor Respiratory: Negative for cough or hemoptysis All other systems reviewed and are negative MENTAL STATUS EXAMINATION General Appearance and Behavior: Age appropriate, good hygiene, wearing appropriate clothes,, good eye contact Cooperation: Participating/engaged, but Guarded Psychomotor Behavior: Psychomotor normal Mood: depressed Affect and affective range: flat Thought Process: illogical Thought Content: hallucination, helplessness Speech: Normal rate, volume and rythm Intellectual Functioning: Average Suicidal Ideation: SI Homicidal Ideation: Denies HI Impulse Control: Impaired Insight and Judgment: Limited insight and judgment Memory: Normal Attention: Normal Orientation: Alert, oriented Diagnoses: Assessment and Plan - Psychiatric problem (1) Schizoaffective disorder Current Visit: Yes Status: Acute Treatment Plan MEDICATIONS: Risks, benefits and alternatives of medications discussed with the patient, questions answered and consent obtained from patient. PSYCHOTHERAPY: Supportive psychotherapy provided MEDICAL: Per primary team DELIRIUM PRECAUTIONS: Please re-orient patient frequently, keep lights on during the day, and minimize benzodiazepines and opiates as these medications could worsen patient's confusion. CATERING ASSISTANT: DISPOSITION: Do Recommend acute inpatient psychiatric hospitalization at this time. Case discussed with Dr. Coelho who agrees with current disposition LEGAL STATUS: 1013 FOLLOW-UP: Will follow Thank you for the consult. Please contact with any questions and/or concerns. Medications and Allergies Allergies Allergy/AdvReac Type Severity Reaction Status Date / Time metoclopramide [From Reglan] Allergy Anaphylaxis Verified 09/27/20 13:41 prochlorperazine Allergy Anaphylaxis Verified 09/27/20 13:41 [From Compazine] promethazine [From Phenergan] Allergy Anaphylaxis Verified 09/27/20 13:41 rice Allergy Hives Verified 09/27/20 13:41 Home Medications Medication Instructions Recorded Confirmed Last Taken Type ARIPiprazole [Abilify TAB] 15 mg PO DAILY 06/05/19 09/27/20 07/03/20 History Albuterol Mdi (or & Nicu Only) 2 puff IH Q4H PRN 06/05/19 08/11/20 07/03/20 History [ProAir HFA Inhaler] Doxepin [SINEquan] 100 mg PO QHS 06/05/19 09/27/20 07/03/20 History Fluticasone/Salmeterol(Nf) [Advair 2 puff IH BID 06/05/19 09/27/20 07/03/20 History HFA 230-21 mcg] Furosemide [Lasix TAB] 40 mg PO QDAY 06/05/19 09/27/20 07/03/20 History 40 mg Ipratropium/Albuterol Sulfate 1 spray IH QID 06/05/19 09/27/20 07/03/20 History [Combivent Respimat] Mirtazapine [Remeron 15mg TAB] 15 mg PO QHS 06/05/19 09/27/20 07/03/20 16:00 History 15 mg Potassium Chloride [K-Dur] 20 meq PO QDAY 06/05/19 09/27/20 07/03/20 16:00 History 20 meq busPIRone [Buspar] 10 mg PO BID 06/05/19 09/27/20 07/03/20 History 10 Nucynta 75 mg PO ONCE 04/13/20 09/27/20 07/03/20 16:00 History 75 mg Dicyclomine [Bentyl] 10 mg PO QID #30 capsule 04/14/20 09/27/20 07/03/20 Rx Docusate Sodium [Colace CAP] 100 mg PO BID PRN #30 capsule 04/14/20 09/27/20 07/03/20 Rx Metoprolol [Lopressor TAB] 100 mg PO BID #60 04/14/20 09/27/20 07/03/20 Rx 100 mg Phenytoin [Dilantin] 300 mg PO QHS #90 04/14/20 09/27/20 07/03/20 Rx 300 Triumeq 600-50-300 mg Tablet 600 mg PO DAILY 04/14/20 09/27/20 07/03/20 History 600-50-300 levETIRAcetam [Keppra TAB] 750 mg PO BID #90 tablet 04/14/20 09/27/20 07/03/20 Rx 750 Insulin NPH/Regular [NovoLIN 70/30] 20 unit SUB-Q QAM&QHS units 07/07/20 09/27/20 Unknown Rx Oxycodone HCl/Acetaminophen 1 each PO Q6HR PRN #10 07/07/20 09/27/20 Unknown Rx [Percocet 10/325 mg] Abacavir [Ziagen TAB] 600 mg PO DAILY tablet 07/12/20 09/27/20 Unknown Rx Acetaminophen [Acetaminophen TAB] 650 mg PO Q4H PRN tablet 07/12/20 09/27/20 Unknown Rx Arformoterol Nebu [Brovana Nebu] 15 mcg IH Q12HRT #1 ml 07/12/20 09/27/20 Unknown Rx Budesonide [Pulmicort Respules] 0.5 mg IH Q12HRT nebu 07/12/20 09/27/20 Unknown Rx Clopidogrel [Plavix] 75 mg PO DAILY #30 tablet 07/12/20 09/27/20 Unknown Rx Dolutegravir [Tivicay] 50 mg PO DAILY tablet 07/12/20 09/27/20 Unknown Rx Aspirin 325 mg PO QDAY #30 tablet 08/12/20 09/27/20 Unknown Rx AtorvaSTATin [Lipitor] 80 mg PO QHS #30 tablet 08/12/20 09/27/20 Unknown Rx Dexamethasone [Decadron] 6 mg PO DAILY #10 tablet 08/13/20 09/27/20 Unknown Rx Active Meds: Active Medications Acetaminophen (Acetaminophen 325 Mg Tab) 650 mg PO Q4HR PRN PRN Reason: Pain MILD(1-3)/Fever >100.5/GARCIA Al Hydrox/Mg Hydrox/Simethicone (Alum-Mag Hydroxide-Simethicone [phone]/5ml Oral Liqd 30 Ml) 30 ml PO Q4HR PRN PRN Reason: Indigestion Magnesium Hydroxide (Magnesium Hydroxide (Mom) Oral Liqd Udc) 30 ml PO Q12HR PRN PRN Reason: Constipation Mental Status Exam - Vital signs Last Vital Signs Temp 97.6 F 09/28/20 07:59 Pulse 67 09/28/20 07:59 Resp 18 09/28/20 07:59 BP 124/90 09/28/20 07:59 Pulse Ox 97 09/28/20 07:59 Results Result Diagrams: 09/27/20 14:22 09/27/20 14:22 Abnormal lab results 09/27/20 09/27/20 09/27/20 Range/Units 14:22 14:22 14:22 MCHC (32-34) % Barton % (Auto) (0.0-7.3) % Sodium 135 L (137-145) mmol/L Carbon Dioxide 21 L (22-30) mmol/L Glucose 110 H (75-100) mg/dL Salicylates < 0.3 L (2.8-20.0) mg/dL Acetaminophen 5.0 L (10.0-30.0) ug/mL 09/27/20 Range/Units 14:22 MCHC 35 H (32-34) % Barton % (Auto) 9.3 H (0.0-7.3) % Sodium (137-145) mmol/L Carbon Dioxide (22-30) mmol/L Glucose (75-100) mg/dL Salicylates (2.8-20.0) mg/dL Acetaminophen (10.0-30.0) ug/mL All other labs normal. Assessment and Plan - Psychiatric problem (1) Schizoaffective disorder Current Visit: Yes Status: Acute
== END 2020-09-28 16:59 ==
LOC: ED 13:36
DX: R44.0 Auditory hallucinations (principal); R45.851 Suicidal ideations; I11.0 Hypertensive heart disease with heart failure; I50.9 Heart failure, unspecified; I25.2 Old myocardial infarction; E11.9 Type 2 diabetes mellitus without complications; G40.909 Epilepsy, unspecified, not intractable, without status epilepticus; J44.9 Chronic obstructive pulmonary disease, unspecified; Z21 Asymptomatic human immunodeficiency virus [HIV] infection status; F17.200 Nicotine dependence, unspecified, uncomplicated; Z86.73 Personal history of transient ischemic attack (TIA), and cerebral infarction without residual deficits; Z79.82 Long term (current) use of aspirin; Z79.4 Long term (current) use of insulin; Z88.8 Allergy status to other drugs, medicaments and biological substances
CPT/HCPCS: 36415; 80048; 80307; 81001; 85025; 99284; U0003; 80320; G0480

== ENCOUNTER 2021-07-02 14:53 | Emergency (ER) | payer MEDICAID, MEDICARE ==
[2021-07-02] MEDS ORDERED: charcoal activated SOLUTION 25 GM/120 ML ONE (15:12)
[2021-07-02] MEDS ORDERED: charcoal activated SOLUTION 25 GM/120 ML PO ONE (15:13)
--- NOTE | 2021-07-02 15:21 | Emergency Department Report ---
HPI - General Chief Complaint: Psych Time Seen by Provider: 07/02/21 15:02 - HPI HPI: Room 12 The patient is a 55-year-old male present with a chief complaint of suicidal ideation. Patient states he has felt suicidal for several days and has had auditory hallucinations telling him to harm himself. The patient states approximately 10 minutes before this interview he ingested 10-15 Vistaril 50 mg. Patient denies any other ingestions or any other attempts at harming himself. ED Past Medical Hx - Past Medical History Hx Hypertension: Yes Hx CVA: Yes (left sided weakness) Hx Heart Attack/AMI: Yes Hx Congestive Heart Failure: Yes Hx Diabetes: Yes Hx Seizures: Yes Hx Psychiatric Treatment: Yes (PTSD,depression) Hx Asthma: Yes Hx COPD: Yes Hx HIV: Yes Additional medical history: Cerebral palsy - Surgical History Additional Surgical History: CABG - Family History Family history: no significant - Social History Smoking Status: Unknown if ever smoked Substance Use Type: None - Medications Home Medications: Home Medications Medication Instructions Recorded Confirmed Last Taken Type Albuterol Mdi (or & Nicu Only) 2 puff IH Q4H PRN 06/05/19 09/29/20 07/03/20 History [ProAir HFA Inhaler] Doxepin [SINEquan] 100 mg PO QHS 06/05/19 09/29/20 07/03/20 History Fluticasone/Salmeterol(Nf) [Advair 2 puff IH BID 06/05/19 09/29/20 07/03/20 History HFA 230-21 mcg] Furosemide [Lasix TAB] 40 mg PO QDAY 06/05/19 09/29/20 07/03/20 History 40 mg Ipratropium/Albuterol Sulfate 1 spray IH QID 06/05/19 09/29/20 07/03/20 History [Combivent Respimat] Mirtazapine [Remeron 15mg TAB] 15 mg PO QHS 06/05/19 09/29/20 07/03/20 16:00 History 15 mg Potassium Chloride [K-Dur] 20 meq PO QDAY 06/05/19 09/29/20 07/03/20 16:00 History 20 meq Nucynta 75 mg PO ONCE 04/13/20 09/29/20 07/03/20 16:00 History 75 mg Dicyclomine [Bentyl] 10 mg PO QID #30 capsule 04/14/20 09/29/20 07/03/20 Rx Metoprolol [Lopressor TAB] 100 mg PO BID #60 04/14/20 09/29/20 07/03/20 Rx 100 mg Phenytoin [Dilantin] 300 mg PO QHS #90 04/14/20 09/29/20 07/03/20 Rx 300 Triumeq 600-50-300 mg Tablet 600 mg PO DAILY 04/14/20 09/29/20 07/03/20 History 600-50-300 levETIRAcetam [Keppra TAB] 750 mg PO BID #90 tablet 04/14/20 09/29/20 07/03/20 Rx 750 Insulin NPH/Regular [NovoLIN 70/30] 20 unit SUB-Q QAM&QHS units 07/07/20 09/29/20 Unknown Rx Oxycodone HCl/Acetaminophen 1 each PO Q6HR PRN #10 07/07/20 09/29/20 Unknown Rx [Percocet 10/325 mg] Abacavir [Ziagen TAB] 600 mg PO DAILY tablet 07/12/20 09/29/20 Unknown Rx Acetaminophen [Acetaminophen TAB] 650 mg PO Q4H PRN tablet 07/12/20 09/29/20 Unknown Rx Arformoterol Nebu [Brovana Nebu] 15 mcg IH Q12HRT #1 ml 07/12/20 09/29/20 Unk nown Rx Dolutegravir [Tivicay] 50 mg PO DAILY tablet 07/12/20 09/29/20 Unknown Rx AtorvaSTATin [Lipitor] 80 mg PO QHS #30 tablet 08/12/20 09/29/20 Unknown Rx Dexamethasone [Decadron] 6 mg PO DAILY #10 tablet 08/13/20 09/29/20 Unknown Rx diphenhydrAMINE [Benadryl CAP] 100 mg PO HS 09/29/20 09/29/20 Unknown History ARIPiprazole [Abilify TAB] 20 mg PO QDAY #60 tablet 10/04/20 Unknown Rx Aspirin 325 mg PO QDAY #30 tablet 10/04/20 Unknown Rx Budesonide [Pulmicort Respules] 0.5 mg IH Q12HRT #1 nebu 10/04/20 Unknown Rx Clopidogrel [Plavix] 75 mg PO DAILY #30 tablet 10/04/20 Unknown Rx Docusate Sodium [Colace CAP] 100 mg PO BID PRN #60 capsule 10/04/20 Unknown Rx Melatonin [Melatonin 5MG TAB] 5 mg PO QHS PRN #30 tablet 10/04/20 Unknown Rx Mirtazapine [Remeron 15mg TAB] 30 mg PO QHS #30 tablet 10/04/20 Unknown Rx QUEtiapine [SEROquel] 25 mg PO DAILY #30 tablet 10/04/20 Unknown Rx QUEtiapine [SEROquel] 100 mg PO QHS #30 tablet 10/04/20 Unknown Rx Sertraline [Zoloft] 50 mg PO QDAY #30 tablet 10/04/20 Unknown Rx busPIRone [Buspar] 10 mg PO BID #60 10/04/20 Unknown Rx ED Review of Systems ROS: Stated complaint: SI Other details as noted in HPI Constitutional: no symptoms reported Eyes: denies: eye pain ENT: denies: throat pain Respiratory: no symptoms reported Cardiovascular: denies: chest pain Endocrine: no symptoms reported Gastrointestinal: denies: abdominal pain Musculoskeletal: denies: back pain Psychiatric: auditory hallucinations, suicidal thoughts Physical Exam - Physical Exam Physical Exam: GENERAL: The patient is well-developed well-nourished male sitting in chair eating snacks not appearing to be in acute distress. [] HEENT: Normocephalic. Atraumatic. Extraocular motions are intact. Patient has moist mucous membranes. NECK: Supple. Trachea midline CHEST/LUNGS: Clear to auscultation. There is no respiratory distress noted. HEART/CARDIOVASCULAR: Regular. There is no tachycardia. There is no gallop rub or murmur. ABDOMEN: Abdomen is soft, nontender. Patient has normal bowel sounds. There is no abdominal distention. SKIN: There is no rash. There is no edema. There is no diaphoresis. NEURO: The patient is awake, alert, and oriented. The patient is cooperative. The patient has no focal neurologic deficits. The patient has normal speech. GCS 15 MUSCULOSKELETAL: There is no evidence of acute injury. ED Medical Decision Making - Lab Data Result diagrams: 07/02/21 15:24 07/02/21 15:24 Vital Signs 07/02/21 07/02/21 07/02/21 15:25 15:31 15:45 Pulse Rate 108 H 108 H Respiratory 21 21 Rate Blood Pressure O2 Sat by Pulse 97 97 98 Oximetry 07/02/21 07/02/21 07/02/21 16:01 16:15 16:31 Pulse Rate 100 H 91 H 89 Respiratory 16 22 26 H Rate Blood Pressure O2 Sat by Pulse 97 95 99 Oximetry 07/02/21 07/02/21 07/02/21 16:45 17:01 17:15 Pulse Rate 80 87 81 Respiratory 24 21 18 Rate Blood Pressure O2 Sat by Pulse 97 96 97 Oximetry 07/02/21 07/02/21 07/02/21 17:31 17:45 18:01 Pulse Rate 88 81 88 Respiratory 17 20 17 Rate Blood Pressure O2 Sat by Pulse 97 95 97 Oximetry 07/02/21 07/02/21 07/02/21 18:15 18:31 18:45 Pulse Rate 92 H 86 73 Respiratory 21 24 19 Rate Blood Pressure 112/71 O2 Sat by Pulse 96 97 96 Oximetry 07/02/21 07/02/21 19:01 19:15 Pulse Rate 96 H 79 Respiratory 24 19 Rate Blood Pressure 102/74 102/74 O2 Sat by Pulse 97 96 Oximetry - Differential Diagnosis Suicidal ideation Critical care attestation.: If time is entered above; I have spent that time in minutes in the direct care of this critically ill patient, excluding procedure time. ED Disposition Clinical Impression: Suicidal ideation Disposition: [address] [place] [address] Is pt being admited?: No Does the pt Need Aspirin: No Condition: Stable Time of Disposition: 19:43 (Awaiting acceptance)
[2021-07-02 15:38] LABS: Basophils % (Auto) 0.7 % (0.0-1.8); Eosinophils # (Auto) 0.1 K/mm3 (0.0-0.4); Eosinophils % (Auto) 1.6 % (0.0-4.3); Hematocrit 42.9 % (35.5-45.6); Hemoglobin 15.3 gm/dl (11.8-15.2); Lymphocytes # (Auto) 1.9 K/mm3 (1.2-5.4); Lymphocytes % (Auto) 31.2 % (13.4-35.0); Mean Corpuscular HGB Conc 36 % (32-34); Mean Corpuscular Volume 90 fl (84-94); Monocytes # (Auto) 0.7 K/mm3 (0.0-0.8); Monocytes % (Auto) 11.4 % (0.0-7.3); Platelet Count 254 K/mm3 (140-440); Red Blood Count 4.78 M/mm3 (3.65-5.03); Red Cell Distribution Width 13.3 % (13.2-15.2)
[2021-07-02 16:03] LABS: Alanine Aminotransferase 22 units/L (7-56); Albumin 3.1 g/dL (3.9-5); Blood Urea Nitrogen 10 mg/dL (9-20); Calcium 8.3 mg/dL (8.4-10.2); Hemolysis Index 4
[2021-07-02 16:08] LABS: BUN/Creatinine Ratio 14
[2021-07-03 02:14] LABS: Amphetamine Screen,Urine PRESUMPTIVE NEGATIVE; Benzodiazepines Screen,Urine PRESUMPTIVE NEGATIVE; Cannabinoid Screen,Urine PRESUMPTIVE NEGATIVE; Cocaine Screen,Urine PRESUMPTIVE NEGATIVE; Methadone Screen,Urine PRESUMPTIVE NEGATIVE; Opiate Screen,Urine PRESUMPTIVE NEGATIVE
[2021-07-03 02:17] LABS: Bacteria,Urine 1+ /HPF (Negative); Bilirubin,Urine NEG (Negative); Blood,Urine NEG (Negative); Color,Urine Yellow (Yellow); Mucus,Urine FEW /HPF
[2021-07-03 02:25] LABS: Protein,Urine >500 mg/dL (Negative)
--- NOTE | 2021-07-03 09:40 | Consultation ---
History of Present Illness - Reason for Consult Consult date: 07/03/21 Reason for consult: SA - History of Present Psychiatric Illness ED Note: The patient is a 55-year-old male present with a chief complaint of suicidal ideation. Patient states he has felt suicidal for several days and has had auditory hallucinations telling him to harm himself. The patient states approximately 10 minutes before this interview he ingested 10-15 Vistaril 50 mg. Patient denies any other ingestions or any other attempts at harming himself. Phan myers is a 55 year old male with history of Bipolar, Schizoaffective, PTSD who presents to the ED with suicidal attempt via overdosing on pills. In my interview with the patient, he is calm. The patient endorses auditory hallucinations stating " the voices is killing me, voices telling me to harm myself." The patient reports consuming 12 pills of unknown dosage of Doxepin and 10-15 Vistaril 50 mg. The patient continues to endorse suicidal ideation with a plan to overdose on pills. He denies homicidal thoughts and admits to having intermittent visual hallucinations. Psych History Diagnoses: Bipolar, Schizoaffective, PTSD Suicide attempts or Self-harm behavior:Yes- Multiple Prior psychiatric hospitalizations: Yes Substance Abuse history:Denies Previous psychiatric medications tried:Remeron. Vistaril, Doxepin Outpatient treatment: Denies PAST MEDICAL HISTORY: none reported Family Psychiatric History: None reported or documented SOCIAL HISTORY Marital Status: Living Arrangements: Lives alone Employment Status:Disabled Access to guns/weapons: Yes Education: College History of Abuse: Denies Legal History: None reported REVIEW OF SYSTEMS Constitutional: Negative for weight loss ENT: Negative for stridor Respiratory: Negative for cough or hemoptysis All other systems reviewed and are negative MENTAL STATUS EXAMINATION General Appearance and Behavior: Age appropriate, good hygiene, wearing appropri ate clothes, sleeping, cooperative Cooperation: Participating but drowsy Psychomotor Behavior: unremarkable and within normal limits Mood: "hallucinating" Affect and affective range: congruent with mood Thought Process:hallucinating Thought Content: Suicidal Speech: Normal volume, Regular rate and rhythm, Suicidal Ideation: Yes Homicidal Ideation:Denies Hallucinations:Yes- auditory/ visual Delusions: None elicited Impulse Control: Questionable Insight and Judgment: Limited insight and poor judgment, Memory: Normal, Attention: Normal Orientation: Alert, oriented Assessment and Plan (1)Schizoaffective disorder, Bipolar type- F25.0 Treatment plan Continue 1013 Start Zyprexa 10mg Start Depakote 250mg po BID Risks, benefits and alternatives of medications discussed with the patient, questions answered and consent obtained from patient. PSYCHOTHERAPY: Supportive psychotherapy provided MEDICAL: Per primary team DELIRIUM PRECAUTIONS: Please re-orient patient frequently, keep lights on during the day, and minimize benzodiazepines and opiates as these medications could worsen patient's confusion. GLOBAL LOGISTICS MANAGER: Defer to primary Disposition: Recommend acute psychiatric inpatient treatment. Will follow. Thank you for the consult. Please contact with any questions and/or concerns. Case staffed with Dr. Coelho Medications and Allergies Medications and Allergies Allergies Allergy/AdvReac Type Severity Reaction Status Date / Time metoclopramide [From Reglan] Allergy Anaphylaxis Verified 09/27/20 13:41 prochlorperazine Allergy Anaphylaxis Verified 09/27/20 13:41 [From Compazine] promethazine [From Phenergan] Allergy Anaphylaxis Verified 09/27/20 13:41 rice Allergy Hives Verified 09/27/20 13:41 Home Medications Medication Instructions Recorded Confirmed Last Taken Type Albuterol Mdi (or & Nicu Only) 2 puff IH Q4H PRN 06/05/19 09/29/20 07/03/20 History [ProAir HFA Inhaler] Doxepin [SINEquan] 100 mg PO QHS 06/05/19 09/29/20 07/03/20 History Fluticasone/Salmeterol(Nf) [Advair 2 puff IH BID 06/05/19 09/29/20 07/03/20 History HFA 230-21 mcg] Furosemide [Lasix TAB] 40 mg PO QDAY 06/05/19 09/29/20 07/03/20 History 40 mg Ipratropium/Albuterol Sulfate 1 spray IH QID 06/05/19 09/29/20 07/03/20 History [Combivent Respimat] Mirtazapine [Remeron 15mg TAB] 15 mg PO QHS 06/05/19 09/29/20 07/03/20 16:00 History 15 mg Potassium Chloride [K-Dur] 20 meq PO QDAY 06/05/19 09/29/20 07/03/20 16:00 History 20 meq Nucynta 75 mg PO ONCE 07/14/20 12/30/20 10/03/20 16:00 History 75 mg Dicyclomine [Bentyl] 10 mg PO QID #30 capsule 04/14/20 09/29/20 07/03/20 Rx Metoprolol [Lopressor TAB] 100 mg PO BID #60 04/14/20 09/29/20 07/03/20 Rx 100 mg Phenytoin [Dilantin] 300 mg PO QHS #90 04/14/20 09/29/20 07/03/20 Rx 300 Triumeq 600-50-300 mg Tablet 600 mg PO DAILY 04/14/20 09/29/20 07/03/20 History 600-50-300 levETIRAcetam [Keppra TAB] 750 mg PO BID #90 tablet 04/14/20 09/29/20 07/03/20 Rx 750 Insulin NPH/Regular [NovoLIN 70/30] 20 unit SUB-Q QAM&QHS units 07/07/20 09/29/20 Unknown Rx Oxycodone HCl/Acetaminophen 1 each PO Q6HR PRN #10 07/07/20 09/29/20 Unknown Rx [Percocet 10/325 mg] Abacavir [Ziagen TAB] 600 mg PO DAILY tablet 07/12/20 09/29/20 Unknown Rx Acetaminophen [Acetaminophen TAB] 650 mg PO Q4H PRN tablet 07/12/20 09/29/20 Unknown Rx Arformoterol Nebu [Brovana Nebu] 15 mcg IH Q12HRT #1 ml 07/12/20 09/29/20 Unknown Rx Dolutegravir [Tivicay] 50 mg PO DAILY tablet 07/12/20 09/29/20 Unknown Rx AtorvaSTATin [Lipitor] 80 mg PO QHS #30 tablet 08/12/20 09/29/20 Unknown Rx Dexamethasone [Decadron] 6 mg PO DAILY #10 tablet 08/13/20 09/29/20 Unknown Rx diphenhydrAMINE [Benadryl CAP] 100 mg PO HS 09/29/20 09/29/20 Unknown History ARIPiprazole [Abilify TAB] 20 mg PO QDAY #60 tablet 10/04/20 Unknown Rx Aspirin 325 mg PO QDAY #30 tablet 10/04/20 Unknown Rx Budesonide [Pulmicort Respules] 0.5 mg IH Q12HRT #1 nebu 10/04/20 Unknown Rx Clopidogrel [Plavix] 75 mg PO DAILY #30 tablet 10/04/20 Unknown Rx Docusate Sodium [Colace CAP] 100 mg PO BID PRN #60 capsule 10/04/20 Unknown Rx Melatonin [Melatonin 5MG TAB] 5 mg PO QHS PRN #30 tablet 10/04/20 Unknown Rx Mirtazapine [Remeron 15mg TAB] 30 mg PO QHS #30 tablet 10/04/20 Unknown Rx QUEtiapine [SEROquel] 25 mg PO DAILY #30 tablet 10/04/20 Unknown Rx QUEtiapine [SEROquel] 100 mg PO QHS #30 tablet 10/04/20 Unknown Rx Sertraline [Zoloft] 50 mg PO QDAY #30 tablet 10/04/20 Unknown Rx busPIRone [Buspar] 10 mg PO BID #60 10/04/20 Unknown Rx Mental Status Exam - Vital signs Last Vital Signs Temp 97.7 F 07/03/21 02:52 Pulse 72 07/03/21 02:52 Resp 16 07/03/21 02:52 BP 114/74 07/03/21 02:52 Pulse Ox 95 07/03/21 02:52 Results Result Diagrams: 07/02/21 15:24 07/02/21 15:24 Abnormal lab results 07/02/21 07/02/21 07/02/21 Range/Units 15:24 15:24 15:24 Hgb 15.3 H (11.8-15.2) gm/dl MCHC 36 H (32-34) % [place] % (Auto) 11.4 H (0.0-7.3) % Carbon Dioxide (22-30) mmol/L Creatinine (0.8-1.3) mg/dL Glucose (75-100) mg/dL Calcium (8.4-10.2) mg/dL Albumin (3.9-5) g/dL Salicylates < 0.3 L (2.8-20.0) mg/dL Acetaminophen 5.0 L (10.0-30.0) ug/mL 07/02/21 Range/Units 15:24 Hgb (11.8-15.2) gm/dl MCHC (32-34) % [place] % (Auto) (0.0-7.3) % Carbon Dioxide 20 L (22-30) mmol/L Creatinine 0.7 L (0.8-1.3) mg/dL Glucose 128 H (75-100) mg/dL Calcium 8.3 L (8.4-10.2) mg/dL Albumin 3.1 L (3.9-5) g/dL Salicylates (2.8-20.0) mg/dL Acetaminophen (10.0-30.0) ug/mL All other labs normal.
[2021-07-03] MEDS ORDERED: DIVALPROEX DR 250 MG TAB PO SCH (10:00)
--- NOTE | 2021-07-03 10:40 | Event Note ---
Date: 07/03/21 S: No events reported overnight O: Vital Signs - 24 hr 07/02/21 07/02/21 07/02/21 15:25 15:31 15:45 Temperature Pulse Rate 108 H 108 H Respiratory 21 21 Rate Blood Pressure Blood Pressure [Right] O2 Sat by Pulse 97 97 98 Oximetry 07/02/21 07/02/21 07/02/21 16:01 16:15 16:31 Temperature Pulse Rate 100 H 91 H 89 Respiratory 16 22 26 H Rate Blood Pressure Blood Pressure [Right] O2 Sat by Pulse 97 95 99 Oximetry 07/02/21 07/02/21 07/02/21 16:45 17:01 17:15 Temperature Pulse Rate 80 87 81 Respiratory 24 21 18 Rate Blood Pressure Blood Pressure [Right] O2 Sat by Pulse 97 96 97 Oximetry 07/02/21 07/02/21 07/02/21 17:31 17:45 18:01 Temperature Pulse Rate 88 81 88 Respiratory 17 20 17 Rate Blood Pressure Blood Pressure [Right] O2 Sat by Pulse 97 95 97 Oximetry 07/02/21 07/02/21 07/02/21 18:15 18:31 18:45 Temperature Pulse Rate 92 H 86 73 Respiratory 21 24 19 Rate Blood Pressure 112/71 Blood Pressure [Right] O2 Sat by Pulse 96 97 96 Oximetry 07/02/21 07/02/21 07/02/21 19:01 19:15 19:31 Temperature Pulse Rate 96 H 79 76 Respiratory 24 19 20 Rate Blood Pressure 102/74 102/74 102/74 Blood Pressure [Right] O2 Sat by Pulse 97 96 95 Oximetry 07/02/21 07/02/21 07/02/21 19:45 20:01 20:15 Temperature Pulse Rate 73 89 70 Respiratory 21 21 16 Rate Blood Pressure 102/74 107/70 107/70 Blood Pressure [Right] O2 Sat by Pulse 95 94 98 Oximetry 07/02/21 07/02/21 07/02/21 20:31 20:45 21:01 Temperature Pulse Rate 67 70 71 Respiratory 16 17 18 Rate Blood Pressure 107/70 107/70 106/70 Blood Pressure [Right] O2 Sat by Pulse 98 97 97 Oximetry 07/02/21 07/02/21 07/02/21 21:15 21:31 21:45 Temperature Pulse Rate 70 76 71 Respiratory 13 17 18 Rate Blood Pressure 106/70 106/70 106/70 Blood Pressure [Right] O2 Sat by Pulse 97 98 97 Oximetry 07/02/21 07/02/21 07/02/21 22:01 22:15 22:31 Temperature Pulse Rate 71 80 61 Respiratory 19 22 19 Rate Blood Pressure 119/74 119/74 119/74 Blood Pressure [Right] O2 Sat by Pulse 98 97 97 Oximetry 07/02/21 07/02/21 07/02/21 22:45 23:01 23:15 Temperature Pulse Rate 60 62 68 Respiratory 22 17 23 Rate Blood Pressure 119/74 124/79 124/79 Blood Pressure [Right] O2 Sat by Pulse 98 100 95 Oximetry 07/02/21 07/02/21 07/03/21 23:31 23:45 00:01 Temperature Pulse Rate 61 67 61 Respiratory 21 16 17 Rate Blood Pressure 124/79 124/79 124/76 Blood Pressure [Right] O2 Sat by Pulse 99 95 96 Oximetry 07/03/21 07/03/21 02:52 11:50 Temperature 97.7 F 98.6 F Pulse Rate 72 72 Respiratory 16 18 Rate Blood Pressure Blood Pressure 114/74 107/55 [Right] O2 Sat by Pulse 95 98 Oximetry A: Schizoaffective disorder P: 1013/awaiting inpatient psych. EKG for medical clearance EKG (read by myself)-normal sinus rhythm at 81 bpm. No ischemic changes seen. Normal axis
[2021-07-03 21:55] LABS: Hepatitis C Virus Antibody Non-Reactive (NonReactive)
[2021-07-03 22:42] LABS: Hepatitis B Surface Antigen Nonreactive (Negative)
[2021-07-04 00:30] LABS: Chol/HDL Ratio 5.4 %
[2021-07-04 05:57] VITALS: BP 114/68
[2021-07-04] MEDS ORDERED: ALBUTEROL 8.5 GM MDI INHALATION IH PRN (08:18)
[2021-07-04] MEDS ORDERED: ARFORMOTEROL 15 MCG/2 ML NEBU IH SCH (09:30)
[2021-07-04] MEDS ORDERED: BUDESONIDE 0.5 MG/2 ML NEBU IH SCH (09:30)
[2021-07-04] MEDS ORDERED: MIST INHAL IH SCH (10:00)
[2021-07-04] MEDS ORDERED: SALMETEROL IH SCH (10:00)
[2021-07-04] MEDS ORDERED: SERTRALINE 50 MG TAB PO SCH (10:00)
[2021-07-04] MEDS ORDERED: ASPIRIN 325 MG TAB PO SCH (10:00)
[2021-07-04] MEDS ORDERED: busPIRone 10 MG TAB PO SCH (10:00)
[2021-07-04] MEDS ORDERED: ARIPiprazole 10 MG TAB PO SCH (10:00)
[2021-07-04] MEDS ORDERED: [UNRECOGNIZED DRUG - OTHER] IH SCH (10:00)
[2021-07-04] MEDS ORDERED: ALBUTEROL SULFATE IH SCH (10:00)
[2021-07-04] MEDS ORDERED: CLOPIDOGREL 75 MG TAB PO SCH (10:00)
[2021-07-04] MEDS ORDERED: IPRATROPIUM IH SCH (10:00)
[2021-07-04] MEDS ORDERED: INSULIN NPH/REGULAR 70/30 INJ SUB-Q SCH (10:00)
[2021-07-04] MEDS ORDERED: ALBUTEROL 2.5 MG/3 ML NEBU IH PRN (10:00)
[2021-07-04] MEDS ORDERED: DOCUSATE SODIUM 100 MG CAP PO PRN (10:00)
[2021-07-04] MEDS ORDERED: FLUTICASONE IH SCH (10:00)
[2021-07-04] MEDS ORDERED: FUROSEMIDE 40 MG TAB PO SCH (10:00)
[2021-07-04] MEDS ORDERED: ACETAMINOPHEN 325 MG TAB PO PRN (10:00)
[2021-07-04] MEDS ORDERED: IPRATROPIUM/ALBUTEROL SULFATE 3 ML AMPUL.NEB IH SCH (14:00)
[2021-07-04] MEDS ORDERED: diphenhydrAMINE 50 MG CAP PO SCH (22:00)
[2021-07-05] MEDS ORDERED: EFAVIRENZ 600 MG, TENOFOVIR 300 MG, EMTRICITABINE 200 MG PO SCH (06:00)
--- NOTE | 2021-07-05 11:13 | Electrocardiograph Report ---
[facility] Test Date: 2021-07-03 Test Time: 00:57:17 Pat Name: MARLY COELHO Department: Room: [facility] Gender: M Voice Intercept Technician: CONSUELO : 1965 Requested By: JEN HERNANDEZ Order Number: [id number] Reading MD: Helio Murray Measurements Intervals [place] Rate: 65 P: 49 MS: 154 QRS: 73 QRSD: 94 T: 90 QT: 433 QTc: 450 Interpretive Statements Sinus rhythm Nonspecific T abnrm, anterolateral leads No previous ECG available for comparison Electronically Signed On 07-05-2021 11:13:03 EDT by Helio Murray
--- NOTE | 2021-07-05 11:19 | Electrocardiograph Report ---
[facility] Test Date: 2021-07-03 Test Time: 11:42:14 Pat Name: MARLY COELHO Department: Room: Gender: M Director Patient Financial Services: SASHA : 1965 Requested By: ROBIN QUIROGA Order Number: [id number] Reading MD: Helio Murray Measurements Intervals [place] Rate: 81 P: 81 NV: 144 QRS: 79 QRSD: 89 T: 99 QT: 383 QTc: 446 Interpretive Statements Sinus rhythm Consider old anterior infarct versus V1-V3 lead reversal Nonspecific T abnormalities, lateral leads Compared to ECG 07/03/2021 00:57:17 No significant change Electronically Signed On 07-05-2021 11:18:57 EDT by Helio Murray
== END 2021-07-03 22:00 ==
LOC: EEVIPCON 14:53 → ED 14:53 → 5A 07-03 17:18 → UNDOADMIN 07-03 17:18 → ED 07-03 22:00
DX: R45.851 Suicidal ideations (principal); I11.0 Hypertensive heart disease with heart failure; I50.9 Heart failure, unspecified; Z86.73 Personal history of transient ischemic attack (TIA), and cerebral infarction without residual deficits; E11.8 Type 2 diabetes mellitus with unspecified complications; J44.9 Chronic obstructive pulmonary disease, unspecified; R56.9 Unspecified convulsions; F43.10 Post-traumatic stress disorder, unspecified; F32.9 Major depressive disorder, single episode, unspecified; G80.9 Cerebral palsy, unspecified; Z98.890 Other specified postprocedural states
CPT/HCPCS: 36415; 80053; 80061; 80074; 80307; 80320; 81001; 83036; 84443; 85025; 93005; 99285; G0480; J1815; U0003

== ENCOUNTER 2021-07-03 18:49 | Inpatient (IN) | payer MEDICARE ==
[2021-07-04 06:17] LABS: Hepatitis C Virus Antibody Non-Reactive (NonReactive)
[2021-07-04 06:24] LABS: Hepatitis B Surface Antigen Nonreactive (Negative)
[2021-07-04 06:44] LABS: Chol/HDL Ratio 4.68 %
--- NOTE | 2021-07-04 08:28 | History and Physical Report ---
GP History & Physical - History of Present Illness Date of admission: 07/03/21 Date of Examination: 07/04/21 Reason for Admission: Danger to self, Failure of Outpatient Treatment Chief Complaint: suicidal ideation History of Present Illness: The patient was seen in the ED: Marly coelho is a 55 year old male with history of Bipolar, Schizoaffective, PTSD who presents to the ED with suicidal attempt via overdosing on pills. In my interview with the patient, he is calm. The patient endorses auditory hallucinations stating " the voices is killing me, voices telling me to harm myself." The patient reports consuming 12 pills of unknown dosage of Doxepin and 10-15 Vistaril 50 mg. The patient continues to endorse suicidal ideation with a plan to overdose on pills. He denies homicidal thoughts and admits to having intermittent visual hallucinations. The patient was seen this morning, he is irritable. He reports that he stopped taking psychotropic medications about 3 months ago due to his insurance overlapped. The patient continue to endorse auditory hallucinations, suicidal ideation with a plan to overdose and shoot himself. He denies having visual hallucinations and denies homicidal ideation. Psych History Diagnoses: Bipolar, Schizoaffective, PTSD Suicide attempts or Self-harm behavior:Yes- Multiple Prior psychiatric hospitalizations: Yes Substance Abuse history:Denies Previous psychiatric medications tried:Remeron. Vistaril, Doxepin Outpatient treatment: Denies PAST MEDICAL HISTORY: none reported Family Psychiatric History: None reported or documented SOCIAL HISTORY Marital Status: to his partner Living Arrangements: Lives alone Employment Status:Disabled Access to guns/weapons: Yes Education: College History of Abuse: Denies Legal History: None reported REVIEW OF SYSTEMS Constitutional: Negative for weight loss ENT: Negative for stridor Respiratory: Negative for cough or hemoptysis All other systems reviewed and are negative MENTAL STATUS EXAMINATION General Appearance and Behavior: Age appropriate, good hygiene, wearing appropriate clothes, sleeping, cooperative Cooperation: Participating but drowsy Psychomotor Behavior: unremarkable and within normal limits Mood: "hallucinating" Affect and affective range: congruent with mood Thought Process:hallucinating Thought Content: Suicidal Speech: Normal volume, Regular rate and rhythm, Suicidal Ideation: Yes Homicidal Ideation:Denies Hallucinations:Yes- auditory/ visual Delusions: None elicited Impulse Control: Questionable Insight and Judgment: Limited insight and poor judgment, Memory: Normal, Attention: Normal Orientation: Alert, oriented Assessment and Plan (1)Schizoaffective disorder, Bipolar type- F25.0 Current Visit: Yes Status: Acute Treatment Plan Patient admitted for inpatient psychiatric evaluation, medication adjustment and close monitoring The patient's behavior, mood, sleep and appetite will be closely monitored. Patient enrolled in individual and group therapeutic sessions and encouraged to attend. Patient provided with a safe and structured environment. Patient's physical health needs will be addressed by the Hospitalist. Hospitalist Consulted Labs including CBC, CMP, Lipid profile and Hemoglobin A1C levels ordered for baseline reference Social Assessment will be completed and the Underground Distribution Engineer will work with patient and family to ensure a suitable and safe disposition Medication adjustment will be made as clinically indicated Continued Home medications Usual Wellness Synagogue/Preservation: - Start Trazodone 50 mg po QHS & 50 mg po QHS PRN between 10 PM & 2 AM for insomnia - Start Melatonin 5 mg po QHS to promote circadian rhythm The patient agreed on the treatment plan, understood the risk, benefit, alternative treatment, potential consequence of no treatment, and gave informed consent. Estimated days: 7 Post hospital care: primary care provider, psychiatric provider Case staffed with Dr. Coelho Reaction to Hospitalization: Accepting Medications and Allergies Medications and Allergies Allergies Allergy/AdvReac Type Severity Reaction Status Date / Time metoclopramide [From Reglan] Allergy Anaphylaxis Verified 09/27/20 13:41 prochlorperazine Allergy Anaphylaxis Verified 09/27/20 13:41 [From Compazine] promethazine [From Phenergan] Allergy Anaphylaxis Verified 09/27/20 13:41 rice Allergy Hives Verified 09/27/20 13:41 Home Medications Medication Instructions Recorded Confirmed Last Taken Type Albuterol Mdi (or & Nicu Only) 2 puff IH Q4H PRN 06/05/19 09/29/20 07/03/20 History [ProAir HFA Inhaler] Doxepin [SINEquan] 100 mg PO QHS 06/05/19 09/29/20 07/03/20 History Fluticasone/Salmeterol(Nf) [Advair 2 puff IH BID 06/05/19 09/29/20 07/03/20 History HFA 230-21 mcg] Furosemide [Lasix TAB] 40 mg PO QDAY 09/05/19 12/30/20 10/03/20 History 40 mg Ipratropium/Albuterol Sulfate 1 spray IH QID 06/05/19 09/29/20 07/03/20 History [Combivent Respimat] Mirtazapine [Remeron 15mg TAB] 15 mg PO QHS 06/05/19 09/29/20 07/03/20 16:00 History 15 mg Potassium Chloride [K-Dur] 20 meq PO QDAY 06/05/19 09/29/20 07/03/20 16:00 Hist ory 20 meq Nucynta 75 mg PO ONCE 04/13/20 09/29/20 07/03/20 16:00 History 75 mg Dicyclomine [Bentyl] 10 mg PO QID #30 capsule 04/14/20 09/29/20 07/03/20 Rx Metoprolol [Lopressor TAB] 100 mg PO BID #60 04/14/20 09/29/20 07/03/20 Rx 100 mg Phenytoin [Dilantin] 300 mg PO QHS #90 04/14/20 09/29/20 07/03/20 Rx 300 Triumeq 600-50-300 mg Tablet 600 mg PO DAILY 04/14/20 09/29/20 07/03/20 History 600-50-300 levETIRAcetam [Keppra TAB] 750 mg PO BID #90 tablet 04/14/20 09/29/20 07/03/20 Rx 750 Insulin NPH/Regular [NovoLIN 70/30] 20 unit SUB-Q QAM&QHS units 07/07/20 09/29/20 Unknown Rx Oxycodone HCl/Acetaminophen 1 each PO Q6HR PRN #10 07/07/20 09/29/20 Unknown Rx [Percocet 10/325 mg] Abacavir [Ziagen TAB] 600 mg PO DAILY tablet 07/12/20 09/29/20 Unknown Rx Acetaminophen [Acetaminophen TAB] 650 mg PO Q4H PRN tablet 07/12/20 09/29/20 Unknown Rx Arformoterol Nebu [Brovana Nebu] 15 mcg IH Q12HRT #1 ml 07/12/20 09/29/20 Unknown Rx Dolutegravir [Tivicay] 50 mg PO DAILY tablet 07/12/20 09/29/20 Unknown Rx AtorvaSTATin [Lipitor] 80 mg PO QHS #30 tablet 08/12/20 09/29/20 Unknown Rx Dexamethasone [Decadron] 6 mg PO DAILY #10 tablet 08/13/20 09/29/20 Unknown Rx diphenhydrAMINE [Benadryl CAP] 100 mg PO HS 09/29/20 09/29/20 Unknown History ARIPiprazole [Abilify TAB] 20 mg PO QDAY #60 tablet 10/04/20 Unknown Rx Aspirin 325 mg PO QDAY #30 tablet 10/04/20 Unknown Rx Budesonide [Pulmicort Respules] 0.5 mg IH Q12HRT #1 nebu 10/04/20 Unknown Rx Clopidogrel [Plavix] 75 mg PO DAILY #30 tablet 10/04/20 Unknown Rx Docusate Sodium [Colace CAP] 100 mg PO BID PRN #60 capsule 10/04/20 Unknown Rx Melatonin [Melatonin 5MG TAB] 5 mg PO QHS PRN #30 tablet 10/04/20 Unknown Rx Mirtazapine [Remeron 15mg TAB] 30 mg PO QHS #30 tablet 10/04/20 Unknown Rx QUEtiapine [SEROquel] 25 mg PO DAILY #30 tablet 10/04/20 Unknown Rx QUEtiapine [SEROquel] 100 mg PO QHS #30 tablet 10/04/20 Unknown Rx Sertraline [Zoloft] 50 mg PO QDAY #30 tablet 10/04/20 Unknown Rx busPIRone [Buspar] 10 mg PO BID #60 10/04/20 Unknown Rx Results - Results Labs/Vitals: Laboratory Last Values POC Glucose 115 mg/dL (70-105) H 07/03/21 22:31 Triglycerides 115 mg/dL (2-149) 07/04/21 05:33 Cholesterol 192 mg/dL (50-199) 07/04/21 05:33 LDL Cholesterol Direct 145 mg/dL (50-130) H 07/04/21 05:33 HDL Cholesterol 41 mg/dL (40-59) 07/04/21 05:33 Cholesterol/HDL Ratio 4.68 % 07/04/21 05:33 TSH 0.689 mlU/mL (0.270-4.200) 07/04/21 05:33 Hepatitis A IgM Ab Non-reactive (NonReactive) 07/04/21 05:33 Hep Bs Antigen Nonreactive (Negative) 07/04/21 05:33 Hep B Core IgM Ab Non-reactive (NonReactive) 07/04/21 05:33 Hepatitis C Antibody Non-reactive (NonReactive) 07/04/21 05:33 Last Vital Signs Temp 97.7 F 07/03/21 23:40 Pulse 95 H 07/03/21 23:40 Resp 16 07/03/21 23:40 BP 118/81 07/03/21 23:40 Pulse Ox 95 07/03/21 23:40 Physical Examination - Constitutional Vitals: Vital Signs Temp Pulse Resp BP Pulse Ox 97.7 F 95 H 16 118/81 95 07/03/21 23:40 07/03/21 23:40 07/03/21 23:40 07/03/21 23:40 07/03/21 23:40 Temperature -Last 24 Hours Temperature 97.7 F Mental Status Exam - Vital signs Last Vital Signs Temp 97.7 F 07/03/21 23:40 Pulse 95 H 07/03/21 23:40 Resp 16 07/03/21 23:40 BP 118/81 07/03/21 23:40 Pulse Ox 95 07/03/21 23:40 Physician Certification - Certification Statement Physician Certification Statement: This is an acknowledgement statement that MARLY COELHO is a 55 year old M who requires inpatient psychiatric admission for treatment which could reasonably be expected to improve the patient's condition for Estimated period of time patient will need to remain in the hospital: [ ] Plan for post-hospital care: [ ]
--- NOTE | 2021-07-04 10:37 | Consultation ---
History of Present Illness - Reason for Consult Consult date: 07/04/21 JUAN, HTN, hx CVA - History of Present Illness Phan myers is a 55 year old male with history of JUAN, hypertension, history of CVA with left hemiparesis, bipolar, Schizoaffective, PTSD who presented to the ED with suicidal attempt via overdosing on pills. Psychiatry reports that the patient had auditory hallucinations stating " the voices is killing me, voices telling me to harm myself." The patient reportedly consumed 12 pills of unknown dosage of Doxepin and 10-15 Vistaril 50 mg. The patient reportedly has suicidal ideation with a plan to overdose on pills. He denied homicidal thoughts and admits to having intermittent visual hallucinations. Psychiatry consulted hospitalist service for above medical problems. Patient denies any chest pain or shortness of breath. No headache, cough or cold-like symptoms. Past History Past Medical History: CAD, stroke, other (JUAN, hypertension) Past Surgical History: No surgical history Social history: no significant social history Family history: no significant family history Medications and Allergies Allergies Allergy/AdvReac Type Severity Reaction Status Date / Time metoclopramide [From Reglan] Allergy Anaphylaxis Verified 09/27/20 13:41 prochlorperazine Allergy Anaphylaxis Verified 09/27/20 13:41 [From Compazine] promethazine [From Phenergan] Allergy Anaphylaxis Verified 09/27/20 13:41 rice Allergy Hives Verified 09/27/20 13:41 Home Medications Medication Instructions Recorded Confirmed Last Taken Type Albuterol Mdi (or & Nicu Only) 2 puff IH Q4H PRN 06/05/19 09/29/20 07/03/20 History [ProAir HFA Inhaler] Doxepin [SINEquan] 100 mg PO QHS 06/05/19 09/29/20 07/03/20 History Fluticasone/Salmeterol(Nf) [Advair 2 puff IH BID 06/05/19 09/29/20 07/03/20 History HFA 230-21 mcg] Furosemide [Lasix TAB] 40 mg PO QDAY 06/05/19 09/29/20 07/03/20 History 40 mg Ipratropium/Albuterol Sulfate 1 spray IH QID 06/05/19 09/29/20 07/03/20 History [Combivent Respimat] Mirtazapine [Remeron 15mg TAB] 15 mg PO QHS 06/05/19 09/29/20 07/03/20 16:00 History 15 mg Potassium Chloride [K-Dur] 20 meq PO QDAY 06/05/19 09/29/20 07/03/20 16:00 History 20 meq Nucynta 75 mg PO ONCE 04/13/20 09/29/20 07/03/20 16:00 History 75 mg Dicyclomine [Bentyl] 10 mg PO QID #30 capsule 04/14/20 09/29/20 07/03/20 Rx Metoprolol [Lopressor TAB] 100 mg PO BID #60 04/14/20 09/29/20 07/03/20 Rx 100 mg Phenytoin [Dilantin] 300 mg PO QHS #90 04/14/20 09/29/20 07/03/20 Rx 300 Triumeq 600-50-300 mg Tablet 600 mg PO DAILY 04/14/20 09/29/20 07/03/20 History 600-50-300 levETIRAcetam [Keppra TAB] 750 mg PO BID #90 tablet 04/14/20 09/29/20 07/03/20 Rx 750 Insulin NPH/Regular [NovoLIN 70/30] 20 unit SUB-Q QAM&QHS units 07/07/20 09/29/20 Unknown Rx Oxycodone HCl/Acetaminophen 1 each PO Q6HR PRN #10 07/07/20 09/29/20 Unknown Rx [Percocet 10/325 mg] Abacavir [Ziagen TAB] 600 mg PO DAILY tablet 07/12/20 09/29/20 Unknown Rx Acetaminophen [Acetaminophen TAB] 650 mg PO Q4H PRN tablet 07/12/20 09/29/20 Unknown Rx Arformoterol Nebu [Brovana Nebu] 15 mcg IH Q12HRT #1 ml 07/12/20 09/29/20 Unknown Rx Dolutegravir [Tivicay] 50 mg PO DAILY tablet 07/12/20 09/29/20 Unknown Rx AtorvaSTATin [Lipitor] 80 mg PO QHS #30 tablet 08/12/20 09/29/20 Unknown Rx Dexamethasone [Decadron] 6 mg PO DAILY #10 tablet 08/13/20 09/29/20 Unknown Rx diphenhydrAMINE [Benadryl CAP] 100 mg PO HS 09/29/20 09/29/20 Unknown History ARIPiprazole [Abilify TAB] 20 mg PO QDAY #60 tablet 10/04/20 Unknown Rx Aspirin 325 mg PO QDAY #30 tablet 10/04/20 Unknown Rx Budesonide [Pulmicort Respules] 0.5 mg IH Q12HRT #1 nebu 10/04/20 Unknown Rx Clopidogrel [Plavix] 75 mg PO DAILY #30 tablet 10/04/20 Unknown Rx Docusate Sodium [Colace CAP] 100 mg PO BID PRN #60 capsule 10/04/20 Unknown Rx Melatonin [Melatonin 5MG TAB] 5 mg PO QHS PRN #30 tablet 10/04/20 Unknown Rx Mirtazapine [Remeron 15mg TAB] 30 mg PO QHS #30 tablet 10/04/20 Unknown Rx QUEtiapine [SEROquel] 25 mg PO DAILY #30 tablet 10/04/20 Unknown Rx QUEtiapine [SEROquel] 100 mg PO QHS #30 tablet 10/04/20 Unknown Rx Sertraline [Zoloft] 50 mg PO QDAY #30 tablet 10/04/20 Unknown Rx busPIRone [Buspar] 10 mg PO BID #60 10/04/20 Unknown Rx Review of Systems All systems: negative Exam - Constitutional Vitals: Temp Pulse Resp BP Pulse Ox 97.7 F 95 H 16 118/81 98 07/03/21 23:40 07/03/21 23:40 07/03/21 23:40 07/03/21 23:40 07/04/21 08:55 General appearance: Present: no acute distress, well-nourished - EENT Eyes: Present: PERRL ENT: hearing intact, clear oral mucosa - Neck Neck: Present: supple, normal ROM - Respiratory Respiratory effort: normal Respiratory: bilateral: CTA - Cardiovascular Heart Sounds: Present: S1 & S2. Absent: rub, click - Extremities Extremities: pulses symmetrical, No edema Peripheral Pulses: within normal limits - Abdominal General gastrointestinal: Present: soft, non-tender, non-distended, normal bowel sounds Male genitourinary: Present: normal - Integumentary Integumentary: Present: clear, warm, dry - Musculoskeletal Musculoskeletal: gait normal, strength equal bilaterally - Psychiatric Psychiatric: appropriate mood/affect, intact judgment & insight - Neurologic Neurologic: CNII-XII intact, moves all extremities Results - Labs Labs: Abnormal lab results 07/03/21 07/04/21 Range/Units 22:31 05:33 POC Glucose 115 H (70-105) mg/dL LDL Cholesterol Direct 145 H (50-130) mg/dL Assessment and Plan Hypertension. Patient's blood pressure appears to be normotensive at present. Continue to monitor. Obstructive sleep apnea. Unsure if patient uses a CPAP at home. We will manish tor and obtain respiratory therapy evaluation. History CVA with left hemiparesis. Continue supportive care CAD with history of CABG x4. Resume home medications Bipolar disorder/schizoaffective/PTSD. Per psychiatry.
[2021-07-04] MEDS: levETIRAcetam 500 MG TAB PO SCH (21:27)
[2021-07-04] MEDS: PHENYTOIN 100 MG CAPSULE.ER PO SCH (21:29)
[2021-07-04] MEDS: METOPROLOL TARTRATE 100 MG TAB PO SCH (21:29)
[2021-07-04] MEDS ORDERED: MELATONIN 5 MG TAB PO PRN (23:27)
--- NOTE | 2021-07-05 10:32 | Progress Note ---
Subjective Date of service: 07/05/21 Subjective Comment: 07/05/2021: The patient was seen resting in bed. He continues to endorse commanding auditory hallucinations " voices telling me to kill myself." The admits having suicidal ideation with a plan to overdose on pills. He denies visual hallucinations and denies homicidal ideation REVIEW OF SYSTEMS Constitutional: Negative for weight loss ENT: Negative for stridor Respiratory: Negative for cough or hemoptysis All other systems reviewed and are negative MENTAL STATUS EXAMINATION General Appearance and Behavior: Age appropriate, good hygiene, wearing appropriate clothes, sleeping, cooperative Cooperation: Participating Psychomotor Behavior: unremarkable and within normal limits Mood: "hallucinating" Affect and affective range: congruent with mood Thought Process:hallucinating Thought Content: Suicidal Speech: Normal volume, Regular rate and rhythm, Suicidal Ideation: Yes Homicidal Ideation:Denies Hallucinations:Yes- auditory/ visual Delusions: None elicited Impulse Control: Questionable Insight and Judgment: Limited insight and poor judgment, Memory: Normal, Attention: Normal Orientation: Alert, oriented Assessment and Plan (1)Schizoaffective disorder, Bipolar type- F25.0 Current Visit: Yes Status: Acute Treatment Plan Patient admitted for inpatient psychiatric evaluation, medication adjustment and close monitoring The patient's behavior, mood, sleep and appetite will be closely monitored. Patient enrolled in individual and group therapeutic sessions and encouraged to attend. Patient provided with a safe and structured environment. Patient's physical health needs will be addressed by the Hospitalist. Hospitalist Consulted Labs including CBC, CMP, Lipid profile and Hemoglobin A1C levels ordered for baseline reference Social Assessment will be completed and the Emergency Management Director will work with patient and family to ensure a suitable and safe disposition Medication adjustment will be made as clinically indicated Continued Home medications Usual Wellness Protestant/Preservation: - Start Trazodone 50 mg po QHS & 50 mg po QHS PRN between 10 PM & 2 AM for insomnia - Start Melatonin 5 mg po QHS to promote circadian rhythm The patient agreed on the treatment plan, understood the risk, benefit, alternative treatment, potential consequence of no treatment, and gave informed consent. Estimated days: 7 Post hospital care: primary care provider, psychiatric provider Case staffed with Dr. Coelho Reaction to Hospitalization: Accepting Medications and Allergies Medications and Allergies Medications and Allergies Allergies Allergy/AdvReac Type Severity Reaction Status Date / Time metoclopramide [From Reglan] Allergy Anaphylaxis Verified 09/27/20 13:41 prochlorperazine Allergy Anaphylaxis Verified 09/27/20 13:41 [From Compazine] promethazine [From Phenergan] Allergy Anaphylaxis Verified 09/27/20 13:41 rice Allergy Hives Verified 09/27/20 13:41 Home Medications Medication Instructions Recorded Confirmed Last Taken Type Albuterol Mdi (or & Nicu Only) 2 puff IH Q4H PRN 06/05/19 09/29/20 07/03/20 History [ProAir HFA Inhaler] Doxepin [SINEquan] 100 mg PO QHS 06/05/19 09/29/20 07/03/20 History Fluticasone/Salmeterol(Nf) [Advair 2 puff IH BID 06/05/19 09/29/20 07/03/20 History HFA 230-21 mcg] Furosemide [Lasix TAB] 40 mg PO QDAY 06/05/19 09/29/20 07/03/20 History 40 mg Ipratropium/Albuterol Sulfate 1 spray IH QID 06/05/19 09/29/20 07/03/20 History [Combivent Respimat] Mirtazapine [Remeron 15mg TAB] 15 mg PO QHS 06/05/19 09/29/20 07/03/20 16:00 History 15 mg Potassium Chloride [K-Dur] 20 meq PO QDAY 06/05/19 09/29/20 07/03/20 16:00 History 20 meq Nucynta 75 mg PO ONCE 04/13/20 09/29/20 07/03/20 16:00 History 75 mg Dicyclomine [Bentyl] 10 mg PO QID #30 capsule 04/14/20 09/29/20 07/03/20 Rx Metoprolol [Lopressor TAB] 100 mg PO BID #60 04/14/20 09/29/20 07/03/20 Rx 100 mg Phenytoin [Dilantin] 300 mg PO QHS #90 04/14/20 09/29/20 07/03/20 Rx 300 Triumeq 600-50-300 mg Tablet 600 mg PO DAILY 04/14/20 09/29/20 07/03/20 History 600-50-300 levETIRAcetam [Keppra TAB] 750 mg PO BID #90 tablet 04/14/20 09/29/20 07/03/20 Rx 750 Insulin NPH/Regular [NovoLIN 70/30] 20 unit SUB-Q QAM&QHS units 07/07/2009/29 Unknown Rx Oxycodone HCl/Acetaminophen 1 each PO Q6HR PRN #10 07/07/20 09/29/20 Unknown Rx [Percocet 10/325 mg] Abacavir [Ziagen TAB] 600 mg PO DAILY tablet 07/12/20 09/29/20 Unknown Rx Acetaminophen [Acetaminophen TAB] 650 mg PO Q4H PRN tablet 07/12/20 09/29/20 Unknown Rx Arformoterol Nebu [Brovana Nebu] 15 mcg IH Q12HRT #1 ml 07/12/20 09/29/20 Unknown Rx Dolutegravir [Tivicay] 50 mg PO DAILY tablet 07/12/20 09/29/20 Unknown Rx AtorvaSTATin [Lipitor] 80 mg PO QHS #30 tablet 08/12/20 09/29/20 Unknown Rx Dexamethasone [Decadron] 6 mg PO DAILY #10 tablet 08/13/20 09/29/20 Unknown Rx diphenhydrAMINE [Benadryl CAP] 100 mg PO HS 09/29/20 09/29/20 Unknown History ARIPiprazole [Abilify TAB] 20 mg PO QDAY #60 tablet 10/04/20 Unknown Rx Aspirin 325 mg PO QDAY #30 tablet 10/04/20 Unknown Rx Budesonide [Pulmicort Respules] 0.5 mg IH Q12HRT #1 nebu 10/04/20 Unknown Rx Clopidogrel [Plavix] 75 mg PO DAILY #30 tablet 10/04/20 Unknown Rx Docusate Sodium [Colace CAP] 100 mg PO BID PRN #60 capsule 10/04/20 Unknown Rx Melatonin [Melatonin 5MG TAB] 5 mg PO QHS PRN #30 tablet 10/04/20 Unknown Rx Mirtazapine [Remeron 15mg TAB] 30 mg PO QHS #30 tablet 10/04/20 Unknown Rx QUEtiapine [SEROquel] 25 mg PO DAILY #30 tablet 10/04/20 Unknown Rx QUEtiapine [SEROquel] 100 mg PO QHS #30 tablet 10/04/20 Unknown Rx Sertraline [Zoloft] 50 mg PO QDAY #30 tablet 10/04/20 Unknown Rx busPIRone [Buspar] 10 mg PO BID #60 10/04/20 Unknown Rx Active Meds: Active Medications Aripiprazole (Aripiprazole 10 Mg Tab) 10 mg PO QDAY [facility] Aspirin (Aspirin 325 Mg Tab) 325 mg PO QDAY [facility] Atorvastatin Calcium (Atorvastatin 40 Mg Tab) 80 mg PO QHS [facility] Last Admin: 07/04/21 21:27 Dose: 80 mg Documented by: Buspirone HCl (Buspirone 10 Mg Tab) 10 mg PO BID [facility] Clopidogrel Bisulfate (Clopidogrel 75 Mg Tab) 75 mg PO DAILY [facility] Diphenhydramine HCl (Diphenhydramine 50 Mg Cap) 50 mg PO QHS [facility] Furosemide (Furosemide 40 Mg Tab) 40 mg PO QDAY [facility] Levetiracetam (Levetiracetam 500 Mg Tab) 750 mg PO BID [facility] Last Admin: 07/04/21 21:27 Dose: 750 mg Documented by: Melatonin (Melatonin 5 Mg Tab) 5 mg PO QHS PRN PRN Reason: Sleep Last Admin: 07/04/21 23:36 Dose: 5 mg Documented by: Metoprolol Tartrate (Metoprolol Tartrate 100 Mg Tab) 100 mg PO BID [facility] Last Admin: 07/04/21 21:29 Dose: Not Given Documented by: Phenytoin (Phenytoin 100 Mg Capsule.Er) 300 mg PO QHS [facility] Last Admin: 07/04/21 21:29 Dose: Not Given Documented by: Potassium Chloride (Potassium Chloride Er 20 Meq Tab) 20 meq PO QDAY [facility] Results - Results Labs/Vitals: Laboratory Last Values POC Glucose 115 mg/dL (70-105) H 07/03/21 22:31 Triglycerides 115 mg/dL (2-149) 07/04/21 05:33 Cholesterol 192 mg/dL (50-199) 07/04/21 05:33 LDL Cholesterol Direct 145 mg/dL (50-130) H 07/04/21 05:33 HDL Cholesterol 41 mg/dL (40-59) 07/04/21 05:33 Cholesterol/HDL Ratio 4.68 % 07/04/21 05:33 TSH 0.689 mlU/mL (0.270-4.200) 07/04/21 05:33 Hepatitis A IgM Ab Non-reactive (NonReactive) 07/04/21 05:33 Hep Bs Antigen Nonreactive (Negative) 07/04/21 05:33 Hep B Core IgM Ab Non-reactive (NonReactive) 07/04/21 05:33 Hepatitis C Antibody Non-reactive (NonReactive) 07/04/21 05:33 Last Vital Signs Temp 98.5 F 07/04/21 22:00 Pulse 80 07/04/21 22:00 Resp 18 07/04/21 22:00 BP 96/60 07/04/21 22:00 Pulse Ox 96 07/05/21 00:52
[2021-07-05] MEDS: ARIPiprazole 10 MG TAB PO SCH (18:21)
[2021-07-05] MEDS: ASPIRIN 325 MG TAB PO SCH (18:22)
[2021-07-05] MEDS: POTASSIUM CHLORIDE ER 20 MEQ TAB PO SCH (18:22)
[2021-07-05] MEDS: busPIRone 10 MG TAB PO SCH ×2 (18:22→22:22)
[2021-07-05] MEDS: levETIRAcetam 500 MG TAB PO SCH ×2 (18:24→22:23)
[2021-07-05] MEDS: FUROSEMIDE 40 MG TAB PO SCH (18:24)
[2021-07-05] MEDS: METOPROLOL TARTRATE 100 MG TAB PO SCH ×2 (18:25→22:26)
[2021-07-05] MEDS: CLOPIDOGREL 75 MG TAB PO SCH (18:26)
[2021-07-05] MEDS: diphenhydrAMINE 50 MG CAP PO SCH (22:23)
[2021-07-05] MEDS: PHENYTOIN 100 MG CAPSULE.ER PO SCH (22:26)
[2021-07-06] MEDS: FUROSEMIDE 40 MG TAB PO SCH (11:26)
[2021-07-06] MEDS: ARIPiprazole 10 MG TAB PO SCH (11:26)
[2021-07-06] MEDS: ASPIRIN 325 MG TAB PO SCH (11:26)
[2021-07-06] MEDS: CLOPIDOGREL 75 MG TAB PO SCH (11:27)
[2021-07-06] MEDS: levETIRAcetam 500 MG TAB PO SCH ×2 (11:27→21:39)
[2021-07-06] MEDS: POTASSIUM CHLORIDE ER 20 MEQ TAB PO SCH (11:27)
[2021-07-06] MEDS: busPIRone 10 MG TAB PO SCH ×2 (11:27→21:40)
[2021-07-06] MEDS: METOPROLOL TARTRATE 100 MG TAB PO SCH ×2 (11:47→22:24)
--- NOTE | 2021-07-06 12:38 | Progress Note ---
Subjective Date of service: 07/06/21 Subjective Comment: 07/05/2021: The patient was seen resting in bed. He continues to endorse commanding auditory hallucinations " voices telling me to kill myself." The admits having suicidal ideation with a plan to overdose on pills. He denies visual hallucinations and denies homicidal ideation. 07/06/2021: The patient was seen this morning, he reports not doing well. He continues to endorse commanding auditory hallucinations " voices telling me to kill myself." The admits having suicidal ideation with a plan to overdose on pills. He denies visual hallucinations and denies homicidal ideation. REVIEW OF SYSTEMS Constitutional: Negative for weight loss ENT: Negative for stridor Respiratory: Negative for cough or hemoptysis All other systems reviewed and are negative MENTAL STATUS EXAMINATION General Appearance and Behavior: Age appropriate, good hygiene, wearing appropriate clothes, sleeping, cooperative Cooperation: Participating Psychomotor Behavior: unremarkable and within normal limits Mood: "hallucinating" Affect and affective range: congruent with mood Thought Process:hallucinating Thought Content: Suicidal Speech: Normal volume, Regular rate and rhythm, Suicidal Ideation: Yes Homicidal Ideation:Denies Hallucinations:Yes- auditory/ visual Delusions: None elicited Impulse Control: Questionable Insight and Judgment: Limited insight and poor judgment, Memory: Normal, Attention: Normal Orientation: Alert, oriented Assessment and Plan (1)Schizoaffective disorder, Bipolar type- F25.0 Current Visit: Yes Status: Acute Treatment Plan Patient admitted for inpatient psychiatric evaluation, medication adjustment and close monitoring The patient's behavior, mood, sleep and appetite will be closely monitored. Patient enrolled in individual and group therapeutic sessions and encouraged to attend. Patient provided with a safe and structured environment. Patient's physical health needs will be addressed by the Hospitalist. Hospitalist Consulted Labs including CBC, CMP, Lipid profile and Hemoglobin A1C levels ordered for [facility] Social Assessment will be completed and the Fighting Vehicle Systems Maintainer will work with patient and family to ensure a suitable and safe disposition Medication adjustment will be made as clinically indicated Continued Home medications Usual Wellness Religious/Preservation: - Start Trazodone 50 mg po QHS & 50 mg po QHS PRN between 10 PM & 2 AM for insomnia - Start Melatonin 5 mg po QHS to promote circadian rhythm The patient agreed on the treatment plan, understood the risk, benefit, alternative treatment, potential consequence of no treatment, and gave informed consent. Estimated days: 7 Post hospital care: primary care provider, psychiatric provider Case staffed with Dr. Coelho Reaction to Hospitalization: Accepting Medications and Allergies Medications and Allergies Allergies Allergy/AdvReac Type Severity Reaction Status Date / Time metoclopramide [From Reglan] Allergy Anaphylaxis Verified 09/27/20 13:41 prochlorperazine Allergy Anaphylaxis Verified 09/27/20 13:41 [From Compazine] promethazine [From Phenergan] Allergy Anaphylaxis Verified 09/27/20 13:41 rice Allergy Hives Verified 09/27/20 13:41 Home Medications Medication Instructions Recorded Confirmed Last Taken Type Albuterol Mdi (or & Nicu Only) 2 puff IH Q4H PRN 06/05/19 09/29/20 07/03/20 History [ProAir HFA Inhaler] Doxepin [SINEquan] 100 mg PO QHS 06/05/19 09/29/20 07/03/20 History Fluticasone/Salmeterol(Nf) [Advair 2 puff IH BID 06/05/19 09/29/20 07/03/20 History HFA 230-21 mcg] Furosemide [Lasix TAB] 40 mg PO QDAY 06/05/19 09/29/20 07/03/20 History 40 mg Ipratropium/Albuterol Sulfate 1 spray IH QID 06/05/19 09/29/20 07/03/20 History [Combivent Respimat] Mirtazapine [Remeron 15mg TAB] 15 mg PO QHS 06/05/19 09/29/20 07/03/20 16:00 History 15 mg Potassium Chloride [K-Dur] 20 meq PO QDAY 06/05/19 09/29/20 07/03/20 16:00 History 20 meq Nucynta 75 mg PO ONCE 04/13/20 09/29/20 07/03/20 16:00 History 75 mg Dicyclomine [Bentyl] 10 mg PO QID #30 capsule 04/14/20 09/29/20 07/03/20 Rx Metoprolol [Lopressor TAB] 100 mg PO BID #60 04/14/20 09/29/20 07/03/20 Rx 100 mg Phenytoin [Dilantin] 300 mg PO QHS #90 07/09/29/20 07/03/20 Rx 300 Triumeq 600-50-300 mg Tablet 600 mg PO DAILY 04/14/20 09/29/20 07/03/20 History 600-50-300 levETIRAcetam [Keppra TAB] 750 mg PO BID #90 tablet 04/14/20 09/29/20 07/03/20 Rx 750 Insulin NPH/Regular [NovoLIN 70/30] 20 unit SUB-Q QAM&QHS units 07/07/20 09/29/20 Unknown Rx Oxycodone HCl/Acetaminophen 1 each PO Q6HR PRN #10 07/07/20 09/29/20 Unknown Rx [Percocet 10/325 mg] Abacavir [Ziagen TAB] 600 mg PO DAILY tablet 07/12/20 09/29/20 Unknown Rx Acetaminophen [Acetaminophen TAB] 650 mg PO Q4H PRN tablet 07/12/20 09/29/20 Unknown Rx Arformoterol Nebu [Brovana Nebu] 15 mcg IH Q12HRT #1 ml 07/12/20 09/29/20 Unknown Rx Dolutegravir [Tivicay] 50 mg PO DAILY tablet 07/12/20 09/29/20 Unknown Rx AtorvaSTATin [Lipitor] 80 mg PO QHS #30 tablet 08/12/20 09/29/20 Unknown Rx Dexamethasone [Decadron] 6 mg PO DAILY #10 tablet 08/13/20 09/29/20 Unknown Rx diphenhydrAMINE [Benadryl CAP] 100 mg PO HS 09/29/20 09/29/20 Unknown History ARIPiprazole [Abilify TAB] 20 mg PO QDAY #60 tablet 10/04/20 Unknown Rx Aspirin 325 mg PO QDAY #30 tablet 10/04/20 Unknown Rx Budesonide [Pulmicort Respules] 0.5 mg IH Q12HRT #1 nebu 10/04/20 Unknown Rx Clopidogrel [Plavix] 75 mg PO DAILY #30 tablet 10/04/20 Unknown Rx Docusate Sodium [Colace CAP] 100 mg PO BID PRN #60 capsule 10/04/20 Unknown Rx Melatonin [Melatonin 5MG TAB] 5 mg PO QHS PRN #30 tablet 10/04/20 Unknown Rx Mirtazapine [Remeron 15mg TAB] 30 mg PO QHS #30 tablet 10/04/20 Unknown Rx QUEtiapine [SEROquel] 25 mg PO DAILY #30 tablet 10/04/20 Unknown Rx QUEtiapine [SEROquel] 100 mg PO QHS #30 tablet 10/04/20 Unknown Rx Sertraline [Zoloft] 50 mg PO QDAY #30 tablet 10/04/20 Unknown Rx busPIRone [Buspar] 10 mg PO BID #60 10/04/20 Unknown Rx Active Meds: Active Medications Aripiprazole (Aripiprazole 10 Mg Tab) 10 mg PO QDAY [facility] Last Admin: 07/06/21 11:26 Dose: 10 mg Documented by: Aspirin (Aspirin 325 Mg Tab) 325 mg PO QDAY [facility] Last Admin: 07/06/21 11:26 Dose: 325 mg Documented by: Atorvastatin Calcium (Atorvastatin 40 Mg Tab) 80 mg PO QHS [facility] Last Admin: 07/05/21 22:22 Dose: 80 mg Documented by: Buspirone HCl (Buspirone 10 Mg Tab) 10 mg PO BID [facility] Last Admin: 07/06/21 11:27 Dose: 10 mg Documented by: Clopidogrel Bisulfate (Clopidogrel 75 Mg Tab) 75 mg PO DAILY [facility] Last Admin: 07/06/21 11:27 Dose: 75 mg Documented by: Diphenhydramine HCl (Diphenhydramine 50 Mg Cap) 50 mg PO QHS [facility] Last Admin: 07/05/21 22:23 Dose: 50 mg Documented by: Furosemide (Furosemide 40 Mg Tab) 40 mg PO QDAY [facility] Last Admin: 07/06/21 11:26 Dose: 40 mg Documented by: Levetiracetam (Levetiracetam 500 Mg Tab) 750 mg PO BID [facility] Last Admin: 07/06/21 11:27 Dose: 750 mg Documented by: Melatonin (Melatonin 5 Mg Tab) 5 mg PO QHS PRN PRN Reason: Sleep Last Admin: 07/04/21 23:36 Dose: 5 mg Documented by: Metoprolol Tartrate (Metoprolol Tartrate 100 Mg Tab) 100 mg PO BID [facility] Last Admin: 07/06/21 11:47 Dose: Not Given Documented by: Phenytoin (Phenytoin 100 Mg Capsule.Er) 300 mg PO QHS [facility] Last Admin: 07/05/21 22:26 Dose: Not Given Documented by: Potassium Chloride (Potassium Chloride Er 20 Meq Tab) 20 meq PO QDAY [facility] Last Admin: 07/06/21 11:27 Dose: 20 meq Documented by: Results - Results Labs/Vitals: Laboratory Last Values POC Glucose 115 mg/dL (70-105) H 07/03/21 22:31 Triglycerides 115 mg/dL (2-149) 07/04/21 05:33 Cholesterol 192 mg/dL (50-199) 07/04/21 05:33 LDL Cholesterol Direct 145 mg/dL (50-130) H 07/04/21 05:33 HDL Cholesterol 41 mg/dL (40-59) 07/04/21 05:33 Cholesterol/HDL Ratio 4.68 % 07/04/21 05:33 TSH 0.689 mlU/mL (0.270-4.200) 07/04/21 05:33 Hepatitis A IgM Ab Non-reactive (NonReactive) 07/04/21 05:33 Hep Bs Antigen Nonreactive (Negative) 07/04/21 05:33 Hep B Core IgM Ab Non-reactive (NonReactive) 07/04/21 05:33 Hepatitis C Antibody Non-reactive (NonReactive) 07/04/21 05:33 Last Vital Signs Temp 98.4 F 07/06/21 11:36 Pulse 89 07/06/21 11:47 Resp 18 07/06/21 11:36 BP 99/64 07/06/21 11:47 Pulse Ox 96 07/06/21 11:36
[2021-07-06] MEDS: EFAVIRENZ 200 MG CAP PO SCH (15:51)
[2021-07-06] MEDS: TENOFOVIR 300 MG TAB PO SCH (15:52)
[2021-07-06] MEDS: EMTRICITABINE 200 MG CAP PO SCH (15:52)
[2021-07-06] MEDS: diphenhydrAMINE 50 MG CAP PO SCH (21:41)
[2021-07-06] MEDS: PHENYTOIN 100 MG CAPSULE.ER PO SCH (22:22)
[2021-07-07] MEDS ORDERED: EFAVIRENZ 600 MG, TENOFOVIR 300 MG, EMTRICITABINE 200 MG PO SCH (06:00)
--- NOTE | 2021-07-07 08:47 | Progress Note ---
Subjective Date of service: 07/07/21 Subjective Comment: 07/05/2021: The patient was seen resting in bed. He continues to endorse commanding auditory hallucinations " voices telling me to kill myself." The admits having suicidal ideation with a plan to overdose on pills. He denies visual hallucinations and denies homicidal ideation. 07/06/2021: The patient was seen this morning, he reports not doing well. He continues to endorse commanding auditory hallucinations " voices telling me to kill myself." The admits having suicidal ideation with a plan to overdose on pills. He denies visual hallucinations and denies homicidal ideation. 07/07/2021: The patient was seen resting in bed, he reports not doing well. The patient reports Being " a lot of pain with my depression and Lupus." He continues to endorse commanding auditory hallucinations " voices telling me to kill myself." The admits having suicidal ideation with a plan to overdose on pills. He denies visual hallucinations and denies homicidal ideation. Start Effexor 37.5mg po daily REVIEW OF SYSTEMS Constitutional: Negative for weight loss ENT: Negative for stridor Respiratory: Negative for cough or hemoptysis All other systems reviewed and are negative MENTAL STATUS EXAMINATION General Appearance and Behavior: Age appropriate, good hygiene, wearing appropriate clothes, sleeping, cooperative Cooperation: Participating Psychomotor Behavior: unremarkable and within normal limits Mood: "hallucinating" Affect and affective range: congruent with mood Thought Process:hallucinating Thought Content: Suicidal Speech: Normal volume, Regular rate and rhythm, Suicidal Ideation: Yes Homicidal Ideation:Denies Hallucinations:Yes- auditory Delusions: None elicited Impulse Control: Questionable Insight and Judgment: Limited insight and poor judgment, Memory: Normal, Attention: Normal Orientation: Alert, oriented Assessment and Plan (1)Schizoaffective disorder, Bipolar type- F25.0 Current Visit: Yes Status: Acute Treatment Plan Patient admitted for inpatient psychiatric evaluation, medication adjustment and close monitoring The patient's behavior, mood, sleep and appetite will be closely monitored. Patient enrolled in individual and group therapeutic sessions and encouraged to attend. Patient provided with a safe and structured environment. Patient's physical health needs will be addressed by the Hospitalist. Hospitalist Consulted Labs including CBC, CMP, Lipid profile and Hemoglobin A1C levels ordered for b aseline reference Social Assessment will be completed and the [employer] Manager will work with patient and family to ensure a suitable and safe disposition Medication adjustment will be made as clinically indicated Continued Home medications Start Effexor 37.5mg po daily Usual Wellness Congregation/Preservation: - Start Trazodone 50 mg po QHS & 50 mg po QHS PRN between 10 PM & 2 AM for insomnia - Start Melatonin 5 mg po QHS to promote circadian rhythm The patient agreed on the treatment plan, understood the risk, benefit, alternative treatment, potential consequence of no treatment, and gave informed consent. Estimated days: 7 Post hospital care: primary care provider, psychiatric provider Case staffed with Dr. Coelho Reaction to Hospitalization: Accepting Medications and Allergies Medications and Allergies Allergies Allergy/AdvReac Type Severity Reaction Status Date / Time metoclopramide [From Reglan] Allergy Anaphylaxis Verified 09/27/20 13:41 prochlorperazine Allergy Anaphylaxis Verified 09/27/20 13:41 [From Compazine] promethazine [From Phenergan] Allergy Anaphylaxis Verified 09/27/20 13:41 rice Allergy Hives Verified 09/27/20 13:41 Home Medications Medication Instructions Recorded Confirmed Last Taken Type Albuterol Mdi (or & Nicu Only) 2 puff IH Q4H PRN 06/05/19 09/29/20 07/03/20 History [ProAir HFA Inhaler] Doxepin [SINEquan] 100 mg PO QHS 06/05/19 09/29/20 07/03/20 History Fluticasone/Salmeterol(Nf) [Advair 2 puff IH BID 06/05/19 09/29/20 07/03/20 History HFA 230-21 mcg] Furosemide [Lasix TAB] 40 mg PO QDAY 06/05/19 09/29/20 07/03/20 History 40 mg Ipratropium/Albuterol Sulfate 1 spray IH QID 06/05/19 09/29/20 07/03/20 History [Combivent Respimat] Mirtazapine [Remeron 15mg TAB] 15 mg PO QHS 06/05/19 09/29/20 07/03/20 16:00 History 15 mg Potassium Chloride [K-Dur] 20 meq PO QDAY 06/05/19 09/29/20 07/03/20 16:00 History 20 meq Nucynta 75 mg PO ONCE 04/13/20 09/29/20 07/03/20 16:00 History 75 mg Dicyclomine [Bentyl] 10 mg PO QID #30 capsule 04/14/20 09/29/20 07/03/20 Rx Metoprolol [Lopressor TAB] 100 mg PO BID #60 04/14/20 09/29/20 07/03/20 Rx 100 mg Phenytoin [Dilantin] 300 mg PO QHS #90 04/14/20 09/29/20 07/03/20 Rx 300 Triumeq 600-50-300 mg Tablet 600 mg PO DAILY 04/14/20 09/29/20 07/03/20 History 600-50-300 levETIRAcetam [Keppra TAB] 750 mg PO BID #90 tablet 04/14/20 09/29/20 07/03/20 Rx 750 Insulin NPH/Regular [NovoLIN 70/30] 20 unit SUB-Q QAM&QHS units 07/07/20 09/29/20 Unknown Rx Oxycodone HCl/Acetaminophen 1 each PO Q6HR PRN #10 07/07/20 09/29/20 Unknown Rx [Percocet 10/325 mg] Abacavir [Ziagen TAB] 600 mg PO DAILY tablet 07/12/20 09/29/20 Unknown Rx Acetaminophen [Acetaminophen TAB] 650 mg PO Q4H PRN tablet 07/12/20 09/29/20 Unknown Rx Arformoterol Nebu [Brovana Nebu] 15 mcg IH Q12HRT #1 ml 07/12/20 09/29/20 Unknown Rx Dolutegravir [Tivicay] 50 mg PO DAILY tablet 07/12/20 09/29/20 Unknown Rx AtorvaSTATin [Lipitor] 80 mg PO QHS #30 tablet 08/12/20 09/29/20 Unknown Rx Dexamethasone [Decadron] 6 mg PO DAILY #10 tablet 08/13/20 09/29/20 Unknown Rx diphenhydrAMINE [Benadryl CAP] 100 mg PO HS 09/29/20 09/29/20 Unknown History ARIPiprazole [Abilify TAB] 20 mg PO QDAY #60 tablet 10/04/20 Unknown Rx Aspirin 325 mg PO QDAY #30 tablet 10/04/20 Unknown Rx Budesonide [Pulmicort Respules] 0.5 mg IH Q12HRT #1 nebu 10/04/20 Unknown Rx Clopidogrel [Plavix] 75 mg PO DAILY #30 tablet 10/04/20 Unknown Rx Docusate Sodium [Colace CAP] 100 mg PO BID PRN #60 capsule 10/04/20 Unknown Rx Melatonin [Melatonin 5MG TAB] 5 mg PO QHS PRN #30 tablet 10/04/20 Unknown Rx Mirtazapine [Remeron 15mg TAB] 30 mg PO QHS #30 tablet 10/04/20 Unknown Rx QUEtiapine [SEROquel] 25 mg PO DAILY #30 tablet 10/04/20 Unknown Rx QUEtiapine [SEROquel] 100 mg PO QHS #30 tablet 10/04/20 Unknown Rx Sertraline [Zoloft] 50 mg PO QDAY #30 tablet 10/04/20 Unknown Rx busPIRone [Buspar] 10 mg PO BID #60 10/04/20 Unknown Rx Active Meds: Active Medications Aripiprazole (Aripiprazole 10 Mg Tab) 10 mg PO QDAY [facility] Last Admin: 07/06/21 11:26 Dose: 10 mg Documented by: Aspirin (Aspirin 325 Mg Tab) 325 mg PO QDAY [facility] Last Admin: 07/06/21 11:26 Dose: 325 mg Documented by: Atorvastatin Calcium (Atorvastatin 40 Mg Tab) 80 mg PO QHS [facility] Last Admin: 07/06/21 21:41 Dose: 80 mg Documented by: Buspirone HCl (Buspirone 10 Mg Tab) 10 mg PO BID [facility] Last Admin: 07/06/21 21:40 Dose: 10 mg Documented by: Clopidogrel Bisulfate (Clopidogrel 75 Mg Tab) 75 mg PO DAILY [facility] Last Admin: 07/06/21 11:27 Dose: 75 mg Documented by: Diphenhydramine HCl (Diphenhydramine 50 Mg Cap) 50 mg PO QHS [facility] Last Admin: 07/06/21 21:41 Dose: 50 mg Documented by: Efavirenz (Efavirenz 200 Mg Cap) 600 mg PO DAILY [facility] Last Admin: 07/06/21 15:51 Dose: 600 mg Documented by: Emtricitabine (Emtricitabine 200 Mg Cap) 200 mg PO DAILY [facility] Last Admin: 07/06/21 15:52 Dose: 200 mg Documented by: Furosemide (Furosemide 40 Mg Tab) 40 mg PO QDAY [facility] Last Admin: 07/06/21 11:26 Dose: 40 mg Documented by: Levetiracetam (Levetiracetam 500 Mg Tab) 750 mg PO BID [facility] Last Admin: 07/06/21 21:39 Dose: 750 mg Documented by: Melatonin (Melatonin 5 Mg Tab) 5 mg PO QHS PRN PRN Reason: Sleep Last Admin: 07/04/21 23:36 Dose: 5 mg Documented by: Metoprolol Tartrate (Metoprolol Tartrate 100 Mg Tab) 100 mg PO BID [facility] Last Admin: 07/06/21 22:24 Dose: Not Given Documented by: Phenytoin (Phenytoin 100 Mg Capsule.Er) 300 mg PO QHS [facility] Last Admin: 07/06/21 22:22 Dose: Not Given Documented by: Potassium Chloride (Potassium Chloride Er 20 Meq Tab) 20 meq PO QDAY [facility] Last Admin: 07/06/21 11:27 Dose: 20 meq Documented by: Tenofovir Disoproxil Fumarate (Tenofovir 300 Mg Tab) 300 mg PO DAILY [facility] Last Admin: 07/06/21 15:52 Dose: 300 mg Documented by: Results - Results Labs/Vitals: Laboratory Last Values POC Glucose 115 mg/dL (70-105) H 07/03/21 22:31 Triglycerides 115 mg/dL (2-149) 07/04/21 05:33 Cholesterol 192 mg/dL (50-199) 07/04/21 05:33 LDL Cholesterol Direct 145 mg/dL (50-130) H 07/04/21 05:33 HDL Cholesterol 41 mg/dL (40-59) 07/04/21 05:33 Cholesterol/HDL Ratio 4.68 % 07/04/21 05:33 TSH 0.689 mlU/mL (0.270-4.200) 07/04/21 05:33 Hepatitis A IgM Ab Non-reactive (NonReactive) 07/04/21 05:33 Hep Bs Antigen Nonreactive (Negative) 07/04/21 05:33 Hep B Core IgM Ab Non-reactive (NonReactive) 07/04/21 05:33 Hepatitis C Antibody Non-reactive (NonReactive) 07/04/21 05:33 Last Vital Signs Temp 98.9 F 07/06/21 22:00 Pulse 78 07/06/21 22:24 Resp 20 07/06/21 22:00 BP 101/69 07/06/21 22:24 Pulse Ox 95 07/06/21 22:00
[2021-07-07] MEDS: TENOFOVIR 300 MG TAB PO SCH (11:02)
[2021-07-07] MEDS: EFAVIRENZ 200 MG CAP PO SCH (11:02)
[2021-07-07] MEDS: EMTRICITABINE 200 MG CAP PO SCH (11:02)
[2021-07-07] MEDS: ASPIRIN 325 MG TAB PO SCH (11:03)
[2021-07-07] MEDS: levETIRAcetam 500 MG TAB PO SCH ×2 (11:03→22:15)
[2021-07-07] MEDS: ARIPiprazole 10 MG TAB PO SCH (11:03)
[2021-07-07] MEDS: POTASSIUM CHLORIDE ER 20 MEQ TAB PO SCH (11:03)
[2021-07-07] MEDS: VENLAFAXINE 37.5 MG TAB PO SCH (11:03)
[2021-07-07] MEDS: busPIRone 10 MG TAB PO SCH ×2 (11:04→22:15)
[2021-07-07] MEDS: FUROSEMIDE 40 MG TAB PO SCH (11:04)
[2021-07-07] MEDS: CLOPIDOGREL 75 MG TAB PO SCH (11:04)
[2021-07-07] MEDS: METOPROLOL TARTRATE 100 MG TAB PO SCH ×2 (11:05→22:16)
[2021-07-07] MEDS: diphenhydrAMINE 50 MG CAP PO SCH (22:15)
--- NOTE | 2021-07-08 10:30 | Progress Note ---
Subjective Date of service: 07/08/21 Principal diagnosis: schizoaffective disorder Subjective Comment: The patient was seen today. He says he's not doing too good. His complaints are vague. He says he's homeless and needs a place to go. He says voices are bothering him. He says he's suicidal and didn't sleep well. The patient denies having a plan. REVIEW OF SYSTEMS Constitutional: Negative for weight loss ENT: Negative for stridor Respiratory: Negative for cough or hemoptysis All other systems reviewed and are negative MENTAL STATUS EXAMINATION General Appearance and Behavior: Age appropriate, good hygiene, wearing appropriate clothes, sleeping, cooperative Cooperation: Participating Psychomotor Behavior: unremarkable and within normal limits Mood: "hallucinating" Affect and affective range: congruent with mood Thought Process:hallucinating Thought Content: Suicidal Speech: Normal volume, Regular rate and rhythm, Suicidal Ideation: Yes Homicidal Ideation:Denies Hallucinations: Yes- auditory Delusions: None elicited Impulse Control: Questionable Insight and Judgment: Limited insight and poor judgment, Memory: Normal, Attention: Normal Orientation: Alert, oriented Assessment and Plan (1)Schizoaffective disorder, Bipolar type- F25.0 Current Visit: Yes Status: Acute Treatment Plan Patient admitted for inpatient psychiatric evaluation, medication adjustment and close monitoring The patient's behavior, mood, sleep and appetite will be closely monitored. Patient enrolled in individual and group therapeutic sessions and encouraged to attend. Patient provided with a safe and structured environment. Patient's physical health needs will be addressed by the Hospitalist. Hospitalist Consulted Labs including CBC, CMP, Lipid profile and Hemoglobin A1C levels ordered for baseline reference Social Assessment will be completed and the Tactical Debriefer will work with patient and family to ensure a suitable and safe disposition Medication adjustment will be made as clinically indicated Increased Abilify 15mg po daily Usual Wellness L[employer] Day/Preservation: - Start Trazodone 50 mg po QHS & 50 mg po QHS PRN between 10 PM & 2 AM for insomnia - Start Melatonin 5 mg po QHS to promote circadian rhythm The patient agreed on the treatment plan, understood the risk, benefit, alt ernative treatment, potential consequence of no treatment, and gave informed consent. Estimated days: 7 Post hospital care: primary care provider, psychiatric provider Case staffed with Dr. Coelho Medications and Allergies Allergies Allergy/AdvReac Type Severity Reaction Status Date / Time metoclopramide [From Reglan] Allergy Anaphylaxis Verified 09/27/20 13:41 prochlorperazine Allergy Anaphylaxis Verified 09/27/20 13:41 [From Compazine] promethazine [From Phenergan] Allergy Anaphylaxis Verified 09/27/20 13:41 rice Allergy Hives Verified 09/27/20 13:41 Home Medications Medication Instructions Recorded Confirmed Last Taken Type Albuterol Mdi (or & Nicu Only) 2 puff IH Q4H PRN 06/05/19 09/29/20 07/03/20 History [ProAir HFA Inhaler] Doxepin [SINEquan] 100 mg PO QHS 06/05/19 09/29/20 07/03/20 History Fluticasone/Salmeterol(Nf) [Advair 2 puff IH BID 06/05/19 09/29/20 07/03/20 History HFA 230-21 mcg] Furosemide [Lasix TAB] 40 mg PO QDAY 06/05/19 09/29/20 07/03/20 History 40 mg Ipratropium/Albuterol Sulfate 1 spray IH QID 06/05/19 09/29/20 07/03/20 History [Combivent Respimat] Mirtazapine [Remeron 15mg TAB] 15 mg PO QHS 06/05/19 09/29/20 07/03/20 16:00 History 15 mg Potassium Chloride [K-Dur] 20 meq PO QDAY 06/05/19 09/29/20 07/03/20 16:00 History 20 meq Nucynta 75 mg PO ONCE 04/13/20 09/29/20 07/03/20 16:00 History 75 mg Dicyclomine [Bentyl] 10 mg PO QID #30 capsule 04/14/20 09/29/20 07/03/20 Rx Metoprolol [Lopressor TAB] 100 mg PO BID #60 04/14/20 09/29/20 07/03/20 Rx 100 mg Phenytoin [Dilantin] 300 mg PO QHS #90 04/14/20 09/29/20 07/03/20 Rx 300 Triumeq 600-50-300 mg Tablet 600 mg PO DAILY 04/14/20 09/29/20 07/03/20 History 600-50-300 levETIRAcetam [Keppra TAB] 750 mg PO BID #90 tablet 04/14/20 09/29/20 07/03/20 Rx 750 Insulin NPH/Regular [NovoLIN 70/30] 20 unit SUB-Q QAM&QHS units 07/07/20 09/29/20 Unknown Rx Oxycodone HCl/Acetaminophen 1 each PO Q6HR PRN #10 07/07/20 09/29/20 Unknown Rx [Percocet 10/325 mg] Abacavir [Ziagen TAB] 600 mg PO DAILY tablet 07/12/20 09/29/20 Unknown Rx Acetaminophen [Acetaminophen TAB] 650 mg PO Q4H PRN tablet 07/12/20 09/29/20 Unknown Rx Arformoterol Nebu [Brovana Nebu] 15 mcg IH Q12HRT #1 ml 07/12/20 09/29/20 Unknown Rx Dolutegravir [Tivicay] 50 mg PO DAILY tablet 07/12/20 09/29/20 Unknown Rx AtorvaSTATin [Lipitor] 80 mg PO QHS #30 tablet 08/12/20 09/29/20 Unknown Rx Dexamethasone [Decadron] 6 mg PO DAILY #10 tablet 08/13/20 09/29/20 Unknown Rx diphenhydrAMINE [Benadryl CAP] 100 mg PO HS 09/29/20 09/29/20 Unknown History ARIPiprazole [Abilify TAB] 20 mg PO QDAY #60 tablet 10/04/20 Unknown Rx Aspirin 325 mg PO QDAY #30 tablet 10/04/20 Unknown Rx Budesonide [Pulmicort Respules] 0.5 mg IH Q12HRT #1 nebu 10/04/20 Unknown Rx Clopidogrel [Plavix] 75 mg PO DAILY #30 tablet 10/04/20 Unknown Rx Docusate Sodium [Colace CAP] 100 mg PO BID PRN #60 capsule 10/04/20 Unknown Rx Melatonin [Melatonin 5MG TAB] 5 mg PO QHS PRN #30 tablet 10/04/20 Unknown Rx Mirtazapine [Remeron 15mg TAB] 30 mg PO QHS #30 tablet 10/04/20 Unknown Rx QUEtiapine [SEROquel] 25 mg PO DAILY #30 tablet 10/04/20 Unknown Rx QUEtiapine [SEROquel] 100 mg PO QHS #30 tablet 10/04/20 Unknown Rx Sertraline [Zoloft] 50 mg PO QDAY #30 tablet 10/04/20 Unknown Rx busPIRone [Buspar] 10 mg PO BID #60 10/04/20 Unknown Rx Active Meds: Active Medications Aripiprazole (Aripiprazole 10 Mg Tab) 10 mg PO QDAY [facility] Last Admin: 07/07/21 11:03 Dose: 10 mg Documented by: Aspirin (Aspirin 325 Mg Tab) 325 mg PO QDAY [facility] Last Admin: 07/07/21 11:03 Dose: 325 mg Documented by: Atorvastatin Calcium (Atorvastatin 40 Mg Tab) 80 mg PO QHS [facility] Last Admin: 07/07/21 22:15 Dose: 80 mg Documented by: Buspirone HCl (Buspirone 10 Mg Tab) 10 mg PO BID [facility] Last Admin: 07/07/21 22:15 Dose: 10 mg Documented by: Clopidogrel Bisulfate (Clopidogrel 75 Mg Tab) 75 mg PO DAILY [facility] Last Admin: 07/07/21 11:04 Dose: 75 mg Documented by: Diphenhydramine HCl (Diphenhydramine 50 Mg Cap) 50 mg PO QHS [facility] Last Admin: 07/07/21 22:15 Dose: 50 mg Documented by: Efavirenz (Efavirenz 200 Mg Cap) 600 mg PO DAILY [facility] Last Admin: 07/07/21 11:02 Dose: 600 mg Documented by: Emtricitabine (Emtricitabine 200 Mg Cap) 200 mg PO DAILY [facility] Last Admin: 07/07/21 11:02 Dose: 200 mg Documented by: Furosemide (Furosemide 40 Mg Tab) 40 mg PO QDAY [facility] Last Admin: 07/07/21 11:04 Dose: 40 mg Documented by: Levetiracetam (Levetiracetam 500 Mg Tab) 750 mg PO BID [facility] Last Admin: 07/07/21 22:15 Dose: 750 mg Documented by: Melatonin (Melatonin 5 Mg Tab) 5 mg PO QHS PRN PRN Reason: Sleep Last Admin: 07/04/21 23:36 Dose: 5 mg Documented by: Metoprolol Tartrate (Metoprolol Tartrate 100 Mg Tab) 100 mg PO BID [facility] Last Admin: 07/07/21 22:16 Dose: Not Given Documented by: Potassium Chloride (Potassium Chloride Er 20 Meq Tab) 20 meq PO QDAY [facility] Last Admin: 07/07/21 11:03 Dose: 20 meq Documented by: Tenofovir Disoproxil Fumarate (Tenofovir 300 Mg Tab) 300 mg PO DAILY [facility] Last Admin: 07/07/21 11:02 Dose: 300 mg Documented by: Venlafaxine HCl (Venlafaxine 37.5 Mg Tab) 37.5 mg PO DAILY [facility] Last Admin: 07/07/21 11:03 Dose: 37.5 mg Documented by: Results - Results Labs/Vitals: Laboratory Last Values POC Glucose 115 mg/dL (70-105) H 07/03/21 22:31 Triglycerides 115 mg/dL (2-149) 07/04/21 05:33 Cholesterol 192 mg/dL (50-199) 07/04/21 05:33 LDL Cholesterol Direct 145 mg/dL (50-130) H 07/04/21 05:33 HDL Cholesterol 41 mg/dL (40-59) 07/04/21 05:33 Cholesterol/HDL Ratio 4.68 % 07/04/21 05:33 TSH 0.689 mlU/mL (0.270-4.200) 07/04/21 05:33 Hepatitis A IgM Ab Non-reactive (NonReactive) 07/04/21 05:33 Hep Bs Antigen Nonreactive (Negative) 07/04/21 05:33 Hep B Core IgM Ab Non-reactive (NonReactive) 07/04/21 05:33 Hepatitis C Antibody Non-reactive (NonReactive) 07/04/21 05:33 Last Vital Signs Temp 98.4 F 07/07/21 19:54 Pulse 91 H 07/07/21 22:16 Resp 18 07/07/21 19:54 BP 110/73 07/07/21 22:16 Pulse Ox 95 07/08/21 03:00
[2021-07-08] MEDS: ASPIRIN 325 MG TAB PO SCH (10:31)
[2021-07-08] MEDS: busPIRone 10 MG TAB PO SCH ×2 (10:32→22:17)
[2021-07-08] MEDS: VENLAFAXINE 37.5 MG TAB PO SCH (10:32)
[2021-07-08] MEDS: EMTRICITABINE 200 MG CAP PO SCH (10:33)
[2021-07-08] MEDS: POTASSIUM CHLORIDE ER 20 MEQ TAB PO SCH (10:33)
[2021-07-08] MEDS: levETIRAcetam 500 MG TAB PO SCH ×2 (10:34→22:18)
[2021-07-08] MEDS: FUROSEMIDE 40 MG TAB PO SCH (10:34)
[2021-07-08] MEDS: CLOPIDOGREL 75 MG TAB PO SCH (10:36)
[2021-07-08] MEDS: METOPROLOL TARTRATE 100 MG TAB PO SCH ×2 (10:36→22:21)
[2021-07-08] MEDS: EFAVIRENZ 200 MG CAP PO SCH (10:37)
[2021-07-08] MEDS: TENOFOVIR 300 MG TAB PO SCH (10:38)
[2021-07-08] MEDS: ARIPiprazole 10 MG TAB PO SCH (11:57)
[2021-07-08] MEDS: ARIPiprazole 15 MG TAB PO SCH ×2 (12:03→12:08)
[2021-07-08] MEDS: diphenhydrAMINE 50 MG CAP PO SCH (22:17)
[2021-07-09] MEDS: ASPIRIN 325 MG TAB PO SCH (12:41)
[2021-07-09] MEDS: CLOPIDOGREL 75 MG TAB PO SCH (12:42)
[2021-07-09] MEDS: EMTRICITABINE 200 MG CAP PO SCH (12:42)
[2021-07-09] MEDS: busPIRone 10 MG TAB PO SCH ×2 (12:42→21:57)
[2021-07-09] MEDS: TENOFOVIR 300 MG TAB PO SCH (12:43)
[2021-07-09] MEDS: EFAVIRENZ 200 MG CAP PO SCH (12:43)
[2021-07-09] MEDS: levETIRAcetam 500 MG TAB PO SCH ×2 (12:44→21:59)
[2021-07-09] MEDS: POTASSIUM CHLORIDE ER 20 MEQ TAB PO SCH (12:44)
[2021-07-09] MEDS: VENLAFAXINE 37.5 MG TAB PO SCH (12:46)
[2021-07-09] MEDS: FUROSEMIDE 40 MG TAB PO SCH (12:47)
[2021-07-09] MEDS: METOPROLOL TARTRATE 100 MG TAB PO SCH ×2 (12:47→21:58)
[2021-07-09] MEDS: ARIPiprazole 15 MG TAB PO SCH (12:59)
[2021-07-09] MEDS: diphenhydrAMINE 50 MG CAP PO SCH (21:56)
[2021-07-10] MEDS: levETIRAcetam 500 MG TAB PO SCH ×3 (10:13→23:54)
[2021-07-10] MEDS: VENLAFAXINE 37.5 MG TAB PO SCH (10:14)
[2021-07-10] MEDS: EMTRICITABINE 200 MG CAP PO SCH (10:14)
[2021-07-10] MEDS: busPIRone 10 MG TAB PO SCH ×3 (10:14→23:53)
[2021-07-10] MEDS: ASPIRIN 325 MG TAB PO SCH (10:14)
[2021-07-10] MEDS: POTASSIUM CHLORIDE ER 20 MEQ TAB PO SCH (10:14)
[2021-07-10] MEDS: ARIPiprazole 15 MG TAB PO SCH (10:14)
[2021-07-10] MEDS: CLOPIDOGREL 75 MG TAB PO SCH (10:14)
[2021-07-10] MEDS: TENOFOVIR 300 MG TAB PO SCH (10:15)
[2021-07-10] MEDS: EFAVIRENZ 200 MG CAP PO SCH (10:15)
[2021-07-10] MEDS: METOPROLOL TARTRATE 100 MG TAB PO SCH ×2 (10:16→22:41)
--- NOTE | 2021-07-10 10:18 | Progress Note ---
Subjective Date of service: 07/10/21 Principal diagnosis: schizoaffective disorder Subjective Comment: The patient was seen today. He says he's doing fine. The patient says "I don't have nowhere to go and that makes me suicidal." He says the people won't answer the phone where he was living. He denies hallucinations of any kind. REVIEW OF SYSTEMS Constitutional: Negative for weight loss ENT: Negative for stridor Respiratory: Negative for cough or hemoptysis All other systems reviewed and are negative MENTAL STATUS EXAMINATION General Appearance and Behavior: Age appropriate, good hygiene, wearing appropriate clothes, sleeping, cooperative Cooperation: Participating Psychomotor Behavior: unremarkable and within normal limits Mood: "hallucinating" Affect and affective range: congruent with mood Thought Process:hallucinating Thought Content: Suicidal Speech: Normal volume, Regular rate and rhythm, Suicidal Ideation: Yes Homicidal Ideation:Denies Hallucinations: Yes- auditory Delusions: None elicited Impulse Control: Questionable Insight and Judgment: Limited insight and poor judgment, Memory: Normal, Attention: Normal Orientation: Alert, oriented Assessment and Plan (1)Schizoaffective disorder, Bipolar type- F25.0 Current Visit: Yes Status: Acute Treatment Plan Patient admitted for inpatient psychiatric evaluation, medication adjustment and close monitoring The patient's behavior, mood, sleep and appetite will be closely monitored. Patient enrolled in individual and group therapeutic sessions and encouraged to attend. Patient provided with a safe and structured environment. Patient's physical health needs will be addressed by the Hospitalist. Hospitalist Consulted Labs including CBC, CMP, Lipid profile and Hemoglobin A1C levels ordered for baseline reference Social Assessment will be completed and the Medical Record Transcriber will work with patient and family to ensure a suitable and safe disposition Medication adjustment will be made as clinically indicated Increased Abilify 15mg po daily yesterday No changes made today Usual Wellness Yazidi/Preservation: - Start Trazodone 50 mg po QHS & 50 mg po QHS PRN between 10 PM & 2 AM for insomnia - Start Melatonin 5 mg po QHS to promote circadian rhythm The patient agreed on the treatment plan, understood the risk, benefit, alternative treatment, potential consequence of no treatment, and gave informed consent. Estimated days: 6 Post hospital care: primary care provider, psychiatric provider Case staffed with Dr. Coelho Medications and Allergies Allergies Allergy/AdvReac Type Severity Reaction Status Date / Time metoclopramide [From Reglan] Allergy Anaphylaxis Verified 09/27/20 13:41 prochlorperazine Allergy Anaphylaxis Verified 09/27/20 13:41 [From Compazine] promethazine [From Phenergan] Allergy Anaphylaxis Verified 09/27/20 13:41 rice Allergy Hives Verified 09/27/20 13:41 Home Medications Medication Instructions Recorded Confirmed Last Taken Type Albuterol Mdi (or & Nicu Only) 2 puff IH Q4H PRN 06/05/19 07/10/21 07/03/20 History [ProAir HFA Inhaler] Doxepin [SINEquan] 100 mg PO QHS 06/05/19 07/10/21 07/03/20 History Fluticasone/Salmeterol(Nf) [Advair 2 puff IH BID 06/05/19 07/10/21 07/03/20 History HFA 230-21 mcg] Furosemide [Lasix TAB] 40 mg PO QDAY 06/05/19 07/10/21 07/03/20 History 40 mg Ipratropium/Albuterol Sulfate 1 spray IH QID 06/05/19 07/10/21 07/03/20 History [Combivent Respimat] Mirtazapine [Remeron 15mg TAB] 15 mg PO QHS 06/05/19 07/10/21 07/03/20 16:00 History 15 mg Potassium Chloride [K-Dur] 20 meq PO QDAY 06/05/19 07/10/21 07/03/20 16:00 History 20 meq Nucynta 75 mg PO ONCE 04/13/20 07/10/21 07/03/20 16:00 History 75 mg Dicyclomine [Bentyl] 10 mg PO QID #30 capsule 04/14/20 07/10/21 07/03/20 Rx Metoprolol [Lopressor TAB] 100 mg PO BID #60 04/14/20 07/10/21 07/03/20 Rx 100 mg Phenytoin [Dilantin] 300 mg PO QHS #90 04/14/20 07/10/21 07/03/20 Rx 300 Triumeq 600-50-300 mg Tablet 600 mg PO DAILY 04/14/20 07/10/21 07/03/20 History 600-50-300 levETIRAcetam [Keppra TAB] 750 mg PO BID #90 tablet 04/14/20 07/10/21 07/03/20 Rx 750 Insulin NPH/Regular [NovoLIN 70/30] 20 unit SUB-Q QAM&QHS units 07/07/20 07/10/21 Unknown Rx Oxycodone HCl/Acetaminophen 1 each PO Q6HR PRN #10 07/07/20 07/10/21 Unknown Rx [Percocet 10/325 mg] Abacavir [Ziagen TAB] 600 mg PO DAILY tablet 07/12/20 07/10/21 Unknown Rx Acetaminophen [Acetaminophen TAB] 650 mg PO Q4H PRN tablet 07/12/20 07/10/21 Unknown Rx Arformoterol Nebu [Brovana Nebu] 15 mcg IH Q12HRT #1 ml 07/12/20 07/10/21 Unknown Rx Dolutegravir [Tivicay] 50 mg PO DAILY tablet 07/12/20 07/10/21 Unknown Rx AtorvaSTATin [Lipitor] 80 mg PO QHS #30 tablet 08/12/20 07/10/21 Unknown Rx Dexamethasone [Decadron] 6 mg PO DAILY #10 tablet 08/13/20 07/10/21 Unknown Rx diphenhydrAMINE [Benadryl CAP] 100 mg PO HS 09/29/20 07/10/21 Unknown History ARIPiprazole [Abilify TAB] 20 mg PO QDAY #60 tablet 10/04/20 07/10/21 Unknown Rx Aspirin 325 mg PO QDAY #30 tablet 10/04/20 07/10/21 Unknown Rx Budesonide [Pulmicort Respules] 0.5 mg IH Q12HRT #1 nebu 10/04/20 07/10/21 Unknown Rx Clopidogrel [Plavix] 75 mg PO DAILY #30 tablet 10/04/20 07/10/21 Unknown Rx Docusate Sodium [Colace CAP] 100 mg PO BID PRN #60 capsule 10/04/20 07/10/21 Unknown Rx Melatonin [Melatonin 5MG TAB] 5 mg PO QHS PRN #30 tablet 10/04/20 07/10/21 Unknown Rx Mirtazapine [Remeron 15mg TAB] 30 mg PO QHS #30 tablet 10/04/20 07/10/21 Unknown Rx QUEtiapine [SEROquel] 25 mg PO DAILY #30 tablet 10/04/20 07/10/21 Unknown Rx QUEtiapine [SEROquel] 100 mg PO QHS #30 tablet 10/04/20 07/10/21 Unknown Rx Sertraline [Zoloft] 50 mg PO QDAY #30 tablet 10/04/20 07/10/21 Unknown Rx busPIRone [Buspar] 10 mg PO BID #60 10/04/20 07/10/21 Unknown Rx Active Meds: Active Medications Aripiprazole (Aripiprazole 15 Mg Tab) 15 mg PO QDAY [facility] Last Admin: 07/09/21 12:59 Dose: 15 mg Documented by: Aspirin (Aspirin 325 Mg Tab) 325 mg PO QDAY [facility] Last Admin: 07/09/21 12:41 Dose: 325 mg Documented by: Atorvastatin Calcium (Atorvastatin 40 Mg Tab) 80 mg PO QHS [facility] Last Admin: 07/09/21 21:57 Dose: 80 mg Documented by: Buspirone HCl (Buspirone 10 Mg Tab) 10 mg PO BID [facility] Last Admin: 07/09/21 21:57 Dose: 10 mg Documented by: Clopidogrel Bisulfate (Clopidogrel 75 Mg Tab) 75 mg PO DAILY [facility] Last Admin: 07/09/21 12:42 Dose: 75 mg Documented by: Diphenhydramine HCl (Diphenhydramine 50 Mg Cap) 50 mg PO QHS [facility] Last Admin: 07/09/21 21:56 Dose: 50 mg Documented by: Efavirenz (Efavirenz 200 Mg Cap) 600 mg PO DAILY [facility] Last Admin: 07/09/21 12:43 Dose: 600 mg Documented by: Emtricitabine (Emtricitabine 200 Mg Cap) 200 mg PO DAILY [facility] Last Admin: 07/09/21 12:42 Dose: 200 mg Documented by: Furosemide (Furosemide 40 Mg Tab) 40 mg PO QDAY [facility] Last Admin: 07/09/21 12:47 Dose: Not Given Documented by: Levetiracetam (Levetiracetam 500 Mg Tab) 750 mg PO BID [facility] Last Admin: 07/09/21 21:59 Dose: 750 mg Documented by: Melatonin (Melatonin 5 Mg Tab) 5 mg PO QHS PRN PRN Reason: Sleep Last Admin: 07/04/21 23:36 Dose: 5 mg Documented by: Metoprolol Tartrate (Metoprolol Tartrate 100 Mg Tab) 100 mg PO BID [facility] Last Admin: 07/09/21 21:58 Dose: 100 mg Documented by: Potassium Chloride (Potassium Chloride Er 20 Meq Tab) 20 meq PO QDAY [facility] Last Admin: 07/09/21 12:44 Dose: 20 meq Documented by: Tenofovir Disoproxil Fumarate (Tenofovir 300 Mg Tab) 300 mg PO DAILY [facility] Last Admin: 07/09/21 12:43 Dose: 300 mg Documented by: Venlafaxine HCl (Venlafaxine 37.5 Mg Tab) 37.5 mg PO DAILY [facility] Last Admin: 07/09/21 12:46 Dose: 37.5 mg Documented by: Results - Results Labs/Vitals: Laboratory Last Values POC Glucose 105 mg/dL (70-105) 07/09/21 20:06 Triglycerides 115 mg/dL (2-149) 07/04/21 05:33 Cholesterol 192 mg/dL (50-199) 07/04/21 05:33 LDL Cholesterol Direct 145 mg/dL (50-130) H 07/04/21 05:33 HDL Cholesterol 41 mg/dL (40-59) 07/04/21 05:33 Cholesterol/HDL Ratio 4.68 % 07/04/21 05:33 TSH 0.689 mlU/mL (0.270-4.200) 07/04/21 05:33 Hepatitis A IgM Ab Non-reactive (NonReactive) 07/04/21 05:33 Hep Bs Antigen Nonreactive (Negative) 07/04/21 05:33 Hep B Core IgM Ab Non-reactive (NonReactive) 07/04/21 05:33 Hepatitis C Antibody Non-reactive (NonReactive) 07/04/21 05:33 Last Vital Signs Temp 97.6 F 07/10/21 07:30 Pulse 56 L 07/10/21 07:30 Resp 16 07/10/21 07:30 BP 77/39 07/10/21 07:30 Pulse Ox 95 07/10/21 07:30
[2021-07-10] MEDS: FUROSEMIDE 40 MG TAB PO SCH (10:21)
[2021-07-10] MEDS: diphenhydrAMINE 50 MG CAP PO SCH ×2 (22:40→23:55)
--- NOTE | 2021-07-11 09:10 | Discharge Summary ---
Providers - Providers Date of Admission: 07/03/21 20:59 Date of discharge: 07/11/21 Attending physician: DEVIN DYER MD 07/03/21 20:58 Consult to Physician [CONS] Routine Comment: Consulting Provider: DUSTIN OSWALD Physician Instructions: Reason For Exam: manage existing medical issues Primary care physician: RN REHAB Hospitalization Reason for admission: SI Admitting Diagnosis: F25.9 - SCHIZOAFFECTIVE DISORDER, UNSPECIFIED Condition: Stable Hospital course: The patient was provided inpatient psychiatric treatment with safe and supportive care, medication adjustment, adverse effect monitoring, medical evaluations, medical treatments, assessment and psycho-education. The patient's mood, cognition, behavior, moral support are improved and stabilized. St the time of discharge, the patient had no endangering behavior and no debilitating adverse effects. The patient agreed on potential consequences of no treatment and gave informed consent. 07/05/2021: The patient was seen resting in bed. He continues to endorse commanding auditory hallucinations " voices telling me to kill myself." The admits having suicidal ideation with a plan to overdose on pills. He denies visual hallucinations and denies homicidal ideation. 07/06/2021: The patient was seen this morning, he reports not doing well. He continues to endorse commanding auditory hallucinations " voices telling me to kill myself." The admits having suicidal ideation with a plan to overdose on pills. He denies visual hallucinations and denies homicidal ideation. 07/07/2021: The patient was seen resting in bed, he reports not doing well. The patient reports Being " a lot of pain with my depression and Lupus." He continues to endorse commanding auditory hallucinations " voices telling me to kill myself." The admits having suicidal ideation with a plan to overdose on pills. He denies visual hallucinations and denies homicidal ideation. Start Effexor 37.5mg po daily 07/08 The patient was seen today. He says he's not doing too good. His complaints are vague. He says he's homeless and needs a place to go. He says voices are bothering him. He says he's suicidal and didn't sleep well. The patient denies having a plan. 07/09 The patient was seen today. He says he's doing fine. The patient says he is suicidal because he has nowhere to go. He denies hallucinations 07/10 The patient was seen today. He says he's doing fine. The patient says "I don't have nowhere to go and that makes me suicidal." He says the people won't answer the phone where he was living. He denies hallucinations of any kind. 07/11 The patient was seen today. He states that he's doing alright. He says he didn't sleep well last night. When asking about SI, he says "not so much, I feel a lot better." He denies hallucinations. Disposition: HOME / SELF CARE / HOMELESS Time spent for discharge: 35 Allergies/Adverse Reactions: Allergies metoclopramide [From Reglan] Allergy (Verified 09/27/20 13:41) Anaphylaxis prochlorperazine [From Compazine] Allergy (Verified 09/27/20 13:41) Anaphylaxis promethazine [From Phenergan] Allergy (Verified 09/27/20 13:41) Anaphylaxis rice Allergy (Verified 09/27/20 13:41) Hives Vital Signs: Last Vital Signs Temp 97.5 F L 07/10/21 19:55 Pulse 50 L 07/10/21 22:41 Resp 18 07/10/21 19:55 BP 103/61 07/10/21 22:41 Pulse Ox 96 07/10/21 19:55 Last Lab: Laboratory Last Values POC Glucose 105 mg/dL (70-105) 07/09/21 20:06 Triglycerides 115 mg/dL (2-149) 07/04/21 05:33 Cholesterol 192 mg/dL (50-199) 07/04/21 05:33 LDL Cholesterol Direct 145 mg/dL (50-130) H 07/04/21 05:33 HDL Cholesterol 41 mg/dL (40-59) 07/04/21 05:33 Cholesterol/HDL Ratio 4.68 % 07/04/21 05:33 TSH 0.689 mlU/mL (0.270-4.200) 07/04/21 05:33 Hepatitis A IgM Ab Non-reactive (NonReactive) 07/04/21 05:33 Hep Bs Antigen Nonreactive (Negative) 07/04/21 05:33 Hep B Core IgM Ab Non-reactive (NonReactive) 07/04/21 05:33 Hepatitis C Antibody Non-reactive (NonReactive) 07/04/21 05:33 Core Measure Documentation - Palliative Care Palliative Care/ Comfort Measures: Not Applicable - Core Measures Any of the following diagnoses?: none Exam - Constitutional Vitals: Temp Pulse Resp BP Pulse Ox 97.5 F L 50 L 18 103/61 96 07/10/21 19:55 07/10/21 22:41 07/10/21 19:55 07/10/21 22:41 07/10/21 19:55 General appearance: Present: no acute distress - EENT Eyes: Present: PERRL, EOM intact ENT: hearing intact, clear oral mucosa - Neck Neck: Present: supple, normal ROM - Respiratory Respiratory effort: normal Plan Activity: advance as tolerated Weight Bearing Status: Weight Bear as Tolerated Follow up with: PRIMARY CAREMD [Primary Care Provider] - 7 Days
--- NOTE | 2021-07-11 09:13 | Progress Note ---
Subjective Date of service: 07/09/21 Principal diagnosis: schizoaffective disorder Subjective Comment: The patient was seen today. He says he's doing fine. The patient says he is suicidal because he has nowhere to go. He denies hallucinations REVIEW OF SYSTEMS Constitutional: Negative for weight loss ENT: Negative for stridor Respiratory: Negative for cough or hemoptysis All other systems reviewed and are negative MENTAL STATUS EXAMINATION General Appearance and Behavior: Age appropriate, good hygiene, wearing appropriate clothes, sleeping, cooperative Cooperation: Participating Psychomotor Behavior: unremarkable and within normal limits Mood: "not good" Affect and affective range: congruent with mood Thought Process:hallucinating Thought Content: Suicidal Speech: Normal volume, Regular rate and rhythm, Suicidal Ideation: Yes Homicidal Ideation:Denies Hallucinations: Denies Delusions: None elicited Impulse Control: Questionable Insight and Judgment: Limited insight and poor judgment, Memory: Normal, Attention: Normal Orientation: Alert, oriented Assessment and Plan (1)Schizoaffective disorder, Bipolar type- F25.0 Current Visit: Yes Status: Acute Treatment Plan Patient admitted for inpatient psychiatric evaluation, medication adjustment and close monitoring The patient's behavior, mood, sleep and appetite will be closely monitored. Patient enrolled in individual and group therapeutic sessions and encouraged to attend. Patient provided with a safe and structured environment. Patient's physical health needs will be addressed by the Hospitalist. Hospitalist Consulted Labs including CBC, CMP, Lipid profile and Hemoglobin A1C levels ordered for baseline reference Social Assessment will be completed and the Rest Room Attendant will work with patient and family to ensure a suitable and safe disposition Medication adjustment will be made as clinically indicated Usual Wellness Episcopal/Preservation: - Start Trazodone 50 mg po QHS & 50 mg po QHS PRN between 10 PM & 2 AM for insomnia - Start Melatonin 5 mg po QHS to promote circadian rhythm The patient agreed on the treatment plan, understood the risk, benefit, alternative treatment, potential consequence of no treatment, and gave informed consent. Estimated days: 6 Post hospital care: primary care provider, psychiatric provider Case staffed with Dr. Coelho Medications and Allergies Allergies Allergy/AdvReac Type Severity Reaction Status Date / Time metoclopramide [From Reglan] Allergy Anaphylaxis Verified 09/27/20 13:41 prochlorperazine Allergy Anaphylaxis Verified 09/27/20 13:41 [From Compazine] promethazine [From Phenergan] Allergy Anaphylaxis Verified 09/27/20 13:41 rice Allergy Hives Verified 09/27/20 13:41 Home Medications Medication Instructions Recorded Confirmed Last Taken Type Albuterol Mdi (or & Nicu Only) 2 puff IH Q4H PRN 06/05/19 07/10/21 07/03/20 History [ProAir HFA Inhaler] Doxepin [SINEquan] 100 mg PO QHS 06/05/19 07/10/21 07/03/20 History Fluticasone/Salmeterol(Nf) [Advair 2 puff IH BID 06/05/19 07/10/21 07/03/20 History HFA 230-21 mcg] Furosemide [Lasix TAB] 40 mg PO QDAY 06/05/19 07/10/21 07/03/20 History 40 mg Ipratropium/Albuterol Sulfate 1 spray IH QID 06/05/19 07/10/21 07/03/20 History [Combivent Respimat] Mirtazapine [Remeron 15mg TAB] 15 mg PO QHS 06/05/19 07/10/21 07/03/20 16:00 History 15 mg Potassium Chloride [K-Dur] 20 meq PO QDAY 06/05/19 07/10/21 07/03/20 16:00 History 20 meq Nucynta 75 mg PO ONCE 04/13/20 07/10/21 07/03/20 16:00 History 75 mg Dicyclomine [Bentyl] 10 mg PO QID #30 capsule 04/14/20 07/10/21 07/03/20 Rx Metoprolol [Lopressor TAB] 100 mg PO BID #60 04/14/20 07/10/21 07/03/20 Rx 100 mg Phenytoin [Dilantin] 300 mg PO QHS #90 04/14/20 07/10/21 07/03/20 Rx 300 Triumeq 600-50-300 mg Tablet 600 mg PO DAILY 04/14/20 07/10/21 07/03/20 History 600-50-300 levETIRAcetam [Keppra TAB] 750 mg PO BID #90 tablet 04/14/20 07/10/21 07/03/20 Rx 750 Insulin NPH/Regular [NovoLIN 70/30] 20 unit SUB-Q QAM&QHS units 07/07/20 07/10/21 Unknown Rx Oxycodone HCl/Acetaminophen 1 each PO Q6HR PRN #10 07/07/20 07/10/21 Unknown Rx [Percocet 10/325 mg] Abacavir [Ziagen TAB] 600 mg PO DAILY tablet 07/12/20 07/10/21 Unknown Rx Acetaminophen [Acetaminophen TAB] 650 mg PO Q4H PRN tablet 07/12/20 07/10/21 Unknown Rx Arformoterol Nebu [Brovana Nebu] 15 mcg IH Q12HRT #1 ml 07/12/20 07/10/21 Unknown Rx Dolutegravir [Tivicay] 50 mg PO DAILY tablet 07/12/20 07/10/21 Unknown Rx AtorvaSTATin [Lipitor] 80 mg PO QHS #30 tablet 08/12/20 07/10/21 Unknown Rx Dexamethasone [Decadron] 6 mg PO DAILY #10 tablet 08/13/20 07/10/21 Unknown Rx diphenhydrAMINE [Benadryl CAP] 100 mg PO HS 09/29/20 07/10/21 Unknown History ARIPiprazole [Abilify TAB] 20 mg PO QDAY #60 tablet 10/04/20 07/10/21 Unknown Rx Aspirin 325 mg PO QDAY #30 tablet 10/04/20 07/10/21 Unknown Rx Budesonide [Pulmicort Respules] 0.5 mg IH Q12HRT #1 nebu 10/04/20 07/10/21 Unknown Rx Clopidogrel [Plavix] 75 mg PO DAILY #30 tablet 10/04/20 07/10/21 Unknown Rx Docusate Sodium [Colace CAP] 100 mg PO BID PRN #60 capsule 10/04/20 07/10/21 Unknown Rx Melatonin [Melatonin 5MG TAB] 5 mg PO QHS PRN #30 tablet 10/04/20 07/10/21 Unknown Rx Mirtazapine [Remeron 15mg TAB] 30 mg PO QHS #30 tablet 10/04/20 07/10/21 Unknown Rx QUEtiapine [SEROquel] 25 mg PO DAILY #30 tablet 10/04/20 07/10/21 Unknown Rx QUEtiapine [SEROquel] 100 mg PO QHS #30 tablet 10/04/20 07/10/21 Unknown Rx Sertraline [Zoloft] 50 mg PO QDAY #30 tablet 10/04/20 07/10/21 Unknown Rx busPIRone [Buspar] 10 mg PO BID #60 10/04/20 07/10/21 Unknown Rx Active Meds: Active Medications Aripiprazole (Aripiprazole 15 Mg Tab) 15 mg PO QDAY [facility] Last Admin: 07/10/21 10:14 Dose: 15 mg Documented by: Aspirin (Aspirin 325 Mg Tab) 325 mg PO QDAY [facility] Last Admin: 07/10/21 10:14 Dose: 325 mg Documented by: Atorvastatin Calcium (Atorvastatin 40 Mg Tab) 80 mg PO QHS [facility] Last Admin: 07/10/21 23:55 Dose: Not Given Documented by: Buspirone HCl (Buspirone 10 Mg Tab) 10 mg PO BID [facility] Last Admin: 07/10/21 23:53 Dose: Not Given Documented by: Clopidogrel Bisulfate (Clopidogrel 75 Mg Tab) 75 mg PO DAILY [facility] Last Admin: 07/10/21 10:14 Dose: 75 mg Documented by: Diphenhydramine HCl (Diphenhydramine 50 Mg Cap) 50 mg PO QHS [facility] Last Admin: 07/10/21 23:55 Dose: Not Given Documented by: Efavirenz (Efavirenz 200 Mg Cap) 600 mg PO DAILY [facility] Last Admin: 07/10/21 10:15 Dose: 600 mg Documented by: Emtricitabine (Emtricitabine 200 Mg Cap) 200 mg PO DAILY [facility] Last Admin: 07/10/21 10:14 Dose: 200 mg Documented by: Furosemide (Furosemide 40 Mg Tab) 40 mg PO QDAY [facility] Last Admin: 07/10/21 10:21 Dose: Not Given Documented by: Levetiracetam (Levetiracetam 500 Mg Tab) 750 mg PO BID [facility] Last Admin: 07/10/21 23:54 Dose: Not Given Documented by: Melatonin (Melatonin 5 Mg Tab) 5 mg PO QHS PRN PRN Reason: Sleep Last Admin: 07/04/21 23:36 Dose: 5 mg Documented by: Metoprolol Tartrate (Metoprolol Tartrate 100 Mg Tab) 100 mg PO BID [facility] Last Admin: 07/10/21 22:41 Dose: Not Given Documented by: Potassium Chloride (Potassium Chloride Er 20 Meq Tab) 20 meq PO QDAY [facility] Last Admin: 07/10/21 10:14 Dose: 20 meq Documented by: Tenofovir Disoproxil Fumarate (Tenofovir 300 Mg Tab) 300 mg PO DAILY [facility] Last Admin: 07/10/21 10:15 Dose: 300 mg Documented by: Venlafaxine HCl (Venlafaxine 37.5 Mg Tab) 37.5 mg PO DAILY [facility] Last Admin: 07/10/21 10:14 Dose: 37.5 mg Documented by: Results - Results Labs/Vitals: Laboratory Last Values POC Glucose 105 mg/dL (70-105) 07/09/21 20:06 Triglycerides 115 mg/dL (2-149) 07/04/21 05:33 Cholesterol 192 mg/dL (50-199) 07/04/21 05:33 LDL Cholesterol Direct 145 mg/dL (50-130) H 07/04/21 05:33 HDL Cholesterol 41 mg/dL (40-59) 07/04/21 05:33 Cholesterol/HDL Ratio 4.68 % 07/04/21 05:33 TSH 0.689 mlU/mL (0.270-4.200) 07/04/21 05:33 Hepatitis A IgM Ab Non-reactive (NonReactive) 07/04/21 05:33 Hep Bs Antigen Nonreactive (Negative) 07/04/21 05:33 Hep B Core IgM Ab Non-reactive (NonReactive) 07/04/21 05:33 Hepatitis C Antibody Non-reactive (NonReactive) 07/04/21 05:33 Last Vital Signs Temp 97.5 F L 07/10/21 19:55 Pulse 50 L 07/10/21 22:41 Resp 18 07/10/21 19:55 BP 103/61 07/10/21 22:41 Pulse Ox 96 07/10/21 19:55
[2021-07-11] MEDS: POTASSIUM CHLORIDE ER 20 MEQ TAB PO SCH (13:59)
[2021-07-11] MEDS: busPIRone 10 MG TAB PO SCH ×2 (13:59→22:38)
[2021-07-11] MEDS: VENLAFAXINE 37.5 MG TAB PO SCH (13:59)
[2021-07-11] MEDS: ARIPiprazole 15 MG TAB PO SCH (13:59)
[2021-07-11] MEDS: FUROSEMIDE 40 MG TAB PO SCH (13:59)
[2021-07-11] MEDS: ASPIRIN 325 MG TAB PO SCH (13:59)
[2021-07-11] MEDS: levETIRAcetam 500 MG TAB PO SCH ×2 (13:59→22:38)
[2021-07-11] MEDS: EMTRICITABINE 200 MG CAP PO SCH (13:59)
[2021-07-11] MEDS: CLOPIDOGREL 75 MG TAB PO SCH (14:00)
[2021-07-11] MEDS: METOPROLOL TARTRATE 100 MG TAB PO SCH ×2 (14:00→22:38)
[2021-07-11] MEDS: TENOFOVIR 300 MG TAB PO SCH (14:00)
[2021-07-11] MEDS: EFAVIRENZ 200 MG CAP PO SCH (14:00)
[2021-07-11] MEDS: diphenhydrAMINE 50 MG CAP PO SCH (22:38)
--- NOTE | 2021-07-12 09:29 | Discharge Summary ---
Providers - Providers Date of Admission: 07/03/21 20:59 Date of discharge: 07/12/21 Attending physician: DEVIN DYER MD 07/03/21 20:58 Consult to Physician [CONS] Routine Comment: Consulting Provider: LEWIS FALLON Physician Instructions: Reason For Exam: manage existing medical issues Primary care physician: KIT ASSEMBLER Hospitalization Reason for admission: SI, hallucinations Admitting Diagnosis: F20.9 - SCHIZOPHRENIA, UNSPECIFIED Condition: Stable Hospital course: The patient was provided inpatient psychiatric treatment with safe and supportive care, medication adjustment, adverse effect monitoring, medical evaluations, medical treatments, assessment and psycho-education. The patient's mood, cognition, behavior, moral support are improved and stabilized. St the time of discharge, the patient had no endangering behavior and no debilitating adverse effects. The patient agreed on potential consequences of no treatment and gave informed consent. 07/05/2021: The patient was seen resting in bed. He continues to endorse anyaan ding auditory hallucinations " voices telling me to kill myself." The admits having suicidal ideation with a plan to overdose on pills. He denies visual hallucinations and denies homicidal ideation. 07/06/2021: The patient was seen this morning, he reports not doing well. He continues to endorse commanding auditory hallucinations " voices telling me to kill myself." The admits having suicidal ideation with a plan to overdose on pills. He denies visual hallucinations and denies homicidal ideation. 07/07/2021: The patient was seen resting in bed, he reports not doing well. The patient reports Being " a lot of pain with my depression and Lupus." He continues to endorse commanding auditory hallucinations " voices telling me to kill myself." The admits having suicidal ideation with a plan to overdose on pills. He denies visual hallucinations and denies homicidal ideation. Start Effexor 37.5mg po daily 07/08 The patient was seen today. He says he's not doing too good. His complaints are vague. He says he's homeless and needs a place to go. He says voices are bothering him. He says he's suicidal and didn't sleep well. The patient denies having a plan. 07/09 The patient was seen today. He says he's doing fine. The patient says he is suicidal because he has nowhere to go. He denies hallucinations 07/10 The patient was seen today. He says he's doing fine. The patient says "I don't have nowhere to go and that makes me suicidal." He says the people won't answer the phone where he was living. He denies hallucinations of any kind. 07/11 The patient was seen today. He states that he's doing alright. He says he didn't sleep well last night. When asking about SI, he says "not so much, I feel a lot better." He denies hallucinations. 07/12 The patient is clear from psych standpoint. Discharge order placed ye sterday but he patient did not leave. He denies SI/HI. He says he has hallucinations "sometimes" but they are not harmful. I spoke with the patient sister this morning at [phone] and discussed with her the patient progress and discharge status. I informed her that the patient would be leaving today. Disposition: 01 HOME / SELF CARE / HOMELESS Time spent for discharge: 35 Allergies/Adverse Reactions: Allergies metoclopramide [From Reglan] Allergy (Verified 09/27/20 13:41) Anaphylaxis prochlorperazine [From Compazine] Allergy (Verified 09/27/20 13:41) Anaphylaxis promethazine [From Phenergan] Allergy (Verified 09/27/20 13:41) Anaphylaxis rice Allergy (Verified 09/27/20 13:41) Hives Vital Signs: Last Vital Signs Temp 98.5 F 07/11/21 22:00 Pulse 64 07/11/21 22:38 Resp 18 07/11/21 22:00 BP 105/80 07/11/21 22:38 Pulse Ox 95 07/11/21 22:00 Last Lab: Laboratory Last Values POC Glucose 105 mg/dL (70-105) 07/09/21 20:06 Triglycerides 115 mg/dL (2-149) 07/04/21 05:33 Cholesterol 192 mg/dL (50-199) 07/04/21 05:33 LDL Cholesterol Direct 145 mg/dL (50-130) H 07/04/21 05:33 HDL Cholesterol 41 mg/dL (40-59) 07/04/21 05:33 Cholesterol/HDL Ratio 4.68 % 07/04/21 05:33 TSH 0.689 mlU/mL (0.270-4.200) 07/04/21 05:33 Hepatitis A IgM Ab Non-reactive (NonReactive) 07/04/21 05:33 Hep Bs Antigen Nonreactive (Negative) 07/04/21 05:33 Hep B Core IgM Ab Non-reactive (NonReactive) 07/04/21 05:33 Hepatitis C Antibody Non-reactive (NonReactive) 07/04/21 05:33 Core Measure Documentation - Palliative Care Palliative Care/ Comfort Measures: Not Applicable - Core Measures Any of the following diagnoses?: none Exam - Constitutional Vitals: Temp Pulse Resp BP Pulse Ox 98.5 F 64 18 105/80 95 07/11/21 22:00 07/11/21 22:38 07/11/21 22:00 07/11/21 22:38 07/11/21 22:00 General appearance: Present: no acute distress - EENT Eyes: Present: PERRL, EOM intact ENT: hearing intact, clear oral mucosa - Neck Neck: Present: supple, normal ROM - Respiratory Respiratory effort: normal Plan Activity: advance as tolerated Weight Bearing Status: Weight Bear as Tolerated Care Plan Goals: Maintain good and stable mental health Plan of Treatment: The patient should be compliant with medications, not to use drugs, and not to drink alcohol. The patient understands that if suicidal ideas, homicidal ideas or any endangering feeling arise, the patient should seek assistance including, but not limited to crisis hotline, and emergency room. Assessment: Schizoaffective Disorder Follow up with: PRIMARY CARE, [Primary Care Provider] - 7 Days Prescriptions: Melatonin [Melatonin 5MG TAB] 5 mg PO QHS PRN #30 tablet PRN Reason: Sleep ARIPiprazole [Abilify TAB] 15 mg PO QDAY #30 tablet busPIRone [Buspar] 10 mg PO BID #60 tablet Venlafaxine [Effexor 37.5mg tab] 37.5 mg PO DAILY #30 tablet
[2021-07-12] MEDS: ASPIRIN 325 MG TAB PO SCH (09:31)
[2021-07-12] MEDS: levETIRAcetam 500 MG TAB PO SCH ×2 (09:31→22:06)
[2021-07-12] MEDS: FUROSEMIDE 40 MG TAB PO SCH (09:31)
[2021-07-12] MEDS: CLOPIDOGREL 75 MG TAB PO SCH (09:32)
[2021-07-12] MEDS: ARIPiprazole 15 MG TAB PO SCH (09:32)
[2021-07-12] MEDS: EFAVIRENZ 200 MG CAP PO SCH (09:32)
[2021-07-12] MEDS: TENOFOVIR 300 MG TAB PO SCH (09:32)
[2021-07-12] MEDS: VENLAFAXINE 37.5 MG TAB PO SCH (09:32)
[2021-07-12] MEDS: POTASSIUM CHLORIDE ER 20 MEQ TAB PO SCH (09:32)
[2021-07-12] MEDS: EMTRICITABINE 200 MG CAP PO SCH (09:32)
[2021-07-12] MEDS: busPIRone 10 MG TAB PO SCH ×2 (09:32→22:06)
[2021-07-12] MEDS: METOPROLOL TARTRATE 100 MG TAB PO SCH ×2 (09:38→22:08)
--- NOTE | 2021-07-12 10:33 | Progress Note ---
Subjective Date of service: 07/12/21 Principal diagnosis: schizoaffective disorder Subjective Comment: The patient was seen today. He says he's doing fine. He is clear from a psych standpoint, but awaiting COVID and chest x ray to go to facility. The patient denies SI/HI or hallucinations. REVIEW OF SYSTEMS Constitutional: Negative for weight loss ENT: Negative for stridor Respiratory: Negative for cough or hemoptysis All other systems reviewed and are negative MENTAL STATUS EXAMINATION General Appearance and Behavior: Age appropriate, good hygiene, wearing appropriate clothes, sleeping, cooperative Cooperation: Participating Psychomotor Behavior: unremarkable and within normal limits Mood: "not good" Affect and affective range: congruent with mood Thought Process:hallucinating Thought Content: Suicidal Speech: Normal volume, Regular rate and rhythm, Suicidal Ideation: Yes Homicidal Ideation:Denies Hallucinations: Denies Delusions: None elicited Impulse Control: Questionable Insight and Judgment: Limited insight and poor judgment, Memory: Normal, Attention: Normal Orientation: Alert, oriented Assessment and Plan (1)Schizoaffective disorder, Bipolar type- F25.0 Current Visit: Yes Status: Acute Treatment Plan Patient admitted for inpatient psychiatric evaluation, medication adjustment and close monitoring The patient's behavior, mood, sleep and appetite will be closely monitored. Patient enrolled in individual and group therapeutic sessions and encouraged to attend. Patient provided with a safe and structured environment. Patient's physical health needs will be addressed by the Hospitalist. Hospitalist Consulted Labs including CBC, CMP, Lipid profile and Hemoglobin A1C levels ordered for baseline reference Social Assessment will be completed and the Hris Analyst will work with patient and family to ensure a suitable and safe disposition Medication adjustment will be made as clinically indicated Usual Wellness Evangelical/Preservation: - Start Trazodone 50 mg po QHS & 50 mg po QHS PRN between 10 PM & 2 AM for insomnia - Start Melatonin 5 mg po QHS to promote circadian rhythm The patient agreed on the treatment plan, understood the risk, benefit, alternative treatment, potential consequence of no treatment, and gave informed consent. Estimated days: 6 Post hospital care: primary care provider, psychiatric provider Case staffed with Dr. Coelho Medications and Allergies Allergies Allergy/AdvReac Type Severity Reaction Status Date / Time metoclopramide [From Reglan] Allergy Anaphylaxis Verified 09/27/20 13:41 prochlorperazine Allergy Anaphylaxis Verified 09/27/20 13:41 [From Compazine] promethazine [From Phenergan] Allergy Anaphylaxis Verified 09/27/20 13:41 rice Allergy Hives Verified 09/27/20 13:41 Home Medications Medication Instructions Recorded Confirmed Last Taken Type Albuterol Mdi (or & Nicu Only) 2 puff IH Q4H PRN 06/05/19 07/10/21 07/03/20 History [ProAir HFA Inhaler] Doxepin [SINEquan] 100 mg PO QHS 06/05/19 07/10/21 07/03/20 History Fluticasone/Salmeterol(Nf) [Advair 2 puff IH BID 06/05/19 07/10/21 07/03/20 History HFA 230-21 mcg] Furosemide [Lasix TAB] 40 mg PO QDAY 06/05/19 07/10/21 07/03/20 History 40 mg Ipratropium/Albuterol Sulfate 1 spray IH QID 06/05/19 07/10/21 07/03/20 History [Combivent Respimat] Potassium Chloride [K-Dur] 20 meq PO QDAY 06/05/19 07/10/21 07/03/20 16:00 Hi story 20 meq Nucynta 75 mg PO ONCE 04/13/20 07/10/21 07/03/20 16:00 History 75 mg Dicyclomine [Bentyl] 10 mg PO QID #30 capsule 04/14/20 07/10/21 07/03/20 Rx Metoprolol [Lopressor TAB] 100 mg PO BID #60 04/14/20 07/10/21 07/03/20 Rx 100 mg Phenytoin [Dilantin] 300 mg PO QHS #90 04/14/20 07/10/21 07/03/20 Rx 300 Triumeq 600-50-300 mg Tablet 600 mg PO DAILY 04/14/20 07/10/21 07/03/20 History 600-50-300 levETIRAcetam [Keppra TAB] 750 mg PO BID #90 tablet 04/14/20 07/10/21 07/03/20 Rx 750 Insulin NPH/Regular [NovoLIN 70/30] 20 unit SUB-Q QAM&QHS units 07/07/20 07/10/21 Unknown Rx Oxycodone HCl/Acetaminophen 1 each PO Q6HR PRN #10 07/07/20 07/10/21 Unknown Rx [Percocet 10/325 mg] Abacavir [Ziagen TAB] 600 mg PO DAILY tablet 07/12/20 07/10/21 Unknown Rx Acetaminophen [Acetaminophen TAB] 650 mg PO Q4H PRN tablet 07/12/20 07/10/21 Unknown Rx Arformoterol Nebu [Brovana Nebu] 15 mcg IH Q12HRT #1 ml 07/12/20 07/10/21 Unknown Rx Dolutegravir [Tivicay] 50 mg PO DAILY tablet 07/12/20 07/10/21 Unknown Rx AtorvaSTATin [Lipitor] 80 mg PO QHS #30 tablet 08/12/20 07/10/21 Unknown Rx Dexamethasone [Decadron] 6 mg PO DAILY #10 tablet 08/13/20 07/10/21 Unknown Rx diphenhydrAMINE [Benadryl CAP] 100 mg PO HS 09/29/20 07/10/21 Unknown History Aspirin 325 mg PO QDAY #30 tablet 10/04/20 07/10/21 Unknown Rx Budesonide [Pulmicort Respules] 0.5 mg IH Q12HRT #1 nebu 10/04/20 07/10/21 Unknown Rx Clopidogrel [Plavix] 75 mg PO DAILY #30 tablet 10/04/20 07/10/21 Unknown Rx Docusate Sodium [Colace CAP] 100 mg PO BID PRN #60 capsule 10/04/20 07/10/21 Unknown Rx ARIPiprazole [Abilify TAB] 15 mg PO QDAY #30 tablet 07/11/21 Unknown Rx Melatonin [Melatonin 5MG TAB] 5 mg PO QHS PRN #30 tablet 07/11/21 Unknown Rx Venlafaxine [Effexor 37.5mg tab] 37.5 mg PO DAILY #30 tablet 07/11/21 Unknown Rx busPIRone [Buspar] 10 mg PO BID #60 tablet 07/11/21 Unknown Rx Active Meds: Active Medications Aripiprazole (Aripiprazole 15 Mg Tab) 15 mg PO QDAY [facility] Last Admin: 07/12/21 09:32 Dose: 15 mg Documented by: Aspirin (Aspirin 325 Mg Tab) 325 mg PO QDAY [facility] Last Admin: 07/12/21 09:31 Dose: 325 mg Documented by: Atorvastatin Calcium (Atorvastatin 40 Mg Tab) 80 mg PO QHS [facility] Last Admin: 07/11/21 22:38 Dose: 80 mg Documented by: Buspirone HCl (Buspirone 10 Mg Tab) 10 mg PO BID [facility] Last Admin: 07/12/21 09:32 Dose: 10 mg Documented by: Clopidogrel Bisulfate (Clopidogrel 75 Mg Tab) 75 mg PO DAILY [facility] Last Admin: 07/12/21 09:32 Dose: 75 mg Documented by: Diphenhydramine HCl (Diphenhydramine 50 Mg Cap) 50 mg PO QHS [facility] Last Admin: 07/11/21 22:38 Dose: 50 mg Documented by: Efavirenz (Efavirenz 200 Mg Cap) 600 mg PO DAILY [facility] Last Admin: 07/12/21 09:32 Dose: 600 mg Documented by: Emtricitabine (Emtricitabine 200 Mg Cap) 200 mg PO DAILY [facility] Last Admin: 07/12/21 09:32 Dose: 200 mg Documented by: Furosemide (Furosemide 40 Mg Tab) 40 mg PO QDAY [facility] Last Admin: 07/12/21 09:31 Dose: 40 mg Documented by: Levetiracetam (Levetiracetam 500 Mg Tab) 750 mg PO BID [facility] Last Admin: 07/12/21 09:31 Dose: 750 mg Documented by: Melatonin (Melatonin 5 Mg Tab) 5 mg PO QHS PRN PRN Reason: Sleep Last Admin: 07/04/21 23:36 Dose: 5 mg Documented by: Metoprolol Tartrate (Metoprolol Tartrate 100 Mg Tab) 100 mg PO BID [facility] Last Admin: 07/12/21 09:38 Dose: Not Given Documented by: Potassium Chloride (Potassium Chloride Er 20 Meq Tab) 20 meq PO QDAY [facility] Last Admin: 07/12/21 09:32 Dose: 20 meq Documented by: Tenofovir Disoproxil Fumarate (Tenofovir 300 Mg Tab) 300 mg PO DAILY [facility] Last Admin: 07/12/21 09:32 Dose: 300 mg Documented by: Venlafaxine HCl (Venlafaxine 37.5 Mg Tab) 37.5 mg PO DAILY [facility] Last Admin: 07/12/21 09:32 Dose: 37.5 mg Documented by: Results - Results Labs/Vitals: Laboratory Last Values POC Glucose 105 mg/dL (70-105) 07/09/21 20:06 Triglycerides 115 mg/dL (2-149) 07/04/21 05:33 Cholesterol 192 mg/dL (50-199) 07/04/21 05:33 LDL Cholesterol Direct 145 mg/dL (50-130) H 07/04/21 05:33 HDL Cholesterol 41 mg/dL (40-59) 07/04/21 05:33 Cholesterol/HDL Ratio 4.68 % 07/04/21 05:33 TSH 0.689 mlU/mL (0.270-4.200) 07/04/21 05:33 Hepatitis A IgM Ab Non-reactive (NonReactive) 07/04/21 05:33 Hep Bs Antigen Nonreactive (Negative) 07/04/21 05:33 Hep B Core IgM Ab Non-reactive (NonReactive) 07/04/21 05:33 Hepatitis C Antibody Non-reactive (NonReactive) 07/04/21 05:33 Last Vital Signs Temp 97.9 F 07/12/21 08:39 Pulse 78 07/12/21 09:38 Resp 16 07/12/21 08:39 BP 123/59 07/12/21 09:38 Pulse Ox 97 07/12/21 08:39
--- NOTE | 2021-07-12 12:18 | XRay Report ---
CHEST 1 VIEW INDICATION / CLINICAL INFORMATION: tb check for facility placement STUDY TIME: 1050 COMPARISON: 08/19/2020 FINDINGS: SUPPORT DEVICES: None HEART / MEDIASTINUM: Stable. LUNGS / PLEURA: Mild scarring is seen in the left base. No acute infiltrates are noted. No obvious pl eural effusions are seen. No evidence of granulomatous disease exposure is identified. No pneumothora x. ADDITIONAL FINDINGS: No significant additional findings. Signer Name: Rigo Martins MD Signed: 07/12/2021 12:14 PM Workstation Name: [id number]
--- NOTE | 2021-07-12 15:56 | Progress Note ---
Assessment and Plan - Patient Problems (1) CVA (cerebral vascular accident) Current Visit: Yes Status: Acute Plan to address problem: Risk factor reduction, antiplatelet therapy (2) Hypertension Current Visit: Yes Status: Acute Qualifiers: Hypertension type: primary hypertension Qualified Code(s): I10 - Essential (primary) hypertension Plan to address problem: Monitor blood pressure every shift, continue medical management. (3) Obesity hypoventilation syndrome Current Visit: Yes Status: Acute Plan to address problem: Balanced diet, increase physical activity at discharge, outpatient pulmonary f ollow-up for sleep study History Interval history: 55 YO Male with HTN, PTSD, Bipolar Disorder, CVA with LHP admitted to [facility] for psychiatric stabilization. Pt seen and evaluated. No reported nursing events. Pt denies pain. Hospitalist Physical - Constitutional Vitals: Temp Pulse Resp BP Pulse Ox 97.9 F 78 16 123/59 97 07/12/21 08:39 07/12/21 09:38 07/12/21 08:39 07/12/21 09:38 07/12/21 08:39 General appearance: Present: no acute distress - EENT Eyes: Present: PERRL ENT: hearing intact - Neck Neck: Present: supple - Respiratory Respiratory effort: normal Respiratory: bilateral: CTA - Cardiovascular Rhythm: regular Heart Sounds: Present: S1 & S2 - Extremities Extremities: no ischemia Peripheral Pulses: within normal limits - Abdominal General gastrointestinal: soft, non-tender, non-distended - Integumentary Integumentary: Present: clear, dry - Psychiatric Psychiatric: cooperative - Neurologic Neurologic: CNII-XII intact, focal deficits, no moves all extremities, no gait normal Results - Labs Labs: Laboratory Last Values POC Glucose 105 mg/dL (70-105) 07/09/21 20:06 Triglycerides 115 mg/dL (2-149) 07/04/21 05:33 Cholesterol 192 mg/dL (50-199) 07/04/21 05:33 LDL Cholesterol Direct 145 mg/dL (50-130) H 07/04/21 05:33 HDL Cholesterol 41 mg/dL (40-59) 07/04/21 05:33 Cholesterol/HDL Ratio 4.68 % 07/04/21 05:33 TSH 0.689 mlU/mL (0.270-4.200) 07/04/21 05:33 Hepatitis A IgM Ab Non-reactive (NonReactive) 07/04/21 05:33 Hep Bs Antigen Nonreactive (Negative) 07/04/21 05:33 Hep B Core IgM Ab Non-reactive (NonReactive) 07/04/21 05:33 Hepatitis C Antibody Non-reactive (NonReactive) 07/04/21 05:33 [place]yer/IV: Voiding Method Toilet Active Medications - Current Medications Current Medications: Generic Name Dose Route Start Last Admin Trade Name Freq PRN Reason Stop Dose Admin Aripiprazole 15 mg 07/08/21 12:00 07/12/21 09:32 Aripiprazole 15 Mg Tab PO 15 mg QDAY DEBRA Administration Aspirin 325 mg 07/05/21 10:00 07/12/21 09:31 Aspirin 325 Mg Tab PO 325 mg QDAY DEBRA Administration Atorvastatin Calcium 80 mg 07/04/21 22:00 07/11/21 22:38 Atorvastatin 40 Mg Tab PO 80 mg QHS DEBRA Administration Buspirone HCl 10 mg 07/05/21 10:00 07/12/21 09:32 Buspirone 10 Mg Tab PO 10 mg BID DEBRA Administration Clopidogrel Bisulfate 75 mg 07/05/21 10:00 07/12/21 09:32 Clopidogrel 75 Mg Tab PO 75 mg DAILY DEBRA Administration Diphenhydramine HCl 50 mg 07/05/21 22:00 07/11/21 22:38 Diphenhydramine 50 Mg Cap PO 50 mg QHS DEBRA Administration Efavirenz 600 mg 07/06/21 15:00 07/12/21 09:32 Efavirenz 200 Mg Cap PO 600 mg DAILY DEBRA Administration Emtricitabine 200 mg 07/06/21 15:00 07/12/21 09:32 Emtricitabine 200 Mg Cap PO 200 mg DAILY DEBRA Administration Furosemide 40 mg 07/05/21 10:00 07/12/21 09:31 Furosemide 40 Mg Tab PO 40 mg QDAY DEBRA Administration Levetiracetam 750 mg 07/04/21 22:00 07/12/21 09:31 Levetiracetam 500 Mg Tab PO 750 mg BID DEBRA Administration Melatonin 5 mg 07/04/21 23:27 07/04/21 23:36 Melatonin 5 Mg Tab PO 5 mg QHS PRN Administration Sleep Metoprolol Tartrate 100 mg 07/04/21 22:00 07/12/21 09:38 Metoprolol Tartrate 100 Mg Tab PO Not Given BID DEBRA Potassium Chloride 20 meq 07/05/21 10:00 07/12/21 09:32 Potassium Chloride Er 20 Meq Tab PO 20 meq QDAY DEBRA Administration Tenofovir Disoproxil Fumarate 300 mg 07/06/21 15:00 07/12/21 09:32 Tenofovir 300 Mg Tab PO 300 mg DAILY [facility] Administration Venlafaxine HCl 37.5 mg 07/07/21 10:00 07/12/21 09:32 Venlafaxine 37.5 Mg Tab PO 37.5 mg DAILY DEBRA Administration Nutrition/Malnutrition Assess - Dietary Evaluation Nutrition/Malnutrition Findings: Nutrition Notes Start: 07/08/21 12:48 Freq: Status: Active Protocol: Document 07/08/21 12:48 GB (Rec: 07/08/21 13:02 GB [id number]) Nutrition Notes Need for Assessment generated from: LOS Initial or Follow up Assessment Other Pertinent Diagnosis Schizoaffective disorder Current Diet Cardiac/consistent carbohydrate Labs/Tests POC gluocse 115 Pertinent Medications furosemide, KCl Height 5 ft 11 in Weight 99.79 kg [place] Body Weight (kg) 78.18 BMI 30.7 Intake Prior to Admission Good Weight change and time frame No reported weight changes upon admission Weight Status Obese Subjective/Other Information per chart pt states he is homeless, suicidal Percent of energy/protein needs met: 100% Burn Absent Trauma Absent GI Symptoms None Food Allergy Yes Skin Integrity/Comment No reported complications Current % PO Good (75-100%) Minimum of two criteria No #1 Nutrition Diagnosis No nutrition diagnosis at this time Etiology schizoaffective disorder As Evidenced by Signs and Symptoms good po, no reported significant weight changes Is patient on ventilator? No Is Patient Ambulatory and/or Out of Bed Yes REE-([place]-ambulatory/OOB) [ 2424.539 NUTR.[id number]] Kcal/Kg value to use for calculation 20 Approximate Energy Requirements Using 1996 kcal/Kg Calculation Used for Recommendations Kcal/kg Additional Notes Protein: 0.8-1 g/kg @ 100k-100g Fluids: 1ml/kcal or per MD Nutrition Intervention Change Diet Order: cardiac/consistent carbohydrate - continue Nutrition Support: n/a Add Supplement/Snack (indicate name/kcal n/a /protein ) Goal #1 PO intake of meals to continue at 75% or greater daily for LOS Follow-Up By: 08/12/21 Revisit per MD consult or patient Sign Off request:
--- NOTE | 2021-07-12 16:01 | Progress Note ---
Assessment and Plan - Patient Problems (1) CVA (cerebral vascular accident) Current Visit: Yes Status: Acute Plan to address problem: Risk factor reduction, antiplatelet therapy (2) Hypertension Current Visit: Yes Status: Acute Qualifiers: Hypertension type: primary hypertension Qualified Code(s): I10 - Essential (primary) hypertension Plan to address problem: Monitor blood pressure every shift, continue medical management. (3) Obesity hypoventilation syndrome Current Visit: Yes Status: Acute Plan to address problem: Balanced diet, increase physical activity at discharge, outpatient pulmonary f ollow-up for sleep study History Interval history: 55 YO Male with HTN, PTSD, Bipolar Disorder, CVA with LHP admitted to [facility] for psychiatric stabilization. Pt seen and evaluated. No reported nursing events. Pt denies pain. Hospitalist Physical - Constitutional Vitals: Temp Pulse Resp BP Pulse Ox 97.9 F 78 16 123/59 97 07/12/21 08:39 07/12/21 09:38 07/12/21 08:39 07/12/21 09:38 07/12/21 08:39 General appearance: Present: no acute distress - EENT Eyes: Present: PERRL, EOM intact ENT: hearing decreased - Neck Neck: Present: supple - Respiratory Respiratory effort: normal Respiratory: bilateral: CTA - Cardiovascular Rhythm: regular Heart Sounds: Present: S1 & S2 - Extremities Extremities: no ischemia Peripheral Pulses: within normal limits - Abdominal General gastrointestinal: soft, non-tender, non-distended - Integumentary Integumentary: Present: clear, dry - Psychiatric Psychiatric: cooperative - Neurologic Neurologic: CNII-XII intact Results - Labs Labs: Laboratory Last Values POC Glucose 105 mg/dL (70-105) 07/09/21 20:06 Triglycerides 115 mg/dL (2-149) 07/04/21 05:33 Cholesterol 192 mg/dL (50-199) 07/04/21 05:33 LDL Cholesterol Direct 145 mg/dL (50-130) H 07/04/21 05:33 HDL Cholesterol 41 mg/dL (40-59) 07/04/21 05:33 Cholesterol/HDL Ratio 4.68 % 07/04/21 05:33 TSH 0.689 mlU/mL (0.270-4.200) 07/04/21 05:33 Hepatitis A IgM Ab Non-reactive (NonReactive) 07/04/21 05:33 Hep Bs Antigen Nonreactive (Negative) 07/04/21 05:33 Hep B Core IgM Ab Non-reactive (NonReactive) 07/04/21 05:33 Hepatitis C Antibody Non-reactive (NonReactive) 07/04/21 05:33 Iyer/IV: Voiding Method Toilet Active Medications - Current Medications Current Medications: Generic Name Dose Route Start Last Admin Trade Name Freq PRN Reason Stop Dose Admin Aripiprazole 15 mg 07/08/21 12:00 07/12/21 09:32 Aripiprazole 15 Mg Tab PO 15 mg QDAY DEBRA Administration Aspirin 325 mg 07/05/21 10:00 07/12/21 09:31 Aspirin 325 Mg Tab PO 325 mg QDAY DEBRA Administration Atorvastatin Calcium 80 mg 07/04/21 22:00 07/11/21 22:38 Atorvastatin 40 Mg Tab PO 80 mg QHS DEBRA Administration Buspirone HCl 10 mg 07/05/21 10:00 07/12/21 09:32 Buspirone 10 Mg Tab PO 10 mg BID DEBRA Administration Clopidogrel Bisulfate 75 mg 07/05/21 10:00 07/12/21 09:32 Clopidogrel 75 Mg Tab PO 75 mg DAILY DEBRA Administration Diphenhydramine HCl 50 mg 07/05/21 22:00 07/11/21 22:38 Diphenhydramine 50 Mg Cap PO 50 mg QHS DEBRA Administration Efavirenz 600 mg 07/06/21 15:00 07/12/21 09:32 Efavirenz 200 Mg Cap PO 600 mg DAILY DEBRA Administration Emtricitabine 200 mg 07/06/21 15:00 07/12/21 09:32 Emtricitabine 200 Mg Cap PO 200 mg DAILY DEBRA Administration Furosemide 40 mg 07/05/21 10:00 07/12/21 09:31 Furosemide 40 Mg Tab PO 40 mg QDAY DEBRA Administration Levetiracetam 750 mg 07/04/21 22:00 07/12/21 09:31 Levetiracetam 500 Mg Tab PO 750 mg BID DEBRA Administration Melatonin 5 mg 07/04/21 23:27 07/04/21 23:36 Melatonin 5 Mg Tab PO 5 mg QHS PRN Administration Sleep Metoprolol Tartrate 100 mg 07/04/21 22:00 07/12/21 09:38 Metoprolol Tartrate 100 Mg Tab PO Not Given BID DEBRA Potassium Chloride 20 meq 07/05/21 10:00 07/12/21 09:32 Potassium Chloride Er 20 Meq Tab PO 20 meq QDAY DEBRA Administration Tenofovir Disoproxil Fumarate 300 mg 07/06/21 15:00 07/12/21 09:32 Tenofovir 300 Mg Tab PO 300 mg DAILY DEBRA Administration Venlafaxine HCl 37.5 mg 07/07/21 10:00 07/12/21 09:32 Venlafaxine 37.5 Mg Tab PO 37.5 mg DAILY DEBRA Administration Nutrition/Malnutrition Assess - Dietary Evaluation Nutrition/Malnutrition Findings: Nutrition Notes Start: 07/08/21 12:48 Freq: Status: Active Protocol: Document 07/08/21 12:48 GB (Rec: 07/08/21 13:02 GB [id number]) Nutrition Notes Need for Assessment generated from: LOS Initial or Follow up Assessment Other Pertinent Diagnosis Schizoaffective disorder Current Diet Cardiac/consistent carbohydrate Labs/Tests POC gluocse 115 Pertinent Medications furosemide, KCl Height 5 ft 11 in Weight 99.79 kg [place] Body Weight (kg) 78.18 BMI 30.7 Intake Prior to Admission Good Weight change and time frame No reported weight changes upon admission Weight Status Obese Subjective/Other Information per chart pt states he is homeless, suicidal Percent of energy/protein needs met: 100% Burn Absent Trauma Absent GI Symptoms None Food Allergy Yes Skin Integrity/Comment No reported complications Current % PO Good (75-100%) Minimum of two criteria No #1 Nutrition Diagnosis No nutrition diagnosis at this time Etiology schizoaffective disorder As Evidenced by Signs and Symptoms good po, no reported significant weight changes Is patient on ventilator? No Is Patient Ambulatory and/or Out of Bed Yes REE-(Welcome-[facility]-ambulatory/OOB) [ 2424.539 [id number]] Kcal/Kg value to use for calculation 20 Approximate Energy Requirements Using 1996 kcal/Kg Calculation Used for Recommendations Kcal/kg Additional Notes Protein: 0.8-1 g/kg @ 100k-100g Fluids: 1ml/kcal or per MD Nutrition Intervention Change Diet Order: cardiac/consistent carbohydrate - continue Nutrition Support: n/a Add Supplement/Snack (indicate name/kcal n/a /protein ) Goal #1 PO intake of meals to continue at 75% or greater daily for LOS Follow-Up By: 08/12/21 Revisit per MD consult or patient Sign Off request:
[2021-07-12] MEDS: diphenhydrAMINE 50 MG CAP PO SCH (22:06)
[2021-07-13 08:29] VITALS: BP 98/63
[2021-07-13] MEDS: ASPIRIN 325 MG TAB PO SCH (09:34)
[2021-07-13] MEDS: TENOFOVIR 300 MG TAB PO SCH (09:34)
[2021-07-13] MEDS: levETIRAcetam 500 MG TAB PO SCH (09:34)
[2021-07-13] MEDS: FUROSEMIDE 40 MG TAB PO SCH (09:34)
[2021-07-13] MEDS: CLOPIDOGREL 75 MG TAB PO SCH (09:34)
[2021-07-13] MEDS: POTASSIUM CHLORIDE ER 20 MEQ TAB PO SCH (09:34)
[2021-07-13] MEDS: ARIPiprazole 15 MG TAB PO SCH (09:34)
[2021-07-13] MEDS: EFAVIRENZ 200 MG CAP PO SCH (09:35)
[2021-07-13] MEDS: VENLAFAXINE 37.5 MG TAB PO SCH (09:35)
[2021-07-13] MEDS: busPIRone 10 MG TAB PO SCH (09:35)
[2021-07-13] MEDS: EMTRICITABINE 200 MG CAP PO SCH (09:35)
--- NOTE | 2021-07-13 10:26 | Discharge Summary ---
Providers - Providers Date of Admission: 07/03/21 20:59 Date of discharge: 07/13/21 Attending physician: DEVIN DYER MD 07/03/21 20:58 Consult to Physician [CONS] Routine Comment: Consulting Provider: LEWIS FALLON Physician Instructions: Reason For Exam: manage existing medical issues Primary care physician: [employer] Hospitalization Reason for admission: SI Admitting Diagnosis: F25.9 - SCHIZOAFFECTIVE DISORDER, UNSPECIFIED Condition: Stable Hospital course: The patient was provided inpatient psychiatric treatment with safe and supportive care, medication adjustment, adverse effect monitoring, medical evaluations, medical treatments, assessment and psycho-education. The patient's mood, cognition, behavior, moral support are improved and stabilized. St the time of discharge, the patient had no endangering behavior and no debilitating adverse effects. The patient agreed on potential consequences of no treatment and gave informed consent. 07/05/2021: The patient was seen resting in bed. He continues to endorse commanding auditory hallucinations " voices telling me to kill myself." The admits having suicidal ideation with a plan to overdose on pills. He denies visual hallucinations and denies homicidal ideation. 07/06/2021: The patient was seen this morning, he reports not doing well. He continues to endorse commanding auditory hallucinations " voices telling me to kill myself." The admits having suicidal ideation with a plan to overdose on pills. He denies visual hallucinations and denies homicidal ideation. 07/07/2021: The patient was seen resting in bed, he reports not doing well. The patient reports Being " a lot of pain with my depression and Lupus." He continues to endorse commanding auditory hallucinations " voices telling me to kill myself." The admits having suicidal ideation with a plan to overdose on pills. He denies visual hallucinations and denies homicidal ideation. Start Effexor 37.5mg po daily 07/08 The patient was seen today. He says he's not doing too good. His complaints are vague. He says he's homeless and needs a place to go. He says voices are bothering him. He says he's suicidal and didn't sleep well. The patient denies having a plan. 07/09 The patient was seen today. He says he's doing fine. The patient says he is suicidal because he has nowhere to go. He denies hallucinations 07/10 The patient was seen today. He says he's doing fine. The patient says "I don't have nowhere to go and that makes me suicidal." He says the people won't answer the phone where he was living. He denies hallucinations of any kind. 07/11 The patient was seen today. He states that he's doing alright. He says he didn't sleep well last night. When asking about SI, he says "not so much, I feel a lot better." He denies hallucinations. 07/12 The patient is clear from psych standpoint. Discharge order placed yesterd ay but he patient did not leave. He denies SI/HI. He says he has hallucinations "sometimes" but they are not harmful. I spoke with the patient sister this morning at [phone] and discussed with her the patient progress and discharge status. I informed her that the patient would be leaving today. 07/13 The patient was seen today. He denies SI/HI, hallucinations. Disposition: 01 HOME / SELF CARE / HOMELESS Time spent for discharge: 35 Allergies/Adverse Reactions: Allergies metoclopramide [From Reglan] Allergy (Verified 09/27/20 13:41) Anaphylaxis prochlorperazine [From Compazine] Allergy (Verified 09/27/20 13:41) Anaphylaxis promethazine [From Phenergan] Allergy (Verified 09/27/20 13:41) Anaphylaxis rice Allergy (Verified 09/27/20 13:41) Hives Vital Signs: Last Vital Signs Temp 98.6 F 07/13/21 08:01 Pulse 63 07/13/21 08:01 Resp 18 07/13/21 08:01 BP 98/63 07/13/21 08:01 Pulse Ox 96 07/13/21 08:01 Last Lab: Laboratory Last Values POC Glucose 105 mg/dL (70-105) 07/09/21 20:06 Triglycerides 115 mg/dL (2-149) 07/04/21 05:33 Cholesterol 192 mg/dL (50-199) 07/04/21 05:33 LDL Cholesterol Direct 145 mg/dL (50-130) H 07/04/21 05:33 HDL Cholesterol 41 mg/dL (40-59) 07/04/21 05:33 Cholesterol/HDL Ratio 4.68 % 07/04/21 05:33 TSH 0.689 mlU/mL (0.270-4.200) 07/04/21 05:33 Hepatitis A IgM Ab Non-reactive (NonReactive) 07/04/21 05:33 Hep Bs Antigen Nonreactive (Negative) 07/04/21 05:33 Hep B Core IgM Ab Non-reactive (NonReactive) 07/04/21 05:33 Hepatitis C Antibody Non-reactive (NonReactive) 07/04/21 05:33 Core Measure Documentation - Palliative Care Palliative Care/ Comfort Measures: Not Applicable - Core Measures Any of the following diagnoses?: none Exam - Constitutional Vitals: Temp Pulse Resp BP Pulse Ox 98.6 F 63 18 98/63 96 07/13/21 08:01 07/13/21 08:01 07/13/21 08:01 07/13/21 08:01 07/13/21 08:01 General appearance: Present: no acute distress - EENT Eyes: Present: PERRL, EOM intact ENT: hearing intact, clear oral mucosa - Neck Neck: Present: supple, normal ROM - Respiratory Respiratory effort: normal Plan Activity: advance as tolerated Weight Bearing Status: Weight Bear as Tolerated Care Plan Goals: Maintain good and stable mental health Plan of Treatment: The patient should be compliant with medications, not to use drugs, and not to drink alcohol. The patient understands that if suicidal ideas, homicidal ideas or any endangering feeling arise, the patient should seek assistance including, but not limited to crisis hotline, and emergency room. Assessment: Schizoaffective Disorder Follow up with: PRIMARY CARE, [Primary Care Provider] - 7 Days Prescriptions: Melatonin [Melatonin 5MG TAB] 5 mg PO QHS PRN #30 tablet PRN Reason: Sleep ARIPiprazole [Abilify TAB] 15 mg PO QDAY #30 tablet busPIRone [Buspar] 10 mg PO BID #60 tablet Venlafaxine [Effexor 37.5mg tab] 37.5 mg PO DAILY #30 tablet
--- NOTE | 2021-07-13 10:57 | Event Note ---
Date: 07/13/21 The patient is able to attend and participate in group. He can also ambulate without assistance.
[2021-07-13] MEDS: METOPROLOL TARTRATE 100 MG TAB PO SCH (11:21)
== END 2021-07-13 12:50 | disposition home or self-care (01) | DRG 885 ==
LOC: UNDOADMIN 18:49 → 3A 18:49 → 5A 20:59
PROVIDERS: ADMIT Psychiatry & Neurology Psychiatry; ATTEND Psychiatry & Neurology Psychiatry
DX: F25.0 Schizoaffective disorder, bipolar type (principal); E66.2 Morbid (severe) obesity with alveolar hypoventilation; Z68.30 Body mass index [BMI] 30.0-30.9, adult; Z20.822 Contact with and (suspected) exposure to COVID-19; I10 Essential (primary) hypertension
CPT/HCPCS: 36415; 71045; 80053; 80061; 80074; 80307; 80320; 81001; 82962; 83036; 84443; 85025; 86592; 86593; 93005; 94760; 99285; G0378; G0480; J1815; U0003

== ENCOUNTER 2021-07-13 14:37 | Emergency (ER) | payer MEDICARE ==
--- NOTE | 2021-07-13 17:16 | Emergency Department Report ---
ED General Adult HPI - General Chief complaint: Psych Stated complaint: CASE MANAGEMENT Time Seen by Provider: 07/13/21 16:41 Source: patient Mode of arrival: Wheelchair Limitations: No Limitations - History of Present Illness Initial comments: The patient presents to the emergency department with a chief complaint of suicidal ideation. Patient was just discharged from the geriatric psychiatric facility. Patient is wheelchair-bound secondary to a stroke 3 months ago. Patient states that he would kill himself by taking overdose of pills. Patient reports a history of suicidal attempt. Patient denies any homicidal ideation. Patient also denies any auditory or visual hallucinations. -: Sudden Severity scale (0 -10): 0 Consistency: constant Improves with: none Worsens with: none Associated Symptoms: denies other symptoms Treatments Prior to Arrival: none - Related Data Home Medications Medication Instructions Recorded Confirmed Last Taken Albuterol Mdi (or & Nicu Only) 2 puff IH Q4H PRN 06/05/19 07/10/21 07/03/20 [ProAir HFA Inhaler] Doxepin [SINEquan] 100 mg PO QHS 06/05/19 07/10/21 07/03/20 Fluticasone/Salmeterol(Nf) [Advair 2 puff IH BID 06/05/19 07/10/21 07/03/20 HFA 230-21 mcg] Furosemide [Lasix TAB] 40 mg PO QDAY 06/05/19 07/10/21 07/03/20 40 mg Ipratropium/Albuterol Sulfate 1 spray IH QID 06/05/19 07/10/21 07/03/20 [Combivent Respimat] Potassium Chloride [K-Dur] 20 meq PO QDAY 06/05/19 07/10/21 07/03/20 16:00 20 meq Nucynta 75 mg PO ONCE 04/13/20 07/10/21 07/03/20 16:00 75 mg Triumeq 600-50-300 mg Tablet 600 mg PO DAILY 04/14/20 07/10/21 07/03/20 600-50-300 diphenhydrAMINE [Benadryl CAP] 100 mg PO HS 09/29/20 07/10/21 Unknown Previous Rx's Medication Instructions Recorded Last Taken Type Dicyclomine [Bentyl] 10 mg PO QID #30 capsule 04/14/20 07/03/20 Rx Metoprolol [Lopressor TAB] 100 mg PO BID #60 04/14/20 07/03/20 Rx 100 mg Phenytoin [Dilantin] 300 mg PO QHS #90 04/14/20 07/03/20 Rx 300 levETIRAcetam [Keppra TAB] 750 mg PO BID #90 tablet 04/14/20 07/03/20 Rx 750 Insulin NPH/Regular [NovoLIN 70/30] 20 unit SUB-Q QAM&QHS units 07/07/20 Unknown Rx Oxycodone HCl/Acetaminophen 1 each PO Q6HR PRN #10 07/07/20 Unknown Rx [Percocet 10/325 mg] Abacavir [Ziagen TAB] 600 mg PO DAILY tablet 07/12/20 Unknown Rx Acetaminophen [Acetaminophen TAB] 650 mg PO Q4H PRN tablet 07/12/20 Unknown Rx Arformoterol Nebu [Brovana Nebu] 15 mcg IH Q12HRT #1 ml 07/12/20 Unknown Rx Dolutegravir [Tivicay] 50 mg PO DAILY tablet 07/12/20 Unknown Rx AtorvaSTATin [Lipitor] 80 mg PO QHS #30 tablet 08/12/20 Unknown Rx Dexamethasone [Decadron] 6 mg PO DAILY #10 tablet 08/13/20 Unknown Rx Aspirin 325 mg PO QDAY #30 tablet 10/04/20 Unknown Rx Budesonide [Pulmicort Respules] 0.5 mg IH Q12HRT #1 nebu 10/04/20 Unknown Rx Clopidogrel [Plavix] 75 mg PO DAILY #30 tablet 10/04/20 Unknown Rx Docusate Sodium [Colace CAP] 100 mg PO BID PRN #60 capsule 10/04/20 Unknown Rx ARIPiprazole [Abilify TAB] 15 mg PO QDAY #30 tablet 07/11/21 Unknown Rx Melatonin [Melatonin 5MG TAB] 5 mg PO QHS PRN #30 tablet 07/11/21 Unknown Rx Venlafaxine [Effexor 37.5mg tab] 37.5 mg PO DAILY #30 tablet 07/11/21 Unknown Rx busPIRone [Buspar] 10 mg PO BID #60 tablet 07/11/21 Unknown Rx Allergies Allergy/AdvReac Type Severity Reaction Status Date / Time metoclopramide [From Reglan] Allergy Anaphylaxis Verified 09/27/20 13:41 prochlorperazine Allergy Anaphylaxis Verified 09/27/20 13:41 [From Compazine] promethazine [From Phenergan] Allergy Anaphylaxis Verified 09/27/20 13:41 rice Allergy Hives Verified 09/27/20 13:41 ED Review of Systems ROS: Stated complaint: CASE MANAGEMENT Other details as noted in HPI Comment: All other systems reviewed and negative Constitutional: denies: chills, fever Eyes: denies: eye pain, eye discharge, vision change ENT: denies: ear pain, throat pain Respiratory: denies: cough, shortness of breath, wheezing Cardiovascular: denies: chest pain, palpitations Endocrine: no symptoms reported Gastrointestinal: denies: abdominal pain, nausea, diarrhea Genitourinary: denies: urgency, dysuria Musculoskeletal: denies: back pain, joint swelling, arthralgia Skin: denies: rash, lesions Neurological: denies: headache, weakness, paresthesias Psychiatric: suicidal thoughts. denies: anxiety, depression, auditory hallucinations, visual hallucinations, homicidal thoughts Hematological/Lymphatic: denies: easy bleeding, easy bruising ED Past Medical Hx - Past Medical History Previous Medical History?: Yes Hx Hypertension: Yes Hx CVA: Yes (left sided weakness) Hx Heart Attack/AMI: Yes Hx Congestive Heart Failure: Yes Hx Diabetes: No Hx Renal Disease: No Hx Arthritis: No Hx Seizures: No Hx Psychiatric Treatment: Yes (PTSD,depression) Hx Asthma: Yes Hx COPD: Yes Hx Dementia: No Hx HIV: Yes Additional medical history: Cerebral palsy - Surgical History Past Surgical History?: Yes Hx Cholecystectomy: No Hx Appendectomy: No Additional Surgical History: CABG - Social History Smoking Status: Current Every Day Smoker Substance Use Type: Alcohol - Medications Home Medications: Home Medications Medication Instructions Recorded Confirmed Last Taken Type Albuterol Mdi (or & Nicu Only) 2 puff IH Q4H PRN 06/05/19 07/10/21 07/03/20 History [ProAir HFA Inhaler] Doxepin [SINEquan] 100 mg PO QHS 06/05/19 07/10/21 07/03/20 History Fluticasone/Salmeterol(Nf) [Advair 2 puff IH BID 06/05/19 07/10/21 07/03/20 History HFA 230-21 mcg] Furosemide [Lasix TAB] 40 mg PO QDAY 06/05/19 07/10/21 07/03/20 History 40 mg Ipratropium/Albuterol Sulfate 1 spray IH QID 06/05/19 07/10/21 07/03/20 History [Combivent Respimat] Potassium Chloride [K-Dur] 20 meq PO QDAY 06/05/19 07/10/21 07/03/20 16:00 History 20 meq Nucynta 75 mg PO ONCE 04/13/20 07/10/21 07/03/20 16:00 History 75 mg Dicyclomine [Bentyl] 10 mg PO QID #30 capsule 04/14/20 07/10/21 07/03/20 Rx Metoprolol [Lopressor TAB] 100 mg PO BID #60 04/14/20 07/10/21 07/03/20 Rx 100 mg Phenytoin [Dilantin] 300 mg PO QHS #90 04/14/20 07/10/21 07/03/20 Rx 300 Triumeq 600-50-300 mg Tablet 600 mg PO DAILY 04/14/20 07/10/21 07/03/20 History 600-50-300 levETIRAcetam [Keppra TAB] 750 mg PO BID #90 tablet 04/14/20 07/10/21 07/03/20 Rx 750 Insulin NPH/Regular [NovoLIN 70/30] 20 unit SUB-Q QAM&QHS units 07/07/20 07/10/21 Unknown Rx Oxycodone HCl/Acetaminophen 1 each PO Q6HR PRN #10 07/07/20 07/10/21 Unknown Rx [Percocet 10/325 mg] Abacavir [Ziagen TAB] 600 mg PO DAILY tablet 07/12/20 07/10/21 Unknown Rx Acetaminophen [Acetaminophen TAB] 650 mg PO Q4H PRN tablet 07/12/20 07/10/21 Unknown Rx Arformoterol Nebu [Brovana Nebu] 15 mcg IH Q12HRT #1 ml 07/12/20 07/10/21 Unknown Rx Dolutegravir [Tivicay] 50 mg PO DAILY tablet 07/12/20 07/10/21 Unknown Rx AtorvaSTATin [Lipitor] 80 mg PO QHS #30 tablet 08/12/20 07/10/21 Unknown Rx Dexamethasone [Decadron] 6 mg PO DAILY #10 tablet 08/13/20 07/10/21 Unknown Rx diphenhydrAMINE [Benadryl CAP] 100 mg PO HS 09/29/20 07/10/21 Unknown History Aspirin 325 mg PO QDAY #30 tablet 10/04/20 07/10/21 Unknown Rx Budesonide [Pulmicort Respules] 0.5 mg IH Q12HRT #1 nebu 10/04/20 07/10/21 Unknown Rx Clopidogrel [Plavix] 75 mg PO DAILY #30 tablet 10/04/20 07/10/21 Unknown Rx Docusate Sodium [Colace CAP] 100 mg PO BID PRN #60 capsule 10/04/20 07/10/21 Unknown Rx ARIPiprazole [Abilify TAB] 15 mg PO QDAY #30 tablet 07/11/21 Unknown Rx Melatonin [Melatonin 5MG TAB] 5 mg PO QHS PRN #30 tablet 07/11/21 Unknown Rx Venlafaxine [Effexor 37.5mg tab] 37.5 mg PO DAILY #30 tablet 07/11/21 Unknown Rx busPIRone [Buspar] 10 mg PO BID #60 tablet 07/11/21 Unknown Rx ED Physical Exam - General Limitations: No Limitations General appearance: alert, in no apparent distress - Head Head exam: Present: atraumatic, normocephalic - Eye Eye exam: Present: normal appearance - ENT ENT exam: Present: mucous membranes moist - Neck Neck exam: Present: normal inspection - Respiratory Respiratory exam: Present: normal lung sounds bilaterally. Absent: respiratory distress - Cardiovascular Cardiovascular Exam: Present: regular rate, normal rhythm. Absent: systolic murmur, diastolic murmur, rubs, gallop - GI/Abdominal GI/Abdominal exam: Present: soft, normal bowel sounds - Rectal Rectal exam: Present: deferred - Back Exam Back exam: Present: normal inspection - Neurological Exam Neurological exam: Present: alert, oriented X3. Absent: CN II-XII intact, motor sensory deficit - Psychiatric Psychiatric exam: Present: normal mood, flat affect, suicidal ideation - Skin Skin exam: Present: warm, dry, intact, normal color. Absent: rash ED Course Vital Signs 07/13/21 07/13/21 07/13/21 14:49 16:21 22:26 Temperature 98.3 F 97.3 F L Pulse Rate 64 69 Respiratory 18 18 Rate Blood Pressure 122/78 Blood Pressure 136/73 [Left] O2 Sat by Pulse 98 97 100 Oximetry 07/13/21 22:31 Temperature Pulse Rate Respiratory 18 Rate Blood Pressure Blood Pressure [Left] O2 Sat by Pulse 100 Oximetry ED Medical Decision Making - Lab Data Result diagrams: 07/13/21 17:28 07/13/21 17:28 Lab Results 07/13/21 07/13/21 07/13/21 Range/Units 17:28 17:28 17:28 WBC 5.8 (4.5-11.0) K/mm3 RBC 4.81 (3.65-5.03) M/mm3 Hgb 15.2 (11.8-15.2) gm/dl Hct 43.9 (35.5-45.6) % MCV 91 (84-94) fl MCH 32 (28-32) pg MCHC 35 H (32-34) % RDW 12.9 L (13.2-15.2) % Plt Count 233 (140-440) K/mm3 Lymph % (Auto) 37.8 H (13.4-35.0) % [place] % (Auto) 7.8 H (0.0-7.3) % Eos % (Auto) 1.8 (0.0-4.3) % Baso % (Auto) 0.5 (0.0-1.8) % Lymph # (Auto) 2.2 (1.2-5.4) K/mm3 [place] # (Auto) 0.4 (0.0-0.8) K/mm3 Eos # (Auto) 0.1 (0.0-0.4) K/mm3 Baso # (Auto) 0.0 (0.0-0.1) K/mm3 Seg Neutrophils % 52.1 (40.0-70.0) % Seg Neutrophils # 3.0 (1.8-7.7) K/mm3 Sodium 134 L (137-145) mmol/L Potassium 4.3 (3.6-5.0) mmol/L Chloride 102.3 (98-107) mmol/L Carbon Dioxide 22 (22-30) mmol/L Anion Gap 14 mmol/L BUN 18 (9-20) mg/dL Creatinine 0.8 (0.8-1.3) mg/dL Estimated GFR > 60 ml/min BUN/Creatinine Ratio 23 % Glucose 106 H (75-100) mg/dL Calcium 8.5 (8.4-10.2) mg/dL Total Bilirubin 0.20 (0.1-1.2) mg/dL AST 41 H (5-40) units/L ALT 54 (7-56) units/L Alkaline Phosphatase 95 (35-129) units/L Total Protein 7.4 (6.3-8.2) g/dL Albumin 3.2 L (3.9-5) g/dL Albumin/Globulin Ratio 0.8 % Urine Color (Yellow) Urine Turbidity (Clear) Urine pH (5.0-7.0) Ur Specific [place] (1.003-1.030) Urine Protein (Negative) mg/dL Urine Glucose (UA) (Negative) mg/dL Urine Ketones (Negative) mg/dL Urine Blood (Negative) Urine Nitrite (Negative) Urine Bilirubin (Negative) Urine Urobilinogen (<2.0) mg/dL Ur Leukocyte Esterase (Negative) Urine WBC (Auto) (0.0-6.0) /HPF Urine RBC (Auto) (0.0-6.0) /HPF Urine Mucus /HPF Salicylates < 0.3 L (2.8-20.0) mg/dL Urine Opiates Screen Urine Methadone Screen Acetaminophen (10.0-30.0) ug/mL Ur Barbiturates Screen Ur Phencyclidine Scrn Ur Amphetamines Screen U Benzodiazepines Scrn Urine Cocaine Screen U Marijuana (THC) Screen Drugs of Abuse Note Plasma/Serum Alcohol (0-0.07) % 07/13/21 07/13/21 07/13/21 Range/Units 17:28 17:28 Unknown WBC (4.5-11.0) K/mm3 RBC (3.65-5.03) M/mm3 Hgb (11.8-15.2) gm/dl Hct (35.5-45.6) % MCV (84-94) fl MCH (28-32) pg MCHC (32-34) % RDW (13.2-15.2) % Plt Count (140-440) K/mm3 Lymph % (Auto) (13.4-35.0) % [place] % (Auto) (0.0-7.3) % Eos % (Auto) (0.0-4.3) % Baso % (Auto) (0.0-1.8) % Lymph # (Auto) (1.2-5.4) K/mm3 [place] # (Auto) (0.0-0.8) K/mm3 Eos # (Auto) (0.0-0.4) K/mm3 Baso # (Auto) (0.0-0.1) K/mm3 Seg Neutrophils % (40.0-70.0) % Seg Neutrophils # (1.8-7.7) K/mm3 Sodium (137-145) mmol/L Potassium (3.6-5.0) mmol/L Chloride (98-107) mmol/L Carbon Dioxide (22-30) mmol/L Anion Gap mmol/L BUN (9-20) mg/dL Creatinine (0.8-1.3) mg/dL Estimated GFR ml/min BUN/Creatinine Ratio % Glucose (75-100) mg/dL Calcium (8.4-10.2) mg/dL Total Bilirubin (0.1-1.2) mg/dL AST (5-40) units/L ALT (7-56) units/L Alkaline Phosphatase (35-129) units/L Total Protein (6.3-8.2) g/dL Albumin (3.9-5) g/dL Albumin/Globulin Ratio % Urine Color Yellow (Yellow) Urine Turbidity Clear (Clear) Urine pH 5.0 (5.0-7.0) Ur Specific [place] 1.015 (1.003-1.030) Urine Protein 100 mg/dl (Negative) mg/dL Urine Glucose (UA) Neg (Negative) mg/dL Urine Ketones Neg (Negative) mg/dL Urine Blood Sm (Negative) Urine Nitrite Neg (Negative) Urine Bilirubin Neg (Negative) Urine Urobilinogen < 2.0 (<2.0) mg/dL Ur Leukocyte Esterase Neg (Negative) Urine WBC (Auto) 1.0 (0.0-6.0) /HPF Urine RBC (Auto) 2.0 (0.0-6.0) /HPF Urine Mucus Few /HPF Salicylates (2.8-20.0) mg/dL Urine Opiates Screen Urine Methadone Screen Acetaminophen 5.0 L (10.0-30.0) ug/mL Ur Barbiturates Screen Ur Phencyclidine Scrn Ur Amphetamines Screen U Benzodiazepines Scrn Urine Cocaine Screen U Marijuana (THC) Screen Drugs of Abuse Note Plasma/Serum Alcohol < 0.01 (0-0.07) % 07/13/21 Range/Units Unknown WBC (4.5-11.0) K/mm3 RBC (3.65-5.03) M/mm3 Hgb (11.8-15.2) gm/dl Hct (35.5-45.6) % MCV (84-94) fl MCH (28-32) pg MCHC (32-34) % RDW (13.2-15.2) % Plt Count (140-440) K/mm3 Lymph % (Auto) (13.4-35.0) % [place] % (Auto) (0.0-7.3) % Eos % (Auto) (0.0-4.3) % Baso % (Auto) (0.0-1.8) % Lymph # (Auto) (1.2-5.4) K/mm3 [place] # (Auto) (0.0-0.8) K/mm3 Eos # (Auto) (0.0-0.4) K/mm3 Baso # (Auto) (0.0-0.1) K/mm3 Seg Neutrophils % (40.0-70.0) % Seg Neutrophils # (1.8-7.7) K/mm3 Sodium (137-145) mmol/L Potassium (3.6-5.0) mmol/L Chloride (98-107) mmol/L Carbon Dioxide (22-30) mmol/L Anion Gap mmol/L BUN (9-20) mg/dL Creatinine (0.8-1.3) mg/dL Estimated GFR ml/min BUN/Creatinine Ratio % Glucose (75-100) mg/dL Calcium (8.4-10.2) mg/dL Total Bilirubin (0.1-1.2) mg/dL AST (5-40) units/L ALT (7-56) units/L Alkaline Phosphatase (35-129) units/L Total Protein (6.3-8.2) g/dL Albumin (3.9-5) g/dL Albumin/Globulin Ratio % Urine Color (Yellow) Urine Turbidity (Clear) Urine pH (5.0-7.0) Ur Specific [place] (1.003-1.030) Urine Protein (Negative) mg/dL Urine Glucose (UA) (Negative) mg/dL Urine Ketones (Negative) mg/dL Urine Blood (Negative) Urine Nitrite (Negative) Urine Bilirubin (Negative) Urine Urobilinogen (<2.0) mg/dL Ur Leukocyte Esterase (Negative) Urine WBC (Auto) (0.0-6.0) /HPF Urine RBC (Auto) (0.0-6.0) /HPF Urine Mucus /HPF Salicylates (2.8-20.0) mg/dL Urine Opiates Screen Negative Urine Methadone Screen Negative Acetaminophen (10.0-30.0) ug/mL Ur Barbiturates Screen Negative Ur Phencyclidine Scrn Negative Ur Amphetamines Screen Negative U Benzodiazepines Scrn Negative Urine Cocaine Screen Negative U Marijuana (THC) Screen Negative Drugs of Abuse Note Disclamer Plasma/Serum Alcohol (0-0.07) % - Medical Decision Making 1013 applied Patient medically cleared Critical care attestation.: If time is entered above; I have spent that time in minutes in the direct care of this critically ill patient, excluding procedure time. ED Disposition Clinical Impression: Suicidal ideation Disposition: [address] [place] [address] Is pt being admited?: No Does the pt Need Aspirin: No Condition: Stable
[2021-07-13 18:00] LABS: Basophils % (Auto) 0.5 % (0.0-1.8); Eosinophils # (Auto) 0.1 K/mm3 (0.0-0.4); Eosinophils % (Auto) 1.8 % (0.0-4.3); Hematocrit 43.9 % (35.5-45.6); Hemoglobin 15.2 gm/dl (11.8-15.2); Lymphocytes # (Auto) 2.2 K/mm3 (1.2-5.4); Lymphocytes % (Auto) 37.8 % (13.4-35.0); Mean Corpuscular HGB Conc 35 % (32-34); Mean Corpuscular Volume 91 fl (84-94); Monocytes # (Auto) 0.4 K/mm3 (0.0-0.8); Monocytes % (Auto) 7.8 % (0.0-7.3); Platelet Count 233 K/mm3 (140-440); Red Blood Count 4.81 M/mm3 (3.65-5.03); Red Cell Distribution Width 12.9 % (13.2-15.2)
[2021-07-13 18:11] LABS: Alanine Aminotransferase 54 units/L (7-56); Albumin 3.2 g/dL (3.9-5); BUN/Creatinine Ratio 23; Blood Urea Nitrogen 18 mg/dL (9-20); Calcium 8.5 mg/dL (8.4-10.2); Hemolysis Index 12
[2021-07-13 19:00] LABS: Bilirubin,Urine NEG (Negative); Blood,Urine SM (Negative); Color,Urine Yellow (Yellow); Mucus,Urine FEW /HPF; Urobilinogen,Urine < 2.0 mg/dL (<2.0)
[2021-07-13 19:07] LABS: Amphetamine Screen,Urine Negative; Benzodiazepines Screen,Urine Negative; Cannabinoid Screen,Urine Negative; Cocaine Screen,Urine Negative; Methadone Screen,Urine Negative; Opiate Screen,Urine Negative
[2021-07-14 07:42] VITALS: BP 127/94
--- NOTE | 2021-07-14 10:07 | Emergency Department Report ---
Blank Doc - Documentation Documentation: 1005-Patient is here for psychiatric evaluation. He has been medically cleared. Psychiatric disposition is currently pending. 1120-psychiatric consult was noted. They're not recommending inpatient hospitalization. Patient is being discharged. He will contract for safety.
--- NOTE | 2021-07-14 10:33 | Consultation ---
History of Present Illness - Reason for Consult Consult date: 07/14/21 Reason for consult: SI - History of Present Psychiatric Illness The patient was seen today. He was just discharged from [facility] yesterday. The patient says he was brought back to the hospital because "they didn't have any available beds at the skilled nursing." He says "so I was brought back here." The patient says "I'm trying to do everything that I can with what I have." when asking the patient about SI/HI. He says "I was at first, but not as much." He asks me was case management coming to see him. The patient also asks me to contact his child welfare caseworker, in which I did, but did not receive an answer at either number. He denies hallucinations of any kind. Psych History Diagnoses: Bipolar, Schizoaffective, PTSD Suicide attempts or Self-harm behavior:Yes- Multiple Prior psychiatric hospitalizations: Yes Substance Abuse history:Denies Previous psychiatric medications tried:Remeron. Vistaril, Doxepin Outpatient treatment: Denies PAST MEDICAL HISTORY: none reported Family Psychiatric History: None reported or documented SOCIAL HISTORY Marital Status: Living Arrangements: Lives alone Employment Status:Disabled Access to guns/weapons: Yes Education: College History of Abuse: Denies Legal History: None reported REVIEW OF SYSTEMS Constitutional: Negative for weight loss ENT: Negative for stridor Respiratory: Negative for cough or hemoptysis All other systems reviewed and are negative MENTAL STATUS EXAMINATION General Appearance and Behavior: Age appropriate, good hygiene, wearing appropriate clothes, sleeping, cooperative Cooperation: Participating but drowsy Psychomotor Behavior: unremarkable and within normal limits Mood: okay Affect and affective range: congruent with mood Thought Process: goal directed Thought Content: none Speech: Normal volume, Regular rate and rhythm, Suicidal Ideation: "not as much" Homicidal Ideation: Denies Hallucinations: Denies Delusions: None elicited Impulse Control: Limited Insight and Judgment: Limited insight and poor judgment, Memory: Normal, Attention: Normal Orientation: Alert, oriented Assessment and Plan (1)Schizoaffective disorder, Bipolar type- F25.0 Treatment plan Consult case management Please continue prescribed home meds. Risks, benefits and alternatives of medications discussed with the patient, questions answered and consent obtained from patient. PSYCHOTHERAPY: Supportive psychotherapy provided MEDICAL: Per primary team DELIRIUM PRECAUTIONS: Please re-orient patient frequently, keep lights on during the day, and minimize benzodiazepines and opiates as these medications could worsen patient's confusion. SECURITY INSTALLER: Defer to primary Disposition: Do not recommend acute psychiatric inpatient treatment. The patient was just treated on [facility]. He states he was brought back here because there was no beds at the skilled nursing he was taken to. The case finisher to speak with the patient to make other arrangements. The patient understands that if SI/HI reoccur he is to seek immediate assistance. Will sign off. Thank you for the consult. Please contact with any questions and/or concerns. Case staffed with Dr. Coleho Medications and Allergies Allergies Allergy/AdvReac Type Severity Reaction Status Date / Time metoclopramide [From Reglan] Allergy Anaphylaxis Verified 09/27/20 13:41 prochlorperazine Allergy Anaphylaxis Verified 09/27/20 13:41 [From Compazine] promethazine [From Phenergan] Allergy Anaphylaxis Verified 09/27/20 13:41 rice Allergy Hives Verified 09/27/20 13:41 Home Medications Medication Instructions Recorded Confirmed Last Taken Type Albuterol Mdi (or & Nicu Only) 2 puff IH Q4H PRN 06/05/19 07/10/21 07/03/20 History [ProAir HFA Inhaler] Doxepin [SINEquan] 100 mg PO QHS 06/05/19 07/10/21 07/03/20 History Fluticasone/Salmeterol(Nf) [Advair 2 puff IH BID 06/05/19 07/10/21 07/03/20 History HFA 230-21 mcg] Furosemide [Lasix TAB] 40 mg PO QDAY 06/05/19 07/10/21 07/03/20 History 40 mg Ipratropium/Albuterol Sulfate 1 spray IH QID 06/05/19 07/10/21 07/03/20 History [Combivent Respimat] Potassium Chloride [K-Dur] 20 meq PO QDAY 06/05/19 07/10/21 07/03/20 16:00 History 20 meq Nucynta 75 mg PO ONCE 04/13/20 07/10/21 07/03/20 16:00 History 75 mg Dicyclomine [Bentyl] 10 mg PO QID #30 capsule 07/07/10/21 07/03/20 Rx Metoprolol [Lopressor TAB] 100 mg PO BID #60 04/14/20 07/10/21 07/03/20 Rx 100 mg Phenytoin [Dilantin] 300 mg PO QHS #90 04/14/20 07/10/21 07/03/20 Rx 300 Triumeq 600-50-300 mg Tablet 600 mg PO DAILY 04/14/20 07/10/21 07/03/20 History 600-50-300 levETIRAcetam [Keppra TAB] 750 mg PO BID #90 tablet 04/14/20 07/10/21 07/03/20 Rx 750 Insulin NPH/Regular [NovoLIN 70/30] 20 unit SUB-Q QAM&QHS units 07/07/20 07/10/21 Unknown Rx Oxycodone HCl/Acetaminophen 1 each PO Q6HR PRN #10 07/07/20 07/10/21 Unknown Rx [Percocet 10/325 mg] Abacavir [Ziagen TAB] 600 mg PO DAILY tablet 07/12/20 07/10/21 Unknown Rx Acetaminophen [Acetaminophen TAB] 650 mg PO Q4H PRN tablet 07/12/20 07/10/21 Unknown Rx Arformoterol Nebu [Brovana Nebu] 15 mcg IH Q12HRT #1 ml 07/12/20 07/10/21 Unknown Rx Dolutegravir [Tivicay] 50 mg PO DAILY tablet 07/12/20 07/10/21 Unknown Rx AtorvaSTATin [Lipitor] 80 mg PO QHS #30 tablet 08/12/20 07/10/21 Unknown Rx Dexamethasone [Decadron] 6 mg PO DAILY #10 tablet 08/13/20 07/10/21 Unknown Rx diphenhydrAMINE [Benadryl CAP] 100 mg PO HS 09/29/20 07/10/21 Unknown History Aspirin 325 mg PO QDAY #30 tablet 10/04/20 07/10/21 Unknown Rx Budesonide [Pulmicort Respules] 0.5 mg IH Q12HRT #1 nebu 10/04/20 07/10/21 Unknown Rx Clopidogrel [Plavix] 75 mg PO DAILY #30 tablet 10/04/20 07/10/21 Unknown Rx Docusate Sodium [Colace CAP] 100 mg PO BID PRN #60 capsule 10/04/20 07/10/21 Unknown Rx ARIPiprazole [Abilify TAB] 15 mg PO QDAY #30 tablet 07/11/21 Unknown Rx Melatonin [Melatonin 5MG TAB] 5 mg PO QHS PRN #30 tablet 07/11/21 Unknown Rx Venlafaxine [Effexor 37.5mg tab] 37.5 mg PO DAILY #30 tablet 07/11/21 Unknown Rx busPIRone [Buspar] 10 mg PO BID #60 tablet 07/11/21 Unknown Rx Mental Status Exam - Vital signs Last Vital Signs Temp 98 F 07/14/21 07:42 Pulse 86 07/14/21 07:42 Resp 20 07/14/21 07:42 BP 127/94 07/14/21 07:42 Pulse Ox 100 07/14/21 07:42 Results Result Diagrams: 07/13/21 17:28 07/13/21 17:28 Abnormal lab results 07/13/21 07/13/21 07/13/21 Range/Units 17:28 17:28 17:28 MCHC 35 H (32-34) % RDW 12.9 L (13.2-15.2) % Lymph % (Auto) 37.8 H (13.4-35.0) % [place] % (Auto) 7.8 H (0.0-7.3) % Sodium 134 L (137-145) mmol/L Glucose 106 H (75-100) mg/dL AST 41 H (5-40) units/L Albumin 3.2 L (3.9-5) g/dL Salicylates < 0.3 L (2.8-20.0) mg/dL Acetaminophen (10.0-30.0) ug/mL 07/13/21 Range/Units 17:28 MCHC (32-34) % RDW (13.2-15.2) % Lymph % (Auto) (13.4-35.0) % [place] % (Auto) (0.0-7.3) % Sodium (137-145) mmol/L Glucose (75-100) mg/dL AST (5-40) units/L Albumin (3.9-5) g/dL Salicylates (2.8-20.0) mg/dL Acetaminophen 5.0 L (10.0-30.0) ug/mL All other labs normal.
== END 2021-07-14 11:45 | disposition home or self-care (01) ==
LOC: ED 14:37 → EEVIPCON 14:37 → ED 07-14 11:45
DX: R45.851 Suicidal ideations (principal); F32.9 Major depressive disorder, single episode, unspecified; F43.10 Post-traumatic stress disorder, unspecified; Z20.822 Contact with and (suspected) exposure to COVID-19; I11.0 Hypertensive heart disease with heart failure; I50.9 Heart failure, unspecified; J44.9 Chronic obstructive pulmonary disease, unspecified; Z86.73 Personal history of transient ischemic attack (TIA), and cerebral infarction without residual deficits; Z21 Asymptomatic human immunodeficiency virus [HIV] infection status; G80.9 Cerebral palsy, unspecified; Z98.890 Other specified postprocedural states; F17.200 Nicotine dependence, unspecified, uncomplicated; Z88.6 Allergy status to analgesic agent; Z88.8 Allergy status to other drugs, medicaments and biological substances; Z91.018 Allergy to other foods
CPT/HCPCS: 36415; 80053; 80307; 81001; 85025; 99284; U0003; 80320; G0480

== ENCOUNTER 2022-06-27 01:12 | Emergency (ER) | payer MEDICAID ==
[2022-06-27 03:09] VITALS: BP 118/71
== END 2022-06-27 11:22 | disposition left against medical advice (07) ==
LOC: ED 01:12
DX: R11.2 Nausea with vomiting, unspecified (principal); R19.7 Diarrhea, unspecified; Z53.21 Procedure and treatment not carried out due to patient leaving prior to being seen by health care provider